=== PATIENT | female | born 1940 | race Caucasian/White ===

== ENCOUNTER 2017-02-16 23:35 | Emergency (ER) | payer MEDICARE, BC ==
[2017-02-16 23:35] VITALS: BMI 26.6
[2017-02-16 23:58] VITALS: RESP 20; TEMP 97.6
--- NOTE | 2017-02-17 00:07 | C.PDOC ---
History Of Present Illness The patient reports that she tripped and fell 1 hour [employer], and sustained forehead laceration. Denies LOC, dizziness, nausea, vomiting, vision changes, numbness, weakness. Time Seen by Provider: 02/16/17 23:37 Chief Complaint (Nursing): Abnormal Skin Integrity History Per: Patient History/Exam Limitations: no limitations Onset/Duration Of Symptoms: Persistent Current Symptoms Are (Timing): Still Present Quality Of Symptoms: Painful Severity: Mild Pain Scale Rating Of: 5 Recent travel outside of the [place]: No Past Medical History Reviewed: Historical Data, Nursing Documentation, Vital Signs Vital Signs: Last Vital Signs Temp 97.6 F 02/17/17 01:41 Pulse 82 02/17/17 01:41 Resp 20 02/17/17 01:41 BP 119/76 02/17/17 01:41 Pulse Ox 100 02/17/17 01:45 - Medical History PMH: Kidney Stones - [facility] Procedures CATARAC PHACOEMULS/ASPIR (09/11/13) CLOSED ENDOSCOPIC BIOPSY OF LARGE INTESTINE (02/11/14) CYSTOSCOPY NEC (11/27/06) ESOPHAGOGASTRODUODENOSCOPY [EGD] W/CLOSED BIOPSY (03/01/04) FLEXIBLE SIGMOIDOSCOPY (03/26/03) INJECT/INFUSE NEC (03/16/06) INSERT LENS AT CATAR EXT (09/11/13) MAGNETIC RESONANCE IMAGING OF SPINAL CANAL (11/28/06) REMOV URETERAL DRAIN (11/27/06) RETROGRADE PYELOGRAM (07/07/14) URETERAL CATHETERIZATION (07/07/14) Family History: States: No Known Family Hx - Social History Hx Tobacco Use: No Hx Alcohol Use: No Hx Substance Use: No - Immunization History Hx Tetanus Toxoid Vaccination: Yes Review Of Systems Except As Marked, All Systems Reviewed And Found Negative. Constitutional: Negative for: Fever, Chills Gastrointestinal: Negative for: Nausea, Vomiting Musculoskeletal: Negative for: Neck Pain Skin: Positive for: Other (+Forehead laceration) Neurological: Negative for: Weakness, Numbness, Dizziness Physical Exam - Physical Exam Appears: Non-toxic, No Acute Distress Skin: Warm, Dry, No Rash Head: Normacephalic, Laceration (1.0 cm linear laceration above the right eyebrow with minimal bleeding.) Eye(s): bilateral: Normal Inspection, PERRL, EOMI Ear(s): Bilateral: Normal Oral Mucosa: Moist Neck: No Midline Cervical Tenderness, No Paracervical Tenderness, No Step Off Deformity, Supple Chest: Symmetrical, No Deformity Cardiovascular: Rhythm Regular, No Friction Rub, No Murmur Respiratory: Normal Breath Sounds, No Accessory Muscle Use, No Rales, No Rhonchi , No Wheezing Gastrointestinal/Abdominal: Soft, No Tenderness Back: No CVA Tenderness, No Vertebral Tenderness, No Paraspinal Tenderness Extremity: Normal ROM, No Tenderness, No Deformity Neurological/Psych: Oriented x3, Normal Speech, Normal Cognition, Normal Cranial Nerves, Normal Motor, Other (No neuro deficit) Gait: Steady ED Course And Treatment O2 Sat by Pulse Oximetry: 100 (Room air) Pulse Ox Interpretation: Normal - CT Scan/US CT Head w/o contrast Other Rad Studies (CT/US): Read By Radiologist, Radiology Report Reviewed CT/US Interpretation: FINDINGS: Brain: No acute intracranial hemorrhage. Age- appropriate periventricular white matter disease. No edema. Bilateral basal ganglia calcifications are present. Ventricles: Age-appropriate ventriculomegaly. Bones: No acute displaced fracture. Sinuses: An air fluid level is identified within the right maxillary sinus, along with mucoperiosteal thickening. Mastoid air cells: Unremarkable as visualized. No mastoid effusion. IMPRESSION: No acute intracranial hemorrhage, or suspicious mass effect. Right maxillary sinus disease, as detailed above. CT Cervical Spine w/o contrast Other Rad Studies (CT/US): Read By Radiologist, Radiology Report Reviewed CT/US Interpretation: FINDINGS: Vertebrae: No acute fracture. Alignment: Preservation of the normal curvature of the cervical spine. Discs/spinal canal/ neural foramina: No acute findings. Degenerative disease is noted, with osteophyte formation and disc space narrowing. 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 Soft tissues: Symmetric. Lung apices: The visualized lung apices are clear. IMPRESSION: Degenerative disease, without acute fracture. Procedure: Wound Repair - Time Out Time Out: Side verified, Site verified - Procedure Procedure: Wound Repair: right forehead laceration - Consent Obtained Consent obtained: Verbal - Performed by Performed by: Mid-level Provider (Carlee) - Indications Indication(s):: Laceration - Location Location:: Face Shape:: Linear Dimensions Length cm: 1 Depth:: Epidermis - Anesthetic Technique Anesthetic Technique: Local Local/Regional Anesthetic:: Lidocaine 1% w/epi - Debris Debris:: None - Complexity Complexity:: Simple (one layer) - Wound repair method Sutures:: # (three), Size (5-0), Type (nylon), Technique (interrupted) - Patient tolerated procedure Patient Tolerated Procedure:: Well Medical Decision Making Medical Decision Making: Plan: Tetanus is up to date, no tetanus ordered. -CT Cervical Spine -CT Head w/o contrast -Tylenol -Bacitracin Progress: On re-exam, the patient reports improvement of symptoms. Ambulatory in the ED with steady gait, A&O x3. Lungs remain CTA, heart is RRR, airways are patent. Abdomen is soft, non-tender and the patient tolerating PO well. Follow up with the medical doctor within 1-2 days without fail. Return if worsened. Disposition - Disposition Referrals: [facility] [Outside] Disposition: HOME/ ROUTINE Disposition Time: 01:42 Condition: GOOD Additional Instructions: Wash the area with soap and water twice a day, then appky bacitracin and band- aid. Sutures to be removed within 5-7 days. return to the ED if change in behavior, vomiting, severe headache. Prescriptions: Bacitracin 1 gm TOP BID #1 tube Instructions: Laceration (DC), Head Injury in Children (ED) - Clinical Impression Clinical Impression: Laceration of forehead, Minor head injury
[2017-02-17] MEDS ORDERED: Bacitracin 500 Units/gm Oint Foilpak UD TOP ONE (00:20)
[2017-02-17] MEDS ORDERED: Epinephrine /Lidocaine HCL 1:100,000/2% 30 ml INJ ONE (00:20)
[2017-02-17] MEDS ORDERED: Bacitracin 500 Units/gm Oint Foilpak UD ONE (00:45)
[2017-02-17] MEDS ORDERED: Lidocaine 1% w Epi 1:100,000 Inj ONE (00:45)
--- NOTE | 2017-02-17 01:31 | CT ---
EXAM: CT Head Without Intravenous Contrast CLINICAL HISTORY: 76 years old, female; Pain; Headache and other: Forehead injury; Additional info: Head injury to the right forehead, headache TECHNIQUE: Axial computed tomography images of the head/brain without intravenous contrast. This CT exam was performed using one or more of the following dose reduction techniques: automated exposure control, adjustment of the mA and/or kV according to patient size, and/or use of iterative reconstruction technique. COMPARISON: No relevant prior studies available. FINDINGS: Brain: No acute intracranial hemorrhage. Age-appropriate periventricular white matter disease. No edema. Bilateral basal ganglia calcifications are present. Ventricles: Age-appropriate ventriculomegaly. Bones: No acute displaced fracture. Sinuses: An air fluid level is identified within the right maxillary sinus, along with mucoperiosteal thickening. Mastoid air cells: Unremarkable as visualized. No mastoid effusion. IMPRESSION: No acute intracranial hemorrhage, or suspicious mass effect. Right maxillary sinus disease, as detailed above.
--- NOTE | 2017-02-17 01:33 | CT ---
EXAM: CT Cervical Spine Without Intravenous Contrast CLINICAL HISTORY: 76 years old, female; Pain; Neck pain; Additional info: Fall, head injury TECHNIQUE: Axial computed tomography images of the cervical spine without intravenous contrast. This CT exam was performed using one or more of the following dose reduction techniques: automated exposure control, adjustment of the mA and/or kV according to patient size, and/or use of iterative reconstruction technique. Coronal and sagittal reformatted images were created and reviewed. COMPARISON: No relevant prior studies available. FINDINGS: Vertebrae: No acute fracture. Alignment: Preservation of the normal curvature of the cervical spine. Discs/spinal canal/neural foramina: No acute findings. Degenerative disease is noted, with osteophyte formation and disc space narrowing. 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 IMPRESSION: Degenerative disease, without acute fracture.
[2017-02-17 01:42] VITALS: BP 119/76; PULSE 82
[2017-02-17 01:45] VITALS: O2SAT 100
== END 2017-02-17 01:48 | disposition home or self-care (01) ==
LOC: C.ER 23:35
DX: S01.81XA Laceration without foreign body of other part of head, initial encounter (principal); W10.9XXA Fall (on) (from) unspecified stairs and steps, initial encounter; Y92.9 Unspecified place or not applicable

== ENCOUNTER 2017-02-22 12:55 | Emergency (ER) | payer MEDICARE, BC ==
[2017-02-22 12:56] VITALS: BMI 26.6
[2017-02-22 13:08] VITALS: BP 116/73; PULSE 77; TEMP 97.2; O2SAT 100
--- NOTE | 2017-02-22 14:02 | C.PDOC ---
- HPI Time Seen by Provider: 02/22/17 13:35 Chief Complaint (Nursing): Abnormal Skin Integrity Past Medical History Vital Signs: Last Vital Signs Temp 97.2 F L 02/22/17 13:04 Pulse 77 02/22/17 13:04 Resp 18 02/22/17 13:04 BP 116/73 02/22/17 13:04 Pulse Ox 100 02/22/17 13:04 - Medical History PMH: Kidney Stones Denies: Depression, Chronic Kidney Disease - [facility] Procedures CATARAC PHACOEMULS/ASPIR (09/11/13) CLOSED ENDOSCOPIC BIOPSY OF LARGE INTESTINE (02/11/14) CYSTOSCOPY NEC (11/27/06) ESOPHAGOGASTRODUODENOSCOPY [EGD] W/CLOSED BIOPSY (03/01/04) FLEXIBLE SIGMOIDOSCOPY (03/26/03) INJECT/INFUSE NEC (03/16/06) INSERT LENS AT CATAR EXT (09/11/13) MAGNETIC RESONANCE IMAGING OF SPINAL CANAL (11/28/06) REMOV URETERAL DRAIN (11/27/06) RETROGRADE PYELOGRAM (07/07/14) URETERAL CATHETERIZATION (07/07/14) Family History: States: Unknown Family Hx - Social History Hx Tobacco Use: No Hx Alcohol Use: No Hx Substance Use: No - Immunization History Hx Tetanus Toxoid Vaccination: Yes ED Course And Treatment O2 Sat by Pulse Oximetry: 100 Disposition Counseled Patient/Family Regarding: Diagnosis - Disposition Disposition: HOME/ ROUTINE Disposition Time: 14:00 Condition: GOOD Instructions: Head Injury (ED), Stitches Removal (ED) - Clinical Impression Clinical Impression: Fall, Head injury, Visit for suture removal
[2017-02-22] MEDS ORDERED: Bacitracin Ointment 30 GM TUBE TOP STA (14:14)
--- NOTE | 2017-02-22 14:14 | C.PDOC ---
History Of Present Illness 76 year old female presents to the ED for removal of stitches from the forehead but stated that she fell this morning hitting the back of her head. Patient reports slipping and having a mechanical fall on wood floor. Patient notes taking Tylenol but denies taking blood thinners. Patient had stitches placed on head 02/17/17. Patient notes minimal pain to back of the head, but denies LOC, dizziness, headache, SOB, vomiting, or any other complaints. Time Seen by Provider: 02/22/17 13:35 Chief Complaint (Nursing): Abnormal Skin Integrity History Per: Patient History/Exam Limitations: no limitations Onset/Duration Of Symptoms: Hrs Current Symptoms Are (Timing): Still Present Location Of Injury: Anterior: Face (Stitches removal), Posterior: Head (fell hitting head) Severity: Mild Past Medical History Reviewed: Historical Data, Nursing Documentation, Vital Signs Vital Signs: Last Vital Signs Temp 97.2 F L 02/22/17 13:04 Pulse 77 02/22/17 13:04 Resp 20 02/22/17 14:35 BP 116/73 02/22/17 13:04 Pulse Ox 100 02/22/17 14:29 - Medical History PMH: Kidney Stones - [facility] Procedures CATARAC PHACOEMULS/ASPIR (09/11/13) CLOSED ENDOSCOPIC BIOPSY OF LARGE INTESTINE (02/11/14) CYSTOSCOPY NEC (11/27/06) ESOPHAGOGASTRODUODENOSCOPY [EGD] W/CLOSED BIOPSY (03/01/04) FLEXIBLE SIGMOIDOSCOPY (03/26/03) INJECT/INFUSE NEC (03/16/06) INSERT LENS AT CATAR EXT (09/11/13) MAGNETIC RESONANCE IMAGING OF SPINAL CANAL (11/28/06) REMOV URETERAL DRAIN (11/27/06) RETROGRADE PYELOGRAM (07/07/14) URETERAL CATHETERIZATION (07/07/14) Family History: States: Unknown Family Hx - Social History Hx Tobacco Use: No Hx Alcohol Use: No Hx Substance Use: No - Immunization History Hx Tetanus Toxoid Vaccination: Yes Review Of Systems Except As Marked, All Systems Reviewed And Found Negative. Respiratory: Negative for: Shortness of Breath Gastrointestinal: Negative for: Vomiting Skin: Positive for: Bruising (Back of the head. Minimal pain fo rback of the head) Neurological: Positive for: Other. Negative for: Headache, Dizziness Physical Exam - Physical Exam Appears: Non-toxic, No Acute Distress Skin: Warm, Dry Head: Tenderness (Tenderness to palpation of the occipital and upper parietal head) Eye(s): bilateral: Normal Inspection, PERRL, EOMI Neck: Normal ROM, No Midline Cervical Tenderness, No Paracervical Tenderness Chest: Symmetrical Cardiovascular: Rhythm Regular, No Murmur Respiratory: Normal Breath Sounds, No Rales, No Rhonchi, No Wheezing Neurological/Psych: Oriented x3, Normal Speech, Normal Cognition, Normal Cranial Nerves (Cranial nerve 2-12 intact), No Cerebellar Signs ED Course And Treatment O2 Sat by Pulse Oximetry: 100 (Room air) Pulse Ox Interpretation: Normal Medical Decision Making Medical Decision Making: Sutures removed No indication for CT at this time Plan dc home - return to the ED for any few or worsening symptoms Disposition - Disposition Disposition: HOME/ ROUTINE Disposition Time: 00:00 Condition: GOOD Instructions: Stitches Removal (ED), Head Injury (ED) - Clinical Impression Clinical Impression: Fall, Head injury, Visit for suture removal - Scribe Statement The provider has reviewed the documentation as recorded by the Scribe Ankit clement All medical record entries made by the Scribe were at my direction and personally dictated by me. I have reviewed the chart and agree that the record accurately reflects my personal performance of the history, physical exam, medical decision making, and the department course for this patient. I have also personally directed, reviewed, and agree with the discharge instructions and disposition.
[2017-02-22] MEDS ORDERED: Bacitracin 500 Units/gm Oint Foilpak UD ONE (14:18)
[2017-02-22 14:35] VITALS: RESP 20
== END 2017-02-22 14:34 | disposition home or self-care (01) ==
LOC: C.ER 12:55
DX: Z48.02 Encounter for removal of sutures (principal); S09.90XA Unspecified injury of head, initial encounter; W01.0XXA Fall on same level from slipping, tripping and stumbling without subsequent striking against object, initial encounter; Y92.009 Unspecified place in unspecified non-institutional (private) residence as the place of occurrence of the external cause

== ENCOUNTER 2017-10-06 23:21 | Inpatient (IN) | payer MEDICARE, BC ==
[2017-10-06 23:22] VITALS: BMI 23.6
[2017-10-06] MEDS ORDERED: Sodium Chloride 0.9% 500 ML IV ONE (23:38)
--- NOTE | 2017-10-06 23:49 | C.PDOC ---
History Of Present Illness 76 year old female with a Hx of ulcerative colitis presents to the ER with a complaint of lower abdominal pain and cramping x1 day. Denies fever, nausea, vomiting, or other complaints. Time Seen by Provider: 10/06/17 23:25 Chief Complaint (Nursing): Abdominal Pain History Per: Patient History/Exam Limitations: no limitations Onset/Duration Of Symptoms: Days Current Symptoms Are (Timing): Still Present Location Of Pain/Discomfort: RUQ, LUQ Radiation Of Pain To:: None Quality Of Discomfort: Cramping Associated Symptoms: denies: Fever, Chills, Nausea, Vomiting Exacerbating Factors: None Alleviating Factors: None Recent travel outside of the [place]: No Abnormal Vaginal Bleeding: No Past Medical History Reviewed: Historical Data, Nursing Documentation, Vital Signs Vital Signs: Last Vital Signs Temp 97.7 F 10/08/17 08:42 Pulse 62 10/08/17 08:42 Resp 18 10/08/17 08:42 BP 105/66 10/08/17 08:42 Pulse Ox 96 10/08/17 08:42 - Medical History PMH: Kidney Stones - [facility] Procedures CATARAC PHACOEMULS/ASPIR (09/11/13) CLOSED ENDOSCOPIC BIOPSY OF LARGE INTESTINE (02/11/14) CYSTOSCOPY NEC (11/27/06) ESOPHAGOGASTRODUODENOSCOPY [EGD] W/CLOSED BIOPSY (03/01/04) FLEXIBLE SIGMOIDOSCOPY (03/26/03) INJECT/INFUSE NEC (03/16/06) INSERT LENS AT CATAR EXT (09/11/13) MAGNETIC RESONANCE IMAGING OF SPINAL CANAL (11/28/06) REMOV URETERAL DRAIN (11/27/06) RETROGRADE PYELOGRAM (07/07/14) URETERAL CATHETERIZATION (07/07/14) Family History: States: Unknown Family Hx - Social History Hx Tobacco Use: No Hx Alcohol Use: No Hx Substance Use: No - Immunization History Hx Tetanus Toxoid Vaccination: Yes Review Of Systems Constitutional: Negative for: Fever, Chills Gastrointestinal: Positive for: Abdominal Pain. Negative for: Nausea, Vomiting Physical Exam - Physical Exam Appears: Non-toxic, No Acute Distress Skin: Normal Color, Warm, Dry Head: Atraumatic, Normacephalic Eye(s): bilateral: Normal Inspection Oral Mucosa: Moist Chest: Symmetrical, No Tenderness Cardiovascular: Rhythm Regular Respiratory: Normal Breath Sounds, No Rales, No Rhonchi, No Wheezing Gastrointestinal/Abdominal: Soft, Tenderness (Mild lower), No Guarding, No Rebound Neurological/Psych: Oriented x3, Normal Speech, Other (No focal deficits) ED Course And Treatment - Laboratory Results Result Diagrams: 10/08/17 08:13 10/08/17 08:13 O2 Sat by Pulse Oximetry: 97 (Room air) Pulse Ox Interpretation: Normal Medical Decision Making Medical Decision Making: suspect uc flare Blood work, cultures, and urinalysis ordered. IV fluids administered. Disposition - Disposition Disposition: HOSPITALIZED Disposition Time: 03:00 Condition: STABLE - Clinical Impression Clinical Impression: Colitis, Ulcerative colitis - Scribe Statement The provider has reviewed the documentation as recorded by the Scribberkley Elder All medical record entries made by the Boibberkley were at my direction and personally dictated by me. I have reviewed the chart and agree that the record accurately reflects my personal performance of the history, physical exam, medical decision making, and the department course for this patient. I have also personally directed, reviewed, and agree with the discharge instructions and disposition.
[2017-10-07 00:18] LABS: WHITE BLOOD COUNT 9.4 K/uL (4.8-10.8)
[2017-10-07 00:21] LABS: BASO % 0.1 % (0.0-2.0); EOS # 0.1 K/uL (0.0-0.7); HEMATOCRIT 36.9 % (34.0-47.0); LYMPH # 0.8 K/uL (1.0-4.3); LYMPH % 8.5 % (20.0-40.0); MEAN CELL VOLUME 97.3 fL (81.0-99.0); MEAN CORPUSCULAR HEMOGLOBIN 33.2 pg (27.0-31.0); MEAN CORPUSCULAR HGB CONC 34.1 g/dL (33.0-37.0); MEAN PLATELET VOLUME 8.3 fL (7.2-11.7); MONO # 0.6 K/uL (0.0-0.8); MONO % 6.8 % (0.0-10.0); PLATELET COUNT 209 K/uL (130-400); RED CELL DISTRIBUTION WIDTH 12.6 % (11.5-14.5)
[2017-10-07 00:26] LABS: INR 1.1
[2017-10-07 00:36] LABS: VENOUS BLOOD GAS BASE EXCESS 6.9 mmol/L (0.0-2.0); VENOUS BLOOD GAS PCO2 52 mmHg (40-60); VENOUS BLOOD PH 7.41 (7.32-7.43)
[2017-10-07 00:44] LABS: ALB/GLOB RATIO 1.7 (1.0-2.1); ALKALINE PHOSPHATASE 63 U/L (38-126); ALT/SGPT 36 U/L (9-52); AST/SGOT 25 U/L (14-36); BILIRUBIN,TOTAL 0.7 mg/dL (0.2-1.3); BLOOD UREA NITROGEN 13 mg/dL (7-17); CALCIUM 8.4 mg/dl (8.6-10.4); CARBON DIOXIDE 28 mmol/L (22-30); CHLORIDE 97 mmol/L (98-107); GFR AFRICAN-AMERICAN > 60; GLUCOSE,RANDOM 109 mg/dL (65-105); POTASSIUM 3.3 mmol/L (3.6-5.2); SODIUM 134 mmol/L (132-148); TOTAL PROTEIN 6.5 g/dL (6.3-8.3)
[2017-10-07] MEDS ORDERED: Potassium Chloride 20 mEq ER Tab PO STA (00:45)
[2017-10-07 00:53] LABS: EOSINOPHIL 2 % (0-4); NEUTROPHIL 75 % (50-75); REACTIVE LYMPHOCYTES 1 % (0-0); TOTAL CELLS COUNTED 100
[2017-10-07] MEDS ORDERED: Potassium Chloride 20 mEq ER Tab PO ONE ×2 (01:22→01:23)
[2017-10-07 01:51] LABS: URINE BACTERIA RARE (<OCC); URINE BILIRUBIN NEGATIVE (NEGATIVE); URINE BLOOD 1+ (NEGATIVE); URINE COLOR Yellow (YELLOW); URINE GLUCOSE (UA) NORMAL (Normal); URINE KETONE NEGATIVE (NEGATIVE); URINE LEUKOCYTE ESTERASE NEG Leu/uL (Negative); URINE PROTEIN NEGATIVE (NEGATIVE); URINE UROBILINOGEN NORMAL mg/dL (0.2-1.0); WBC URINE 1 /hpf (0-5)
[2017-10-07] MEDS ORDERED: Iodixanol 320 MG/ML 200 ML BOTTLE IV ONE (02:51)
[2017-10-07] MEDS ORDERED: Iodixanol 320 mg/ml 150 ml Bottle IV ONE (02:52)
--- NOTE | 2017-10-07 03:58 | CT ---
EXAM: CT Abdomen and Pelvis With Intravenous Contrast EXAM DATE/TIME: 10/07/2017 12:45 AM CLINICAL HISTORY: 76 years old, female; Pain; Abdominal pain; Generalized; Additional info: Abd pain h/o of ulcerative colitis TECHNIQUE: Axial computed tomography images of the abdomen and pelvis with intravenous contrast. All CT scans at this facility use one or more dose reduction techniques, viz.: automated exposure control; ma/kV adjustment per patient size (including targeted exams where dose is matched to indication; i.e. head); or iterative reconstruction technique. Coronal and sagittal reformatted images were created and reviewed. CONTRAST: 100 mL of [id number] administered intravenously. COMPARISON: No relevant prior studies available. FINDINGS: LIMITATIONS: Moderate streak/motion artifact. LOWER THORAX: No infiltrate seen in the lung bases. ABDOMEN: LIVER: Fatty infiltration of the liver. GALLBLADDER AND BILE DUCTS: No CT evidence of acute cholecystitis. No evidence of significant biliary ductal dilatation. PANCREAS: No CT evidence of acute pancreatitis. SPLEEN: No acute abnormality of the spleen identified. ADRENALS: No acute abnormality of the adrenal glands identified. KIDNEYS AND URETERS: Bilateral extrarenal pelvises, a normal variant. No evidence of hydroureter or obstructing ureteral stones. STOMACH AND BOWEL: Mild circumferential wall thickening of the rectum, which could be secondary to proctitis. Intramural lipomatosis of the distal sigmoid colon. This is a nonspecific finding, but can be a sign of previous episodes of inflammatory bowel disease. Otherwise, no significant abnormality of the bowel is identified, allowing for motion artifact. No evidence of bowel obstruction. APPENDIX: Normal appendix is not seen, however, there are no significant inflammatory changes visualized in the expected location of the appendix to suggest appendicitis. Recommend clinical correlation. PELVIS: BLADDER: No acute abnormality of the bladder identified. REPRODUCTIVE: Uterus is surgically absent. ABDOMEN and PELVIS: INTRAPERITONEAL SPACE: No evidence of free intraperitoneal air or fluid. BONES/JOINTS: Bony structures appear demineralized. SOFT TISSUES: No acute abnormality of the visualized soft tissues is seen. VASCULATURE: No evidence of abdominal aortic aneurysm. No evidence of periaortic hemorrhage. LYMPH NODES: No evidence of diffuse lymphadenopathy. IMPRESSION: - Mild rectal wall thickening, which could represent proctitis. - Otherwise, no evidence of significant acute process, allowing for motion artifact. - See above for remaining findings.
[2017-10-07] MEDS ORDERED: Piperacill/Tazo 3.375gm in Dex 3.375 GM/50 ML BAG IVPB STA (04:00)
[2017-10-07] MEDS: Dextrose 5%/0.45% NS 1,000 ML IV SCH ×2 (06:47→17:00)
[2017-10-07 07:09] LABS: ALKALINE PHOSPHATASE 46 U/L (38-126); ALT/SGPT 35 U/L (9-52); AST/SGOT 28 U/L (14-36); BILIRUBIN,TOTAL 0.6 mg/dL (0.2-1.3); BLOOD UREA NITROGEN 11 mg/dL (7-17); CARBON DIOXIDE 23 mmol/L (22-30); CHLORIDE 104 mmol/L (98-107); GFR AFRICAN-AMERICAN > 60; GLUCOSE,RANDOM 73 mg/dL (65-105); POTASSIUM 3.5 mmol/L (3.6-5.2); SODIUM 135 mmol/L (132-148); TOTAL PROTEIN 5.7 g/dL (6.3-8.3)
[2017-10-07 07:25] LABS: BASO % 0.6 % (0.0-2.0); EOS # 0.2 K/uL (0.0-0.7); EOS % 2.8 % (0.0-4.0); HEMATOCRIT 33.4 % (34.0-47.0); LYMPH # 1.5 K/uL (1.0-4.3); LYMPH % 19.5 % (20.0-40.0); MEAN CELL VOLUME 97.8 fL (81.0-99.0); MEAN CORPUSCULAR HEMOGLOBIN 33.2 pg (27.0-31.0); MEAN CORPUSCULAR HGB CONC 33.9 g/dL (33.0-37.0); MEAN PLATELET VOLUME 8.2 fL (7.2-11.7); MONO % 12.9 % (0.0-10.0); NRBC % 0.1 % (0.0-2.0); RED CELL DISTRIBUTION WIDTH 12.7 % (11.5-14.5); WHITE BLOOD COUNT 7.7 K/uL (4.8-10.8)
[2017-10-07] MEDS: Piperacill/Tazo 3.375gm in Dex 3.375 GM/50 ML BAG IVPB SCH ×3 (10:22→21:11)
--- NOTE | 2017-10-07 12:30 | CP.PCM.CON ---
History of Present Illness - History of Present Illness History of Present Illness: COVERING DR LEMUS 76 yo female with h/o UC for past 40 years admitted with two day h/o LLQ pain and increasing stool frequency from 2-3 soft stools per day to now loose and watery diarrhea for past 24 hours. Reports she has had colonoscopies annually with Dr Lemus but is unsure of last exam. MEdical records show pathology from 2014 showing only distal active UC. SHe has been on Lialda 2.4g bid. No bleeding or melena. No N/V. No recent travel or antibiotic use. Review of Systems - Constitutional Constitutional: Fever. absent: Chills - Cardiovascular Cardiovascular: absent: Chest Pain, Diaphoresis, Dyspnea, Orthopnea - Respiratory Respiratory: absent: Cough, Chest Congestion - Gastrointestinal Gastrointestinal: As Per HPI, Abdominal Pain, Cramping, Diarrhea, Excessive Flatus Additional comments: Mucoid stool for past 3 days. - Genitourinary Genitourinary: absent: Dysuria, Hematuria, Nocturia, Urinary Urgency Past Patient History - Infectious Disease Hx of Infectious Diseases: None - Tetanus Immunizations Tetanus Immunization: Unknown - Past Medical History & Family History Past Medical History?: Yes - Past Social History Smoking Status: Former Smoker Alcohol: None Drugs: Denies - CARDIAC Hx Cardiac Disorders: No - PULMONARY Hx Respiratory Disorders: No - NEUROLOGICAL Hx Neurological Disorder: No - HEENT Hx HEENT Problems: No - RENAL Hx Kidney Stones: Yes (2013) - ENDOCRINE/METABOLIC Hx Endocrine Disorders: No - HEMATOLOGICAL/ONCOLOGICAL Hx Blood Transfusions: No Hx Cirrhosis: No Hx Hepatitis A: No Hx Hepatitis B: No Hx Hepatitis C: No Hx Human Immunodeficiency Virus (HIV): No - INTEGUMENTARY Hx Dermatological Problems: No - MUSCULOSKELETAL/RHEUMATOLOGICAL Hx Falls: No - GASTROINTESTINAL Hx Gastrointestinal Disorders: Yes (ulcerative colitis dx 1962) Hx Bowel Surgery: No Hx Clostridium Difficile: No Hx Colitis: Yes (Ulcerative colitis since 1962. Followed by Dr Lemus.) Hx Colostomy: No Hx Constipation: No Hx Crohn's Disease: No Hx Diarrhea: Yes Hx Diverticulitis: No Hx Esophageal Varices: No Hx Fatty Liver Disease: No Hx Gall Bladder Disease: No Hx Gastritis: No Hx Gastroesophageal Reflux: No Hx Hemorrhoids: No Hx Ileostomy: No Hx Irritable Bowel: No Hx Liver Failure: No Hx Nausea: No Hx Pancreatitis: No HX Swallowing Problems: No Hx Ulcer: No Hx Vomiting: No - GENITOURINARY/GYNECOLOGICAL Hx Genitourinary Disorders: Yes (Kidney stones last 2013) - PSYCHIATRIC Hx Psychophysiologic Disorder: No Hx Substance Use: No - SURGICAL HISTORY Hx Surgeries: Yes Hx Section: Yes - ANESTHESIA Hx Anesthesia: Yes Hx Anesthesia Reactions: No Hx Malignant Hyperthermia: No Meds Allergies/Adverse Reactions: Allergies Allergy/AdvReac Type Severity Reaction Status Date / Time No Known Allergies Allergy Verified 02/22/17 13:09 - Medications Medications: Current Medications Dextrose/Sodium Chloride (Dextrose 5%/0.45% Ns 1000 Ml) 1,000 mls @ 80 mls/hr IV .[id number] [facility] Last Admin: 10/07/17 06:47 Dose: 80 mls/hr Piperacillin Sod/Tazobactam Sod (Zosyn 3.375 Gm Iv Premix) 3.375 gm in 50 mls @ 100 mls/hr IVPB Q6H [facility] Last Admin: 10/07/17 10:22 Dose: 100 mls/hr Physical Exam - Constitutional Appears: No Acute Distress - Head Exam Head Exam: ATRAUMATIC, NORMOCEPHALIC - Eye Exam Eye Exam: EOMI, PERRL - Respiratory Exam Respiratory Exam: Clear to Auscultation Bilateral, NORMAL BREATHING PATTERN - Cardiovascular Exam Cardiovascular Exam: REGULAR RHYTHM, +S1 - GI/Abdominal Exam GI & Abdominal Exam: Normal Bowel Sounds, Soft, Tenderness. absent: Distended, Guarding, Mass, Rebound, Rigid Additional comments: Has LLQ tendernes to L flank. No mass, rebound or guarding. Rectal deferred with multiple family members present. - Rectal Exam Rectal Exam: Deferred - Extremities Exam Extremities exam: Positive for: normal inspection. Negative for: joint swelling , pedal edema - Neurological Exam Neurological exam: Alert, Oriented x3 - Psychiatric Exam Psychiatric exam: Normal Affect, Normal Mood - Skin Skin Exam: Dry, Warm Results - Vital Signs Recent Vital Signs: Last Vital Signs Temp 98.2 F 10/07/17 08:43 Pulse 67 10/07/17 08:43 Resp 20 10/07/17 08:43 BP 106/61 10/07/17 08:43 Pulse Ox 97 10/07/17 08:43 - Labs Result Diagrams: 10/07/17 07:23 10/07/17 06:52 Labs: Laboratory Results - last 24 hr 10/07/17 10/07/17 10/07/17 00:14 00:14 00:14 WBC 9.4 RBC 3.79 L Hgb 12.6 Hct 36.9 MCV 97.3 MCH 33.2 H MCHC 34.1 RDW 12.6 Plt Count 209 MPV 8.3 Neut % (Auto) 83.6 H Lymph % (Auto) 8.5 L [place] % (Auto) 6.8 Eos % (Auto) 1.0 Baso % (Auto) 0.1 Neut # 7.9 H Lymph # 0.8 L [place] # 0.6 Eos # 0.1 Baso # 0.0 Neutrophils % (Manual) 75 Lymphocytes % (Manual) 17 L Reactive Lymphs % 1 H Monocytes % (Manual) 5 Eosinophils % (Manual) 2 Platelet Estimate Normal PT 12.0 INR 1.1 APTT 26 pO2 VBG pH VBG pCO2 VBG HCO3 VBG Total CO2 VBG O2 Sat (Calc) VBG Base Excess VBG Potassium Glucose Lactate Crit Value Called To Crit Value Called By Crit Value Read Back Blood Gas Notified Time Sodium 134 Potassium 3.3 L Chloride 97 L Carbon Dioxide 28 Anion Gap 13 BUN 13 Creatinine 0.7 Est GFR ( Amer) > 60 Est GFR (Non-Af Amer) > 60 Random Glucose 109 H Calcium 8.4 L Total Bilirubin 0.7 AST 25 ALT 36 Alkaline Phosphatase 63 Total Protein 6.5 Albumin 4.1 Globulin 2.4 Albumin/Globulin Ratio 1.7 Lipase 21 L Venous Blood Potassium Urine Color Urine Clarity Urine pH Ur Specific [place] Urine Protein Urine Glucose (UA) Urine Ketones Urine Blood Urine Nitrate Urine Bilirubin Urine Urobilinogen Ur Leukocyte Esterase Urine WBC (Auto) Urine Bacteria 10/07/17 10/07/17 10/07/17 00:28 01:45 06:52 WBC RBC Hgb Hct MCV MCH MCHC RDW Plt Count MPV Neut % (Auto) Lymph % (Auto) [place] % (Auto) Eos % (Auto) Baso % (Auto) Neut # Lymph # [place] # Eos # Baso # Neutrophils % (Manual) Lymphocytes % (Manual) Reactive Lymphs % Monocytes % (Manual) Eosinophils % (Manual) Platelet Estimate PT INR APTT pO2 14 L VBG pH 7.41 VBG pCO2 52 VBG HCO3 28.1 VBG Total CO2 34.6 H VBG O2 Sat (Calc) 23.7 L VBG Base Excess 6.9 H VBG Potassium 3.3 L Glucose 123 H Lactate 1.3 Crit Value Called To Dr sharif Crit Value Called By Katerina burns rt Crit Value Read Back Y Blood Gas Notified Time 35 Sodium 138.0 135 Potassium 3.5 L Chloride 103.0 104 Carbon Dioxide 23 Anion Gap 11 BUN 11 Creatinine 0.5 L Est GFR ( Amer) > 60 Est GFR (Non-Af Amer) > 60 Random Glucose 73 Calcium 7.0 L Total Bilirubin 0.6 AST 28 ALT 35 Alkaline Phosphatase 46 Total Protein 5.7 L Albumin 2.8 L D Globulin 2.9 Albumin/Globulin Ratio 1.0 Lipase Venous Blood Potassium 3.3 L Urine Color Yellow Urine Clarity Clear Urine pH 5.0 Ur Specific [place] 1.013 Urine Protein Negative Urine Glucose (UA) Normal Urine Ketones Negative Urine Blood 1+ H Urine Nitrate Negative Urine Bilirubin Negative Urine Urobilinogen Normal Ur Leukocyte Esterase Neg Urine WBC (Auto) 1 Urine Bacteria Rare 10/07/17 07:23 WBC 7.7 RBC 3.41 L Hgb 11.3 Hct 33.4 L MCV 97.8 MCH 33.2 H MCHC 33.9 RDW 12.7 Plt Count 164 MPV 8.2 Neut % (Auto) 64.2 Lymph % (Auto) 19.5 L [place] % (Auto) 12.9 H Eos % (Auto) 2.8 Baso % (Auto) 0.6 Neut # 4.9 Lymph # 1.5 [place] # 1.0 H Eos # 0.2 Baso # 0.0 Neutrophils % (Manual) Lymphocytes % (Manual) Reactive Lymphs % Monocytes % (Manual) Eosinophils % (Manual) Platelet Estimate PT INR APTT pO2 VBG pH VBG pCO2 VBG HCO3 VBG Total CO2 VBG O2 Sat (Calc) VBG Base Excess VBG Potassium Glucose Lactate Crit Value Called To Crit Value Called By Crit Value Read Back Blood Gas Notified Time Sodium Potassium Chloride Carbon Dioxide Anion Gap BUN Creatinine Est GFR ( Amer) Est GFR (Non-Af Amer) Random Glucose Calcium Total Bilirubin AST ALT Alkaline Phosphatase Total Protein Albumin Globulin Albumin/Globulin Ratio Lipase Venous Blood Potassium Urine Color Urine Clarity Urine pH Ur Specific [place] Urine Protein Urine Glucose (UA) Urine Ketones Urine Blood Urine Nitrate Urine Bilirubin Urine Urobilinogen Ur Leukocyte Esterase Urine WBC (Auto) Urine Bacteria - Imaging and Cardiology CT scan - abdomen Status: Image reviewed by me, Report reviewed by me CT scan - pelvis Status: Image reviewed by me, Report reviewed by me Assessment & Plan (1) LLQ abdominal pain Assessment and Plan: Patient with h/o UC presents with LLQ pain, diarrhea, CT scan showing thickening or distal colon. No bleeding, white count or travel/antibiotics. Likely reflects a flair of UC (unclear as to prior extent of disease and only rectum inflammed on 2014 biopsies). r/o C diff, intectious colitis, doubt ischemic. Have attempted to check with Dr Lemus for more information and date or recent exam. العراقي culture with stools studies ordered. Continue Lialda 4.8g per day IV fluids May need colonoscopic evaluation if not done recently and if stool studies are negative. Status: Acute Priority: High (2) Diarrhea Assessment and Plan: as above Status: Acute Priority: High (3) Ulcerative colitis, chronic Assessment and Plan: as above Status: Chronic Priority: High (4) Abnormal CT scan, colon Assessment and Plan: as above Status: Acute Priority: High
[2017-10-07] MEDS: Enoxaparin 40 mg Syringe SC SCH (13:56)
[2017-10-08] MEDS: Dextrose 5%/0.45% NS 1,000 ML IV SCH (00:56)
[2017-10-08] MEDS: Piperacill/Tazo 3.375gm in Dex 3.375 GM/50 ML BAG IVPB SCH ×4 (03:46→21:50)
[2017-10-08 08:23] LABS: HEMATOCRIT 34.5 % (34.0-47.0); MEAN CELL VOLUME 96.8 fL (81.0-99.0); MEAN CORPUSCULAR HEMOGLOBIN 33.6 pg (27.0-31.0); MEAN CORPUSCULAR HGB CONC 34.7 g/dL (33.0-37.0); MEAN PLATELET VOLUME 8.6 fL (7.2-11.7); RED CELL DISTRIBUTION WIDTH 12.7 % (11.5-14.5); WHITE BLOOD COUNT 5.4 K/uL (4.8-10.8)
[2017-10-08 09:18] LABS: ALB/GLOB RATIO 1.3 (1.0-2.1); ALKALINE PHOSPHATASE 59 U/L (38-126); ALT/SGPT 61 U/L (9-52); AST/SGOT 62 U/L (14-36); BILIRUBIN,TOTAL 0.7 mg/dL (0.2-1.3); BLOOD UREA NITROGEN 4 mg/dL (7-17); CALCIUM 7.8 mg/dl (8.6-10.4); CARBON DIOXIDE 26 mmol/L (22-30); CHLORIDE 99 mmol/L (98-107); GFR AFRICAN-AMERICAN > 60; GLUCOSE,RANDOM 96 mg/dL (65-105); SODIUM 132 mmol/L (132-148); TOTAL PROTEIN 5.3 g/dL (6.3-8.3)
--- NOTE | 2017-10-08 10:21 | CP.PCM.PN ---
Subjective - Date & Time of Evaluation Date of Evaluation: 10/08/17 Time of Evaluation: 10:18 - Subjective Subjective: Patient states that she continues to have lower abdominal cramping braun. She is having frequent, mucoid bowel movements without visible blood. She denies having nausea and vomiting. Objective - Vital Signs/Intake and Output Vital Signs (last 24 hours): Temp Pulse Resp BP Pulse Ox 97.7 F 62 18 105/66 96 10/08/17 08:42 10/08/17 08:42 10/08/17 08:42 10/08/17 08:42 10/08/17 08:42 Intake and Output: 10/08/17 10/08/17 06:59 18:59 Intake Total 1500 Balance 1500 - Medications Medications: Current Medications Enoxaparin Sodium (Lovenox) 40 mg SC DAILY [facility] Last Admin: 10/07/17 13:56 Dose: 40 mg Gabapentin (Neurontin) 100 mg PO [facility] Last Admin: 10/07/17 21:11 Dose: 100 mg Dextrose/Sodium Chloride (Dextrose 5%/0.45% Ns 1000 Ml) 1,000 mls @ 80 mls/hr IV .[id number] [facility] Last Admin: 10/08/17 00:56 Dose: 80 mls/hr Piperacillin Sod/Tazobactam Sod (Zosyn 3.375 Gm Iv Premix) 3.375 gm in 50 mls @ 100 mls/hr IVPB Q6H [facility] Last Admin: 10/08/17 03:46 Dose: 100 mls/hr Mesalamine (Rowasa Enema) 4 gm RC [facility] Last Admin: 10/07/17 21:11 Dose: 4 gm Mesalamine (Delzicol) 800 mg PO TID [facility] Last Admin: 10/07/17 19:00 Dose: 800 mg Nortriptyline HCl (Pamelor) 25 mg PO BID [facility] Last Admin: 10/07/17 19:00 Dose: 25 mg - Labs Labs: 10/08/17 08:13 10/08/17 08:13 PT 12.0 SECONDS (9.7-12.2) 10/07/17 00:14 INR 1.1 10/07/17 00:14 APTT 26 SECONDS (21-34) 10/07/17 00:14 - Constitutional Appears: No Acute Distress - Head Exam Head Exam: ATRAUMATIC, NORMOCEPHALIC - Eye Exam Eye Exam: EOMI, PERRL - Neck Exam Neck Exam: absent: Lymphadenopathy, Thyromegaly - Respiratory Exam Respiratory Exam: NORMAL BREATHING PATTERN. absent: Rales, Rhonchi, Wheezes - Cardiovascular Exam Cardiovascular Exam: REGULAR RHYTHM, +S1, +S2. absent: Gallop, Rubs, Murmur - GI/Abdominal Exam GI & Abdominal Exam: Soft, Normal Bowel Sounds. absent: Tenderness, Mass, Organomegaly - Rectal Exam Rectal Exam: Deferred - Extremities Exam Extremities Exam: absent: Calf Tenderness, Pedal Edema Assessment and Plan (1) Ulcerative colitis, chronic Assessment & Plan: Patient was last seen in the office six months ago, at which time she did not have any diarrhea and CRP was 1.7. The stool for occult blood was positive, though other stool studies are pending. The CRP is reported as >15. Recommend checking additional stool studies. Colonoscopy to be scheduled. Status: Chronic
[2017-10-08] MEDS: Enoxaparin 40 mg Syringe SC SCH (11:27)
[2017-10-08] MEDS ORDERED: Potassium Chloride 20 mEq ER Tab PO ONE (13:09)
[2017-10-08 13:45] LABS: C DIFF TOXIN A B NEGATIVE (NEGATIVE)
[2017-10-08 13:51] LABS: FECAL LEUKOCYTES POSITIVE (NEGATIVE)
[2017-10-08] MEDS ORDERED: Enoxaparin 40 mg Syringe SC SCH (14:00)
--- NOTE | 2017-10-08 14:40 | CP.PCM.PN ---
Subjective - Date & Time of Evaluation Date of Evaluation: 10/08/17 Time of Evaluation: 10:00 - Subjective Subjective: PGY3 on medicine Dr. Sheldon service: Pt seen and examined at bedside this morning. Pt reports multiple diarrhea overnight as well as lower abdominal pain. Pt reports stool got taken away from her so she does not know if there was blood inside. Pt said her diarrhea was less watery than yesterday. Denied fever, chills, n/v. Objective - Vital Signs/Intake and Output Vital Signs (last 24 hours): Temp Pulse Resp BP Pulse Ox 97.7 F 62 18 105/66 97 10/08/17 08:42 10/08/17 08:42 10/08/17 08:42 10/08/17 08:42 10/08/17 11:32 Intake and Output: 10/08/17 10/08/17 06:59 18:59 Intake Total 1500 Balance 1500 - Medications Medications: Current Medications Enoxaparin Sodium (Lovenox) 40 mg SC DAILY [facility] Last Admin: 10/08/17 11:27 Dose: 40 mg Gabapentin (Neurontin) 100 mg PO [facility] Last Admin: 10/07/17 21:11 Dose: 100 mg Piperacillin Sod/Tazobactam Sod (Zosyn 3.375 Gm Iv Premix) 3.375 gm in 50 mls @ 100 mls/hr IVPB Q6H [facility] Last Admin: 10/08/17 11:27 Dose: 100 mls/hr Potassium Chloride 20 meq/ (Dextrose/Sodium Chloride) 1,010 mls @ 80 mls/hr IV .[id number] [facility] Mesalamine (Rowasa Enema) 4 gm RC [facility] Last Admin: 10/07/17 21:11 Dose: 4 gm Mesalamine (Delzicol) 800 mg PO TID [facility] Last Admin: 10/08/17 14:16 Dose: 800 mg Nortriptyline HCl (Pamelor) 25 mg PO BID [facility] Last Admin: 10/08/17 11:27 Dose: 25 mg - Labs Labs: 10/08/17 08:13 10/08/17 08:13 PT 12.0 SECONDS (9.7-12.2) 10/07/17 00:14 INR 1.1 10/07/17 00:14 APTT 26 SECONDS (21-34) 10/07/17 00:14 - Constitutional Appears: Non-toxic, No Acute Distress - Head Exam Head Exam: NORMOCEPHALIC - Eye Exam Eye Exam: Normal appearance - ENT Exam ENT Exam: Mucous Membranes Moist - Respiratory Exam Respiratory Exam: Clear to Ausculation Bilateral, NORMAL BREATHING PATTERN. absent: Wheezes - Cardiovascular Exam Cardiovascular Exam: REGULAR RHYTHM, +S1, +S2. absent: Gallop, Rubs - GI/Abdominal Exam GI & Abdominal Exam: Soft, Tenderness (lower abdominal ), Normal Bowel Sounds - Neurological Exam Neurological Exam: Alert, Awake, Oriented x3 Assessment and Plan - Assessment and Plan (Free Text) Assessment: Chronic ulcerative colitis GI Dr. Lemus consulted, help appreciated. FOBT positive. CT showed thickened colon. CRP >15. Continue Delzicol and Rowasa Enema. F/U stool studies. F/U C. diff. Colonoscopy scheduled on Sun as per Dr. Lemus. Peripheral neuropathy Continue home med Neurontin and Pamelor. Hypokalemia Likely secondary to diarrhea. Repleted. F/U CMP tomorrow. Prophylactic measure SCD, Protonix, Lovenox. Management as per Dr. Sheldon.
[2017-10-08] MEDS: Potassium Chloride 20 MEQ in Dextrose 5%/0.45% NS 1,000 ML IV SCH (15:00)
[2017-10-09] MEDS: Potassium Chloride 20 MEQ in Dextrose 5%/0.45% NS 1,000 ML IV SCH ×3 (04:08→18:37)
[2017-10-09] MEDS: Piperacill/Tazo 3.375gm in Dex 3.375 GM/50 ML BAG IVPB SCH ×4 (04:09→22:04)
[2017-10-09 07:01] LABS: BASO % 0.6 % (0.0-2.0); EOS # 0.3 K/uL (0.0-0.7); EOS % 5.2 % (0.0-4.0); HEMATOCRIT 35.6 % (34.0-47.0); LYMPH # 2.4 K/uL (1.0-4.3); LYMPH % 40.1 % (20.0-40.0); MEAN CELL VOLUME 98.3 fL (81.0-99.0); MEAN CORPUSCULAR HEMOGLOBIN 32.7 pg (27.0-31.0); MEAN CORPUSCULAR HGB CONC 33.3 g/dL (33.0-37.0); MEAN PLATELET VOLUME 8.8 fL (7.2-11.7); MONO # 0.7 K/uL (0.0-0.8); MONO % 11.2 % (0.0-10.0); NRBC % 0.1 % (0.0-2.0); RED CELL DISTRIBUTION WIDTH 12.9 % (11.5-14.5)
--- NOTE | 2017-10-09 07:27 | CP.PCM.PN ---
Subjective - Date & Time of Evaluation Date of Evaluation: 10/09/17 Time of Evaluation: 10:00 - Subjective Subjective: PGY3 on medicine Dr. Sheldon service: Pt seen and examined at bedside this morning. Pt today complains of diarrhea not improved since yesterday. Pt also report seeing a red spot in toilet today. Pt otherwise has no other complaints. Pt said she was not given steroid treatment in the past. Objective - Vital Signs/Intake and Output Vital Signs (last 24 hours): Temp Pulse Resp BP Pulse Ox 98.2 F 96 H 20 115/73 96 10/08/17 23:30 10/08/17 23:30 10/08/17 23:30 10/08/17 23:30 10/08/17 23:30 Intake and Output: 10/09/17 10/09/17 06:59 18:59 Intake Total 600 Balance 600 - Medications Medications: Current Medications Gabapentin (Neurontin) 100 mg PO [facility] Last Admin: 10/08/17 21:50 Dose: 100 mg Piperacillin Sod/Tazobactam Sod (Zosyn 3.375 Gm Iv Premix) 3.375 gm in 50 mls @ 100 mls/hr IVPB Q6H [facility] Last Admin: 10/09/17 04:09 Dose: 100 mls/hr Potassium Chloride 20 meq/ (Dextrose/Sodium Chloride) 1,010 mls @ 80 mls/hr IV .[id number] [facility] Last Admin: 10/09/17 04:11 Dose: 80 mls/hr Mesalamine (Rowasa Enema) 4 gm RC [facility] Last Admin: 10/08/17 22:47 Dose: 4 gm Mesalamine (Delzicol) 800 mg PO TID [facility] Last Admin: 10/08/17 17:47 Dose: 800 mg Nortriptyline HCl (Pamelor) 25 mg PO BID [facility] Last Admin: 10/08/17 17:47 Dose: 25 mg Pantoprazole Sodium (Protonix Ec Tab) 40 mg PO DAILY [facility] - Labs Labs: 10/09/17 06:54 10/08/17 08:13 PT 12.0 SECONDS (9.7-12.2) 10/07/17 00:14 INR 1.1 10/07/17 00:14 APTT 26 SECONDS (21-34) 10/07/17 00:14 - Constitutional Appears: Non-toxic, No Acute Distress - Head Exam Head Exam: NORMOCEPHALIC - Eye Exam Eye Exam: Normal appearance Pupil Exam: NORMAL ACCOMODATION - Respiratory Exam Respiratory Exam: Clear to Ausculation Bilateral, NORMAL BREATHING PATTERN. absent: Wheezes - Cardiovascular Exam Cardiovascular Exam: REGULAR RHYTHM, +S1, +S2 - GI/Abdominal Exam GI & Abdominal Exam: Soft, Tenderness (lower abdomen), Normal Bowel Sounds - Neurological Exam Neurological Exam: Alert, Awake, Oriented x3 - Psychiatric Exam Psychiatric exam: Normal Mood - Skin Skin Exam: Intact Assessment and Plan - Assessment and Plan (Free Text) Assessment: Chronic ulcerative colitis GI Dr. Lemus consulted, help appreciated. FOBT positive. CT showed thickened colon. CRP >15. Continue Delzicol and Rowasa Enema. Stool leukocyte positive. C. diff negative. Colonoscopy scheduled on Sun as per Dr. Lemus. Peripheral neuropathy Continue home med Neurontin and Pamelor. Hypokalemia Likely secondary to diarrhea. Repleted. F/U CMP tomorrow. Prophylactic measure SCD, Protonix, Lovenox. Management as per Dr. Sheldon.
[2017-10-09 07:30] LABS: ALB/GLOB RATIO 1.4 (1.0-2.1); ALKALINE PHOSPHATASE 61 U/L (38-126); ALT/SGPT 66 U/L (9-52); AST/SGOT 47 U/L (14-36); BILIRUBIN,TOTAL 0.7 mg/dL (0.2-1.3); BLOOD UREA NITROGEN 3 mg/dL (7-17); CALCIUM 7.9 mg/dl (8.6-10.4); CARBON DIOXIDE 25 mmol/L (22-30); CHLORIDE 102 mmol/L (98-107); GFR AFRICAN-AMERICAN > 60; GLUCOSE,RANDOM 88 mg/dL (65-105); POTASSIUM 3.4 mmol/L (3.6-5.2); SODIUM 135 mmol/L (132-148); TOTAL PROTEIN 5.4 g/dL (6.3-8.3)
--- NOTE | 2017-10-09 07:37 | HP ---
HISTORY OF PRESENT ILLNESS: A 76-year-old female admitted to the hospital with chief complaint of abdominal pain, diarrhea, bleeding per rectum. The patient has a long history of ulcerative colitis, appears to be 5 years. The patient is followed by Dr. Lemus. PHYSICAL EXAMINATION: GENERAL: The patient is awake, alert, oriented. VITAL SIGNS: Temperature 98, pulse 90. HEENT: Within normal limits. NECK: Supple. CHEST: Symmetrical. HEART: Regular. ABDOMEN: Soft. EXTREMITIES: No edema. The patient given bedrest, supportive care. Valentin Sheldon MD
[2017-10-09] MEDS: Pantoprazole 40 mg EC Tab PO SCH (09:56)
[2017-10-09] MEDS ORDERED: Potassium Chloride 20 mEq ER Tab PO ONE (10:10)
[2017-10-09] MEDS ORDERED: Peg-Electrolyte Oral Soln 4L (Golytely) PO ONE (16:33)
--- NOTE | 2017-10-09 17:22 | CP.PCM.PN ---
Subjective - Date & Time of Evaluation Date of Evaluation: 10/09/17 Time of Evaluation: 17:20 - Subjective Subjective: Patient reports having frequent diarrhea still, every time she urinates. She denies having abdominal pain, nausea, vomiting. Objective - Vital Signs/Intake and Output Vital Signs (last 24 hours): Temp Pulse Resp BP Pulse Ox 97.8 F 60 20 145/64 97 10/09/17 15:05 10/09/17 15:05 10/09/17 15:05 10/09/17 15:05 10/09/17 15:05 Intake and Output: 10/09/17 10/09/17 06:59 18:59 Intake Total 600 Balance 600 - Medications Medications: Current Medications Gabapentin (Neurontin) 100 mg PO [facility] Last Admin: 10/08/17 21:50 Dose: 100 mg Piperacillin Sod/Tazobactam Sod (Zosyn 3.375 Gm Iv Premix) 3.375 gm in 50 mls @ 100 mls/hr IVPB Q6H [facility] Last Admin: 10/09/17 16:37 Dose: 100 mls/hr Potassium Chloride 20 meq/ (Dextrose/Sodium Chloride) 1,010 mls @ 80 mls/hr IV .[id number] [facility] Last Admin: 10/09/17 04:11 Dose: 80 mls/hr Mesalamine (Rowasa Enema) 4 gm RC [facility] Last Admin: 10/08/17 22:47 Dose: 4 gm Mesalamine (Delzicol) 800 mg PO TID [facility] Last Admin: 10/09/17 13:47 Dose: 800 mg Nortriptyline HCl (Pamelor) 25 mg PO BID [facility] Last Admin: 10/09/17 09:56 Dose: 25 mg Pantoprazole Sodium (Protonix Ec Tab) 40 mg PO DAILY [facility] Last Admin: 10/09/17 09:56 Dose: 40 mg - Labs Labs: 10/09/17 06:54 10/09/17 06:54 PT 12.0 SECONDS (9.7-12.2) 10/07/17 00:14 INR 1.1 10/07/17 00:14 APTT 26 SECONDS (21-34) 10/07/17 00:14 - Constitutional Appears: No Acute Distress - Head Exam Head Exam: ATRAUMATIC, NORMOCEPHALIC - Eye Exam Eye Exam: EOMI, PERRL - Neck Exam Neck Exam: absent: Lymphadenopathy, Thyromegaly - Respiratory Exam Respiratory Exam: NORMAL BREATHING PATTERN. absent: Rales, Rhonchi, Wheezes - Cardiovascular Exam Cardiovascular Exam: REGULAR RHYTHM, +S1, +S2. absent: Gallop, Rubs, Murmur - GI/Abdominal Exam GI & Abdominal Exam: Soft, Normal Bowel Sounds. absent: Tenderness, Mass, Organomegaly - Rectal Exam Rectal Exam: Deferred - Extremities Exam Extremities Exam: absent: Calf Tenderness, Pedal Edema Assessment and Plan (1) Ulcerative colitis, chronic Assessment & Plan: Stool analysis shows positive occult blood and fecal leukocytes, but negative C difficile toxin. Will schedule colonoscopy for tomorrow afternoon. Status: Chronic
[2017-10-10] MEDS: Piperacill/Tazo 3.375gm in Dex 3.375 GM/50 ML BAG IVPB SCH ×4 (03:29→22:08)
[2017-10-10 09:05] LABS: BASO % 0.7 % (0.0-2.0); EOS # 0.4 K/uL (0.0-0.7); EOS % 7.1 % (0.0-4.0); HEMATOCRIT 37.9 % (34.0-47.0); LYMPH # 2.1 K/uL (1.0-4.3); LYMPH % 41.6 % (20.0-40.0); MEAN CELL VOLUME 98.3 fL (81.0-99.0); MEAN CORPUSCULAR HEMOGLOBIN 32.4 pg (27.0-31.0); MEAN PLATELET VOLUME 8.9 fL (7.2-11.7); MONO # 0.5 K/uL (0.0-0.8); MONO % 10.3 % (0.0-10.0); NRBC % 0.1 % (0.0-2.0); RED CELL DISTRIBUTION WIDTH 12.7 % (11.5-14.5)
[2017-10-10] MEDS: Pantoprazole 40 mg EC Tab PO SCH (09:05)
[2017-10-10] MEDS ORDERED: Potassium Chloride 20 mEq ER Tab PO ONE (09:15)
[2017-10-10 09:20] LABS: ALKALINE PHOSPHATASE 65 U/L (38-126); ALT/SGPT 67 U/L (9-52); AST/SGOT 40 U/L (14-36); BILIRUBIN,TOTAL 0.8 mg/dL (0.2-1.3); BLOOD UREA NITROGEN 3 mg/dL (7-17); CALCIUM 8.3 mg/dl (8.6-10.4); CARBON DIOXIDE 26 mmol/L (22-30); CHLORIDE 101 mmol/L (98-107); GFR AFRICAN-AMERICAN > 60; GLUCOSE,RANDOM 87 mg/dL (65-105); POTASSIUM 3.9 mmol/L (3.6-5.2); SODIUM 137 mmol/L (132-148); TOTAL PROTEIN 6.1 g/dL (6.3-8.3)
[2017-10-10 09:21] LABS: ALB/GLOB RATIO 1.3 (1.0-2.1)
[2017-10-10 09:51] LABS: MAGNESIUM 1.6 mg/dL (1.6-2.3)
[2017-10-10] MEDS: Potassium Chloride 20 MEQ in Dextrose 5%/0.45% NS 1,000 ML IV SCH ×2 (11:12→15:35)
--- NOTE | 2017-10-10 14:54 | CP.PCM.PN ---
Subjective - Date & Time of Evaluation Date of Evaluation: 10/10/17 Time of Evaluation: 10:00 - Subjective Subjective: Dr. Sheldon note: Patient is seen and examined in room. She is about to go for colonoscopy with Dr. Lemus. She say she cam her reporting several episodes of somtimes bloody diarrhea. She currently denies fever, chills, nausea, vomiting. No recent weight loss either. Objective - Vital Signs/Intake and Output Vital Signs (last 24 hours): Temp Pulse Resp BP Pulse Ox 97.8 F 63 20 114/72 95 10/10/17 08:06 10/10/17 08:06 10/10/17 08:06 10/10/17 08:06 10/10/17 08:06 Intake and Output: 10/10/17 10/10/17 06:59 18:59 Intake Total 1500 800 Balance 1500 800 - Medications Medications: Current Medications Gabapentin (Neurontin) 100 mg PO HS [facility] Last Admin: 10/09/17 22:05 Dose: 100 mg Piperacillin Sod/Tazobactam Sod (Zosyn 3.375 Gm Iv Premix) 3.375 gm in 50 mls @ 100 mls/hr IVPB Q6H [facility] Last Admin: 10/10/17 09:06 Dose: 100 mls/hr Potassium Chloride 20 meq/ (Dextrose/Sodium Chloride) 1,010 mls @ 80 mls/hr IV .[id number] [facility] Last Admin: 10/10/17 11:12 Dose: 80 mls/hr Mesalamine (Rowasa Enema) 4 gm RC [facility] Last Admin: 10/09/17 22:04 Dose: 4 gm Mesalamine (Delzicol) 800 mg PO TID [facility] Last Admin: 10/10/17 13:14 Dose: Not Given Nortriptyline HCl (Pamelor) 25 mg PO BID [facility] Last Admin: 10/10/17 09:06 Dose: 25 mg Pantoprazole Sodium (Protonix Ec Tab) 40 mg PO DAILY [facility] Last Admin: 10/10/17 09:05 Dose: 40 mg - Labs Labs: 10/10/17 08:51 10/10/17 08:51 PT 12.0 SECONDS (9.7-12.2) 10/07/17 00:14 INR 1.1 10/07/17 00:14 APTT 26 SECONDS (21-34) 10/07/17 00:14 - Constitutional Appears: Non-toxic, No Acute Distress - Respiratory Exam Respiratory Exam: Clear to Ausculation Bilateral. absent: Rales, Rhonchi, Wheezes - Cardiovascular Exam Cardiovascular Exam: REGULAR RHYTHM, RRR, +S1, +S2. absent: Gallop, Rubs - GI/Abdominal Exam GI & Abdominal Exam: Soft, Tenderness, Normal Bowel Sounds. absent: Hyperactive Bowel Sounds - Extremities Exam Extremities Exam: Normal Inspection - Back Exam Back Exam: NORMAL INSPECTION Assessment and Plan - Assessment and Plan (Free Text) Assessment: Chronic ulcerative colitis 10/10: continue with oral Mesalamine and nightly enema with Rowasa as well. Follow up with Dr. Lemus on colonscopy results. GI Dr. Lemus consulted, help appreciated. FOBT positive. CT showed thickened colon. CRP >15. Continue Delzicol and Rowasa Enema. Stool leukocyte positive. C. diff negative. Colonoscopy scheduled on Sun as per Dr. Lemus. Peripheral neuropathy Continue home med Neurontin and Pamelor. Hypokalemia 10/10: replaced with 40 meq, follow up morning cmp Likely secondary to diarrhea. Repleted. F/U CMP tomorrow. Prophylactic measure SCD, Protonix, Lovenox. Management as per Dr. Sheldon.
[2017-10-10] MEDS ORDERED: Propofol 10 mg/ml Inj (20 ML) ONE (15:31)
[2017-10-10] MEDS ORDERED: Lactated Ringer's 500 ML IV ONE ×2 (16:00)
[2017-10-11] MEDS: Piperacill/Tazo 3.375gm in Dex 3.375 GM/50 ML BAG IVPB SCH ×4 (04:46→22:03)
[2017-10-11] MEDS: Potassium Chloride 20 MEQ in Dextrose 5%/0.45% NS 1,000 ML IV SCH ×3 (05:46→22:04)
[2017-10-11 08:28] LABS: ALB/GLOB RATIO 1.3 (1.0-2.1); ALKALINE PHOSPHATASE 59 U/L (38-126); ALT/SGPT 58 U/L (9-52); AST/SGOT 26 U/L (14-36); BILIRUBIN,TOTAL 0.8 mg/dL (0.2-1.3); BLOOD UREA NITROGEN 4 mg/dL (7-17); CALCIUM 8.4 mg/dl (8.6-10.4); CARBON DIOXIDE 27 mmol/L (22-30); CHLORIDE 101 mmol/L (98-107); GFR AFRICAN-AMERICAN > 60; GLUCOSE,RANDOM 76 mg/dL (65-105); MAGNESIUM 1.5 mg/dL (1.6-2.3); PHOSPHOROUS 4.3 mg/dL (2.5-4.5); POTASSIUM 3.8 mmol/L (3.6-5.2); SODIUM 139 mmol/L (132-148); TOTAL PROTEIN 5.8 g/dL (6.3-8.3)
[2017-10-11] MEDS: Pantoprazole 40 mg EC Tab PO SCH (10:37)
[2017-10-11] MEDS: Saccharomyces Boulardi 250 mg Cap PO SCH ×2 (14:08→18:24)
--- NOTE | 2017-10-11 15:06 | CP.PCM.PN ---
Subjective - Date & Time of Evaluation Date of Evaluation: 10/11/17 Time of Evaluation: 10:00 - Subjective Subjective: PGY3 on medicine Dr. Sheldon service: Pt seen and examined at bedside this morning. Pt reports having clear diarrhea still as well as weakness. No acute events overnight. Objective - Vital Signs/Intake and Output Vital Signs (last 24 hours): Temp Pulse Resp BP Pulse Ox 98.1 F 65 20 107/56 L 97 10/11/17 08:00 10/11/17 08:00 10/11/17 08:00 10/11/17 08:00 10/11/17 08:00 Intake and Output: 10/11/17 10/11/17 06:59 18:59 Intake Total 800 450 Balance 800 450 - Medications Medications: Current Medications Gabapentin (Neurontin) [address] [facility] Last Admin: 10/10/17 22:07 Dose: 100 mg Piperacillin Sod/Tazobactam Sod (Zosyn 3.375 Gm Iv Premix) 3.375 gm in 50 mls @ 100 mls/hr IVPB Q6H [facility] Last Admin: 10/11/17 10:38 Dose: 100 mls/hr Potassium Chloride 20 meq/ (Dextrose/Sodium Chloride) 1,010 mls @ 80 mls/hr IV .[id number] [facility] Last Admin: 10/11/17 05:46 Dose: 80 mls/hr Mesalamine (Rowasa Enema) [address] [facility] Last Admin: 10/10/17 22:07 Dose: 4 gm Mesalamine (Delzicol) 800 mg PO TID [facility] Last Admin: 10/11/17 14:04 Dose: 800 mg Nortriptyline HCl (Pamelor) 25 mg PO BID [facility] Last Admin: 10/11/17 10:37 Dose: 25 mg Pantoprazole Sodium (Protonix Ec Tab) 40 mg PO DAILY [facility] Last Admin: 10/11/17 10:37 Dose: 40 mg Saccharomyces Boulardii (Florastor) 250 mg PO TID [facility] Last Admin: 10/11/17 14:08 Dose: 250 mg - Labs Labs: 10/10/17 08:51 10/11/17 06:49 PT 12.0 SECONDS (9.7-12.2) 10/07/17 00:14 INR 1.1 10/07/17 00:14 APTT 26 SECONDS (21-34) 10/07/17 00:14 - Constitutional Appears: Non-toxic, No Acute Distress - Head Exam Head Exam: NORMOCEPHALIC - Eye Exam Eye Exam: Normal appearance Pupil Exam: NORMAL ACCOMODATION - Respiratory Exam Respiratory Exam: Clear to Ausculation Bilateral, NORMAL BREATHING PATTERN. absent: Wheezes - Cardiovascular Exam Cardiovascular Exam: REGULAR RHYTHM, +S1, +S2. absent: Gallop, Rubs - GI/Abdominal Exam GI & Abdominal Exam: Soft, Normal Bowel Sounds - Neurological Exam Neurological Exam: Alert, Awake, Oriented x3 - Psychiatric Exam Psychiatric exam: Normal Mood Assessment and Plan - Assessment and Plan (Free Text) Assessment: Chronic ulcerative colitis 10/11: C.diff antigen and toxin studies negative. Giardia antigen negative. Colonoscopy showed erythematous mucosa and 3mm polyp at distal sigmoid colon. Per Dr. Lemus, pt can start Imodium and Florastor. 10/10: continue with oral Mesalamine and nightly enema with Rowasa as well. Follow up with Dr. Lemus on colonscopy results. GI Dr. Lemus consulted, help appreciated. FOBT positive. CT showed thickened colon. CRP >15. Continue Delzicol and Rowasa Enema. Stool leukocyte positive. C. diff negative. Colonoscopy scheduled on Sun as per Dr. Lemus. Peripheral neuropathy Continue home med Neurontin and Pamelor. Hypokalemia 10/10: replaced with 40 meq, follow up morning cmp Likely secondary to diarrhea. Repleted. Prophylactic measure SCD, Protonix, Lovenox. Management as per Dr. Sheldon.
[2017-10-12] MEDS: Piperacill/Tazo 3.375gm in Dex 3.375 GM/50 ML BAG IVPB SCH ×4 (04:37→21:38)
[2017-10-12 08:24] LABS: BASO % 0.9 % (0.0-2.0); EOS # 0.4 K/uL (0.0-0.7); EOS % 7.7 % (0.0-4.0); HEMATOCRIT 39.9 % (34.0-47.0); LYMPH # 1.7 K/uL (1.0-4.3); LYMPH % 34.7 % (20.0-40.0); MEAN CELL VOLUME 98.7 fL (81.0-99.0); MEAN CORPUSCULAR HEMOGLOBIN 33.1 pg (27.0-31.0); MEAN CORPUSCULAR HGB CONC 33.5 g/dL (33.0-37.0); MEAN PLATELET VOLUME 8.6 fL (7.2-11.7); MONO # 0.6 K/uL (0.0-0.8); NRBC % 0.1 % (0.0-2.0); RED CELL DISTRIBUTION WIDTH 13.1 % (11.5-14.5)
[2017-10-12 08:34] LABS: BLOOD UREA NITROGEN 4 mg/dL (7-17); CALCIUM 8.3 mg/dl (8.6-10.4); CARBON DIOXIDE 27 mmol/L (22-30); CHLORIDE 105 mmol/L (98-107); GFR AFRICAN-AMERICAN > 60; GLUCOSE,RANDOM 99 mg/dL (65-105); POTASSIUM 3.8 mmol/L (3.6-5.2); SODIUM 139 mmol/L (132-148)
--- NOTE | 2017-10-12 09:06 | CP.PCM.PN ---
Subjective - Date & Time of Evaluation Date of Evaluation: 10/12/17 Time of Evaluation: 10:00 - Subjective Subjective: Dr. Sheldon note: Patient is seen in room. She says she had 3 episodes of diarrhea since yesterday. She says she feels weak but does not want to go to rehab. Agreed for discharge tomorrow morning with home PT. Advised patient to take Imodium as needed for diarrhea. Objective - Vital Signs/Intake and Output Vital Signs (last 24 hours): Temp Pulse Resp BP Pulse Ox 97.8 F 64 18 97/57 L 97 10/12/17 07:00 10/12/17 07:00 10/12/17 07:00 10/12/17 07:00 10/12/17 07:00 Intake and Output: 10/12/17 10/12/17 06:59 18:59 Intake Total 750 800 Balance 750 800 - Medications Medications: Current Medications Gabapentin (Neurontin) 100 mg PO [facility] Last Admin: 10/11/17 22:04 Dose: 100 mg Piperacillin Sod/Tazobactam Sod (Zosyn 3.375 Gm Iv Premix) 3.375 gm in 50 mls @ 100 mls/hr IVPB Q6H [facility] Last Admin: 10/12/17 04:37 Dose: 100 mls/hr Potassium Chloride 20 meq/ (Dextrose/Sodium Chloride) 1,010 mls @ 80 mls/hr IV .[id number] [facility] Last Admin: 10/11/17 22:04 Dose: 80 mls/hr Loperamide HCl (Imodium) 2 mg PO ONCE PRN PRN Reason: diarrhea Mesalamine (Rowasa Enema) 4 gm [facility] Last Admin: 10/11/17 22:04 Dose: 4 gm Mesalamine (Delzicol) 800 mg PO TID [facility] Last Admin: 10/11/17 18:24 Dose: 800 mg Nortriptyline HCl (Pamelor) 25 mg PO BID [facility] Last Admin: 10/11/17 18:24 Dose: 25 mg Pantoprazole Sodium (Protonix Ec Tab) 40 mg PO DAILY [facility] Last Admin: 10/11/17 10:37 Dose: 40 mg Saccharomyces Boulardii (Florastor) 250 mg PO TID [facility] Last Admin: 10/11/17 18:24 Dose: 250 mg Zolpidem Tartrate (Ambien) 5 mg PO HS PRN PRN Reason: Insomnia Last Admin: 10/11/17 22:04 Dose: 5 mg - Labs Labs: 10/12/17 08:07 10/12/17 08:07 PT 12.0 SECONDS (9.7-12.2) 10/07/17 00:14 INR 1.1 10/07/17 00:14 APTT 26 SECONDS (21-34) 10/07/17 00:14 - Constitutional Appears: Non-toxic, No Acute Distress - Eye Exam Eye Exam: Normal appearance Pupil Exam: NORMAL ACCOMODATION - Respiratory Exam Respiratory Exam: Clear to Ausculation Bilateral. absent: Rales, Rhonchi, Wheezes - Cardiovascular Exam Cardiovascular Exam: REGULAR RHYTHM, RRR, +S1, +S2. absent: Gallop, Rubs - GI/Abdominal Exam GI & Abdominal Exam: Soft, Normal Bowel Sounds. absent: Tenderness - Extremities Exam Extremities Exam: Normal Inspection. absent: Pedal Edema - Psychiatric Exam Psychiatric exam: Normal Affect, Normal Mood Assessment and Plan - Assessment and Plan (Free Text) Assessment: Chronic ulcerative colitis 10/12: Patient will be discharged tomorrow at 7 am. Scripts are in the chart, she will also have rolling walker as well. And will need home health with home physical therapy. She has refused any NAHID discharge for now. 10/11: C.diff antigen and toxin studies negative. Giardia antigen negative. Colonoscopy showed erythematous mucosa and 3mm polyp at distal sigmoid colon. Per Dr. Lemus, pt can start Imodium and Florastor. 10/10: continue with oral Mesalamine and nightly enema with Rowasa as well. Follow up with Dr. Lemus on colonscopy results. GI Dr. Lemus consulted, help appreciated. FOBT positive. CT showed thickened colon. CRP >15. Continue Delzicol and Rowasa Enema. Stool leukocyte positive. C. diff negative. Colonoscopy scheduled on Sun as per Dr. Lemus. Peripheral neuropathy Continue home med Neurontin and Pamelor. Hypokalemia 10/10: replaced with 40 meq, follow up morning cmp Likely secondary to diarrhea. Repleted. Prophylactic measure SCD, Protonix, Lovenox. Management as per Dr. Sheldon.
[2017-10-12] MEDS: Pantoprazole 40 mg EC Tab PO SCH (10:00)
[2017-10-12] MEDS: Saccharomyces Boulardi 250 mg Cap PO SCH ×3 (10:01→17:36)
[2017-10-12] MEDS: Potassium Chloride 20 MEQ in Dextrose 5%/0.45% NS 1,000 ML IV SCH (16:27)
[2017-10-13] MEDS: Piperacill/Tazo 3.375gm in Dex 3.375 GM/50 ML BAG IVPB SCH ×2 (04:21→10:15)
[2017-10-13 08:12] VITALS: BP 100/68; PULSE 70; RESP 18; TEMP 97.6; O2SAT 96
[2017-10-13] MEDS: Pantoprazole 40 mg EC Tab PO SCH (10:14)
[2017-10-13] MEDS: Saccharomyces Boulardi 250 mg Cap PO SCH (10:14)
== END 2017-10-13 11:53 | disposition home or self-care (01) | DRG 387 ==
LOC: C.ER 23:21 → C.9E 10-07 04:22 → C.5S 10-07 05:33 → C.6T 10-12 22:44
PROVIDERS: ADMIT Internal Medicine Pulmonary Disease; ATTEND Internal Medicine Pulmonary Disease
PROC: 0DBN8ZX Excision of Sigmoid Colon, Via Natural or Artificial Opening Endoscopic, Diagnostic (ICD-10-PCS; 2017-10-10)
PROC: 0DBP8ZX Excision of Rectum, Via Natural or Artificial Opening Endoscopic, Diagnostic (ICD-10-PCS; principal; 2017-10-10 15:57)
DX: K51.20 Ulcerative (chronic) proctitis without complications (principal); D12.5 Benign neoplasm of sigmoid colon; E87.6 Hypokalemia; G62.9 Polyneuropathy, unspecified; Z87.442 Personal history of urinary calculi; Z87.891 Personal history of nicotine dependence

== ENCOUNTER 2018-01-28 12:23 | Inpatient (IN) | payer MEDICARE, BC ==
[2018-01-28 12:23] VITALS: BMI 23.6
[2018-01-28] MEDS ORDERED: Sodium Chloride 0.9% 500 ML IV ONE (13:11)
[2018-01-28] MEDS ORDERED: Sodium Chloride 0.9% 1,000 ML ONE (13:21)
[2018-01-28 13:26] LABS: BASO % 0.5 % (0.0-2.0); EOS # 0.1 K/uL (0.0-0.7); EOS % 1.5 % (0.0-4.0); HEMOGLOBIN 12.6 g/dL (11.0-16.0); LYMPH % 12.1 % (20.0-40.0); MEAN CELL VOLUME 97.4 fL (81.0-99.0); MEAN CORPUSCULAR HEMOGLOBIN 33.2 pg (27.0-31.0); MEAN CORPUSCULAR HGB CONC 34.1 g/dL (33.0-37.0); MEAN PLATELET VOLUME 9.1 fL (7.2-11.7); MONO # 0.8 K/uL (0.0-0.8); NEUT # 6.2 K/uL (1.8-7.0); NEUT % 75.9 % (50.0-75.0); RBC 3.78 Mil/uL (3.80-5.20); RED CELL DISTRIBUTION WIDTH 12.9 % (11.5-14.5)
--- NOTE | 2018-01-28 13:30 | RAD ---
PROCEDURE: CHEST RADIOGRAPH, 1 VIEW HISTORY: Abdominal pain COMPARISON: 07/27/2015. FINDINGS: LUNGS: The lungs are clear. PLEURA: No pneumothorax or pleural fluid seen. CARDIOVASCULAR: Normal. OSSEOUS STRUCTURES: No significant abnormalities. VISUALIZED UPPER ABDOMEN: Normal. OTHER FINDINGS: None. IMPRESSION: No active pulmonary disease.
[2018-01-28 13:32] LABS: WHITE BLOOD COUNT 8.1 K/uL (4.8-10.8)
[2018-01-28 13:34] LABS: PROTHROMBIN TIME 11.1 SECONDS (9.7-12.2)
[2018-01-28 13:41] LABS: ALB/GLOB RATIO 1.1 (1.0-2.1); ALBUMIN 4.3 g/dL (3.5-5.0); ALT/SGPT 45 U/L (9-52); AST/SGOT 50 U/L (14-36); BLOOD UREA NITROGEN 14 mg/dL (7-17); CALCIUM 8.9 mg/dl (8.6-10.4); GFR AFRICAN-AMERICAN > 60; GFR NON-AFRICAN AMERICAN > 60; LIPASE 42 U/L (23-300)
--- NOTE | 2018-01-28 15:02 | C.PDOC ---
History Of Present Illness 77 y/o female presents to the ED with mild epigastric discomfort, and complaint of blood-tinged loose stools since last night. Reports past medical history of chronic colitis and c diff. No nausea, vomiting, fevers, or chills. PMD: Keny Zamora Time Seen by Provider: 01/28/18 12:52 Chief Complaint (Nursing): GI Problem History Per: Patient History/Exam Limitations: no limitations Onset/Duration Of Symptoms: Days (x2) Current Symptoms Are (Timing): Still Present Location Of Pain/Discomfort: Epigastric Radiation Of Pain To:: None Associated Symptoms: Diarrhea Past Medical History Reviewed: Historical Data, Nursing Documentation, Vital Signs Vital Signs: Last Vital Signs Temp 98.3 F 02/03/18 08:08 Pulse 84 02/03/18 08:08 Resp 20 02/03/18 08:08 BP 146/76 02/03/18 08:08 Pulse Ox 98 02/03/18 08:15 - Medical History PMH: Kidney Stones Denies: Crohn's Disease, Depression, Diverticulitis, Gastritis, Gall Bladder Disease, HIV, Pancreatitis Other PMH: Chronic colitis, C diff - [facility] Procedures CATARAC PHACOEMULS/ASPIR (09/11/13) CLOSED ENDOSCOPIC BIOPSY OF LARGE INTESTINE (02/11/14) CYSTOSCOPY NEC (11/27/06) ESOPHAGOGASTRODUODENOSCOPY [EGD] W/CLOSED BIOPSY (03/01/04) EXCISION OF RECTUM, ENDO, DIAGN (10/07/17) EXCISION OF SIGMOID COLON, ENDO, DIAGN (10/07/17) FLEXIBLE SIGMOIDOSCOPY (03/26/03) INJECT/INFUSE NEC (03/16/06) INSERT LENS AT CATAR EXT (09/11/13) MAGNETIC RESONANCE IMAGING OF SPINAL CANAL (11/28/06) REMOV URETERAL DRAIN (11/27/06) RETROGRADE PYELOGRAM (07/07/14) URETERAL CATHETERIZATION (07/07/14) Family History: States: Unknown Family Hx - Social History Hx Tobacco Use: No Hx Alcohol Use: No Hx Substance Use: No - Immunization History Hx Tetanus Toxoid Vaccination: Yes Review Of Systems Except As Marked, All Systems Reviewed And Found Negative. Constitutional: Negative for: Fever, Chills Cardiovascular: Negative for: Chest Pain Respiratory: Negative for: Shortness of Breath Gastrointestinal: Positive for: Abdominal Pain, Diarrhea. Negative for: Nausea , Vomiting Physical Exam - Physical Exam Appears: No Acute Distress, Other (Elderly white female) Skin: Normal Color, Warm, Dry Head: Atraumatic, Normacephalic Eye(s): bilateral: Normal Inspection, PERRL, EOMI Ear(s): Bilateral: Normal Nose: Normal Neck: Normal ROM, Supple Chest: Symmetrical Cardiovascular: Rhythm Regular, No Murmur Respiratory: Normal Breath Sounds, No Rales, No Rhonchi, No Wheezing Gastrointestinal/Abdominal: Bowel Sounds (active), Soft, No Tenderness, No Guarding, No Rebound Extremity: Bilateral: Atraumatic, Normal Color And Temperature, Normal ROM Pulses: Left Dorsalis Pedis: Normal, Right Dorsalis Pedis: Normal Neurological/Psych: Oriented x3, Normal Speech ED Course And Treatment - Laboratory Results Result Diagrams: 02/01/18 08:03 02/02/18 12:43 Lab Interpretation: Normal ECG: Interpreted By Nm ECG Rhythm: Sinus Rhythm ECG Interpretation: Normal O2 Sat by Pulse Oximetry: 98 (RA) Pulse Ox Interpretation: Normal - Radiology CXR: Interpreted by Nm CXR Interpretation: Yes: No Acute Disease Reevaluation Time: 15:03 Reassessment Condition: Improved - Physician Consult Information Outcome Of Conversation: 1330: d/w Dr. Trevino, as referred MD, advises pt h/o c -diff may be suffering a recurrence and suggests c-dif toxin but defer repeat CT ABd, last CT ABd/Pelvis 10/08/17 unremarkable. 1500: d/w Dr. Francois- admitting MD- ok to admit to isolation for presumed C-diff. Medical Decision Making Medical Decision Making: Impression: c-diff vs chronic colitis Time: 13:11 Initial Plan: --Lipase --CMP --CBC --PTT --PT --Urinalysis --C Diff Toxin A,B --Chest x-ray --IV fluids --Toradol 15 mg IVP --Reevaluation Labs reviewed: normal wbc's argues against severe colitis. Dr. Trevino defers CT and this MD agrees, belly benign and no sig leukocytosis, ok to defer. consider inpatient colonoscopy/other direct viewing modality HOLD c-diff meds until dx made but isolate by precaution. 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 MD/ has examined the patient and agrees with the treatment plan. - Scribe Statement The provider has reviewed the documentation as recorded by the Victor Manuel Alvarado Provider Attestation: All medical record entries made by the Victor Manuel were at my direction and personally dictated by me. I have reviewed the chart and agree that the record accurately reflects my personal performance of the history, physical exam, medical decision making, and the department course for this patient. I have also personally directed, reviewed, and agree with the discharge instructions and disposition. Decision To Admit - Pt Status Changed To: Hospital Disposition Of: Inpatient - Admit Certification Admit to Inpatient:: After my assessment, the patient will require hospitalization for at least two midnights. This is because of the severity of symptoms shown, intensity of services needed, and/or the medical risk in this patient being treated as an outpatient. - InPatient: Physician Admission Certification:: admit to [facility] - . Bed Request Type: Regular Patient Diagnosis: Bloody diarrhea
[2018-01-28 15:43] LABS: SQUAMOUS EPITHIAL < 1 /hpf (0-5); URINE BILIRUBIN NEGATIVE (NEGATIVE); URINE BLOOD NEGATIVE (NEGATIVE); URINE CLARITY Clear (Clear); URINE COLOR Yellow (YELLOW); URINE GLUCOSE (UA) NORMAL (Normal); URINE LEUKOCYTE ESTERASE NEG Leu/uL (Negative); URINE PROTEIN NEGATIVE (NEGATIVE); URINE UROBILINOGEN NORMAL mg/dL (0.2-1.0)
[2018-01-28] MEDS: Dextrose 5%/0.45% NS 1,000 ML IV SCH (18:22)
[2018-01-28] MEDS: metroNIDAZOLE IV 500 mg/100 ml 500 MG/100 ML BAG IVPB SCH (21:37)
[2018-01-29] MEDS: Dextrose 5%/0.45% NS 1,000 ML IV SCH (04:03)
[2018-01-29] MEDS: metroNIDAZOLE IV 500 mg/100 ml 500 MG/100 ML BAG IVPB SCH ×3 (05:40→21:05)
[2018-01-29 07:49] LABS: BASO % 0.3 % (0.0-2.0); EOS # 0.1 K/uL (0.0-0.7); EOS % 0.8 % (0.0-4.0); HEMOGLOBIN 11.8 g/dL (11.0-16.0); LYMPH # 1.3 K/uL (1.0-4.3); LYMPH % 12.5 % (20.0-40.0); MEAN CELL VOLUME 96.7 fL (81.0-99.0); MEAN CORPUSCULAR HEMOGLOBIN 33.2 pg (27.0-31.0); MEAN CORPUSCULAR HGB CONC 34.3 g/dL (33.0-37.0); MEAN PLATELET VOLUME 9.1 fL (7.2-11.7); MONO % 9.7 % (0.0-10.0); NEUT # 8.2 K/uL (1.8-7.0); NEUT % 76.7 % (50.0-75.0); NRBC % 0.1 % (0.0-2.0); RBC 3.55 Mil/uL (3.80-5.20); RED CELL DISTRIBUTION WIDTH 12.8 % (11.5-14.5); WHITE BLOOD COUNT 10.7 K/uL (4.8-10.8)
[2018-01-29 08:00] LABS: ALB/GLOB RATIO 1.1 (1.0-2.1); ALBUMIN 3.5 g/dL (3.5-5.0); ALT/SGPT 75 U/L (9-52); AST/SGOT 129 U/L (14-36); BLOOD UREA NITROGEN 9 mg/dL (7-17); CALCIUM 8.2 mg/dl (8.6-10.4); GFR AFRICAN-AMERICAN > 60; GFR NON-AFRICAN AMERICAN > 60
[2018-01-29] MEDS ORDERED: Potassium Chloride 20 mEq ER Tab PO ONE (09:47)
[2018-01-29] MEDS: Potassium Chloride 20 MEQ in Dextrose 5%/0.45% NS 1,000 ML IV SCH ×2 (11:07→19:08)
--- NOTE | 2018-01-29 11:12 | CP.PCM.CON ---
History of Present Illness - History of Present Illness History of Present Illness: This is a 77 year old woman with diarrhea and rectal bleeding. Patient has a history of ulcerative colitis for more than ten years, involving primarily the left side of the colon, maintained on Lialda and Rowasa. She was hospitalized for diarrhea in September,, but colonoscopy 10/10/2017 showed no endoscopic or pathologic evidence of active colitis. A small adenomatous polyp was found incidentally. Patient was seen in the office in early December, at which time she was having ten loose bowel movements a day. A C difficile toxin gene CARLENE assay 12/20/2017 came back positive, and vancomycin was started. After the vancomycin, the frequency of the bowel movements improved to two or three times a day, and the fecal calprotectin declined from 164 to 115. Patient is readmitted with a two day history of frequent diarrhea with bleeding. She states that she has bowel movements almost every hour, preceded by mild cramping pain in the lower abdomen, and accompanied by bleeding most of the time. She has been nauseated but denies having vomiting, heartburn or difficulty swallowing. She has a good appetite, but is reluctant to eat. Review of Systems - Review of Systems All systems: reviewed and no additional remarkable complaints except - Constitutional Constitutional: absent: Chills, Fever - Cardiovascular Cardiovascular: absent: Chest Pain - Respiratory Respiratory: absent: Dyspnea - Gastrointestinal Gastrointestinal: Abdominal Pain, Cramping, Diarrhea, Hematochezia, Nausea. absent: Constipation, Dysphagia, Heartburn, Vomiting Past Patient History - Infectious Disease Hx of Infectious Diseases: None - Tetanus Immunizations Tetanus Immunization: Unknown - Past Medical History & Family History Past Medical History?: Yes - Past Social History Smoking Status: Former Smoker - CARDIAC Hx Cardiac Disorders: No - PULMONARY Hx Respiratory Disorders: No - NEUROLOGICAL Hx Neurological Disorder: No - HEENT Hx HEENT Problems: No - RENAL Hx Chronic Kidney Disease: Yes Hx Kidney Stones: Yes - ENDOCRINE/METABOLIC Hx Endocrine Disorders: No - HEMATOLOGICAL/ONCOLOGICAL Hx Blood Disorders: No Hx Human Immunodeficiency Virus (HIV): No - INTEGUMENTARY Hx Dermatological Problems: No - MUSCULOSKELETAL/RHEUMATOLOGICAL Hx Falls: Yes - GASTROINTESTINAL Hx Colitis: Yes Hx Crohn's Disease: No Hx Diverticulitis: No Hx Gall Bladder Disease: No Hx Gastritis: No Hx Pancreatitis: No - GENITOURINARY/GYNECOLOGICAL Hx Genitourinary Disorders: (Kidney stones last 2013) - PSYCHIATRIC Hx Psychophysiologic Disorder: No Hx Depression: No Hx Substance Use: No - SURGICAL HISTORY Hx Surgeries: Yes Hx Section: Yes - ANESTHESIA Hx Anesthesia: Yes Hx Anesthesia Reactions: No Hx Malignant Hyperthermia: No Has any member of the family had a problem w/ anesthesia?: No Meds Allergies/Adverse Reactions: Allergies Allergy/AdvReac Type Severity Reaction Status Date / Time No Known Allergies Allergy Verified 02/22/17 13:09 - Medications Medications: Current Medications Acetaminophen (Tylenol 325mg Tab) 650 mg PO Q6 PRN PRN Reason: Fever >100.4 F Acetaminophen (Tylenol 325mg Tab) 650 mg PO Q6 PRN PRN Reason: Pain, Mild (1-3) Gabapentin (Neurontin) 100 mg PO HS [facility] Metronidazole (Flagyl) 500 mg in 100 mls @ 100 mls/hr IVPB Q8 [facility] PRN Reason: Protocol Last Admin: 01/29/18 05:40 Dose: 100 mls/hr Potassium Chloride 20 meq/ (Dextrose/Sodium Chloride) 1,010 mls @ 100 mls/hr IV .[id number] [facility] Nortriptyline HCl (Pamelor) 25 mg PO BID [facility] Pantoprazole Sodium (Protonix Inj) 40 mg IVP DAILY [facility] Physical Exam - Constitutional Appears: No Acute Distress - Head Exam Head Exam: ATRAUMATIC, NORMOCEPHALIC - Eye Exam Eye Exam: EOMI, PERRL - Neck Exam Neck exam: Negative for: Lymphadenopathy, Thyromegaly - Respiratory Exam Respiratory Exam: NORMAL BREATHING PATTERN. absent: Rales, Rhonchi, Wheezes - Cardiovascular Exam Cardiovascular Exam: REGULAR RHYTHM, +S1, +S2. absent: Gallop, Rubs, Systolic Murmur - GI/Abdominal Exam GI & Abdominal Exam: Distended, Normal Bowel Sounds, Soft. absent: Mass, Tenderness - Rectal Exam Rectal Exam: Deferred - Extremities Exam Extremities exam: Negative for: calf tenderness, pedal edema Results - Vital Signs Recent Vital Signs: Last Vital Signs Temp 99.3 F 01/29/18 07:30 Pulse 90 01/29/18 07:30 Resp 18 01/29/18 07:30 BP 126/62 01/29/18 07:30 Pulse Ox 96 01/29/18 07:30 - Labs Result Diagrams: 01/29/18 07:01/29/18 07:19 Labs: Laboratory Results - last 24 hr 01/28/18 01/28/18 01/28/18 13:21 13:21 13:21 WBC 8.1 D RBC 3.78 L Hgb 12.6 Hct 36.8 MCV 97.4 MCH 33.2 H MCHC 34.1 RDW 12.9 Plt Count 206 MPV 9.1 Neut % (Auto) 75.9 H Lymph % (Auto) 12.1 L Sanders % (Auto) 10.0 Eos % (Auto) 1.5 Baso % (Auto) 0.5 Neut # (Auto) 6.2 Lymph # (Auto) 1.0 Sanders # (Auto) 0.8 Eos # (Auto) 0.1 Baso # (Auto) 0.0 PT 11.1 INR 1.0 APTT 27 Sodium 136 Potassium 3.3 L Chloride 96 L Carbon Dioxide 26 Anion Gap 17 BUN 14 Creatinine 0.6 L Est GFR ( Amer) > 60 Est GFR (Non-Af Amer) > 60 Random Glucose 88 Calcium 8.9 Total Bilirubin 0.8 AST 50 H D ALT 45 Alkaline Phosphatase 128 H D Total Protein 8.0 Albumin 4.3 Globulin 3.7 Albumin/Globulin Ratio 1.1 Lipase 42 Urine Color Urine Clarity Urine pH Ur Specific [place] Urine Protein Urine Glucose (UA) Urine Ketones Urine Blood Urine Nitrate Urine Bilirubin Urine Urobilinogen Ur Leukocyte Esterase Urine WBC (Auto) Urine RBC (Auto) Ur Squamous Epith Cells Stool Occult Blood 01/28/18 01/29/18 01/29/18 15:32 07:19 07:19 WBC 10.7 RBC 3.55 L Hgb 11.8 Hct 34.4 MCV 96.7 MCH 33.2 H MCHC 34.3 RDW 12.8 Plt Count 183 MPV 9.1 Neut % (Auto) 76.7 H Lymph % (Auto) 12.5 L Sanders % (Auto) 9.7 Eos % (Auto) 0.8 Baso % (Auto) 0.3 Neut # (Auto) 8.2 H Lymph # (Auto) 1.3 Sanders # (Auto) 1.0 H Eos # (Auto) 0.1 Baso # (Auto) 0.0 PT INR APTT Sodium 134 Potassium 3.2 L Chloride 99 Carbon Dioxide 25 Anion Gap 13 BUN 9 Creatinine 0.5 L Est GFR ( Amer) > 60 Est GFR (Non-Af Amer) > 60 Random Glucose 102 Calcium 8.2 L Total Bilirubin 0.6 AST 129 H D ALT 75 H D Alkaline Phosphatase 128 H Total Protein 6.7 Albumin 3.5 Globulin 3.2 Albumin/Globulin Ratio 1.1 Lipase Urine Color Yellow Urine Clarity Clear Urine pH 5.0 Ur Specific [place] 1.018 Urine Protein Negative Urine Glucose (UA) Normal Urine Ketones Negative Urine Blood Negative Urine Nitrate Negative Urine Bilirubin Negative Urine Urobilinogen Normal Ur Leukocyte Esterase Neg Urine WBC (Auto) 1 Urine RBC (Auto) < 1 Ur Squamous Epith Cells < 1 Stool Occult Blood 01/29/18 08:30 WBC RBC Hgb Hct MCV MCH MCHC RDW Plt Count MPV Neut % (Auto) Lymph % (Auto) Sanders % (Auto) Eos % (Auto) Baso % (Auto) Neut # (Auto) Lymph # (Auto) Sanders # (Auto) Eos # (Auto) Baso # (Auto) PT INR APTT Sodium Potassium Chloride Carbon Dioxide Anion Gap BUN Creatinine Est GFR ( Amer) Est GFR (Non-Af Amer) Random Glucose Calcium Total Bilirubin AST ALT Alkaline Phosphatase Total Protein Albumin Globulin Albumin/Globulin Ratio Lipase Urine Color Urine Clarity Urine pH Ur Specific [place] Urine Protein Urine Glucose (UA) Urine Ketones Urine Blood Urine Nitrate Urine Bilirubin Urine Urobilinogen Ur Leukocyte Esterase Urine WBC (Auto) Urine RBC (Auto) Ur Squamous Epith Cells Stool Occult Blood Negative Assessment & Plan (1) Bloody diarrhea Assessment and Plan: Patient with history of ulcerative colitis, S/P course of vancomycin for C difficile infection one month ago, now with bloody diarrhea. The most likely explanation is exacerbation of UC caused by recurrent C difficile infection. Will check stool studies, start vancomycin emprirically. Consider repeat colonoscopy. Status: Acute
--- NOTE | 2018-01-29 11:46 | CP.PCM.PN ---
Subjective - Date & Time of Evaluation Date of Evaluation: 01/29/18 Time of Evaluation: 09:20 - Subjective Subjective: Medicine progress note for Dr. Sheldon Patient is a 77 year old female with history of UC since 1962 who presents with complaint of intractable watery and bloody diarrhea. Patient states she does not want to get up from commode due to constant watery diarrhea. Patient is hesitant to eat as every liquid causes her diarrhea. She states diarrhea began on and has not improved. She reports compliance with her home medications and follows regularly with Dr. Lemus. Patient was hospitalized at [facility] [place] in 09/2017 and denies other hospitalizations since. She has history of C. Diff colitis as well, treated as outpatient in 12/2017. Home meds: mesalamine, pamelor 25mg PO BID, gabapentin 100mg PO HS PMD: Dr. Zamora Objective - Vital Signs/Intake and Output Vital Signs (last 24 hours): Temp Pulse Resp BP Pulse Ox 99.3 F 90 18 126/62 96 01/29/18 07:30 01/29/18 07:30 01/29/18 07:30 01/29/18 07:30 01/29/18 07:30 Intake and Output: 01/29/18 01/29/18 06:59 18:59 Intake Total 800 Balance 800 - Medications Medications: Current Medications Acetaminophen (Tylenol 325mg Tab) 650 mg PO Q6 PRN PRN Reason: Fever >100.4 F Acetaminophen (Tylenol 325mg Tab) 650 mg PO Q6 PRN PRN Reason: Pain, Mild (1-3) Gabapentin (Neurontin) 100 mg PO [facility] Hydrocortisone Sodium Succinate (Solu-Cortef) 100 mg IV Q8H [facility] Metronidazole (Flagyl) 500 mg in 100 mls @ 100 mls/hr IVPB Q8 [facility] PRN Reason: Protocol Last Admin: 01/29/18 05:40 Dose: 100 mls/hr Potassium Chloride 20 meq/ (Dextrose/Sodium Chloride) 1,010 mls @ 100 mls/hr IV .Q10H6M [facility] Last Admin: 01/29/18 11:07 Dose: 100 mls/hr Mesalamine (Delzicol Dr) 1,600 mg PO TID [facility] Nortriptyline HCl (Pamelor) 25 mg PO BID [facility] Last Admin: 01/29/18 11:07 Dose: 25 mg Pantoprazole Sodium (Protonix Inj) 40 mg IVP DAILY [facility] Last Admin: 01/29/18 11:07 Dose: 40 mg Vancomycin HCl (Vancocin (Oral Or Rectal Use)) 125 mg PO Q6H [facility] PRN Reason: Protocol - Labs Labs: 01/29/18 07:19 01/29/18 07:19 PT 11.1 SECONDS (9.7-12.2) 01/28/18 13:21 INR 1.0 01/28/18 13:21 APTT 27 SECONDS (21-34) 01/28/18 13:21 - Constitutional Appears: No Acute Distress - Head Exam Head Exam: ATRAUMATIC, NORMOCEPHALIC - Eye Exam Eye Exam: EOMI - ENT Exam ENT Exam: Mucous Membranes Moist - Respiratory Exam Respiratory Exam: Clear to Ausculation Bilateral - Cardiovascular Exam Cardiovascular Exam: +S1, +S2 - GI/Abdominal Exam GI & Abdominal Exam: Soft, Normal Bowel Sounds. absent: Tenderness - Extremities Exam Extremities Exam: Normal Inspection - Neurological Exam Neurological Exam: Alert, Awake - Psychiatric Exam Psychiatric exam: Normal Affect - Skin Skin Exam: Warm Assessment and Plan - Assessment and Plan (Free Text) Assessment: Diarrhea patient febrile early this morning, afebrile following Tylenol administration GI, Dr. 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 diff coverage continue flagyl 500mg PO q8h check stool studies, check C. diff, fecal leukocytes occult blood negative patient to be NPO o/n for colonoscopy tomorrow History of ulcerative colitis patient takes Lialda (mesalamine) at home start mesalamine 1600mg PO TID, solucortef 100mg IV q8h Peripheral neuropathy restart home meds: neurontin 100mg PO HS nortriptyline 25mg PO BID Prophylactic measure protonix 40mg IV daily SCDs management as per Dr. Sheldon
[2018-01-29] MEDS: Vancomycin 125 MG/5 ML SOLN (ORAL/RECTAL) PO SCH ×2 (14:43→18:06)
[2018-01-29] MEDS ORDERED: Peg-Electrolyte Oral Soln 4L (Golytely) PO ONE (18:00)
[2018-01-30] MEDS: Potassium Chloride 20 MEQ in Dextrose 5%/0.45% NS 1,000 ML IV SCH ×4 (00:28→17:25)
[2018-01-30] MEDS: Vancomycin 125 MG/5 ML SOLN (ORAL/RECTAL) PO SCH ×5 (01:00→23:55)
[2018-01-30] MEDS: metroNIDAZOLE IV 500 mg/100 ml 500 MG/100 ML BAG IVPB SCH ×3 (05:17→21:08)
[2018-01-30 07:47] LABS: BASO % 0.2 % (0.0-2.0); HEMOGLOBIN 12.1 g/dL (11.0-16.0); LYMPH # 0.8 K/uL (1.0-4.3); LYMPH % 10.6 % (20.0-40.0); MEAN CELL VOLUME 98.3 fL (81.0-99.0); MEAN CORPUSCULAR HEMOGLOBIN 33.4 pg (27.0-31.0); MEAN PLATELET VOLUME 9.6 fL (7.2-11.7); MONO # 0.3 K/uL (0.0-0.8); MONO % 3.7 % (0.0-10.0); NEUT # 6.3 K/uL (1.8-7.0); NEUT % 85.5 % (50.0-75.0); NRBC % 0.1 % (0.0-2.0); RBC 3.61 Mil/uL (3.80-5.20); WHITE BLOOD COUNT 7.3 K/uL (4.8-10.8)
[2018-01-30] MEDS ORDERED: Propofol 10 mg/ml Inj (20 ML) ONE ×2 (07:52→08:09)
[2018-01-30] MEDS ORDERED: Midazolam 2 MG/2 ML VIAL ONE (07:52)
[2018-01-30 08:23] LABS: ALBUMIN 3.4 g/dL (3.5-5.0); ALT/SGPT 98 U/L (9-52); AST/SGOT 79 U/L (14-36); BLOOD UREA NITROGEN 6 mg/dL (7-17); CALCIUM 8.4 mg/dl (8.6-10.4); GFR AFRICAN-AMERICAN > 60; GFR NON-AFRICAN AMERICAN > 60
--- NOTE | 2018-01-30 09:39 | CP.PCM.PN ---
Subjective - Date & Time of Evaluation Date of Evaluation: 01/30/18 Time of Evaluation: 09:33 - Subjective Subjective: Medicine progress note for Dr. Sheldon's service Patient resting comfortably in bed s/p colonoscopy this morning. Patient states she is feeling better than yesterday and would like to try drinking some tea. Objective - Vital Signs/Intake and Output Vital Signs (last 24 hours): Temp Pulse Resp BP Pulse Ox 98.0 F 66 18 137/62 100 01/30/18 07:50 01/30/18 07:50 01/30/18 07:50 01/30/18 07:50 01/30/18 07:50 Intake and Output: 01/30/18 01/30/18 06:59 18:59 Intake Total 1900 250 Balance 1900 250 - Medications Medications: Current Medications Acetaminophen (Tylenol 325mg Tab) 650 mg PO Q6 PRN PRN Reason: Fever >100.4 F Acetaminophen (Tylenol 325mg Tab) 650 mg PO Q6 PRN PRN Reason: Pain, Mild (1-3) Gabapentin (Neurontin) 100 mg PO HS [facility] Last Admin: 01/29/18 21:05 Dose: 100 mg Hydrocortisone Sodium Succinate (Solu-Cortef) 100 mg IV Q8H [facility] Last Admin: 01/30/18 03:30 Dose: 100 mg Metronidazole (Flagyl) 500 mg in 100 mls @ 100 mls/hr IVPB Q8 [facility] PRN Reason: Protocol Last Admin: 01/30/18 05:17 Dose: 100 mls/hr Potassium Chloride 20 meq/ (Dextrose/Sodium Chloride) 1,010 mls @ 100 mls/hr IV .Q10H6M [facility] Last Admin: 01/30/18 05:17 Dose: Not Given Mesalamine (Delzicol Dr) 1,600 mg PO TID [facility] Last Admin: 01/29/18 18:05 Dose: 1,600 mg Nortriptyline HCl (Pamelor) 25 mg PO BID [facility] Last Admin: 01/29/18 18:06 Dose: 25 mg Pantoprazole Sodium (Protonix Inj) 40 mg IVP DAILY [facility] Last Admin: 01/29/18 11:07 Dose: 40 mg Vancomycin HCl (Vancocin (Oral Or Rectal Use)) 125 mg PO Q6H [facility] PRN Reason: Protocol Last Admin: 01/30/18 05:17 Dose: Not Given - Labs Labs: 01/30/18 07:18 01/30/18 07:18 PT 11.1 SECONDS (9.7-12.2) 01/28/18 13:21 INR 1.0 01/28/18 13:21 APTT 27 SECONDS (21-34) 01/28/18 13:21 - Constitutional Appears: No Acute Distress - Head Exam Head Exam: ATRAUMATIC, NORMOCEPHALIC - Eye Exam Eye Exam: EOMI - ENT Exam ENT Exam: Mucous Membranes Moist - Respiratory Exam Respiratory Exam: Clear to Ausculation Bilateral - Cardiovascular Exam Cardiovascular Exam: +S1, +S2 - GI/Abdominal Exam GI & Abdominal Exam: Soft. absent: Tenderness - Extremities Exam Extremities Exam: Normal Inspection. absent: Pedal Edema - Neurological Exam Neurological Exam: Alert, Awake - Skin Skin Exam: Warm Assessment and Plan - Assessment and Plan (Free Text) Assessment: Diarrhea patient febrile early this morning, afebrile following Tylenol administration GI, Dr. 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 diff coverage continue flagyl 500mg PO q8h ova and parasite studies of stool negative fecal leukocytes positive C. diff negative CRP >15.00 ESR 18 occult blood negative 01/30/18: s/p colonoscopy this morning with findings: patchy mild inflammation characterized by congestion (edema) erythema and granularity was found in the rectum and sigmoid colon. Multiple biopsies obtained in descending colon, transverse colon, ascending colon and in cecum. History of ulcerative colitis patient takes Lialda (mesalamine) at home continue mesalamine 1600mg PO TID, solucortef 100mg IV q8h as per GI Peripheral neuropathy restart home meds: neurontin 100mg PO HS nortriptyline 25mg PO BID Prophylactic measure protonix 40mg IV daily SCDs management as per Dr. Sheldon
[2018-01-30 15:22] LABS: SOURCE STOOL
[2018-01-30] MEDS ORDERED: Loperamide Hydrochloride 1 mg/5 ml Cup PO ONE (22:13)
[2018-01-31] MEDS: Potassium Chloride 20 MEQ in Dextrose 5%/0.45% NS 1,000 ML IV SCH ×2 (04:41→07:02)
[2018-01-31] MEDS: metroNIDAZOLE IV 500 mg/100 ml 500 MG/100 ML BAG IVPB SCH ×3 (05:37→21:15)
[2018-01-31] MEDS: Vancomycin 125 MG/5 ML SOLN (ORAL/RECTAL) PO SCH ×3 (05:37→17:29)
[2018-01-31 09:01] LABS: BASO % 0.3 % (0.0-2.0); HEMOGLOBIN 12.4 g/dL (11.0-16.0); LYMPH % 9.7 % (20.0-40.0); MEAN CELL VOLUME 96.9 fL (81.0-99.0); MEAN CORPUSCULAR HEMOGLOBIN 33.1 pg (27.0-31.0); MEAN CORPUSCULAR HGB CONC 34.1 g/dL (33.0-37.0); MEAN PLATELET VOLUME 9.2 fL (7.2-11.7); MONO # 0.4 K/uL (0.0-0.8); MONO % 3.6 % (0.0-10.0); NEUT # 8.5 K/uL (1.8-7.0); NEUT % 86.4 % (50.0-75.0); PLATELET COUNT 228 K/uL (130-400); RBC 3.74 Mil/uL (3.80-5.20); RED CELL DISTRIBUTION WIDTH 12.8 % (11.5-14.5); WHITE BLOOD COUNT 9.8 K/uL (4.8-10.8)
[2018-01-31 09:18] LABS: ALB/GLOB RATIO 1.1 (1.0-2.1); ALBUMIN 3.5 g/dL (3.5-5.0); ALT/SGPT 69 U/L (9-52); AST/SGOT 32 U/L (14-36); BLOOD UREA NITROGEN 6 mg/dL (7-17); CALCIUM 8.5 mg/dl (8.6-10.4); GFR AFRICAN-AMERICAN > 60; GFR NON-AFRICAN AMERICAN > 60
[2018-01-31 09:24] LABS: LYMPHOCYTE 5 % (20-40); MONOCYTE 5 % (0-10); NEUTROPHIL 90 % (50-75); PLATELET ESTIMATE NORMAL (NORMAL); TOTAL CELLS COUNTED 100
--- NOTE | 2018-01-31 09:44 | CP.PCM.PN ---
Subjective - Date & Time of Evaluation Date of Evaluation: 01/31/18 Time of Evaluation: 09:44 - Subjective Subjective: Medicine progress note for Dr. Sheldon's service Patient seen and examined. Patient states she is still having multiple large volume watery stools. She states she is hesitant to eat as everything causes more diarrhea. Patient states she would like to try to eat more today and will try to drink more fluids. Patient also reports poor sleep. Objective - Vital Signs/Intake and Output Vital Signs (last 24 hours): Temp Pulse Resp BP Pulse Ox 98.1 F 64 18 145/74 98 01/31/18 08:04 01/31/18 08:04 01/31/18 08:04 01/31/18 08:40 01/31/18 08:04 Intake and Output: 01/31/18 01/31/18 06:59 18:59 Intake Total 2100 Balance 2100 - Medications Medications: Current Medications Acetaminophen (Tylenol 325mg Tab) 650 mg PO Q6 PRN PRN Reason: Fever >100.4 F Acetaminophen (Tylenol 325mg Tab) 650 mg PO Q6 PRN PRN Reason: Pain, Mild (1-3) Gabapentin (Neurontin) 100 mg PO HS [facility] Last Admin: 01/30/18 21:08 Dose: 100 mg Hydrocortisone Sodium Succinate (Solu-Cortef) 100 mg IV Q8H [facility] Last Admin: 01/31/18 03:39 Dose: 100 mg Metronidazole (Flagyl) 500 mg in 100 mls @ 100 mls/hr IVPB Q8 [facility] PRN Reason: Protocol Last Admin: 01/31/18 05:37 Dose: 100 mls/hr Potassium Chloride 20 meq/ (Dextrose/Sodium Chloride) 1,010 mls @ 100 mls/hr IV .Q10H6M [facility] Last Admin: 01/31/18 07:02 Dose: 100 mls/hr Mesalamine (Delzicol Dr) 1,600 mg PO TID [facility] Last Admin: 01/30/18 17:24 Dose: 1,600 mg Nortriptyline HCl (Pamelor) 25 mg PO BID [facility] Last Admin: 01/30/18 17:25 Dose: 25 mg Pantoprazole Sodium (Protonix Inj) 40 mg IVP DAILY [facility] Last Admin: 01/30/18 10:11 Dose: 40 mg Temazepam (Restoril) 15 mg PO HS PRN PRN Reason: Insomnia Vancomycin HCl (Vancocin (Oral Or Rectal Use)) 125 mg PO Q6H [facility] PRN Reason: Protocol Last Admin: 01/31/18 05:37 Dose: 125 mg - Labs Labs: 01/31/18 08:58 01/31/18 08:58 PT 11.1 SECONDS (9.7-12.2) 01/28/18 13:21 INR 1.0 01/28/18 13:21 APTT 27 SECONDS (21-34) 01/28/18 13:21 - Constitutional Appears: No Acute Distress - Head Exam Head Exam: ATRAUMATIC, NORMOCEPHALIC - Eye Exam Eye Exam: EOMI - ENT Exam ENT Exam: Mucous Membranes Moist - Respiratory Exam Respiratory Exam: Clear to Ausculation Bilateral - Cardiovascular Exam Cardiovascular Exam: +S1, +S2 - GI/Abdominal Exam GI & Abdominal Exam: Soft, Normal Bowel Sounds. absent: Distended, Guarding, Rigid, Tenderness - Extremities Exam Extremities Exam: Normal Inspection - Neurological Exam Neurological Exam: Alert, Awake - Psychiatric Exam Psychiatric exam: Normal Affect - Skin Skin Exam: Warm Assessment and Plan - Assessment and Plan (Free Text) Assessment: Diarrhea afebrile for over 24 hours GI, Dr. 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 diff coverage continue flagyl 500mg PO q8h ova and parasite studies of stool negative Giardia and cryptosporidium negative fecal leukocytes positive C. diff Ag & toxin negative, C. diff send out test pending CRP >15.00 ESR 18 occult blood negative 01/30/18: s/p colonoscopy this morning with findings: patchy mild inflammation characterized by congestion (edema) erythema and granularity was found in the rectum and sigmoid colon. Multiple biopsies obtained in descending colon, transverse colon, ascending colon and in cecum. History of ulcerative colitis patient takes Lialda (mesalamine) at home continue mesalamine 1600mg PO TID, solucortef 100mg IV q8h as per GI Peripheral neuropathy restart home meds: neurontin 100mg PO HS nortriptyline 25mg PO BID Insomnia start restoril tonight Prophylactic measure protonix 40mg IV daily SCDs management as per Dr. Sheldon
--- NOTE | 2018-01-31 14:08 | CP.PCM.PN ---
Subjective - Date & Time of Evaluation Date of Evaluation: 01/31/18 Time of Evaluation: 14:05 - Subjective Subjective: Patient continues to complain of diarrhea, four times so far today. She denies having nausea, vomiting , abdominal pain. Objective - Vital Signs/Intake and Output Vital Signs (last 24 hours): Temp Pulse Resp BP Pulse Ox 98.1 F 64 18 145/74 98 01/31/18 08:04 01/31/18 08:04 01/31/18 08:04 01/31/18 08:40 01/31/18 08:04 Intake and Output: 01/31/18 01/31/18 06:59 18:59 Intake Total 2100 Balance 2100 - Medications Medications: Current Medications Acetaminophen (Tylenol 325mg Tab) 650 mg PO Q6 PRN PRN Reason: Fever >100.4 F Acetaminophen (Tylenol 325mg Tab) 650 mg PO Q6 PRN PRN Reason: Pain, Mild (1-3) Cholestyramine Resin (Questran) 4 gm PO Q12 [facility] Gabapentin (Neurontin) 100 mg PO HS [facility] Last Admin: 01/30/18 21:08 Dose: 100 mg Hydrocortisone Sodium Succinate (Solu-Cortef) 100 mg IV Q8H [facility] Last Admin: 01/31/18 11:32 Dose: 100 mg Metronidazole (Flagyl) 500 mg in 100 mls @ 100 mls/hr IVPB Q8 [facility] PRN Reason: Protocol Last Admin: 01/31/18 05:37 Dose: 100 mls/hr Mesalamine (Delzicol Dr) 1,600 mg PO TID [facility] Last Admin: 01/31/18 10:26 Dose: 1,600 mg Nortriptyline HCl (Pamelor) 25 mg PO BID [facility] Last Admin: 01/31/18 10:26 Dose: 25 mg Pantoprazole Sodium (Protonix Inj) 40 mg IVP DAILY [facility] Last Admin: 01/31/18 10:26 Dose: 40 mg Temazepam (Restoril) 15 mg PO HS PRN PRN Reason: Insomnia Vancomycin HCl (Vancocin (Oral Or Rectal Use)) 125 mg PO Q6H [facility] PRN Reason: Protocol Last Admin: 01/31/18 11:32 Dose: 125 mg Zolpidem Tartrate (Ambien) 5 mg PO HS PRN PRN Reason: Insomnia - Labs Labs: 01/31/18 08:58 01/31/18 08:58 PT 11.1 SECONDS (9.7-12.2) 01/28/18 13:21 INR 1.0 01/28/18 13:21 APTT 27 SECONDS (21-34) 01/28/18 13:21 - Constitutional Appears: No Acute Distress - Head Exam Head Exam: ATRAUMATIC, NORMOCEPHALIC - Eye Exam Eye Exam: EOMI, PERRL - Neck Exam Neck Exam: absent: Lymphadenopathy, Thyromegaly - Respiratory Exam Respiratory Exam: NORMAL BREATHING PATTERN. absent: Rales, Rhonchi, Wheezes - Cardiovascular Exam Cardiovascular Exam: REGULAR RHYTHM, +S1, +S2. absent: Gallop, Rubs, Murmur - GI/Abdominal Exam GI & Abdominal Exam: Soft, Normal Bowel Sounds. absent: Tenderness, Mass, Organomegaly - Rectal Exam Rectal Exam: Deferred - Extremities Exam Extremities Exam: absent: Calf Tenderness, Pedal Edema Assessment and Plan (1) Bloody diarrhea Assessment & Plan: Patient continues to experience diarrhea, less bloody. Colonoscopy showed no endoscopic evidence of UC, making infection more likely. The stool giardia antigen, C + S, and O + P were all negative. C difficile toxin BRANDO was negative. C diff PCR was ordered 01/29/2018 but was cancelled by Ella Perez in the lab, who changed it to routine BRANDO. C diff PCR was reordered , and the result is still pending. Status: Acute
[2018-01-31] MEDS ORDERED: Cholestyramine 4 gm/Pkt UD PO SCH (21:00)
[2018-02-01] MEDS: Vancomycin 125 MG/5 ML SOLN (ORAL/RECTAL) PO SCH ×4 (00:09→18:00)
[2018-02-01] MEDS: metroNIDAZOLE IV 500 mg/100 ml 500 MG/100 ML BAG IVPB SCH ×3 (05:39→21:38)
--- NOTE | 2018-02-01 07:54 | CP.PCM.PN ---
Subjective - Date & Time of Evaluation Date of Evaluation: 02/01/18 Time of Evaluation: 07:52 - Subjective Subjective: Patient has had three loose stools this morning, approximately seven for the past 24 hours. She denies having abdominal pain, nausea, or vomiting. Her appetite has been poor. Objective - Vital Signs/Intake and Output Vital Signs (last 24 hours): Temp Pulse Resp BP Pulse Ox 97.9 F 65 20 168/77 H 97 02/01/18 00:00 02/01/18 00:00 02/01/18 00:00 02/01/18 00:00 02/01/18 00:00 Intake and Output: 02/01/18 02/01/18 06:59 18:59 Intake Total 600 Balance 600 - Medications Medications: Current Medications Acetaminophen (Tylenol 325mg Tab) 650 mg PO Q6 PRN PRN Reason: Fever >100.4 F Acetaminophen (Tylenol 325mg Tab) 650 mg PO Q6 PRN PRN Reason: Pain, Mild (1-3) Cholestyramine Resin (Questran) 4 gm PO Q12 [facility] Last Admin: 01/31/18 21:16 Dose: 4 gm Gabapentin (Neurontin) 100 mg PO HS [facility] Last Admin: 01/31/18 21:16 Dose: 100 mg Hydrocortisone Sodium Succinate (Solu-Cortef) 50 mg IV Q8H [facility] Metronidazole (Flagyl) 500 mg in 100 mls @ 100 mls/hr IVPB Q8 [facility] PRN Reason: Protocol Last Admin: 02/01/18 05:39 Dose: 100 mls/hr Mesalamine (Delzicol Dr) 1,600 mg PO TID [facility] Last Admin: 01/31/18 17:28 Dose: 1,600 mg Nortriptyline HCl (Pamelor) 25 mg PO BID [facility] Last Admin: 01/31/18 17:28 Dose: 25 mg Pantoprazole Sodium (Protonix Inj) 40 mg IVP DAILY [facility] Last Admin: 01/31/18 10:26 Dose: 40 mg Vancomycin HCl (Vancocin (Oral Or Rectal Use)) 125 mg PO Q6H [facility] PRN Reason: Protocol Stop: 02/04/18 07:00 Last Admin: 02/01/18 05:39 Dose: 125 mg Zolpidem Tartrate (Ambien) 5 mg PO HS PRN PRN Reason: Insomnia Last Admin: 01/31/18 21:16 Dose: 5 mg - Labs Labs: 01/31/18 08:58 01/31/18 08:58 PT 11.1 SECONDS (9.7-12.2) 01/28/18 13:21 INR 1.0 01/28/18 13:21 APTT 27 SECONDS (21-34) 01/28/18 13:21 - Constitutional Appears: No Acute Distress - Head Exam Head Exam: ATRAUMATIC, NORMOCEPHALIC - Eye Exam Eye Exam: EOMI, PERRL - Neck Exam Neck Exam: absent: Lymphadenopathy, Thyromegaly - Respiratory Exam Respiratory Exam: NORMAL BREATHING PATTERN. absent: Rales, Rhonchi, Wheezes - Cardiovascular Exam Cardiovascular Exam: REGULAR RHYTHM, +S1, +S2. absent: Gallop, Rubs, Murmur - GI/Abdominal Exam GI & Abdominal Exam: Soft, Normal Bowel Sounds. absent: Hyperactive Bowel Sounds, Mass - Rectal Exam Rectal Exam: Deferred - Extremities Exam Extremities Exam: absent: Calf Tenderness, Pedal Edema Assessment and Plan (1) Bloody diarrhea Assessment & Plan: Patient continues to complain of diarrhea, with no real improvement from admission. Biopsies show mild acute colitis, no viral inclusions, though special stains for CMV are pending. Stool culture, O+P, C diff, giardia antigen and cryptosporidia are negative. Await CMV stain on the biopsy. Increase Questran to three times a day. Taper hydrocortisone. Status: Acute
[2018-02-01] MEDS: Cholestyramine 4 gm/Pkt UD PO SCH ×4 (08:10→17:59)
[2018-02-01 08:15] LABS: BASO % 0.2 % (0.0-2.0); HEMOGLOBIN 11.6 g/dL (11.0-16.0); LYMPH # 0.9 K/uL (1.0-4.3); LYMPH % 13.5 % (20.0-40.0); MEAN CELL VOLUME 97.9 fL (81.0-99.0); MEAN CORPUSCULAR HEMOGLOBIN 32.9 pg (27.0-31.0); MEAN CORPUSCULAR HGB CONC 33.6 g/dL (33.0-37.0); MEAN PLATELET VOLUME 9.2 fL (7.2-11.7); MONO # 0.4 K/uL (0.0-0.8); MONO % 5.3 % (0.0-10.0); NEUT # 5.5 K/uL (1.8-7.0); RBC 3.54 Mil/uL (3.80-5.20); RED CELL DISTRIBUTION WIDTH 12.8 % (11.5-14.5); WHITE BLOOD COUNT 6.8 K/uL (4.8-10.8)
[2018-02-01 08:28] LABS: ALB/GLOB RATIO 1.1 (1.0-2.1); ALBUMIN 3.3 g/dL (3.5-5.0); ALT/SGPT 65 U/L (9-52); AST/SGOT 23 U/L (14-36); BLOOD UREA NITROGEN 8 mg/dL (7-17); CALCIUM 8.1 mg/dl (8.6-10.4); GFR AFRICAN-AMERICAN > 60; GFR NON-AFRICAN AMERICAN > 60
[2018-02-01] MEDS ORDERED: Potassium Chloride 20 mEq ER Tab PO ONE (09:53)
[2018-02-01 12:06] LABS: HEPATITIS B SURFACE AG Negative (NEGATIVE)
[2018-02-01 12:11] LABS: HEPATITIS B CORE AB NEGATIVE (NEGATIVE)
--- NOTE | 2018-02-01 14:18 | CP.PCM.PN ---
Subjective - Date & Time of Evaluation Date of Evaluation: 02/01/18 Time of Evaluation: 11:00 - Subjective Subjective: PGY-[address] Sheldon Patient seen and examined at bedside. Patient reports to have 7 episodes of watery diarrhea since yesterday. She was only able to eat a few spoonful of food yesterday. Objective - Vital Signs/Intake and Output Vital Signs (last 24 hours): Temp Pulse Resp BP Pulse Ox 98.4 F 56 L 20 178/78 H 95 02/01/18 08:00 02/01/18 08:00 02/01/18 08:00 02/01/18 08:00 02/01/18 08:00 Intake and Output: 02/01/18 02/01/18 06:59 18:59 Intake Total 600 Balance 600 - Medications Medications: Current Medications Acetaminophen (Tylenol 325mg Tab) 650 mg PO Q6 PRN PRN Reason: Fever >100.4 F Acetaminophen (Tylenol 325mg Tab) 650 mg PO Q6 PRN PRN Reason: Pain, Mild (1-3) Cholestyramine Resin (Questran) 4 gm PO TID [facility] Last Admin: 02/01/18 13:52 Dose: 4 gm Gabapentin (Neurontin) 100 mg PO HS [facility] Last Admin: 01/31/18 21:16 Dose: 100 mg Hydrocortisone Sodium Succinate (Solu-Cortef) 50 mg IV Q8H [facility] Last Admin: 02/01/18 12:19 Dose: 50 mg Metronidazole (Flagyl) 500 mg in 100 mls @ 100 mls/hr IVPB Q8 [facility] PRN Reason: Protocol Last Admin: 02/01/18 13:52 Dose: 100 mls/hr Mesalamine (Delzicol Dr) 1,600 mg PO TID [facility] Last Admin: 02/01/18 13:52 Dose: 1,600 mg Nortriptyline HCl (Pamelor) 25 mg PO BID [facility] Last Admin: 02/01/18 10:19 Dose: 25 mg Pantoprazole Sodium (Protonix Inj) 40 mg IVP DAILY [facility] Last Admin: 02/01/18 10:19 Dose: 40 mg Vancomycin HCl (Vancocin (Oral Or Rectal Use)) 125 mg PO Q6H [facility] PRN Reason: Protocol Stop: 02/04/18 07:00 Last Admin: 02/01/18 12:18 Dose: 125 mg Zolpidem Tartrate (Ambien) 5 mg PO HS PRN PRN Reason: Insomnia Last Admin: 01/31/18 21:16 Dose: 5 mg - Labs Labs: 02/01/18 08:03 02/01/18 08:03 PT 11.1 SECONDS (9.7-12.2) 01/28/18 13:21 INR 1.0 01/28/18 13:21 APTT 27 SECONDS (21-34) 01/28/18 13:21 - Additional Findings Additional findings: - Constitutional Appears: No Acute Distress - Head Exam Head Exam: ATRAUMATIC, NORMOCEPHALIC - Eye Exam Eye Exam: EOMI - ENT Exam ENT Exam: Mucous Membranes Moist - Respiratory Exam Respiratory Exam: Clear to Ausculation Bilateral - Cardiovascular Exam Cardiovascular Exam: +S1, +S2 - GI/Abdominal Exam GI & Abdominal Exam: Soft, Normal Bowel Sounds. absent: Distended, Guarding, Rigid, Tenderness - Extremities Exam Extremities Exam: Normal Inspection - Neurological Exam Neurological Exam: Alert, Awake - Psychiatric Exam Psychiatric exam: Normal Affect - Skin Skin Exam: Warm Assessment and Plan - Assessment and Plan (Free Text) Assessment: Diarrhea afebrile for over 24 hours GI, Dr. Lemus, consulted- help appreciated Biopsies show mild acute colitis, no viral inclusions, pending CMV stain start PO vancomycin 125mg q6h for empiric C. diff coverage continue flagyl 500mg PO q8h ova and parasite studies of stool negative Giardia and cryptosporidium negative fecal leukocytes positive C. diff Ag & toxin negative, C. diff send out test pending CRP >15.00 ESR 18 occult blood negative 01/30/18: s/p colonoscopy showed patchy mild inflammation characterized by congestion (edema) erythema and granularity was found in the rectum and sigmoid colon. Multiple biopsies obtained in descending colon, transverse colon, ascending colon and in cecum. History of ulcerative colitis patient takes Lialda (mesalamine) at home continue mesalamine 1600mg PO TID, solucortef 50mg IV q8h, Cholestyramine 4g PO TID as per GI Peripheral neuropathy restart home meds: neurontin 100mg PO HS nortriptyline 25mg PO BID Insomnia Ambien 5mg po HS PRN Prophylactic measure protonix 40mg IV daily SCDs management as per Dr. Sheldon
[2018-02-01 15:52] LABS: BLOOD UREA NITROGEN 7 mg/dL (7-17); CALCIUM 8.5 mg/dl (8.6-10.4); GFR AFRICAN-AMERICAN > 60; GFR NON-AFRICAN AMERICAN > 60
[2018-02-02] MEDS: Vancomycin 125 MG/5 ML SOLN (ORAL/RECTAL) PO SCH ×4 (00:30→18:05)
[2018-02-02] MEDS: metroNIDAZOLE IV 500 mg/100 ml 500 MG/100 ML BAG IVPB SCH ×2 (05:15→14:10)
[2018-02-02] MEDS: Cholestyramine 4 gm/Pkt UD PO SCH ×3 (09:16→21:22)
--- NOTE | 2018-02-02 10:18 | CP.PCM.PN ---
Subjective - Date & Time of Evaluation Date of Evaluation: 02/02/18 Time of Evaluation: 10:15 - Subjective Subjective: F/U colitis. COvering Dr Lemus. Reports feeling well. She wants to go home. Diarrhea- less. Appetite- OK. She does not like the food. Denies RB, melena, fever, chills, SEGURA, cough, hematuria, hemoptysis. Objective - Vital Signs/Intake and Output Vital Signs (last 24 hours): Temp Pulse Resp BP Pulse Ox 98.3 F 90 20 123/70 97 02/02/18 08:16 02/02/18 08:16 02/02/18 08:16 02/02/18 08:16 02/02/18 08:16 Intake and Output: 02/02/18 02/02/18 06:59 18:59 Intake Total 520 Balance 520 - Medications Medications: Current Medications Acetaminophen (Tylenol 325mg Tab) 650 mg PO Q6 PRN PRN Reason: Fever >100.4 F Acetaminophen (Tylenol 325mg Tab) 650 mg PO Q6 PRN PRN Reason: Pain, Mild (1-3) Cholestyramine Resin (Questran) 4 gm PO TID [facility] Last Admin: 02/02/18 09:16 Dose: 4 gm Gabapentin (Neurontin) 100 mg PO HS [facility] Last Admin: 02/01/18 21:56 Dose: 100 mg Hydrocortisone Sodium Succinate (Solu-Cortef) 50 mg IV Q8H [facility] Last Admin: 02/02/18 03:00 Dose: 50 mg Metronidazole (Flagyl) 500 mg in 100 mls @ 100 mls/hr IVPB Q8 [facility] PRN Reason: Protocol Last Admin: 02/02/18 05:15 Dose: 100 mls/hr Mesalamine (Delzicol Dr) 1,600 mg PO TID [facility] Last Admin: 02/02/18 09:16 Dose: 1,600 mg Nortriptyline HCl (Pamelor) 25 mg PO BID [facility] Last Admin: 02/02/18 09:16 Dose: 25 mg Pantoprazole Sodium (Protonix Inj) 40 mg IVP DAILY [facility] Last Admin: 02/02/18 09:17 Dose: Not Given Vancomycin HCl (Vancocin (Oral Or Rectal Use)) 125 mg PO Q6H [facility] PRN Reason: Protocol Stop: 02/04/18 07:00 Last Admin: 02/02/18 05:15 Dose: 125 mg Zolpidem Tartrate (Ambien) 5 mg PO HS PRN PRN Reason: Insomnia Last Admin: 02/02/18 03:20 Dose: 5 mg - Labs Labs: 02/01/18 08:03 02/01/18 15:26 PT 11.1 SECONDS (9.7-12.2) 01/28/18 13:21 INR 1.0 01/28/18 13:21 APTT 27 SECONDS (21-34) 01/28/18 13:21 - Constitutional Appears: Well, Non-toxic - Neck Exam Neck Exam: absent: Tenderness - Respiratory Exam Respiratory Exam: Clear to Ausculation Bilateral - Cardiovascular Exam Cardiovascular Exam: RRR - GI/Abdominal Exam GI & Abdominal Exam: Soft, Normal Bowel Sounds. absent: Guarding, Tenderness, Mass - Extremities Exam Extremities Exam: absent: Pedal Edema - Neurological Exam Neurological Exam: Alert, Oriented x3 Assessment and Plan (1) Bloody diarrhea Assessment & Plan: UC. C diff is neg. Feeling better. GI- stable. Rec- continue meds. Pending: cryptosporidia and CMV results. Status: Acute (2) Colitis Status: Acute (3) Ulcerative colitis Status: Acute
[2018-02-02 14:00] LABS: HAV AB (IGM) Nonreactive (Nonreactive)
[2018-02-02 14:06] LABS: BLOOD UREA NITROGEN 11 mg/dL (7-17); CALCIUM 8.7 mg/dl (8.6-10.4); GFR AFRICAN-AMERICAN > 60; GFR NON-AFRICAN AMERICAN > 60
--- NOTE | 2018-02-02 15:07 | CP.PCM.PN ---
Subjective - Date & Time of Evaluation Date of Evaluation: 02/02/18 Time of Evaluation: 15:07 - Subjective Subjective: PT SEEN THIS MORNING BY DR. MADRID AND CLEARED FOR D/C HOME. REPEATED BMP PRIOR TO D/C, PT'S K WAS 2.7 THEN 3/ YESTERDAY. TODAY THE K IS 2.4. I NOTIFIED DR. MADRID. WILL ORDER 3 K-RIDERS FOR TODAY AND PT CAN BE D/C AFTER THAT. PT AND SISTER REQUESTING TO LEAVE IN THE MORNING, LAST K-RIDER INFUSION WILL END AT APPROX 2000 TONIGHT. D/C ORDER AND D/C PAPERWORK COMPLETED AND PT OK TO BE D/C TOMORROW MORNING AFTER BREAKFAST. PROBATE JUDGE SENT RX FOR K-DUR AND PREDNISONE TAPER TO PT'S PHARMACY ALREADY AND SHE WILL PICK THEM UP TOMORROW AFTER D/C. WILL REPEAT K THIS EVENING AFTER ALL K-RIDERS GIVEN. PT VERBALIZES UNDERSTANDING OF PLAN. NO FURTHER ORDERS. D/C PLAN: -FOLLOW UP WITH DR. MADRID IN THE OFFICE WITHIN 5-7 DAYS AFTER DISCHARGE FROM HOSPITAL---CALL THE OFFICE TO MAKE APPT. -FOLLOW UP WITH DR. CLARK ALREADY SCHEDULED ON 02/04/18----DURING THIS VISIT DR. CLARK WILL DISCUSS LAB RESULTS WITH YOU. -CONTINUE MEDICATIONS USUAL. -NEW PRESCRIPTIONS INCLUDE: 1) POTASSIUM SUPPLEMENTS (KCL): TAKE ONCE A DAY. 2) PREDNISONE (STEROID) TAKE EXACTLY PRESCRIBED: 40 MG (4 TABLETS) BY MOUTH FOR 2 DAYS, THEN 30 MG (3 TABLETS) BY MOUTH FOR 2 DAYS, 20 MG (2 TABLETS) BY MOUTH FOR 2 DAYS, THEN 10 MG (1 TABLET) BY MOUTH FOR 2 DAYS. -IF YOU HAVE ANY FURTHER QUESTIONS, CONTACT DR. MADRID OR DR. CLARK. Objective - Vital Signs/Intake and Output Vital Signs (last 24 hours): Temp Pulse Resp BP Pulse Ox 98.3 F 90 20 123/70 97 02/02/18 08:16 02/02/18 08:16 02/02/18 08:16 02/02/18 08:16 02/02/18 08:16 Intake and Output: 02/02/18 02/02/18 06:59 18:59 Intake Total 520 Balance 520 - Medications Medications: Current Medications Acetaminophen (Tylenol 325mg Tab) 650 mg PO Q6 PRN PRN Reason: Fever >100.4 F Acetaminophen (Tylenol 325mg Tab) 650 mg PO Q6 PRN PRN Reason: Pain, Mild (1-3) Cholestyramine Resin (Questran) 4 gm PO TID [facility] Last Admin: 02/02/18 09:16 Dose: 4 gm Gabapentin (Neurontin) 100 mg PO HS [facility] Last Admin: 02/01/18 21:56 Dose: 100 mg Hydrocortisone Sodium Succinate (Solu-Cortef) 50 mg IV Q8H [facility] Last Admin: 02/02/18 13:06 Dose: 50 mg Metronidazole (Flagyl) 500 mg in 100 mls @ 100 mls/hr IVPB Q8 [facility] PRN Reason: Protocol Last Admin: 02/02/18 05:15 Dose: 100 mls/hr Potassium Chloride (Potassium Chloride 20 Meq/100 Ml) 20 meq in 100 mls @ 50 mls/hr IVPB 1500,1700,1900 [facility] Stop: 02/02/18 20:59 Mesalamine (Delzicol Dr) 1,600 mg PO TID [facility] Last Admin: 02/02/18 09:16 Dose: 1,600 mg Nortriptyline HCl (Pamelor) 25 mg PO BID [facility] Last Admin: 02/02/18 09:16 Dose: 25 mg Pantoprazole Sodium (Protonix Inj) 40 mg IVP DAILY [facility] Last Admin: 02/02/18 13:05 Dose: 40 mg Vancomycin HCl (Vancocin (Oral Or Rectal Use)) 125 mg PO Q6H [facility] PRN Reason: Protocol Stop: 02/04/18 07:00 Last Admin: 02/02/18 13:07 Dose: 125 mg Zolpidem Tartrate (Ambien) 5 mg PO HS PRN PRN Reason: Insomnia Last Admin: 02/02/18 03:20 Dose: 5 mg - Labs Labs: 02/01/18 08:03 02/02/18 12:43 PT 11.1 SECONDS (9.7-12.2) 01/28/18 13:21 INR 1.0 01/28/18 13:21 APTT 27 SECONDS (21-34) 01/28/18 13:21
--- NOTE | 2018-02-02 18:02 | US ---
HISTORY: Elevated liver enzymes COMPARISON: None. TECHNIQUE: Sonographic evaluation of the abdomen. FINDINGS: LIVER: Measures 12.3 cm. Increased echogenicity of the liver parenchyma. No mass. No intrahepatic bile duct dilatation. GALLBLADDER: Gallbladder essentially contracted and otherwise unremarkable. COMMON BILE DUCT: Measures 3.4 mm. No stones. No dilatation. PANCREAS: Transabdominal and transvaginal pelvic ultrasound was performed with longitudinal and transverse images submitted for interpretation. RIGHT KIDNEY: Measures 10.1cm. Mild right hydronephrosis appreciated with mild cortical atrophy. No definitive cyst or solid renal parenchymal mass. LEFT KIDNEY: Measures 10.3cm. Mild cortical atrophy is also appreciated in this kidney. No calculus, mass, or hydronephrosis. SPLEEN: Normal in size and contour. No mass. AORTA: No aneurysmal dilatation. IVC: Unremarkable. OTHER FINDINGS: None. IMPRESSION: Hepatic steatosis. Mild right hydronephrosis. Bilateral renal cortical atrophy. Partial imaging of the pancreas.
[2018-02-02] MEDS ORDERED: Potassium Chloride 20 mEq ER Tab PO SCH (21:00)
[2018-02-02] MEDS: Potassium Chloride 20 mEq ER Tab PO SCH (21:23)
[2018-02-03] MEDS: Vancomycin 125 MG/5 ML SOLN (ORAL/RECTAL) PO SCH ×4 (00:02→17:37)
[2018-02-03] MEDS: Potassium Chloride 20 mEq ER Tab PO SCH (01:06)
[2018-02-03 08:10] VITALS: RESP 20
[2018-02-03] MEDS ORDERED: Potassium Chloride 20 mEq ER Tab PO ONE ×2 (09:00→13:00)
[2018-02-03] MEDS: Cholestyramine 4 gm/Pkt UD PO SCH ×2 (09:00→14:55)
--- NOTE | 2018-02-03 12:59 | CP.PCM.PN ---
Subjective - Date & Time of Evaluation Date of Evaluation: 02/03/18 Time of Evaluation: 12:53 - Subjective Subjective: f/u diarrhea. COvering Dr Lemus K= was low Less diarrhea. 3 BMs today- soft- small amount. Denies Abd pain, RB, melena, fever, chills, SEGURA, cough Objective - Vital Signs/Intake and Output Vital Signs (last 24 hours): Temp Pulse Resp BP Pulse Ox 98.3 F 84 20 146/76 98 02/03/18 08:08 02/03/18 08:08 02/03/18 08:08 02/03/18 08:08 02/03/18 08:15 Intake and Output: 02/03/18 02/03/18 06:59 18:59 Intake Total 450 Output Total 500 Balance -50 - Medications Medications: Current Medications Acetaminophen (Tylenol 325mg Tab) 650 mg PO Q6 PRN PRN Reason: Fever >100.4 F Acetaminophen (Tylenol 325mg Tab) 650 mg PO Q6 PRN PRN Reason: Pain, Mild (1-3) Cholestyramine Resin (Questran) 4 gm PO TID [facility] Last Admin: 02/03/18 09:00 Dose: 4 gm Gabapentin (Neurontin) 100 mg PO HS [facility] Last Admin: 02/02/18 21:23 Dose: 100 mg Hydrocortisone Sodium Succinate (Solu-Cortef) 50 mg IV Q8H [facility] Last Admin: 02/03/18 12:11 Dose: 50 mg Potassium Chloride (Potassium Chloride 20 Meq/100 Ml) 20 meq in 100 mls @ 50 mls/hr IVPB Q2 [facility] Stop: 02/03/18 15:59 Last Admin: 02/03/18 12:30 Dose: Not Given Mesalamine (Delzicol Dr) 1,600 mg PO TID [facility] Last Admin: 02/03/18 10:39 Dose: 1,600 mg Metronidazole (Flagyl) 500 mg PO Q8 [facility] PRN Reason: Protocol Last Admin: 02/03/18 06:07 Dose: 500 mg Nortriptyline HCl (Pamelor) 25 mg PO BID [facility] Last Admin: 02/03/18 10:41 Dose: 25 mg Pantoprazole Sodium (Protonix Inj) 40 mg IVP DAILY [facility] Last Admin: 02/03/18 10:40 Dose: 40 mg Vancomycin HCl (Vancocin (Oral Or Rectal Use)) 125 mg PO Q6H [facility] PRN Reason: Protocol Stop: 02/04/18 07:00 Last Admin: 02/03/18 12:10 Dose: 125 mg Zolpidem Tartrate (Ambien) 5 mg PO HS PRN PRN Reason: Insomnia Last Admin: 02/02/18 03:20 Dose: 5 mg - Labs Labs: 02/01/18 08:03 02/03/18 10:49 PT 11.1 SECONDS (9.7-12.2) 01/28/18 13:21 INR 1.0 01/28/18 13:21 APTT 27 SECONDS (21-34) 01/28/18 13:21 - Constitutional Appears: Non-toxic - Respiratory Exam Respiratory Exam: Clear to Ausculation Bilateral - Cardiovascular Exam Cardiovascular Exam: RRR - GI/Abdominal Exam GI & Abdominal Exam: Soft, Normal Bowel Sounds. absent: Tenderness - Extremities Exam Extremities Exam: absent: Calf Tenderness - Neurological Exam Neurological Exam: Alert, Oriented x3 Assessment and Plan (1) Bloody diarrhea Assessment & Plan: Improving Status: Acute (2) Colitis Status: Acute (3) Ulcerative colitis Status: Acute (4) Hypokalemia Status: Acute
[2018-02-03 16:49] VITALS: BP 167/81; PULSE 72; TEMP 98; O2SAT 99
[2018-02-03 17:13] LABS: ALB/GLOB RATIO 1.1 (1.0-2.1); ALBUMIN 3.5 g/dL (3.5-5.0); ALT/SGPT 57 U/L (9-52); AST/SGOT 35 U/L (14-36); BLOOD UREA NITROGEN 12 mg/dL (7-17); CALCIUM 8.3 mg/dl (8.6-10.4); GFR AFRICAN-AMERICAN > 60; GFR NON-AFRICAN AMERICAN > 60
--- NOTE | 2018-02-04 14:16 | PN ---
DATE: SUBJECTIVE: Patient complaining of diarrhea. The patient with low potassium . Valentin Sheldon MD
--- NOTE | 2018-02-05 06:29 | DS ---
A 77-year-old female admitted to the hospital with chief complaint of weakness, fatigue, tiredness, bloody diarrhea, and hypokalemia. The patient came to the hospital for admission. The patient has ulcerative colitis. The patient placed on bedrest, IV fluids, supportive care. Valentin Sheldon MD
== END 2018-02-03 18:15 | disposition home or self-care (01) | DRG 387 ==
LOC: C.ER 12:23 → C.9E 14:59 → C.5S 15:51 → C.3T 02-01 11:13 → UNDODISIN 02-01 17:33
PROVIDERS: ADMIT Internal Medicine Pulmonary Disease; ATTEND Internal Medicine Pulmonary Disease
PROC: 0DDL8ZX Extraction of Transverse Colon, Via Natural or Artificial Opening Endoscopic, Diagnostic (ICD-10-PCS; 2018-01-30)
PROC: 0DDN8ZX Extraction of Sigmoid Colon, Via Natural or Artificial Opening Endoscopic, Diagnostic (ICD-10-PCS; 2018-01-30)
PROC: 0DDM8ZX Extraction of Descending Colon, Via Natural or Artificial Opening Endoscopic, Diagnostic (ICD-10-PCS; 2018-01-30)
PROC: 0DDH8ZX Extraction of Cecum, Via Natural or Artificial Opening Endoscopic, Diagnostic (ICD-10-PCS; 2018-01-30)
PROC: 0DDK8ZX Extraction of Ascending Colon, Via Natural or Artificial Opening Endoscopic, Diagnostic (ICD-10-PCS; principal; 2018-01-30 07:52)
DX: K51.911 Ulcerative colitis, unspecified with rectal bleeding (principal); G62.9 Polyneuropathy, unspecified; E87.6 Hypokalemia; G47.00 Insomnia, unspecified; N18.9 Chronic kidney disease, unspecified; Z86.19 Personal history of other infectious and parasitic diseases; Z87.442 Personal history of urinary calculi; Z87.891 Personal history of nicotine dependence

== ENCOUNTER 2018-02-14 07:36 | Inpatient (IN) | payer MEDICARE, BC ==
[2018-02-14 07:36] VITALS: BMI 23.6
--- NOTE | 2018-02-14 08:06 | C.PDOC ---
History Of Present Illness 77 year old female with history of UC, recently discharged from [facility] ( 02/03/18 ) with Dx: Colitis, UC, (+) HepA. As per pt and family member, pt gradually developed chills, tactile fever for past 2-3 days associated with weakness. Otherwise, pt denies severe headache, dizziness, visual changes, sore throat, drooling, neck pain, cough, CP, SOB, dyspnea, wheezing, abd. pain, V/D, UTI sx, denies any other active complaints. At the time of evaluation, appears ill. Time Seen by Provider: 02/14/18 07:48 Chief Complaint (Nursing): Fever History Per: Patient, Family Onset/Duration Of Symptoms: Gradual Past Medical History Reviewed: Historical Data, Nursing Documentation, Vital Signs Vital Signs: Last Vital Signs Temp 99.9 F H 02/14/18 07:42 Pulse 100 H 02/14/18 10:21 Resp 18 02/14/18 10:21 BP 129/51 L 02/14/18 10:21 Pulse Ox 100 02/14/18 10:21 - Medical History PMH: Crohn's Disease Denies: Depression, Diverticulitis, Gastritis, Gall Bladder Disease, HIV, Kidney Stones, Pancreatitis - [facility] Procedures (01/28/18) (01/28/18) (01/28/18) (01/28/18) (01/28/18) CATARAC PHACOEMULS/ASPIR (09/11/13) CLOSED ENDOSCOPIC BIOPSY OF LARGE INTESTINE (02/11/14) CYSTOSCOPY NEC (11/27/06) ESOPHAGOGASTRODUODENOSCOPY [EGD] W/CLOSED BIOPSY (03/01/04) EXCISION OF RECTUM, ENDO, DIAGN (10/07/17) EXCISION OF SIGMOID COLON, ENDO, DIAGN (10/07/17) FLEXIBLE SIGMOIDOSCOPY (03/26/03) INJECT/INFUSE NEC (03/16/06) INSERT LENS AT CATAR EXT (09/11/13) MAGNETIC RESONANCE IMAGING OF SPINAL CANAL (11/28/06) REMOV URETERAL DRAIN (11/27/06) RETROGRADE PYELOGRAM (07/07/14) URETERAL CATHETERIZATION (07/07/14) Family History: States: Unknown Family Hx - Social History Hx Tobacco Use: No Hx Alcohol Use: No Hx Substance Use: No - Immunization History Hx Tetanus Toxoid Vaccination: Yes Review Of Systems Except As Marked, All Systems Reviewed And Found Negative. Constitutional: Positive for: Fever, Chills, Weakness, Malaise Eyes: Negative for: Vision Change ENT: Negative for: Ear Pain, Ear Discharge, Nose Pain, Nose Discharge, Nose Congestion, Mouth Swelling, Throat Pain, Throat Swelling Cardiovascular: Negative for: Chest Pain, Palpitations, Orthopnea, Paroxysmal Noc. Dyspnea, Edema, Light Headedness Respiratory: Negative for: Cough, Shortness of Breath, SOB with Excertion, Pleuritic Pain, Sputum, Wheezing Gastrointestinal: Negative for: Nausea, Vomiting, Abdominal Pain, Diarrhea, Melena, Hematochezia, Hematemesis Genitourinary: Negative for: Dysuria Musculoskeletal: Negative for: Neck Pain, Back Pain Skin: Negative for: Rash Neurological: Negative for: Weakness, Numbness, Altered Mental Status, Headache , Dizziness Physical Exam - Physical Exam Appears: Well, Non-toxic, Chronically Ill Skin: Normal Color, Warm, Dry, No Rash Head: Normacephalic Eye(s): bilateral: PERRL Nose: No Flaring, No Discharge Oral Mucosa: Moist, No Drooling Throat: No Erythema, No Drooling Neck: Trachea Midline, Supple Cardiovascular: Rhythm Regular, No Murmur, No JVD Respiratory: No Decreased Breath Sounds, No Accessory Muscle Use, No Stridor, No Wheezing Gastrointestinal/Abdominal: Soft, No Tenderness, No Distention, No Guarding, No Rebound Back: No CVA Tenderness Extremity: Normal ROM, No Pedal Edema, No Deformity, No Swelling Neurological/Psych: Oriented x3, Normal Speech ED Course And Treatment - Laboratory Results Result Diagrams: 02/14/18 08:03 02/14/18 08:03 Lab Interpretation: Abnormal ECG: Interpreted By Me, Viewed By Me (and ) ECG Rhythm: Sinus Rhythm ECG Interpretation: No Changes From Prior Interpretation Of ECG: SR@98min, LAD, no acute St-T changes. O2 Sat by Pulse Oximetry: 99 Pulse Ox Interpretation: Normal - Radiology CXR: Interpreted by Me CXR Interpretation: Yes: Infiltrates (RLL) - CT Scan/US Doppler US Other Rad Studies (CT/US): Read By Radiologist CT/US Interpretation: (-) DVT B/L lEs Progress Note: Blood work review and appears abnoraml, leukocytosis with bandemia. Hypokalemia noted, supplement given. CXR review (+) consolidation over RLL noted, blood cx- pending. Zosyn/Vanco given. Reulst discussed with and admission arnaged. ID consult requested. Disposition - Disposition Disposition: HOSPITALIZED Disposition Time: 09:04 Condition: STABLE - Clinical Impression Clinical Impression: Pneumonia
[2018-02-14 08:15] LABS: BASO % 0.4 % (0.0-2.0); HEMOGLOBIN 11.7 g/dL (11.0-16.0); LYMPH # 0.8 K/uL (1.0-4.3); LYMPH % 6.5 % (20.0-40.0); MEAN CELL VOLUME 96.9 fL (81.0-99.0); MEAN CORPUSCULAR HEMOGLOBIN 33.1 pg (27.0-31.0); MEAN CORPUSCULAR HGB CONC 34.1 g/dL (33.0-37.0); MONO # 0.6 K/uL (0.0-0.8); MONO % 4.7 % (0.0-10.0); NEUT # 11.5 K/uL (1.8-7.0); NEUT % 88.4 % (50.0-75.0); PLATELET COUNT 189 K/uL (130-400); RBC 3.54 Mil/uL (3.80-5.20); RED CELL DISTRIBUTION WIDTH 13.1 % (11.5-14.5)
[2018-02-14] MEDS ORDERED: Sodium Chloride 0.9% 1,000 ML IV ONE ×2 (08:16→16:04)
[2018-02-14 08:19] LABS: VENOUS BLOOD GAS BASE EXCESS 5.1 mmol/L (0.0-2.0); VENOUS BLOOD GAS PCO2 47 mmHg (40-60); VENOUS BLOOD GAS PO2 30 mm/Hg (30-55); VENOUS BLOOD PH 7.42 (7.32-7.43)
[2018-02-14 08:26] LABS: INR 1.2; PROTHROMBIN TIME 13.1 SECONDS (9.7-12.2)
[2018-02-14] MEDS ORDERED: Potassium Chloride 20 mEq ER Tab PO STA (08:29)
[2018-02-14] MEDS ORDERED: Sodium Chloride 0.9% 1,000 ML ONE (08:39)
[2018-02-14] MEDS ORDERED: Potassium Chloride 20 mEq ER Tab PO ONE (08:39)
[2018-02-14] MEDS ORDERED: Potassium Chloride 20 mEq 100 ML ONE (08:39)
[2018-02-14 08:44] LABS: BANDS 13 % (0-2); LYMPHOCYTE 10 % (20-40); MONOCYTE 3 % (0-10); PLATELET ESTIMATE NORMAL (NORMAL); TOTAL CELLS COUNTED 100
[2018-02-14 08:46] LABS: NEUTROPHIL 74 % (50-75); TOXIC GRANULATION PRESENT
[2018-02-14 08:47] LABS: LARGE PLATELETS PRESENT
[2018-02-14 08:52] LABS: ALBUMIN 3.4 g/dL (3.5-5.0); ALT/SGPT 13 U/L (9-52); AST/SGOT 27 U/L (14-36); BLOOD UREA NITROGEN 14 mg/dL (7-17); CALCIUM 8.1 mg/dl (8.6-10.4); GFR AFRICAN-AMERICAN > 60; GFR NON-AFRICAN AMERICAN > 60
[2018-02-14 09:01] LABS: INFLUENZA A B NEGATIVE FOR FLU A/B (NEGATIVE)
[2018-02-14] MEDS ORDERED: Vancomycin 1 gm/NS 200 ml 1 GM/200 ML BAG IVPB STA (09:01)
[2018-02-14] MEDS ORDERED: Piperacill/Tazo 4.5gm in Dex 4.5 GM/100 ML BAG IV STA (09:01)
[2018-02-14] MEDS ORDERED: Albuterol 0.083% Inhal Sol (2.5 mg/3 mL) UD IH STA (09:02)
[2018-02-14] MEDS ORDERED: Piperacillin/Tazobact 3.375 gm 0 ML IVPB ONE (09:11)
--- NOTE | 2018-02-14 09:56 | RAD ---
HISTORY: Sepsis Patient COMPARISON: 01/28/2018. FINDINGS: LUNGS: The lungs are clear. PLEURA: There is blunting of the left costophrenic angle, no pneumothorax apparent. CARDIOVASCULAR: The heart is normal in size. Atherosclerotic aortic arch calcifications are present. OSSEOUS STRUCTURES: No significant abnormalities. VISUALIZED UPPER ABDOMEN: Normal. OTHER FINDINGS: None. IMPRESSION: Suspect small left pleural effusion.
[2018-02-14] MEDS ORDERED: Albuterol 0.083% Inhal Sol (2.5 mg/3 mL) UD ONE (10:19)
[2018-02-14] MEDS ORDERED: Vancomycin 125 MG/5 ML SOLN (ORAL/RECTAL) PO SCH (11:00)
--- NOTE | 2018-02-14 11:23 | CP.PCM.PN ---
Subjective - Date & Time of Evaluation Date of Evaluation: 02/14/18 Time of Evaluation: 11:08 - Subjective Subjective: Medicine progress note for Dr. Sheldon's service Patient is a 77 year old female with PMHx of ulcerative colitis who was recently hospitalized for colitis flare and discharged on 02/03. Patient states she felt fine on discharge and saw Dr. Lemus as outpatient for follow up of her colitis and was feeling well. Patient states that yesterday evening she began to feel unwell and had decreased appetite. She states that she started having shaking chills yesterday evening. She reports fever this morning of 100.9 and took Tylenol with some relief. Patient denies nausea, vomiting, abdominal pain, chest pain, cough, shortness of breath. Patient admits to small amount of diarrhea this morning. Home meds: primidone 50mg BID, questran TID, prednisone 10mg was presribed on x 10days (completed), flagyl 500q8 prescribed 02/03 x 7 days (completed), klonopin 0.5mg Q12h, pamelor 25mg PO BID, lialda 800 BID Objective - Vital Signs/Intake and Output Vital Signs (last 24 hours): Temp Pulse Resp BP Pulse Ox 99.9 F H 100 H 18 129/51 L 99 02/14/18 07:42 02/14/18 10:21 02/14/18 10:21 02/14/18 10:21 02/14/18 11:02 - Medications Medications: Current Medications Cholestyramine Resin (Questran) 4 gm PO TID [facility] Loperamide HCl (Imodium) 2 mg PO DAILY PRN PRN Reason: Diarrhea Mesalamine (Delzicol Dr) 1,600 mg PO TID [facility] Nortriptyline HCl (Pamelor) 25 mg PO BID [facility] Saccharomyces Boulardii (Florastor) 250 mg PO TID [facility] - Labs Labs: 02/14/18 08:03 02/14/18 08:03 PT 13.1 SECONDS (9.7-12.2) H 02/14/18 08:27 INR 1.2 02/14/18 08:27 APTT 29 SECONDS (21-34) 02/14/18 08:27 - Constitutional Appears: No Acute Distress - Head Exam Head Exam: ATRAUMATIC, NORMOCEPHALIC - Eye Exam Eye Exam: EOMI - ENT Exam ENT Exam: Mucous Membranes Moist - Neck Exam Neck Exam: absent: Lymphadenopathy - Respiratory Exam Respiratory Exam: Clear to Ausculation Bilateral, NORMAL BREATHING PATTERN - Cardiovascular Exam Cardiovascular Exam: +S1, +S2 - GI/Abdominal Exam GI & Abdominal Exam: Soft, Normal Bowel Sounds. absent: Distended, Firm, Guarding, Rigid, Tenderness - Extremities Exam Extremities Exam: Normal Inspection. absent: Calf Tenderness, Pedal Edema - Neurological Exam Neurological Exam: Alert, Awake - Psychiatric Exam Psychiatric exam: Normal Affect - Skin Skin Exam: Warm Assessment and Plan - Assessment and Plan (Free Text) Assessment: Leukocytosis with bandemia blood, urine, throat cultures collected in ED, f/u results influenza negative will check procalcitonin lactate 1.7, within normal limits patient given fluid bolus in ED, will continue maintenance fluids CXR with possible RLL infiltrate, will check CT chest, rule out possible HCAP patient on vancomycin 1g q12h, zosyn 3.375g q6h, azithromycin 500mg IVPB daily for atypical coverage ID, Dr. Summers consulted- help appreciated History of ulcerative colitis patient takes Lialda (mesalamine) at home, NF here continue mesalamine 1600mg PO TID continue Cholestyramine 4g PO TID as per GI continue imodium 2mg PO daily prn Peripheral neuropathy restart home meds: nortriptyline 25mg PO BID Prophylactic measure protonix 40mg IV daily lovenox 40sc daily management as per Dr. Sheldon
[2018-02-14] MEDS ORDERED: Sodium Chloride 0.9% 1,000 ML IV SCH (11:30)
[2018-02-14] MEDS ORDERED: Azithromycin 500 MG in Sodium Chloride 0.9% 250 ML IVPB SCH (11:30)
[2018-02-14] MEDS: Piperacill/Tazo 3.375gm in Dex 3.375 GM/50 ML BAG IVPB SCH ×3 (11:31→22:36)
[2018-02-14] MEDS: Magnesium Sulfate 1 gm in D5W 1 GM/100 ML BAG IVPB SCH ×2 (12:33→13:45)
[2018-02-14 13:02] LABS: URINE BILIRUBIN NEGATIVE (NEGATIVE); URINE BLOOD 1+ (NEGATIVE); URINE CLARITY Clear (Clear); URINE COLOR Straw (YELLOW); URINE GLUCOSE (UA) NORMAL (Normal); URINE LEUKOCYTE ESTERASE NEG Leu/uL (Negative); URINE PROTEIN NEGATIVE (NEGATIVE); URINE UROBILINOGEN NORMAL mg/dL (0.2-1.0)
--- NOTE | 2018-02-14 13:28 | CT ---
PROCEDURE: CT Chest without contrast HISTORY: suspected pneumonia COMPARISON: Portable chest 02/14/2018. TECHNIQUE: Contiguous axial images were obtained through the chest without intravenous contrast enhancement. Sagittal and coronal reconstructions were performed. Radiation dose (DLP): 383.69 mGy-cm. This CT exam was performed using one or more of the following dose reduction techniques: Automated exposure control, adjustment of the mA and/or kV according to patient size, and/or use of iterative reconstruction technique. FINDINGS: LUNGS: Limited bilateral basilar dependent atelectasis appreciated without definite alveolitis. The central airways appear clear no definitive mass is identified bilaterally. MEDIASTINUM: Unremarkable thoracic aorta. No aneurysm. Normal sized heart. Main pulmonary artery unremarkable. No vascular congestion. Shotty mediastinal lymph nodes are identified which are predominate paratracheal. No gross lymphadenopathy identified. . PLEURA: No pleural fluid. No pneumothorax. BONES: No fracture. No destructive lesion. UPPER ABDOMEN: Grossly unremarkable. OTHER FINDINGS: None. IMPRESSION: Limited bilateral basilar dependent atelectasis identified without definite alveolitis, pleural or pericardial effusion. Cardiac size appears normal.
[2018-02-14] MEDS: Enoxaparin 40 mg Syringe SC SCH (14:57)
[2018-02-14] MEDS: Saccharomyces Boulardi 250 mg Cap PO SCH ×2 (14:57→18:09)
[2018-02-14] MEDS: metroNIDAZOLE IV 500 mg/100 ml 500 MG/100 ML BAG IVPB SCH (17:00)
[2018-02-14 17:21] LABS: ALB/GLOB RATIO 0.9 (1.0-2.1); ALBUMIN 2.5 g/dL (3.5-5.0); ALT/SGPT 21 U/L (9-52); AST/SGOT 21 U/L (14-36); BLOOD UREA NITROGEN 9 mg/dL (7-17); CALCIUM 7.1 mg/dl (8.6-10.4); GFR AFRICAN-AMERICAN > 60; GFR NON-AFRICAN AMERICAN > 60
--- NOTE | 2018-02-14 18:20 | CP.PCM.CON ---
History of Present Illness - History of Present Illness History of Present Illness: 77 year old female with history of UC, recently discharged from [facility] ( 02/03/18 ) with Dx: Colitis, UC, (+) HepA. As per pt and family member, pt gradually developed chills, tactile fever for past 2-3 days associated with weakness. Otherwise, pt denies severe headache, dizziness, visual changes, sore throat, drooling, neck pain, cough, CP, SOB, dyspnea, wheezing, abd. pain, V/D, UTI sx, denies any other active complaints. At the time of evaluation, appears ill. IV antibiotics started await cultures Fr Allan on board for CT abd - Medical History PMH: Crohn's Disease Denies: Depression, Diverticulitis, Gastritis, Gall Bladder Disease, HIV, Kidney Stones, Pancreatitis - [facility] Procedures (01/28/18) (01/28/18) (01/28/18) (01/28/18) (01/28/18) CATARAC PHACOEMULS/ASPIR (09/11/13) CLOSED ENDOSCOPIC BIOPSY OF LARGE INTESTINE (02/11/14) CYSTOSCOPY NEC (11/27/06) ESOPHAGOGASTRODUODENOSCOPY [EGD] W/CLOSED BIOPSY (03/01/04) EXCISION OF RECTUM, ENDO, DIAGN (10/07/17) EXCISION OF SIGMOID COLON, ENDO, DIAGN (10/07/17) FLEXIBLE SIGMOIDOSCOPY (03/26/03) INJECT/INFUSE NEC (03/16/06) INSERT LENS AT CATAR EXT (09/11/13) MAGNETIC RESONANCE IMAGING OF SPINAL CANAL (11/28/06) REMOV URETERAL DRAIN (11/27/06) RETROGRADE PYELOGRAM (07/07/14) URETERAL CATHETERIZATION (07/07/14) Past Patient History - Infectious Disease Hx of Infectious Diseases: None - Tetanus Immunizations Tetanus Immunization: Unknown - Past Medical History & Family History Past Medical History?: Yes - Past Social History Smoking Status: Former Smoker - CARDIAC Hx Cardiac Disorders: No - PULMONARY Hx Respiratory Disorders: No - NEUROLOGICAL Hx Neurological Disorder: No - HEENT Hx HEENT Problems: No - RENAL Hx Chronic Kidney Disease: No - ENDOCRINE/METABOLIC Hx Endocrine Disorders: No - HEMATOLOGICAL/ONCOLOGICAL Hx Blood Disorders: No - INTEGUMENTARY Hx Dermatological Problems: No - MUSCULOSKELETAL/RHEUMATOLOGICAL Hx Musculoskeletal Disorders: No Hx Falls: Yes - GASTROINTESTINAL Hx Colitis: Yes Hx Pancreatitis: No - GENITOURINARY/GYNECOLOGICAL Hx Genitourinary Disorders: No (Kidney stones last 2013) - PSYCHIATRIC Hx Psychophysiologic Disorder: No - SURGICAL HISTORY Hx Surgeries: No - ANESTHESIA Hx Anesthesia: No Hx Anesthesia Reactions: No Hx Malignant Hyperthermia: No Has any member of the family had a problem w/ anesthesia?: No Meds Allergies/Adverse Reactions: Allergies Allergy/AdvReac Type Severity Reaction Status Date / Time No Known Allergies Allergy Verified 02/22/17 13:09 - Medications Medications: Current Medications Acetaminophen (Tylenol 325mg Tab) 650 mg PO Q6 PRN PRN Reason: Fever >100.4 F Last Admin: 02/14/18 14:50 Dose: 650 mg Cholestyramine Resin (Questran) 4 gm PO TID [facility] Enoxaparin Sodium (Lovenox) 40 mg SC DAILY [facility] Last Admin: 02/14/18 14:57 Dose: 40 mg Piperacillin Sod/Tazobactam Sod (Zosyn 3.375 Gm Iv Premix) 3.375 gm in 50 mls @ 100 mls/hr IVPB Q6H [facility] PRN Reason: Protocol Last Admin: 02/14/18 18:06 Dose: 100 mls/hr Vancomycin HCl 1,000 mg/ (Sodium Chloride) 200 mls @ 133.333 mls/hr IVPB Q12H [facility] PRN Reason: Protocol Last Admin: 02/14/18 11:31 Dose: Not Given Sodium Chloride (Sodium Chloride 0.9%) 1,000 mls @ 100 mls/hr IV .Q10H [facility] Last Admin: 02/14/18 11:32 Dose: 100 mls/hr Metronidazole (Flagyl) 500 mg in 100 mls @ 100 mls/hr IVPB Q8H [facility] PRN Reason: Protocol Last Admin: 02/14/18 17:00 Dose: 100 mls/hr Loperamide HCl (Imodium) 2 mg PO DAILY PRN PRN Reason: Diarrhea Last Admin: 02/14/18 14:58 Dose: 2 mg Mesalamine (Delzicol Dr) 1,600 mg PO TID [facility] Nortriptyline HCl (Pamelor) 25 mg PO BID [facility] Pantoprazole Sodium (Protonix Inj) 40 mg IVP DAILY [facility] Saccharomyces Boulardii (Florastor) 250 mg PO TID [facility] Last Admin: 02/14/18 18:09 Dose: 250 mg Results - Vital Signs Recent Vital Signs: Last Vital Signs Temp 101.1 F H 02/14/18 15:00 Pulse 103 H 02/14/18 15:00 Resp 20 02/14/18 15:00 BP 93/59 L 02/14/18 15:00 Pulse Ox 95 02/14/18 15:00 - Labs Result Diagrams: 02/14/18 08:03 02/14/18 16:52 Labs: Laboratory Results - last 24 hr 02/14/18 02/14/18 02/14/18 08:03 08:03 08:14 WBC 13.0 H D RBC 3.54 L Hgb 11.7 Hct 34.3 MCV 96.9 MCH 33.1 H MCHC 34.1 RDW 13.1 Plt Count 189 MPV 9.0 Neut % (Auto) 88.4 H Lymph % (Auto) 6.5 L Shelby % (Auto) 4.7 Eos % (Auto) 0.0 Baso % (Auto) 0.4 Neut # (Auto) 11.5 H Lymph # (Auto) 0.8 L Shelby # (Auto) 0.6 Eos # (Auto) 0.0 Baso # (Auto) 0.0 Neutrophils % (Manual) 74 Band Neutrophils % 13 H* Lymphocytes % (Manual) 10 L Monocytes % (Manual) 3 Toxic Granulation Present Platelet Estimate Normal Large Platelets Present Basophilic Stippling Slight PT INR APTT pO2 30 VBG pH 7.42 VBG pCO2 47 VBG HCO3 27.9 VBG Total CO2 31.9 H VBG O2 Sat (Calc) 67.4 H VBG Base Excess 5.1 H VBG Potassium 2.5 L* Glucose 107 H Lactate 1.7 Crit Value Called To Dr mejia Crit Value Called By Rahul abdi greenhouse technician Crit Value Read Back Y Blood Gas Notified Time 818 Sodium 133 136.0 Potassium 3.3 L Chloride 95 L 98.0 Carbon Dioxide 27 Anion Gap 14 BUN 14 Creatinine 0.5 L Est GFR ( Amer) > 60 Est GFR (Non-Af Amer) > 60 Random Glucose 106 H Lactic Acid Calcium 8.1 L Phosphorus 3.7 Magnesium 1.3 L Total Bilirubin 1.0 AST 27 ALT 13 Alkaline Phosphatase 76 Troponin I 0.0480 Total Protein 6.8 Albumin 3.4 L Globulin 3.4 Albumin/Globulin Ratio 1.0 Procalcitonin Venous Blood Potassium 2.5 L* Urine Color Urine Clarity Urine pH Ur Specific Whiteside Urine Protein Urine Glucose (UA) Urine Ketones Urine Blood Urine Nitrate Urine Bilirubin Urine Urobilinogen Ur Leukocyte Esterase Urine WBC (Auto) Urine RBC (Auto) Influenza Typ A,B (EIA) Grp A Beta Strep Ag 02/14/18 02/14/18 02/14/18 08:25 08:27 12:45 WBC RBC Hgb Hct MCV MCH MCHC RDW Plt Count MPV Neut % (Auto) Lymph % (Auto) Shelby % (Auto) Eos % (Auto) Baso % (Auto) Neut # (Auto) Lymph # (Auto) Shelby # (Auto) Eos # (Auto) Baso # (Auto) Neutrophils % (Manual) Band Neutrophils % Lymphocytes % (Manual) Monocytes % (Manual) Toxic Granulation Platelet Estimate Large Platelets Basophilic Stippling PT 13.1 H INR 1.2 APTT 29 pO2 VBG pH VBG pCO2 VBG HCO3 VBG Total CO2 VBG O2 Sat (Calc) VBG Base Excess VBG Potassium Glucose Lactate Crit Value Called To Crit Value Called By Crit Value Read Back Blood Gas Notified Time Sodium Potassium Chloride Carbon Dioxide Anion Gap BUN Creatinine Est GFR ( Amer) Est GFR (Non-Af Amer) Random Glucose Lactic Acid Calcium Phosphorus Magnesium Total Bilirubin AST ALT Alkaline Phosphatase Troponin I Total Protein Albumin Globulin Albumin/Globulin Ratio Procalcitonin Venous Blood Potassium Urine Color Straw Urine Clarity Clear Urine pH 5.0 Ur Specific Whiteside 1.005 Urine Protein Negative Urine Glucose (UA) Normal Urine Ketones Negative Urine Blood 1+ H Urine Nitrate Negative Urine Bilirubin Negative Urine Urobilinogen Normal Ur Leukocyte Esterase Neg Urine WBC (Auto) 1 Urine RBC (Auto) 4 H Influenza Typ A,B (EIA) Negative for flu a/b Grp A Beta Strep Ag Negative 02/14/18 02/14/18 02/14/18 16:52 16:52 16:52 WBC RBC Hgb Hct MCV MCH MCHC RDW Plt Count MPV Neut % (Auto) Lymph % (Auto) Shelby % (Auto) Eos % (Auto) Baso % (Auto) Neut # (Auto) Lymph # (Auto) Shelby # (Auto) Eos # (Auto) Baso # (Auto) Neutrophils % (Manual) Band Neutrophils % Lymphocytes % (Manual) Monocytes % (Manual) Toxic Granulation Platelet Estimate Large Platelets Basophilic Stippling PT INR APTT pO2 VBG pH VBG pCO2 VBG HCO3 VBG Total CO2 VBG O2 Sat (Calc) VBG Base Excess VBG Potassium Glucose Lactate Crit Value Called To Crit Value Called By Crit Value Read Back Blood Gas Notified Time Sodium 134 Potassium 3.0 L Chloride 98 Carbon Dioxide 25 Anion Gap 14 BUN 9 Creatinine 0.6 L Est GFR ( Amer) > 60 Est GFR (Non-Af Amer) > 60 Random Glucose 112 H Lactic Acid 2.1 Calcium 7.1 L Phosphorus Magnesium 1.9 Total Bilirubin 0.6 AST 21 ALT 21 Alkaline Phosphatase 75 Troponin I Total Protein 5.2 L Albumin 2.5 L D Globulin 2.7 Albumin/Globulin Ratio 0.9 L Procalcitonin 3.02 H Venous Blood Potassium Urine Color Urine Clarity Urine pH Ur Specific [place] Urine Protein Urine Glucose (UA) Urine Ketones Urine Blood Urine Nitrate Urine Bilirubin Urine Urobilinogen Ur Leukocyte Esterase Urine WBC (Auto) Urine RBC (Auto) Influenza Typ A,B (EIA) Grp A Beta Strep Ag
[2018-02-14] MEDS: Cholestyramine 4 gm/Pkt UD PO SCH (23:55)
[2018-02-15] MEDS: metroNIDAZOLE IV 500 mg/100 ml 500 MG/100 ML BAG IVPB SCH ×3 (02:14→16:37)
[2018-02-15] MEDS: Piperacill/Tazo 3.375gm in Dex 3.375 GM/50 ML BAG IVPB SCH ×3 (04:24→16:37)
--- NOTE | 2018-02-15 07:25 | HP ---
HISTORY OF PRESENT ILLNESS: A 77-year-old female in the hospital with high fever, chills, rigors for 24 hours. The patient came to the ER completely ill, advised admission in the hospital. The patient has history of ulcerative colitis for 40 years. The patient . SOCIAL HISTORY: The patient does not smoke or drink. PHYSICAL EXAMINATION GENERAL: The patient is awake, alert, and oriented. VITAL SIGNS: Temperature 98, pulse 90. HEENT: Within normal limits. NECK: Supple. CHEST: Symmetrical. HEART: Regular. ABDOMEN: Soft EXTREMITIES: No edema. IMPRESSION: . PLAN: Continue with IV antibiotics, supportive care. Valentin Sheldon MD
--- NOTE | 2018-02-15 07:46 | CP.PCM.PN ---
Subjective - Date & Time of Evaluation Date of Evaluation: 02/15/18 Time of Evaluation: 07:45 - Subjective Subjective: Progress Note for Dr. Sheldon's service She continues to have loose bowel movements overnight. Nursing corroborates that 2 episodes occurred overnight. She denies any abdominal pain. No fevers as per nursing. She was seen this morning by Dr. Lemus who recommends: stool O and P should be checked again for evidence of Strongyloides infection and continue mesalamine at 4.8 grams per day. Objective - Vital Signs/Intake and Output Vital Signs (last 24 hours): Temp Pulse Resp BP Pulse Ox 99.4 F 100 H 20 111/60 100 02/15/18 05:24 02/15/18 00:00 02/15/18 00:00 02/15/18 00:00 02/15/18 00:00 Intake and Output: 02/15/18 02/15/18 06:59 18:59 Intake Total 2024 Balance 2024 - Medications Medications: Current Medications Acetaminophen (Tylenol 325mg Tab) 650 mg PO Q4 PRN PRN Reason: Fever >100.4 F Last Admin: 02/15/18 04:24 Dose: 650 mg Cholestyramine Resin (Questran) 4 gm PO TID [facility] Last Admin: 02/14/18 23:55 Dose: 4 gm Enoxaparin Sodium (Lovenox) 40 mg SC DAILY [facility] Last Admin: 02/14/18 14:57 Dose: 40 mg Piperacillin Sod/Tazobactam Sod (Zosyn 3.375 Gm Iv Premix) 3.375 gm in 50 mls @ 100 mls/hr IVPB Q6H [facility] PRN Reason: Protocol Last Admin: 02/15/18 04:24 Dose: 100 mls/hr Vancomycin HCl 1,000 mg/ (Sodium Chloride) 200 mls @ 133.333 mls/hr IVPB Q12H [facility] PRN Reason: Protocol Last Admin: 02/15/18 00:00 Dose: 133.333 mls/hr Metronidazole (Flagyl) 500 mg in 100 mls @ 100 mls/hr IVPB Q8H [facility] PRN Reason: Protocol Last Admin: 02/15/18 02:14 Dose: 100 mls/hr Potassium Chloride 20 meq/ (Sodium Chloride) 1,010 mls @ 100 mls/hr IV .Q10H6M [facility] Last Admin: 02/15/18 05:26 Dose: Not Given Loperamide HCl (Imodium) 2 mg PO DAILY PRN PRN Reason: Diarrhea Last Admin: 02/14/18 14:58 Dose: 2 mg Mesalamine (Delzicol Dr) 1,600 mg PO TID [facility] Last Admin: 02/14/18 19:45 Dose: 1,600 mg Nortriptyline HCl (Pamelor) 25 mg PO BID [facility] Last Admin: 02/14/18 19:44 Dose: 25 mg Pantoprazole Sodium (Protonix Inj) 40 mg IVP DAILY [facility] Saccharomyces Boulardii (Florastor) 250 mg PO TID [facility] Last Admin: 02/14/18 18:09 Dose: 250 mg - Labs Labs: 02/14/18 08:03 02/14/18 16:52 PT 13.1 SECONDS (9.7-12.2) H 02/14/18 08:27 INR 1.2 02/14/18 08:27 APTT 29 SECONDS (21-34) 02/14/18 08:27 - Constitutional Appears: No Acute Distress, Other (fatigued/weak) - Head Exam Head Exam: ATRAUMATIC, NORMOCEPHALIC - Eye Exam Eye Exam: Normal appearance - ENT Exam ENT Exam: Mucous Membranes Dry - Respiratory Exam Respiratory Exam: Clear to Ausculation Bilateral, NORMAL BREATHING PATTERN - Cardiovascular Exam Cardiovascular Exam: REGULAR RHYTHM, +S1, +S2 - GI/Abdominal Exam GI & Abdominal Exam: Soft. absent: Guarding, Tenderness, Mass - Neurological Exam Neurological Exam: Alert, Awake, Oriented x3 - Skin Skin Exam: Dry, Warm Assessment and Plan - Assessment and Plan (Free Text) Plan: Leukocytosis with bandemia WBC 9.2 with 11 bands today blood, urine, throat cultures collected in ED, f/u results influenza negative procalcitonin- 3.02 lactate 1.7, within normal limits IVF CXR with possible RLL infiltrate. This was followed up by CT chest which does not show infiltrate. CT abdomen ordered -follow up results Patient originally on vancomycin 1g q12h, zosyn 3.375g q6h, azithromycin 500mg IVPB daily for atypical coverage. Azithromycin was discontinued following the results of the CT chest and Flagyl added for anaerobic coverage. Current abx: vancomycin 1g IV q12h zosyn 3.375g IV q6h Flagyl 500mg IV q8hrs ID, Dr. Summers consulted- recs appreciated Continue current abx Follow up cx's GI, Dr. 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 Sheldon All management as per Dr. Sheldon
[2018-02-15 07:56] LABS: BASO % 0.5 % (0.0-2.0); EOS % 0.1 % (0.0-4.0); HEMOGLOBIN 9.9 g/dL (11.0-16.0); LYMPH # 0.8 K/uL (1.0-4.3); LYMPH % 8.3 % (20.0-40.0); MEAN CELL VOLUME 96.9 fL (81.0-99.0); MEAN CORPUSCULAR HEMOGLOBIN 33.3 pg (27.0-31.0); MEAN CORPUSCULAR HGB CONC 34.3 g/dL (33.0-37.0); MEAN PLATELET VOLUME 9.1 fL (7.2-11.7); MONO # 0.6 K/uL (0.0-0.8); MONO % 6.3 % (0.0-10.0); NEUT # 7.8 K/uL (1.8-7.0); NEUT % 84.8 % (50.0-75.0); PLATELET COUNT 170 K/uL (130-400); RBC 2.99 Mil/uL (3.80-5.20); RED CELL DISTRIBUTION WIDTH 12.9 % (11.5-14.5); WHITE BLOOD COUNT 9.2 K/uL (4.8-10.8)
--- NOTE | 2018-02-15 08:01 | CP.PCM.CON ---
History of Present Illness - History of Present Illness History of Present Illness: This is a 77 year old woman with fever, chills, and weakness. Patient has a history of ulcerative colitis for more than ten years, involving primarily the left side of the colon, maintained on Lialda and Rowasa. She was hospitalized for diarrhea in September,, but colonoscopy 10/10/2017 showed no endoscopic or pathologic evidence of active colitis. A small adenomatous polyp was found incidentally. Patient was seen in the office in early December, at which time she was having ten loose bowel movements a day. A C difficile toxin gene CARLENE assay 12/20/2017 came back positive, and vancomycin was started. After the vancomycin, the frequency of the bowel movements improved to two or three times a day, and the fecal calprotectin declined from 164 to 115. Patient was readmitted 01/28/2018 with a two day history of frequent diarrhea with bleeding. Stool culture, ova and parasites, giardia antigen, C diff toxin , C diff CARLENE, cryptosporidia, cyclospora, isospora were all negative. Fecal calprotectin while in the hospital was 54, WNL. Repeat colonoscopy 01/30/2018 showed non-specific colitis involving the rectosigmoid, with special stains negative for CMV infection. The diarrhea gradually improved, and she was discharged on 02/03/2018. The medications on discharge included prednisone, metronidazole and cholestyramine. Patient noted sudden onset of chills and fever to 100.9 two days before this admission. She then developed diarrhea which became profuse and watery, almost every hour, including nocturnal diarrhea. She denies having bleeding or abdominal pain. She also denies having nausea, vomiting, heartburn, difficulty swallowing. She presented to the ER, where the temperature was 99.9. There was an elevated WBC count, 13,000, and a possible RML infiltrate, and she was admitted. Review of Systems - Constitutional Constitutional: Chills, Fever, Malaise, Weakness - EENT Eyes: absent: Change in Vision Ears: absent: Ear Pain Nose/Mouth/Throat: absent: Nasal Discharge, Nose Pain, Sore Throat - Cardiovascular Cardiovascular: absent: Chest Pain, Dyspnea - Respiratory Respiratory: absent: Cough, Dyspnea - Gastrointestinal Gastrointestinal: Diarrhea. absent: Abdominal Pain, Hematemesis, Hematochezia, Nausea, Vomiting - Musculoskeletal Musculoskeletal: absent: Back Pain, Neck Pain - Integumentary Integumentary: absent: Rash Past Patient History - Infectious Disease Hx of Infectious Diseases: None - Tetanus Immunizations Tetanus Immunization: Unknown - Past Medical History & Family History Past Medical History?: Yes - Past Social History Smoking Status: Former Smoker - CARDIAC Hx Cardiac Disorders: No - PULMONARY Hx Respiratory Disorders: No - NEUROLOGICAL Hx Neurological Disorder: No - HEENT Hx HEENT Problems: No - RENAL Hx Chronic Kidney Disease: No - ENDOCRINE/METABOLIC Hx Endocrine Disorders: No - HEMATOLOGICAL/ONCOLOGICAL Hx Blood Disorders: No - INTEGUMENTARY Hx Dermatological Problems: No - MUSCULOSKELETAL/RHEUMATOLOGICAL Hx Musculoskeletal Disorders: No Hx Falls: Yes - GASTROINTESTINAL Hx Colitis: Yes Hx Pancreatitis: No - GENITOURINARY/GYNECOLOGICAL Hx Genitourinary Disorders: No (Kidney stones last 2013) - PSYCHIATRIC Hx Psychophysiologic Disorder: No - SURGICAL HISTORY Hx Surgeries: No - ANESTHESIA Hx Anesthesia: No Hx Anesthesia Reactions: No Hx Malignant Hyperthermia: No Has any member of the family had a problem w/ anesthesia?: No Meds Allergies/Adverse Reactions: Allergies Allergy/AdvReac Type Severity Reaction Status Date / Time No Known Allergies Allergy Verified 02/22/17 13:09 - Medications Medications: Current Medications Acetaminophen (Tylenol 325mg Tab) 650 mg PO Q4 PRN PRN Reason: Fever >100.4 F Last Admin: 02/15/18 04:24 Dose: 650 mg Cholestyramine Resin (Questran) 4 gm PO TID [facility] Last Admin: 02/14/18 23:55 Dose: 4 gm Enoxaparin Sodium (Lovenox) 40 mg SC DAILY [facility] Last Admin: 02/14/18 14:57 Dose: 40 mg Piperacillin Sod/Tazobactam Sod (Zosyn 3.375 Gm Iv Premix) 3.375 gm in 50 mls @ 100 mls/hr IVPB Q6H [facility] PRN Reason: Protocol Last Admin: 02/15/18 04:24 Dose: 100 mls/hr Vancomycin HCl 1,000 mg/ (Sodium Chloride) 200 mls @ 133.333 mls/hr IVPB Q12H [facility] PRN Reason: Protocol Last Admin: 02/15/18 00:00 Dose: 133.333 mls/hr Metronidazole (Flagyl) 500 mg in 100 mls @ 100 mls/hr IVPB Q8H [facility] PRN Reason: Protocol Last Admin: 02/15/18 02:14 Dose: 100 mls/hr Potassium Chloride 20 meq/ (Sodium Chloride) 1,010 mls @ 100 mls/hr IV .Q10H6M [facility] Last Admin: 02/15/18 05:26 Dose: Not Given Loperamide HCl (Imodium) 2 mg PO DAILY PRN PRN Reason: Diarrhea Last Admin: 02/14/18 14:58 Dose: 2 mg Mesalamine (Delzicol Dr) 1,600 mg PO TID [facility] Last Admin: 02/14/18 19:45 Dose: 1,600 mg Nortriptyline HCl (Pamelor) 25 mg PO BID [facility] Last Admin: 02/14/18 19:44 Dose: 25 mg Pantoprazole Sodium (Protonix Inj) 40 mg IVP DAILY [facility] Saccharomyces Boulardii (Florastor) 250 mg PO TID [facility] Last Admin: 02/14/18 18:09 Dose: 250 mg Physical Exam - Head Exam Head Exam: ATRAUMATIC, NORMOCEPHALIC - Eye Exam Eye Exam: EOMI, PERRL - Neck Exam Neck exam: Negative for: Lymphadenopathy, Thyromegaly - Respiratory Exam Respiratory Exam: NORMAL BREATHING PATTERN. absent: Rales, Rhonchi, Wheezes - Cardiovascular Exam Cardiovascular Exam: REGULAR RHYTHM, +S1. absent: Gallop, Rubs, Systolic Murmur - GI/Abdominal Exam GI & Abdominal Exam: Normal Bowel Sounds, Soft. absent: Mass, Organomegaly, Tenderness - Rectal Exam Rectal Exam: Deferred - Extremities Exam Extremities exam: Negative for: calf tenderness, pedal edema Results - Vital Signs Recent Vital Signs: Last Vital Signs Temp 99.2 F 02/15/18 07:00 Pulse 80 02/15/18 07:00 Resp 18 02/15/18 07:00 BP 93/60 L 02/15/18 07:00 Pulse Ox 100 02/15/18 07:00 - Labs Result Diagrams: 02/15/18 07:46 02/14/18 16:52 Labs: Laboratory Results - last 24 hr 02/14/18 02/14/18 02/14/18 08:03 08:03 08:14 WBC 13.0 H D RBC 3.54 L Hgb 11.7 Hct 34.3 MCV 96.9 MCH 33.1 H MCHC 34.1 RDW 13.1 Plt Count 189 MPV 9.0 Neut % (Auto) 88.4 H Lymph % (Auto) 6.5 L [place] % (Auto) 4.7 Eos % (Auto) 0.0 Baso % (Auto) 0.4 Neut # (Auto) 11.5 H Lymph # (Auto) 0.8 L [place] # (Auto) 0.6 Eos # (Auto) 0.0 Baso # (Auto) 0.0 Neutrophils % (Manual) 74 Band Neutrophils % 13 H* Lymphocytes % (Manual) 10 L Monocytes % (Manual) 3 Toxic Granulation Present Platelet Estimate Normal Large Platelets Present Basophilic Stippling Slight PT INR APTT pO2 30 VBG pH 7.42 VBG pCO2 47 VBG HCO3 27.9 VBG Total CO2 31.9 H VBG O2 Sat (Calc) 67.4 H VBG Base Excess 5.1 H VBG Potassium 2.5 L* Glucose 107 H Lactate 1.7 Crit Value Called To Dr mejia Crit 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 Crit Value Read Back Y Blood Gas Notified Time 818 Sodium 133 136.0 Potassium 3.3 L Chloride 95 L 98.0 Carbon Dioxide 27 Anion Gap 14 BUN 14 Creatinine 0.5 L Est GFR ( Amer) > 60 Est GFR (Non-Af Amer) > 60 Random Glucose 106 H Lactic Acid Calcium 8.1 L Phosphorus 3.7 Magnesium 1.3 L Total Bilirubin 1.0 AST 27 ALT 13 Alkaline Phosphatase 76 Troponin I 0.0480 Total Protein 6.8 Albumin 3.4 L Globulin 3.4 Albumin/Globulin Ratio 1.0 Procalcitonin Venous Blood Potassium 2.5 L* Urine Color Urine Clarity Urine pH Ur Specific [place] Urine Protein Urine Glucose (UA) Urine Ketones Urine Blood Urine Nitrate Urine Bilirubin Urine Urobilinogen Ur Leukocyte Esterase Urine WBC (Auto) Urine RBC (Auto) Stool Leukocytes, Qual Influenza Typ A,B (EIA) Grp A Beta Strep Ag 02/14/18 02/14/18 02/14/18 08:25 08:27 08:45 WBC RBC Hgb Hct MCV MCH MCHC RDW Plt Count MPV Neut % (Auto) Lymph % (Auto) [place] % (Auto) Eos % (Auto) Baso % (Auto) Neut # (Auto) Lymph # (Auto) [place] # (Auto) Eos # (Auto) Baso # (Auto) Neutrophils % (Manual) Band Neutrophils % Lymphocytes % (Manual) Monocytes % (Manual) Toxic Granulation Platelet Estimate Large Platelets Basophilic Stippling PT 13.1 H INR 1.2 APTT 29 pO2 VBG pH VBG pCO2 VBG HCO3 VBG Total CO2 VBG O2 Sat (Calc) VBG Base Excess VBG Potassium Glucose Lactate Crit Value Called To Crit Value Called By Crit Value Read Back Blood Gas Notified Time Sodium Potassium Chloride Carbon Dioxide Anion Gap BUN Creatinine Est GFR ( Amer) Est GFR (Non-Af Amer) Random Glucose Lactic Acid Calcium Phosphorus Magnesium Total Bilirubin AST ALT Alkaline Phosphatase Troponin I Total Protein Albumin Globulin Albumin/Globulin Ratio Procalcitonin Venous Blood Potassium Urine Color Urine Clarity Urine pH Ur Specific [place] Urine Protein Urine Glucose (UA) Urine Ketones Urine Blood Urine Nitrate Urine Bilirubin Urine Urobilinogen Ur Leukocyte Esterase Urine WBC (Auto) Urine RBC (Auto) Stool Leukocytes, Qual Negative Influenza Typ A,B (EIA) Negative for flu a/b Grp A Beta Strep Ag Negative 02/14/18 02/14/18 02/14/18 12:45 16:52 16:52 WBC RBC Hgb Hct MCV MCH MCHC RDW Plt Count MPV Neut % (Auto) Lymph % (Auto) [place] % (Auto) Eos % (Auto) Baso % (Auto) Neut # (Auto) Lymph # (Auto) [place] # (Auto) Eos # (Auto) Baso # (Auto) Neutrophils % (Manual) Band Neutrophils % Lymphocytes % (Manual) Monocytes % (Manual) Toxic Granulation Platelet Estimate Large Platelets Basophilic Stippling PT INR APTT pO2 VBG pH VBG pCO2 VBG HCO3 VBG Total CO2 VBG O2 Sat (Calc) VBG Base Excess VBG Potassium Glucose Lactate Crit Value Called To Crit Value Called By Crit Value Read Back Blood Gas Notified Time Sodium 134 Potassium 3.0 L Chloride 98 Carbon Dioxide 25 Anion Gap 14 BUN 9 Creatinine 0.6 L Est GFR ( Amer) > 60 Est GFR (Non-Af Amer) > 60 Random Glucose 112 H Lactic Acid Calcium 7.1 L Phosphorus Magnesium 1.9 Total Bilirubin 0.6 AST 21 ALT 21 Alkaline Phosphatase 75 Troponin I Total Protein 5.2 L Albumin 2.5 L D Globulin 2.7 Albumin/Globulin Ratio 0.9 L Procalcitonin 3.02 H Venous Blood Potassium Urine Color Straw Urine Clarity Clear Urine pH 5.0 Ur Specific [place] 1.005 Urine Protein Negative Urine Glucose (UA) Normal Urine Ketones Negative Urine Blood 1+ H Urine Nitrate Negative Urine Bilirubin Negative Urine Urobilinogen Normal Ur Leukocyte Esterase Neg Urine WBC (Auto) 1 Urine RBC (Auto) 4 H Stool Leukocytes, Qual Influenza Typ A,B (EIA) Grp A Beta Strep Ag 02/14/18 16:52 WBC RBC Hgb Hct MCV MCH MCHC RDW Plt Count MPV Neut % (Auto) Lymph % (Auto) [place] % (Auto) Eos % (Auto) Baso % (Auto) Neut # (Auto) Lymph # (Auto) [place] # (Auto) Eos # (Auto) Baso # (Auto) Neutrophils % (Manual) Band Neutrophils % Lymphocytes % (Manual) Monocytes % (Manual) Toxic Granulation Platelet Estimate Large Platelets Basophilic Stippling PT INR APTT pO2 VBG pH VBG pCO2 VBG HCO3 VBG Total CO2 VBG O2 Sat (Calc) VBG Base Excess VBG Potassium Glucose Lactate Crit Value Called To Crit Value Called By Crit Value Read Back Blood Gas Notified Time Sodium Potassium Chloride Carbon Dioxide Anion Gap BUN Creatinine Est GFR ( Amer) Est GFR (Non-Af Amer) Random Glucose Lactic Acid 2.1 Calcium Phosphorus Magnesium Total Bilirubin AST ALT Alkaline Phosphatase Troponin I Total Protein Albumin Globulin Albumin/Globulin Ratio Procalcitonin Venous Blood Potassium Urine Color Urine Clarity Urine pH Ur Specific [place] Urine Protein Urine Glucose (UA) Urine Ketones Urine Blood Urine Nitrate Urine Bilirubin Urine Urobilinogen Ur Leukocyte Esterase Urine WBC (Auto) Urine RBC (Auto) Stool Leukocytes, Qual Influenza Typ A,B (EIA) Grp A Beta Strep Ag Assessment & Plan (1) Diarrhea Assessment and Plan: Patient has acute fever, weakness and diarrhea. Recent work up did not show evidence of an exacerbation of colitis or infection. In fact, the fecal calprotectin was normal. Because she had a documented episode of C diff in December, this should be checked again. Since fever is a prominent feature, stool O and P should be checked again for evidence of Strongyloides infection. Continue mesalamine at 4.8 grams per day. Will follow. Status: Acute Priority: High
[2018-02-15 08:16] LABS: ALB/GLOB RATIO 0.9 (1.0-2.1); ALBUMIN 2.3 g/dL (3.5-5.0); ALT/SGPT 25 U/L (9-52); AST/SGOT 24 U/L (14-36); BLOOD UREA NITROGEN 9 mg/dL (7-17); CALCIUM 7.1 mg/dl (8.6-10.4); GFR AFRICAN-AMERICAN > 60; GFR NON-AFRICAN AMERICAN > 60
[2018-02-15] MEDS ORDERED: Iohexol 240 (50 ml) PO ONE (08:30)
[2018-02-15 09:06] LABS: ANISOCYTOSIS SLIGHT; BANDS 11 % (0-2); LYMPHOCYTE 8 % (20-40); MONOCYTE 6 % (0-10); NEUTROPHIL 74 % (50-75); PLATELET ESTIMATE NORMAL (NORMAL); REACTIVE LYMPHOCYTES 1 % (0-0); TOTAL CELLS COUNTED 100; TOXIC GRANULATION PRESENT
[2018-02-15 09:07] LABS: HYPOCHROMIC SLIGHT; LARGE PLATELETS PRESENT; POLYCHROMIC SLIGHT
[2018-02-15 09:09] LABS: PLATELET CLUMPS PRESENT
[2018-02-15] MEDS: Enoxaparin 40 mg Syringe SC SCH (10:30)
[2018-02-15] MEDS: Cholestyramine 4 gm/Pkt UD PO SCH ×3 (10:32→17:53)
[2018-02-15] MEDS: Saccharomyces Boulardi 250 mg Cap PO SCH ×3 (10:33→17:52)
--- NOTE | 2018-02-15 13:46 | VASCLAB ---
PROCEDURE: Lower Extremity Venous Duplex Exam. HISTORY: pain B/L PRIORS: Lower extremity ultrasound dated 08/16/2017. TECHNIQUE: Bilateral common femoral, femoral, popliteal and posterior tibial, peroneal and great saphenous veins were evaluated. Flow was assessed with color Doppler, compressibility, assessment of phasic flow and augmentation response. Report prepared by Mandeep Richards, BS, RVT FINDINGS: RIGHT: 1. Common Femoral Vein: 1.1. Compressibility - Fully compressible: Thrombus - None : Flow - Phasic: Augmentation -Normal: Reflux - None. 2. Femoral Vein: 2.1. Compressibility - Fully compressible: Thrombus - None : Flow - Phasic: Augmentation -Normal: Reflux - None. 3. Popliteal Vein: 3.1. Compressibility - Fully compressible: Thrombus - None : Flow - Phasic: Augmentation -Normal: Reflux - None. 4. Posterior Tibial Vein: 4.1. Compressibility - Fully compressible: Thrombus - None: Flow - Phasic: Augmentation -Normal: Reflux - None. 5. Peroneal Vein: 5.1. Compressibility - Fully compressible: Thrombus - None: Flow - Phasic: Augmentation -Normal: Reflux - None. 6. Great Saphenous Vein: 6.1. Compressibility - Fully compressible: Thrombus - None: Flow - Phasic: Augmentation - Normal: Reflux - None. LEFT: 1. Common Femoral Vein: 1.1. Compressibility - Fully compressible: Thrombus - None: Flow - Phasic: Augmentation -Normal: Reflux - None. 2. Femoral Vein: 2.1. Compressibility - Fully compressible: Thrombus - None: Flow - Phasic: Augmentation -Normal: Reflux - None. 3. Popliteal Vein: 3.1. Compressibility - Fully compressible: Thrombus - None : Flow - Phasic: Augmentation -Normal: Reflux - None. 4. Posterior Tibial Vein: 4.1. Compressibility - Fully compressible: Thrombus - None: Flow - Phasic: Augmentation -Normal: Reflux - None. 5. Peroneal Vein: 5.1. Compressibility - Fully compressible: Thrombus - None: Flow - Phasic: Augmentation -Normal: Reflux - None. 6. Great Saphenous Vein: 6.1. Compressibility - Fully compressible: Thrombus - None: Flow - Phasic: Augmentation - Normal: Reflux - None. OTHER FINDINGS: Right: None significant. Left: None significant. IMPRESSION: Right: No evidence of deep or superficial vein thrombosis of the right lower extremity. Normal valve function noted of the right side. Left: No evidence of deep or superficial vein thrombosis of the left lower extremity. Normal valve function noted of the left side.
--- NOTE | 2018-02-15 16:20 | CT ---
PROCEDURE: CT Abdomen and Pelvis without intravenous contrast HISTORY: leukocytosis, bandemia, recent colitis treatment COMPARISON: 10/07/2017 TECHNIQUE: Without contrast.. Contrast Dose: 0 Radiation dose: Total exam DLP = Total exam DLP = 382.31 mGy-cm. This CT exam was performed using one or more of the following dose reduction techniques: Automated exposure control, adjustment of the mA and/or kV according to patient size, and/or use of iterative reconstruction technique. FINDINGS: LOWER THORAX: Trace bilateral pleural effusion with bilateral lower lobe compressive atelectasis. LIVER: Unremarkable. No gross lesion or ductal dilatation. GALLBLADDER AND BILE DUCTS: Unremarkable. PANCREAS: Unremarkable. No gross lesion or ductal dilatation. SPLEEN: Unremarkable. ADRENALS: Unremarkable. No mass. KIDNEYS AND URETERS: Unremarkable. No hydronephrosis. No solid mass. VASCULATURE: Unremarkable. No aortic aneurysm. BOWEL: Circumferential mural thickening of the entire colon with pericolonic stranding notably about the splenic flexure and descending colon. Findings consistent with braun colitis. No bowel obstruction. No other abnormal bowel loops are identified. APPENDIX: Unremarkable. Normal appendix. PERITONEUM: Unremarkable. No free fluid. No free air. LYMPH NODES: Shotty subcentimeter retroperitoneal lymphadenopathy. BLADDER: Unremarkable. REPRODUCTIVE: Status post hysterectomy BONES: No acute fracture. OTHER FINDINGS: None. IMPRESSION: Nonspecific braun colitis. Trace bilateral pleural effusion with bilateral lower lobe compressive atelectasis. No other significant abnormality.
--- NOTE | 2018-02-15 17:36 | CP.PCM.PN ---
Subjective - Date & Time of Evaluation Date of Evaluation: 02/15/18 Time of Evaluation: 09:00 - Subjective Subjective: seen by Dr Lemus fever and diarrhea are less today and no rigors Objective - Vital Signs/Intake and Output Vital Signs (last 24 hours): Temp Pulse Resp BP Pulse Ox 98.7 F 78 20 105/54 L 100 02/15/18 15:00 02/15/18 15:00 02/15/18 15:00 02/15/18 15:00 02/15/18 15:00 Intake and Output: 02/15/18 02/15/18 06:59 18:59 Intake Total 2024 1999 Balance 2024 1999 - Medications Medications: Current Medications Acetaminophen (Tylenol 325mg Tab) 650 mg PO Q4 PRN PRN Reason: Fever >100.4 F Last Admin: 02/15/18 04:24 Dose: 650 mg Cholestyramine Resin (Questran) 4 gm PO TID [facility] Last Admin: 02/15/18 13:56 Dose: 4 gm Enoxaparin Sodium (Lovenox) 40 mg SC DAILY [facility] Last Admin: 02/15/18 10:30 Dose: 40 mg Piperacillin Sod/Tazobactam Sod (Zosyn 3.375 Gm Iv Premix) 3.375 gm in 50 mls @ 100 mls/hr IVPB Q6H [facility] PRN Reason: Protocol Last Admin: 02/15/18 16:37 Dose: 100 mls/hr Vancomycin HCl 1,000 mg/ (Sodium Chloride) 200 mls @ 133.333 mls/hr IVPB Q12H [facility] PRN Reason: Protocol Last Admin: 02/15/18 12:51 Dose: 133.333 mls/hr Metronidazole (Flagyl) 500 mg in 100 mls @ 100 mls/hr IVPB Q8H [facility] PRN Reason: Protocol Last Admin: 02/15/18 16:37 Dose: 100 mls/hr Potassium Chloride 20 meq/ (Sodium Chloride) 1,010 mls @ 100 mls/hr IV .Q10H6M [facility] Last Admin: 02/15/18 05:26 Dose: Not Given Mesalamine (Delzicol Dr) 1,600 mg PO TID [facility] Last Admin: 02/15/18 13:55 Dose: 1,600 mg Nortriptyline HCl (Pamelor) 25 mg PO BID [facility] Last Admin: 02/15/18 10:32 Dose: 25 mg Pantoprazole Sodium (Protonix Inj) 40 mg IVP DAILY [facility] Last Admin: 02/15/18 10:32 Dose: 40 mg Saccharomyces Boulardii (Florastor) 250 mg PO TID [facility] Last Admin: 02/15/18 13:56 Dose: 250 mg - Labs Labs: 02/15/18 07:46 02/15/18 07:46 PT 13.1 SECONDS (9.7-12.2) H 02/14/18 08:27 INR 1.2 02/14/18 08:27 APTT 29 SECONDS (21-34) 02/14/18 08:27 - Constitutional Appears: Non-toxic, Cachectic, Chronically Ill - Head Exam Head Exam: ATRAUMATIC, NORMAL INSPECTION, NORMOCEPHALIC - Eye Exam Eye Exam: PERRL. absent: Scleral icterus - ENT Exam ENT Exam: Mucous Membranes Dry, Normal External Ear Exam - Neck Exam Neck Exam: absent: Lymphadenopathy - Respiratory Exam Respiratory Exam: Decreased Breath Sounds - Cardiovascular Exam Cardiovascular Exam: REGULAR RHYTHM - GI/Abdominal Exam GI & Abdominal Exam: Distended, Soft - Rectal Exam Rectal Exam: Deferred - Exam Exam: NORMAL INSPECTION - Extremities Exam Extremities Exam: absent: Pedal Edema - Back Exam Back Exam: absent: CVA tenderness (L), CVA tenderness (R) - Neurological Exam Neurological Exam: Alert, Awake, Oriented x3 - Psychiatric Exam Psychiatric exam: Anxious Assessment and Plan (1) Pneumonia Status: Acute (2) Bloody diarrhea Status: Acute (3) Colitis Status: Acute - Assessment and Plan (Free Text) Assessment: 77 yo female with hx of c diff is admitted with fever and bloody diarrhea as well as possible infiltrates on CXR since patient has had c diff in past - Ag/ Toxin and PCR may remain positive and are of limited diagnostic use here would recommend empiric rx for now
[2018-02-15] MEDS: Vancomycin 125 MG/5 ML SOLN (ORAL/RECTAL) PO SCH ×2 (19:24→22:51)
--- NOTE | 2018-02-15 22:39 | CARD ---
APPROVED REPORT EKG Measurement Heart [id number] MI [id number] <Conclusion> Normal sinus rhythm Nonspecific T wave abnormality Abnormal ECG
[2018-02-16] MEDS: Piperacill/Tazo 3.375gm in Dex 3.375 GM/50 ML BAG IVPB SCH ×3 (00:01→17:00)
[2018-02-16] MEDS: metroNIDAZOLE IV 500 mg/100 ml 500 MG/100 ML BAG IVPB SCH ×3 (00:48→17:30)
[2018-02-16] MEDS: Saccharomyces Boulardi 250 mg Cap PO SCH ×3 (10:19→18:05)
[2018-02-16] MEDS: Enoxaparin 40 mg Syringe SC SCH (10:19)
[2018-02-16] MEDS: Cholestyramine 4 gm/Pkt UD PO SCH ×3 (10:20→18:05)
[2018-02-16] MEDS: Vancomycin 125 MG/5 ML SOLN (ORAL/RECTAL) PO SCH ×4 (10:20→22:46)
--- NOTE | 2018-02-16 11:52 | CP.PCM.PN ---
Subjective - Date & Time of Evaluation Date of Evaluation: 02/16/18 Time of Evaluation: 11:48 - Subjective Subjective: COVERING DR CLARK Still with witnessed diarrhea though somewhat less frequency. Stool OB+ x 1. Other stool studies still pending. Objective - Vital Signs/Intake and Output Vital Signs (last 24 hours): Temp Pulse Resp BP Pulse Ox 97.9 F 72 20 109/60 100 02/16/18 08:54 02/16/18 08:54 02/16/18 08:54 02/16/18 08:54 02/16/18 08:54 Intake and Output: 02/16/18 02/16/18 06:59 18:59 Intake Total 150 Output Total 5 Balance 145 - Medications Medications: Current Medications Acetaminophen (Tylenol 325mg Tab) 650 mg PO Q4 PRN PRN Reason: Fever >100.4 F Last Admin: 02/15/18 04:24 Dose: 650 mg Cholestyramine Resin (Questran) 4 gm PO TID [facility] Last Admin: 02/16/18 10:20 Dose: 4 gm Enoxaparin Sodium (Lovenox) 40 mg SC DAILY [facility] Last Admin: 02/16/18 10:19 Dose: 40 mg Metronidazole (Flagyl) 500 mg in 100 mls @ 100 mls/hr IVPB Q8H [facility] PRN Reason: Protocol Last Admin: 02/16/18 09:19 Dose: 100 mls/hr Potassium Chloride 20 meq/ (Sodium Chloride) 1,010 mls @ 100 mls/hr IV .Q10H6M [facility] Last Admin: 02/16/18 07:57 Dose: 100 mls/hr Piperacillin Sod/Tazobactam Sod (Zosyn 3.375 Gm Iv Premix) 3.375 gm in 50 mls @ 100 mls/hr IVPB Q8H [facility] PRN Reason: Protocol Last Admin: 02/16/18 08:10 Dose: 100 mls/hr Mesalamine (Delzicol Dr) 1,600 mg PO TID [facility] Last Admin: 02/16/18 10:19 Dose: 1,600 mg Nortriptyline HCl (Pamelor) 25 mg PO BID [facility] Last Admin: 02/16/18 10:19 Dose: 25 mg Pantoprazole Sodium (Protonix Inj) 40 mg IVP DAILY [facility] Last Admin: 02/16/18 10:19 Dose: 40 mg Saccharomyces Boulardii (Florastor) 250 mg PO TID [facility] Last Admin: 02/16/18 10:19 Dose: 250 mg Vancomycin HCl (Vancocin (Oral Or Rectal Use)) 125 mg PO QID [facility] PRN Reason: Protocol Last Admin: 02/16/18 10:20 Dose: 125 mg - Labs Labs: 02/15/18 07:46 02/15/18 07:46 PT 13.1 SECONDS (9.7-12.2) H 02/14/18 08:27 INR 1.2 02/14/18 08:27 APTT 29 SECONDS (21-34) 02/14/18 08:27 - Constitutional Appears: No Acute Distress - Head Exam Head Exam: ATRAUMATIC, NORMOCEPHALIC - Respiratory Exam Respiratory Exam: NORMAL BREATHING PATTERN - Cardiovascular Exam Cardiovascular Exam: REGULAR RHYTHM - GI/Abdominal Exam GI & Abdominal Exam: Soft, Hyperactive Bowel Sounds. absent: Guarding, Tenderness, Mass, Rebound Assessment and Plan (1) Diarrhea of presumed infectious origin Assessment & Plan: Possible recurrent C diff infection being excluded. All stool studies still pending. Dr Griggs notes reviewed, recent colonoscopy negative for active UC. On antibiotics emperically per ID Status: Acute (2) Ulcerative colitis, rectosigmoid Assessment & Plan: On mesalamine. Recent colonoscopy excluded UC flair as source of diarrhea. Status: Chronic (3) C. difficile colitis Assessment & Plan: C diff studies pending. Status: Resolved (4) Occult blood positive stool Status: Acute
[2018-02-16] MEDS: Fluticasone Nasal 50 mcg/Spray NS SCH (22:48)
[2018-02-17] MEDS: Piperacill/Tazo 3.375gm in Dex 3.375 GM/50 ML BAG IVPB SCH ×2 (00:15→08:23)
[2018-02-17] MEDS: metroNIDAZOLE IV 500 mg/100 ml 500 MG/100 ML BAG IVPB SCH ×3 (00:52→17:00)
[2018-02-17 08:49] LABS: BASO % 0.6 % (0.0-2.0); EOS # 0.2 K/uL (0.0-0.7); EOS % 3.8 % (0.0-4.0); HEMOGLOBIN 10.7 g/dL (11.0-16.0); LYMPH # 1.3 K/uL (1.0-4.3); LYMPH % 21.4 % (20.0-40.0); MEAN CELL VOLUME 97.3 fL (81.0-99.0); MEAN CORPUSCULAR HEMOGLOBIN 33.3 pg (27.0-31.0); MEAN CORPUSCULAR HGB CONC 34.2 g/dL (33.0-37.0); MEAN PLATELET VOLUME 9.4 fL (7.2-11.7); MONO # 0.5 K/uL (0.0-0.8); MONO % 8.5 % (0.0-10.0); NEUT # 4.1 K/uL (1.8-7.0); NEUT % 65.7 % (50.0-75.0); RBC 3.23 Mil/uL (3.80-5.20); RED CELL DISTRIBUTION WIDTH 12.9 % (11.5-14.5); WHITE BLOOD COUNT 6.3 K/uL (4.8-10.8)
[2018-02-17 09:12] LABS: ALB/GLOB RATIO 0.9 (1.0-2.1); ALBUMIN 2.7 g/dL (3.5-5.0); ALT/SGPT 10 U/L (9-52); AST/SGOT 19 U/L (14-36); BLOOD UREA NITROGEN 4 mg/dL (7-17); CALCIUM 7.8 mg/dl (8.6-10.4); GFR AFRICAN-AMERICAN > 60; GFR NON-AFRICAN AMERICAN > 60
[2018-02-17] MEDS: Fluticasone Nasal 50 mcg/Spray NS SCH (09:59)
[2018-02-17] MEDS: Saccharomyces Boulardi 250 mg Cap PO SCH ×3 (09:59→18:29)
[2018-02-17] MEDS: Cholestyramine 4 gm/Pkt UD PO SCH ×3 (10:00→18:30)
[2018-02-17] MEDS: Enoxaparin 40 mg Syringe SC SCH (10:00)
[2018-02-17] MEDS: Vancomycin 125 MG/5 ML SOLN (ORAL/RECTAL) PO SCH ×4 (11:00→22:41)
--- NOTE | 2018-02-17 11:03 | CP.PCM.PN ---
Subjective - Date & Time of Evaluation Date of Evaluation: 02/17/18 Time of Evaluation: 11:01 - Subjective Subjective: COVERING DR CLARK Patient reports continued watery diarrhea all night and all morning. No pain, fever or chills. Stool studies still pending from Sunday. Objective - Vital Signs/Intake and Output Vital Signs (last 24 hours): Temp Pulse Resp BP Pulse Ox 98.5 F 76 20 120/78 96 02/17/18 09:14 02/17/18 09:14 02/17/18 09:14 02/17/18 09:14 02/17/18 09:14 Intake and Output: 02/17/18 02/17/18 06:59 18:59 Intake Total 250 Output Total 4 Balance 246 - Medications Medications: Current Medications Acetaminophen (Tylenol 325mg Tab) 650 mg PO Q4 PRN PRN Reason: Fever >100.4 F Last Admin: 02/15/18 04:24 Dose: 650 mg Cholestyramine Resin (Questran) 4 gm PO TID [facility] Last Admin: 02/17/18 10:00 Dose: 4 gm Enoxaparin Sodium (Lovenox) 40 mg SC DAILY [facility] Last Admin: 02/17/18 10:00 Dose: 40 mg Fluticasone Propionate (Flonase) 2 spr NS DAILY [facility] Last Admin: 02/17/18 09:59 Dose: 2 sprays Metronidazole (Flagyl) 500 mg in 100 mls @ 100 mls/hr IVPB Q8H [facility] PRN Reason: Protocol Last Admin: 02/17/18 09:59 Dose: 100 mls/hr Potassium Chloride 20 meq/ (Sodium Chloride) 1,010 mls @ 100 mls/hr IV .Q10H6M [facility] Last Admin: 02/17/18 04:05 Dose: 100 mls/hr Piperacillin Sod/Tazobactam Sod (Zosyn 3.375 Gm Iv Premix) 3.375 gm in 50 mls @ 100 mls/hr IVPB Q8H [facility] PRN Reason: Protocol Last Admin: 02/17/18 08:23 Dose: 100 mls/hr Mesalamine (Delzicol Dr) 1,600 mg PO TID [facility] Last Admin: 02/17/18 10:00 Dose: 1,600 mg Nortriptyline HCl (Pamelor) 25 mg PO BID [facility] Last Admin: 02/17/18 10:00 Dose: 25 mg Pantoprazole Sodium (Protonix Inj) 40 mg IVP DAILY [facility] Last Admin: 02/17/18 10:00 Dose: 40 mg Saccharomyces Boulardii (Florastor) 250 mg PO TID [facility] Last Admin: 02/17/18 09:59 Dose: 250 mg Vancomycin HCl (Vancocin (Oral Or Rectal Use)) 125 mg PO QID [facility] PRN Reason: Protocol Last Admin: 02/16/18 22:46 Dose: 125 mg Zolpidem Tartrate (Ambien) 5 mg PO PRN PRN Reason: Insomnia Last Admin: 02/16/18 22:46 Dose: 5 mg - Labs Labs: 02/17/18 08:40 02/17/18 08:40 PT 13.1 SECONDS (9.7-12.2) H 02/14/18 08:27 INR 1.2 02/14/18 08:27 APTT 29 SECONDS (21-34) 02/14/18 08:27 - Constitutional Appears: No Acute Distress - Head Exam Head Exam: ATRAUMATIC, NORMOCEPHALIC - Respiratory Exam Respiratory Exam: Clear to Ausculation Bilateral, NORMAL BREATHING PATTERN - Cardiovascular Exam Cardiovascular Exam: REGULAR RHYTHM - GI/Abdominal Exam GI & Abdominal Exam: Soft, Hyperactive Bowel Sounds. absent: Distended, Guarding, Tenderness, Mass, Rebound - Extremities Exam Extremities Exam: Normal Inspection Assessment and Plan (1) Diarrhea of presumed infectious origin Assessment & Plan: Diarrhea persists. Stool studies pending as ordered by GI and ID previously Continue supportive care. On emperic abx per ID. Status: Acute (2) Ulcerative colitis, rectosigmoid Assessment & Plan: On Mesalamine. No IBD flair found as source for diarrhea several weeks ago. Status: Chronic (3) C. difficile colitis Assessment & Plan: C diff studies still pending. On emperic Rx per ID. Status: Resolved (4) Occult blood positive stool Assessment & Plan: Hgb=10.7 today. No overt bleeding. Status: Acute
--- NOTE | 2018-02-17 15:54 | CP.PCM.PN ---
Subjective - Date & Time of Evaluation Date of Evaluation: 02/17/18 Time of Evaluation: 06:00 - Subjective Subjective: afebrile c/o diarrhea Objective - Vital Signs/Intake and Output Vital Signs (last 24 hours): Temp Pulse Resp BP Pulse Ox 98.5 F 76 20 120/78 96 02/17/18 09:14 02/17/18 09:14 02/17/18 09:14 02/17/18 09:14 02/17/18 09:14 Intake and Output: 02/17/18 02/17/18 06:59 18:59 Intake Total 250 1200 Output Total 4 Balance 246 1200 - Medications Medications: Current Medications Acetaminophen (Tylenol 325mg Tab) 650 mg PO Q4 PRN PRN Reason: Fever >100.4 F Last Admin: 02/15/18 04:24 Dose: 650 mg Cholestyramine Resin (Questran) 4 gm PO TID [facility] Last Admin: 02/17/18 14:40 Dose: 4 gm Enoxaparin Sodium (Lovenox) 40 mg SC DAILY [facility] Last Admin: 02/17/18 10:00 Dose: 40 mg Fluticasone Propionate (Flonase) 2 spr NS DAILY [facility] Last Admin: 02/17/18 09:59 Dose: 2 sprays Metronidazole (Flagyl) 500 mg in 100 mls @ 100 mls/hr IVPB Q8H [facility] PRN Reason: Protocol Last Admin: 02/17/18 09:59 Dose: 100 mls/hr Potassium Chloride 20 meq/ (Sodium Chloride) 1,010 mls @ 100 mls/hr IV .Q10H6M [facility] Last Admin: 02/17/18 14:45 Dose: Not Given Piperacillin Sod/Tazobactam Sod (Zosyn 3.375 Gm Iv Premix) 3.375 gm in 50 mls @ 100 mls/hr IVPB Q8H [facility] PRN Reason: Protocol Last Admin: 02/17/18 08:23 Dose: 100 mls/hr Mesalamine (Delzicol Dr) 1,600 mg PO TID [facility] Last Admin: 02/17/18 14:40 Dose: 1,600 mg Nortriptyline HCl (Pamelor) 25 mg PO BID [facility] Last Admin: 02/17/18 10:00 Dose: 25 mg Pantoprazole Sodium (Protonix Inj) 40 mg IVP DAILY [facility] Last Admin: 02/17/18 10:00 Dose: 40 mg Saccharomyces Boulardii (Florastor) 250 mg PO TID [facility] Last Admin: 02/17/18 14:40 Dose: 250 mg Vancomycin HCl (Vancocin (Oral Or Rectal Use)) 125 mg PO QID [facility] PRN Reason: Protocol Last Admin: 02/17/18 14:40 Dose: 125 mg Zolpidem Tartrate (Ambien) 5 mg PO HS PRN PRN Reason: Insomnia Last Admin: 02/16/18 22:46 Dose: 5 mg - Labs Labs: 02/17/18 08:40 02/17/18 08:40 PT 13.1 SECONDS (9.7-12.2) H 02/14/18 08:27 INR 1.2 02/14/18 08:27 APTT 29 SECONDS (21-34) 02/14/18 08:27 - Constitutional Appears: Non-toxic, Chronically Ill - Head Exam Head Exam: NORMOCEPHALIC - Eye Exam Eye Exam: PERRL - ENT Exam ENT Exam: Mucous Membranes Dry - Neck Exam Neck Exam: absent: Lymphadenopathy - Respiratory Exam Respiratory Exam: Decreased Breath Sounds - Cardiovascular Exam Cardiovascular Exam: REGULAR RHYTHM, +S1, +S2 - GI/Abdominal Exam GI & Abdominal Exam: Distended, Soft - Rectal Exam Rectal Exam: Deferred - Exam Exam: NORMAL INSPECTION - Extremities Exam Extremities Exam: absent: Pedal Edema, Tenderness - Back Exam Back Exam: absent: CVA tenderness (L), CVA tenderness (R) - Neurological Exam Neurological Exam: Alert, Awake, Normal Gait, Oriented x3 Neuro motor strength exam: Left Upper Extremity: 4, Right Upper Extremity: 4, Left Lower Extremity: 4, Right Lower Extremity: 4 - Psychiatric Exam Psychiatric exam: Normal Mood - Skin Skin Exam: Dry Assessment and Plan (1) Pneumonia Status: Acute (2) Bloody diarrhea Status: Acute (3) Colitis Status: Acute - Assessment and Plan (Free Text) Assessment: will d/c zosyn
--- NOTE | 2018-02-18 08:50 | CP.PCM.PN ---
Subjective - Date & Time of Evaluation Date of Evaluation: 02/18/18 Time of Evaluation: 10:11 - Subjective Subjective: PGY 2 Medicine Note- Dr. Sheldon's service Patient seen and examined in no apparent acute distress. Patient admits to several episodes of diarrhea. She admits to upwards of 8 times. She denies chest pain, headaches, nausea, vomiting at this time. Objective - Vital Signs/Intake and Output Vital Signs (last 24 hours): Temp Pulse Resp BP Pulse Ox 98.3 F 76 20 142/67 95 02/18/18 08:01 02/18/18 08:01 02/18/18 08:01 02/18/18 08:01 02/18/18 08:01 Intake and Output: 02/18/18 02/18/18 06:59 18:59 Intake Total 1150 Balance 1150 - Medications Medications: Current Medications Acetaminophen (Tylenol 325mg Tab) 650 mg PO Q4 PRN PRN Reason: Fever >100.4 F Last Admin: 02/15/18 04:24 Dose: 650 mg Cholestyramine Resin (Questran) 4 gm PO QID [facility] Enoxaparin Sodium (Lovenox) 40 mg SC DAILY [facility] Last Admin: 02/17/18 10:00 Dose: 40 mg Fluticasone Propionate (Flonase) 2 spr NS DAILY [facility] Last Admin: 02/17/18 09:59 Dose: 2 sprays Mesalamine (Delzicol Dr) 1,600 mg PO TID [facility] Last Admin: 02/17/18 18:30 Dose: 1,600 mg Nortriptyline HCl (Pamelor) 25 mg PO BID [facility] Last Admin: 02/17/18 18:29 Dose: 25 mg Pantoprazole Sodium (Protonix Inj) 40 mg IVP DAILY [facility] Last Admin: 02/17/18 10:00 Dose: 40 mg Saccharomyces Boulardii (Florastor) 250 mg PO TID [facility] Last Admin: 02/17/18 18:29 Dose: 250 mg Vancomycin HCl (Vancocin (Oral Or Rectal Use)) 125 mg PO QID [facility] PRN Reason: Protocol Last Admin: 02/17/18 22:41 Dose: 125 mg Zolpidem Tartrate (Ambien) 5 mg PO HS PRN PRN Reason: Insomnia Last Admin: 02/17/18 22:41 Dose: 5 mg - Labs Labs: 02/17/18 08:40 02/17/18 08:40 PT 13.1 SECONDS (9.7-12.2) H 02/14/18 08:27 INR 1.2 02/14/18 08:27 APTT 29 SECONDS (21-34) 02/14/18 08:27 - Constitutional Appears: Non-toxic, No Acute Distress - Head Exam Head Exam: ATRAUMATIC, NORMAL INSPECTION - Eye Exam Eye Exam: EOMI, Normal appearance, PERRL Pupil Exam: NORMAL ACCOMODATION - ENT Exam ENT Exam: Mucous Membranes Moist - Neck Exam Neck Exam: Full ROM - Respiratory Exam Respiratory Exam: NORMAL BREATHING PATTERN. absent: Wheezes - Cardiovascular Exam Cardiovascular Exam: +S1, +S2 - GI/Abdominal Exam GI & Abdominal Exam: Soft, Normal Bowel Sounds. absent: Tenderness - Extremities Exam Extremities Exam: Full ROM - Back Exam Back Exam: Full ROM - Neurological Exam Neurological Exam: Alert, Awake, Oriented x3 - Psychiatric Exam Psychiatric exam: Normal Affect, Normal Mood - Skin Skin Exam: Normal Color, Warm Assessment and Plan - Assessment and Plan (Free Text) Assessment: Diarrhea Of suspected infectious origin CT abdomen from 02/15 notes circumferential mural thickening of entire colon with pericolonic stranding suggestive of braun-colitis. Refer to complete report. C. diff studies- Negative Stool leukoctes negative. F/U stool O and P for Strongyloides infection Current Abx: Vancomycin 1g IV q12h zosyn 3.375g IV q6h Flagyl 500mg IV q8hrs On Florastor ID, Dr. Summers consulted- recs appreciated Continue current abx Follow up cx's GI, Dr. Lemus consulted- Patient for colonoscopy tomorrow. F/U recommendations History of ulcerative colitis Patient takes Lialda (Mesalamine) at home, NF here Continue Mesalamine 1600mg PO TID Continue Cholestyramine 4g PO QID as per GI Peripheral neuropathy On Nortriptyline 25mg PO BID Prophylactic measure Protonix 40mg IV daily Lovenox 40sc daily- Hold tonight Case discussed with Dr. Sheldon All management as per Dr. Sheldon
--- NOTE | 2018-02-18 09:24 | CP.PCM.PN ---
Subjective - Date & Time of Evaluation Date of Evaluation: 02/18/18 Time of Evaluation: 09:22 - Subjective Subjective: Patient continues to complain of diarrhea, four times this morning, up to every hour yesterday. Her appetite is poor. She denies having nausea, vomiting, abdominal pain. Objective - Vital Signs/Intake and Output Vital Signs (last 24 hours): Temp Pulse Resp BP Pulse Ox 98.3 F 76 20 142/67 95 02/18/18 08:01 02/18/18 08:01 02/18/18 08:01 02/18/18 08:01 02/18/18 08:01 Intake and Output: 02/18/18 02/18/18 06:59 18:59 Intake Total 1150 Balance 1150 - Medications Medications: Current Medications Acetaminophen (Tylenol 325mg Tab) 650 mg PO Q4 PRN PRN Reason: Fever >100.4 F Last Admin: 02/15/18 04:24 Dose: 650 mg Cholestyramine Resin (Questran) 4 gm PO QID [facility] Enoxaparin Sodium (Lovenox) 40 mg SC DAILY [facility] Last Admin: 02/17/18 10:00 Dose: 40 mg Fluticasone Propionate (Flonase) 2 spr NS DAILY [facility] Last Admin: 02/17/18 09:59 Dose: 2 sprays Mesalamine (Delzicol Dr) 1,600 mg PO TID [facility] Last Admin: 02/17/18 18:30 Dose: 1,600 mg Nortriptyline HCl (Pamelor) 25 mg PO BID [facility] Last Admin: 02/17/18 18:29 Dose: 25 mg Pantoprazole Sodium (Protonix Inj) 40 mg IVP DAILY [facility] Last Admin: 02/17/18 10:00 Dose: 40 mg Saccharomyces Boulardii (Florastor) 250 mg PO TID [facility] Last Admin: 02/17/18 18:29 Dose: 250 mg Vancomycin HCl (Vancocin (Oral Or Rectal Use)) 125 mg PO QID [facility] PRN Reason: Protocol Last Admin: 02/17/18 22:41 Dose: 125 mg Zolpidem Tartrate (Ambien) 5 mg PO HS PRN PRN Reason: Insomnia Last Admin: 02/17/18 22:41 Dose: 5 mg - Labs Labs: 02/17/18 08:40 02/17/18 08:40 PT 13.1 SECONDS (9.7-12.2) H 02/14/18 08:27 INR 1.2 02/14/18 08:27 APTT 29 SECONDS (21-34) 02/14/18 08:27 - Constitutional Appears: No Acute Distress - Head Exam Head Exam: ATRAUMATIC, NORMOCEPHALIC - Eye Exam Eye Exam: EOMI, PERRL - Neck Exam Neck Exam: absent: Lymphadenopathy, Thyromegaly - Respiratory Exam Respiratory Exam: NORMAL BREATHING PATTERN. absent: Rales, Rhonchi, Wheezes - Cardiovascular Exam Cardiovascular Exam: REGULAR RHYTHM, +S1, +S2. absent: Gallop, Rubs, Murmur - GI/Abdominal Exam GI & Abdominal Exam: Soft, Normal Bowel Sounds. absent: Tenderness, Mass, Organomegaly - Rectal Exam Rectal Exam: Deferred - Extremities Exam Extremities Exam: absent: Calf Tenderness Additional comments: 1+ LLE edema Assessment and Plan (1) Diarrhea Assessment & Plan: Patient continues to complain of diarrhea, despite treatment with IV metronidazole then PO vancomycin and cholestyramine. She has been afebrile for the past 72 hours. The WBC count is down to 6300. Stool for occult blood was positive, but leukocytes were negative. Stool C+S, O+P, C difficile toxin B PCR were all negative. Will check additional samples for ova and parasites and giardia antigen. Will request doppler of lower extremities. Consider repeat colonoscopy. Will make diet lactose free. Status: Acute
[2018-02-18] MEDS: Vancomycin 125 MG/5 ML SOLN (ORAL/RECTAL) PO SCH ×4 (09:34→22:52)
[2018-02-18] MEDS: Enoxaparin 40 mg Syringe SC SCH (09:34)
[2018-02-18] MEDS: Saccharomyces Boulardi 250 mg Cap PO SCH ×3 (09:35→18:36)
[2018-02-18] MEDS: Fluticasone Nasal 50 mcg/Spray NS SCH (09:35)
[2018-02-18] MEDS: Cholestyramine 4 gm/Pkt UD PO SCH ×4 (09:35→22:52)
--- NOTE | 2018-02-18 11:30 | CP.PCM.PN ---
Subjective - Date & Time of Evaluation Date of Evaluation: 02/18/18 Time of Evaluation: 10:00 - Subjective Subjective: events noted diarrhea persists Dr Lemus on board Objective - Vital Signs/Intake and Output Vital Signs (last 24 hours): Temp Pulse Resp BP Pulse Ox 98.3 F 76 20 142/67 95 02/18/18 08:01 02/18/18 08:01 02/18/18 08:01 02/18/18 08:01 02/18/18 08:01 Intake and Output: 02/18/18 02/18/18 06:59 18:59 Intake Total 1150 Balance 1150 - Medications Medications: Current Medications Acetaminophen (Tylenol 325mg Tab) 650 mg PO Q4 PRN PRN Reason: Fever >100.4 F Last Admin: 02/15/18 04:24 Dose: 650 mg Cholestyramine Resin (Questran) 4 gm PO QID [facility] Last Admin: 02/18/18 09:35 Dose: 4 gm Enoxaparin Sodium (Lovenox) 40 mg SC DAILY [facility] Last Admin: 02/18/18 09:34 Dose: 40 mg Fluticasone Propionate (Flonase) 2 spr NS DAILY [facility] Last Admin: 02/18/18 09:35 Dose: 2 sprays Mesalamine (Delzicol Dr) 1,600 mg PO TID [facility] Last Admin: 02/18/18 09:35 Dose: 1,600 mg Nortriptyline HCl (Pamelor) 25 mg PO BID [facility] Last Admin: 02/18/18 09:35 Dose: 25 mg Pantoprazole Sodium (Protonix Inj) 40 mg IVP DAILY [facility] Last Admin: 02/18/18 09:35 Dose: 40 mg Polyethylene Glycol/Electrolytes (Golytely) 2,000 ml PO ONCE ONE Stop: 02/18/18 18:01 Saccharomyces Boulardii (Florastor) 250 mg PO TID [facility] Last Admin: 02/18/18 09:35 Dose: 250 mg Vancomycin HCl (Vancocin (Oral Or Rectal Use)) 500 mg PO QID [facility] PRN Reason: Protocol Zolpidem Tartrate (Ambien) 5 mg PO HS PRN PRN Reason: Insomnia Last Admin: 02/17/18 22:41 Dose: 5 mg - Labs Labs: 02/17/18 08:40 04/08/18 08:40 PT 13.1 SECONDS (9.7-12.2) H 02/14/18 08:27 INR 1.2 02/14/18 08:27 APTT 29 SECONDS (21-34) 02/14/18 08:27 - Constitutional Appears: Non-toxic, Cachectic, Chronically Ill - Head Exam Head Exam: NORMOCEPHALIC - Eye Exam Eye Exam: PERRL - ENT Exam ENT Exam: Mucous Membranes Dry - Neck Exam Neck Exam: absent: Lymphadenopathy - Respiratory Exam Respiratory Exam: Decreased Breath Sounds - Cardiovascular Exam Cardiovascular Exam: REGULAR RHYTHM - GI/Abdominal Exam GI & Abdominal Exam: Distended - Rectal Exam Rectal Exam: Deferred - Exam Exam: NORMAL INSPECTION - Extremities Exam Extremities Exam: absent: Pedal Edema - Back Exam Back Exam: absent: CVA tenderness (L), CVA tenderness (R) - Neurological Exam Neurological Exam: Alert, Awake, CN II-XII Intact, Oriented x3 - Psychiatric Exam Psychiatric exam: Normal Mood - Skin Skin Exam: Dry Assessment and Plan (1) Pneumonia Status: Acute (2) Bloody diarrhea Status: Acute (3) Colitis Status: Acute - Assessment and Plan (Free Text) Assessment: Stool C+S, O+P, C difficile toxin B PCR were all negative. cultures neg GI to follow
[2018-02-18] MEDS: metroNIDAZOLE IV 500 mg/100 ml 500 MG/100 ML BAG IVPB SCH ×2 (14:05→22:52)
[2018-02-18] MEDS: Potassium Chl 20 mEq in NS 1,000 ML IV SCH (16:00)
[2018-02-18 16:37] LABS: BASO % 0.4 % (0.0-2.0); EOS # 0.2 K/uL (0.0-0.7); EOS % 4.3 % (0.0-4.0); HEMOGLOBIN 10.7 g/dL (11.0-16.0); LYMPH # 1.9 K/uL (1.0-4.3); LYMPH % 36.6 % (20.0-40.0); MEAN CORPUSCULAR HEMOGLOBIN 32.1 pg (27.0-31.0); MEAN CORPUSCULAR HGB CONC 33.4 g/dL (33.0-37.0); MEAN PLATELET VOLUME 8.9 fL (7.2-11.7); MONO # 0.6 K/uL (0.0-0.8); MONO % 12.4 % (0.0-10.0); NEUT # 2.4 K/uL (1.8-7.0); NEUT % 46.3 % (50.0-75.0); RBC 3.34 Mil/uL (3.80-5.20); RED CELL DISTRIBUTION WIDTH 13.2 % (11.5-14.5); WHITE BLOOD COUNT 5.1 K/uL (4.8-10.8)
[2018-02-18 16:50] LABS: ALB/GLOB RATIO 0.9 (1.0-2.1); ALBUMIN 2.8 g/dL (3.5-5.0); ALT/SGPT 19 U/L (9-52); AST/SGOT 14 U/L (14-36); BLOOD UREA NITROGEN < 2 mg/dL (7-17); CALCIUM 7.7 mg/dl (8.6-10.4); GFR AFRICAN-AMERICAN > 60; GFR NON-AFRICAN AMERICAN > 60
[2018-02-18] MEDS ORDERED: Peg-Electrolyte Oral Soln 4L (Golytely) PO ONE (18:00)
[2018-02-19] MEDS: Potassium Chl 20 mEq in NS 1,000 ML IV SCH ×4 (00:25→22:45)
[2018-02-19] MEDS: metroNIDAZOLE IV 500 mg/100 ml 500 MG/100 ML BAG IVPB SCH ×3 (05:57→21:25)
--- NOTE | 2018-02-19 07:05 | PN ---
DATE: 02/17/2018 Ms. Cano is complaining of diarrhea. Chest pain subsiding. Continue treatment. Supportive care. Valentin Sheldon MD
[2018-02-19 07:46] LABS: BASO % 0.5 % (0.0-2.0); EOS # 0.4 K/uL (0.0-0.7); EOS % 5.8 % (0.0-4.0); HEMOGLOBIN 11.1 g/dL (11.0-16.0); LYMPH # 1.9 K/uL (1.0-4.3); LYMPH % 30.7 % (20.0-40.0); MEAN CELL VOLUME 95.8 fL (81.0-99.0); MEAN CORPUSCULAR HEMOGLOBIN 32.9 pg (27.0-31.0); MEAN CORPUSCULAR HGB CONC 34.3 g/dL (33.0-37.0); MEAN PLATELET VOLUME 9.1 fL (7.2-11.7); MONO % 15.8 % (0.0-10.0); NEUT # 2.9 K/uL (1.8-7.0); NEUT % 47.2 % (50.0-75.0); NRBC % 0.2 % (0.0-2.0); RBC 3.38 Mil/uL (3.80-5.20); RED CELL DISTRIBUTION WIDTH 12.9 % (11.5-14.5); WHITE BLOOD COUNT 6.2 K/uL (4.8-10.8)
[2018-02-19 08:03] LABS: ALB/GLOB RATIO 0.9 (1.0-2.1); ALBUMIN 2.6 g/dL (3.5-5.0); ALT/SGPT 22 U/L (9-52); AST/SGOT 15 U/L (14-36); BLOOD UREA NITROGEN < 2 mg/dL (7-17); CALCIUM 7.9 mg/dl (8.6-10.4); GFR AFRICAN-AMERICAN > 60; GFR NON-AFRICAN AMERICAN > 60
[2018-02-19] MEDS: Vancomycin 125 MG/5 ML SOLN (ORAL/RECTAL) PO SCH ×4 (10:00→21:25)
[2018-02-19] MEDS ORDERED: Propofol 10 mg/ml Inj (20 ML) ONE ×2 (10:11→10:17)
[2018-02-19] MEDS ORDERED: Lidocaine Hydrochloride 5 ML INJ ONE (10:17)
--- NOTE | 2018-02-19 10:41 | PCM.SURG1 ---
Surgeon's Initial Post Op Note - Surgeon's Notes Surgeon: Joaquin Lemus MD Bench Hand Machine: none Type of Anesthesia: MAC Pre-Operative Diagnosis: Change in bowel habits, diarrhea, colitis Operative Findings: Rectal ulcer; diffuse, patchy erythema involving the entire colon with relative sparing of the right colon Post-Operative Diagnosis: Rectal ulcer; non-specific colitis Operation Performed: Colonoscopy with biopsy Specimen/Specimens Removed: right colon biopsy; left colon biopsy; biopsy of rectal ulcer Estimated Blood Loss: EBL {In ML}: 2 Date of Surgery/Procedure: 02/19/18 Time of Surgery/Procedure: 10:42
[2018-02-19] MEDS: Saccharomyces Boulardi 250 mg Cap PO SCH ×3 (11:22→17:55)
[2018-02-19] MEDS: Fluticasone Nasal 50 mcg/Spray NS SCH (11:22)
[2018-02-19] MEDS: Cholestyramine 4 gm/Pkt UD PO SCH ×4 (11:23→21:25)
[2018-02-19] MEDS ORDERED: Potassium Chloride 20 mEq/15 ml LIQ UD PO ONE (11:30)
--- NOTE | 2018-02-19 11:33 | CP.PCM.PN ---
Subjective - Date & Time of Evaluation Date of Evaluation: 02/19/18 Time of Evaluation: 09:00 - Subjective Subjective: PGY 2 Medicine Note- Dr. Sheldon's service. Patient seen and examined bedside. Patient complains of continues diarrhea through the evening. Patient to have colonoscopy performed today. Patient states she is hungry and would like to eat. Objective - Vital Signs/Intake and Output Vital Signs (last 24 hours): Temp Pulse Resp BP Pulse Ox 97.3 F L 69 16 141/68 100 02/19/18 11:15 02/19/18 11:15 02/19/18 11:15 02/19/18 11:15 02/19/18 11:15 Intake and Output: 02/19/18 02/19/18 06:59 18:59 Intake Total 2400 275 Output Total 6 Balance 2394 275 - Medications Medications: Current Medications Acetaminophen (Tylenol 325mg Tab) 650 mg PO Q4 PRN PRN Reason: Fever >100.4 F Last Admin: 02/15/18 04:24 Dose: 650 mg Cholestyramine Resin (Questran) 4 gm PO QID [facility] Last Admin: 02/19/18 11:23 Dose: Not Given Enoxaparin Sodium (Lovenox) 40 mg SC DAILY [facility] Last Admin: 02/18/18 09:34 Dose: 40 mg Fluticasone Propionate (Flonase) 2 spr NS DAILY [facility] Last Admin: 02/19/18 11:22 Dose: Not Given Metronidazole (Flagyl) 500 mg in 100 mls @ 100 mls/hr IVPB Q8 [facility] PRN Reason: Protocol Last Admin: 02/19/18 05:57 Dose: 100 mls/hr Potassium Chloride/Sodium Chloride (Potassium Chl 20 Meq In Ns) 1,000 mls @ 100 mls/hr IV .Q10H [facility] Last Admin: 02/19/18 05:00 Dose: 100 mls/hr Magnesium Sulfate/Dextrose (Magnesium Sulfate 1 Gm/100 Ml D5w) 1 gm in 100 mls @ 300 mls/hr IVPB Q30M [facility] Stop: 02/19/18 11:49 Mesalamine (Delzicol Dr) 1,600 mg PO TID [facility] Last Admin: 02/19/18 11:22 Dose: Not Given Nortriptyline HCl (Pamelor) 25 mg PO BID [facility] Last Admin: 02/19/18 11:22 Dose: Not Given Pantoprazole Sodium (Protonix Inj) 40 mg IVP DAILY [facility] Last Admin: 02/18/18 09:35 Dose: 40 mg Potassium Chloride (Potassium Chloride Oral Soln) 40 meq PO ONCE ONE Stop: 02/19/18 11:31 Saccharomyces Boulardii (Florastor) 250 mg PO TID [facility] Last Admin: 02/19/18 11:22 Dose: Not Given Vancomycin HCl (Vancocin (Oral Or Rectal Use)) 500 mg PO QID [facility] PRN Reason: Protocol Last Admin: 02/18/18 22:52 Dose: 500 mg Zolpidem Tartrate (Ambien) 5 mg PO HS PRN PRN Reason: Insomnia Last Admin: 02/17/18 22:41 Dose: 5 mg - Labs Labs: 02/19/18 07:34 02/19/18 07:34 PT 13.1 SECONDS (9.7-12.2) H 02/14/18 08:27 INR 1.2 02/14/18 08:27 APTT 29 SECONDS (21-34) 02/14/18 08:27 - Constitutional Appears: No Acute Distress - Head Exam Head Exam: ATRAUMATIC, NORMAL INSPECTION - Eye Exam Eye Exam: EOMI - ENT Exam ENT Exam: Mucous Membranes Moist - Neck Exam Neck Exam: Full ROM - Respiratory Exam Respiratory Exam: NORMAL BREATHING PATTERN - Cardiovascular Exam Cardiovascular Exam: +S1, +S2 - GI/Abdominal Exam GI & Abdominal Exam: Soft, Normal Bowel Sounds. absent: Tenderness - Extremities Exam Extremities Exam: Full ROM - Back Exam Back Exam: Full ROM - Neurological Exam Neurological Exam: Alert, Awake, Oriented x3 - Psychiatric Exam Psychiatric exam: Normal Affect, Normal Mood - Skin Skin Exam: Dry, Normal Color, Warm Assessment and Plan - Assessment and Plan (Free Text) Assessment: Diarrhea Of suspected infectious origin CT abdomen from 02/15 notes circumferential mural thickening of entire colon with pericolonic stranding suggestive of braun-colitis. Refer to complete report. C. diff studies- Negative Stool leukoctes negative. F/U stool studies for ova and parasitic etiologies Current Abx: Vancomycin 1g IV q12h Zosyn 3.375g IV q6h Flagyl 500mg IV q8hrs On Florastor ID, Dr. Summers consulted- recs appreciated Continue current abx Follow up cx's GI, Dr. Lemus consulted- F/U recommendations Colonoscopy performed 02/19- Rectal ulcer and non-specific colitis noted. Biopsy obtained. F/U results History of ulcerative colitis Patient takes Lialda (Mesalamine) at home, NF here Continue Mesalamine 1600mg PO TID Continue Cholestyramine 4g PO QID as per GI Peripheral neuropathy On Nortriptyline 25mg PO BID Electrolyte abnormality Low Potassium and Magnesium levels secondary to diarrhea Repleted Continue to monitor until stable Prophylactic measure Protonix 40mg IV daily Lovenox 40sc daily Case discussed with Dr. Sheldon All management as per Dr. Sheldon
[2018-02-19] MEDS: Magnesium Sulfate 1 gm in D5W 1 GM/100 ML BAG IVPB SCH ×2 (12:14→12:15)
[2018-02-19 15:55] VITALS: RESP 20
--- NOTE | 2018-02-19 16:31 | RAD ---
PROCEDURE: Radiographs of the chest and abdomen HISTORY: Abdominal pain COMPARISON: No prior. TECHNIQUE: AP radiograph of the chest, with supine radiograph of the abdomen. FINDINGS: CHEST: Lungs: Clear. Cardiovascular: Normal size heart. No pulmonary vascular congestion. Pleura: No pleural fluid. No pneumothorax. Other findings: None. ABDOMEN AND PELVIS: Bowel: Unremarkable bowel gas pattern. No evidence of mechanical obstruction. Bones: Unremarkable. Other findings: None. IMPRESSION: Unremarkable radiographs of chest and abdomen.
[2018-02-20] MEDS: metroNIDAZOLE IV 500 mg/100 ml 500 MG/100 ML BAG IVPB SCH ×3 (05:50→21:55)
[2018-02-20] MEDS: Potassium Chl 20 mEq in NS 1,000 ML IV SCH ×2 (06:38→13:56)
[2018-02-20 07:52] LABS: ALB/GLOB RATIO 0.9 (1.0-2.1); ALBUMIN 2.5 g/dL (3.5-5.0); ALT/SGPT 24 U/L (9-52); AST/SGOT 14 U/L (14-36); BLOOD UREA NITROGEN < 2 mg/dL (7-17); CALCIUM 7.5 mg/dl (8.6-10.4); GFR AFRICAN-AMERICAN > 60; GFR NON-AFRICAN AMERICAN > 60
--- NOTE | 2018-02-20 07:55 | CP.PCM.PN ---
Subjective - Date & Time of Evaluation Date of Evaluation: 02/20/18 Time of Evaluation: 07:54 - Subjective Subjective: PGY 2 Medicine Note- Dr. Sheldon's service. Patient seen and examined bedside. Nursing reports no episodes of diarrhea overnight. Last episode 5pm yesterday. Patient admits she "does not like the food here" and patient's family is bringing in outside food. She denies abdominal pain, n/v/d/c overnight. Patient reports she is breathing without difficult. Objective - Vital Signs/Intake and Output Vital Signs (last 24 hours): Temp Pulse Resp BP Pulse Ox 98 F 84 20 137/71 95 02/19/18 23:35 02/19/18 23:35 02/19/18 23:35 02/19/18 23:35 02/19/18 23:35 Intake and Output: 02/20/18 02/20/18 06:59 18:59 Intake Total 900 Balance 900 - Medications Medications: Current Medications Acetaminophen (Tylenol 325mg Tab) 650 mg PO Q4 PRN PRN Reason: Fever >100.4 F Last Admin: 02/20/18 00:03 Dose: 650 mg Cholestyramine Resin (Questran) 4 gm PO QID [facility] Last Admin: 02/19/18 21:25 Dose: 4 gm Enoxaparin Sodium (Lovenox) 40 mg SC DAILY [facility] Last Admin: 02/18/18 09:34 Dose: 40 mg Fluticasone Propionate (Flonase) 2 spr NS DAILY [facility] Last Admin: 02/19/18 11:22 Dose: Not Given Metronidazole (Flagyl) 500 mg in 100 mls @ 100 mls/hr IVPB Q8 [facility] PRN Reason: Protocol Last Admin: 02/20/18 05:50 Dose: 100 mls/hr Potassium Chloride/Sodium Chloride (Potassium Chl 20 Meq In Ns) 1,000 mls @ 100 mls/hr IV .Q10H [facility] Last Admin: 02/20/18 06:38 Dose: Not Given Mesalamine (Delzicol Dr) 1,600 mg PO TID [facility] Last Admin: 02/19/18 17:56 Dose: 1,600 mg Nortriptyline HCl (Pamelor) 25 mg PO BID [facility] Last Admin: 02/19/18 17:56 Dose: 25 mg Pantoprazole Sodium (Protonix Inj) 40 mg IVP DAILY [facility] Last Admin: 02/19/18 11:00 Dose: 40 mg Saccharomyces Boulardii (Florastor) 250 mg PO TID [facility] Last Admin: 02/19/18 17:55 Dose: 250 mg Vancomycin HCl (Vancocin (Oral Or Rectal Use)) 500 mg PO QID [facility] PRN Reason: Protocol Last Admin: 02/19/18 21:25 Dose: 500 mg Zolpidem Tartrate (Ambien) 5 mg PO PRN PRN Reason: Insomnia Last Admin: 02/20/18 00:03 Dose: 5 mg - Labs Labs: 02/19/18 07:34 02/20/18 07:20 PT 13.1 SECONDS (9.7-12.2) H 02/14/18 08:27 INR 1.2 02/14/18 08:27 APTT 29 SECONDS (21-34) 02/14/18 08:27 - Additional Findings Additional findings: - Constitutional Appears: No Acute Distress - Head Exam Head Exam: ATRAUMATIC, NORMAL INSPECTION - Eye Exam Eye Exam: EOMI - ENT Exam ENT Exam: Mucous Membranes Moist - Neck Exam Neck Exam: Full ROM - Respiratory Exam Respiratory Exam: NORMAL BREATHING PATTERN - Cardiovascular Exam Cardiovascular Exam: +S1, +S2 - GI/Abdominal Exam GI & Abdominal Exam: Soft, Normal Bowel Sounds. absent: Tenderness - Extremities Exam Extremities Exam: Full ROM - Back Exam Back Exam: Full ROM - Neurological Exam Neurological Exam: Alert, Awake, Oriented x3 - Psychiatric Exam Psychiatric exam: Normal Affect, Normal Mood - Skin Skin Exam: Dry, Normal Color, Warm Assessment and Plan - Assessment and Plan (Free Text) Plan: Diarrhea Of suspected infectious origin CT abdomen from 02/15 notes circumferential mural thickening of entire colon with pericolonic stranding suggestive of braun-colitis. Refer to complete report. C. diff studies- Negative Stool leukoctes negative. Stool studies negative for ova and parasitic etiologies Current Abx: Vancomycin 1g IV q12h Zosyn 3.375g IV q6h Flagyl 500mg IV q8hrs On Florastor ID, Dr. Summers consulted- recs appreciated Continue current abx GI, Dr. Lemus consulted Colonoscopy performed 02/19- Rectal ulcer and non-specific colitis noted. Biopsy obtained. -F/U results History of ulcerative colitis Patient takes Lialda (Mesalamine) at home, NF here Continue Mesalamine 1600mg PO TID Continue Cholestyramine 4g PO QID as per GI Peripheral neuropathy On Nortriptyline 25mg PO BID Electrolyte abnormality Low Potassium and Magnesium levels secondary to diarrhea Repleted Continue to monitor until stable Prophylactic measure Protonix 40mg IV daily Lovenox 40sc daily Disposition: Possible discharge pending GI reccs, diarrhea resolution. Case discussed with Dr. Sheldon All management as per Dr. Sheldon
[2018-02-20 08:00] LABS: BASO % 0.4 % (0.0-2.0); EOS # 0.4 K/uL (0.0-0.7); EOS % 8.4 % (0.0-4.0); HEMOGLOBIN 10.5 g/dL (11.0-16.0); LYMPH # 1.8 K/uL (1.0-4.3); LYMPH % 34.5 % (20.0-40.0); MEAN CELL VOLUME 95.5 fL (81.0-99.0); MEAN CORPUSCULAR HEMOGLOBIN 32.7 pg (27.0-31.0); MEAN CORPUSCULAR HGB CONC 34.3 g/dL (33.0-37.0); MEAN PLATELET VOLUME 8.6 fL (7.2-11.7); MONO # 0.9 K/uL (0.0-0.8); MONO % 16.4 % (0.0-10.0); NEUT # 2.1 K/uL (1.8-7.0); NEUT % 40.3 % (50.0-75.0); RBC 3.2 Mil/uL (3.80-5.20); WHITE BLOOD COUNT 5.3 K/uL (4.8-10.8)
[2018-02-20] MEDS: Saccharomyces Boulardi 250 mg Cap PO SCH ×3 (09:50→18:56)
[2018-02-20] MEDS: Enoxaparin 40 mg Syringe SC SCH (09:50)
[2018-02-20] MEDS: Cholestyramine 4 gm/Pkt UD PO SCH ×4 (09:51→21:56)
[2018-02-20] MEDS: Fluticasone Nasal 50 mcg/Spray NS SCH (09:52)
[2018-02-20] MEDS: Vancomycin 125 MG/5 ML SOLN (ORAL/RECTAL) PO SCH ×4 (09:54→21:55)
--- NOTE | 2018-02-20 16:00 | CP.PCM.PN ---
Subjective - Date & Time of Evaluation Date of Evaluation: 02/20/18 Time of Evaluation: 15:57 - Subjective Subjective: Patient complains of poor appetite. She denies having nausea or vomiting. She had only two bowel movements today, still loose. She denies having rectal bleeding. Objective - Vital Signs/Intake and Output Vital Signs (last 24 hours): Temp Pulse Resp BP Pulse Ox 97.8 F 84 20 125/72 97 02/20/18 08:50 02/20/18 08:50 02/20/18 08:50 02/20/18 08:50 02/20/18 08:50 Intake and Output: 02/20/18 02/20/18 06:59 18:59 Intake Total 900 260 Balance 900 260 - Medications Medications: Current Medications Acetaminophen (Tylenol 325mg Tab) 650 mg PO Q4 PRN PRN Reason: Fever >100.4 F Last Admin: 02/20/18 00:03 Dose: 650 mg Cholestyramine Resin (Questran) 4 gm PO QID [facility] Last Admin: 02/20/18 13:05 Dose: Not Given Enoxaparin Sodium (Lovenox) 40 mg SC DAILY [facility] Last Admin: 02/20/18 09:50 Dose: 40 mg Fluticasone Propionate (Flonase) 2 spr NS DAILY [facility] Last Admin: 02/20/18 09:52 Dose: 1 sprays Metronidazole (Flagyl) 500 mg in 100 mls @ 100 mls/hr IVPB Q8 [facility] PRN Reason: Protocol Last Admin: 02/20/18 13:55 Dose: 100 mls/hr Potassium Chloride/Sodium Chloride (Potassium Chl 20 Meq In Ns) 1,000 mls @ 100 mls/hr IV .Q10H [facility] Last Admin: 02/20/18 13:56 Dose: 100 mls/hr Potassium Chloride (Potassium Chloride 20 Meq/100 Ml) 20 meq in 100 mls @ 50 mls/hr IVPB Q2 [facility] Stop: 02/20/18 19:59 Last Admin: 02/20/18 15:13 Dose: 50 mls/hr Mesalamine (Delzicol Dr) 1,600 mg PO TID [facility] Last Admin: 02/20/18 13:04 Dose: 1,600 mg Nortriptyline HCl (Pamelor) 25 mg PO BID [facility] Last Admin: 02/20/18 09:51 Dose: 25 mg Pantoprazole Sodium (Protonix Inj) 40 mg IVP DAILY [facility] Last Admin: 02/20/18 09:49 Dose: 40 mg Potassium Chloride (K-Dur 20 Meq Er Tab) 40 meq PO ONCE ONE Stop: 02/21/18 15:01 Saccharomyces Boulardii (Florastor) 250 mg PO TID [facility] Last Admin: 02/20/18 14:44 Dose: 250 mg Vancomycin HCl (Vancocin (Oral Or Rectal Use)) 500 mg PO QID [facility] PRN Reason: Protocol Last Admin: 02/20/18 13:04 Dose: 500 mg Zolpidem Tartrate (Ambien) 5 mg PO HS PRN PRN Reason: Insomnia Last Admin: 02/20/18 00:03 Dose: 5 mg - Labs Labs: 02/20/18 07:20 02/20/18 07:20 PT 13.1 SECONDS (9.7-12.2) H 02/14/18 08:27 INR 1.2 02/14/18 08:27 APTT 29 SECONDS (21-34) 02/14/18 08:27 - Constitutional Appears: No Acute Distress - Head Exam Head Exam: ATRAUMATIC, NORMOCEPHALIC - Eye Exam Eye Exam: EOMI, PERRL - Neck Exam Neck Exam: absent: Lymphadenopathy, Thyromegaly - Respiratory Exam Respiratory Exam: NORMAL BREATHING PATTERN. absent: Rales, Rhonchi, Wheezes - Cardiovascular Exam Cardiovascular Exam: REGULAR RHYTHM, +S1, +S2. absent: Gallop, Rubs, Murmur - GI/Abdominal Exam GI & Abdominal Exam: Soft, Normal Bowel Sounds. absent: Tenderness, Mass, Organomegaly - Rectal Exam Rectal Exam: Deferred - Extremities Exam Extremities Exam: absent: Calf Tenderness, Pedal Edema Assessment and Plan (1) Diarrhea Assessment & Plan: Diarrhea is coming under control with cholestyramine. Stool cultures are negative, though we are awaiting the results of the giardia antigen and repeat ova and parasites. Check biopsy results. Status: Acute
--- NOTE | 2018-02-20 17:49 | CP.PCM.PN ---
Subjective - Date & Time of Evaluation Date of Evaluation: 02/20/18 Time of Evaluation: 09:00 - Subjective Subjective: await OR results - biopsy iv rx in progress c diff neg Objective - Vital Signs/Intake and Output Vital Signs (last 24 hours): Temp Pulse Resp BP Pulse Ox 98.0 F 68 20 128/70 100 02/20/18 15:00 02/20/18 15:00 02/20/18 15:00 02/20/18 15:00 02/20/18 15:00 Intake and Output: 02/20/18 02/20/18 06:59 18:59 Intake Total 900 260 Balance 900 260 - Medications Medications: Current Medications Acetaminophen (Tylenol 325mg Tab) 650 mg PO Q4 PRN PRN Reason: Fever >100.4 F Last Admin: 02/20/18 00:03 Dose: 650 mg Cholestyramine Resin (Questran) 4 gm PO QID [facility] Last Admin: 02/20/18 13:05 Dose: Not Given Enoxaparin Sodium (Lovenox) 40 mg SC DAILY [facility] Last Admin: 02/20/18 09:50 Dose: 40 mg Fluticasone Propionate (Flonase) 2 spr NS DAILY [facility] Last Admin: 02/20/18 09:52 Dose: 1 sprays Metronidazole (Flagyl) 500 mg in 100 mls @ 100 mls/hr IVPB Q8 [facility] PRN Reason: Protocol Last Admin: 02/20/18 13:55 Dose: 100 mls/hr Potassium Chloride/Sodium Chloride (Potassium Chl 20 Meq In Ns) 1,000 mls @ 100 mls/hr IV .Q10H [facility] Last Admin: 02/20/18 13:56 Dose: 100 mls/hr Potassium Chloride (Potassium Chloride 20 Meq/100 Ml) 20 meq in 100 mls @ 50 mls/hr IVPB Q2 [facility] Stop: 02/20/18 19:59 Last Admin: 02/20/18 15:13 Dose: 50 mls/hr Mesalamine (Delzicol Dr) 1,600 mg PO TID [facility] Last Admin: 02/20/18 13:04 Dose: 1,600 mg Nortriptyline HCl (Pamelor) 25 mg PO BID [facility] Last Admin: 02/20/18 09:51 Dose: 25 mg Pantoprazole Sodium (Protonix Inj) 40 mg IVP DAILY [facility] Last Admin: 02/20/18 09:49 Dose: 40 mg Potassium Chloride (K-Dur 20 Meq Er Tab) 40 meq PO ONCE ONE Stop: 02/21/18 15:01 Saccharomyces Boulardii (Florastor) 250 mg PO TID [facility] Last Admin: 02/20/18 14:44 Dose: 250 mg Vancomycin HCl (Vancocin (Oral Or Rectal Use)) 500 mg PO QID [facility] PRN Reason: Protocol Last Admin: 02/20/18 13:04 Dose: 500 mg Zolpidem Tartrate (Ambien) 5 mg PO HS PRN PRN Reason: Insomnia Last Admin: 02/20/18 00:03 Dose: 5 mg - Labs Labs: 02/20/18 07:20 02/20/18 07:20 PT 13.1 SECONDS (9.7-12.2) H 02/14/18 08:27 INR 1.2 02/14/18 08:27 APTT 29 SECONDS (21-34) 02/14/18 08:27 - Constitutional Appears: Non-toxic, Chronically Ill - Head Exam Head Exam: NORMOCEPHALIC - Eye Exam Eye Exam: PERRL. absent: Scleral icterus - ENT Exam ENT Exam: Mucous Membranes Dry - Neck Exam Neck Exam: absent: Lymphadenopathy - Respiratory Exam Respiratory Exam: Decreased Breath Sounds - Cardiovascular Exam Cardiovascular Exam: REGULAR RHYTHM - GI/Abdominal Exam GI & Abdominal Exam: Distended - Rectal Exam Rectal Exam: Deferred - Exam Exam: NORMAL INSPECTION Assessment and Plan (1) Pneumonia Status: Acute (2) Bloody diarrhea Status: Acute (3) Colitis Status: Acute
[2018-02-21] MEDS: Potassium Chl 20 mEq in NS 1,000 ML IV SCH ×5 (02:30→21:35)
[2018-02-21] MEDS: metroNIDAZOLE IV 500 mg/100 ml 500 MG/100 ML BAG IVPB SCH ×3 (05:22→21:23)
[2018-02-21 08:02] LABS: BASO % 0.5 % (0.0-2.0); EOS # 0.6 K/uL (0.0-0.7); EOS % 9.9 % (0.0-4.0); HEMOGLOBIN 10.5 g/dL (11.0-16.0); LYMPH % 35.3 % (20.0-40.0); MEAN CELL VOLUME 96.3 fL (81.0-99.0); MEAN CORPUSCULAR HEMOGLOBIN 33.1 pg (27.0-31.0); MEAN CORPUSCULAR HGB CONC 34.4 g/dL (33.0-37.0); MEAN PLATELET VOLUME 8.2 fL (7.2-11.7); MONO # 0.8 K/uL (0.0-0.8); MONO % 14.4 % (0.0-10.0); NEUT # 2.3 K/uL (1.8-7.0); NEUT % 39.9 % (50.0-75.0); NRBC % 0.1 % (0.0-2.0); RBC 3.16 Mil/uL (3.80-5.20); RED CELL DISTRIBUTION WIDTH 13.4 % (11.5-14.5); WHITE BLOOD COUNT 5.7 K/uL (4.8-10.8)
--- NOTE | 2018-02-21 08:05 | CP.PCM.PN ---
Subjective - Date & Time of Evaluation Date of Evaluation: 02/21/18 Time of Evaluation: 08:00 - Subjective Subjective: PGY 2 Medicine Note- Dr. Sheldon's service. Patient seen and examined bedside. Nursing reports no episodes of diarrhea overnight. The patient states that since this am she has had 6 soft bms. She denies abdominal pain, n/v/d/c overnight. Patient reports she is breathing without difficulty. Objective - Vital Signs/Intake and Output Vital Signs (last 24 hours): Temp Pulse Resp BP Pulse Ox 98.5 F 86 20 131/72 96 02/20/18 23:30 02/20/18 23:30 02/20/18 23:30 02/20/18 23:30 02/20/18 23:30 - Medications Medications: Current Medications Acetaminophen (Tylenol 325mg Tab) 650 mg PO Q4 PRN PRN Reason: Fever >100.4 F Last Admin: 02/20/18 00:03 Dose: 650 mg Cholestyramine Resin (Questran) 4 gm PO QID [facility] Last Admin: 02/20/18 21:56 Dose: 4 gm Enoxaparin Sodium (Lovenox) 40 mg SC DAILY [facility] Last Admin: 02/20/18 09:50 Dose: 40 mg Fluticasone Propionate (Flonase) 2 spr NS DAILY [facility] Last Admin: 02/20/18 09:52 Dose: 1 sprays Metronidazole (Flagyl) 500 mg in 100 mls @ 100 mls/hr IVPB Q8 [facility] PRN Reason: Protocol Last Admin: 02/21/18 05:22 Dose: 100 mls/hr Potassium Chloride/Sodium Chloride (Potassium Chl 20 Meq In Ns) 1,000 mls @ 100 mls/hr IV .Q10H [facility] Last Admin: 02/21/18 05:24 Dose: 100 mls/hr Mesalamine (Delzicol Dr) 1,600 mg PO TID [facility] Last Admin: 02/20/18 17:59 Dose: 1,600 mg Nortriptyline HCl (Pamelor) 25 mg PO BID [facility] Last Admin: 02/20/18 17:59 Dose: 25 mg Pantoprazole Sodium (Protonix Inj) 40 mg IVP DAILY [facility] Last Admin: 02/20/18 09:49 Dose: 40 mg Potassium Chloride (K-Dur 20 Meq Er Tab) 40 meq PO ONCE ONE Stop: 02/21/18 15:01 Saccharomyces Boulardii (Florastor) 250 mg PO TID [facility] Last Admin: 02/20/18 18:56 Dose: 250 mg Vancomycin HCl (Vancocin (Oral Or Rectal Use)) 500 mg PO QID [facility] PRN Reason: Protocol Last Admin: 02/20/18 21:55 Dose: 500 mg Zolpidem Tartrate (Ambien) 5 mg PO HS PRN PRN Reason: Insomnia Last Admin: 02/20/18 21:55 Dose: 5 mg - Labs Labs: 02/20/18 07:20 02/20/18 07:20 PT 13.1 SECONDS (9.7-12.2) H 02/14/18 08:27 INR 1.2 02/14/18 08:27 APTT 29 SECONDS (21-34) 02/14/18 08:27 - Constitutional Appears: Non-toxic, No Acute Distress - Head Exam Head Exam: ATRAUMATIC, NORMAL INSPECTION - Eye Exam Eye Exam: EOMI, PERRL Pupil Exam: NORMAL ACCOMODATION - Respiratory Exam Respiratory Exam: Clear to Ausculation Bilateral, NORMAL BREATHING PATTERN. absent: Respiratory Distress - Cardiovascular Exam Cardiovascular Exam: REGULAR RHYTHM, +S1, +S2 - GI/Abdominal Exam GI & Abdominal Exam: Soft, Normal Bowel Sounds. absent: Distended, Firm, Guarding, Tenderness - Extremities Exam Extremities Exam: Normal Inspection - Back Exam Back Exam: NORMAL INSPECTION - Neurological Exam Neurological Exam: Alert, Awake, CN II-XII Intact, Normal Gait, Oriented x3 - Psychiatric Exam Psychiatric exam: Normal Affect, Normal Mood Assessment and Plan - Assessment and Plan (Free Text) Assessment: Diarrhea Of suspected infectious origin CT abdomen from 02/15 notes circumferential mural thickening of entire colon with pericolonic stranding suggestive of braun-colitis. Refer to complete report. C. diff studies- Negative Stool leukoctes negative. Stool studies negative for ova and parasitic etiologies Current Abx: Vancomycin 1g IV q12h Zosyn 3.375g IV q6h Flagyl 500mg IV q8hrs On Florastor ID, Dr. Summers consulted- recs appreciated Continue current abx GI, Dr. Lemus consulted Colonoscopy performed 02/19- Rectal ulcer and non-specific colitis noted. Biopsy obtained. -F/U results History of ulcerative colitis Patient takes Lialda (Mesalamine) at home, NF here Continue Mesalamine 1600mg PO TID Continue Cholestyramine 4g PO QID as per GI Peripheral neuropathy On Nortriptyline 25mg PO BID Prophylactic measure Protonix 40mg IV daily Lovenox 40sc daily Hypomagnesim Mg 1.5 Mg sulfate x 2 grams given Disposition: Possible discharge pending GI reccs, diarrhea resolution. Case discussed with Dr. Sheldon All management as per Dr. Sheldon
[2018-02-21 08:16] LABS: ALB/GLOB RATIO 0.9 (1.0-2.1); ALBUMIN 2.6 g/dL (3.5-5.0); ALT/SGPT 26 U/L (9-52); AST/SGOT 18 U/L (14-36); BLOOD UREA NITROGEN < 2 mg/dL (7-17); GFR AFRICAN-AMERICAN > 60; GFR NON-AFRICAN AMERICAN > 60
[2018-02-21] MEDS: Saccharomyces Boulardi 250 mg Cap PO SCH ×3 (09:27→17:42)
[2018-02-21] MEDS: Enoxaparin 40 mg Syringe SC SCH (09:27)
[2018-02-21] MEDS: Fluticasone Nasal 50 mcg/Spray NS SCH (09:29)
[2018-02-21] MEDS: Vancomycin 125 MG/5 ML SOLN (ORAL/RECTAL) PO SCH ×4 (09:30→21:22)
[2018-02-21] MEDS: Magnesium Sulfate 1 gm in D5W 1 GM/100 ML BAG IVPB SCH ×2 (10:35→10:36)
[2018-02-21] MEDS: Cholestyramine 4 gm/Pkt UD PO SCH ×4 (10:40→21:21)
[2018-02-21] MEDS ORDERED: Potassium Chloride 20 mEq ER Tab PO ONE (15:00)
--- NOTE | 2018-02-21 15:14 | CP.PCM.PN ---
Subjective - Date & Time of Evaluation Date of Evaluation: 02/21/18 Time of Evaluation: 15:11 - Subjective Subjective: Patient continues to complain of fatigue. She states that she had four bowel movements today, though she mentioned six bowel movements to the house staff. Nurses state that they are aware of three bowel movements. She denies having abdominal pain, nausea, vomiting, rectal bleeding. Objective - Vital Signs/Intake and Output Vital Signs (last 24 hours): Temp Pulse Resp BP Pulse Ox 98.2 F 85 20 137/75 96 02/21/18 08:32 02/21/18 08:32 02/21/18 08:32 02/21/18 08:32 02/21/18 08:32 Intake and Output: 02/21/18 02/21/18 06:59 18:59 Intake Total 320 Balance 320 - Medications Medications: Current Medications Acetaminophen (Tylenol 325mg Tab) 650 mg PO Q4 PRN PRN Reason: Fever >100.4 F Last Admin: 02/20/18 00:03 Dose: 650 mg Cholestyramine Resin (Questran) 4 gm PO QID [facility] Last Admin: 02/21/18 14:40 Dose: 4 gm Enoxaparin Sodium (Lovenox) 40 mg SC DAILY [facility] Last Admin: 02/21/18 09:27 Dose: 40 mg Fluticasone Propionate (Flonase) 2 spr NS DAILY [facility] Last Admin: 02/21/18 09:29 Dose: 2 sprays Metronidazole (Flagyl) 500 mg in 100 mls @ 100 mls/hr IVPB Q8 [facility] PRN Reason: Protocol Last Admin: 02/21/18 14:40 Dose: 100 mls/hr Potassium Chloride/Sodium Chloride (Potassium Chl 20 Meq In Ns) 1,000 mls @ 100 mls/hr IV .Q10H [facility] Last Admin: 02/21/18 12:48 Dose: Not Given Mesalamine (Delzicol Dr) 1,600 mg PO TID [facility] Last Admin: 02/21/18 14:33 Dose: 1,600 mg Nortriptyline HCl (Pamelor) 25 mg PO BID [facility] Last Admin: 02/21/18 09:28 Dose: 25 mg Pantoprazole Sodium (Protonix Ec Tab) 40 mg PO DAILY [facility] Saccharomyces Boulardii (Florastor) 250 mg PO TID [facility] Last Admin: 02/21/18 14:40 Dose: 250 mg Vancomycin HCl (Vancocin (Oral Or Rectal Use)) 500 mg PO QID [facility] PRN Reason: Protocol Last Admin: 02/21/18 14:34 Dose: 500 mg Zolpidem Tartrate (Ambien) 5 mg PO HS PRN PRN Reason: Insomnia Last Admin: 02/20/18 21:55 Dose: 5 mg - Labs Labs: 02/21/18 07:46 02/21/18 07:46 PT 13.1 SECONDS (9.7-12.2) H 02/14/18 08:27 INR 1.2 02/14/18 08:27 APTT 29 SECONDS (21-34) 02/14/18 08:27 - Constitutional Appears: No Acute Distress - Head Exam Head Exam: ATRAUMATIC, NORMOCEPHALIC - Eye Exam Eye Exam: EOMI, PERRL - Neck Exam Neck Exam: absent: Lymphadenopathy, Thyromegaly - Respiratory Exam Respiratory Exam: NORMAL BREATHING PATTERN. absent: Rales, Rhonchi, Wheezes - Cardiovascular Exam Cardiovascular Exam: REGULAR RHYTHM, +S1, +S2. absent: Gallop, Rubs, Murmur - GI/Abdominal Exam GI & Abdominal Exam: Soft, Normal Bowel Sounds. absent: Tenderness, Mass, Organomegaly - Rectal Exam Rectal Exam: Deferred - Extremities Exam Extremities Exam: absent: Calf Tenderness, Pedal Edema Assessment and Plan (1) Diarrhea Assessment & Plan: Patient continues to complain of diarrhea, though it seems to be less frequent than on admission and more formed. The stool O and P and giardia antigen were negative. Biopsies showed focal increase in chronic inflammatory cells and focal superficial acute inflammation and cryptitis, but did not suggest a specific etiology. We will request a second path opinion. We will continue to treat the diarrhea symptomatically. Status: Acute
[2018-02-21] MEDS ORDERED: Bismuth Subsalicylate 262 mg/15 ml Sus (240 ml) PO SCH (18:00)
[2018-02-22] MEDS: metroNIDAZOLE IV 500 mg/100 ml 500 MG/100 ML BAG IVPB SCH ×3 (05:26→21:35)
[2018-02-22 07:20] LABS: BASO # 0.1 K/uL (0.0-0.2); EOS # 0.6 K/uL (0.0-0.7); HEMOGLOBIN 10.8 g/dL (11.0-16.0); LYMPH # 2.2 K/uL (1.0-4.3); LYMPH % 37.8 % (20.0-40.0); MEAN CELL VOLUME 95.8 fL (81.0-99.0); MEAN CORPUSCULAR HEMOGLOBIN 32.3 pg (27.0-31.0); MEAN CORPUSCULAR HGB CONC 33.7 g/dL (33.0-37.0); MEAN PLATELET VOLUME 8.4 fL (7.2-11.7); MONO # 0.8 K/uL (0.0-0.8); MONO % 13.8 % (0.0-10.0); NEUT # 2.2 K/uL (1.8-7.0); NEUT % 37.4 % (50.0-75.0); RBC 3.33 Mil/uL (3.80-5.20); RED CELL DISTRIBUTION WIDTH 13.5 % (11.5-14.5); WHITE BLOOD COUNT 5.8 K/uL (4.8-10.8)
[2018-02-22 08:06] LABS: ALBUMIN 2.8 g/dL (3.5-5.0); ALT/SGPT 19 U/L (9-52); AST/SGOT 15 U/L (14-36); BLOOD UREA NITROGEN < 2 mg/dL (7-17); CALCIUM 8.2 mg/dl (8.6-10.4); GFR AFRICAN-AMERICAN > 60; GFR NON-AFRICAN AMERICAN > 60
--- NOTE | 2018-02-22 08:29 | CP.PCM.PN ---
Subjective - Date & Time of Evaluation Date of Evaluation: 02/22/18 Time of Evaluation: 08:25 - Subjective Subjective: Patient continues to complain of frequent bowel movements, three times this morning, up to seven times in the past 24 hours, but more formed, not watery and not bloody. She denies having nausea, vomiting, abdominal pain. Her appetite remains poor. Objective - Vital Signs/Intake and Output Vital Signs (last 24 hours): Temp Pulse Resp BP Pulse Ox 97.8 F 74 20 138/74 95 02/21/18 23:30 02/21/18 23:30 02/21/18 23:30 02/21/18 23:30 02/21/18 23:30 Intake and Output: 02/22/18 02/22/18 06:59 18:59 Intake Total 1040 Balance 1040 - Medications Medications: Current Medications Acetaminophen (Tylenol 325mg Tab) 650 mg PO Q4 PRN PRN Reason: Fever >100.4 F Last Admin: 02/20/18 00:03 Dose: 650 mg Bismuth Subsalicylate (Pepto-Bismol) 262 mg PO BID [facility] Last Admin: 02/21/18 17:43 Dose: 262 mg Cholestyramine Resin (Questran) 4 gm PO QID [facility] Last Admin: 02/21/18 21:21 Dose: 4 gm Enoxaparin Sodium (Lovenox) 40 mg SC DAILY [facility] Last Admin: 02/21/18 09:27 Dose: 40 mg Fluticasone Propionate (Flonase) 2 spr NS DAILY [facility] Last Admin: 02/21/18 09:29 Dose: 2 sprays Metronidazole (Flagyl) 500 mg in 100 mls @ 100 mls/hr IVPB Q8 [facility] PRN Reason: Protocol Last Admin: 02/22/18 05:26 Dose: 100 mls/hr Potassium Chloride/Sodium Chloride (Potassium Chl 20 Meq In Ns) 1,000 mls @ 100 mls/hr IV .Q10H [facility] Last Admin: 02/21/18 21:35 Dose: Not Given Mesalamine (Delzicol Dr) 1,600 mg PO TID [facility] Last Admin: 02/21/18 17:42 Dose: 1,600 mg Nortriptyline HCl (Pamelor) 25 mg PO BID [facility] Last Admin: 02/21/18 17:43 Dose: 25 mg Pantoprazole Sodium (Protonix Ec Tab) 40 mg PO DAILY [facility] Saccharomyces Boulardii (Florastor) 250 mg PO TID [facility] Last Admin: 02/21/18 17:42 Dose: 250 mg Vancomycin HCl (Vancocin (Oral Or Rectal Use)) 500 mg PO QID [facility] PRN Reason: Protocol Last Admin: 02/21/18 21:22 Dose: 500 mg Zolpidem Tartrate (Ambien) 5 mg PO HS PRN PRN Reason: Insomnia Last Admin: 02/20/18 21:55 Dose: 5 mg - Labs Labs: 02/22/18 07:06 02/22/18 07:06 PT 13.1 SECONDS (9.7-12.2) H 02/14/18 08:27 INR 1.2 02/14/18 08:27 APTT 29 SECONDS (21-34) 02/14/18 08:27 - Constitutional Appears: No Acute Distress - Head Exam Head Exam: ATRAUMATIC, NORMOCEPHALIC - Eye Exam Eye Exam: EOMI, PERRL - Neck Exam Neck Exam: absent: Lymphadenopathy, Thyromegaly - Respiratory Exam Respiratory Exam: NORMAL BREATHING PATTERN. absent: Rales, Rhonchi, Wheezes - Cardiovascular Exam Cardiovascular Exam: REGULAR RHYTHM, +S1, +S2. absent: Gallop, Rubs, Murmur - GI/Abdominal Exam GI & Abdominal Exam: Soft, Normal Bowel Sounds. absent: Tenderness, Mass, Organomegaly - Rectal Exam Rectal Exam: Deferred - Extremities Exam Extremities Exam: absent: Calf Tenderness, Pedal Edema Assessment and Plan (1) Diarrhea Assessment & Plan: Bowel movements remain frequent but are more formed. All stool cultures have been negative. Fecal leukocytes are negative, and calprotectin is pending. The endoscopic findings and biopsy results do not show classic findings of ulcerative colitis; second path opinion has been requested. Will try a higher dose of bismuth subsalicylate. Status: Acute
[2018-02-22] MEDS: Vancomycin 125 MG/5 ML SOLN (ORAL/RECTAL) PO SCH ×4 (09:23→21:31)
[2018-02-22] MEDS: Fluticasone Nasal 50 mcg/Spray NS SCH (09:24)
[2018-02-22] MEDS: Bismuth Subsalicylate 262 mg Chew Tab PO SCH ×4 (09:25→21:35)
[2018-02-22] MEDS: Saccharomyces Boulardi 250 mg Cap PO SCH ×3 (09:26→18:02)
[2018-02-22] MEDS: Enoxaparin 40 mg Syringe SC SCH (09:26)
[2018-02-22] MEDS: Pantoprazole 40 mg EC Tab PO SCH (09:26)
[2018-02-22] MEDS: Cholestyramine 4 gm/Pkt UD PO SCH ×4 (10:00→21:33)
[2018-02-22] MEDS: Potassium Chl 20 mEq in NS 1,000 ML IV SCH ×2 (13:07→18:04)
--- NOTE | 2018-02-22 15:36 | CP.PCM.PN ---
Subjective - Date & Time of Evaluation Date of Evaluation: 02/22/18 Time of Evaluation: 08:00 - Subjective Subjective: continues to complain of frequent bowel movements, but more formed,\ GI on board- to review biopsy Objective - Vital Signs/Intake and Output Vital Signs (last 24 hours): Temp Pulse Resp BP Pulse Ox 98.3 F 75 20 147/74 98 02/22/18 08:27 02/22/18 08:27 02/22/18 08:27 02/22/18 08:27 02/22/18 08:27 Intake and Output: 02/22/18 02/22/18 06:59 18:59 Intake Total 1040 1080 Balance 1040 1080 - Medications Medications: Current Medications Acetaminophen (Tylenol 325mg Tab) 650 mg PO Q4 PRN PRN Reason: Fever >100.4 F Last Admin: 02/20/18 00:03 Dose: 650 mg Bismuth Subsalicylate (Pepto Bismol) 262 mg PO QID [facility] Last Admin: 02/22/18 13:06 Dose: 262 mg Cholestyramine Resin (Questran) 4 gm PO QID [facility] Last Admin: 02/22/18 13:07 Dose: 4 gm Enoxaparin Sodium (Lovenox) 40 mg SC DAILY [facility] Last Admin: 02/22/18 09:26 Dose: 40 mg Fluticasone Propionate (Flonase) 2 spr NS DAILY [facility] Last Admin: 02/22/18 09:24 Dose: 1 sprays Metronidazole (Flagyl) 500 mg in 100 mls @ 100 mls/hr IVPB Q8 [facility] PRN Reason: Protocol Last Admin: 02/22/18 13:21 Dose: 100 mls/hr Potassium Chloride/Sodium Chloride (Potassium Chl 20 Meq In Ns) 1,000 mls @ 100 mls/hr IV .Q10H [facility] Last Admin: 02/22/18 13:07 Dose: 100 mls/hr Mesalamine (Delzicol Dr) 1,600 mg PO TID [facility] Last Admin: 02/22/18 13:05 Dose: 1,600 mg Nortriptyline HCl (Pamelor) 25 mg PO BID [facility] Last Admin: 02/22/18 09:26 Dose: 25 mg Pantoprazole Sodium (Protonix Ec Tab) 40 mg PO DAILY [facility] Last Admin: 02/22/18 09:26 Dose: 40 mg Saccharomyces Boulardii (Florastor) 250 mg PO TID [facility] Last Admin: 02/22/18 13:06 Dose: 250 mg Vancomycin HCl (Vancocin (Oral Or Rectal Use)) 500 mg PO QID [facility] PRN Reason: Protocol Last Admin: 02/22/18 13:09 Dose: 500 mg Zolpidem Tartrate (Ambien) 5 mg PO HS PRN PRN Reason: Insomnia Last Admin: 02/20/18 21:55 Dose: 5 mg - Labs Labs: 02/22/18 07:06 02/22/18 07:06 PT 13.1 SECONDS (9.7-12.2) H 02/14/18 08:27 INR 1.2 02/14/18 08:27 APTT 29 SECONDS (21-34) 02/14/18 08:27 - Constitutional Appears: Non-toxic, Chronically Ill - Head Exam Head Exam: NORMOCEPHALIC - Eye Exam Eye Exam: absent: Scleral icterus - ENT Exam ENT Exam: Mucous Membranes Dry - Neck Exam Neck Exam: absent: Lymphadenopathy - Respiratory Exam Respiratory Exam: Decreased Breath Sounds - Cardiovascular Exam Cardiovascular Exam: REGULAR RHYTHM - GI/Abdominal Exam GI & Abdominal Exam: Distended - Rectal Exam Rectal Exam: Deferred - Exam Exam: NORMAL INSPECTION - Extremities Exam Extremities Exam: absent: Pedal Edema - Back Exam Back Exam: absent: CVA tenderness (L), CVA tenderness (R) Assessment and Plan (1) Pneumonia Status: Acute (2) Bloody diarrhea Status: Acute (3) Colitis Status: Acute - Assessment and Plan (Free Text) Assessment: await bx reports gi follow up procalcitonin level down less diarrhea
--- NOTE | 2018-02-22 20:13 | CP.PCM.PN ---
Subjective - Date & Time of Evaluation Date of Evaluation: 02/22/18 Time of Evaluation: 10:43 - Subjective Subjective: PGY 2 Medicine Note- Dr. Sheldon's service Patient seen and examined. Patient reports continued loose stools though slightly more formed. Patient feels weak . She is tolerating some of the food brought in by her family. No nausea or vomiting. Objective - Vital Signs/Intake and Output Vital Signs (last 24 hours): Temp Pulse Resp BP Pulse Ox 98.4 F 70 20 137/73 99 02/22/18 15:12 02/22/18 15:12 02/22/18 15:12 02/22/18 15:12 02/22/18 15:12 Intake and Output: 02/22/18 02/23/18 18:59 06:59 Intake Total 1080 Balance 1080 - Medications Medications: Current Medications Acetaminophen (Tylenol 325mg Tab) 650 mg PO Q4 PRN PRN Reason: Fever >100.4 F Last Admin: 02/20/18 00:03 Dose: 650 mg Bismuth Subsalicylate (Pepto Bismol) 262 mg PO QID [facility] Last Admin: 02/22/18 18:02 Dose: 262 mg Cholestyramine Resin (Questran) 4 gm PO QID [facility] Last Admin: 02/22/18 18:03 Dose: 4 gm Enoxaparin Sodium (Lovenox) 40 mg SC DAILY [facility] Last Admin: 02/22/18 09:26 Dose: 40 mg Fluticasone Propionate (Flonase) 2 spr NS DAILY [facility] Last Admin: 02/22/18 09:24 Dose: 1 sprays Metronidazole (Flagyl) 500 mg in 100 mls @ 100 mls/hr IVPB Q8 [facility] PRN Reason: Protocol Last Admin: 02/22/18 13:21 Dose: 100 mls/hr Potassium Chloride/Sodium Chloride (Potassium Chl 20 Meq In Ns) 1,000 mls @ 100 mls/hr IV .Q10H [facility] Last Admin: 02/22/18 18:04 Dose: Not Given Mesalamine (Delzicol ) 1,600 mg PO TID [facility] Last Admin: 02/22/18 18:03 Dose: 1,600 mg Nortriptyline HCl (Pamelor) 25 mg PO BID [facility] Last Admin: 02/22/18 18:03 Dose: 25 mg Pantoprazole Sodium (Protonix Ec Tab) 40 mg PO DAILY [facility] Last Admin: 02/22/18 09:26 Dose: 40 mg Saccharomyces Boulardii (Florastor) 250 mg PO TID [facility] Last Admin: 02/22/18 18:02 Dose: 250 mg Vancomycin HCl (Vancocin (Oral Or Rectal Use)) 500 mg PO QID [facility] PRN Reason: Protocol Last Admin: 02/22/18 18:03 Dose: 500 mg Zolpidem Tartrate (Ambien) 5 mg PO HS PRN PRN Reason: Insomnia Last Admin: 02/20/18 21:55 Dose: 5 mg - Labs Labs: 02/22/18 07:06 02/22/18 07:06 PT 13.1 SECONDS (9.7-12.2) H 02/14/18 08:27 INR 1.2 02/14/18 08:27 APTT 29 SECONDS (21-34) 02/14/18 08:27 - Constitutional Appears: Non-toxic, Other (frail) - Head Exam Head Exam: ATRAUMATIC, NORMAL INSPECTION, NORMOCEPHALIC - Eye Exam Eye Exam: EOMI, Normal appearance, PERRL Pupil Exam: NORMAL ACCOMODATION - ENT Exam ENT Exam: Mucous Membranes Moist - Neck Exam Neck Exam: Full ROM - Cardiovascular Exam Cardiovascular Exam: +S1, +S2 - GI/Abdominal Exam GI & Abdominal Exam: Soft, Tenderness, Normal Bowel Sounds - Extremities Exam Extremities Exam: Full ROM - Back Exam Back Exam: Full ROM - Neurological Exam Neurological Exam: Alert, Awake - Psychiatric Exam Psychiatric exam: Flat Affect - Skin Skin Exam: Dry, Warm Assessment and Plan - Assessment and Plan (Free Text) Assessment: Diarrhea Of suspected infectious origin CT abdomen from 02/15 notes circumferential mural thickening of entire colon with pericolonic stranding suggestive of braun-colitis. Refer to complete report. C. diff studies- Negative Stool leukoctes negative. Stool studies negative for ova and parasitic etiologies: Giardia negative, c diff gene negative. Current Abx: Vancomycin 1g IV q12h Zosyn 3.375g IV q6h Flagyl 500mg IV q8hrs On Florastor ID, Dr. Summers consulted- recs appreciated Continue current abx GI, Dr. Lemus consulted Colonoscopy performed 02/19- Rectal ulcer and non-specific colitis noted. Biopsy obtained. Extensive discussion today regarding patient's clinical course. Patient continues to have bowel movements despite numerous studies and serology testing proving inconclusive. Patient appears weak and frail due to repeated bouts of diarrhea. GI Dr. Lemus currently considering a second pathology opinion regarding study findings. Patient will be monitored at least one more day . With noted improvements, discharge planning will begin. On increased bismuth dose. Monitor History of ulcerative colitis Patient takes Lialda (Mesalamine) at home, NF here Continue Mesalamine 1600mg PO TID Continue Cholestyramine 4g PO QID as per GI Peripheral neuropathy On Nortriptyline 25mg PO BID Electrolyte abnormality Monitor and replete. Encourage food intake Prophylactic measure Protonix 40mg IV daily Lovenox 40sc daily Disposition: Possible discharge tomorrow pending GI recommendations, decreased diarrhea and improved nutrition intake Case discussed with Dr. Sheldon All management as per Dr. Sheldon
[2018-02-23] MEDS: Potassium Chl 20 mEq in NS 1,000 ML IV SCH ×2 (04:30→05:56)
[2018-02-23] MEDS: metroNIDAZOLE IV 500 mg/100 ml 500 MG/100 ML BAG IVPB SCH ×2 (05:57→13:20)
[2018-02-23 08:37] LABS: BASO % 0.8 % (0.0-2.0); EOS # 0.5 K/uL (0.0-0.7); EOS % 8.1 % (0.0-4.0); LYMPH % 35.9 % (20.0-40.0); MEAN CELL VOLUME 95.4 fL (81.0-99.0); MEAN CORPUSCULAR HEMOGLOBIN 32.6 pg (27.0-31.0); MEAN CORPUSCULAR HGB CONC 34.2 g/dL (33.0-37.0); MEAN PLATELET VOLUME 8.2 fL (7.2-11.7); MONO # 0.7 K/uL (0.0-0.8); MONO % 11.9 % (0.0-10.0); NEUT # 2.5 K/uL (1.8-7.0); NEUT % 43.3 % (50.0-75.0); NRBC % 0.1 % (0.0-2.0); RBC 3.67 Mil/uL (3.80-5.20); RED CELL DISTRIBUTION WIDTH 13.5 % (11.5-14.5); WHITE BLOOD COUNT 5.7 K/uL (4.8-10.8)
[2018-02-23 08:38] LABS: ALBUMIN 3.2 g/dL (3.5-5.0); ALT/SGPT 11 U/L (9-52); AST/SGOT 17 U/L (14-36); BLOOD UREA NITROGEN < 2 mg/dL (7-17); CALCIUM 8.7 mg/dl (8.6-10.4); GFR AFRICAN-AMERICAN > 60; GFR NON-AFRICAN AMERICAN > 60
[2018-02-23] MEDS: Fluticasone Nasal 50 mcg/Spray NS SCH (09:27)
[2018-02-23] MEDS: Pantoprazole 40 mg EC Tab PO SCH (09:28)
[2018-02-23] MEDS: Cholestyramine 4 gm/Pkt UD PO SCH ×2 (09:28→13:20)
[2018-02-23] MEDS: Saccharomyces Boulardi 250 mg Cap PO SCH ×2 (09:28→13:24)
[2018-02-23] MEDS: Vancomycin 125 MG/5 ML SOLN (ORAL/RECTAL) PO SCH ×2 (09:29→13:24)
[2018-02-23] MEDS: Bismuth Subsalicylate 262 mg Chew Tab PO SCH (09:29)
[2018-02-23] MEDS: Enoxaparin 40 mg Syringe SC SCH (09:45)
--- NOTE | 2018-02-23 11:31 | CP.PCM.PN ---
Subjective - Date & Time of Evaluation Date of Evaluation: 02/23/18 Time of Evaluation: 11:27 - Subjective Subjective: Patient continues to complain of poor appetite. She denies having nausea, vomiting, abdominal pain. This morning, she had three bowel movements which were better formed than yesterday. Objective - Vital Signs/Intake and Output Vital Signs (last 24 hours): Temp Pulse Resp BP Pulse Ox 98 F 79 20 134/75 98 02/23/18 07:34 02/23/18 07:34 02/23/18 07:34 02/23/18 07:34 02/23/18 07:34 - Medications Medications: Current Medications Acetaminophen (Tylenol 325mg Tab) 650 mg PO Q4 PRN PRN Reason: Fever >100.4 F Last Admin: 02/20/18 00:03 Dose: 650 mg Bismuth Subsalicylate (Pepto Bismol) 262 mg PO QID [facility] Last Admin: 02/23/18 09:29 Dose: 262 mg Cholestyramine Resin (Questran) 4 gm PO QID [facility] Last Admin: 02/23/18 09:28 Dose: 4 gm Enoxaparin Sodium (Lovenox) 40 mg SC DAILY [facility] Last Admin: 02/23/18 09:45 Dose: 40 mg Fluticasone Propionate (Flonase) 2 spr NS DAILY [facility] Last Admin: 02/23/18 09:27 Dose: 1 sprays Metronidazole (Flagyl) 500 mg in 100 mls @ 100 mls/hr IVPB Q8 [facility] PRN Reason: Protocol Last Admin: 02/23/18 05:57 Dose: 100 mls/hr Potassium Chloride/Sodium Chloride (Potassium Chl 20 Meq In Ns) 1,000 mls @ 100 mls/hr IV .Q10H [facility] Last Admin: 02/23/18 05:56 Dose: 100 mls/hr Mesalamine (Delzicol Dr) 1,600 mg PO TID [facility] Last Admin: 02/23/18 09:45 Dose: 1,600 mg Nortriptyline HCl (Pamelor) 25 mg PO BID [facility] Last Admin: 02/23/18 09:28 Dose: 25 mg Pantoprazole Sodium (Protonix Ec Tab) 40 mg PO DAILY [facility] Last Admin: 02/23/18 09:28 Dose: 40 mg Saccharomyces Boulardii (Florastor) 250 mg PO TID [facility] Last Admin: 02/23/18 09:28 Dose: 250 mg Vancomycin HCl (Vancocin (Oral Or Rectal Use)) 500 mg PO QID [facility] PRN Reason: Protocol Last Admin: 02/23/18 09:29 Dose: 500 mg Zolpidem Tartrate (Ambien) 5 mg PO HS PRN PRN Reason: Insomnia Last Admin: 02/20/18 21:55 Dose: 5 mg - Labs Labs: 02/23/18 04:00 02/23/18 08:11 PT 13.1 SECONDS (9.7-12.2) H 02/14/18 08:27 INR 1.2 02/14/18 08:27 APTT 29 SECONDS (21-34) 02/14/18 08:27 - Constitutional Appears: No Acute Distress - Head Exam Head Exam: ATRAUMATIC, NORMOCEPHALIC - Eye Exam Eye Exam: EOMI, PERRL - Neck Exam Neck Exam: absent: Lymphadenopathy, Thyromegaly - Respiratory Exam Respiratory Exam: NORMAL BREATHING PATTERN. absent: Rales, Rhonchi, Wheezes - Cardiovascular Exam Cardiovascular Exam: REGULAR RHYTHM, +S1, +S2. absent: Gallop, Rubs, Murmur - GI/Abdominal Exam GI & Abdominal Exam: Soft, Normal Bowel Sounds. absent: Tenderness, Mass, Organomegaly - Rectal Exam Rectal Exam: Deferred - Extremities Exam Extremities Exam: absent: Calf Tenderness, Pedal Edema Assessment and Plan (1) Diarrhea Assessment & Plan: Diarrhea is improving. Apart from poor appetite, she is otherwise asymptomatic. All stool studies have been negative except for the occult blood test. Agree with plans for discharge. Would discontinue antibiotics as soon as possible and continue cholestyramine as an outpatient. Will follow up on the results of the pathology second opinion through the office. Status: Acute
[2018-02-23] MEDS ORDERED: Bismuth Subsalicylate 262 mg Chew Tab PO SCH (14:00)
--- NOTE | 2018-02-23 14:54 | CP.PCM.PN ---
Subjective - Date & Time of Evaluation Date of Evaluation: 02/23/18 Time of Evaluation: 14:53 - Subjective Subjective: PT SEEN BY DR. MADRID AND DR. CLARK AND CLEARED FOR D/C HOME TODAY. ALL RX DISCUSSED AT LENGTH WITH THE PT. ALL D/C AND F/U INFORMATION DISCUSSED WITH THE PT. PT'S SISTER AT BEDSIDE TO PICK HER UP. PT AND SISTER IN AGREEMENT WITH THE D/C PLAN. RX SENT TO PT'S PHARMACY. NO FURTHER ORDERS. -LSUGRUE -FOLLOW UP WITH DR. MADRID IN THE OFFICE WITHIN 5-7 DAYS---CALL THE OFFICE TO MAKE AN APPOINTMENT. -FOLLOW UP WITH DR. CLARK IN THE OFFICE WITHIN 7-10 DAYS---CALL THE OFFICE TO MAKE AN APPOINTMENT. -CONTINUE YOUR HOME MEDICATIONS USUAL. -NEW PRESCRIPTIONS SENT TO YOUR PHARMACY INCLUDE: 1) PEPTO BISMOL 262 MG (1 TABLET) BY MOUTH 4 TIMES A DAY. 2) FLAGYL 500 MG (1 TABLET; ANTIBIOTIC) BY MOUTH EVERY 8 HOURS THREE TIMES A DAY FOR 7 DAYS. 3) PROTONIX 40 MG (1 TABLET) BY MOUTH ONCE A DAY. 4) POTASSIUM SUPPLEMENTS 20 MEQ (1 TABLET) BY MOUTH ONCE A DAY FOR 7 DAYS. 5) FLORASTOR 250 MG (1 CAPSULE) BY MOUTH TWICE A DAY. 6) VANCOMYCIN 500 MG (TAKE 20 ML) BY MOUTH 4 TIMES A DAY FOR 7 DAYS. -IF YOU HAVE ANY FURTHER CONCERNS AND QUESTIONS, CONTACT DR. CLARK OR DR. MADRID. Objective - Vital Signs/Intake and Output Vital Signs (last 24 hours): Temp Pulse Resp BP Pulse Ox 98 F 79 20 134/75 98 02/23/18 07:34 02/23/18 07:34 02/23/18 07:34 02/23/18 07:34 02/23/18 07:34 Intake and Output: 02/23/18 02/23/18 06:59 18:59 Intake Total 1080 Balance 1080 - Medications Medications: Current Medications Acetaminophen (Tylenol 325mg Tab) 650 mg PO Q4 PRN PRN Reason: Fever >100.4 F Last Admin: 02/20/18 00:03 Dose: 650 mg Bismuth Subsalicylate (Pepto Bismol) 262 mg PO QID [facility] Last Admin: 02/23/18 13:22 Dose: 262 mg Cholestyramine Resin (Questran) 4 gm PO QID [facility] Last Admin: 02/23/18 13:20 Dose: 4 gm Enoxaparin Sodium (Lovenox) 40 mg SC DAILY [facility] Last Admin: 02/23/18 09:45 Dose: 40 mg Fluticasone Propionate (Flonase) 2 spr NS DAILY [facility] Last Admin: 02/23/18 09:27 Dose: 1 sprays Metronidazole (Flagyl) 500 mg in 100 mls @ 100 mls/hr IVPB Q8 [facility] PRN Reason: Protocol Last Admin: 02/23/18 13:20 Dose: 100 mls/hr Potassium Chloride/Sodium Chloride (Potassium Chl 20 Meq In Ns) 1,000 mls @ 100 mls/hr IV .Q10H [facility] Last Admin: 02/23/18 05:56 Dose: 100 mls/hr Mesalamine (Delzicol Dr) 1,600 mg PO TID [facility] Last Admin: 02/23/18 13:21 Dose: 1,600 mg Nortriptyline HCl (Pamelor) 25 mg PO BID [facility] Last Admin: 02/23/18 09:28 Dose: 25 mg Pantoprazole Sodium (Protonix Ec Tab) 40 mg PO DAILY [facility] Last Admin: 02/23/18 09:28 Dose: 40 mg Saccharomyces Boulardii (Florastor) 250 mg PO TID [facility] Last Admin: 02/23/18 13:24 Dose: 250 mg Vancomycin HCl (Vancocin (Oral Or Rectal Use)) 500 mg PO QID [facility] PRN Reason: Protocol Last Admin: 02/23/18 13:24 Dose: 500 mg Zolpidem Tartrate (Ambien) 5 mg PO HS PRN PRN Reason: Insomnia Last Admin: 02/20/18 21:55 Dose: 5 mg - Labs Labs: 02/23/18 04:00 02/23/18 08:11 PT 13.1 SECONDS (9.7-12.2) H 02/14/18 08:27 INR 1.2 02/14/18 08:27 APTT 29 SECONDS (21-34) 02/14/18 08:27
[2018-02-23 15:47] VITALS: BP 120/76; PULSE 88; TEMP 97.7; O2SAT 96
== END 2018-02-23 16:45 | disposition home or self-care (01) | DRG 385 ==
LOC: C.ER 07:36 → C.9E 09:21 → C.6T 12:14
PROVIDERS: ADMIT Internal Medicine Pulmonary Disease; ATTEND Internal Medicine Pulmonary Disease
PROC: 0DBG8ZX Excision of Left Large Intestine, Via Natural or Artificial Opening Endoscopic, Diagnostic (ICD-10-PCS; 2018-02-19)
PROC: 0DBF8ZX Excision of Right Large Intestine, Via Natural or Artificial Opening Endoscopic, Diagnostic (ICD-10-PCS; 2018-02-19)
PROC: 0DBP8ZX Excision of Rectum, Via Natural or Artificial Opening Endoscopic, Diagnostic (ICD-10-PCS; principal; 2018-02-19 10:16)
DX: K51.90 Ulcerative colitis, unspecified, without complications (principal); J18.9 Pneumonia, unspecified organism; K62.6 Ulcer of anus and rectum; G62.9 Polyneuropathy, unspecified; E87.6 Hypokalemia; E83.42 Hypomagnesemia; Z87.891 Personal history of nicotine dependence; K62.89 Other specified diseases of anus and rectum

== ENCOUNTER 2018-04-20 11:52 | Inpatient (IN) | payer MEDICARE, BC ==
[2018-04-20 11:53] VITALS: BMI 23.6
[2018-04-20] MEDS ORDERED: Sodium Chloride 0.9% 1,000 ML IV ONE (12:35)
[2018-04-20 12:47] LABS: BASO % 0.2 % (0.0-2.0); EOS # 0.3 K/uL (0.0-0.7); EOS % 2.2 % (0.0-4.0); HEMOGLOBIN 11.6 g/dL (11.0-16.0); LYMPH # 0.8 K/uL (1.0-4.3); LYMPH % 6.1 % (20.0-40.0); MEAN CELL VOLUME 95.3 fL (81.0-99.0); MEAN CORPUSCULAR HEMOGLOBIN 32.3 pg (27.0-31.0); MEAN CORPUSCULAR HGB CONC 33.9 g/dL (33.0-37.0); MEAN PLATELET VOLUME 8.3 fL (7.2-11.7); MONO # 0.8 K/uL (0.0-0.8); MONO % 6.2 % (0.0-10.0); NEUT # 11.4 K/uL (1.8-7.0); NEUT % 85.3 % (50.0-75.0); RED CELL DISTRIBUTION WIDTH 14.4 % (11.5-14.5)
[2018-04-20 12:53] LABS: PLATELET COUNT 255 K/uL (130-400); WHITE BLOOD COUNT 13.4 K/uL (4.8-10.8)
[2018-04-20] MEDS ORDERED: Sodium Chloride 0.9% 1,000 ML ONE (13:04)
[2018-04-20 13:10] LABS: ALBUMIN 3.2 g/dL (3.5-5.0); ALT/SGPT 14 U/L (9-52); AST/SGOT 42 U/L (14-36); BLOOD UREA NITROGEN 13 mg/dL (7-17); CALCIUM 8.3 mg/dl (8.6-10.4); GFR AFRICAN-AMERICAN > 60; GFR NON-AFRICAN AMERICAN > 60
[2018-04-20 13:21] LABS: B-TYPE NATRIURETIC PEPTIDE 795 pg/mL (0-900)
[2018-04-20 13:22] LABS: BANDS 2 % (0-2); LYMPHOCYTE 8 % (20-40); MONOCYTE 6 % (0-10); NEUTROPHIL 84 % (50-75); TOTAL CELLS COUNTED 100
[2018-04-20 13:23] LABS: ANISOCYTOSIS SLIGHT; PLATELET ESTIMATE NORMAL (NORMAL)
[2018-04-20 13:24] LABS: HYPOCHROMIC SLIGHT; OVALOCYTES SLIGHT; POLYCHROMIC SLIGHT
--- NOTE | 2018-04-20 13:26 | C.PDOC ---
History Of Present Illness Patient is a 77 y/o female, with a Hx of ulcerative colitis, who presents to the ED sent by PMD for generalized weakness, diarrhea, and fever for the last 1 week. Patient denies any blood in stool, cough, nausea, vomiting, dysuria, or abdominal pain. In ED, patient tmax is 101. Patient has no other physical complaints at this time. Time Seen by Provider: 04/20/18 12:11 Chief Complaint (Nursing): Fever History Per: Patient History/Exam Limitations: no limitations Onset/Duration Of Symptoms: Days (1 week) Current Symptoms Are (Timing): Still Present Associated Symptoms: Fever, Diarrhea, Other (generalized weakness). denies: Cough, Nausea, Vomiting Recent travel outside of the [place]: No Past Medical History Reviewed: Historical Data, Nursing Documentation, Vital Signs Vital Signs: Last Vital Signs Temp 98.5 F 04/22/18 07:00 Pulse 86 04/22/18 07:00 Resp 20 04/22/18 07:00 BP 106/64 04/22/18 07:00 Pulse Ox 97 04/22/18 07:00 - Medical History PMH: Crohn's Disease, Chronic Pain (ulcerative colitis) Denies: Depression, Diverticulitis, Gastritis, Gall Bladder Disease, HIV, Kidney Stones, Pancreatitis, Chronic Kidney Disease Other Surgeries: EXCISION OF LEFT LARGE INTESTINE, ENDO, DIAGN (02/14/18). EXCISION OF RECTUM, ENDO, DIAGN (02/14/18). EXCISION OF RIGHT LARGE INTESTINE, ENDO, DIAGN (02/14/18). EXCISION OF SIGMOID COLON, ENDO, DIAGN (10/07/17). FLEXIBLE SIGMOIDOSCOPY (03/26/03) - [facility] Procedures (01/28/18) (01/28/18) (01/28/18) (01/28/18) (01/28/18) CATARAC PHACOEMULS/ASPIR (09/11/13) CLOSED ENDOSCOPIC BIOPSY OF LARGE INTESTINE (02/11/14) CYSTOSCOPY NEC (11/27/06) ESOPHAGOGASTRODUODENOSCOPY [EGD] W/CLOSED BIOPSY (03/01/04) EXCISION OF LEFT LARGE INTESTINE, ENDO, DIAGN (02/14/18) EXCISION OF RECTUM, ENDO, DIAGN (02/14/18) EXCISION OF RIGHT LARGE INTESTINE, ENDO, DIAGN (02/14/18) EXCISION OF SIGMOID COLON, ENDO, DIAGN (10/07/17) FLEXIBLE SIGMOIDOSCOPY (03/26/03) INJECT/INFUSE NEC (03/16/06) INSERT LENS AT CATAR EXT (09/11/13) MAGNETIC RESONANCE IMAGING OF SPINAL CANAL (11/28/06) REMOV URETERAL DRAIN (11/27/06) RETROGRADE PYELOGRAM (07/07/14) URETERAL CATHETERIZATION (07/07/14) Family History: States: No Known Family Hx - Social History Hx Tobacco Use: No Hx Alcohol Use: No Hx Substance Use: No - Immunization History Hx Tetanus Toxoid Vaccination: Yes Review Of Systems Constitutional: Positive for: Fever Neurological: Positive for: Weakness Physical Exam - Physical Exam Appears: Well, Non-toxic, No Acute Distress Skin: Normal Color, Warm, Dry Head: Atraumatic, Normacephalic Eye(s): bilateral: PERRL, EOMI Oral Mucosa: Moist Neck: Supple Chest: Symmetrical Cardiovascular: Rhythm Regular, No Murmur Respiratory: Normal Breath Sounds, No Rales, No Rhonchi, No Wheezing Gastrointestinal/Abdominal: Soft, No Tenderness, No Guarding, No Rebound Extremity: Normal ROM (x4) Neurological/Psych: Oriented x3, Normal Speech, Normal Cognition ED Course And Treatment - Laboratory Results Result Diagrams: 04/22/18 06:48 04/22/18 06:48 O2 Sat by Pulse Oximetry: 99 - Radiology CXR: Interpreted by Me, Viewed By Me CXR Interpretation: Yes: No Acute Disease Progress Note: Assessment: fever. EKG, CXR, Blood work, CDiff, UA ordered. Tylenol and IV fluids administered. Case discussed with with Dr Shaw who agrees to admit patient to medical surgical floor for fever, leukocytosis, hypokalemiak, and diarrhea. Will treat with dose of prophylactic antibiotics. Medical Decision Making Medical Decision Making: Although c. diff hasn't resulted, discussed with pmd and would like to administer dose of zosyn. Disposition - Disposition Disposition: HOSPITALIZED Disposition Time: 17:47 Condition: FAIR - Clinical Impression Clinical Impression: Diarrhea, Hypokalemia, Fever - Scribe Statement The provider has reviewed the documentation as recorded by the Scribe Georgia Camacho All medical record entries made by the Scribe were at my direction and personally dictated by me. I have reviewed the chart and agree that the record accurately reflects my personal performance of the history, physical exam, medical decision making, and the department course for this patient. I have also personally directed, reviewed, and agree with the discharge instructions and disposition.
[2018-04-20] MEDS ORDERED: Potassium Chloride 20 mEq/15 ml LIQ UD ONE (14:19)
[2018-04-20] MEDS: Potassium Chloride 20 mEq ER Tab PO SCH (14:19)
--- NOTE | 2018-04-20 14:53 | RAD ---
HISTORY: chest pain COMPARISON: Comparison is made with 02/19/2018 TECHNIQUE: Chest PA and lateral FINDINGS: LUNGS: No active pulmonary disease. PLEURA: No significant pleural effusion identified. No pneumothorax apparent. CARDIOVASCULAR: Normal. OSSEOUS STRUCTURES: No significant abnormalities. VISUALIZED UPPER ABDOMEN: Normal. OTHER FINDINGS: None. IMPRESSION: No evidence of acute pathology or significant interval change.
[2018-04-20] MEDS ORDERED: Piperacillin/Tazobact 3.375 GM in Sodium Chloride 100 ML IVPB STA (17:48)
[2018-04-20] MEDS ORDERED: Piperacillin/Tazobact 3.375 gm 100 ML IVPB ONE (18:06)
[2018-04-20] MEDS ORDERED: Sodium Chloride 0.9% 1,000 ML IV SCH (20:15)
[2018-04-20] MEDS: Piperacill/Tazo 3.375gm in Dex 3.375 GM/50 ML BAG IVPB SCH ×2 (21:27→21:42)
[2018-04-20 21:59] LABS: SQUAMOUS EPITHIAL 1 /hpf (0-5); URINE BILIRUBIN NEGATIVE (NEGATIVE); URINE BLOOD 1+ (NEGATIVE); URINE CLARITY Hazy (Clear); URINE COLOR Yellow (YELLOW); URINE GLUCOSE (UA) NORMAL (Normal); URINE PROTEIN NEGATIVE (NEGATIVE); URINE UROBILINOGEN NORMAL mg/dL (0.2-1.0)
[2018-04-20 22:01] LABS: URINE LEUKOCYTE ESTERASE 1+ Leu/uL (Negative)
[2018-04-20] MEDS: Vancomycin 125 MG/5 ML SOLN (ORAL/RECTAL) PO SCH (23:06)
[2018-04-21] MEDS ORDERED: Piperacill/Tazo 3.375gm in Dex 3.375 GM/50 ML BAG IVPB SCH
[2018-04-21] MEDS: Lactobacillus Acidophilus 500 MU Cap PO SCH ×3 (03:15→18:13)
[2018-04-21] MEDS: Vancomycin 125 MG/5 ML SOLN (ORAL/RECTAL) PO SCH ×4 (05:53→22:46)
[2018-04-21 08:15] LABS: HEMOGLOBIN 10.7 g/dL (11.0-16.0); MEAN CELL VOLUME 95.3 fL (81.0-99.0); MEAN CORPUSCULAR HEMOGLOBIN 32.3 pg (27.0-31.0); MEAN CORPUSCULAR HGB CONC 33.9 g/dL (33.0-37.0); MEAN PLATELET VOLUME 8.2 fL (7.2-11.7); RBC 3.3 Mil/uL (3.80-5.20); RED CELL DISTRIBUTION WIDTH 14.2 % (11.5-14.5); WHITE BLOOD COUNT 12.3 K/uL (4.8-10.8)
[2018-04-21 08:23] LABS: BLOOD UREA NITROGEN 10 mg/dL (7-17); CALCIUM 6.9 mg/dl (8.6-10.4); GFR AFRICAN-AMERICAN > 60; GFR NON-AFRICAN AMERICAN > 60
[2018-04-21] MEDS ORDERED: Potassium Chloride 20 mEq ER Tab PO SCH (10:00)
[2018-04-21] MEDS: Saccharomyces Boulardi 250 mg Cap PO SCH ×2 (10:05→18:13)
[2018-04-21] MEDS: Potassium Chloride 20 mEq ER Tab PO SCH (10:05)
[2018-04-21] MEDS: Pantoprazole 40 mg EC Tab PO SCH (10:05)
[2018-04-21] MEDS: Cholestyramine 4 gm/Pkt UD PO SCH ×3 (10:06→18:13)
[2018-04-21] MEDS: Enoxaparin 40 mg Syringe SC SCH (10:07)
[2018-04-21] MEDS: Bismuth Subsalicylate 262 mg Chew Tab PO SCH ×4 (10:08→21:09)
[2018-04-21] MEDS ORDERED: Sodium Chloride 0.9% 1,000 ML IV SCH (13:00)
[2018-04-21] MEDS: Calcium-Vit D 500 mg-200 Units Tab UD PO SCH (13:30)
--- NOTE | 2018-04-21 16:01 | CP.PCM.CON ---
History of Present Illness - History of Present Illness History of Present Illness: Patient is a 77 y/o female, with a Hx of ulcerative colitis, who presents to the ED sent by PMD for generalized weakness, diarrhea, and fever for the last 1 week. Patient denies any blood in stool, cough, nausea, vomiting, dysuria, or abdominal pain. In ED, patient tmax is 101. Patient has no other physical complaints at this time. referred for ID eval ? c diff - Medical History PMH: Crohn's Disease Denies: Depression, Diverticulitis, Gastritis, Gall Bladder Disease, HIV, Kidney Stones, Pancreatitis - [facility] Procedures (01/28/18) (01/28/18) (01/28/18) (01/28/18) (01/28/18) CATARAC PHACOEMULS/ASPIR (09/11/13) CLOSED ENDOSCOPIC BIOPSY OF LARGE INTESTINE (02/11/14) CYSTOSCOPY NEC (11/27/06) ESOPHAGOGASTRODUODENOSCOPY [EGD] W/CLOSED BIOPSY (03/01/04) EXCISION OF RECTUM, ENDO, DIAGN (10/07/17) EXCISION OF SIGMOID COLON, ENDO, DIAGN (10/07/17) FLEXIBLE SIGMOIDOSCOPY (03/26/03) INJECT/INFUSE NEC (03/16/06) INSERT LENS AT CATAR EXT (09/11/13) MAGNETIC RESONANCE IMAGING OF SPINAL CANAL (11/28/06) REMOV URETERAL DRAIN (11/27/06) RETROGRADE PYELOGRAM (07/07/14) URETERAL CATHETERIZATION (07/07/14) Review of Systems - Review of Systems All systems: reviewed and no additional remarkable complaints except - Constitutional Constitutional: As Per HPI - EENT Eyes: absent: As Per HPI, Blind Spots, Blurred Vision, Change in Vision, Decreased Night Vision, Diplopia, Discharge, Dry Eye, Exophthalmos, Floaters, Irritation, Itchy Eyes, Loss of Peripheral Vision, Pain, Photophobia, Requires Corrective Lenses, Sees Flashes, Spots in Vision, Tunnel Vision, Other Visual Disturbances, Loss of Vision, Other Ears: absent: As Per HPI, Decreased Hearing, Ear Discharge, Ear Pain, Tinnitus, Abnormal Hearing, Disequilibrium, Dizziness, Other Nose/Mouth/Throat: absent: As Per HPI, Epistaxis, Nasal Congestion, Nasal Discharge, Nasal Obstruction, Nasal Trauma, Nose Pain, Post Nasal Drip, Sinus Pain, Sinus Pressure, Bleeding Gums, Change in Voice, Dental Pain, Dry Mouth, Dysphagia, Halitosis, Hoarsness, Lip Swelling, Mouth Lesions, Mouth Pain, Odynophagia, Sore Throat, Throat Swelling, Tongue Swelling, Facial Pain, Neck Pain, Neck Mass, Other - Breasts Breasts: absent: As Per HPI, Change in Shape, Mass, Pain, Nipple Discharge, Nipple Inversion, Skin Changes, Swelling, Other - Cardiovascular Cardiovascular: absent: As Per HPI, Acrocyanosis, Chest Pain, Chest Pain at Rest , Chest Pain with Activity, Claudication, Diaphoresis, Dyspnea, Dyspnea on Exertion, Edema, Irregular Heart Rhythm, Pain Radiating to Arm/Neck/Jaw, Leg Edema, Leg Ulcers, Lightheadedness, Orthopnea, Palpitations, Paroxysmal Nocturnal Dyspnea, Pedal Edema, Radiating Pain, Rapid Heart Rate, Slow Heart Rate, Syncope, Other - Respiratory Respiratory: absent: As Per HPI, Cough, Dyspnea, Hemoptysis, Dyspnea on Exertion , Wheezing, Snoring, Stridor, Pain on Inspiration, Chest Congestion, Excessive Mucous Production, Change in Mucous Color, Pain with Coughing, Other - Gastrointestinal Gastrointestinal: As Per HPI - Genitourinary Genitourinary: absent: As Per HPI, Change in Urinary Stream, Difficulty Urinating, Dysuria, Flank Pain, Hematuria, Pyuria, Nocturia, Urinary Incontinence, Urinary Frequency, Urinary Hesitance, Urinary Urgency, Voiding Freq/Small Amts, Freq UTI, Hx Renal/Bladder Calculi, Hx /Renal Surgery, Bladder Distension, Other - Reproductive: Female Reproductive:Female: absent: As Per HPI, Amenorrhea, Amenorrhea/ Control, Currently Menstual, Cycle <21 Days, Cycle >35 Days, Cycle Variable, Menses 1-7 Days, Menses >/= 8 Days, Menses Variable, Cycle > 4 Weeks Between, No Menses for 6 Months, Heavy Menses, Light Menses, Normal Menses, Spotting Between Cycles , S/P Hysterectomy, Menopausal, Post Menopausal, Premenarche, Abnormal Vaginal Bleeding, Dysmenorrhea, Dyspareunia, Genital Lesions, Genital Pruritis, Pelvic Pain, Prolapse Symptoms, Sexual Dysfunction, Vaginal Discharge, Vaginal Dryness , Vaginal Odor, Vaginal Pruritis, Other - Menstruation Menstruation: absent: As Per HPI, Amenorrhea, Amenorrhea/ Control, Currently Menstual, Cycle <21 Days, Cycle >35 Days, Cycle Variable, Menses 1-7 Days, Menses >/= 8 Days, Menses Variable, Cycle > 4 Weeks Between, No Menses for 6 Months, Heavy Menses, Light Menses, Normal Menses, Spotting Between Cycles , S/P Hysterectomy, Menopausal, Post Menopausal, Premenarche, Abnormal Vaginal Bleeding, Dysmenorrhea, Other - Musculoskeletal Musculoskeletal: absent: As Per HPI, Abnormal Gait, Arthralgias, Atrophy, Back Pain, Deformity, Joint Swelling, Limited Range of Motion, Loss of Height, Muscle Cramps, Muscle Weakness, Myalgias, Neck Pain, Numbness, Radiating Pain into Limb, Stiffness, Tingling, Other - Integumentary Integumentary: absent: As Per HPI, Acne, Alopecia, Bleeding Lesions, Change in Hair, Change in Nails, Change in Pigmentation, Changing Lesions, Dry Skin, Erythema, Furuncle, Hirsutism, Lesions, New Lesions, Non-Healing Lesions, Photosensitivity, Pruritus, Rash, Skin Pain, Skin Ulcer, Sores, Striae, Swelling , Unusual Bruising, Wounds, Jaundice, Other - Neurological Neurological: absent: As Per HPI, Abnormal Gait, Abnormal Hearing, Abnormal Movements, Abnormal Speech, Behavioral Changes, Burning Sensations, Confusion, Convulsions, Disequilibrium, Dizziness, Numbness, Focal Weakness, Frequent Falls , Headaches, Lack of Coordination, Loss of Vision, Memory Loss, Paresthesias, Radicular Pain, Restless Legs, Sensory Deficit, Syncope, Tingling, Tremor, Vertigo, Weakness, Other Visual Disturbances, Other - Psychiatric Psychiatric: absent: As Per HPI, Abnormal Sleep Pattern, Anhedonia, Anxiety, Auditory Hallucinations, Behavioral Changes, Change in Appetite, Change in Libido, Confusion, Depression, Difficulty Concentrating, Hallucinations, Homicidal Ideation, Hopelessness, Irritability, Memory Loss, Mood Swings, Panic Attacks, Paranoia, Suicidal Ideation, Visual Hallucinations, Tactile Hallucinations, Other - Endocrine Endocrine: absent: As Per HPI, Change in Body Appearance, Change in Libido, Cold Intolorance, Deepening of Voice, Excessive Sweating, Fatigue, Flushing, Heat Intolorance, Increase in Ring/Shoe/Hat Size, Palpitations, Polydipsia, Polyphagia, Polyuria, Other - Hematologic/Lymphatic Hematologic: absent: As Per HPI, Easy Bleeding, Easy Bruising, Lymphadenopathy, Other Past Patient History - Infectious Disease Hx of Infectious Diseases: None - Tetanus Immunizations Tetanus Immunization: Unknown - Past Medical History & Family History Past Medical History?: Yes - Past Social History Smoking Status: Never Smoked - CARDIAC Hx Cardiac Disorders: No - PULMONARY Hx Respiratory Disorders: No - NEUROLOGICAL Hx Neurological Disorder: No - HEENT Hx HEENT Problems: No - RENAL Hx Chronic Kidney Disease: No Hx Kidney Stones: No - ENDOCRINE/METABOLIC Hx Endocrine Disorders: No - HEMATOLOGICAL/ONCOLOGICAL Hx Blood Disorders: No Hx Human Immunodeficiency Virus (HIV): No - INTEGUMENTARY Hx Dermatological Problems: No - MUSCULOSKELETAL/RHEUMATOLOGICAL Hx Musculoskeletal Disorders: Yes Hx Falls: Yes - GASTROINTESTINAL Hx Gastrointestinal Disorders: Yes Hx Crohn's Disease: Yes Hx Diverticulitis: No Hx Gall Bladder Disease: No Hx Gastritis: No Hx Pancreatitis: No - GENITOURINARY/GYNECOLOGICAL Hx Genitourinary Disorders: No (Kidney stones last 2013) - PSYCHIATRIC Hx Psychophysiologic Disorder: No Hx Depression: No Hx Substance Use: No - SURGICAL HISTORY Hx Surgeries: No - ANESTHESIA Hx Anesthesia: No Hx Anesthesia Reactions: No Hx Malignant Hyperthermia: No Meds Allergies/Adverse Reactions: Allergies Allergy/AdvReac Type Severity Reaction Status Date / Time No Known Allergies Allergy Verified 02/22/17 13:09 - Medications Medications: Current Medications Acetaminophen (Tylenol 325mg Tab) 650 mg PO Q6 PRN PRN Reason: Fever >100.4 F Last Admin: 04/21/18 15:42 Dose: 650 mg Bismuth Subsalicylate (Pepto Bismol) 262 mg PO QID [facility] Last Admin: 04/21/18 13:30 Dose: 262 mg Calcium/Vitamin D (Oyster Shell Calcium/Vitamin D 500 Mg-200 Iu) 1 tab PO DAILY [facility] Last Admin: 04/21/18 13:30 Dose: 1 tab Cholestyramine Resin (Questran) 4 gm PO TID [facility] Last Admin: 04/21/18 13:30 Dose: 4 gm Enoxaparin Sodium (Lovenox) 40 mg SC DAILY [facility] Last Admin: 04/21/18 10:07 Dose: 40 mg Gabapentin (Neurontin) 100 mg PO DAILY [facility] Last Admin: 04/21/18 10:05 Dose: 100 mg Lactobacillus Acidophilus (Bacid Acidophilus) 1 cap PO BID [facility] Last Admin: 04/21/18 10:06 Dose: 1 cap Mesalamine (Delzicol Dr) 1,600 mg PO TID [facility] Last Admin: 04/21/18 13:30 Dose: 1,600 mg Metronidazole (Flagyl) 500 mg PO Q8 [facility] PRN Reason: Protocol Last Admin: 04/21/18 13:30 Dose: 500 mg Nortriptyline HCl (Pamelor) 25 mg PO BID [facility] Last Admin: 04/21/18 10:06 Dose: 25 mg Pantoprazole Sodium (Protonix Ec Tab) 40 mg PO DAILY [facility] Last Admin: 04/21/18 10:05 Dose: 40 mg Potassium Chloride (Potassium Chloride Oral Soln) 40 meq PO Q4 [facility] Stop: 04/22/18 00:01 Saccharomyces Boulardii (Florastor) 250 mg PO BID [facility] Last Admin: 04/21/18 10:05 Dose: 250 mg Vancomycin HCl (Vancocin (Oral Or Rectal Use)) 250 mg PO Q6H [facility] PRN Reason: Protocol Last Admin: 04/21/18 10:10 Dose: 250 mg Physical Exam - Constitutional Appears: Non-toxic, Chronically Ill - Head Exam Head Exam: NORMOCEPHALIC - Eye Exam Eye Exam: PERRL. absent: Scleral icterus - ENT Exam ENT Exam: Mucous Membranes Dry - Neck Exam Neck exam: Negative for: Lymphadenopathy - Respiratory Exam Respiratory Exam: Decreased Breath Sounds - Cardiovascular Exam Cardiovascular Exam: REGULAR RHYTHM - GI/Abdominal Exam GI & Abdominal Exam: Diminished Bowel Sounds, Distended, Guarding, Soft, Tenderness. absent: Rebound, Rigid - Rectal Exam Rectal Exam: Deferred - Exam Exam: NORMAL INSPECTION - Extremities Exam Extremities exam: Positive for: pedal pulses present. Negative for: calf tenderness, pedal edema - Back Exam Back exam: absent: CVA tenderness (L), CVA tenderness (R), paraspinal tenderness - Neurological Exam Neurological exam: Alert, CN II-XII Intact, Oriented x3, Reflexes Normal - Psychiatric Exam Psychiatric exam: Normal Mood - Skin Skin Exam: Dry, Intact Results - Vital Signs Recent Vital Signs: Last Vital Signs Temp 100.2 F H 04/21/18 15:42 Pulse 99 H 04/21/18 07:00 Resp 20 04/21/18 07:00 BP 99/59 L 04/21/18 07:00 Pulse Ox 96 04/21/18 07:00 - Labs Result Diagrams: 04/21/18 06:38 04/21/18 06:38 Labs: Laboratory Results - last 24 hr 04/20/18 04/20/18 04/21/18 21:16 21:31 06:38 WBC 12.3 H RBC 3.30 L Hgb 10.7 L Hct 31.4 L MCV 95.3 MCH 32.3 H MCHC 33.9 RDW 14.2 Plt Count 239 MPV 8.2 Sodium Potassium Chloride Carbon Dioxide Anion Gap BUN Creatinine Est GFR ( Amer) Est GFR (Non-Af Amer) Random Glucose Calcium Carcinoembryonic Ag Urine Color Yellow Urine Clarity Hazy Urine pH 5.0 Ur Specific [place] 1.025 Urine Protein Negative Urine Glucose (UA) Normal Urine Ketones Trace Urine Blood 1+ H Urine Nitrate Negative Urine Bilirubin Negative Urine Urobilinogen Normal Ur Leukocyte Esterase 1+ H Urine WBC (Auto) 4 Urine RBC (Auto) 2 Ur Squamous Epith Cells 1 C. difficile Ag & Toxin Positive H 04/21/18 04/21/18 06:38 06:38 WBC RBC Hgb Hct MCV MCH MCHC RDW Plt Count MPV Sodium 134 Potassium 2.7 L Chloride 99 Carbon Dioxide 26 Anion Gap 11 BUN 10 Creatinine 0.5 L Est GFR ( Amer) > 60 Est GFR (Non-Af Amer) > 60 Random Glucose 99 Calcium 6.9 L Carcinoembryonic Ag 1.0 Urine Color Urine Clarity Urine pH Ur Specific [place] Urine Protein Urine Glucose (UA) Urine Ketones Urine Blood Urine Nitrate Urine Bilirubin Urine Urobilinogen Ur Leukocyte Esterase Urine WBC (Auto) Urine RBC (Auto) Ur Squamous Epith Cells C. difficile Ag & Toxin Assessment & Plan (1) Bloody diarrhea Status: Acute (2) Colitis Status: Acute - Assessment and Plan (Free Text) Assessment: admitted with exac colitis + c diff on admission Dr Lemus on consult cont PO antibiotics
[2018-04-21] MEDS: Potassium Chloride 20 mEq/15 ml LIQ UD PO SCH ×2 (16:52→20:03)
--- NOTE | 2018-04-21 17:42 | CP.PCM.HP ---
History of Present Illness - History of Present Illness History of Present Illness: CC: diarrhea HPI: Patient is a 77 y/o female, with a Hx of ulcerative colitis,chronic recurrent diarrhea for last 50 years, on multiple medications, and multiple hosiptalizations in past,also followd by a GI doctor presents to the ED sent by PMD for generalized weakness, diarrhea, and fever for the last 1 week. Patient denies any blood in stool, cough, nausea, vomiting, dysuria, or abdominal pain. In ED, patient tmax is 101. she feels weak and have decreased apetite Present on Admission - Present on Admission Any Indicators Present on Admission: Yes Review of Systems - Review of Systems Systems not reviewed;Unavailable: Acuity of Condition - Constitutional Constitutional: Fatigue, Lethargy, Malaise, Weakness - EENT Eyes: absent: As Per HPI, Blind Spots, Blurred Vision, Change in Vision, Decreased Night Vision, Diplopia, Discharge, Dry Eye, Exophthalmos, Floaters, Irritation, Itchy Eyes, Loss of Peripheral Vision, Pain, Photophobia, Requires Corrective Lenses, Sees Flashes, Spots in Vision, Tunnel Vision, Other Visual Disturbances, Loss of Vision, Other Ears: absent: As Per HPI, Decreased Hearing, Ear Discharge, Ear Pain, Tinnitus, Abnormal Hearing, Disequilibrium, Dizziness, Other Nose/Mouth/Throat: absent: As Per HPI, Epistaxis, Nasal Congestion, Nasal Discharge, Nasal Obstruction, Nasal Trauma, Nose Pain, Post Nasal Drip, Sinus Pain, Sinus Pressure, Bleeding Gums, Change in Voice, Dental Pain, Dry Mouth, Dysphagia, Halitosis, Hoarsness, Lip Swelling, Mouth Lesions, Mouth Pain, Odynophagia, Sore Throat, Throat Swelling, Tongue Swelling, Facial Pain, Neck Pain, Neck Mass, Other - Breasts Breasts: absent: As Per HPI, Change in Shape, Mass, Pain, Nipple Discharge, Nipple Inversion, Skin Changes, Swelling, Other - Cardiovascular Cardiovascular: absent: As Per HPI, Acrocyanosis, Chest Pain, Chest Pain at Rest , Chest Pain with Activity, Claudication, Diaphoresis, Dyspnea, Dyspnea on Exertion, Edema, Irregular Heart Rhythm, Pain Radiating to Arm/Neck/Jaw, Leg Edema, Leg Ulcers, Lightheadedness, Orthopnea, Palpitations, Paroxysmal Nocturnal Dyspnea, Pedal Edema, Radiating Pain, Rapid Heart Rate, Slow Heart Rate, Syncope, Other - Respiratory Respiratory: absent: As Per HPI, Cough, Dyspnea, Hemoptysis, Dyspnea on Exertion , Wheezing, Snoring, Stridor, Pain on Inspiration, Chest Congestion, Excessive Mucous Production, Change in Mucous Color, Pain with Coughing, Other - Gastrointestinal Gastrointestinal: Abdominal Pain, Diarrhea, Nausea. absent: As Per HPI, Belching, Bloating, Change in Bowel Habits, Change in Stool Character, Coffee Ground Emesis, Constipation, Cramping, Dyspepsia, Dysphagia, Early Satiety, Excessive Flatus, Fecal Incontinence, Heartburn, Hematemesis, Hematochezia, Loose Stools, Melena, Odynophagia, Temesmus, Vomiting, Other - Genitourinary Genitourinary: absent: As Per HPI, Change in Urinary Stream, Difficulty Urinating, Dysuria, Flank Pain, Hematuria, Pyuria, Nocturia, Urinary Incontinence, Urinary Frequency, Urinary Hesitance, Urinary Urgency, Voiding Freq/Small Amts, Freq UTI, Hx Renal/Bladder Calculi, Hx /Renal Surgery, Bladder Distension, Other Past Patient History - Infectious Disease Hx of Infectious Diseases: None - Tetanus Immunizations Tetanus Immunization: Unknown - Past Medical History & Family History Past Medical History?: Yes - Past Social History Smoking Status: Never Smoked - CARDIAC Hx Cardiac Disorders: No - PULMONARY Hx Respiratory Disorders: No - NEUROLOGICAL Hx Neurological Disorder: No - HEENT Hx HEENT Problems: No - RENAL Hx Chronic Kidney Disease: No Hx Kidney Stones: No - ENDOCRINE/METABOLIC Hx Endocrine Disorders: No - HEMATOLOGICAL/ONCOLOGICAL Hx Blood Disorders: No Hx Human Immunodeficiency Virus (HIV): No - INTEGUMENTARY Hx Dermatological Problems: No - MUSCULOSKELETAL/RHEUMATOLOGICAL Hx Musculoskeletal Disorders: Yes Hx Falls: Yes - GASTROINTESTINAL Hx Gastrointestinal Disorders: Yes Hx Crohn's Disease: Yes Hx Diverticulitis: No Hx Gall Bladder Disease: No Hx Gastritis: No Hx Pancreatitis: No - GENITOURINARY/GYNECOLOGICAL Hx Genitourinary Disorders: No (Kidney stones last 2013) - PSYCHIATRIC Hx Psychophysiologic Disorder: No Hx Depression: No Hx Substance Use: No - SURGICAL HISTORY Hx Surgeries: No - ANESTHESIA Hx Anesthesia: No Hx Anesthesia Reactions: No Hx Malignant Hyperthermia: No Meds Allergies/Adverse Reactions: Allergies Allergy/AdvReac Type Severity Reaction Status Date / Time No Known Allergies Allergy Verified 02/22/17 13:09 Physical Exam - Constitutional Appears: No Acute Distress, Cachectic - Head Exam Head Exam: ATRAUMATIC, NORMAL INSPECTION, NORMOCEPHALIC - Eye Exam Eye Exam: EOMI, Normal appearance, PERRL Pupil Exam: NORMAL ACCOMODATION, PERRL - Respiratory Exam Respiratory Exam: Clear to Auscultation Bilateral, NORMAL BREATHING PATTERN - Cardiovascular Exam Cardiovascular Exam: REGULAR RHYTHM - GI/Abdominal Exam GI & Abdominal Exam: Hyperactive Bowel Sounds - Rectal Exam Rectal Exam: Deferred Results - Vital Signs Recent Vital Signs: Last Vital Signs Temp 99 F 04/21/18 16:42 Pulse 117 H 04/21/18 15:00 Resp 20 04/21/18 15:00 BP 103/64 04/21/18 15:00 Pulse Ox 97 04/21/18 15:00 - Labs Result Diagrams: 04/21/18 06:38 04/21/18 06:38 Labs: Laboratory Results - last 24 hr 04/20/18 04/20/18 04/21/18 21:16 21:31 06:38 WBC 12.3 H RBC 3.30 L Hgb 10.7 L Hct 31.4 L MCV 95.3 MCH 32.3 H MCHC 33.9 RDW 14.2 Plt Count 239 MPV 8.2 Sodium Potassium Chloride Carbon Dioxide Anion Gap BUN Creatinine Est GFR ( Amer) Est GFR (Non-Af Amer) Random Glucose Calcium Carcinoembryonic Ag Urine Color Yellow Urine Clarity Hazy Urine pH 5.0 Ur Specific [place] 1.025 Urine Protein Negative Urine Glucose (UA) Normal Urine Ketones Trace Urine Blood 1+ H Urine Nitrate Negative Urine Bilirubin Negative Urine Urobilinogen Normal Ur Leukocyte Esterase 1+ H Urine WBC (Auto) 4 Urine RBC (Auto) 2 Ur Squamous Epith Cells 1 C. difficile Ag & Toxin Positive H 04/21/18 04/21/18 06:38 06:38 WBC RBC Hgb Hct MCV MCH MCHC RDW Plt Count MPV Sodium 134 Potassium 2.7 L Chloride 99 Carbon Dioxide 26 Anion Gap 11 BUN 10 Creatinine 0.5 L Est GFR ( Amer) > 60 Est GFR (Non-Af Amer) > 60 Random Glucose 99 Calcium 6.9 L Carcinoembryonic Ag 1.0 Urine Color Urine Clarity Urine pH Ur Specific [place] Urine Protein Urine Glucose (UA) Urine Ketones Urine Blood Urine Nitrate Urine Bilirubin Urine Urobilinogen Ur Leukocyte Esterase Urine WBC (Auto) Urine RBC (Auto) Ur Squamous Epith Cells C. difficile Ag & Toxin Assessment & Plan (1) C. difficile diarrhea Assessment and Plan: ID consult antibiotics Status: Acute (2) Diarrhea Status: Acute Priority: High (3) Ulcerative colitis, chronic Status: Chronic Priority: High
[2018-04-22] MEDS: Potassium Chloride 20 mEq/15 ml LIQ UD PO SCH (00:32)
[2018-04-22] MEDS: Vancomycin 125 MG/5 ML SOLN (ORAL/RECTAL) PO SCH ×4 (05:54→22:15)
[2018-04-22 07:08] LABS: HEMOGLOBIN 11.5 g/dL (11.0-16.0); MEAN CELL VOLUME 95.9 fL (81.0-99.0); MEAN CORPUSCULAR HEMOGLOBIN 31.9 pg (27.0-31.0); MEAN CORPUSCULAR HGB CONC 33.3 g/dL (33.0-37.0); RBC 3.6 Mil/uL (3.80-5.20); WHITE BLOOD COUNT 8.9 K/uL (4.8-10.8)
[2018-04-22 07:17] LABS: BLOOD UREA NITROGEN 9 mg/dL (7-17); CALCIUM 7.1 mg/dl (8.6-10.4); GFR AFRICAN-AMERICAN > 60; GFR NON-AFRICAN AMERICAN > 60
[2018-04-22] MEDS: Saccharomyces Boulardi 250 mg Cap PO SCH ×2 (09:00→17:33)
[2018-04-22] MEDS: Pantoprazole 40 mg EC Tab PO SCH (09:00)
[2018-04-22] MEDS: Enoxaparin 40 mg Syringe SC SCH (09:00)
[2018-04-22] MEDS: Bismuth Subsalicylate 262 mg Chew Tab PO SCH ×4 (09:01→21:24)
[2018-04-22] MEDS: Cholestyramine 4 gm/Pkt UD PO SCH ×3 (09:01→17:33)
[2018-04-22] MEDS: Calcium-Vit D 500 mg-200 Units Tab UD PO SCH (09:08)
[2018-04-22] MEDS: Lactobacillus Acidophilus 500 MU Cap PO SCH ×2 (09:08→17:40)
--- NOTE | 2018-04-22 09:33 | CON ---
DATE: 04/21/[address] Verde to Dr. Brenton Shaw. I was called for GI consultation by the admitting MD. The patient is seen and fully examined on 04/21/2018 as requested by the admitting medical staff. The entire chart is reviewed including but not limited to most recent lab and radiology study results, current and the previous medication lists, current and the previous medical events, allergies to medication list as well as all the available current and the previous medical records. HISTORY OF PRESENT ILLNESS: This 77-year-old female with a reported history of ulcerative colitis was admitted to the hospital through the emergency room with a main complaint of recurrent diarrhea, generalized weakness and fatigue, fever for the last 5-7 days prior to admission with intermittent period of nausea and dyspepsia, but no vomiting, no chest pain or palpitation or reported significant shortness of breath. The patient denied any recent history of rectal bleeding. PAST MEDICAL HISTORY: Including but not limited to: 1. Inflammatory bowel disease. 2. Peptic ulcer disease. 3. Recent upper and lower endoscopy as reported by history. 4. The patient had cataract surgery. FAMILY HISTORY: Unknown. CURRENT MEDICATIONS: Post-admission medication list was reviewed. SOCIAL HISTORY: No reported known history of cigarette smoking or alcohol intake. After being admitted to the hospital, the patient was found to have leukocytosis of 13.4, but so far normal hemoglobin and hematocrit with a blood glucose level of 121, low potassium of 3 with a creatinine of 0.5. PHYSICAL EXAMINATION: GENERAL: A 77-year-old female, appeared to be awake, alert, oriented with a low-grade temperature of 99.6. VITAL SIGNS: Pulse of 86, respiratory rate 20 to 22, blood pressure 104/64. HEENT: Showed pale, dry oral mucous membrane, mildly nonicteric sclerae. LUNGS: Few scattered crepitation. Decreased air entry at bases. HEART: Positive S1 and S2. LYMPH NODES: No lymphadenitis or lymphadenopathy. ABDOMEN: Soft with generalized tenderness and mild distention. No mass or organomegaly. No rebound tenderness or guarding. EXTREMITIES: Without significant clubbing, cyanosis or edema. RECTAL EXAMINATION: The patient refused. NEUROLOGIC: No reported new neurological deficits, sensory or motor. IMPRESSION: 1. Re-exacerbation of inflammatory bowel disease. 2. To rule out partial colon obstruction. 3. Re-exacerbation of peptic ulcer disease. SUGGESTIONS: 1. Agree with your plan. 2. Sedimentation rate. 3. Cancer markers including CEA. 4. Laxative. 5. Proton pump inhibitors. 6. Reglan IV. 7. Further recommendation to follow. Alvarado Verde MD
--- NOTE | 2018-04-22 11:33 | CP.PCM.PN ---
Subjective - Date & Time of Evaluation Date of Evaluation: 04/22/18 Time of Evaluation: 08:00 - Subjective Subjective: C DIFF + IMPROVING LESS PAIN NO FEVER Objective - Vital Signs/Intake and Output Vital Signs (last 24 hours): Temp Pulse Resp BP Pulse Ox 98.5 F 86 20 106/64 99 04/22/18 07:00 04/22/18 07:00 04/22/18 07:00 04/22/18 07:00 04/22/18 08:57 Intake and Output: 04/22/18 04/22/18 06:59 18:59 Intake Total 1320 Balance 1320 - Medications Medications: Current Medications Acetaminophen (Tylenol 325mg Tab) 650 mg PO Q6 PRN PRN Reason: Fever >100.4 F Last Admin: 04/21/18 15:42 Dose: 650 mg Bismuth Subsalicylate (Pepto Bismol) 262 mg PO QID [facility] Last Admin: 04/22/18 09:01 Dose: 262 mg Calcium/Vitamin D (Oyster Shell Calcium/Vitamin D 500 Mg-200 Iu) 1 tab PO DAILY [facility] Last Admin: 04/22/18 09:08 Dose: 1 tab Cholestyramine Resin (Questran) 4 gm PO TID [facility] Last Admin: 04/22/18 09:01 Dose: 4 gm Enoxaparin Sodium (Lovenox) 40 mg SC DAILY [facility] Last Admin: 04/22/18 09:00 Dose: 40 mg Gabapentin (Neurontin) 100 mg PO DAILY [facility] Last Admin: 04/22/18 09:00 Dose: 100 mg Lactobacillus Acidophilus (Bacid Acidophilus) 1 cap PO BID [facility] Last Admin: 04/22/18 09:08 Dose: 1 cap Mesalamine (Delzicol Dr) 1,600 mg PO TID [facility] Last Admin: 04/22/18 09:02 Dose: 1,600 mg Metronidazole (Flagyl) 500 mg PO Q8 [facility] PRN Reason: Protocol Last Admin: 04/22/18 05:54 Dose: 500 mg Nortriptyline HCl (Pamelor) 25 mg PO BID [facility] Last Admin: 04/22/18 09:01 Dose: 25 mg Pantoprazole Sodium (Protonix Ec Tab) 40 mg PO DAILY [facility] Last Admin: 04/22/18 09:00 Dose: 40 mg Saccharomyces Boulardii (Florastor) 250 mg PO BID [facility] Last Admin: 04/22/18 09:00 Dose: 250 mg Vancomycin HCl (Vancocin (Oral Or Rectal Use)) 250 mg PO Q6H [facility] PRN Reason: Protocol Last Admin: 04/22/18 10:18 Dose: 250 mg - Labs Labs: 04/22/18 06:48 04/22/18 06:48 - Constitutional Appears: Non-toxic, Chronically Ill - Head Exam Head Exam: NORMOCEPHALIC - Eye Exam Eye Exam: PERRL - ENT Exam ENT Exam: Mucous Membranes Dry - Neck Exam Neck Exam: absent: Lymphadenopathy - Respiratory Exam Respiratory Exam: Decreased Breath Sounds - Cardiovascular Exam Cardiovascular Exam: REGULAR RHYTHM - GI/Abdominal Exam GI & Abdominal Exam: Distended - Rectal Exam Rectal Exam: Deferred - Exam Exam: NORMAL INSPECTION Assessment and Plan (1) Bloody diarrhea Status: Acute (2) Colitis Status: Acute - Assessment and Plan (Free Text) Assessment: CONT IV AND PO RX
--- NOTE | 2018-04-22 16:05 | CP.PCM.PN ---
Subjective - Date & Time of Evaluation Date of Evaluation: 04/22/18 Time of Evaluation: 16:01 - Subjective Subjective: PATIENT SEEN AND EXAMINED PATIENT AAO X 3 NO SIGN DISTRESS NOTED PATIENT WAS SEEN BY DR SINGLETARY FOR C DIFF BUT SHE PREFER TO BE EVALUATED BY DR CLARK HER GI DOCTOR OUT PATIENT CONSULT WAS CHANGE TO DR CLARK SERVICE AND DR SINGLETARY AND DR PALOMO MADE AWARE Objective - Vital Signs/Intake and Output Vital Signs (last 24 hours): Temp Pulse Resp BP Pulse Ox 98.5 F 86 20 106/64 99 04/22/18 07:00 04/22/18 07:00 04/22/18 07:00 04/22/18 07:00 04/22/18 08:57 Intake and Output: 04/22/18 04/22/18 06:59 18:59 Intake Total 1320 300 Balance 1320 300 - Medications Medications: Current Medications Acetaminophen (Tylenol 325mg Tab) 650 mg PO Q6 PRN PRN Reason: Fever >100.4 F Last Admin: 04/21/18 15:42 Dose: 650 mg Bismuth Subsalicylate (Pepto Bismol) 262 mg PO QID [facility] Last Admin: 04/22/18 13:04 Dose: 262 mg Calcium/Vitamin D (Oyster Shell Calcium/Vitamin D 500 Mg-200 Iu) 1 tab PO DAILY [facility] Last Admin: 04/22/18 09:08 Dose: 1 tab Cholestyramine Resin (Questran) 4 gm PO TID [facility] Last Admin: 04/22/18 13:05 Dose: 4 gm Enoxaparin Sodium (Lovenox) 40 mg SC DAILY [facility] Last Admin: 04/22/18 09:00 Dose: 40 mg Gabapentin (Neurontin) 100 mg PO DAILY [facility] Last Admin: 04/22/18 09:00 Dose: 100 mg Lactobacillus Acidophilus (Bacid Acidophilus) 1 cap PO BID [facility] Last Admin: 04/22/18 09:08 Dose: 1 cap Mesalamine (Delzicol Dr) 1,600 mg PO TID [facility] Last Admin: 04/22/18 13:04 Dose: 1,600 mg Metronidazole (Flagyl) 500 mg PO Q8 [facility] PRN Reason: Protocol Last Admin: 04/22/18 13:03 Dose: 500 mg Nortriptyline HCl (Pamelor) 25 mg PO BID [facility] Last Admin: 04/22/18 09:01 Dose: 25 mg Pantoprazole Sodium (Protonix Ec Tab) 40 mg PO DAILY [facility] Last Admin: 04/22/18 09:00 Dose: 40 mg Saccharomyces Boulardii (Florastor) 250 mg PO BID [facility] Last Admin: 04/22/18 09:00 Dose: 250 mg Vancomycin HCl (Vancocin (Oral Or Rectal Use)) 250 mg PO Q6H [facility] PRN Reason: Protocol Last Admin: 04/22/18 10:18 Dose: 250 mg - Labs Labs: 04/22/18 06:48 04/22/18 06:48
--- NOTE | 2018-04-22 16:19 | PN ---
DATE: 04/22/2018 LOCATION: 550, bed A. SUBJECTIVE: This is a 77-year-old female seen and examined in rounds today without significant clinical changes or reported active bleeding with intermittent period of crampy abdominal pain, generalized weakness, and malaise. The entire chart is reviewed including, but not limited to the most recent lab and radiology study results, current and the previous medication list, current and the previous medical events, and the patient denied any chest pain, palpitation, or significant shortness of breath or chills or fever. Today's lab showed normal CBC, creatinine 0.5, blood glucose level 108, calcium 7.1 with normal CEA level. Stool for C. diff toxin reported to be positive. PHYSICAL EXAMINATION: GENERAL: A 77-year-old female, awake, alert, oriented. VITAL SIGNS: Afebrile with pulse of 84, respiratory rate 20 to 22, blood pressure 112/66. HEENT: Showed mildly dry oral mucous membrane, nonicteric sclerae. LUNGS: Few scattered crepitation. Decreased air entry at bases. HEART: Positive S1 and S2. ABDOMEN: Soft with generalized tenderness. No masses or organomegaly. No rebound tenderness or guarding. EXTREMITIES: Significant clubbing, cyanosis, or edema. NEUROLOGIC: No reported new neurological deficits, sensory, or motor. IMPRESSION: 1. Re-exacerbation of inflammatory bowel disease. 2. Re-exacerbation of peptic ulcer disease. 3. To rule out partial colon obstruction, less likely. SUGGESTION: 1. Continue current management. 2. The patient may need endoscopic evaluation of the lower GI tract when she is more stable clinically. 3. Further recommendations to follow. Alvarado Verde MD
--- NOTE | 2018-04-22 23:45 | CP.PCM.PN ---
Subjective - Date & Time of Evaluation Date of Evaluation: 04/22/18 Time of Evaluation: 18:00 - Subjective Subjective: Pt still have persistant diarrhea which is intense, she is afebrile, on oral vancomycin, her wbc count went down, K has been repplaced, pt is to be seen by GI doctor out patient Objective - Vital Signs/Intake and Output Vital Signs (last 24 hours): Temp Pulse Resp BP Pulse Ox 98.2 F 92 H 20 124/78 96 04/22/18 15:15 04/22/18 15:15 04/22/18 15:15 04/22/18 15:15 04/22/18 15:15 Intake and Output: 04/22/18 04/23/18 18:59 06:59 Intake Total 300 720 Balance 300 720 - Medications Medications: Current Medications Acetaminophen (Tylenol 325mg Tab) 650 mg PO Q6 PRN PRN Reason: Fever >100.4 F Last Admin: 04/21/18 15:42 Dose: 650 mg Bismuth Subsalicylate (Pepto Bismol) 262 mg PO QID [facility] Last Admin: 04/22/18 21:24 Dose: 262 mg Calcium/Vitamin D (Oyster Shell Calcium/Vitamin D 500 Mg-200 Iu) 1 tab PO DAILY [facility] Last Admin: 04/22/18 09:08 Dose: 1 tab Cholestyramine Resin (Questran) 4 gm PO TID [facility] Last Admin: 04/22/18 17:33 Dose: 4 gm Enoxaparin Sodium (Lovenox) 40 mg SC DAILY [facility] Last Admin: 04/22/18 09:00 Dose: 40 mg Gabapentin (Neurontin) 100 mg PO DAILY [facility] Last Admin: 04/22/18 09:00 Dose: 100 mg Lactobacillus Acidophilus (Bacid Acidophilus) 1 cap PO BID [facility] Last Admin: 04/22/18 17:40 Dose: 1 cap Mesalamine (Delzicol Dr) 1,600 mg PO TID [facility] Last Admin: 04/22/18 17:32 Dose: 1,600 mg Metronidazole (Flagyl) 500 mg PO Q8 [facility] PRN Reason: Protocol Last Admin: 04/22/18 21:23 Dose: 500 mg Nortriptyline HCl (Pamelor) 25 mg PO BID [facility] Last Admin: 04/22/18 17:32 Dose: 25 mg Pantoprazole Sodium (Protonix Ec Tab) 40 mg PO DAILY [facility] Last Admin: 04/22/18 09:00 Dose: 40 mg Saccharomyces Boulardii (Florastor) 250 mg PO BID [facility] Last Admin: 04/22/18 17:33 Dose: 250 mg Vancomycin HCl (Vancocin (Oral Or Rectal Use)) 250 mg PO Q6H [facility] PRN Reason: Protocol Last Admin: 04/22/18 22:15 Dose: 250 mg - Labs Labs: 04/22/18 06:48 04/22/18 06:48 - Constitutional Appears: No Acute Distress - Head Exam Head Exam: ATRAUMATIC, NORMAL INSPECTION, NORMOCEPHALIC - Eye Exam Eye Exam: EOMI, Normal appearance, PERRL Pupil Exam: NORMAL ACCOMODATION, PERRL - Respiratory Exam Respiratory Exam: Decreased Breath Sounds, Rales, Rhonchi - Cardiovascular Exam Cardiovascular Exam: REGULAR RHYTHM, +S1, +S2. absent: Murmur - GI/Abdominal Exam GI & Abdominal Exam: Soft, Normal Bowel Sounds. absent: Tenderness Assessment and Plan (1) C. difficile diarrhea Status: Acute (2) Diarrhea Status: Acute (3) Ulcerative colitis, chronic Status: Chronic
[2018-04-23] MEDS: Vancomycin 125 MG/5 ML SOLN (ORAL/RECTAL) PO SCH ×4 (04:53→22:53)
[2018-04-23 07:55] LABS: BASO % 0.3 % (0.0-2.0); EOS # 0.5 K/uL (0.0-0.7); EOS % 7.3 % (0.0-4.0); HEMOGLOBIN 11.7 g/dL (11.0-16.0); LYMPH # 1.4 K/uL (1.0-4.3); LYMPH % 20.4 % (20.0-40.0); MEAN CELL VOLUME 94.8 fL (81.0-99.0); MEAN CORPUSCULAR HEMOGLOBIN 32.7 pg (27.0-31.0); MEAN CORPUSCULAR HGB CONC 34.4 g/dL (33.0-37.0); MEAN PLATELET VOLUME 8.8 fL (7.2-11.7); MONO # 0.8 K/uL (0.0-0.8); MONO % 12.2 % (0.0-10.0); NEUT # 4.2 K/uL (1.8-7.0); NEUT % 59.8 % (50.0-75.0); RBC 3.57 Mil/uL (3.80-5.20); RED CELL DISTRIBUTION WIDTH 14.6 % (11.5-14.5); WHITE BLOOD COUNT 6.9 K/uL (4.8-10.8)
[2018-04-23 08:09] LABS: ALB/GLOB RATIO 0.9 (1.0-2.1); ALBUMIN 2.4 g/dL (3.5-5.0); ALT/SGPT 34 U/L (9-52); AST/SGOT 31 U/L (14-36); BLOOD UREA NITROGEN 7 mg/dL (7-17); CALCIUM 7.5 mg/dl (8.6-10.4); GFR AFRICAN-AMERICAN > 60; GFR NON-AFRICAN AMERICAN > 60
--- NOTE | 2018-04-23 09:00 | PN ---
DATE: 04/23/2018 LOCATION: 550, bed A. I was informed late last night that the patient had been seen before by Dr. Lemus which I was not informed by the patient before as I was called by the medical staff for that new information. At this point, I will sign up the case and Dr. Lemus will follow up the patient as in and outpatient. If I am needed for any further help, please contact me. Alvarado Verde MD
[2018-04-23] MEDS ORDERED: Potassium Chloride 20 mEq ER Tab PO SCH (10:00)
[2018-04-23] MEDS: Pantoprazole 40 mg EC Tab PO SCH (10:42)
[2018-04-23] MEDS: Calcium-Vit D 500 mg-200 Units Tab UD PO SCH (10:42)
[2018-04-23] MEDS: Cholestyramine 4 gm/Pkt UD PO SCH ×3 (10:42→17:21)
[2018-04-23] MEDS: Saccharomyces Boulardi 250 mg Cap PO SCH ×2 (10:42→17:21)
[2018-04-23] MEDS: Lactobacillus Acidophilus 500 MU Cap PO SCH ×2 (10:43→17:21)
[2018-04-23] MEDS: Enoxaparin 40 mg Syringe SC SCH (10:43)
[2018-04-23] MEDS: Bismuth Subsalicylate 262 mg Chew Tab PO SCH ×4 (10:43→21:24)
--- NOTE | 2018-04-23 11:41 | CP.PCM.PN ---
Subjective - Date & Time of Evaluation Date of Evaluation: 04/23/18 Time of Evaluation: 08:00 - Subjective Subjective: GI eval in progress cont rx Objective - Vital Signs/Intake and Output Vital Signs (last 24 hours): Temp Pulse Resp BP Pulse Ox 98.2 F 77 20 103/61 97 04/23/18 07:00 04/23/18 07:00 04/23/18 07:00 04/23/18 07:00 04/23/18 07:00 Intake and Output: 04/23/18 04/23/18 06:59 18:59 Intake Total 720 Balance 720 - Medications Medications: Current Medications Acetaminophen (Tylenol 325mg Tab) 650 mg PO Q6 PRN PRN Reason: Fever >100.4 F Last Admin: 04/21/18 15:42 Dose: 650 mg Bismuth Subsalicylate (Pepto Bismol) 262 mg PO QID [facility] Last Admin: 04/23/18 10:43 Dose: 262 mg Calcium/Vitamin D (Oyster Shell Calcium/Vitamin D 500 Mg-200 Iu) 1 tab PO DAILY [facility] Last Admin: 04/23/18 10:42 Dose: 1 tab Cholestyramine Resin (Questran) 4 gm PO TID [facility] Last Admin: 04/23/18 10:42 Dose: 4 gm Enoxaparin Sodium (Lovenox) 40 mg SC DAILY [facility] Last Admin: 04/23/18 10:43 Dose: 40 mg Gabapentin (Neurontin) 100 mg PO DAILY [facility] Last Admin: 04/23/18 10:42 Dose: 100 mg Lactobacillus Acidophilus (Bacid Acidophilus) 1 cap PO BID [facility] Last Admin: 04/23/18 10:43 Dose: 1 cap Mesalamine (Delzicol Dr) 1,600 mg PO TID [facility] Last Admin: 04/23/18 10:43 Dose: 1,600 mg Metronidazole (Flagyl) 500 mg PO Q8 [facility] PRN Reason: Protocol Last Admin: 04/23/18 06:17 Dose: 500 mg Nortriptyline HCl (Pamelor) 25 mg PO BID [facility] Last Admin: 04/23/18 10:42 Dose: 25 mg Pantoprazole Sodium (Protonix Ec Tab) 40 mg PO DAILY [facility] Last Admin: 04/23/18 10:42 Dose: 40 mg Saccharomyces Boulardii (Florastor) 250 mg PO BID [facility] Last Admin: 04/23/18 10:42 Dose: 250 mg Vancomycin HCl (Vancocin (Oral Or Rectal Use)) 250 mg PO Q6H [facility] PRN Reason: Protocol Last Admin: 04/23/18 10:42 Dose: 250 mg - Labs Labs: 04/23/18 07:43 04/23/18 07:43 - Constitutional Appears: Non-toxic - Head Exam Head Exam: NORMOCEPHALIC - Eye Exam Eye Exam: PERRL - ENT Exam ENT Exam: Mucous Membranes Dry - Neck Exam Neck Exam: absent: Lymphadenopathy - Respiratory Exam Respiratory Exam: Decreased Breath Sounds - Cardiovascular Exam Cardiovascular Exam: REGULAR RHYTHM - GI/Abdominal Exam GI & Abdominal Exam: Distended - Rectal Exam Rectal Exam: Deferred Assessment and Plan (1) Bloody diarrhea Status: Acute (2) Colitis Status: Acute
--- NOTE | 2018-04-23 17:39 | CP.PCM.PN ---
Subjective - Date & Time of Evaluation Date of Evaluation: 04/23/18 Time of Evaluation: 17:36 - Subjective Subjective: Patient continues to complain of frequent, watery diarrhea. She also complains of nausea and loss of appetitie. She denies having vomiting, heartburn, difficulty swallowing, and rectal bleeding. Objective - Vital Signs/Intake and Output Vital Signs (last 24 hours): Temp Pulse Resp BP Pulse Ox 97.6 F 88 20 115/70 95 04/23/18 15:48 04/23/18 15:48 04/23/18 15:48 04/23/18 15:48 04/23/18 15:48 Intake and Output: 04/23/18 04/23/18 06:59 18:59 Intake Total 720 600 Balance 720 600 - Medications Medications: Current Medications Acetaminophen (Tylenol 325mg Tab) 650 mg PO Q6 PRN PRN Reason: Fever >100.4 F Last Admin: 04/21/18 15:42 Dose: 650 mg Bismuth Subsalicylate (Pepto Bismol) 262 mg PO QID [facility] Last Admin: 04/23/18 17:22 Dose: 262 mg Calcium/Vitamin D (Oyster Shell Calcium/Vitamin D 500 Mg-200 Iu) 1 tab PO DAILY [facility] Last Admin: 04/23/18 10:42 Dose: 1 tab Cholestyramine Resin (Questran) 4 gm PO TID [facility] Last Admin: 04/23/18 17:21 Dose: 4 gm Enoxaparin Sodium (Lovenox) 40 mg SC DAILY [facility] Last Admin: 04/23/18 10:43 Dose: 40 mg Gabapentin (Neurontin) 100 mg PO DAILY [facility] Last Admin: 04/23/18 10:42 Dose: 100 mg Lactobacillus Acidophilus (Bacid Acidophilus) 1 cap PO BID [facility] Last Admin: 04/23/18 17:21 Dose: 1 cap Mesalamine (Delzicol Dr) 1,600 mg PO TID [facility] Last Admin: 04/23/18 17:21 Dose: 1,600 mg Metronidazole (Flagyl) 500 mg PO Q8 [facility] PRN Reason: Protocol Last Admin: 04/23/18 14:21 Dose: 500 mg Nortriptyline HCl (Pamelor) 25 mg PO BID [facility] Last Admin: 04/23/18 17:21 Dose: 25 mg Pantoprazole Sodium (Protonix Ec Tab) 40 mg PO DAILY [facility] Last Admin: 04/23/18 10:42 Dose: 40 mg Saccharomyces Boulardii (Florastor) 250 mg PO BID [facility] Last Admin: 04/23/18 17:21 Dose: 250 mg Vancomycin HCl (Vancocin (Oral Or Rectal Use)) 250 mg PO Q6H [facility] PRN Reason: Protocol Last Admin: 04/23/18 17:25 Dose: 250 mg - Labs Labs: 04/23/18 07:43 04/23/18 07:43 - Constitutional Appears: No Acute Distress - Head Exam Head Exam: ATRAUMATIC, NORMOCEPHALIC - Eye Exam Eye Exam: EOMI, PERRL - Neck Exam Neck Exam: absent: Lymphadenopathy, Thyromegaly - Respiratory Exam Respiratory Exam: NORMAL BREATHING PATTERN. absent: Rales, Rhonchi, Wheezes - Cardiovascular Exam Cardiovascular Exam: REGULAR RHYTHM, +S1, +S2. absent: Gallop, Rubs, Murmur - GI/Abdominal Exam GI & Abdominal Exam: Soft, Normal Bowel Sounds. absent: Tenderness, Mass, Organomegaly - Rectal Exam Rectal Exam: Deferred - Extremities Exam Extremities Exam: absent: Calf Tenderness, Pedal Edema Assessment and Plan (1) C. difficile diarrhea Assessment & Plan: Patient continues to complain of frequent diarrhea. Will increase cholestyramine to four times daily at 9-3-9-3 so as not to interfere with vancomycin. Status: Acute
[2018-04-23] MEDS ORDERED: Cholestyramine 4 gm/Pkt UD PO SCH (21:00)
[2018-04-24] MEDS ORDERED: Cholestyramine 4 gm/Pkt UD PO SCH (01:45)
[2018-04-24] MEDS: Cholestyramine 4 gm/Pkt UD PO SCH ×4 (02:36→20:10)
[2018-04-24] MEDS: Vancomycin 125 MG/5 ML SOLN (ORAL/RECTAL) PO SCH ×4 (05:30→22:10)
[2018-04-24 08:48] LABS: BASO % 0.6 % (0.0-2.0); EOS # 0.7 K/uL (0.0-0.7); EOS % 10.2 % (0.0-4.0); HEMOGLOBIN 12.1 g/dL (11.0-16.0); LYMPH # 1.7 K/uL (1.0-4.3); LYMPH % 23.6 % (20.0-40.0); MEAN CELL VOLUME 94.3 fL (81.0-99.0); MEAN CORPUSCULAR HEMOGLOBIN 32.7 pg (27.0-31.0); MEAN CORPUSCULAR HGB CONC 34.7 g/dL (33.0-37.0); MEAN PLATELET VOLUME 9.7 fL (7.2-11.7); MONO % 13.9 % (0.0-10.0); NEUT # 3.7 K/uL (1.8-7.0); NEUT % 51.7 % (50.0-75.0); NRBC % 0.2 % (0.0-2.0); RBC 3.69 Mil/uL (3.80-5.20); RED CELL DISTRIBUTION WIDTH 14.7 % (11.5-14.5); WHITE BLOOD COUNT 7.1 K/uL (4.8-10.8)
--- NOTE | 2018-04-24 09:15 | CP.PCM.PN ---
Subjective - Date & Time of Evaluation Date of Evaluation: 04/23/18 Time of Evaluation: 20:00 - Subjective Subjective: Patient continues to complain of frequent, watery diarrhea. She also complains of nausea and loss of appetitie. She denies having vomiting, heartburn, difficulty swallowing, and rectal bleeding. Objective - Vital Signs/Intake and Output Vital Signs (last 24 hours): Temp Pulse Resp BP Pulse Ox 98.3 F 76 20 133/78 99 04/24/18 07:00 04/24/18 07:00 04/24/18 07:00 04/24/18 07:00 04/24/18 07:00 Intake and Output: 04/24/18 04/24/18 06:59 18:59 Intake Total 1000 Balance 1000 - Medications Medications: Current Medications Acetaminophen (Tylenol 325mg Tab) 650 mg PO Q6 PRN PRN Reason: Fever >100.4 F Last Admin: 04/21/18 15:42 Dose: 650 mg Bismuth Subsalicylate (Pepto Bismol) 262 mg PO QID [facility] Last Admin: 04/23/18 21:24 Dose: 262 mg Calcium/Vitamin D (Oyster Shell Calcium/Vitamin D 500 Mg-200 Iu) 1 tab PO DAILY [facility] Last Admin: 04/23/18 10:42 Dose: 1 tab Cholestyramine Resin (Questran) 4 gm PO Q6H [facility] Last Admin: 04/24/18 02:36 Dose: 4 gm Enoxaparin Sodium (Lovenox) 40 mg SC DAILY [facility] Last Admin: 04/23/18 10:43 Dose: 40 mg Gabapentin (Neurontin) 100 mg PO DAILY [facility] Last Admin: 04/23/18 10:42 Dose: 100 mg Lactobacillus Acidophilus (Bacid Acidophilus) 1 cap PO BID [facility] Last Admin: 04/23/18 17:21 Dose: 1 cap Mesalamine (Delzicol Dr) 1,600 mg PO TID [facility] Last Admin: 04/23/18 17:21 Dose: 1,600 mg Metronidazole (Flagyl) 500 mg PO Q8 [facility] PRN Reason: Protocol Last Admin: 04/24/18 05:30 Dose: 500 mg Nortriptyline HCl (Pamelor) 25 mg PO BID [facility] Last Admin: 04/23/18 17:21 Dose: 25 mg Pantoprazole Sodium (Protonix Ec Tab) 40 mg PO DAILY [facility] Last Admin: 04/23/18 10:42 Dose: 40 mg Saccharomyces Boulardii (Florastor) 250 mg PO BID [facility] Last Admin: 04/23/18 17:21 Dose: 250 mg Vancomycin HCl (Vancocin (Oral Or Rectal Use)) 250 mg PO Q6H [facility] PRN Reason: Protocol Last Admin: 04/24/18 05:30 Dose: 250 mg - Labs Labs: 04/24/18 08:27 04/23/18 07:43 - Constitutional Appears: No Acute Distress - Head Exam Head Exam: ATRAUMATIC, NORMAL INSPECTION, NORMOCEPHALIC - Eye Exam Eye Exam: EOMI, Normal appearance, PERRL Pupil Exam: NORMAL ACCOMODATION, PERRL - ENT Exam ENT Exam: Mucous Membranes Moist, Normal Exam - Neck Exam Neck Exam: Full ROM, Normal Inspection. absent: Lymphadenopathy - Respiratory Exam Respiratory Exam: Clear to Ausculation Bilateral, NORMAL BREATHING PATTERN - Cardiovascular Exam Cardiovascular Exam: REGULAR RHYTHM, +S1, +S2. absent: Murmur - GI/Abdominal Exam GI & Abdominal Exam: Soft, Normal Bowel Sounds. absent: Tenderness - Rectal Exam Rectal Exam: NORMAL INSPECTION Assessment and Plan (1) C. difficile diarrhea Status: Acute (2) Diarrhea Status: Acute (3) Ulcerative colitis, chronic Status: Chronic
[2018-04-24 09:16] LABS: ALB/GLOB RATIO 0.9 (1.0-2.1); ALBUMIN 2.6 g/dL (3.5-5.0); ALT/SGPT 29 U/L (9-52); AST/SGOT 43 U/L (14-36); BLOOD UREA NITROGEN 9 mg/dL (7-17); CALCIUM 7.9 mg/dl (8.6-10.4); GFR AFRICAN-AMERICAN > 60; GFR NON-AFRICAN AMERICAN > 60
--- NOTE | 2018-04-24 09:23 | CP.PCM.PN ---
Subjective - Date & Time of Evaluation Date of Evaluation: 04/24/18 Time of Evaluation: 19:00 - Subjective Subjective: Patient continues to complain of frequent, watery diarrhea. She also complains of nausea and loss of appetitie. She denies having vomiting, heartburn, difficulty swallowing, and rectal bleeding. Objective - Vital Signs/Intake and Output Vital Signs (last 24 hours): Temp Pulse Resp BP Pulse Ox 98.3 F 76 20 133/78 99 04/24/18 07:00 04/24/18 07:00 04/24/18 07:00 04/24/18 07:00 04/24/18 07:00 Intake and Output: 04/24/18 04/24/18 06:59 18:59 Intake Total 1000 Balance 1000 - Medications Medications: Current Medications Acetaminophen (Tylenol 325mg Tab) 650 mg PO Q6 PRN PRN Reason: Fever >100.4 F Last Admin: 04/21/18 15:42 Dose: 650 mg Bismuth Subsalicylate (Pepto Bismol) 262 mg PO QID [facility] Last Admin: 04/23/18 21:24 Dose: 262 mg Calcium/Vitamin D (Oyster Shell Calcium/Vitamin D 500 Mg-200 Iu) 1 tab PO DAILY [facility] Last Admin: 04/23/18 10:42 Dose: 1 tab Cholestyramine Resin (Questran) 4 gm PO Q6H [facility] Last Admin: 04/24/18 02:36 Dose: 4 gm Enoxaparin Sodium (Lovenox) 40 mg SC DAILY [facility] Last Admin: 04/23/18 10:43 Dose: 40 mg Gabapentin (Neurontin) 100 mg PO DAILY [facility] Last Admin: 04/23/18 10:42 Dose: 100 mg Lactobacillus Acidophilus (Bacid Acidophilus) 1 cap PO BID [facility] Last Admin: 04/23/18 17:21 Dose: 1 cap Mesalamine (Delzicol Dr) 1,600 mg PO TID [facility] Last Admin: 04/23/18 17:21 Dose: 1,600 mg Metronidazole (Flagyl) 500 mg PO Q8 [facility] PRN Reason: Protocol Last Admin: 04/24/18 05:30 Dose: 500 mg Nortriptyline HCl (Pamelor) 25 mg PO BID [facility] Last Admin: 04/23/18 17:21 Dose: 25 mg Pantoprazole Sodium (Protonix Ec Tab) 40 mg PO DAILY [facility] Last Admin: 04/23/18 10:42 Dose: 40 mg Saccharomyces Boulardii (Florastor) 250 mg PO BID [facility] Last Admin: 04/23/18 17:21 Dose: 250 mg Vancomycin HCl (Vancocin (Oral Or Rectal Use)) 250 mg PO Q6H [facility] PRN Reason: Protocol Last Admin: 04/24/18 05:30 Dose: 250 mg - Labs Labs: 04/24/18 08:27 04/24/18 08:27 Assessment and Plan (1) C. difficile diarrhea Status: Acute (2) Diarrhea Status: Acute (3) Ulcerative colitis, chronic Status: Chronic
[2018-04-24] MEDS: Saccharomyces Boulardi 250 mg Cap PO SCH ×2 (10:32→17:28)
[2018-04-24] MEDS: Calcium-Vit D 500 mg-200 Units Tab UD PO SCH (10:32)
[2018-04-24] MEDS: Pantoprazole 40 mg EC Tab PO SCH (10:33)
[2018-04-24] MEDS: Enoxaparin 40 mg Syringe SC SCH (10:34)
[2018-04-24] MEDS: Bismuth Subsalicylate 262 mg Chew Tab PO SCH ×4 (10:35→21:17)
[2018-04-24] MEDS: Lactobacillus Acidophilus 500 MU Cap PO SCH ×2 (10:38→17:28)
[2018-04-24] MEDS: Potassium Chloride 20 mEq ER Tab PO SCH (14:55)
--- NOTE | 2018-04-24 16:40 | CP.PCM.PN ---
Subjective - Date & Time of Evaluation Date of Evaluation: 04/24/18 Time of Evaluation: 16:35 - Subjective Subjective: Patient continues to complain of frequent, watery diarrhea, five times today. Her appetite is poor. She denies having vomiting. Objective - Vital Signs/Intake and Output Vital Signs (last 24 hours): Temp Pulse Resp BP Pulse Ox 98.5 F 82 20 136/80 99 04/24/18 15:53 04/24/18 15:53 04/24/18 15:53 04/24/18 15:53 04/24/18 15:53 Intake and Output: 04/24/18 04/24/18 06:59 18:59 Intake Total 1000 Balance 1000 - Medications Medications: Current Medications Acetaminophen (Tylenol 325mg Tab) 650 mg PO Q6 PRN PRN Reason: Fever >100.4 F Last Admin: 04/21/18 15:42 Dose: 650 mg Bismuth Subsalicylate (Pepto Bismol) 262 mg PO QID [facility] Last Admin: 04/24/18 14:41 Dose: 262 mg Calcium/Vitamin D (Oyster Shell Calcium/Vitamin D 500 Mg-200 Iu) 1 tab PO DAILY [facility] Last Admin: 04/24/18 10:32 Dose: 1 tab Cholestyramine Resin (Questran) 4 gm PO Q6H [facility] Last Admin: 04/24/18 14:07 Dose: 4 gm Enoxaparin Sodium (Lovenox) 40 mg SC DAILY [facility] Last Admin: 04/24/18 10:34 Dose: 40 mg Gabapentin (Neurontin) 100 mg PO DAILY [facility] Last Admin: 04/24/18 10:33 Dose: 100 mg Lactobacillus Acidophilus (Bacid Acidophilus) 1 cap PO BID [facility] Last Admin: 04/24/18 10:38 Dose: 1 cap Mesalamine (Delzicol Dr) 1,600 mg PO TID [facility] Last Admin: 04/24/18 14:08 Dose: 1,600 mg Metronidazole (Flagyl) 500 mg PO Q8 [facility] PRN Reason: Protocol Last Admin: 04/24/18 14:06 Dose: 500 mg Nortriptyline HCl (Pamelor) 25 mg PO BID [facility] Last Admin: 04/24/18 10:35 Dose: 25 mg Pantoprazole Sodium (Protonix Ec Tab) 40 mg PO DAILY [facility] Last Admin: 04/24/18 10:33 Dose: 40 mg Potassium Chloride (K-Dur 20 Meq Er Tab) 20 meq PO DAILY [facility] Stop: 04/26/18 10:01 Last Admin: 04/24/18 14:55 Dose: 20 meq Saccharomyces Boulardii (Florastor) 250 mg PO BID [facility] Last Admin: 04/24/18 10:32 Dose: 250 mg Vancomycin HCl (Vancocin (Oral Or Rectal Use)) 250 mg PO Q6H [facility] PRN Reason: Protocol Last Admin: 04/24/18 10:33 Dose: 250 mg - Labs Labs: 04/24/18 08:27 04/24/18 08:27 - Constitutional Appears: No Acute Distress - Head Exam Head Exam: ATRAUMATIC, NORMOCEPHALIC - Eye Exam Eye Exam: EOMI, PERRL - Neck Exam Neck Exam: absent: Lymphadenopathy, Thyromegaly - Respiratory Exam Respiratory Exam: NORMAL BREATHING PATTERN. absent: Rales, Rhonchi, Wheezes - Cardiovascular Exam Cardiovascular Exam: REGULAR RHYTHM, +S1, +S2. absent: Gallop, Rubs, Murmur - GI/Abdominal Exam GI & Abdominal Exam: Soft, Normal Bowel Sounds. absent: Tenderness, Mass, Organomegaly - Rectal Exam Rectal Exam: Deferred - Extremities Exam Extremities Exam: absent: Calf Tenderness, Pedal Edema Assessment and Plan (1) C. difficile diarrhea Assessment & Plan: Diarrhea continues. Will arrange for colonoscopy for the AM. Status: Acute
--- NOTE | 2018-04-24 17:17 | CP.PCM.PN ---
Subjective - Date & Time of Evaluation Date of Evaluation: 04/24/18 Time of Evaluation: 08:00 - Subjective Subjective: + LBM severe rx in progress Objective - Vital Signs/Intake and Output Vital Signs (last 24 hours): Temp Pulse Resp BP Pulse Ox 98.5 F 82 20 136/80 99 04/24/18 15:53 04/24/18 15:53 04/24/18 15:53 04/24/18 15:53 04/24/18 15:53 Intake and Output: 04/24/18 04/24/18 06:59 18:59 Intake Total 1000 Balance 1000 - Medications Medications: Current Medications Acetaminophen (Tylenol 325mg Tab) 650 mg PO Q6 PRN PRN Reason: Fever >100.4 F Last Admin: 04/21/18 15:42 Dose: 650 mg Bismuth Subsalicylate (Pepto Bismol) 262 mg PO QID [facility] Last Admin: 04/24/18 14:41 Dose: 262 mg Calcium/Vitamin D (Oyster Shell Calcium/Vitamin D 500 Mg-200 Iu) 1 tab PO DAILY [facility] Last Admin: 04/24/18 10:32 Dose: 1 tab Cholestyramine Resin (Questran) 4 gm PO Q6H [facility] Last Admin: 04/24/18 14:07 Dose: 4 gm Enoxaparin Sodium (Lovenox) 40 mg SC DAILY [facility] Last Admin: 04/24/18 10:34 Dose: 40 mg Gabapentin (Neurontin) 100 mg PO DAILY [facility] Last Admin: 04/24/18 10:33 Dose: 100 mg Lactobacillus Acidophilus (Bacid Acidophilus) 1 cap PO BID [facility] Last Admin: 04/24/18 10:38 Dose: 1 cap Mesalamine (Delzicol Dr) 1,600 mg PO TID [facility] Last Admin: 04/24/18 14:08 Dose: 1,600 mg Metronidazole (Flagyl) 500 mg PO Q8 [facility] PRN Reason: Protocol Last Admin: 04/24/18 14:06 Dose: 500 mg Nortriptyline HCl (Pamelor) 25 mg PO BID [facility] Last Admin: 04/24/18 10:35 Dose: 25 mg Pantoprazole Sodium (Protonix Ec Tab) 40 mg PO DAILY [facility] Last Admin: 04/24/18 10:33 Dose: 40 mg Potassium Chloride (K-Dur 20 Meq Er Tab) 20 meq PO DAILY [facility] Stop: 04/26/18 10:01 Last Admin: 04/24/18 14:55 Dose: 20 meq Saccharomyces Boulardii (Florastor) 250 mg PO BID [facility] Last Admin: 04/24/18 10:32 Dose: 250 mg Vancomycin HCl (Vancocin (Oral Or Rectal Use)) 250 mg PO Q6H [facility] PRN Reason: Protocol Last Admin: 04/24/18 10:33 Dose: 250 mg - Labs Labs: 04/24/18 08:27 04/24/18 08:27 - Constitutional Appears: Non-toxic, Chronically Ill - Head Exam Head Exam: NORMOCEPHALIC - Eye Exam Eye Exam: PERRL - ENT Exam ENT Exam: Mucous Membranes Dry - Neck Exam Neck Exam: absent: Lymphadenopathy - Respiratory Exam Respiratory Exam: Decreased Breath Sounds - Cardiovascular Exam Cardiovascular Exam: REGULAR RHYTHM - GI/Abdominal Exam GI & Abdominal Exam: Distended Assessment and Plan (1) Bloody diarrhea Status: Acute (2) Colitis Status: Acute - Assessment and Plan (Free Text) Assessment: for colonoscopy in am
[2018-04-24] MEDS: metroNIDAZOLE IV 500 mg/100 ml 500 MG/100 ML BAG IVPB SCH (21:17)
--- NOTE | 2018-04-24 22:48 | CARD ---
APPROVED REPORT EKG Measurement Heart [id number] <Conclusion> Sinus tachycardia Nonspecific T wave abnormality Abnormal ECG
[2018-04-25] MEDS: Cholestyramine 4 gm/Pkt UD PO SCH ×4 (03:15→21:31)
[2018-04-25] MEDS: Vancomycin 125 MG/5 ML SOLN (ORAL/RECTAL) PO SCH ×4 (05:21→22:15)
[2018-04-25] MEDS: metroNIDAZOLE IV 500 mg/100 ml 500 MG/100 ML BAG IVPB SCH ×3 (06:18→22:15)
[2018-04-25 08:46] LABS: BASO % 0.6 % (0.0-2.0); EOS # 0.6 K/uL (0.0-0.7); EOS % 10.9 % (0.0-4.0); HEMOGLOBIN 11.6 g/dL (11.0-16.0); LYMPH # 1.6 K/uL (1.0-4.3); LYMPH % 28.8 % (20.0-40.0); MEAN CELL VOLUME 93.2 fL (81.0-99.0); MEAN CORPUSCULAR HEMOGLOBIN 32.4 pg (27.0-31.0); MEAN CORPUSCULAR HGB CONC 34.8 g/dL (33.0-37.0); MEAN PLATELET VOLUME 8.2 fL (7.2-11.7); MONO # 0.8 K/uL (0.0-0.8); MONO % 14.7 % (0.0-10.0); NEUT # 2.6 K/uL (1.8-7.0); NRBC % 0.1 % (0.0-2.0); RBC 3.57 Mil/uL (3.80-5.20); RED CELL DISTRIBUTION WIDTH 14.8 % (11.5-14.5); WHITE BLOOD COUNT 5.7 K/uL (4.8-10.8)
[2018-04-25 09:22] LABS: ALB/GLOB RATIO 0.9 (1.0-2.1); ALBUMIN 2.4 g/dL (3.5-5.0); ALT/SGPT 30 U/L (9-52); AST/SGOT 25 U/L (14-36); BLOOD UREA NITROGEN 6 mg/dL (7-17); GFR AFRICAN-AMERICAN > 60; GFR NON-AFRICAN AMERICAN > 60
[2018-04-25] MEDS: Saccharomyces Boulardi 250 mg Cap PO SCH ×2 (09:55→17:49)
[2018-04-25] MEDS: Calcium-Vit D 500 mg-200 Units Tab UD PO SCH (09:55)
[2018-04-25] MEDS: Potassium Chloride 20 mEq ER Tab PO SCH (09:56)
[2018-04-25] MEDS: Lactobacillus Acidophilus 500 MU Cap PO SCH ×2 (09:56→17:49)
[2018-04-25] MEDS: Pantoprazole 40 mg EC Tab PO SCH (09:56)
[2018-04-25] MEDS: Enoxaparin 40 mg Syringe SC SCH (09:56)
[2018-04-25] MEDS: Bismuth Subsalicylate 262 mg Chew Tab PO SCH ×4 (10:23→22:15)
[2018-04-25] MEDS ORDERED: Propofol 10 mg/ml Inj (20 ML) ONE ×2 (14:11→14:47)
[2018-04-25] MEDS ORDERED: Potassium Chloride 10 mEq ER Tab PO ONE (21:40)
--- NOTE | 2018-04-25 22:51 | CP.PCM.PN ---
Subjective - Date & Time of Evaluation Date of Evaluation: 04/25/18 Time of Evaluation: 19:00 - Subjective Subjective: Pt seen and examined at bedside, consisitent loose wattery stools, no fever, generalized weakness Objective - Vital Signs/Intake and Output Vital Signs (last 24 hours): Temp Pulse Resp BP Pulse Ox 97.5 F L 76 20 122/71 97 04/25/18 15:52 04/25/18 15:52 04/25/18 15:52 04/25/18 15:52 04/25/18 15:52 Intake and Output: 04/25/18 04/26/18 18:59 06:59 Intake Total 100 Balance 100 - Medications Medications: Current Medications Acetaminophen (Tylenol 325mg Tab) 650 mg PO Q6 PRN PRN Reason: Fever >100.4 F Last Admin: 04/21/18 15:42 Dose: 650 mg Bismuth Subsalicylate (Pepto Bismol) 262 mg PO QID [facility] Last Admin: 04/25/18 22:15 Dose: 262 mg Calcium/Vitamin D (Oyster Shell Calcium/Vitamin D 500 Mg-200 Iu) 1 tab PO DAILY [facility] Last Admin: 04/25/18 09:55 Dose: 1 tab Cholestyramine Resin (Questran) 4 gm PO Q6H [facility] Last Admin: 04/25/18 21:31 Dose: Not Given Enoxaparin Sodium (Lovenox) 40 mg SC DAILY [facility] Last Admin: 04/25/18 09:56 Dose: 40 mg Gabapentin (Neurontin) 100 mg PO DAILY [facility] Last Admin: 04/25/18 09:56 Dose: 100 mg Metronidazole (Flagyl) 500 mg in 100 mls @ 100 mls/hr IVPB Q8 [facility] PRN Reason: Protocol Last Admin: 04/25/18 22:15 Dose: 100 mls/hr Lactobacillus Acidophilus (Bacid Acidophilus) 1 cap PO BID [facility] Last Admin: 04/25/18 17:49 Dose: 1 cap Mesalamine (Delzicol Dr) 1,600 mg PO TID [facility] Last Admin: 04/25/18 17:50 Dose: 1,600 mg Nortriptyline HCl (Pamelor) 25 mg PO BID [facility] Last Admin: 04/25/18 20:41 Dose: 25 mg Pantoprazole Sodium (Protonix Ec Tab) 40 mg PO DAILY [facility] Last Admin: 04/25/18 09:56 Dose: 40 mg Potassium Chloride (K-Dur 20 Meq Er Tab) 20 meq PO DAILY [facility] Stop: 04/26/18 10:01 Last Admin: 04/25/18 09:56 Dose: 20 meq Saccharomyces Boulardii (Florastor) 250 mg PO BID [facility] Last Admin: 04/25/18 17:49 Dose: 250 mg Vancomycin HCl (Vancocin (Oral Or Rectal Use)) 250 mg PO Q6H [facility] PRN Reason: Protocol Last Admin: 04/25/18 22:15 Dose: 250 mg Zolpidem Tartrate (Ambien) 5 mg PO HS PRN PRN Reason: Insomnia Last Admin: 04/25/18 22:15 Dose: 5 mg - Labs Labs: 04/25/18 08:15 04/25/18 13:16 - Constitutional Appears: No Acute Distress, Chronically Ill - Head Exam Head Exam: ATRAUMATIC, NORMAL INSPECTION, NORMOCEPHALIC - Eye Exam Eye Exam: EOMI, Normal appearance, PERRL Pupil Exam: NORMAL ACCOMODATION, PERRL - Respiratory Exam Respiratory Exam: Clear to Ausculation Bilateral, NORMAL BREATHING PATTERN - Cardiovascular Exam Cardiovascular Exam: REGULAR RHYTHM, +S1, +S2. absent: Murmur - GI/Abdominal Exam GI & Abdominal Exam: Hyperactive Bowel Sounds Assessment and Plan (1) C. difficile diarrhea Assessment & Plan: Colonoscopy showed evidence of pseudomembranous colitis. However, multiple ulcers were found in the rectosigmoid colon, suspicious for CMV colitis. Will continue oral vancomycin and check the cytology and biopsies from the colonoscopy. Repeat CT scan. Status: Acute (2) Diarrhea Status: Acute (3) Ulcerative colitis, chronic Status: Chronic
[2018-04-26] MEDS: Cholestyramine 4 gm/Pkt UD PO SCH ×3 (03:43→14:07)
[2018-04-26] MEDS: metroNIDAZOLE IV 500 mg/100 ml 500 MG/100 ML BAG IVPB SCH ×3 (05:32→21:50)
[2018-04-26] MEDS: Vancomycin 125 MG/5 ML SOLN (ORAL/RECTAL) PO SCH ×4 (05:33→23:51)
--- NOTE | 2018-04-26 07:40 | CP.PCM.PN ---
Subjective - Date & Time of Evaluation Date of Evaluation: 04/26/18 Time of Evaluation: 07:37 - Subjective Subjective: Patient had three loose bowel movements overnight. She denies having nausea and vomiting. Objective - Vital Signs/Intake and Output Vital Signs (last 24 hours): Temp Pulse Resp BP Pulse Ox 98.3 F 88 20 122/72 96 04/25/18 23:25 04/25/18 23:25 04/25/18 23:25 04/25/18 23:25 04/25/18 23:25 - Medications Medications: Current Medications Acetaminophen (Tylenol 325mg Tab) 650 mg PO Q6 PRN PRN Reason: Fever >100.4 F Last Admin: 04/21/18 15:42 Dose: 650 mg Bismuth Subsalicylate (Pepto Bismol) 262 mg PO QID [facility] Last Admin: 04/25/18 22:15 Dose: 262 mg Calcium/Vitamin D (Oyster Shell Calcium/Vitamin D 500 Mg-200 Iu) 1 tab PO DAILY [facility] Last Admin: 04/25/18 09:55 Dose: 1 tab Cholestyramine Resin (Questran) 4 gm PO Q6H [facility] Last Admin: 04/26/18 03:43 Dose: Not Given Enoxaparin Sodium (Lovenox) 40 mg SC DAILY [facility] Last Admin: 04/25/18 09:56 Dose: 40 mg Gabapentin (Neurontin) 100 mg PO DAILY [facility] Last Admin: 04/25/18 09:56 Dose: 100 mg Metronidazole (Flagyl) 500 mg in 100 mls @ 100 mls/hr IVPB Q8 [facility] PRN Reason: Protocol Last Admin: 04/26/18 05:32 Dose: 100 mls/hr Lactobacillus Acidophilus (Bacid Acidophilus) 1 cap PO BID [facility] Last Admin: 04/25/18 17:49 Dose: 1 cap Mesalamine (Delzicol Dr) 1,600 mg PO TID [facility] Last Admin: 04/25/18 17:50 Dose: 1,600 mg Nortriptyline HCl (Pamelor) 25 mg PO BID [facility] Last Admin: 04/25/18 20:41 Dose: 25 mg Pantoprazole Sodium (Protonix Ec Tab) 40 mg PO DAILY [facility] Last Admin: 04/25/18 09:56 Dose: 40 mg Potassium Chloride (K-Dur 20 Meq Er Tab) 20 meq PO DAILY [facility] Stop: 04/26/18 10:01 Last Admin: 04/25/18 09:56 Dose: 20 meq Saccharomyces Boulardii (Florastor) 250 mg PO BID [facility] Last Admin: 04/25/18 17:49 Dose: 250 mg Vancomycin HCl (Vancocin (Oral Or Rectal Use)) 250 mg PO Q6H [facility] PRN Reason: Protocol Last Admin: 04/26/18 05:33 Dose: 250 mg Zolpidem Tartrate (Ambien) 5 mg PO HS PRN PRN Reason: Insomnia Last Admin: 04/25/18 22:15 Dose: 5 mg - Labs Labs: 04/25/18 08:15 04/25/18 13:16 - Constitutional Appears: No Acute Distress - Head Exam Head Exam: ATRAUMATIC, NORMOCEPHALIC - Eye Exam Eye Exam: EOMI, PERRL - Neck Exam Neck Exam: absent: Lymphadenopathy, Thyromegaly - Respiratory Exam Respiratory Exam: NORMAL BREATHING PATTERN. absent: Rales, Rhonchi, Wheezes - Cardiovascular Exam Cardiovascular Exam: REGULAR RHYTHM, +S1, +S2. absent: Gallop, Rubs, Murmur - GI/Abdominal Exam GI & Abdominal Exam: Soft, Normal Bowel Sounds. absent: Tenderness, Mass, Organomegaly - Rectal Exam Rectal Exam: Deferred - Extremities Exam Extremities Exam: absent: Calf Tenderness, Pedal Edema Assessment and Plan (1) C. difficile diarrhea Assessment & Plan: Colonoscopy showed evidence of pseudomembranous colitis. However, multiple ulcers were found in the rectosigmoid colon, suspicious for CMV colitis. Will continue oral vancomycin and check the cytology and biopsies from the colonoscopy. Repeat CT scan. Status: Acute
[2018-04-26] MEDS ORDERED: Iohexol 240 (50 ml) PO ONE (08:15)
[2018-04-26 08:31] LABS: BASO # 0.1 K/uL (0.0-0.2); EOS # 0.9 K/uL (0.0-0.7); EOS % 12.3 % (0.0-4.0); HEMOGLOBIN 11.7 g/dL (11.0-16.0); LYMPH # 2.2 K/uL (1.0-4.3); LYMPH % 30.4 % (20.0-40.0); MEAN CELL VOLUME 93.3 fL (81.0-99.0); MEAN CORPUSCULAR HEMOGLOBIN 32.2 pg (27.0-31.0); MEAN CORPUSCULAR HGB CONC 34.5 g/dL (33.0-37.0); MEAN PLATELET VOLUME 7.7 fL (7.2-11.7); MONO # 1.1 K/uL (0.0-0.8); MONO % 15.6 % (0.0-10.0); NEUT # 2.9 K/uL (1.8-7.0); NEUT % 40.7 % (50.0-75.0); NRBC % 0.1 % (0.0-2.0); RBC 3.63 Mil/uL (3.80-5.20); RED CELL DISTRIBUTION WIDTH 14.5 % (11.5-14.5); WHITE BLOOD COUNT 7.2 K/uL (4.8-10.8)
[2018-04-26 08:45] LABS: ALBUMIN 2.6 g/dL (3.5-5.0); ALT/SGPT 29 U/L (9-52); AST/SGOT 22 U/L (14-36); BLOOD UREA NITROGEN 6 mg/dL (7-17); CALCIUM 7.9 mg/dl (8.6-10.4); GFR AFRICAN-AMERICAN > 60; GFR NON-AFRICAN AMERICAN > 60
[2018-04-26] MEDS ORDERED: Potassium Chloride 20 mEq ER Tab PO ONE (10:00)
[2018-04-26 11:08] LABS: BASO # 0.1 K/uL (0.0-0.2); BASO % 0.8 % (0.0-2.0); EOS # 0.9 K/uL (0.0-0.7); HEMOGLOBIN 12.4 g/dL (11.0-16.0); LYMPH # 2.1 K/uL (1.0-4.3); LYMPH % 28.9 % (20.0-40.0); MEAN CELL VOLUME 94.2 fL (81.0-99.0); MEAN CORPUSCULAR HEMOGLOBIN 32.1 pg (27.0-31.0); MEAN PLATELET VOLUME 8.3 fL (7.2-11.7); MONO # 0.9 K/uL (0.0-0.8); MONO % 12.7 % (0.0-10.0); NEUT # 3.3 K/uL (1.8-7.0); NEUT % 45.6 % (50.0-75.0); NRBC % 0.1 % (0.0-2.0); RBC 3.86 Mil/uL (3.80-5.20); RED CELL DISTRIBUTION WIDTH 14.8 % (11.5-14.5); WHITE BLOOD COUNT 7.3 K/uL (4.8-10.8)
[2018-04-26] MEDS: Saccharomyces Boulardi 250 mg Cap PO SCH ×2 (11:12→17:45)
[2018-04-26] MEDS: Lactobacillus Acidophilus 500 MU Cap PO SCH ×2 (11:12→17:45)
[2018-04-26] MEDS: Calcium-Vit D 500 mg-200 Units Tab UD PO SCH (11:13)
[2018-04-26] MEDS: Bismuth Subsalicylate 262 mg Chew Tab PO SCH ×4 (11:13→21:50)
[2018-04-26] MEDS: Pantoprazole 40 mg EC Tab PO SCH (11:13)
[2018-04-26] MEDS: Potassium Chloride 20 mEq ER Tab PO SCH (11:13)
[2018-04-26] MEDS: Enoxaparin 40 mg Syringe SC SCH (11:14)
[2018-04-26 11:18] LABS: ALBUMIN 2.8 g/dL (3.5-5.0); ALT/SGPT 34 U/L (9-52); AST/SGOT 25 U/L (14-36); BLOOD UREA NITROGEN 7 mg/dL (7-17); CALCIUM 8.1 mg/dl (8.6-10.4); GFR AFRICAN-AMERICAN > 60; GFR NON-AFRICAN AMERICAN > 60
[2018-04-26] MEDS ORDERED: Iodixanol 320 MG/ML 100 ML BOTTLE IV ONE (11:49)
--- NOTE | 2018-04-26 12:25 | RAD ---
PROCEDURE: Radiographs of the chest and abdomen (obstructive series) HISTORY: Rule out pneumoperitoneum COMPARISON: No prior. TECHNIQUE: AP radiograph of the chest, with upright and supine radiographs of the abdomen. FINDINGS: FINDINGS: CHEST: Lungs: Clear. Cardiovascular: Normal size heart. No pulmonary vascular congestion. Pleura: Small left pleural effusion. No pneumothorax. Other findings: None. ABDOMEN AND PELVIS: Bowel: See below Free air: None. Bones: Unremarkable. Other findings: None. BOWEL: Dilated loop of featureless bowel in the upper abdomen oriented transversely. Uncertain significance. Cannot rule out ischemic or inflamed bowel. Consider further evaluation with computed tomography. No evidence generalized bowel obstruction. IMPRESSION: Small left pleural effusion. No evidence of pneumoperitoneum. Featureless dilated loop of bowel may indicate ischemic or inflamed bowel. Consider further evaluation with computed tomography.
--- NOTE | 2018-04-26 14:04 | CT ---
PROCEDURE: CT Abdomen and Pelvis with contrast HISTORY: Refractory colitis, R/O megacolon COMPARISON: None. TECHNIQUE: Contrast dose: 100 mL Visipaque 320 Radiation dose: Total exam DLP = 279.20 mGy-cm. This CT exam was performed using one or more of the following dose reduction techniques: Automated exposure control, adjustment of the mA and/or kV according to patient size, and/or use of iterative reconstruction technique. FINDINGS: LOWER THORAX: Trace left pleural effusion. Minimal bilateral lower lobe subsegmental atelectasis. LIVER: Normal size, contour and attenuation. No mass. No biliary dilatation. GALLBLADDER AND BILE DUCTS: Unremarkable. PANCREAS: Unremarkable. No gross lesion or ductal dilatation. SPLEEN: Unremarkable. ADRENALS: Unremarkable. No mass. KIDNEYS AND URETERS: Mild right hydronephrosis. No hydroureter. 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 No left hydronephrosis. Extrarenal renal pelvis bilaterally. No renal mass or calculus. No perinephric fluid. VASCULATURE: Unremarkable. No aortic aneurysm. BOWEL: Diffuse extensive mural thickening of the entire colon including the rectum. No bowel obstruction. Mild mural thickening of the 1st and 2nd duodenum common nonspecific. APPENDIX: There is distention of the appendix to a diameter approximately 7 mm. This is likely secondary to colitis involving the adjacent cecum. However, this meets the formal criteria for appendicitis. There is mild periappendiceal inflammatory change. No appendicolith is identified. PERITONEUM: Mild ascites, about the liver and spleen. No large generalized ascites. Trace fluid in the pelvis. Incidental mild presacral soft tissue thickening common nonspecific. LYMPH NODES: Nonspecific mild retroperitoneal lymphadenopathy. Likely reactive. BLADDER: Unremarkable. REPRODUCTIVE: Status post hysterectomy BONES: No acute fracture. OTHER FINDINGS: None. IMPRESSION: Diffuse extensive colitis. Distended appendix up to 7 mm diameter with mild periappendiceal inflammatory change consistent with appendicitis. This is most likely secondary to the associated colitis. Minimal ascites. Nonspecific mild retroperitoneal lymphadenopathy. No evidence of pneumoperitoneum. Additional minor findings as above.
--- NOTE | 2018-04-26 16:08 | CP.PCM.PN ---
Subjective - Date & Time of Evaluation Date of Evaluation: 04/26/18 Time of Evaluation: 19:00 - Subjective Subjective: Pt seen and examined, still have loose wattery stools, Colonoscopy showed evidence of pseudomembranous colitis. However, multiple ulcers were found in the rectosigmoid colon, suspicious for CMV colitis. Will continue oral vancomycin and check the cytology and biopsies from the colonoscopy. Repeat CT scan. Objective - Vital Signs/Intake and Output Vital Signs (last 24 hours): Temp Pulse Resp BP Pulse Ox 97.6 F 100 H 20 121/77 95 04/26/18 07:45 04/26/18 07:45 04/26/18 07:45 04/26/18 07:45 04/26/18 07:45 - Medications Medications: Current Medications Acetaminophen (Tylenol 325mg Tab) 650 mg PO Q6 PRN PRN Reason: Fever >100.4 F Last Admin: 04/21/18 15:42 Dose: 650 mg Bismuth Subsalicylate (Pepto Bismol) 262 mg PO QID [facility] Last Admin: 04/26/18 14:07 Dose: 262 mg Calcium/Vitamin D (Oyster Shell Calcium/Vitamin D 500 Mg-200 Iu) 1 tab PO DAILY [facility] Last Admin: 04/26/18 11:13 Dose: 1 tab Enoxaparin Sodium (Lovenox) 40 mg SC DAILY [facility] Last Admin: 04/26/18 11:14 Dose: 40 mg Gabapentin (Neurontin) 100 mg PO DAILY [facility] Last Admin: 04/26/18 11:12 Dose: 100 mg Metronidazole (Flagyl) 500 mg in 100 mls @ 100 mls/hr IVPB Q8 [facility] PRN Reason: Protocol Last Admin: 04/26/18 14:07 Dose: 100 mls/hr Lactobacillus Acidophilus (Bacid Acidophilus) 1 cap PO BID [facility] Last Admin: 04/26/18 11:12 Dose: 1 cap Mesalamine (Delzicol Dr) 1,600 mg PO TID [facility] Last Admin: 04/26/18 14:07 Dose: 1,600 mg Nortriptyline HCl (Pamelor) 25 mg PO BID [facility] Last Admin: 04/26/18 11:11 Dose: 25 mg Pantoprazole Sodium (Protonix Ec Tab) 40 mg PO DAILY [facility] Last Admin: 04/26/18 11:13 Dose: 40 mg Saccharomyces Boulardii (Florastor) 250 mg PO BID [facility] Last Admin: 04/26/18 11:12 Dose: 250 mg Vancomycin HCl (Vancocin (Oral Or Rectal Use)) 250 mg PO Q6H [facility] PRN Reason: Protocol Last Admin: 04/26/18 11:12 Dose: 250 mg Zolpidem Tartrate (Ambien) 5 mg PO HS PRN PRN Reason: Insomnia Last Admin: 04/25/18 22:15 Dose: 5 mg - Labs Labs: 04/26/18 11:01 04/26/18 11:01 - Constitutional Appears: No Acute Distress - Head Exam Head Exam: ATRAUMATIC, NORMAL INSPECTION, NORMOCEPHALIC - Eye Exam Eye Exam: EOMI, Normal appearance, PERRL Pupil Exam: NORMAL ACCOMODATION, PERRL - Respiratory Exam Respiratory Exam: Decreased Breath Sounds, Rales, Rhonchi - Cardiovascular Exam Cardiovascular Exam: REGULAR RHYTHM, +S1, +S2. absent: Murmur - GI/Abdominal Exam GI & Abdominal Exam: Soft, Hyperactive Bowel Sounds. absent: Tenderness Assessment and Plan (1) C. difficile diarrhea Status: Acute (2) Diarrhea Status: Acute (3) Ulcerative colitis, chronic Status: Chronic
--- NOTE | 2018-04-26 16:45 | CP.PCM.CON ---
History of Present Illness - History of Present Illness History of Present Illness: Surgery 77 F w PMH of ulcerative colitis since she was 20 came with recurrent diarrhea. Pt reports that US has been controlled, however since November this year she started to have intermittent watery diarrhea. Bloody at times and pt had multiple admissions for colitis. Colonoscopy was done and shows c-diff membranous colitis. CT scan shows severe diffuse colitis also 6mm dilated appendix. Pt denies nausea,vomiting, abd pain, hematemesis, dysuria, hematurai, melena. Reports unintentional weight loss. Pt was taking ABX for c-diff. Surgery is consulted to evaluate for appendicitis PMH see above PSH : denies Review of Systems - Review of Systems Review of Systems: See HPI Past Patient History - Infectious Disease Hx of Infectious Diseases: None - Tetanus Immunizations Tetanus Immunization: Unknown - Past Medical History & Family History Past Medical History?: Yes - Past Social History Smoking Status: Never Smoked - CARDIAC Hx Cardiac Disorders: No - PULMONARY Hx Respiratory Disorders: No - NEUROLOGICAL Hx Neurological Disorder: No - HEENT Hx HEENT Problems: No - RENAL Hx Chronic Kidney Disease: No Hx Kidney Stones: No - ENDOCRINE/METABOLIC Hx Endocrine Disorders: No - HEMATOLOGICAL/ONCOLOGICAL Hx Human Immunodeficiency Virus (HIV): No - INTEGUMENTARY Hx Dermatological Problems: No - MUSCULOSKELETAL/RHEUMATOLOGICAL Hx Musculoskeletal Disorders: Yes Hx Falls: Yes - GASTROINTESTINAL Hx Crohn's Disease: Yes Hx Diverticulitis: No Hx Gall Bladder Disease: No Hx Gastritis: No Hx Pancreatitis: No - GENITOURINARY/GYNECOLOGICAL Hx Genitourinary Disorders: No (Kidney stones last 2013) - PSYCHIATRIC Hx Depression: No Hx Substance Use: No - SURGICAL HISTORY Hx Surgeries: No - ANESTHESIA Hx Anesthesia: No Hx Anesthesia Reactions: No Hx Malignant Hyperthermia: No Meds Allergies/Adverse Reactions: Allergies Allergy/AdvReac Type Severity Reaction Status Date / Time No Known Allergies Allergy Verified 02/22/17 13:09 - Medications Medications: Current Medications Acetaminophen (Tylenol 325mg Tab) 650 mg PO Q6 PRN PRN Reason: Fever >100.4 F Last Admin: 04/21/18 15:42 Dose: 650 mg Bismuth Subsalicylate (Pepto Bismol) 262 mg PO QID [facility] Last Admin: 04/26/18 14:07 Dose: 262 mg Calcium/Vitamin D (Oyster Shell Calcium/Vitamin D 500 Mg-200 Iu) 1 tab PO DAILY [facility] Last Admin: 04/26/18 11:13 Dose: 1 tab Enoxaparin Sodium (Lovenox) 40 mg SC DAILY [facility] Last Admin: 04/26/18 11:14 Dose: 40 mg Gabapentin (Neurontin) 100 mg PO DAILY [facility] Last Admin: 04/26/18 11:12 Dose: 100 mg Metronidazole (Flagyl) 500 mg in 100 mls @ 100 mls/hr IVPB Q8 [facility] PRN Reason: Protocol Last Admin: 04/26/18 14:07 Dose: 100 mls/hr Lactobacillus Acidophilus (Bacid Acidophilus) 1 cap PO BID [facility] Last Admin: 04/26/18 11:12 Dose: 1 cap Mesalamine (Delzicol Dr) 1,600 mg PO TID [facility] Last Admin: 04/26/18 14:07 Dose: 1,600 mg Nortriptyline HCl (Pamelor) 25 mg PO BID [facility] Last Admin: 04/26/18 11:11 Dose: 25 mg Pantoprazole Sodium (Protonix Ec Tab) 40 mg PO DAILY [facility] Last Admin: 04/26/18 11:13 Dose: 40 mg Saccharomyces Boulardii (Florastor) 250 mg PO BID [facility] Last Admin: 04/26/18 11:12 Dose: 250 mg Vancomycin HCl (Vancocin (Oral Or Rectal Use)) 250 mg PO Q6H [facility] PRN Reason: Protocol Last Admin: 04/26/18 11:12 Dose: 250 mg Zolpidem Tartrate (Ambien) 5 mg PO PRN PRN Reason: Insomnia Last Admin: 04/25/18 22:15 Dose: 5 mg Physical Exam - Constitutional Appears: No Acute Distress - Head Exam Head Exam: ATRAUMATIC, NORMAL INSPECTION, NORMOCEPHALIC - Eye Exam Eye Exam: EOMI, Normal appearance, PERRL Pupil Exam: NORMAL ACCOMODATION, PERRL - ENT Exam ENT Exam: Mucous Membranes Moist, Normal Exam - Neck Exam Neck exam: Positive for: Normal Inspection - Respiratory Exam Respiratory Exam: Clear to Auscultation Bilateral, NORMAL BREATHING PATTERN - Cardiovascular Exam Cardiovascular Exam: REGULAR RHYTHM - GI/Abdominal Exam GI & Abdominal Exam: Normal Bowel Sounds, Soft. absent: Distended, Firm, Guarding, Hernia, Tenderness - Extremities Exam Extremities exam: Positive for: normal inspection - Back Exam Back exam: NORMAL INSPECTION - Neurological Exam Neurological exam: Alert, CN II-XII Intact, Normal Gait, Oriented x3, Reflexes Normal - Psychiatric Exam Psychiatric exam: Normal Affect, Normal Mood - Skin Skin Exam: Dry, Intact, Normal Color, Warm Results - Vital Signs Recent Vital Signs: Last Vital Signs Temp 97.6 F 04/26/18 07:45 Pulse 100 H 04/26/18 07:45 Resp 20 04/26/18 07:45 BP 121/77 04/26/18 07:45 Pulse Ox 95 04/26/18 07:45 - Labs Result Diagrams: 04/26/18 11:01 04/26/18 11:01 Labs: Laboratory Results - last 24 hr 04/25/18 04/26/18 04/26/18 17:16 08:21 08:21 WBC 7.2 RBC 3.63 L Hgb 11.7 Hct 33.9 L MCV 93.3 MCH 32.2 H MCHC 34.5 RDW 14.5 Plt Count 344 MPV 7.7 Neut % (Auto) 40.7 L Lymph % (Auto) 30.4 [place] % (Auto) 15.6 H Eos % (Auto) 12.3 H Baso % (Auto) 1.0 Neut # (Auto) 2.9 Lymph # (Auto) 2.2 [place] # (Auto) 1.1 H Eos # (Auto) 0.9 H Baso # (Auto) 0.1 Sodium 134 Potassium 2.9 L Chloride 97 L Carbon Dioxide 28 Anion Gap 12 BUN 6 L Creatinine 0.5 L Est GFR ( Amer) > 60 Est GFR (Non-Af Amer) > 60 POC Glucose (mg/dL) 79 Random Glucose 86 Calcium 7.9 L Total Bilirubin 0.4 AST 22 ALT 29 Alkaline Phosphatase 191 H Total Protein 5.3 L Albumin 2.6 L Globulin 2.7 Albumin/Globulin Ratio 1.0 04/26/18 04/26/18 11:01 11:01 WBC 7.3 RBC 3.86 Hgb 12.4 Hct 36.4 MCV 94.2 MCH 32.1 H MCHC 34.0 RDW 14.8 H Plt Count 352 MPV 8.3 Neut % (Auto) 45.6 L Lymph % (Auto) 28.9 [place] % (Auto) 12.7 H Eos % (Auto) 12.0 H Baso % (Auto) 0.8 Neut # (Auto) 3.3 Lymph # (Auto) 2.1 [place] # (Auto) 0.9 H Eos # (Auto) 0.9 H Baso # (Auto) 0.1 Sodium 134 Potassium 3.0 L Chloride 96 L Carbon Dioxide 26 Anion Gap 15 BUN 7 Creatinine 0.5 L Est GFR ( Amer) > 60 Est GFR (Non-Af Amer) > 60 POC Glucose (mg/dL) Random Glucose 95 Calcium 8.1 L Total Bilirubin 0.4 AST 25 ALT 34 Alkaline Phosphatase 197 H Total Protein 5.7 L Albumin 2.8 L Globulin 2.9 Albumin/Globulin Ratio 1.0 Assessment & Plan - Assessment and Plan (Free Text) Assessment: Diffuse colitis with CT finding of appendictis APpendicitits unlikely : Denies abd pain. CT finding likely 2/2 colitis -No immedicate surgical intervention at this time -Diet as tolerated -ABX for C-diff -ID on board -GI on board -Labs -Serial abd exam Pt seen and DW Dr. Paiz
--- NOTE | 2018-04-26 19:16 | CP.PCM.PN ---
Subjective - Date & Time of Evaluation Date of Evaluation: 04/26/18 Time of Evaluation: 09:00 - Subjective Subjective: pt states no diarrhea today bx report noted T cells sent as well as CMV PCR may need to consider fecal transplant rx ? Objective - Vital Signs/Intake and Output Vital Signs (last 24 hours): Temp Pulse Resp BP Pulse Ox 98.1 F 84 18 120/59 L 97 04/26/18 15:40 04/26/18 15:40 04/26/18 15:40 04/26/18 15:40 04/26/18 15:40 Intake and Output: 04/26/18 04/27/18 18:59 06:59 Intake Total 690 Balance 690 - Medications Medications: Current Medications Acetaminophen (Tylenol 325mg Tab) 650 mg PO Q6 PRN PRN Reason: Fever >100.4 F Last Admin: 04/21/18 15:42 Dose: 650 mg Bismuth Subsalicylate (Pepto Bismol) 262 mg PO QID [facility] Last Admin: 04/26/18 17:45 Dose: 262 mg Calcium/Vitamin D (Oyster Shell Calcium/Vitamin D 500 Mg-200 Iu) 1 tab PO DAILY [facility] Last Admin: 04/26/18 11:13 Dose: 1 tab Enoxaparin Sodium (Lovenox) 40 mg SC DAILY [facility] Last Admin: 04/26/18 11:14 Dose: 40 mg Gabapentin (Neurontin) 100 mg PO DAILY [facility] Last Admin: 04/26/18 11:12 Dose: 100 mg Metronidazole (Flagyl) 500 mg in 100 mls @ 100 mls/hr IVPB Q8 [facility] PRN Reason: Protocol Last Admin: 04/26/18 14:07 Dose: 100 mls/hr Lactobacillus Acidophilus (Bacid Acidophilus) 1 cap PO BID [facility] Last Admin: 04/26/18 17:45 Dose: 1 cap Mesalamine (Delzicol Dr) 1,600 mg PO TID [facility] Last Admin: 04/26/18 17:45 Dose: 1,600 mg Nortriptyline HCl (Pamelor) 25 mg PO BID [facility] Last Admin: 04/26/18 17:45 Dose: 25 mg Pantoprazole Sodium (Protonix Ec Tab) 40 mg PO DAILY [facility] Last Admin: 04/26/18 11:13 Dose: 40 mg Saccharomyces Boulardii (Florastor) 250 mg PO BID [facility] Last Admin: 04/26/18 17:45 Dose: 250 mg Vancomycin HCl (Vancocin (Oral Or Rectal Use)) 250 mg PO Q6H [facility] PRN Reason: Protocol Last Admin: 04/26/18 17:45 Dose: 250 mg Zolpidem Tartrate (Ambien) 5 mg PO HS PRN PRN Reason: Insomnia Last Admin: 04/25/18 22:15 Dose: 5 mg - Labs Labs: 04/26/18 11:01 04/26/18 11:01 - Constitutional Appears: Non-toxic, Chronically Ill - Head Exam Head Exam: NORMOCEPHALIC - Eye Exam Eye Exam: Normal appearance - ENT Exam ENT Exam: Mucous Membranes Dry - Neck Exam Neck Exam: absent: Lymphadenopathy - Respiratory Exam Respiratory Exam: Decreased Breath Sounds - Cardiovascular Exam Cardiovascular Exam: REGULAR RHYTHM - GI/Abdominal Exam GI & Abdominal Exam: Distended - Rectal Exam Rectal Exam: Deferred - Exam Exam: NORMAL INSPECTION - Extremities Exam Extremities Exam: absent: Pedal Edema - Back Exam Back Exam: absent: CVA tenderness (L), CVA tenderness (R) Assessment and Plan (1) Bloody diarrhea Status: Acute (2) Colitis Status: Acute - Assessment and Plan (Free Text) Assessment: rx to cont improving may need fecal transplant rx
[2018-04-27] MEDS: Vancomycin 125 MG/5 ML SOLN (ORAL/RECTAL) PO SCH ×4 (00:20→17:28)
[2018-04-27] MEDS: metroNIDAZOLE IV 500 mg/100 ml 500 MG/100 ML BAG IVPB SCH ×3 (05:19→21:13)
[2018-04-27 07:38] LABS: BASO # 0.1 K/uL (0.0-0.2); BASO % 0.9 % (0.0-2.0); EOS # 1.1 K/uL (0.0-0.7); EOS % 14.8 % (0.0-4.0); HEMOGLOBIN 11.4 g/dL (11.0-16.0); LYMPH # 2.1 K/uL (1.0-4.3); LYMPH % 29.7 % (20.0-40.0); MEAN CELL VOLUME 93.5 fL (81.0-99.0); MEAN CORPUSCULAR HEMOGLOBIN 32.6 pg (27.0-31.0); MEAN CORPUSCULAR HGB CONC 34.9 g/dL (33.0-37.0); MEAN PLATELET VOLUME 7.8 fL (7.2-11.7); MONO % 13.4 % (0.0-10.0); NEUT % 41.2 % (50.0-75.0); NRBC % 0.1 % (0.0-2.0); RBC 3.5 Mil/uL (3.80-5.20); RED CELL DISTRIBUTION WIDTH 14.9 % (11.5-14.5); WHITE BLOOD COUNT 7.2 K/uL (4.8-10.8)
[2018-04-27 08:03] LABS: ALBUMIN 2.7 g/dL (3.5-5.0); ALT/SGPT 30 U/L (9-52); AST/SGOT 23 U/L (14-36); BLOOD UREA NITROGEN 4 mg/dL (7-17); GFR AFRICAN-AMERICAN > 60; GFR NON-AFRICAN AMERICAN > 60
--- NOTE | 2018-04-27 08:20 | CP.PCM.PN ---
Subjective - Date & Time of Evaluation Date of Evaluation: 04/27/18 Time of Evaluation: 08:00 - Subjective Subjective: F/U colitis.. Covering Dr Lemus REports FEELING BETTER. LESS diarrhea. Denies abd p, fever, chills, Cp ,SOB, SEGURA, cough SZ, hematuria, hemoptysis Objective - Vital Signs/Intake and Output Vital Signs (last 24 hours): Temp Pulse Resp BP Pulse Ox 98.0 F 99 H 20 126/68 97 04/27/18 07:00 04/27/18 07:00 04/27/18 07:00 04/27/18 07:00 04/27/18 07:00 Intake and Output: 04/27/18 04/27/18 06:59 18:59 Intake Total 500 Output Total 1 Balance 499 - Medications Medications: Current Medications Acetaminophen (Tylenol 325mg Tab) 650 mg PO Q6 PRN PRN Reason: Fever >100.4 F Last Admin: 04/21/18 15:42 Dose: 650 mg Bismuth Subsalicylate (Pepto Bismol) 262 mg PO QID [facility] Last Admin: 04/26/18 21:50 Dose: 262 mg Calcium/Vitamin D (Oyster Shell Calcium/Vitamin D 500 Mg-200 Iu) 1 tab PO DAILY [facility] Last Admin: 04/26/18 11:13 Dose: 1 tab Enoxaparin Sodium (Lovenox) 40 mg SC DAILY [facility] Last Admin: 04/26/18 11:14 Dose: 40 mg Gabapentin (Neurontin) 100 mg PO DAILY [facility] Last Admin: 04/26/18 11:12 Dose: 100 mg Metronidazole (Flagyl) 500 mg in 100 mls @ 100 mls/hr IVPB Q8 [facility] PRN Reason: Protocol Last Admin: 04/27/18 05:19 Dose: 100 mls/hr Potassium Chloride (Potassium Chloride 10 Meq/100 Ml) 10 meq in 100 mls @ 100 mls/hr IVPB ONCE ONE Stop: 04/27/18 09:11 Lactobacillus Acidophilus (Bacid Acidophilus) 1 cap PO BID [facility] Last Admin: 04/26/18 17:45 Dose: 1 cap Mesalamine (Delzicol Dr) 1,600 mg PO TID [facility] Last Admin: 04/26/18 17:45 Dose: 1,600 mg Nortriptyline HCl (Pamelor) 25 mg PO BID [facility] Last Admin: 04/26/18 17:45 Dose: 25 mg Pantoprazole Sodium (Protonix Ec Tab) 40 mg PO DAILY [facility] Last Admin: 04/26/18 11:13 Dose: 40 mg Potassium Chloride (K-Dur 20 Meq Er Tab) 40 meq PO ONCE ONE Stop: 04/27/18 10:01 Saccharomyces Boulardii (Florastor) 250 mg PO BID [facility] Last Admin: 04/26/18 17:45 Dose: 250 mg Vancomycin HCl (Vancocin (Oral Or Rectal Use)) 250 mg PO Q6H [facility] PRN Reason: Protocol Last Admin: 04/27/18 05:19 Dose: 250 mg Zolpidem Tartrate (Ambien) 5 mg PO HS PRN PRN Reason: Insomnia Last Admin: 04/25/18 22:15 Dose: 5 mg - Labs Labs: 04/27/18 07:30 04/27/18 07:30 - Constitutional Appears: Well - Respiratory Exam Respiratory Exam: Clear to Ausculation Bilateral - Cardiovascular Exam Cardiovascular Exam: RRR - GI/Abdominal Exam GI & Abdominal Exam: Soft, Normal Bowel Sounds. absent: Guarding, Tenderness, Mass, Rebound - Neurological Exam Neurological Exam: Alert, Oriented x3 - Skin Skin Exam: absent: Rash Assessment and Plan (1) C. difficile diarrhea Assessment & Plan: on vanco flagyl Status: Acute (2) Diarrhea Assessment & Plan: Last admission- microscopic colitis. Now + c diff. Colitis and ulcer in left colon at colonosocpy. Check final reports from colonosocpy. CT - noted. Continue flagyl, vanco, mesalamine, probiotics., pepto Status: Acute (3) Bloody diarrhea Status: Acute
--- NOTE | 2018-04-27 09:43 | CP.PCM.PN ---
Subjective - Date & Time of Evaluation Date of Evaluation: 04/27/18 Time of Evaluation: 09:41 - Subjective Subjective: Surgery Pt seen and examined. NO acute events. Less diarrhea. Denies heamatochezia, abd pain. Objective - Vital Signs/Intake and Output Vital Signs (last 24 hours): Temp Pulse Resp BP Pulse Ox 98.0 F 99 H 20 126/68 97 04/27/18 07:00 04/27/18 07:00 04/27/18 07:00 04/27/18 07:00 04/27/18 07:00 Intake and Output: 04/27/18 04/27/18 06:59 18:59 Intake Total 500 Output Total 1 Balance 499 - Medications Medications: Current Medications Acetaminophen (Tylenol 325mg Tab) 650 mg PO Q6 PRN PRN Reason: Fever >100.4 F Last Admin: 04/21/18 15:42 Dose: 650 mg Bismuth Subsalicylate (Pepto Bismol) 262 mg PO QID [facility] Last Admin: 04/26/18 21:50 Dose: 262 mg Calcium/Vitamin D (Oyster Shell Calcium/Vitamin D 500 Mg-200 Iu) 1 tab PO DAILY [facility] Last Admin: 04/26/18 11:13 Dose: 1 tab Enoxaparin Sodium (Lovenox) 40 mg SC DAILY [facility] Last Admin: 04/26/18 11:14 Dose: 40 mg Gabapentin (Neurontin) 100 mg PO DAILY [facility] Last Admin: 04/26/18 11:12 Dose: 100 mg Metronidazole (Flagyl) 500 mg in 100 mls @ 100 mls/hr IVPB Q8 [facility] PRN Reason: Protocol Last Admin: 04/27/18 05:19 Dose: 100 mls/hr Potassium Chloride (Potassium Chloride 10 Meq/100 Ml) 10 meq in 100 mls @ 100 mls/hr IVPB ONCE ONE Stop: 04/27/18 10:14 Lactobacillus Acidophilus (Bacid Acidophilus) 1 cap PO BID [facility] Last Admin: 04/26/18 17:45 Dose: 1 cap Mesalamine (Delzicol Dr) 1,600 mg PO TID [facility] Last Admin: 04/26/18 17:45 Dose: 1,600 mg Nortriptyline HCl (Pamelor) 25 mg PO BID [facility] Last Admin: 04/26/18 17:45 Dose: 25 mg Pantoprazole Sodium (Protonix Ec Tab) 40 mg PO DAILY [facility] Last Admin: 04/26/18 11:13 Dose: 40 mg Potassium Chloride (K-Dur 20 Meq Er Tab) 40 meq PO ONCE ONE Stop: 04/27/18 10:01 Saccharomyces Boulardii (Florastor) 250 mg PO BID [facility] Last Admin: 04/26/18 17:45 Dose: 250 mg Vancomycin HCl (Vancocin (Oral Or Rectal Use)) 250 mg PO Q6H [facility] PRN Reason: Protocol Last Admin: 04/27/18 05:19 Dose: 250 mg Zolpidem Tartrate (Ambien) 5 mg PO HS PRN PRN Reason: Insomnia Last Admin: 04/25/18 22:15 Dose: 5 mg - Labs Labs: 04/27/18 07:30 04/27/18 07:30 - Constitutional Appears: No Acute Distress - Head Exam Head Exam: ATRAUMATIC, NORMAL INSPECTION, NORMOCEPHALIC - Eye Exam Eye Exam: EOMI, Normal appearance, PERRL Pupil Exam: NORMAL ACCOMODATION, PERRL - ENT Exam ENT Exam: Mucous Membranes Moist, Normal Exam - Neck Exam Neck Exam: Full ROM, Normal Inspection. absent: Lymphadenopathy - Respiratory Exam Respiratory Exam: Clear to Ausculation Bilateral, NORMAL BREATHING PATTERN - Cardiovascular Exam Cardiovascular Exam: REGULAR RHYTHM, +S1, +S2. absent: Murmur - GI/Abdominal Exam GI & Abdominal Exam: Soft, Normal Bowel Sounds. absent: Tenderness - Exam Exam: NORMAL INSPECTION - Extremities Exam Extremities Exam: Full ROM, Normal Capillary Refill, Normal Inspection. absent : Joint Swelling, Pedal Edema - Back Exam Back Exam: NORMAL INSPECTION - Neurological Exam Neurological Exam: Alert, Awake, CN II-XII Intact, Normal Gait, Oriented x3 - Psychiatric Exam Psychiatric exam: Normal Affect, Normal Mood - Skin Skin Exam: Dry, Intact, Normal Color, Warm Assessment and Plan - Assessment and Plan (Free Text) Assessment: Colitis finding of dilated appedix on CT -Diet as tolerated -Medical management -ABX -No surgery at this time KHOI Gutierrez
[2018-04-27] MEDS: Calcium-Vit D 500 mg-200 Units Tab UD PO SCH (09:57)
[2018-04-27] MEDS: Saccharomyces Boulardi 250 mg Cap PO SCH ×2 (09:57→17:28)
[2018-04-27] MEDS: Lactobacillus Acidophilus 500 MU Cap PO SCH ×2 (09:57→17:28)
[2018-04-27] MEDS: Pantoprazole 40 mg EC Tab PO SCH (09:57)
[2018-04-27] MEDS: Enoxaparin 40 mg Syringe SC SCH (09:59)
[2018-04-27] MEDS ORDERED: Potassium Chloride 20 mEq ER Tab PO ONE (10:00)
[2018-04-27] MEDS: Bismuth Subsalicylate 262 mg Chew Tab PO SCH ×4 (10:40→21:12)
--- NOTE | 2018-04-28 00:12 | CP.PCM.PN ---
Subjective - Date & Time of Evaluation Date of Evaluation: 04/27/18 Time of Evaluation: 16:00 - Subjective Subjective: Patient SEEN AND EXAMINED AT BEDSIDE Objective - Vital Signs/Intake and Output Vital Signs (last 24 hours): Temp Pulse Resp BP Pulse Ox 98 F 73 18 116/69 98 04/27/18 15:54 04/27/18 15:54 04/27/18 15:54 04/27/18 15:54 04/27/18 15:54 Intake and Output: 04/27/18 04/28/18 18:59 06:59 Intake Total 700 600 Output Total 3 Balance 700 597 - Medications Medications: Current Medications Acetaminophen (Tylenol 325mg Tab) 650 mg PO Q6 PRN PRN Reason: Fever >100.4 F Last Admin: 04/21/18 15:42 Dose: 650 mg Bismuth Subsalicylate (Pepto Bismol) 262 mg PO QID [facility] Last Admin: 04/27/18 21:12 Dose: 262 mg Calcium/Vitamin D (Oyster Shell Calcium/Vitamin D 500 Mg-200 Iu) 1 tab PO DAILY [facility] Last Admin: 04/27/18 09:57 Dose: 1 tab Enoxaparin Sodium (Lovenox) 40 mg SC DAILY [facility] Last Admin: 04/27/18 09:59 Dose: 40 mg Gabapentin (Neurontin) 100 mg PO DAILY [facility] Last Admin: 04/27/18 09:57 Dose: 100 mg Metronidazole (Flagyl) 500 mg in 100 mls @ 100 mls/hr IVPB Q8 [facility] PRN Reason: Protocol Last Admin: 04/27/18 21:13 Dose: 100 mls/hr Lactobacillus Acidophilus (Bacid Acidophilus) 1 cap PO BID [facility] Last Admin: 04/27/18 17:28 Dose: 1 cap Mesalamine (Delzicol Dr) 1,600 mg PO TID [facility] Last Admin: 04/27/18 17:28 Dose: 1,600 mg Nortriptyline HCl (Pamelor) 25 mg PO BID [facility] Last Admin: 04/27/18 17:28 Dose: 25 mg Pantoprazole Sodium (Protonix Ec Tab) 40 mg PO DAILY [facility] Last Admin: 04/27/18 09:57 Dose: 40 mg Saccharomyces Boulardii (Florastor) 250 mg PO BID [facility] Last Admin: 04/27/18 17:28 Dose: 250 mg Vancomycin HCl (Vancocin (Oral Or Rectal Use)) 250 mg PO Q6H [facility] PRN Reason: Protocol Last Admin: 04/27/18 17:28 Dose: 250 mg Zolpidem Tartrate (Ambien) 5 mg PO HS PRN PRN Reason: Insomnia Last Admin: 04/25/18 22:15 Dose: 5 mg - Labs Labs: 04/27/18 07:30 04/27/18 07:30 Assessment and Plan (1) C. difficile diarrhea Status: Acute (2) Diarrhea Status: Acute (3) Ulcerative colitis, chronic Status: Chronic
[2018-04-28] MEDS: Vancomycin 125 MG/5 ML SOLN (ORAL/RECTAL) PO SCH ×4 (05:56→23:18)
[2018-04-28] MEDS: metroNIDAZOLE IV 500 mg/100 ml 500 MG/100 ML BAG IVPB SCH ×3 (05:58→21:55)
[2018-04-28 08:28] LABS: BASO # 0.1 K/uL (0.0-0.2); BASO % 0.7 % (0.0-2.0); EOS # 1.4 K/uL (0.0-0.7); EOS % 19.5 % (0.0-4.0); HEMOGLOBIN 11.7 g/dL (11.0-16.0); LYMPH # 2.1 K/uL (1.0-4.3); LYMPH % 29.4 % (20.0-40.0); MEAN CELL VOLUME 93.8 fL (81.0-99.0); MEAN CORPUSCULAR HEMOGLOBIN 31.8 pg (27.0-31.0); MEAN CORPUSCULAR HGB CONC 33.9 g/dL (33.0-37.0); MEAN PLATELET VOLUME 8.4 fL (7.2-11.7); MONO # 0.8 K/uL (0.0-0.8); MONO % 11.2 % (0.0-10.0); NEUT # 2.9 K/uL (1.8-7.0); NEUT % 39.2 % (50.0-75.0); NRBC % 0.1 % (0.0-2.0); RBC 3.7 Mil/uL (3.80-5.20); RED CELL DISTRIBUTION WIDTH 15.1 % (11.5-14.5); WHITE BLOOD COUNT 7.3 K/uL (4.8-10.8)
[2018-04-28 08:42] LABS: ALBUMIN 2.8 g/dL (3.5-5.0); ALT/SGPT 33 U/L (9-52); AST/SGOT 24 U/L (14-36); BLOOD UREA NITROGEN 6 mg/dL (7-17); GFR AFRICAN-AMERICAN > 60; GFR NON-AFRICAN AMERICAN > 60
[2018-04-28] MEDS: Pantoprazole 40 mg EC Tab PO SCH (09:02)
[2018-04-28] MEDS: Enoxaparin 40 mg Syringe SC SCH (09:02)
[2018-04-28] MEDS: Saccharomyces Boulardi 250 mg Cap PO SCH ×2 (09:02→18:00)
[2018-04-28] MEDS: Calcium-Vit D 500 mg-200 Units Tab UD PO SCH (09:02)
[2018-04-28] MEDS: Lactobacillus Acidophilus 500 MU Cap PO SCH ×2 (09:03→17:27)
[2018-04-28] MEDS: Bismuth Subsalicylate 262 mg Chew Tab PO SCH ×4 (09:03→21:55)
--- NOTE | 2018-04-28 10:07 | CP.PCM.PN ---
Subjective - Date & Time of Evaluation Date of Evaluation: 04/28/18 Time of Evaluation: 10:03 - Subjective Subjective: General Surgery Progress Note for Dr. Paiz This 77F was seen and evaluatedthis Am at bedside no acute events reported overnight. the patient reports that her abdominal pain has resolved and that her diarrhea is improving. She denies any SOB or chest pain or any new and or concerning symptoms. Objective - Vital Signs/Intake and Output Vital Signs (last 24 hours): Temp Pulse Resp BP Pulse Ox 98.1 F 94 H 20 109/67 95 04/28/18 07:30 04/28/18 07:30 04/28/18 07:30 04/28/18 07:30 04/28/18 07:30 Intake and Output: 04/28/18 04/28/18 06:59 18:59 Intake Total 600 Output Total 3 Balance 597 - Medications Medications: Current Medications Acetaminophen (Tylenol 325mg Tab) 650 mg PO Q6 PRN PRN Reason: Fever >100.4 F Last Admin: 04/21/18 15:42 Dose: 650 mg Bismuth Subsalicylate (Pepto Bismol) 262 mg PO QID [facility] Last Admin: 04/28/18 09:03 Dose: 262 mg Calcium/Vitamin D (Oyster Shell Calcium/Vitamin D 500 Mg-200 Iu) 1 tab PO DAILY [facility] Last Admin: 04/28/18 09:02 Dose: 1 tab Enoxaparin Sodium (Lovenox) 40 mg SC DAILY [facility] Last Admin: 04/28/18 09:02 Dose: 40 mg Gabapentin (Neurontin) 100 mg PO DAILY [facility] Last Admin: 04/28/18 09:02 Dose: 100 mg Metronidazole (Flagyl) 500 mg in 100 mls @ 100 mls/hr IVPB Q8 [facility] PRN Reason: Protocol Last Admin: 04/28/18 05:58 Dose: 100 mls/hr Lactobacillus Acidophilus (Bacid Acidophilus) 1 cap PO BID [facility] Last Admin: 04/28/18 09:03 Dose: 1 cap Mesalamine (Delzicol Dr) 1,600 mg PO TID [facility] Last Admin: 04/28/18 09:03 Dose: 1,600 mg Nortriptyline HCl (Pamelor) 25 mg PO BID [facility] Last Admin: 04/28/18 09:02 Dose: 25 mg Pantoprazole Sodium (Protonix Ec Tab) 40 mg PO DAILY [facility] Last Admin: 04/28/18 09:02 Dose: 40 mg Saccharomyces Boulardii (Florastor) 250 mg PO BID [facility] Last Admin: 04/28/18 09:02 Dose: 250 mg Vancomycin HCl (Vancocin (Oral Or Rectal Use)) 250 mg PO Q6H [facility] PRN Reason: Protocol Last Admin: 04/28/18 05:56 Dose: 250 mg Zolpidem Tartrate (Ambien) 5 mg PO HS PRN PRN Reason: Insomnia Last Admin: 04/25/18 22:15 Dose: 5 mg - Labs Labs: 04/28/18 08:12 04/28/18 08:12 - Constitutional Appears: Non-toxic, No Acute Distress - Head Exam Head Exam: ATRAUMATIC, NORMOCEPHALIC - Eye Exam Eye Exam: EOMI - ENT Exam ENT Exam: Mucous Membranes Moist - Respiratory Exam Respiratory Exam: NORMAL BREATHING PATTERN - Cardiovascular Exam Cardiovascular Exam: +S1, +S2 - GI/Abdominal Exam GI & Abdominal Exam: Soft. absent: Distended, Firm, Guarding, Rigid, Tenderness - Neurological Exam Neurological Exam: Alert, Awake - Psychiatric Exam Psychiatric exam: Normal Affect, Normal Mood - Skin Skin Exam: Dry, Intact Assessment and Plan - Assessment and Plan (Free Text) Assessment: 77F with abdomonal pain and diarrhea. Stool studies negative cultures and negative for parasites and Ova, C. Diff positive on 04/20 Plan: Diet PER GI Abx per ID Continue medical managment No surgical intervention at this time further recs per Dr. Izabel Simms PGY2
[2018-04-28] MEDS: Potassium Chloride 20 mEq ER Tab PO SCH ×2 (11:40→15:15)
--- NOTE | 2018-04-28 14:55 | CP.PCM.PN ---
Subjective - Date & Time of Evaluation Date of Evaluation: 04/28/18 Time of Evaluation: 09:00 - Subjective Subjective: FEELING BETTER. LESS diarrhea. Objective - Vital Signs/Intake and Output Vital Signs (last 24 hours): Temp Pulse Resp BP Pulse Ox 98.1 F 94 H 20 109/67 95 04/28/18 07:30 04/28/18 07:30 04/28/18 07:30 04/28/18 07:30 04/28/18 07:30 Intake and Output: 04/28/18 04/28/18 06:59 18:59 Intake Total 600 300 Output Total 3 Balance 597 300 - Medications Medications: Current Medications Acetaminophen (Tylenol 325mg Tab) 650 mg PO Q6 PRN PRN Reason: Fever >100.4 F Last Admin: 04/21/18 15:42 Dose: 650 mg Bismuth Subsalicylate (Pepto Bismol) 262 mg PO QID [facility] Last Admin: 04/28/18 13:02 Dose: 262 mg Calcium/Vitamin D (Oyster Shell Calcium/Vitamin D 500 Mg-200 Iu) 1 tab PO DAILY [facility] Last Admin: 04/28/18 09:02 Dose: 1 tab Gabapentin (Neurontin) 100 mg PO DAILY [facility] Last Admin: 04/28/18 09:02 Dose: 100 mg Metronidazole (Flagyl) 500 mg in 100 mls @ 100 mls/hr IVPB Q8 [facility] PRN Reason: Protocol Last Admin: 04/28/18 13:02 Dose: 100 mls/hr Lactobacillus Acidophilus (Bacid Acidophilus) 1 cap PO BID [facility] Last Admin: 04/28/18 09:03 Dose: 1 cap Mesalamine (Delzicol Dr) 1,600 mg PO TID [facility] Last Admin: 04/28/18 13:02 Dose: 1,600 mg Nortriptyline HCl (Pamelor) 25 mg PO BID [facility] Last Admin: 04/28/18 09:02 Dose: 25 mg Pantoprazole Sodium (Protonix Ec Tab) 40 mg PO DAILY [facility] Last Admin: 04/28/18 09:02 Dose: 40 mg Potassium Chloride (K-Dur 20 Meq Er Tab) 40 meq PO Q4H [facility] Stop: 04/28/18 15:31 Last Admin: 04/28/18 11:40 Dose: 40 meq Saccharomyces Boulardii (Florastor) 250 mg PO BID [facility] Last Admin: 04/28/18 09:02 Dose: 250 mg Vancomycin HCl (Vancocin (Oral Or Rectal Use)) 250 mg PO Q6H [facility] PRN Reason: Protocol Last Admin: 04/28/18 11:40 Dose: 250 mg Zolpidem Tartrate (Ambien) 5 mg PO HS PRN PRN Reason: Insomnia Last Admin: 04/25/18 22:15 Dose: 5 mg - Labs Labs: 04/28/18 08:12 04/28/18 08:12 - Constitutional Appears: Non-toxic, Chronically Ill - Head Exam Head Exam: NORMOCEPHALIC - Eye Exam Eye Exam: PERRL - ENT Exam ENT Exam: Mucous Membranes Dry - Neck Exam Neck Exam: absent: Lymphadenopathy - Respiratory Exam Respiratory Exam: Decreased Breath Sounds - Cardiovascular Exam Cardiovascular Exam: REGULAR RHYTHM - GI/Abdominal Exam GI & Abdominal Exam: Distended Assessment and Plan (1) Bloody diarrhea Status: Acute (2) Colitis Status: Acute - Assessment and Plan (Free Text) Assessment: cont rx GI follow up
--- NOTE | 2018-04-28 17:01 | CP.PCM.PN ---
Subjective - Date & Time of Evaluation Date of Evaluation: 04/28/18 Time of Evaluation: 10:30 - Subjective Subjective: REports FEELING BETTER. LESS diarrhea.no blood Denies abd pain , fever, chills, Cp ,SOB, cough, hematuria, hemoptysis no camejo . no body aches Objective Objective - Vital Signs/Intake and Output Vital Signs (last 24 hours): Temp Pulse Resp BP Pulse Ox 97.9 F 94 H 20 121/74 99 04/28/18 15:10 04/28/18 15:10 04/28/18 15:10 04/28/18 15:10 04/28/18 15:10 Intake and Output: 04/28/18 04/28/18 06:59 18:59 Intake Total 600 330 Output Total 3 1 Balance 597 329 - Medications Medications: Current Medications Acetaminophen (Tylenol 325mg Tab) 650 mg PO Q6 PRN PRN Reason: Fever >100.4 F Last Admin: 04/21/18 15:42 Dose: 650 mg Bismuth Subsalicylate (Pepto Bismol) 262 mg PO QID [facility] Last Admin: 04/28/18 13:02 Dose: 262 mg Calcium/Vitamin D (Oyster Shell Calcium/Vitamin D 500 Mg-200 Iu) 1 tab PO DAILY [facility] Last Admin: 04/28/18 09:02 Dose: 1 tab Gabapentin (Neurontin) 100 mg PO DAILY [facility] Last Admin: 04/28/18 09:02 Dose: 100 mg Metronidazole (Flagyl) 500 mg in 100 mls @ 100 mls/hr IVPB Q8 [facility] PRN Reason: Protocol Last Admin: 04/28/18 13:02 Dose: 100 mls/hr Lactobacillus Acidophilus (Bacid Acidophilus) 1 cap PO BID [facility] Last Admin: 04/28/18 09:03 Dose: 1 cap Mesalamine (Delzicol Dr) 1,600 mg PO TID [facility] Last Admin: 04/28/18 13:02 Dose: 1,600 mg Nortriptyline HCl (Pamelor) 25 mg PO BID [facility] Last Admin: 04/28/18 09:02 Dose: 25 mg Pantoprazole Sodium (Protonix Ec Tab) 40 mg PO DAILY [facility] Last Admin: 04/28/18 09:02 Dose: 40 mg Saccharomyces Boulardii (Florastor) 250 mg PO BID [facility] Last Admin: 04/28/18 09:02 Dose: 250 mg Vancomycin HCl (Vancocin (Oral Or Rectal Use)) 250 mg PO Q6H [facility] PRN Reason: Protocol Last Admin: 04/28/18 16:47 Dose: 250 mg Zolpidem Tartrate (Ambien) 5 mg PO HS PRN PRN Reason: Insomnia Last Admin: 04/25/18 22:15 Dose: 5 mg - Labs Labs: 04/28/18 08:12 04/28/18 08:12 - Constitutional Appears: Well, Non-toxic - Eye Exam Eye Exam: EOMI, Normal appearance, PERRL Pupil Exam: NORMAL ACCOMODATION - ENT Exam ENT Exam: Mucous Membranes Moist, Normal Exam, Normal Oropharynx - Neck Exam Neck Exam: Full ROM, Normal Inspection - Extremities Exam Extremities Exam: Full ROM, Normal Inspection - Psychiatric Exam Psychiatric exam: Normal Affect, Normal Mood - Skin Skin Exam: Normal Color Assessment and Plan (1) C. difficile diarrhea Status: Acute (2) Diarrhea Status: Acute (3) Bloody diarrhea Status: Acute (4) Colitis Status: Acute - Assessment and Plan (Free Text) Plan: gi and id is on the case , cont, same treatment will f/u
[2018-04-29] MEDS: Vancomycin 125 MG/5 ML SOLN (ORAL/RECTAL) PO SCH ×4 (05:00→22:02)
[2018-04-29] MEDS: metroNIDAZOLE IV 500 mg/100 ml 500 MG/100 ML BAG IVPB SCH ×2 (06:08→14:01)
[2018-04-29 08:37] LABS: ALBUMIN 2.9 g/dL (3.5-5.0); ALT/SGPT 31 U/L (9-52); AST/SGOT 22 U/L (14-36); BLOOD UREA NITROGEN 5 mg/dL (7-17); CALCIUM 8.2 mg/dl (8.6-10.4); GFR AFRICAN-AMERICAN > 60; GFR NON-AFRICAN AMERICAN > 60
--- NOTE | 2018-04-29 09:40 | CP.PCM.PN ---
Subjective - Date & Time of Evaluation Date of Evaluation: 04/29/18 Time of Evaluation: 09:37 - Subjective Subjective: Patient reports that the bowel movements remain frequent, but are now more formed. She denies having rectal bleeding, abdominal pain , nausea, vomiting. Her appetite is still poor, though she eats the food which her family brings in for her. Objective - Vital Signs/Intake and Output Vital Signs (last 24 hours): Temp Pulse Resp BP Pulse Ox 98.0 F 97 H 20 96/60 L 96 04/29/18 08:06 04/29/18 08:06 04/29/18 08:06 04/29/18 08:06 04/29/18 08:06 Intake and Output: 04/29/18 04/29/18 06:59 18:59 Intake Total 100 Balance 100 - Medications Medications: Current Medications Acetaminophen (Tylenol 325mg Tab) 650 mg PO Q6 PRN PRN Reason: Fever >100.4 F Last Admin: 04/21/18 15:42 Dose: 650 mg Bismuth Subsalicylate (Pepto Bismol) 262 mg PO QID [facility] Last Admin: 04/28/18 21:55 Dose: 262 mg Calcium/Vitamin D (Oyster Shell Calcium/Vitamin D 500 Mg-200 Iu) 1 tab PO DAILY [facility] Last Admin: 04/28/18 09:02 Dose: 1 tab Gabapentin (Neurontin) 100 mg PO DAILY [facility] Last Admin: 04/28/18 09:02 Dose: 100 mg Metronidazole (Flagyl) 500 mg in 100 mls @ 100 mls/hr IVPB Q8 [facility] PRN Reason: Protocol Last Admin: 04/29/18 06:08 Dose: 100 mls/hr Lactobacillus Acidophilus (Bacid Acidophilus) 1 cap PO BID [facility] Last Admin: 04/28/18 17:27 Dose: 1 cap Mesalamine (Delzicol Dr) 1,600 mg PO TID [facility] Last Admin: 04/28/18 17:28 Dose: 1,600 mg Nortriptyline HCl (Pamelor) 25 mg PO BID [facility] Last Admin: 04/28/18 17:50 Dose: 25 mg Pantoprazole Sodium (Protonix Ec Tab) 40 mg PO DAILY [facility] Last Admin: 04/28/18 09:02 Dose: 40 mg Saccharomyces Boulardii (Florastor) 250 mg PO BID [facility] Last Admin: 04/28/18 18:00 Dose: 250 mg Vancomycin HCl (Vancocin (Oral Or Rectal Use)) 250 mg PO Q6H [facility] PRN Reason: Protocol Last Admin: 04/29/18 05:00 Dose: 250 mg Zolpidem Tartrate (Ambien) 5 mg PO HS PRN PRN Reason: Insomnia Last Admin: 04/25/18 22:15 Dose: 5 mg - Labs Labs: 04/28/18 08:12 04/29/18 08:11 - Constitutional Appears: No Acute Distress - Head Exam Head Exam: ATRAUMATIC, NORMOCEPHALIC - Eye Exam Eye Exam: EOMI, PERRL - Neck Exam Neck Exam: absent: Lymphadenopathy, Thyromegaly - Respiratory Exam Respiratory Exam: NORMAL BREATHING PATTERN. absent: Rales, Rhonchi, Wheezes - Cardiovascular Exam Cardiovascular Exam: REGULAR RHYTHM, +S1, +S2. absent: Gallop, Rubs, Murmur - GI/Abdominal Exam GI & Abdominal Exam: Soft, Normal Bowel Sounds. absent: Tenderness, Mass, Organomegaly - Rectal Exam Rectal Exam: Deferred - Extremities Exam Extremities Exam: absent: Calf Tenderness, Pedal Edema Assessment and Plan (1) C. difficile diarrhea Assessment & Plan: The bowel movements are still frequent but not quite as loose. Will continue oral vancomycin and Florastor. If possible, we will start Entocort. Status: Acute
[2018-04-29] MEDS ORDERED: Potassium Chloride 20 mEq ER Tab PO ONE (09:53)
[2018-04-29] MEDS: Saccharomyces Boulardi 250 mg Cap PO SCH ×2 (10:30→17:49)
[2018-04-29] MEDS: Lactobacillus Acidophilus 500 MU Cap PO SCH ×2 (10:31→17:44)
[2018-04-29] MEDS: Bismuth Subsalicylate 262 mg Chew Tab PO SCH ×4 (10:31→21:35)
[2018-04-29] MEDS: Calcium-Vit D 500 mg-200 Units Tab UD PO SCH (10:31)
[2018-04-29] MEDS: Pantoprazole 40 mg EC Tab PO SCH (10:46)
[2018-04-29 11:42] LABS: MEAN CELL VOLUME 94.9 fL (81.0-99.0); MEAN CORPUSCULAR HEMOGLOBIN 32.5 pg (27.0-31.0); MEAN CORPUSCULAR HGB CONC 34.3 g/dL (33.0-37.0); MEAN PLATELET VOLUME 8.7 fL (7.2-11.7); RBC 3.98 Mil/uL (3.80-5.20); RED CELL DISTRIBUTION WIDTH 15.1 % (11.5-14.5); WHITE BLOOD COUNT 7.4 K/uL (4.8-10.8)
[2018-04-29 12:24] LABS: BASO # 0.1 K/uL (0.0-0.2); EOS # 1.3 K/uL (0.0-0.7); LYMPH # 2.8 K/uL (1.0-4.3); MONO # 0.6 K/uL (0.0-0.8); NEUT # 2.7 K/uL (1.8-7.0)
--- NOTE | 2018-04-30 00:10 | CP.PCM.PN ---
Subjective - Date & Time of Evaluation Date of Evaluation: 04/29/18 Time of Evaluation: 18:00 - Subjective Subjective: Pt seen and examined at bedside Objective - Vital Signs/Intake and Output Vital Signs (last 24 hours): Temp Pulse Resp BP Pulse Ox 97.8 F 86 20 121/77 97 04/29/18 23:29 04/29/18 23:29 04/29/18 23:29 04/29/18 23:29 04/29/18 23:29 Intake and Output: 04/29/18 04/30/18 18:59 06:59 Intake Total 500 Output Total 1 Balance 499 - Medications Medications: Current Medications Acetaminophen (Tylenol 325mg Tab) 650 mg PO Q6 PRN PRN Reason: Fever >100.4 F Last Admin: 04/21/18 15:42 Dose: 650 mg Bismuth Subsalicylate (Pepto Bismol) 262 mg PO QID [facility] Last Admin: 04/29/18 21:35 Dose: 262 mg Calcium/Vitamin D (Oyster Shell Calcium/Vitamin D 500 Mg-200 Iu) 1 tab PO DAILY [facility] Last Admin: 04/29/18 10:31 Dose: 1 tab Gabapentin (Neurontin) 100 mg PO DAILY [facility] Last Admin: 04/29/18 10:31 Dose: 100 mg Lactobacillus Acidophilus (Bacid Acidophilus) 1 cap PO BID [facility] Last Admin: 04/29/18 17:44 Dose: 1 cap Mesalamine (Delzicol Dr) 1,600 mg PO TID [facility] Last Admin: 04/29/18 17:44 Dose: 1,600 mg Metronidazole (Flagyl) 500 mg PO Q8 [facility] Last Admin: 04/29/18 21:34 Dose: 500 mg Nortriptyline HCl (Pamelor) 25 mg PO BID [facility] Last Admin: 04/29/18 17:44 Dose: 25 mg Pantoprazole Sodium (Protonix Ec Tab) 40 mg PO DAILY [facility] Last Admin: 04/29/18 10:46 Dose: 40 mg Saccharomyces Boulardii (Florastor) 250 mg PO BID [facility] Last Admin: 04/29/18 17:49 Dose: 250 mg Vancomycin HCl (Vancocin (Oral Or Rectal Use)) 250 mg PO Q6H [facility] PRN Reason: Protocol Last Admin: 04/29/18 22:02 Dose: 250 mg Zolpidem Tartrate (Ambien) 5 mg PO HS PRN PRN Reason: Insomnia Last Admin: 04/25/18 22:15 Dose: 5 mg - Labs Labs: 04/29/18 11:18 04/29/18 08:11 Assessment and Plan (1) C. difficile diarrhea Status: Acute (2) Diarrhea Status: Acute (3) Ulcerative colitis, chronic Status: Chronic
[2018-04-30] MEDS: Vancomycin 125 MG/5 ML SOLN (ORAL/RECTAL) PO SCH ×4 (05:16→22:05)
[2018-04-30 07:43] LABS: BASO # 0.1 K/uL (0.0-0.2); BASO % 0.8 % (0.0-2.0); EOS # 1.9 K/uL (0.0-0.7); HEMOGLOBIN 12.5 g/dL (11.0-16.0); LYMPH % 26.2 % (20.0-40.0); MEAN CELL VOLUME 94.3 fL (81.0-99.0); MEAN CORPUSCULAR HEMOGLOBIN 31.5 pg (27.0-31.0); MEAN CORPUSCULAR HGB CONC 33.4 g/dL (33.0-37.0); MEAN PLATELET VOLUME 8.3 fL (7.2-11.7); MONO # 0.8 K/uL (0.0-0.8); MONO % 9.8 % (0.0-10.0); NEUT % 38.2 % (50.0-75.0); NRBC % 0.2 % (0.0-2.0); PLATELET COUNT 383 K/uL (130-400); RBC 3.96 Mil/uL (3.80-5.20); RED CELL DISTRIBUTION WIDTH 15.2 % (11.5-14.5); WHITE BLOOD COUNT 7.7 K/uL (4.8-10.8)
[2018-04-30 07:58] LABS: ALBUMIN 3.2 g/dL (3.5-5.0); BLOOD UREA NITROGEN 6 mg/dL (7-17); CALCIUM 8.5 mg/dl (8.6-10.4); GFR AFRICAN-AMERICAN > 60; GFR NON-AFRICAN AMERICAN > 60
[2018-04-30 07:59] LABS: ALT/SGPT 30 U/L (9-52); AST/SGOT 27 U/L (14-36)
[2018-04-30 08:40] LABS: BANDS 1 % (0-2); LYMPHOCYTE 28 % (20-40); TOTAL CELLS COUNTED 100
[2018-04-30 08:41] LABS: EOSINOPHIL 20 % (0-4); MONOCYTE 10 % (0-10); NEUTROPHIL 41 % (50-75); PLATELET ESTIMATE NORMAL (NORMAL)
[2018-04-30 08:42] LABS: ANISOCYTOSIS SLIGHT
[2018-04-30] MEDS: Bismuth Subsalicylate 262 mg Chew Tab PO SCH ×4 (10:03→22:04)
[2018-04-30] MEDS: Lactobacillus Acidophilus 500 MU Cap PO SCH ×2 (10:04→17:49)
[2018-04-30] MEDS: Calcium-Vit D 500 mg-200 Units Tab UD PO SCH (10:10)
[2018-04-30] MEDS: Saccharomyces Boulardi 250 mg Cap PO SCH ×2 (10:10→17:49)
[2018-04-30] MEDS: Pantoprazole 40 mg EC Tab PO SCH (10:10)
[2018-04-30 11:17] LABS: % CD4 (T HELPER CELL) 69 Percent (30-61); % CD8 (SUPPRESSOR T CELL) 12 Percent (12-42); ABSOLUTE CD4 CELLS 1592 Cells/mcL (490-1740); ABSOLUTE CD8 CELLS 287 Cells/mcL (180-1170); ABSOLUTE LYMPHOCYTES 2317 Cells/mcL (850-3900); HELPER/SUPPRESSOR RATIO 5.54 Ratio (0.86-5.00)
[2018-04-30] MEDS: Potassium Chloride 20 mEq ER Tab PO SCH (12:32)
--- NOTE | 2018-04-30 16:41 | CP.PCM.PN ---
Subjective - Date & Time of Evaluation Date of Evaluation: 04/30/18 Time of Evaluation: 16:36 - Subjective Subjective: Patient continues to complain of frequent stools, though the bowel movements are no longer watery. She denies having nausea, vomiting, abdominal pain. Objective - Vital Signs/Intake and Output Vital Signs (last 24 hours): Temp Pulse Resp BP Pulse Ox 98.8 F 98 H 20 112/74 96 04/30/18 16:00 04/30/18 16:00 04/30/18 16:00 04/30/18 16:00 04/30/18 16:00 Intake and Output: 04/30/18 04/30/18 06:59 18:59 Intake Total 640 Balance 640 - Medications Medications: Current Medications Acetaminophen (Tylenol 325mg Tab) 650 mg PO Q6 PRN PRN Reason: Fever >100.4 F Last Admin: 04/21/18 15:42 Dose: 650 mg Bismuth Subsalicylate (Pepto Bismol) 262 mg PO QID [facility] Last Admin: 04/30/18 13:16 Dose: 262 mg Calcium/Vitamin D (Oyster Shell Calcium/Vitamin D 500 Mg-200 Iu) 1 tab PO DAILY [facility] Last Admin: 04/30/18 10:10 Dose: 1 tab Gabapentin (Neurontin) 100 mg PO DAILY [facility] Last Admin: 04/30/18 10:10 Dose: 100 mg Lactobacillus Acidophilus (Bacid Acidophilus) 1 cap PO BID [facility] Last Admin: 04/30/18 10:04 Dose: 1 cap Mesalamine (Delzicol Dr) 1,600 mg PO TID [facility] Last Admin: 04/30/18 14:11 Dose: 1,600 mg Metronidazole (Flagyl) 500 mg PO Q8 [facility] Last Admin: 04/30/18 13:16 Dose: 500 mg Nortriptyline HCl (Pamelor) 25 mg PO BID [facility] Last Admin: 04/30/18 10:04 Dose: 25 mg Pantoprazole Sodium (Protonix Ec Tab) 40 mg PO DAILY [facility] Last Admin: 04/30/18 10:10 Dose: 40 mg Potassium Chloride (K-Dur 20 Meq Er Tab) 40 meq PO DAILY [facility] Last Admin: 04/30/18 12:32 Dose: 40 meq Saccharomyces Boulardii (Florastor) 250 mg PO BID [facility] Last Admin: 04/30/18 10:10 Dose: 250 mg Vancomycin HCl (Vancocin (Oral Or Rectal Use)) 250 mg PO Q6H [facility] PRN Reason: Protocol Last Admin: 04/30/18 10:11 Dose: 250 mg Zolpidem Tartrate (Ambien) 5 mg PO HS PRN PRN Reason: Insomnia Last Admin: 04/25/18 22:15 Dose: 5 mg - Labs Labs: 04/30/18 07:32 04/30/18 07:32 - Constitutional Appears: No Acute Distress - Head Exam Head Exam: ATRAUMATIC, NORMOCEPHALIC - Eye Exam Eye Exam: EOMI, PERRL - Neck Exam Neck Exam: absent: Lymphadenopathy, Thyromegaly - Respiratory Exam Respiratory Exam: NORMAL BREATHING PATTERN. absent: Rales, Rhonchi, Wheezes - Cardiovascular Exam Cardiovascular Exam: REGULAR RHYTHM, +S1, +S2. absent: Gallop, Rubs, Murmur - GI/Abdominal Exam GI & Abdominal Exam: Soft, Normal Bowel Sounds. absent: Tenderness, Mass, Organomegaly - Rectal Exam Rectal Exam: Deferred - Extremities Exam Extremities Exam: absent: Calf Tenderness, Pedal Edema Assessment and Plan (1) C. difficile diarrhea Assessment & Plan: Frequent bowel movements continue. Entocort is not on the formulary, but we will try to obtain it from the outpatient pharmacy. Biopsy results are pending. Status: Acute
[2018-05-01] MEDS: Vancomycin 125 MG/5 ML SOLN (ORAL/RECTAL) PO SCH ×4 (05:25→22:03)
--- NOTE | 2018-05-01 07:48 | CP.PCM.PN ---
Subjective - Date & Time of Evaluation Date of Evaluation: 04/30/18 Time of Evaluation: 18:00 - Subjective Subjective: Pt seen and examined by me Objective - Vital Signs/Intake and Output Vital Signs (last 24 hours): Temp Pulse Resp BP Pulse Ox 97.7 F 97 H 20 116/73 98 05/01/18 07:00 05/01/18 07:00 05/01/18 07:00 05/01/18 07:00 05/01/18 07:00 Intake and Output: 05/01/18 05/01/18 06:59 18:59 Intake Total 200 Balance 200 - Medications Medications: Current Medications Acetaminophen (Tylenol 325mg Tab) 650 mg PO Q6 PRN PRN Reason: Fever >100.4 F Last Admin: 04/21/18 15:42 Dose: 650 mg Bismuth Subsalicylate (Pepto Bismol) 262 mg PO QID [facility] Last Admin: 04/30/18 22:04 Dose: 262 mg Calcium/Vitamin D (Oyster Shell Calcium/Vitamin D 500 Mg-200 Iu) 1 tab PO DAILY [facility] Last Admin: 04/30/18 10:10 Dose: 1 tab Gabapentin (Neurontin) 100 mg PO DAILY [facility] Last Admin: 04/30/18 10:10 Dose: 100 mg Lactobacillus Acidophilus (Bacid Acidophilus) 1 cap PO BID [facility] Last Admin: 04/30/18 17:49 Dose: 1 cap Mesalamine (Delzicol Dr) 1,600 mg PO TID [facility] Last Admin: 04/30/18 17:49 Dose: 1,600 mg Metronidazole (Flagyl) 500 mg PO Q8 [facility] Last Admin: 05/01/18 05:25 Dose: 500 mg Nortriptyline HCl (Pamelor) 25 mg PO BID [facility] Last Admin: 04/30/18 18:24 Dose: 25 mg Pantoprazole Sodium (Protonix Ec Tab) 40 mg PO DAILY [facility] Last Admin: 04/30/18 10:10 Dose: 40 mg Potassium Chloride (K-Dur 20 Meq Er Tab) 40 meq PO DAILY [facility] Last Admin: 04/30/18 12:32 Dose: 40 meq Saccharomyces Boulardii (Florastor) 250 mg PO BID [facility] Last Admin: 04/30/18 17:49 Dose: 250 mg Vancomycin HCl (Vancocin (Oral Or Rectal Use)) 250 mg PO Q6H [facility] PRN Reason: Protocol Last Admin: 05/01/18 05:25 Dose: 250 mg Zolpidem Tartrate (Ambien) 5 mg PO HS PRN PRN Reason: Insomnia Last Admin: 04/25/18 22:15 Dose: 5 mg - Labs Labs: 04/30/18 07:32 04/30/18 07:32 Assessment and Plan (1) C. difficile diarrhea Status: Acute (2) Diarrhea Status: Acute (3) Ulcerative colitis, chronic Status: Chronic
[2018-05-01 08:16] LABS: BASO # 0.1 K/uL (0.0-0.2); EOS # 1.4 K/uL (0.0-0.7); EOS % 20.9 % (0.0-4.0); HEMOGLOBIN 12.5 g/dL (11.0-16.0); LYMPH # 1.8 K/uL (1.0-4.3); LYMPH % 26.7 % (20.0-40.0); MEAN CELL VOLUME 94.9 fL (81.0-99.0); MEAN CORPUSCULAR HEMOGLOBIN 31.8 pg (27.0-31.0); MEAN CORPUSCULAR HGB CONC 33.5 g/dL (33.0-37.0); MEAN PLATELET VOLUME 8.1 fL (7.2-11.7); MONO # 0.8 K/uL (0.0-0.8); MONO % 11.1 % (0.0-10.0); NEUT # 2.8 K/uL (1.8-7.0); NEUT % 40.3 % (50.0-75.0); NRBC % 0.1 % (0.0-2.0); PLATELET COUNT 376 K/uL (130-400); RBC 3.93 Mil/uL (3.80-5.20); RED CELL DISTRIBUTION WIDTH 14.9 % (11.5-14.5); WHITE BLOOD COUNT 6.9 K/uL (4.8-10.8)
[2018-05-01 08:53] LABS: ALBUMIN 3.3 g/dL (3.5-5.0); ALT/SGPT 25 U/L (9-52); AST/SGOT 47 U/L (14-36); BLOOD UREA NITROGEN 5 mg/dL (7-17); CALCIUM 8.7 mg/dl (8.6-10.4); GFR AFRICAN-AMERICAN > 60; GFR NON-AFRICAN AMERICAN > 60
[2018-05-01 09:04] LABS: BASOPHIL 1 % (0-2); EOSINOPHIL 20 % (0-4); LYMPHOCYTE 28 % (20-40); MONOCYTE 9 % (0-10); NEUTROPHIL 42 % (50-75); PLATELET ESTIMATE NORMAL (NORMAL); TOTAL CELLS COUNTED 100
[2018-05-01 09:05] LABS: ANISOCYTOSIS SLIGHT; POIKILOCYTOSIS SLIGHT
[2018-05-01] MEDS: Saccharomyces Boulardi 250 mg Cap PO SCH ×2 (10:55→17:38)
[2018-05-01] MEDS: Potassium Chloride 20 mEq ER Tab PO SCH (10:55)
[2018-05-01] MEDS: Lactobacillus Acidophilus 500 MU Cap PO SCH ×2 (10:55→17:39)
[2018-05-01] MEDS: Pantoprazole 40 mg EC Tab PO SCH (11:00)
[2018-05-01] MEDS: Bismuth Subsalicylate 262 mg Chew Tab PO SCH ×4 (11:00→22:04)
[2018-05-01] MEDS: Calcium-Vit D 500 mg-200 Units Tab UD PO SCH (11:00)
--- NOTE | 2018-05-01 16:29 | CP.PCM.PN ---
Subjective - Date & Time of Evaluation Date of Evaluation: 05/01/18 Time of Evaluation: 16:27 - Subjective Subjective: Patient states that the bowel movements are still frequent, five times so far today, but more solid. She denies having nausea and vomiting. Her appetite remains poor. Nurses report that Entocort is not on formulary and pharmacy will not obtain it. Objective - Vital Signs/Intake and Output Vital Signs (last 24 hours): Temp Pulse Resp BP Pulse Ox 97.7 F 97 H 20 116/73 98 05/01/18 07:00 05/01/18 07:00 05/01/18 07:00 05/01/18 07:00 05/01/18 07:00 Intake and Output: 05/01/18 05/01/18 06:59 18:59 Intake Total 200 Balance 200 - Medications Medications: Current Medications Acetaminophen (Tylenol 325mg Tab) 650 mg PO Q6 PRN PRN Reason: Fever >100.4 F Last Admin: 04/21/18 15:42 Dose: 650 mg Bismuth Subsalicylate (Pepto Bismol) 262 mg PO QID [facility] Last Admin: 05/01/18 15:00 Dose: Not Given Calcium/Vitamin D (Oyster Shell Calcium/Vitamin D 500 Mg-200 Iu) 1 tab PO DAILY [facility] Last Admin: 05/01/18 11:00 Dose: Not Given Gabapentin (Neurontin) 100 mg PO DAILY [facility] Last Admin: 05/01/18 11:00 Dose: Not Given Lactobacillus Acidophilus (Bacid Acidophilus) 1 cap PO BID [facility] Last Admin: 05/01/18 10:55 Dose: 1 cap Mesalamine (Delzicol Dr) 1,600 mg PO TID [facility] Last Admin: 05/01/18 13:11 Dose: 1,600 mg Metronidazole (Flagyl) 500 mg PO Q8 [facility] Last Admin: 05/01/18 13:11 Dose: 500 mg Nortriptyline HCl (Pamelor) 25 mg PO BID [facility] Last Admin: 05/01/18 15:07 Dose: Not Given Pantoprazole Sodium (Protonix Ec Tab) 40 mg PO DAILY [facility] Last Admin: 05/01/18 11:00 Dose: Not Given Potassium Chloride (K-Dur 20 Meq Er Tab) 40 meq PO DAILY [facility] Last Admin: 05/01/18 10:55 Dose: 40 meq Saccharomyces Boulardii (Florastor) 250 mg PO BID [facility] Last Admin: 05/01/18 10:55 Dose: 250 mg Vancomycin HCl (Vancocin (Oral Or Rectal Use)) 250 mg PO Q6H [facility] PRN Reason: Protocol Last Admin: 05/01/18 11:06 Dose: 250 mg Zolpidem Tartrate (Ambien) 5 mg PO HS PRN PRN Reason: Insomnia Last Admin: 04/25/18 22:15 Dose: 5 mg - Labs Labs: 05/01/18 08:00 05/01/18 08:22 - Constitutional Appears: No Acute Distress - Head Exam Head Exam: ATRAUMATIC, NORMOCEPHALIC - Eye Exam Eye Exam: EOMI, PERRL - Neck Exam Neck Exam: Lymphadenopathy, Thyromegaly - Respiratory Exam Respiratory Exam: NORMAL BREATHING PATTERN. absent: Rales, Rhonchi, Wheezes - Cardiovascular Exam Cardiovascular Exam: REGULAR RHYTHM, +S1, +S2. absent: Gallop, Rubs, Murmur - GI/Abdominal Exam GI & Abdominal Exam: Soft, Normal Bowel Sounds. absent: Tenderness, Mass, Organomegaly - Rectal Exam Rectal Exam: Deferred - Extremities Exam Extremities Exam: absent: Calf Tenderness, Pedal Edema Assessment and Plan (1) C. difficile diarrhea Assessment & Plan: Diarrhea is essentially unchanged. Recommend Entocort. Patient will be followed up in the office. Status: Acute
--- NOTE | 2018-05-01 23:49 | CP.PCM.PN ---
Subjective - Date & Time of Evaluation Date of Evaluation: 05/01/18 Time of Evaluation: 19:00 - Subjective Subjective: Patient states that the bowel movements are still frequent, five times so far today, but more solid. She denies having nausea and vomiting. Her appetite remains poor. Nurses report that Entocort is not on formulary and pharmacy will not obtain it. Objective - Vital Signs/Intake and Output Vital Signs (last 24 hours): Temp Pulse Resp BP Pulse Ox 97.9 F 96 H 20 113/75 99 05/01/18 16:00 05/01/18 16:00 05/01/18 16:00 05/01/18 16:00 05/01/18 16:00 Intake and Output: 05/01/18 05/02/18 18:59 06:59 Intake Total 500 320 Balance 500 320 - Medications Medications: Current Medications Acetaminophen (Tylenol 325mg Tab) 650 mg PO Q6 PRN PRN Reason: Fever >100.4 F Last Admin: 04/21/18 15:42 Dose: 650 mg Bismuth Subsalicylate (Pepto Bismol) 262 mg PO QID [facility] Last Admin: 05/01/18 22:04 Dose: 262 mg Calcium/Vitamin D (Oyster Shell Calcium/Vitamin D 500 Mg-200 Iu) 1 tab PO DAILY [facility] Last Admin: 05/01/18 11:00 Dose: Not Given Lactobacillus Acidophilus (Bacid Acidophilus) 1 cap PO BID [facility] Last Admin: 05/01/18 17:39 Dose: 1 cap Mesalamine (Delzicol Dr) 1,600 mg PO TID [facility] Last Admin: 05/01/18 17:38 Dose: 1,600 mg Metronidazole (Flagyl) 500 mg PO Q8 [facility] Last Admin: 05/01/18 22:04 Dose: 500 mg Nortriptyline HCl (Pamelor) 25 mg PO HS [facility] Last Admin: 05/01/18 22:03 Dose: 25 mg Pantoprazole Sodium (Protonix Ec Tab) 40 mg PO DAILY [facility] Last Admin: 05/01/18 11:00 Dose: Not Given Potassium Chloride (K-Dur 20 Meq Er Tab) 40 meq PO DAILY [facility] Last Admin: 05/01/18 10:55 Dose: 40 meq Potassium Chloride (Potassium Chloride Oral Soln) 40 meq PO Q4 [facility] Stop: 05/02/18 04:01 Saccharomyces Boulardii (Florastor) 250 mg PO BID [facility] Last Admin: 05/01/18 17:38 Dose: 250 mg Vancomycin HCl (Vancocin (Oral Or Rectal Use)) 250 mg PO Q6H [facility] PRN Reason: Protocol Last Admin: 05/01/18 22:03 Dose: 250 mg Zolpidem Tartrate (Ambien) 5 mg PO HS PRN PRN Reason: Insomnia Last Admin: 04/25/18 22:15 Dose: 5 mg - Labs Labs: 05/01/18 08:00 05/01/18 08:22 Assessment and Plan (1) C. difficile diarrhea Status: Acute (2) Diarrhea Status: Acute (3) Ulcerative colitis, chronic Status: Chronic
[2018-05-02] MEDS: Potassium Chloride 20 mEq/15 ml LIQ UD PO SCH ×2 (00:18→04:04)
[2018-05-02] MEDS: Vancomycin 125 MG/5 ML SOLN (ORAL/RECTAL) PO SCH ×4 (05:17→22:30)
[2018-05-02 08:04] LABS: BASO % 0.3 % (0.0-2.0); EOS % 17.1 % (0.0-4.0); HEMOGLOBIN 13.6 g/dL (11.0-16.0); LYMPH # 1.8 K/uL (1.0-4.3); MEAN CELL VOLUME 93.9 fL (81.0-99.0); MEAN CORPUSCULAR HEMOGLOBIN 32.3 pg (27.0-31.0); MEAN CORPUSCULAR HGB CONC 34.4 g/dL (33.0-37.0); MEAN PLATELET VOLUME 8.5 fL (7.2-11.7); MONO # 0.9 K/uL (0.0-0.8); NEUT # 2.4 K/uL (1.8-7.0); NEUT % 39.6 % (50.0-75.0); RBC 4.2 Mil/uL (3.80-5.20); RED CELL DISTRIBUTION WIDTH 15.1 % (11.5-14.5); WHITE BLOOD COUNT 6.1 K/uL (4.8-10.8)
[2018-05-02 09:00] LABS: ALBUMIN 3.4 g/dL (3.5-5.0); ALT/SGPT 43 U/L (9-52); AST/SGOT 60 U/L (14-36); BLOOD UREA NITROGEN 6 mg/dL (7-17); CALCIUM 8.7 mg/dl (8.6-10.4); GFR AFRICAN-AMERICAN > 60; GFR NON-AFRICAN AMERICAN > 60
[2018-05-02] MEDS: Pantoprazole 40 mg EC Tab PO SCH (10:22)
[2018-05-02] MEDS: Calcium-Vit D 500 mg-200 Units Tab UD PO SCH (10:22)
[2018-05-02] MEDS: Saccharomyces Boulardi 250 mg Cap PO SCH ×2 (10:22→18:34)
[2018-05-02] MEDS: Bismuth Subsalicylate 262 mg Chew Tab PO SCH ×4 (10:23→22:30)
[2018-05-02] MEDS: Lactobacillus Acidophilus 500 MU Cap PO SCH ×2 (10:23→18:34)
[2018-05-02] MEDS: Potassium Chloride 20 mEq ER Tab PO SCH (10:24)
[2018-05-02] MEDS: Dextrose 5%/0.9% NS 1,000 ML IV SCH ×2 (11:01→23:04)
--- NOTE | 2018-05-02 14:36 | CP.PCM.PN ---
Subjective - Date & Time of Evaluation Date of Evaluation: 05/02/18 Time of Evaluation: 14:33 - Subjective Subjective: Patient complains of dizziness on standing up. She states that the bowel movements are still frequent, essentially unchanged in frequency and consistency. She denies having nausea and vomiting. Her appetite remains poor. We have been unable to obtain Entocort since it is not on formulary. Objective - Vital Signs/Intake and Output Vital Signs (last 24 hours): Temp Pulse Resp BP Pulse Ox 97.4 F L 95 H 20 106/70 96 05/02/18 07:56 05/02/18 07:56 05/02/18 07:56 05/02/18 07:56 05/02/18 07:56 Intake and Output: 05/02/18 05/02/18 06:59 18:59 Intake Total 320 Balance 320 - Medications Medications: Current Medications Acetaminophen (Tylenol 325mg Tab) 650 mg PO Q6 PRN PRN Reason: Fever >100.4 F Last Admin: 04/21/18 15:42 Dose: 650 mg Bismuth Subsalicylate (Pepto Bismol) 262 mg PO QID [facility] Last Admin: 05/02/18 13:19 Dose: 262 mg Calcium/Vitamin D (Oyster Shell Calcium/Vitamin D 500 Mg-200 Iu) 1 tab PO DAILY [facility] Last Admin: 05/02/18 10:22 Dose: 1 tab Dextrose/Sodium Chloride (Dextrose 5%/0.9% Ns 1000 Ml) 1,000 mls @ 100 mls/hr IV .Q10H [facility] Last Admin: 05/02/18 11:01 Dose: 100 mls/hr Lactobacillus Acidophilus (Bacid Acidophilus) 1 cap PO BID [facility] Last Admin: 05/02/18 10:23 Dose: 1 cap Mesalamine (Delzicol Dr) 1,600 mg PO TID [facility] Last Admin: 05/02/18 13:19 Dose: 1,600 mg Metronidazole (Flagyl) 500 mg PO Q8 [facility] Last Admin: 05/02/18 13:18 Dose: 500 mg Nortriptyline HCl (Pamelor) 25 mg PO HS [facility] Last Admin: 05/01/18 22:03 Dose: 25 mg Pantoprazole Sodium (Protonix Ec Tab) 40 mg PO DAILY [facility] Last Admin: 05/02/18 10:22 Dose: 40 mg Potassium Chloride (K-Dur 20 Meq Er Tab) 40 meq PO DAILY [facility] Last Admin: 05/02/18 10:24 Dose: Not Given Saccharomyces Boulardii (Florastor) 250 mg PO BID [facility] Last Admin: 05/02/18 10:22 Dose: 250 mg Vancomycin HCl (Vancocin (Oral Or Rectal Use)) 250 mg PO Q6H [facility] PRN Reason: Protocol Last Admin: 05/02/18 10:22 Dose: 250 mg Zolpidem Tartrate (Ambien) 5 mg PO HS PRN PRN Reason: Insomnia Last Admin: 04/25/18 22:15 Dose: 5 mg - Labs Labs: 05/02/18 07:41 05/02/18 07:41 - Constitutional Appears: No Acute Distress - Head Exam Head Exam: ATRAUMATIC, NORMOCEPHALIC - Eye Exam Eye Exam: EOMI, PERRL - Neck Exam Neck Exam: absent: Lymphadenopathy, Thyromegaly - Respiratory Exam Respiratory Exam: NORMAL BREATHING PATTERN. absent: Rales, Rhonchi, Wheezes - Cardiovascular Exam Cardiovascular Exam: REGULAR RHYTHM, +S1, +S2. absent: Gallop, Rubs, Murmur - GI/Abdominal Exam GI & Abdominal Exam: Soft, Normal Bowel Sounds. absent: Tenderness, Mass, Organomegaly - Extremities Exam Extremities Exam: absent: Calf Tenderness, Pedal Edema Assessment and Plan (1) C. difficile diarrhea Assessment & Plan: Bowel movements are unchanged. Repeat stool for C. difficile was negative. 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 We will prescribe this as an outpatient. Status: Acute
[2018-05-03] MEDS: Vancomycin 125 MG/5 ML SOLN (ORAL/RECTAL) PO SCH ×4 (06:00→22:13)
[2018-05-03] MEDS: Dextrose 5%/0.9% NS 1,000 ML IV SCH ×2 (07:57→18:59)
--- NOTE | 2018-05-03 08:01 | CP.PCM.PN ---
Subjective - Date & Time of Evaluation Date of Evaluation: 05/03/18 Time of Evaluation: 07:56 - Subjective Subjective: Patient continues to complain of diarrhea, "all day yesterday." She denies having nausea, vomiting, abdominal pain. Objective - Vital Signs/Intake and Output Vital Signs (last 24 hours): Temp Pulse Resp BP Pulse Ox 97.8 F 97 H 20 109/62 97 05/03/18 00:00 05/03/18 00:00 05/03/18 00:00 05/03/18 00:00 05/03/18 00:00 Intake and Output: 05/03/18 05/03/18 06:59 18:59 Intake Total 1925 Balance 1925 - Medications Medications: Current Medications Acetaminophen (Tylenol 325mg Tab) 650 mg PO Q6 PRN PRN Reason: Fever >100.4 F Last Admin: 04/21/18 15:42 Dose: 650 mg Bismuth Subsalicylate (Pepto Bismol) 262 mg PO QID [facility] Last Admin: 05/02/18 22:30 Dose: 262 mg Calcium/Vitamin D (Oyster Shell Calcium/Vitamin D 500 Mg-200 Iu) 1 tab PO DAILY [facility] Last Admin: 05/02/18 10:22 Dose: 1 tab Dextrose/Sodium Chloride (Dextrose 5%/0.9% Ns 1000 Ml) 1,000 mls @ 100 mls/hr IV .Q10H [facility] Last Admin: 05/02/18 23:04 Dose: 100 mls/hr Lactobacillus Acidophilus (Bacid Acidophilus) 1 cap PO BID [facility] Last Admin: 05/02/18 18:34 Dose: 1 cap Mesalamine (Delzicol Dr) 1,600 mg PO TID [facility] Last Admin: 05/02/18 18:34 Dose: 1,600 mg Metronidazole (Flagyl) 500 mg PO Q8 [facility] Last Admin: 05/03/18 06:00 Dose: 500 mg Nortriptyline HCl (Pamelor) 25 mg PO HS [facility] Last Admin: 05/02/18 22:30 Dose: 25 mg Pantoprazole Sodium (Protonix Ec Tab) 40 mg PO DAILY [facility] Last Admin: 05/02/18 10:22 Dose: 40 mg Potassium Chloride (K-Dur 20 Meq Er Tab) 40 meq PO DAILY [facility] Last Admin: 06/21/18 10:24 Dose: Not Given Saccharomyces Boulardii (Florastor) 250 mg PO BID [facility] Last Admin: 05/02/18 18:34 Dose: 250 mg Vancomycin HCl (Vancocin (Oral Or Rectal Use)) 250 mg PO Q6H [facility] PRN Reason: Protocol Last Admin: 05/03/18 06:00 Dose: 250 mg Zolpidem Tartrate (Ambien) 5 mg PO HS PRN PRN Reason: Insomnia Last Admin: 04/25/18 22:15 Dose: 5 mg - Labs Labs: 05/02/18 07:41 05/02/18 07:41 - Constitutional Appears: No Acute Distress - Head Exam Head Exam: ATRAUMATIC, NORMOCEPHALIC - Eye Exam Eye Exam: EOMI Pupil Exam: NORMAL ACCOMODATION - Neck Exam Neck Exam: Lymphadenopathy, Thyromegaly - Respiratory Exam Respiratory Exam: NORMAL BREATHING PATTERN. absent: Rales, Rhonchi, Wheezes - Cardiovascular Exam Cardiovascular Exam: REGULAR RHYTHM, +S1, +S2. absent: Gallop, Rubs, Murmur - GI/Abdominal Exam GI & Abdominal Exam: Soft, Normal Bowel Sounds. absent: Tenderness, Mass, Organomegaly - Rectal Exam Rectal Exam: Deferred - Extremities Exam Extremities Exam: absent: Calf Tenderness, Pedal Edema Assessment and Plan (1) C. difficile diarrhea Assessment & Plan: Repeat C difficile toxin was negative. 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 Since cholestyramine has been discontinued, treatment should be directed at the collagenous colitis, for which the drug of choice is Dntocort. The pharmacy has been unable to obtain this medication. Plan is to prescribe it as an outpatient. Status: Acute
[2018-05-03 09:10] LABS: BASO # 0.1 K/uL (0.0-0.2); BASO % 1.3 % (0.0-2.0); EOS # 0.8 K/uL (0.0-0.7); EOS % 16.7 % (0.0-4.0); LYMPH # 1.9 K/uL (1.0-4.3); LYMPH % 38.3 % (20.0-40.0); MEAN CELL VOLUME 94.9 fL (81.0-99.0); MEAN CORPUSCULAR HEMOGLOBIN 32.1 pg (27.0-31.0); MEAN CORPUSCULAR HGB CONC 33.8 g/dL (33.0-37.0); MEAN PLATELET VOLUME 8.7 fL (7.2-11.7); MONO # 0.6 K/uL (0.0-0.8); NEUT # 1.6 K/uL (1.8-7.0); NEUT % 32.7 % (50.0-75.0); NRBC % 0.1 % (0.0-2.0); RBC 3.58 Mil/uL (3.80-5.20); RED CELL DISTRIBUTION WIDTH 15.2 % (11.5-14.5)
[2018-05-03 09:28] LABS: HEMOGLOBIN 11.5 g/dL (11.0-16.0)
[2018-05-03 09:31] LABS: ALB/GLOB RATIO 0.9 (1.0-2.1); ALBUMIN 2.7 g/dL (3.5-5.0); ALT/SGPT 33 U/L (9-52); BLOOD UREA NITROGEN 3 mg/dL (7-17); CALCIUM 8.1 mg/dl (8.6-10.4); GFR AFRICAN-AMERICAN > 60; GFR NON-AFRICAN AMERICAN > 60
[2018-05-03 09:38] LABS: AST/SGOT 29 U/L (14-36)
--- NOTE | 2018-05-03 10:42 | CP.PCM.PN ---
Subjective - Date & Time of Evaluation Date of Evaluation: 05/02/18 Time of Evaluation: 19:35 - Subjective Subjective: Patient complains of dizziness on standing up. She states that the bowel movements are still frequent, essentially unchanged in frequency and consistency. She denies having nausea and vomiting. Her appetite remains poor. We have been unable to obtain Entocort since it is not on formulary. Objective - Vital Signs/Intake and Output Vital Signs (last 24 hours): Temp Pulse Resp BP Pulse Ox 98.0 F 81 20 91/55 L 96 05/03/18 08:00 05/03/18 08:00 05/03/18 08:00 05/03/18 08:00 05/03/18 08:00 Intake and Output: 05/03/18 05/03/18 06:59 18:59 Intake Total 1925 Balance 1925 - Medications Medications: Current Medications Acetaminophen (Tylenol 325mg Tab) 650 mg PO Q6 PRN PRN Reason: Fever >100.4 F Last Admin: 04/21/18 15:42 Dose: 650 mg Bismuth Subsalicylate (Pepto Bismol) 524 mg PO QID [facility] Calcium/Vitamin D (Oyster Shell Calcium/Vitamin D 500 Mg-200 Iu) 1 tab PO DAILY [facility] Last Admin: 05/02/18 10:22 Dose: 1 tab Dextrose/Sodium Chloride (Dextrose 5%/0.9% Ns 1000 Ml) 1,000 mls @ 100 mls/hr IV .Q10H [facility] Last Admin: 05/03/18 07:57 Dose: 100 mls/hr Lactobacillus Acidophilus (Bacid Acidophilus) 1 cap PO BID [facility] Last Admin: 05/02/18 18:34 Dose: 1 cap Loperamide HCl (Imodium) 1 mg PO QID PRN PRN Reason: Diarrhea Mesalamine (Delzicol Dr) 1,600 mg PO TID [facility] Last Admin: 05/02/18 18:34 Dose: 1,600 mg Metronidazole (Flagyl) 500 mg PO Q8 [facility] Last Admin: 05/03/18 06:00 Dose: 500 mg Nortriptyline HCl (Pamelor) 25 mg PO HS [facility] Last Admin: 05/02/18 22:30 Dose: 25 mg Pantoprazole Sodium (Protonix Ec Tab) 40 mg PO DAILY [facility] Last Admin: 05/02/18 10:22 Dose: 40 mg Potassium Chloride (K-Dur 20 Meq Er Tab) 40 meq PO DAILY [facility] Last Admin: 05/02/18 10:24 Dose: Not Given Saccharomyces Boulardii (Florastor) 250 mg PO BID [facility] Last Admin: 05/02/18 18:34 Dose: 250 mg Vancomycin HCl (Vancocin (Oral Or Rectal Use)) 250 mg PO Q6H [facility] PRN Reason: Protocol Last Admin: 05/03/18 06:00 Dose: 250 mg Zolpidem Tartrate (Ambien) 5 mg PO HS PRN PRN Reason: Insomnia Last Admin: 04/25/18 22:15 Dose: 5 mg - Labs Labs: 05/03/18 08:57 05/03/18 08:57 Assessment and Plan (1) C. difficile diarrhea Status: Acute (2) Diarrhea Status: Acute (3) Ulcerative colitis, chronic Status: Chronic
[2018-05-03] MEDS: Pantoprazole 40 mg EC Tab PO SCH (10:46)
[2018-05-03] MEDS: Calcium-Vit D 500 mg-200 Units Tab UD PO SCH (10:46)
[2018-05-03] MEDS: Lactobacillus Acidophilus 500 MU Cap PO SCH ×2 (10:46→17:49)
[2018-05-03] MEDS: Saccharomyces Boulardi 250 mg Cap PO SCH ×2 (10:46→17:48)
[2018-05-03] MEDS: Bismuth Subsalicylate 262 mg Chew Tab PO SCH ×4 (10:50→21:27)
[2018-05-03] MEDS: Potassium Chloride 20 mEq ER Tab PO SCH (10:50)
--- NOTE | 2018-05-03 18:11 | CP.PCM.PN ---
Subjective - Date & Time of Evaluation Date of Evaluation: 05/03/18 Time of Evaluation: 19:00 - Subjective Subjective: Pt seen and examined at bedside Objective - Vital Signs/Intake and Output Vital Signs (last 24 hours): Temp Pulse Resp BP Pulse Ox 98 F 80 18 100/63 95 05/03/18 15:35 05/03/18 15:35 05/03/18 15:35 05/03/18 15:35 05/03/18 15:35 Intake and Output: 05/03/18 05/03/18 06:59 18:59 Intake Total 1925 1440 Balance 1925 1440 - Medications Medications: Current Medications Acetaminophen (Tylenol 325mg Tab) 650 mg PO Q6 PRN PRN Reason: Fever >100.4 F Last Admin: 04/21/18 15:42 Dose: 650 mg Bismuth Subsalicylate (Pepto Bismol) 524 mg PO QID [facility] Last Admin: 05/03/18 17:49 Dose: 524 mg Calcium/Vitamin D (Oyster Shell Calcium/Vitamin D 500 Mg-200 Iu) 1 tab PO DAILY [facility] Last Admin: 05/03/18 10:46 Dose: 1 tab Dextrose/Sodium Chloride (Dextrose 5%/0.9% Ns 1000 Ml) 1,000 mls @ 100 mls/hr IV .Q10H [facility] Last Admin: 05/03/18 07:57 Dose: 100 mls/hr Lactobacillus Acidophilus (Bacid Acidophilus) 1 cap PO BID [facility] Last Admin: 05/03/18 17:49 Dose: 1 cap Loperamide HCl (Imodium) 1 mg PO QID PRN PRN Reason: Diarrhea Mesalamine (Delzicol Dr) 1,600 mg PO TID [facility] Last Admin: 05/03/18 17:48 Dose: 1,600 mg Metronidazole (Flagyl) 500 mg PO Q8 [facility] Last Admin: 05/03/18 13:16 Dose: 500 mg Nortriptyline HCl (Pamelor) 25 mg PO HS [facility] Last Admin: 05/02/18 22:30 Dose: 25 mg Pantoprazole Sodium (Protonix Ec Tab) 40 mg PO DAILY [facility] Last Admin: 05/03/18 10:46 Dose: 40 mg Potassium Chloride (K-Dur 20 Meq Er Tab) 40 meq PO DAILY [facility] Last Admin: 05/03/18 10:50 Dose: 40 meq Saccharomyces Boulardii (Florastor) 250 mg PO BID [facility] Last Admin: 05/03/18 17:48 Dose: 250 mg Vancomycin HCl (Vancocin (Oral Or Rectal Use)) 250 mg PO Q6H [facility] PRN Reason: Protocol Last Admin: 05/03/18 17:49 Dose: 250 mg Zolpidem Tartrate (Ambien) 5 mg PO HS PRN PRN Reason: Insomnia Last Admin: 04/25/18 22:15 Dose: 5 mg - Labs Labs: 05/03/18 08:57 05/03/18 08:57 Assessment and Plan (1) C. difficile diarrhea Status: Acute (2) Diarrhea Status: Acute (3) Ulcerative colitis, chronic Status: Chronic
--- NOTE | 2018-05-03 19:13 | CP.PCM.PN ---
Subjective - Date & Time of Evaluation Date of Evaluation: 05/03/18 Time of Evaluation: 08:00 - Subjective Subjective: afeb alert nad less diarrhea Objective - Vital Signs/Intake and Output Vital Signs (last 24 hours): Temp Pulse Resp BP Pulse Ox 98 F 80 18 100/63 95 05/03/18 15:35 05/03/18 15:35 05/03/18 15:35 05/03/18 15:35 05/03/18 15:35 Intake and Output: 05/03/18 05/04/18 18:59 06:59 Intake Total 1440 Balance 1440 - Medications Medications: Current Medications Acetaminophen (Tylenol 325mg Tab) 650 mg PO Q6 PRN PRN Reason: Fever >100.4 F Last Admin: 04/21/18 15:42 Dose: 650 mg Bismuth Subsalicylate (Pepto Bismol) 524 mg PO QID [facility] Last Admin: 05/03/18 17:49 Dose: 524 mg Calcium/Vitamin D (Oyster Shell Calcium/Vitamin D 500 Mg-200 Iu) 1 tab PO DAILY [facility] Last Admin: 05/03/18 10:46 Dose: 1 tab Dextrose/Sodium Chloride (Dextrose 5%/0.9% Ns 1000 Ml) 1,000 mls @ 100 mls/hr IV .Q10H [facility] Last Admin: 05/03/18 18:59 Dose: 100 mls/hr Lactobacillus Acidophilus (Bacid Acidophilus) 1 cap PO BID [facility] Last Admin: 05/03/18 17:49 Dose: 1 cap Loperamide HCl (Imodium) 1 mg PO QID PRN PRN Reason: Diarrhea Mesalamine (Delzicol Dr) 1,600 mg PO TID [facility] Last Admin: 05/03/18 17:48 Dose: 1,600 mg Metronidazole (Flagyl) 500 mg PO Q8 [facility] Last Admin: 05/03/18 13:16 Dose: 500 mg Nortriptyline HCl (Pamelor) 25 mg PO HS [facility] Last Admin: 05/02/18 22:30 Dose: 25 mg Pantoprazole Sodium (Protonix Ec Tab) 40 mg PO DAILY [facility] Last Admin: 05/03/18 10:46 Dose: 40 mg Potassium Chloride (K-Dur 20 Meq Er Tab) 40 meq PO DAILY [facility] Last Admin: 05/03/18 10:50 Dose: 40 meq Saccharomyces Boulardii (Florastor) 250 mg PO BID [facility] Last Admin: 05/03/18 17:48 Dose: 250 mg Vancomycin HCl (Vancocin (Oral Or Rectal Use)) 250 mg PO Q6H [facility] PRN Reason: Protocol Last Admin: 05/03/18 17:49 Dose: 250 mg Zolpidem Tartrate (Ambien) 5 mg PO HS PRN PRN Reason: Insomnia Last Admin: 04/25/18 22:15 Dose: 5 mg - Labs Labs: 05/03/18 08:57 05/03/18 08:57 - Constitutional Appears: Non-toxic, Cachectic, Chronically Ill - Head Exam Head Exam: NORMOCEPHALIC - Eye Exam Eye Exam: PERRL - ENT Exam ENT Exam: Mucous Membranes Dry - Neck Exam Neck Exam: absent: Lymphadenopathy - Respiratory Exam Respiratory Exam: Decreased Breath Sounds - Cardiovascular Exam Cardiovascular Exam: REGULAR RHYTHM - GI/Abdominal Exam GI & Abdominal Exam: Distended, Soft - Rectal Exam Rectal Exam: Deferred - Exam Exam: NORMAL INSPECTION Assessment and Plan (1) Bloody diarrhea Status: Acute (2) Colitis Status: Acute - Assessment and Plan (Free Text) Assessment: cont rx as per Dr Lemus
[2018-05-03 22:52] VITALS: RESP 20
[2018-05-04] MEDS: Potassium Chloride 20 mEq/15 ml LIQ UD PO SCH ×2 (00:35→05:05)
[2018-05-04] MEDS: Vancomycin 125 MG/5 ML SOLN (ORAL/RECTAL) PO SCH ×4 (05:08→22:38)
[2018-05-04] MEDS: Dextrose 5%/0.9% NS 1,000 ML IV SCH ×3 (05:08→22:26)
[2018-05-04 07:57] LABS: BASO # 0.1 K/uL (0.0-0.2); BASO % 1.6 % (0.0-2.0); EOS # 0.7 K/uL (0.0-0.7); EOS % 15.3 % (0.0-4.0); HEMOGLOBIN 12.9 g/dL (11.0-16.0); LYMPH # 1.9 K/uL (1.0-4.3); LYMPH % 40.9 % (20.0-40.0); MEAN CELL VOLUME 96.8 fL (81.0-99.0); MEAN CORPUSCULAR HEMOGLOBIN 31.6 pg (27.0-31.0); MEAN CORPUSCULAR HGB CONC 32.6 g/dL (33.0-37.0); MONO # 0.5 K/uL (0.0-0.8); MONO % 11.1 % (0.0-10.0); NEUT # 1.4 K/uL (1.8-7.0); NEUT % 31.1 % (50.0-75.0); NRBC % 0.1 % (0.0-2.0); RBC 4.08 Mil/uL (3.80-5.20); RED CELL DISTRIBUTION WIDTH 15.5 % (11.5-14.5); WHITE BLOOD COUNT 4.6 K/uL (4.8-10.8)
[2018-05-04 08:09] LABS: ALBUMIN 2.9 g/dL (3.5-5.0); ALT/SGPT 29 U/L (9-52); AST/SGOT 19 U/L (14-36); BLOOD UREA NITROGEN < 2 mg/dL (7-17); CALCIUM 8.3 mg/dl (8.6-10.4); GFR AFRICAN-AMERICAN > 60; GFR NON-AFRICAN AMERICAN > 60
[2018-05-04] MEDS: Potassium Chloride 20 mEq ER Tab PO SCH (09:25)
[2018-05-04] MEDS: Saccharomyces Boulardi 250 mg Cap PO SCH ×2 (09:25→17:24)
[2018-05-04] MEDS: Calcium-Vit D 500 mg-200 Units Tab UD PO SCH (09:26)
[2018-05-04] MEDS: Pantoprazole 40 mg EC Tab PO SCH (09:26)
[2018-05-04] MEDS: Lactobacillus Acidophilus 500 MU Cap PO SCH ×2 (09:26→17:27)
[2018-05-04] MEDS: Bismuth Subsalicylate 262 mg Chew Tab PO SCH ×4 (09:26→21:35)
--- NOTE | 2018-05-04 14:21 | CP.PCM.PN ---
Subjective - Date & Time of Evaluation Date of Evaluation: 05/04/18 Time of Evaluation: 14:18 - Subjective Subjective: COVERING DR CLARK; Patient reports persistent watery stools. No pain, N/V. Objective - Vital Signs/Intake and Output Vital Signs (last 24 hours): Temp Pulse Resp BP Pulse Ox 97.9 F 85 20 111/72 97 05/04/18 09:44 05/04/18 09:44 05/04/18 09:44 05/04/18 09:44 05/04/18 09:44 Intake and Output: 05/04/18 05/04/18 06:59 18:59 Intake Total 2150 Balance 2150 - Medications Medications: Current Medications Acetaminophen (Tylenol 325mg Tab) 650 mg PO Q6 PRN PRN Reason: Fever >100.4 F Last Admin: 04/21/18 15:42 Dose: 650 mg Bismuth Subsalicylate (Pepto Bismol) 524 mg PO QID [facility] Last Admin: 05/04/18 13:50 Dose: 524 mg Calcium/Vitamin D (Oyster Shell Calcium/Vitamin D 500 Mg-200 Iu) 1 tab PO DAILY [facility] Last Admin: 05/04/18 09:26 Dose: 1 tab Dextrose/Sodium Chloride (Dextrose 5%/0.9% Ns 1000 Ml) 1,000 mls @ 100 mls/hr IV .Q10H [facility] Last Admin: 05/04/18 13:52 Dose: 100 mls/hr Lactobacillus Acidophilus (Bacid Acidophilus) 1 cap PO BID [facility] Last Admin: 05/04/18 09:26 Dose: 1 cap Loperamide HCl (Imodium) 1 mg PO QID PRN PRN Reason: Diarrhea Last Admin: 05/04/18 09:26 Dose: 1 mg Mesalamine (Delzicol Dr) 1,600 mg PO TID [facility] Last Admin: 05/04/18 13:50 Dose: 1,600 mg Metronidazole (Flagyl) 500 mg PO Q8 [facility] Last Admin: 05/04/18 13:50 Dose: 500 mg Nortriptyline HCl (Pamelor) 25 mg PO HS [facility] Last Admin: 05/03/18 21:27 Dose: 25 mg Pantoprazole Sodium (Protonix Ec Tab) 40 mg PO DAILY [facility] Last Admin: 05/04/18 09:26 Dose: 40 mg Potassium Chloride (K-Dur 20 Meq Er Tab) 40 meq PO DAILY [facility] Last Admin: 05/04/18 09:25 Dose: 40 meq Saccharomyces Boulardii (Florastor) 250 mg PO BID [facility] Last Admin: 05/04/18 09:25 Dose: 250 mg Vancomycin HCl (Vancocin (Oral Or Rectal Use)) 250 mg PO Q6H [facility] PRN Reason: Protocol Last Admin: 05/04/18 11:57 Dose: 250 mg Zolpidem Tartrate (Ambien) 5 mg PO HS PRN PRN Reason: Insomnia Last Admin: 04/25/18 22:15 Dose: 5 mg - Labs Labs: 05/04/18 07:38 05/04/18 07:38 - Constitutional Appears: No Acute Distress - Head Exam Head Exam: ATRAUMATIC, NORMOCEPHALIC - Respiratory Exam Respiratory Exam: NORMAL BREATHING PATTERN - Cardiovascular Exam Cardiovascular Exam: REGULAR RHYTHM, +S1 - GI/Abdominal Exam GI & Abdominal Exam: Soft, Hyperactive Bowel Sounds. absent: Distended, Guarding, Tenderness, Mass, Rebound - Rectal Exam Rectal Exam: Deferred - Extremities Exam Extremities Exam: Normal Inspection Assessment and Plan (1) Collagenous colitis Assessment & Plan: Patient with persistent diarrhea and now cholestyramine has been stopped. Awaiting Entocort (budesonide) for treatment of her CC. Has been unavailable from pharmacy. Plan to initiate as out patient. Perhaps is can be filled by an out patient pharmacy and brought to hospital if she is not going to be discharged? Plans per Dr Clark. Status: Acute (2) C. difficile diarrhea Assessment & Plan: C diff now negative. Status: Acute
--- NOTE | 2018-05-04 17:23 | CP.PCM.PN ---
Objective - Vital Signs/Intake and Output Vital Signs (last 24 hours): Temp Pulse Resp BP Pulse Ox 98.0 F 85 20 119/76 97 05/04/18 16:31 05/04/18 16:31 05/04/18 16:31 05/04/18 16:31 05/04/18 16:31 Intake and Output: 05/04/18 05/04/18 06:59 18:59 Intake Total 2150 1200 Balance 2150 1200 - Medications Medications: Current Medications Acetaminophen (Tylenol 325mg Tab) 650 mg PO Q6 PRN PRN Reason: Fever >100.4 F Last Admin: 04/21/18 15:42 Dose: 650 mg Bismuth Subsalicylate (Pepto Bismol) 524 mg PO QID [facility] Last Admin: 05/04/18 13:50 Dose: 524 mg Calcium/Vitamin D (Oyster Shell Calcium/Vitamin D 500 Mg-200 Iu) 1 tab PO DAILY [facility] Last Admin: 05/04/18 09:26 Dose: 1 tab Dextrose/Sodium Chloride (Dextrose 5%/0.9% Ns 1000 Ml) 1,000 mls @ 100 mls/hr IV .Q10H [facility] Last Admin: 05/04/18 13:52 Dose: 100 mls/hr Lactobacillus Acidophilus (Bacid Acidophilus) 1 cap PO BID [facility] Last Admin: 05/04/18 09:26 Dose: 1 cap Loperamide HCl (Imodium) 1 mg PO QID PRN PRN Reason: Diarrhea Last Admin: 05/04/18 09:26 Dose: 1 mg Mesalamine (Delzicol Dr) 1,600 mg PO TID [facility] Last Admin: 05/04/18 13:50 Dose: 1,600 mg Metronidazole (Flagyl) 500 mg PO Q8 [facility] Last Admin: 05/04/18 13:50 Dose: 500 mg Nortriptyline HCl (Pamelor) 25 mg PO HS [facility] Last Admin: 05/03/18 21:27 Dose: 25 mg Pantoprazole Sodium (Protonix Ec Tab) 40 mg PO DAILY [facility] Last Admin: 05/04/18 09:26 Dose: 40 mg Potassium Chloride (K-Dur 20 Meq Er Tab) 40 meq PO DAILY [facility] Last Admin: 05/04/18 09:25 Dose: 40 meq Saccharomyces Boulardii (Florastor) 250 mg PO BID [facility] Last Admin: 05/04/18 09:25 Dose: 250 mg Vancomycin HCl (Vancocin (Oral Or Rectal Use)) 250 mg PO Q6H [facility] PRN Reason: Protocol Last Admin: 05/04/18 11:57 Dose: 250 mg Zolpidem Tartrate (Ambien) 5 mg PO HS PRN PRN Reason: Insomnia Last Admin: 04/25/18 22:15 Dose: 5 mg - Labs Labs: 05/04/18 07:38 05/04/18 07:38 Assessment and Plan (1) C. difficile diarrhea Status: Acute (2) Diarrhea Status: Acute (3) Ulcerative colitis, chronic Status: Chronic
--- NOTE | 2018-05-04 18:02 | CP.PCM.PN ---
Subjective - Date & Time of Evaluation Date of Evaluation: 05/04/18 Time of Evaluation: 11:35 - Subjective Subjective: Patien t seen today, denies any chest pain, sob, abdominal pain, reported 3 watery stool states wants to go home a febrile Objective - Vital Signs/Intake and Output Vital Signs (last 24 hours): Temp Pulse Resp BP Pulse Ox 98.0 F 85 20 119/76 97 05/04/18 16:31 05/04/18 16:31 05/04/18 16:31 05/04/18 16:31 05/04/18 16:31 Intake and Output: 05/04/18 05/04/18 06:59 18:59 Intake Total 2150 1200 Balance 2150 1200 - Medications Medications: Current Medications Acetaminophen (Tylenol 325mg Tab) 650 mg PO Q6 PRN PRN Reason: Fever >100.4 F Last Admin: 04/21/18 15:42 Dose: 650 mg Bismuth Subsalicylate (Pepto Bismol) 524 mg PO QID [facility] Last Admin: 05/04/18 17:26 Dose: 524 mg Calcium/Vitamin D (Oyster Shell Calcium/Vitamin D 500 Mg-200 Iu) 1 tab PO DAILY [facility] Last Admin: 05/04/18 09:26 Dose: 1 tab Dextrose/Sodium Chloride (Dextrose 5%/0.9% Ns 1000 Ml) 1,000 mls @ 100 mls/hr IV .Q10H [facility] Last Admin: 05/04/18 13:52 Dose: 100 mls/hr Lactobacillus Acidophilus (Bacid Acidophilus) 1 cap PO BID [facility] Last Admin: 05/04/18 17:27 Dose: 1 cap Loperamide HCl (Imodium) 1 mg PO QID PRN PRN Reason: Diarrhea Last Admin: 05/04/18 17:24 Dose: 1 mg Mesalamine (Delzicol Dr) 1,600 mg PO TID [facility] Last Admin: 05/04/18 17:26 Dose: 1,600 mg Metronidazole (Flagyl) 500 mg PO Q8 [facility] Last Admin: 05/04/18 13:50 Dose: 500 mg Nortriptyline HCl (Pamelor) 25 mg PO HS [facility] Last Admin: 05/03/18 21:27 Dose: 25 mg Pantoprazole Sodium (Protonix Ec Tab) 40 mg PO DAILY [facility] Last Admin: 05/04/18 09:26 Dose: 40 mg Potassium Chloride (K-Dur 20 Meq Er Tab) 40 meq PO DAILY [facility] Last Admin: 05/04/18 09:25 Dose: 40 meq Saccharomyces Boulardii (Florastor) 250 mg PO BID [facility] Last Admin: 05/04/18 17:24 Dose: 250 mg Vancomycin HCl (Vancocin (Oral Or Rectal Use)) 250 mg PO Q6H [facility] PRN Reason: Protocol Last Admin: 05/04/18 17:28 Dose: 250 mg Zolpidem Tartrate (Ambien) 5 mg PO HS PRN PRN Reason: Insomnia Last Admin: 04/25/18 22:15 Dose: 5 mg - Labs Labs: 05/04/18 07:38 05/04/18 07:38 Assessment and Plan - Assessment and Plan (Free Text) Assessment: 77 y/o female, with a Hx of ulcerative colitis, admitted with generalized weakness, diarrhea, and fever for one week c- dif .+ and treated with vanco repeat c- dif negative pt has collagenous colitis and needs Entocort treat ment as out patient
[2018-05-05] MEDS: Vancomycin 125 MG/5 ML SOLN (ORAL/RECTAL) PO SCH ×2 (05:20→10:33)
[2018-05-05] MEDS: Dextrose 5%/0.9% NS 1,000 ML IV SCH (08:21)
[2018-05-05 08:46] VITALS: BP 127/76; PULSE 83; TEMP 97.5; O2SAT 98
[2018-05-05] MEDS: Pantoprazole 40 mg EC Tab PO SCH (10:32)
[2018-05-05] MEDS: Lactobacillus Acidophilus 500 MU Cap PO SCH (10:32)
[2018-05-05] MEDS: Saccharomyces Boulardi 250 mg Cap PO SCH (10:32)
[2018-05-05] MEDS: Calcium-Vit D 500 mg-200 Units Tab UD PO SCH (10:32)
[2018-05-05] MEDS: Bismuth Subsalicylate 262 mg Chew Tab PO SCH (10:33)
[2018-05-05] MEDS: Potassium Chloride 20 mEq ER Tab PO SCH (10:33)
--- NOTE | 2018-05-05 10:51 | CP.PCM.PN ---
Subjective - Date & Time of Evaluation Date of Evaluation: 05/05/18 Time of Evaluation: 10:50 - Subjective Subjective: COVERING DR STOАННАCK Still with watery stools 4-5 last 24 hours No bleeding Objective - Vital Signs/Intake and Output Vital Signs (last 24 hours): Temp Pulse Resp BP Pulse Ox 97.5 F L 83 20 127/76 98 05/05/18 08:00 05/05/18 08:00 05/05/18 08:00 05/05/18 08:00 05/05/18 08:00 Intake and Output: 05/05/18 05/05/18 06:59 18:59 Intake Total 1200 300 Balance 1200 300 - Medications Medications: Current Medications Acetaminophen (Tylenol 325mg Tab) 650 mg PO Q6 PRN PRN Reason: Fever >100.4 F Last Admin: 04/21/18 15:42 Dose: 650 mg Bismuth Subsalicylate (Pepto Bismol) 524 mg PO QID [facility] Last Admin: 05/05/18 10:33 Dose: 524 mg Calcium/Vitamin D (Oyster Shell Calcium/Vitamin D 500 Mg-200 Iu) 1 tab PO DAILY [facility] Last Admin: 05/05/18 10:32 Dose: 1 tab Dextrose/Sodium Chloride (Dextrose 5%/0.9% Ns 1000 Ml) 1,000 mls @ 100 mls/hr IV .Q10H [facility] Last Admin: 05/05/18 08:21 Dose: 100 mls/hr Lactobacillus Acidophilus (Bacid Acidophilus) 1 cap PO BID [facility] Last Admin: 05/05/18 10:32 Dose: 1 cap Loperamide HCl (Imodium) 1 mg PO QID PRN PRN Reason: Diarrhea Last Admin: 05/04/18 17:24 Dose: 1 mg Mesalamine (Delzicol Dr) 1,600 mg PO TID [facility] Last Admin: 05/05/18 10:33 Dose: 1,600 mg Metronidazole (Flagyl) 500 mg PO Q8 [facility] Last Admin: 05/05/18 05:20 Dose: 500 mg Nortriptyline HCl (Pamelor) 25 mg PO HS [facility] Last Admin: 05/04/18 21:35 Dose: 25 mg Pantoprazole Sodium (Protonix Ec Tab) 40 mg PO DAILY [facility] Last Admin: 05/05/18 10:32 Dose: 40 mg Potassium Chloride (K-Dur 20 Meq Er Tab) 40 meq PO DAILY [facility] Last Admin: 05/05/18 10:33 Dose: 40 meq Saccharomyces Boulardii (Florastor) 250 mg PO BID [facility] Last Admin: 05/05/18 10:32 Dose: 250 mg Vancomycin HCl (Vancocin (Oral Or Rectal Use)) 250 mg PO Q6H [facility] PRN Reason: Protocol Last Admin: 05/05/18 10:33 Dose: 250 mg Zolpidem Tartrate (Ambien) 5 mg PO HS PRN PRN Reason: Insomnia Last Admin: 04/25/18 22:15 Dose: 5 mg - Labs Labs: 05/04/18 07:38 05/04/18 07:38 - Constitutional Appears: No Acute Distress - Head Exam Head Exam: ATRAUMATIC, NORMOCEPHALIC - Respiratory Exam Respiratory Exam: Clear to Ausculation Bilateral, NORMAL BREATHING PATTERN - Cardiovascular Exam Cardiovascular Exam: REGULAR RHYTHM - GI/Abdominal Exam GI & Abdominal Exam: Soft, Normal Bowel Sounds. absent: Distended, Tenderness, Mass Assessment and Plan (1) Collagenous colitis Assessment & Plan: Awaiting Entocort treatment when available or as out patient. Status: Acute (2) C. difficile diarrhea Assessment & Plan: Resolved Status: Resolved
--- NOTE | 2018-05-05 22:50 | CP.PCM.DIS ---
Provider - Provider Date of Admission: 04/20/18 17:47 Attending physician: Brenton Shaw MD Time Spent in preparation of Discharge (in minutes): 45 Diagnosis - Discharge Diagnosis (1) C. difficile diarrhea Status: Resolved (2) Diarrhea Status: Acute Priority: High (3) Ulcerative colitis, chronic Status: Chronic Priority: High Hospital Course - Lab Results Lab Results: Micro Results 04/24/18 17:58 Stool Stool Culture - Final NO SALMONELLA, SHIGELLA OR CAMPYLOBACTER ISOLATED. 04/20/18 13:05 Blood Blood Culture - Final NO GROWTH AFTER 5 DAYS 04/20/18 13:05 Blood Gram Stain - Final TEST NOT PERFORMED 04/20/18 12:35 Blood Blood Culture - Final NO GROWTH AFTER 5 DAYS 04/20/18 12:35 Blood Gram Stain - Final TEST NOT PERFORMED 04/24/18 17:58 Stool Ova and Parasite Concentrate Exam - Final 04/20/18 14:02 Stool Ova and Parasite Concentrate Exam - Final 04/20/18 21:16 Stool Stool Culture - Final NO SALMONELLA, SHIGELLA OR CAMPYLOBACTER ISOLATED. 04/20/18 21:31 Urine Urine Culture - Final 10-50,000 CFU/ML. MULTIPLE SPECIES. PROBABLE CONTAMINATION. Most Recent Lab Values WBC 4.6 K/uL (4.8-10.8) L 05/04/18 07:38 RBC 4.08 Mil/uL (3.80-5.20) 05/04/18 07:38 Hgb 12.9 g/dL (11.0-16.0) 05/04/18 07:38 Hct 39.5 % (34.0-47.0) 05/04/18 07:38 MCV 96.8 fL (81.0-99.0) 05/04/18 07:38 MCH 31.6 pg (27.0-31.0) H 05/04/18 07:38 MCHC 32.6 g/dL (33.0-37.0) L 05/04/18 07:38 RDW 15.5 % (11.5-14.5) H 05/04/18 07:38 Plt Count 219 K/uL (130-400) 05/04/18 07:38 MPV 9.0 fL (7.2-11.7) 05/04/18 07:38 Neut % (Auto) 31.1 % (50.0-75.0) L 05/04/18 07:38 Lymph % (Auto) 40.9 % (20.0-40.0) H 05/04/18 07:38 [place] % (Auto) 11.1 % (0.0-10.0) H 05/04/18 07:38 Eos % (Auto) 15.3 % (0.0-4.0) H 05/04/18 07:38 Baso % (Auto) 1.6 % (0.0-2.0) 05/04/18 07:38 Neut # (Auto) 1.4 K/uL (1.8-7.0) L 05/04/18 07:38 Lymph # (Auto) 1.9 K/uL (1.0-4.3) 05/04/18 07:38 [place] # (Auto) 0.5 K/uL (0.0-0.8) 05/04/18 07:38 Eos # (Auto) 0.7 K/uL (0.0-0.7) 05/04/18 07:38 Baso # (Auto) 0.1 K/uL (0.0-0.2) 05/04/18 07:38 Neutrophils % (Manual) 42 % (50-75) L 05/01/18 08:00 Band Neutrophils % 1 % (0-2) 04/30/18 07:32 Lymphocytes % (Manual) 28 % (20-40) 05/01/18 08:00 Monocytes % (Manual) 9 % (0-10) 05/01/18 08:00 Eosinophils % (Manual) 20 % (0-4) H 05/01/18 08:00 Basophils % (Manual) 1 % (0-2) 05/01/18 08:00 Platelet Estimate Normal (NORMAL) 05/01/18 08:00 Polychromasia Slight 04/20/18 12:44 Hypochromasia (manual) Slight 04/20/18 12:44 Poikilocytosis (manual Slight 05/01/18 08:00 Anisocytosis (manual) Slight 05/01/18 08:00 Ovalocytes Slight 04/20/18 12:44 Sodium 139 mmol/L (132-148) 05/04/18 07:38 Potassium 4.4 mmol/L (3.6-5.2) 05/04/18 07:38 Chloride 106 mmol/L (98-107) 05/04/18 07:38 Carbon Dioxide 24 mmol/L (22-30) 05/04/18 07:38 Anion Gap 13 (10-20) 05/04/18 07:38 BUN < 2 mg/dL (7-17) L 05/04/18 07:38 Creatinine 0.5 mg/dL (0.7-1.2) L 05/04/18 07:38 Est GFR ( Amer) > 60 05/04/18 07:38 Est GFR (Non-Af Amer) > 60 05/04/18 07:38 POC Glucose (mg/dL) 82 mg/dL (65-110) 05/01/18 17:48 Random Glucose 104 mg/dL (65-105) 05/04/18 07:38 Calcium 8.3 mg/dl (8.6-10.4) L 05/04/18 07:38 Phosphorus 3.2 mg/dL (2.5-4.5) 04/27/18 07:30 Magnesium 1.6 mg/dL (1.6-2.3) 04/27/18 07:30 Total Bilirubin 0.5 mg/dL (0.2-1.3) 05/04/18 07:38 AST 19 U/L (14-36) 05/04/18 07:38 ALT 29 U/L (9-52) 05/04/18 07:38 Alkaline Phosphatase 127 U/L (38-126) H 05/04/18 07:38 Total Creatine Kinase 242 U/L (30-135) H 04/20/18 12:44 Troponin I < 0.0120 ng/mL (0.00-0.120) 04/20/18 12:44 C-Reactive Protein 13.40 mg/L (0.0-9.9) H 04/29/18 11:15 NT-Pro-B Natriuret Pep 795 pg/mL (0-900) 04/20/18 12:44 Total Protein 5.8 g/dL (6.3-8.3) L 05/04/18 07:38 Albumin 2.9 g/dL (3.5-5.0) L 05/04/18 07:38 Globulin 2.9 gm/dL (2.2-3.9) 05/04/18 07:38 Albumin/Globulin Ratio 1.0 (1.0-2.1) 05/04/18 07:38 Carcinoembryonic Ag 1.0 ng/mL (0-3.0) 04/21/18 06:38 Urine Color Yellow (YELLOW) 04/20/18 21:31 Urine Clarity Hazy (Clear) 04/20/18 21:31 Urine pH 5.0 (5.0-8.0) 04/20/18 21:31 Ur Specific [place] 1.025 (1.003-1.030) 04/20/18 21:31 Urine Protein Negative mg/dL (NEGATIVE) 04/20/18 21:31 Urine Glucose (UA) Normal mg/dL (Normal) 04/20/18 21:31 Urine Ketones Trace mg/dL (NEGATIVE) 04/20/18 21:31 Urine Blood 1+ (NEGATIVE) H 04/20/18 21:31 Urine Nitrate Negative (NEGATIVE) 04/20/18 21:31 Urine Bilirubin Negative (NEGATIVE) 04/20/18 21:31 Urine Urobilinogen Normal mg/dL (0.2-1.0) 04/20/18 21:31 Ur Leukocyte Esterase 1+ Hazel/uL (Negative) H 04/20/18 21:31 Urine WBC (Auto) 4 /hpf (0-5) 04/20/18 21:31 Urine RBC (Auto) 2 /hpf (0-3) 04/20/18 21:31 Ur Squamous Epith Cells 1 /hpf (0-5) 04/20/18 21:31 Stool Leukocytes, Qual Positive (NEGATIVE) H 04/24/18 16:38 Stool Calprotectin 667.0 mcg/g (< OR = 162.9) H 04/24/18 17:58 Absolute Lymphs (Flow) 2317 Cells/mcL (850-3900) 04/27/18 07:30 % CD4 Cells 69 Percent (30-61) H 04/27/18 07:30 Absolute CD4 Count 1592 Cells/mcL (490-1740) 04/27/18 07:30 T-Help/Suppress Ratio 5.54 Ratio (0.86-5.00) H 04/27/18 07:30 % CD8 Cells 12 Percent (12-42) 04/27/18 07:30 Absolute CD8 Count 287 Cells/mcL (180-1170) 04/27/18 07:30 C. difficile Ag & Toxin Negative (NEGATIVE) 05/01/18 22:21 Giardia Antigen Not detected (Not Detected) 04/25/18 18:23 HIV 1&2 Antibody Screen Negative (NEGATIVE) 04/27/18 07:30 - Hospital Course Hospital Course: 77 y/o female, with a Hx of ulcerative colitis, admitted with generalized weakness, diarrhea, and fever for one week c- dif .+ and treated with vanco repeat c- dif negative pt has collagenous colitis and needs Entocort treatment as out patient Discharge Exam - Head Exam Head Exam: ATRAUMATIC, NORMOCEPHALIC Discharge Plan - Discharge Medications Prescriptions: Loperamide [Imodium] 2 mg PO Q6 PRN 30 Days #30 cap PRN Reason: Diarrhea Potassium Chloride [K-Dur 20 mEq ER Tab] 20 meq PO DAILY #10 tab - Follow Up Plan Condition: FAIR Disposition: HOME/ ROUTINE Instructions: Hypokalemia (DC), Fever, Adult (DC), Budesonide (Systemic), Clostridium Difficile Infection (DC) Additional Instructions: Please f/u with Dr. Lemus office on Sunday - call and make appointment or call Dr. Lemus office for prescription for Endocort Resume all home medications PLEASE PODIATRIC PHYSICIAN MEDICATION FROM YOUR PHARMACY Referrals: Brenton Shaw MD [Staff Provider] - Mandeep Summers MD [Staff Provider] - Cullen Paiz Jr., MD [Staff Provider] - Joaquin Lemus MD [Staff Provider] -
== END 2018-05-05 11:34 | disposition home or self-care (01) | DRG 372 ==
LOC: C.ER 11:52 → C.9E 17:47 → C.5S 23:59 → C.3T 05-03 22:29
PROVIDERS: ADMIT Internal Medicine; ATTEND Internal Medicine
PROC: 0DBL8ZX Excision of Transverse Colon, Via Natural or Artificial Opening Endoscopic, Diagnostic (ICD-10-PCS; 2018-04-25)
PROC: 0DBN8ZX Excision of Sigmoid Colon, Via Natural or Artificial Opening Endoscopic, Diagnostic (ICD-10-PCS; 2018-04-25)
PROC: 0DBP8ZX Excision of Rectum, Via Natural or Artificial Opening Endoscopic, Diagnostic (ICD-10-PCS; 2018-04-25)
PROC: 0DBM8ZX Excision of Descending Colon, Via Natural or Artificial Opening Endoscopic, Diagnostic (ICD-10-PCS; 2018-04-25)
PROC: 0DBK8ZX Excision of Ascending Colon, Via Natural or Artificial Opening Endoscopic, Diagnostic (ICD-10-PCS; principal; 2018-04-25 14:10)
DX: A04.72 Enterocolitis due to Clostridium difficile, not specified as recurrent (principal); K51.018 Ulcerative (chronic) pancolitis with other complication; K63.3 Ulcer of intestine; E87.6 Hypokalemia; K58.0 Irritable bowel syndrome with diarrhea; K52.831 Collagenous colitis; Z87.11 Personal history of peptic ulcer disease; Z87.442 Personal history of urinary calculi

== ENCOUNTER 2018-10-27 10:38 | Inpatient (IN) | payer MEDICARE, BC ==
[2018-10-27 10:48] VITALS: BMI 19.3
--- NOTE | 2018-10-27 11:35 | C.PDOC ---
History Of Present Illness 77 y/o female presents to ED complaining she doesnt feel well for a week, associated with productive cough with green sputum. Patient was seen by Dr. Zamora 4 days ago and gave her cough medicine. Today, patient developed fever and also complains of weakness and dizziness, which prompted her to the ER. Time Seen by Provider: 10/27/18 11:18 Chief Complaint (Nursing): Fever History Per: Patient History/Exam Limitations: no limitations Onset/Duration Of Symptoms: Days Current Symptoms Are (Timing): Still Present Past Medical History Reviewed: Historical Data, Nursing Documentation, Vital Signs Vital Signs: Last Vital Signs Temp 98.6 F 10/27/18 10:42 Pulse 93 H 10/27/18 10:42 Resp 18 10/27/18 10:42 BP 108/64 10/27/18 10:42 Pulse Ox 95 10/27/18 10:42 - Medical History PMH: Crohn's Disease, Kidney Stones (09-25-18 HAS A 2 MM STONE.), Chronic Pain (ulcerative colitis) Denies: Depression, Diverticulitis, Gastritis, Gall Bladder Disease, HIV, Pancreatitis, Chronic Kidney Disease - [facility] Procedures (01/28/18) (01/28/18) (01/28/18) (01/28/18) (01/28/18) CATARAC PHACOEMULS/ASPIR (09/11/13) CLOSED ENDOSCOPIC BIOPSY OF LARGE INTESTINE (02/11/14) CYSTOSCOPY NEC (11/27/06) ESOPHAGOGASTRODUODENOSCOPY [EGD] W/CLOSED BIOPSY (03/01/04) EXCISION OF ASCENDING COLON, ENDO, DIAGN (04/20/18) EXCISION OF DESCENDING COLON, ENDO, DIAGN (04/20/18) EXCISION OF LEFT LARGE INTESTINE, ENDO, DIAGN (02/14/18) EXCISION OF RECTUM, ENDO, DIAGN (04/20/18) EXCISION OF RIGHT LARGE INTESTINE, ENDO, DIAGN (02/14/18) EXCISION OF SIGMOID COLON, ENDO, DIAGN (04/20/18) EXCISION OF TRANSVERSE COLON, ENDO, DIAGN (04/20/18) FLEXIBLE SIGMOIDOSCOPY (03/26/03) INJECT/INFUSE NEC (03/16/06) INSERT LENS AT CATAR EXT (09/11/13) MAGNETIC RESONANCE IMAGING OF SPINAL CANAL (11/28/06) REMOV URETERAL DRAIN (11/27/06) RETROGRADE PYELOGRAM (07/07/14) URETERAL CATHETERIZATION (07/07/14) Family History: States: No Known Family Hx - Social History Hx Tobacco Use: No Hx Alcohol Use: Yes (WHITE WINE DURING DINNER AT TIMES) Hx Substance Use: No - Immunization History Hx Tetanus Toxoid Vaccination: Yes Hx Influenza Vaccination: No Hx Pneumococcal Vaccination: No Review Of Systems Except As Marked, All Systems Reviewed And Found Negative. Constitutional: Positive for: Fever Respiratory: Positive for: Cough (with green sputum) Neurological: Positive for: Weakness, Dizziness Physical Exam - Physical Exam Appears: Non-toxic, Other (Weak) Skin: Warm, Dry Head: Atraumatic, Normacephalic Eye(s): bilateral: Normal Inspection, PERRL, EOMI Oral Mucosa: Moist Throat: Normal, No Erythema, No Exudate, No Drooling Neck: Supple Chest: Symmetrical Cardiovascular: Rhythm Regular, No Murmur Respiratory: Decreased Breath Sounds (bilaterally), No Rales, No Rhonchi, No Wheezing Gastrointestinal/Abdominal: Soft, No Tenderness Extremity: Bilateral: Atraumatic, Normal Color And Temperature, Normal ROM Neurological/Psych: Oriented x3, Normal Speech ED Course And Treatment - Laboratory Results Result Diagrams: 10/27/18 12:15 10/27/18 12:15 O2 Sat by Pulse Oximetry: 95 (RA) Pulse Ox Interpretation: Normal - Other Rad Chest XR X-Ray: Read By Radiologist Interpretation: FINDINGS: LUNGS: Interval appearance of reticular opacities and prominent lung markings since the prior exam. PLEURA: Blunting of the left costophrenic angle is noted. CARDIOVASCULAR: No aortic atherosclerotic calcification present. Normal. OSSEOUS STRUCTURES: No significant abnormalities. VISUALIZED UPPER ABDOMEN: Normal. OTHER FINDINGS: None. IMPRESSION: Interval appearance of diffuse reticular opacities and prominent lung markings more prominent in the lower lobes since the previous exam. Possible small left pleural effusion. Progress Note: EKG, bloodwork, chest x-ray, and urinalysis ordered. Patient was given rocephin, IV fluids, Tylenol, and zithromax. CXR showed developed right- sided infiltrate and small left-sided pleural effusion. Spoke with patient's PMD Dr. Zamora who requested patient to be admitted to hospitalist service. Spoke to Dr. Perez who accepted patient to his service. Disposition - Disposition Disposition: HOSPITALIZED Disposition Time: 13:04 Condition: FAIR - Clinical Impression Clinical Impression: Fever, Pneumonia - PA / SUPPLY REQUIREMENTS OFFICER / Resident Statement MD/DO has reviewed & agrees with the documentation as recorded. - Scribe Statement The provider has reviewed the documentation as recorded by the Scribe Fioan Cruz All medical record entries made by the Scribe were at my direction and p ersonally dictated by me. I have reviewed the chart and agree that the record accurately reflects my personal performance of the history, physical exam, medical decision making, and the department course for this patient. I have also personally directed, reviewed, and agree with the discharge instructions and disposition.
[2018-10-27 12:19] LABS: VENOUS BLOOD GAS PCO2 38 mmHg (40-60); VENOUS BLOOD GAS PO2 24 mm/Hg (30-55); VENOUS BLOOD PH 7.43 (7.32-7.43)
[2018-10-27 12:22] LABS: BASO % 0.2 % (0.0-2.0); EOS # 0.2 K/uL (0.0-0.7); EOS % 1.5 % (0.0-4.0); HEMOGLOBIN 11.9 g/dL (11.0-16.0); LYMPH # 0.2 K/uL (1.0-4.3); LYMPH % 1.5 % (20.0-40.0); MEAN CELL VOLUME 97.9 fL (81.0-99.0); MEAN CORPUSCULAR HGB CONC 33.7 g/dL (33.0-37.0); MEAN PLATELET VOLUME 9.4 fL (7.2-11.7); MONO # 0.5 K/uL (0.0-0.8); NEUT # 15.3 K/uL (1.8-7.0); NEUT % 93.8 % (50.0-75.0); PLATELET COUNT 180 K/uL (130-400); RED CELL DISTRIBUTION WIDTH 14.2 % (11.5-14.5); WHITE BLOOD COUNT 16.3 K/uL (4.8-10.8)
[2018-10-27 12:29] LABS: INR 1.6; PROTHROMBIN TIME 17.8 SECONDS (9.7-12.2)
[2018-10-27 12:34] LABS: ALB/GLOB RATIO 1.1 (1.0-2.1); ALBUMIN 3.5 g/dL (3.5-5.0); ALT/SGPT 61 U/L (9-52); AMYLASE 45 U/L (30-110); AST/SGOT 54 U/L (14-36); BLOOD UREA NITROGEN 24 mg/dL (7-17); CALCIUM 8.5 mg/dl (8.6-10.4); GFR NON-AFRICAN AMERICAN > 60
[2018-10-27 12:36] LABS: LIPASE < 10 U/L (23-300)
[2018-10-27 12:47] LABS: INFLUENZA A B NEGATIVE FOR FLU A/B (NEGATIVE)
[2018-10-27] MEDS ORDERED: Azithromycin 500mg/250ML NS 500 MG/250 ML BAG IV ONE (13:00)
--- NOTE | 2018-10-27 13:18 | CP.PCM.HP ---
<Reema Perez - Last Filed: 10/27/18 18:04> History of Present Illness - History of Present Illness History of Present Illness: Hospitalist Medicine Note This is a 77 year old female with PMHx of Ulcerative Colitis, Nephrolithiasis, Herpes Zoster, Parkinson's and history of DVT with recent admission for CDiff, presents to the ED with 2 days of fever, chills, and productive cough. Patient went to go see her PMD on Sunday and was sent home with antibiotics and cough syrup. That night she spiked a fever of 104F. Over the weekend, patient reported she felt weaker and weaker over the weekend, unable to ambulate around her house. Admitted to generalized weakness, fatigue, productive cough with green/ white phlegm. Patient denied any recent sick contacts; patient have never received the flu shot. Denied any current chills, headache, chest pain, shortness of breath, abdominal pain, n/v/d/c, or urinary symptoms. PMHx: As noted above PSHx: EGD, Colonoscopy, tubal ligation All: NKDA SHx: quit smoking 15yrs ago, former 1/2ppd; social EtOH; denies drug use FHx: [facility]contribut[facility] [address] Present on Admission - Present on Admission Any Indicators Present on Admission: No Review of Systems - Constitutional Constitutional: Chills, Fatigue, Fever, Lethargy, Weakness. absent: Night Sweats - EENT Eyes: absent: Change in Vision, Diplopia Ears: absent: Tinnitus, Dizziness Nose/Mouth/Throat: absent: Dry Mouth, Sore Throat - Cardiovascular Cardiovascular: Dyspnea. absent: Chest Pain, Chest Pain at Rest, Dyspnea on Exertion, Pedal Edema - Respiratory Respiratory: Cough, Chest Congestion, Excessive Mucous Production, Change in Mucous Color, Pain with Coughing - Gastrointestinal Gastrointestinal: absent: Abdominal Pain, Diarrhea, Nausea, Vomiting - Genitourinary Genitourinary: absent: Dysuria, Hematuria Past Patient History - Infectious Disease Hx of Infectious Diseases: None - Tetanus Immunizations Tetanus Immunization: Unknown - Past Medical History & Family History Past Medical History?: Yes - Past Social History Smoking Status: Former Smoker - CARDIAC Hx Cardiac Disorders: Yes Hx Peripheral Vascular Disease: Yes (DVT) - PULMONARY Hx Respiratory Disorders: Yes (USED TO SMOKE CIGARETTES 1/2 PPD.15 YRS AGO.SMOKED SOCIALLY.) - NEUROLOGICAL Hx Neurological Disorder: Yes (TREMORS MAINLY TO LEFT HAND. PT ON MEDICATION FOR PARKINSON'S) - HEENT Hx HEENT Problems: No - RENAL Hx Chronic Kidney Disease: No Hx Kidney Stones: Yes (09-25-18 HAS A 2 MM STONE.) - ENDOCRINE/METABOLIC Hx Endocrine Disorders: No - HEMATOLOGICAL/ONCOLOGICAL Hx Human Immunodeficiency Virus (HIV): No - INTEGUMENTARY Hx Dermatological Problems: Yes Other/Comment: 09-25-18 SLIGHT REDDENED RASH TO RIGHT FLANK AREA. HAS PAIN. R/O SHINGLES. - MUSCULOSKELETAL/RHEUMATOLOGICAL Hx Musculoskeletal Disorders: Yes Hx Falls: Yes - GASTROINTESTINAL Hx Crohn's Disease: Yes Hx Diverticulitis: No Hx Gall Bladder Disease: No Hx Gastritis: No Hx Pancreatitis: No - GENITOURINARY/GYNECOLOGICAL Hx Genitourinary Disorders: Yes (Kidney stones last 2013,TUBAL LIGATION. C.S) - PSYCHIATRIC Hx Depression: No Hx Substance Use: No - SURGICAL HISTORY Hx Surgeries: Yes (BILATERAL CATARACT SX, TONSILLECTOMY,C/S,TUBAL LIGATION, KIDNEY STONE.) - ANESTHESIA Hx Anesthesia: No Hx Anesthesia Reactions: No Hx Malignant Hyperthermia: No Meds Allergies/Adverse Reactions: Allergies Allergy/AdvReac Type Severity Reaction Status Date / Time No Known Allergies Allergy Verified 10/27/18 10:44 Physical Exam - Constitutional Appears: Toxic - Head Exam Head Exam: NORMAL INSPECTION, NORMOCEPHALIC - Eye Exam Eye Exam: EOMI, Normal appearance, PERRL - ENT Exam ENT Exam: Mucous Membranes Dry - Respiratory Exam Respiratory Exam: Decreased Breath Sounds - Cardiovascular Exam Cardiovascular Exam: +S1, +S2 - GI/Abdominal Exam GI & Abdominal Exam: Normal Bowel Sounds, Soft. absent: Distended, Tenderness - Extremities Exam Extremities exam: Positive for: normal inspection, pedal pulses present. Negative for: pedal edema, tenderness - Neurological Exam Neurological exam: Alert, CN II-XII Intact, Oriented x3 - Psychiatric Exam Psychiatric exam: Normal Affect, Normal Mood - Skin Skin Exam: Dry, Intact, Normal Color, Warm Results - Vital Signs Recent Vital Signs: Last Vital Signs Temp 101.6 F H 10/27/18 11:37 Pulse 90 10/27/18 11:24 Resp 21 10/27/18 12:48 BP 113/50 L 10/27/18 11:24 Pulse Ox 95 10/27/18 13:09 - Labs Result Diagrams: 10/27/18 12:15 10/27/18 12:15 Labs: Laboratory Results - last 24 hr 10/27/18 10/27/18 10/27/18 12:02 12:15 12:15 WBC 16.3 H D RBC 3.60 L Hgb 11.9 Hct 35.3 MCV 97.9 MCH 33.0 H MCHC 33.7 RDW 14.2 Plt Count 180 MPV 9.4 Neut % (Auto) 93.8 H Lymph % (Auto) 1.5 L [place] % (Auto) 3.0 Eos % (Auto) 1.5 Baso % (Auto) 0.2 Neut # (Auto) 15.3 H Lymph # (Auto) 0.2 L [place] # (Auto) 0.5 Eos # (Auto) 0.2 Baso # (Auto) 0.0 PT 17.8 H INR 1.6 APTT 33 pO2 VBG pH VBG pCO2 VBG HCO3 VBG Total CO2 VBG O2 Sat (Calc) VBG Base Excess VBG Potassium Glucose Lactate Sodium Potassium Chloride Carbon Dioxide Anion Gap BUN Creatinine Est GFR ( Amer) Est GFR (Non-Af Amer) Random Glucose Calcium Phosphorus Magnesium Total Bilirubin AST ALT Alkaline Phosphatase Total Protein Albumin Globulin Albumin/Globulin Ratio Amylase Lipase Venous Blood Potassium Influenza Typ A,B (EIA) Negative for flu a/b RSV Antigen Negative 10/27/18 10/27/18 12:15 12:16 WBC RBC Hgb Hct MCV MCH MCHC RDW Plt Count MPV Neut % (Auto) Lymph % (Auto) [place] % (Auto) Eos % (Auto) Baso % (Auto) Neut # (Auto) Lymph # (Auto) [place] # (Auto) Eos # (Auto) Baso # (Auto) PT INR APTT pO2 24 L VBG pH 7.43 VBG pCO2 38 L VBG HCO3 24.3 VBG Total CO2 26.4 VBG O2 Sat (Calc) 47.9 VBG Base Excess 1.0 VBG Potassium 3.1 L Glucose 112 H Lactate 2.2 H Sodium 132 136.0 Potassium 3.2 L Chloride 96 L 102.0 Carbon Dioxide 23 Anion Gap 16 BUN 24 H Creatinine 0.9 Est GFR ( Amer) > 60 Est GFR (Non-Af Amer) > 60 Random Glucose 117 H Calcium 8.5 L Phosphorus 3.1 Magnesium 1.4 L Total Bilirubin 0.6 AST 54 H D ALT 61 H D Alkaline Phosphatase 168 H D Total Protein 6.8 Albumin 3.5 D Globulin 3.3 Albumin/Globulin Ratio 1.1 Amylase 45 Lipase < 10 L Venous Blood Potassium 3.1 L Influenza Typ A,B (EIA) RSV Antigen Assessment & Plan - Assessment and Plan (Free Text) Plan: Multifocal Pneumonia Imaging: - CXR: Interval appearance of diffuse reticular opacities and prominent lung markings more prominent in the lower lobes since the previous exam. Possible small left pleural effusion. - Chest CT: Patchy ground-glass opacities and diffuse interstitial septal thickening may represent pneumonitis or pulmonary edema/congestion. Left lung base atelectasis. Small bilateral pleural effusion. Mildly enlarged mediastinal lymph nodes. Management: - Labs sent out for atypicals, flu negative - Blood, Urine, and Sputum cultures, pending results - Maintanence fluids at 100cc/hr, will monitor to prevent from a fluid overload - Primaxin Q6H, vanco Q12 (10/27/18) follow up vanco trough on 10/29/18 (prior to 4th dose) - Robitussin PRN for cough, robitussin DM at night as needed - Duonebs Q4H ELLIOTT, with 2 doses of Mucomyst Parkinson's - Resumed Mirapex Ulcerative Colitis - Currently not on any maintenance therapy, follows up with Dr. Lemus Recent Admission for C.Diff Nephrolithiasis - Asymptomatic Herpes Zoster History of DVT Prophylactic Measures - GI PPX: Protonix, probiotics - DVT PPX: SCDs, Hep Q12 - PT Eval Case discussed with Reema Yang DO, PGY2 <Dain Perez H - Last Filed: 10/27/18 18:25> Results - Vital Signs Recent Vital Signs: Last Vital Signs Temp 98 F 10/27/18 14:50 Pulse 120 H 10/27/18 14:50 Resp 20 10/27/18 14:50 BP 97/52 L 10/27/18 14:50 Pulse Ox 95 10/27/18 17:22 - Labs Result Diagrams: 10/27/18 12:15 10/27/18 12:15 Labs: Laboratory Results - last 24 hr 10/27/18 10/27/18 10/27/18 12:02 12:15 12:15 WBC 16.3 H D RBC 3.60 L Hgb 11.9 Hct 35.3 MCV 97.9 MCH 33.0 H MCHC 33.7 RDW 14.2 Plt Count 180 MPV 9.4 Neut % (Auto) 93.8 H Lymph % (Auto) 1.5 L [place] % (Auto) 3.0 Eos % (Auto) 1.5 Baso % (Auto) 0.2 Neut # (Auto) 15.3 H Lymph # (Auto) 0.2 L [place] # (Auto) 0.5 Eos # (Auto) 0.2 Baso # (Auto) 0.0 Neutrophils % (Manual) 78 H Band Neutrophils % 15 H* Lymphocytes % (Manual) 2 L Monocytes % (Manual) 3 Eosinophils % (Manual) 2 Platelet Estimate Normal RBC Morphology Normal PT 17.8 H INR 1.6 APTT 33 pO2 VBG pH VBG pCO2 VBG HCO3 VBG Total CO2 VBG O2 Sat (Calc) VBG Base Excess VBG Potassium Glucose Lactate Sodium Potassium Chloride Carbon Dioxide Anion Gap BUN Creatinine Est GFR ( Amer) Est GFR (Non-Af Amer) Random Glucose Lactic Acid Calcium Phosphorus Magnesium Total Bilirubin AST ALT Alkaline Phosphatase Total Protein Albumin Globulin Albumin/Globulin Ratio Amylase Lipase Procalcitonin Venous Blood Potassium Influenza Typ A,B (EIA) Negative for flu a/b Ur L.pneumophila Ag RSV Antigen Negative 10/27/18 10/27/18 10/27/18 12:15 12:16 13:43 WBC RBC Hgb Hct MCV MCH MCHC RDW Plt Count MPV Neut % (Auto) Lymph % (Auto) [place] % (Auto) Eos % (Auto) Baso % (Auto) Neut # (Auto) Lymph # (Auto) [place] # (Auto) Eos # (Auto) Baso # (Auto) Neutrophils % (Manual) Band Neutrophils % Lymphocytes % (Manual) Monocytes % (Manual) Eosinophils % (Manual) Platelet Estimate RBC Morphology PT INR APTT pO2 24 L VBG pH 7.43 VBG pCO2 38 L VBG HCO3 24.3 VBG Total CO2 26.4 VBG O2 Sat (Calc) 47.9 VBG Base Excess 1.0 VBG Potassium 3.1 L Glucose 112 H Lactate 2.2 H Sodium 132 136.0 Potassium 3.2 L Chloride 96 L 102.0 Carbon Dioxide 23 Anion Gap 16 BUN 24 H Creatinine 0.9 Est GFR ( Amer) > 60 Est GFR (Non-Af Amer) > 60 Random Glucose 117 H Lactic Acid Calcium 8.5 L Phosphorus 3.1 Magnesium 1.4 L Total Bilirubin 0.6 AST 54 H D ALT 61 H D Alkaline Phosphatase 168 H D Total Protein 6.8 Albumin 3.5 D Globulin 3.3 Albumin/Globulin Ratio 1.1 Amylase 45 Lipase < 10 L Procalcitonin 5.00 H Venous Blood Potassium 3.1 L Influenza Typ A,B (EIA) Ur L.pneumophila Ag RSV Antigen 10/27/18 10/27/18 14:10 14:10 WBC RBC Hgb Hct MCV MCH MCHC RDW Plt Count MPV Neut % (Auto) Lymph % (Auto) [place] % (Auto) Eos % (Auto) Baso % (Auto) Neut # (Auto) Lymph # (Auto) [place] # (Auto) Eos # (Auto) Baso # (Auto) Neutrophils % (Manual) Band Neutrophils % Lymphocytes % (Manual) Monocytes % (Manual) Eosinophils % (Manual) Platelet Estimate RBC Morphology PT INR APTT pO2 VBG pH VBG pCO2 VBG HCO3 VBG Total CO2 VBG O2 Sat (Calc) VBG Base Excess VBG Potassium Glucose Lactate Sodium Potassium Chloride Carbon Dioxide Anion Gap BUN Creatinine Est GFR ( Amer) Est GFR (Non-Af Amer) Random Glucose Lactic Acid 1.5 Calcium Phosphorus Magnesium Total Bilirubin AST ALT Alkaline Phosphatase Total Protein Albumin Globulin Albumin/Globulin Ratio Amylase Lipase Procalcitonin Venous Blood Potassium Influenza Typ A,B (EIA) Ur L.pneumophila Ag Negative RSV Antigen Attending/Attestation - Attestation I have personally seen and examined this patient.: Yes I have fully participated in the care of the patient.: Yes I have reviewed all pertinent clinical information: Yes Notes (Text): 10/27/18 18:25 Medical attending: Patient was seen and examined by me, reviewed the above note by the ophthalmic medical technician. We saw the patient together. The patient has a history of Crohn's disease, as well as Parkinson's disease, and also recent admission for C. difficile and a history for kidney stones as well. She comes to the emergency room with a chief complaint of fevers, coughing, and sputum production. She was seen by her outpatient primary care physician and received oral antibiotics however she felt like these were not helping so she came to the emergency room. She's had several recent stays due to her history of Crohn's disease. This time she was reporting no abdominal pain, no diarrhea, no vomiting. She is here due to the difficulty breathing, shortness of breath, sputum production. Review of lab work shows that she really has bandemia 15, white blood cell count is elevated at 16 and there is left shift. Blood cultures and urine cultures ever been taken. Orders for sputum cultures have also been done as well. The patient's can be on intravenous fluids, also will be periodic checks of her pro- calcitonin. Her IV antibiotics started on vancomycin and also Primaxin IV CT imaging of the lungs without contrast shows that she has extensive bilateral infiltrates. The CAT scan was compared to another one that she had about 5 months ago and at that time the lungs appear to be very clear. Patient will need infectious disease evaluation, and possibly a pulmonology evaluation if she does not improve Dain Perez
[2018-10-27 13:19] LABS: BANDS 15 % (0-2); EOSINOPHIL 2 % (0-4); LYMPHOCYTE 2 % (20-40); MONOCYTE 3 % (0-10); NEUTROPHIL 78 % (50-75); TOTAL CELLS COUNTED 100
[2018-10-27 13:20] LABS: PLATELET ESTIMATE NORMAL (NORMAL)
[2018-10-27] MEDS ORDERED: Potassium Chloride 20 mEq ER Tab PO ONE ×2 (13:22→13:36)
[2018-10-27] MEDS ORDERED: Azithromycin 500mg/250ML NS 500 MG/250 ML BAG IVPB ONE (13:27)
[2018-10-27] MEDS ORDERED: Sodium Chloride 0.9% 1,000 ML ONE (13:27)
[2018-10-27] MEDS ORDERED: cefTRIAXone 1 gm 1 GM/100 ML BAG IVPB ONE (13:27)
[2018-10-27] MEDS ORDERED: Sodium Chloride 0.9% 1,000 ML IV ONE (13:28)
[2018-10-27] MEDS ORDERED: Magnesium Sulfate 1 gm in D5W 1 GM/100 ML BAG IVPB ONE (13:35)
[2018-10-27] MEDS: Magnesium Sulfate 1 gm in D5W 1 GM/100 ML BAG IVPB SCH ×2 (13:42→17:23)
[2018-10-27] MEDS ORDERED: Sodium Chloride 0.9% 1,000 ML IV SCH (15:00)
--- NOTE | 2018-10-27 15:24 | RAD ---
Date of service: 10/27/2018 PROCEDURE: CHEST RADIOGRAPH, 1 VIEW HISTORY: fever/cough COMPARISON: Comparison is made with 04/25/2018 FINDINGS: LUNGS: Interval appearance of reticular opacities and prominent lung markings since the prior exam. PLEURA: Blunting of the left costophrenic angle is noted. CARDIOVASCULAR: No aortic atherosclerotic calcification present. Normal. OSSEOUS STRUCTURES: No significant abnormalities. VISUALIZED UPPER ABDOMEN: Normal. OTHER FINDINGS: None. IMPRESSION: Interval appearance of diffuse reticular opacities and prominent lung markings more prominent in the lower lobes since the previous exam. Possible small left pleural effusion.
--- NOTE | 2018-10-27 17:32 | CT ---
Date of service: 10/27/2018 PROCEDURE: CT Chest without contrast HISTORY: penumonia suspect, sepsis COMPARISON: None available. TECHNIQUE: Contiguous axial images were obtained through the chest without intravenous contrast enhancement. Sagittal and coronal reconstructions were performed. Radiation dose: Total exam DLP = 472.46 mGy-cm. This CT exam was performed using one or more of the following dose reduction techniques: Automated exposure control, adjustment of the mA and/or kV according to patient size, and/or use of iterative reconstruction technique. FINDINGS: LUNGS: There are patchy ground-glass opacities. There are diffuse interstitial septal thickening in the lungs. Findings are nonspecific and the differential consideration include a pneumonitis or less likely infectious process. There is airspace consolidation at the left lung base likely atelectasis. MEDIASTINUM: Unremarkable thoracic aorta. No aneurysm. The heart is upper normal limit in size. The main pulmonary artery is mildly enlarged. Moderate pulmonary congestion is noted. Mildly enlarged mediastinal lymph nodes are noted. Atherosclerotic calcification is noted. PLEURA: Bilateral small pleural effusions larger on the right. BONES: No fracture. No destructive lesion. UPPER ABDOMEN: Grossly unremarkable. OTHER FINDINGS: None. IMPRESSION: Patchy ground-glass opacities and diffuse interstitial septal thickening may represent pneumonitis or pulmonary edema/congestion. Left lung base atelectasis. Small bilateral pleural effusion. Mildly enlarged mediastinal lymph nodes.
[2018-10-27] MEDS ORDERED: guaiFENesin DM 100 mg-10 mg/5 ml UD PO PRN (17:35)
[2018-10-27] MEDS ORDERED: guaiFENesin 200 mg/10 ml Syrup UD PO PRN (17:36)
[2018-10-27] MEDS: Lactobacillus Acidophilus 500 MU Cap PO SCH (19:34)
[2018-10-27] MEDS: Vancomycin 1 gm/NS 200 ml 1 GM/200 ML BAG IVPB SCH (20:30)
[2018-10-27 23:38] LABS: SQUAMOUS EPITHIAL 1 /hpf (0-5); URINE AMORPHOUS SEDIMENT FEW /ul (<OCC); URINE BILIRUBIN NEGATIVE (NEGATIVE); URINE BLOOD 1+ (NEGATIVE); URINE CLARITY Hazy (Clear); URINE COLOR Yellow (YELLOW); URINE GLUCOSE (UA) 2+ mg/dL (Normal); URINE LEUKOCYTE ESTERASE TRACE Leu/uL (Negative); URINE PROTEIN 1+ mg/dL (NEGATIVE); URINE UROBILINOGEN NORMAL mg/dL (0.2-1.0)
[2018-10-28] MEDS: Acetylcysteine 20% Inhal Soln (4ml) INH SCH ×2 (02:26→20:08)
[2018-10-28] MEDS: Albuterol-Ipratrop 3 mg / 0.5 (3 ml) UD INH SCH ×2 (02:26→20:08)
[2018-10-28] MEDS: Vancomycin 1 gm/NS 200 ml 1 GM/200 ML BAG IVPB SCH ×2 (05:38→18:24)
[2018-10-28 07:15] LABS: BASO % 0.3 % (0.0-2.0); EOS # 0.3 K/uL (0.0-0.7); EOS % 3.4 % (0.0-4.0); HEMOGLOBIN 10.6 g/dL (11.0-16.0); LYMPH # 0.6 K/uL (1.0-4.3); LYMPH % 6.3 % (20.0-40.0); MEAN CELL VOLUME 98.2 fL (81.0-99.0); MEAN CORPUSCULAR HEMOGLOBIN 33.3 pg (27.0-31.0); MEAN CORPUSCULAR HGB CONC 33.9 g/dL (33.0-37.0); MEAN PLATELET VOLUME 9.5 fL (7.2-11.7); MONO # 0.5 K/uL (0.0-0.8); MONO % 4.9 % (0.0-10.0); NEUT # 8.6 K/uL (1.8-7.0); NEUT % 85.1 % (50.0-75.0); PLATELET COUNT 158 K/uL (130-400); RBC 3.18 Mil/uL (3.80-5.20); RED CELL DISTRIBUTION WIDTH 14.1 % (11.5-14.5); WHITE BLOOD COUNT 10.1 K/uL (4.8-10.8)
[2018-10-28 08:23] LABS: ALB/GLOB RATIO 0.9 (1.0-2.1); ALBUMIN 2.6 g/dL (3.5-5.0); ALT/SGPT 44 U/L (9-52); AST/SGOT 29 U/L (14-36); BLOOD UREA NITROGEN 21 mg/dL (7-17); CALCIUM 7.8 mg/dl (8.6-10.4); GFR NON-AFRICAN AMERICAN > 60
[2018-10-28 09:14] LABS: ANISOCYTOSIS SLIGHT; BANDS 7 % (0-2); EOSINOPHIL 5 % (0-4); LYMPHOCYTE 5 % (20-40); MONOCYTE 3 % (0-10); NEUTROPHIL 80 % (50-75); PLATELET ESTIMATE NORMAL (NORMAL); POIKILOCYTOSIS SLIGHT; TOTAL CELLS COUNTED 100
[2018-10-28 09:15] LABS: HYPOCHROMIC SLIGHT
[2018-10-28] MEDS: Lactobacillus Acidophilus 500 MU Cap PO SCH ×2 (10:13→17:18)
[2018-10-28] MEDS: Pantoprazole 40 mg EC Tab PO SCH (10:13)
[2018-10-28] MEDS ORDERED: Potassium Chloride 20 mEq ER Tab PO ONE (10:46)
--- NOTE | 2018-10-28 10:59 | CP.PCM.CON ---
History of Present Illness - History of Present Illness History of Present Illness: 77 year old female with PMHx of Ulcerative Colitis, Nephrolithiasis, Herpes Zoster, Parkinson's and history of DVT with recent admission for CDiff, presents to the ED with 5 days of fever, chills, and productive cough. Patient went to go see her PMD on Sunday and was sent home with antibiotics and cough syrup despite this , she spiked a fever of 104F and became more SOB PMHx: Ulcerative Colitis, Nephrolithiasis, Herpes Zoster, Parkinson's and history of DVT , CDiff, PSHx: EGD, Colonoscopy, tubal ligation All: NKDA SHx: former 1/2ppd; social EtOH; denies drug use FHx: Noncontributory Review of Systems - Review of Systems All systems: reviewed and no additional remarkable complaints except - Constitutional Constitutional: As Per HPI, Chills, Excessive Sweating, Fever, Lethargy, Malaise - EENT Eyes: absent: As Per HPI, Blind Spots, Blurred Vision, Change in Vision, Decrea sed Night Vision, Diplopia, Discharge, Dry Eye, Exophthalmos, Floaters, Irritation, Itchy Eyes, Loss of Peripheral Vision, Pain, Photophobia, Requires Corrective Lenses, Sees Flashes, Spots in Vision, Tunnel Vision, Other Visual Disturbances, Loss of Vision, Other Ears: absent: As Per HPI, Decreased Hearing, Ear Discharge, Ear Pain, Tinnitus, Abnormal Hearing, Disequilibrium, Dizziness, Other Nose/Mouth/Throat: absent: As Per HPI, Epistaxis, Nasal Congestion, Nasal Discharge, Nasal Obstruction, Nasal Trauma, Nose Pain, Post Nasal Drip, Sinus Pa in, Sinus Pressure, Bleeding Gums, Change in Voice, Dental Pain, Dry Mouth, Dysphagia, Halitosis, Hoarsness, Lip Swelling, Mouth Lesions, Mouth Pain, Odynophagia, Sore Throat, Throat Swelling, Tongue Swelling, Facial Pain, Neck Pain, Neck Mass, Other - Breasts Breasts: absent: As Per HPI, Change in Shape, Mass, Pain, Nipple Discharge, Nipple Inversion, Skin Changes, Swelling, Other - Cardiovascular Cardiovascular: absent: As Per HPI, Acrocyanosis, Chest Pain, Chest Pain at Rest, Chest Pain with Activity, Claudication, Diaphoresis, Dyspnea, Dyspnea on Exertion, Edema, Irregular Heart Rhythm, Pain Radiating to Arm/Neck/Jaw, Leg Edema, Leg Ulcers, Lightheadedness, Orthopnea, Palpitations, Paroxysmal Nocturnal Dyspnea, Pedal Edema, Radiating Pain, Rapid Heart Rate, Slow Heart Rate, Syncope, Other - Respiratory Respiratory: As Per HPI, Cough, Dyspnea, Dyspnea on Exertion, Excessive Mucous Production. absent: Hemoptysis - Gastrointestinal Gastrointestinal: As Per HPI - Genitourinary Genitourinary: absent: As Per HPI, Change in Urinary Stream, Difficulty Urinating, Dysuria, Flank Pain, Hematuria, Pyuria, Nocturia, Urinary Incontinence, Urinary Frequency, Urinary Hesitance, Urinary Urgency, Voiding Freq/Small Amts, Freq UTI, Hx Renal/Bladder Calculi, Hx /Renal Surgery, Bladder Distension, Other - Reproductive: Female Reproductive:Female: absent: As Per HPI, Amenorrhea, Amenorrhea/ Control, Currently Menstual, Cycle <21 Days, Cycle >35 Days, Cycle Variable, Menses 1-7 Days, Menses >/= 8 Days, Menses Variable, Cycle > 4 Weeks Between, No Menses for 6 Months, Heavy Menses, Light Menses, Normal Menses, Spotting Between Cycles, S/P Hysterectomy, Menopausal, Post Menopausal, Premenarche, Abnormal Vaginal Bleeding, Dysmenorrhea, Dyspareunia, Genital Lesions, Genital Pruritis, Pelvic Pain, Prolapse Symptoms, Sexual Dysfunction, Vaginal Discharge, Vaginal Dryness, Vaginal Odor, Vaginal Pruritis, Other - Menstruation Menstruation: absent: As Per HPI, Amenorrhea, Amenorrhea/ Control, Currently Menstual, Cycle <21 Days, Cycle >35 Days, Cycle Variable, Menses 1-7 Days, Menses >/= 8 Days, Menses Variable, Cycle > 4 Weeks Between, No Menses for 6 Months, Heavy Menses, Light Menses, Normal Menses, Spotting Between Cycles, S/P Hysterectomy, Menopausal, Post Menopausal, Premenarche, Abnormal Vaginal Bleeding, Dysmenorrhea, Other - Musculoskeletal Musculoskeletal: absent: As Per HPI, Abnormal Gait, Arthralgias, Atrophy, Back Pain, Deformity, Joint Swelling, Limited Range of Motion, Loss of Height, Muscle Cramps, Muscle Weakness, Myalgias, Neck Pain, Numbness, Radiating Pain into Limb, Stiffness, Tingling, Other - Integumentary Integumentary: absent: As Per HPI, Acne, Alopecia, Bleeding Lesions, Change in Hair, Change in Nails, Change in Pigmentation, Changing Lesions, Dry Skin, Erythema, Furuncle, Hirsutism, Lesions, New Lesions, Non-Healing Lesions, Photosensitivity, Pruritus, Rash, Skin Pain, Skin Ulcer, Sores, Striae, Swelling, Unusual Bruising, Wounds, Jaundice, Other - Neurological Neurological: absent: As Per HPI, Abnormal Gait, Abnormal Hearing, Abnormal Movements, Abnormal Speech, Behavioral Changes, Burning Sensations, Confusion, Convulsions, Disequilibrium, Dizziness, Numbness, Focal Weakness, Frequent Falls, Headaches, Lack of Coordination, Loss of Vision, Memory Loss, Paresthesias, Radicular Pain, Restless Legs, Sensory Deficit, Syncope, Tingling, Tremor, Vertigo, Weakness, Other Visual Disturbances, Other - Psychiatric Psychiatric: absent: As Per HPI, Abnormal Sleep Pattern, Anhedonia, Anxiety, Auditory Hallucinations, Behavioral Changes, Change in Appetite, Change in Libido, Confusion, Depression, Difficulty Concentrating, Hallucinations, Homicidal Ideation, Hopelessness, Irritability, Memory Loss, Mood Swings, Panic Attacks, Paranoia, Suicidal Ideation, Visual Hallucinations, Tactile Hallucinations, Other - Endocrine Endocrine: absent: As Per HPI, Change in Body Appearance, Change in Libido, Cold Intolorance, Deepening of Voice, Excessive Sweating, Fatigue, Flushing, Heat Intolorance, Increase in Ring/Shoe/Hat Size, Palpitations, Polydipsia, Polyphagia, Polyuria, Other - Hematologic/Lymphatic Hematologic: absent: As Per HPI, Easy Bleeding, Easy Bruising, Lymphadenopathy, Other Past Patient History - Infectious Disease Hx of Infectious Diseases: None - Tetanus Immunizations Tetanus Immunization: Unknown - Past Medical History & Family History Past Medical History?: Yes - Past Social History Smoking Status: Former Smoker - CARDIAC Hx Cardiac Disorders: Yes Hx Peripheral Vascular Disease: Yes (DVT) - PULMONARY Hx Respiratory Disorders: Yes (USED TO SMOKE CIGARETTES 1/2 PPD.15 YRS AGO.SMOKED SOCIALLY.) - NEUROLOGICAL Hx Neurological Disorder: Yes (TREMORS MAINLY TO LEFT HAND. PT ON MEDICATION FOR PARKINSON'S) - HEENT Hx HEENT Problems: No - RENAL Hx Chronic Kidney Disease: No Hx Kidney Stones: Yes (09-25-18 HAS A 2 MM STONE.) - ENDOCRINE/METABOLIC Hx Endocrine Disorders: No - HEMATOLOGICAL/ONCOLOGICAL Hx Human Immunodeficiency Virus (HIV): No - INTEGUMENTARY Hx Dermatological Problems: Yes Other/Comment: 09-25-18 SLIGHT REDDENED RASH TO RIGHT FLANK AREA. HAS PAIN. R/O SHINGLES. - MUSCULOSKELETAL/RHEUMATOLOGICAL Hx Musculoskeletal Disorders: Yes Hx Falls: Yes - GASTROINTESTINAL Hx Crohn's Disease: Yes Hx Diverticulitis: No Hx Gall Bladder Disease: No Hx Gastritis: No Hx Pancreatitis: No - GENITOURINARY/GYNECOLOGICAL Hx Genitourinary Disorders: Yes (Kidney stones last 2013,TUBAL LIGATION. C.S) - PSYCHIATRIC Hx Depression: No Hx Substance Use: No - SURGICAL HISTORY Hx Surgeries: Yes (BILATERAL CATARACT SX, TONSILLECTOMY,C/S,TUBAL LIGATION, KIDNEY STONE.) - ANESTHESIA Hx Anesthesia: No Hx Anesthesia Reactions: No Hx Malignant Hyperthermia: No Meds Allergies/Adverse Reactions: Allergies Allergy/AdvReac Type Severity Reaction Status Date / Time No Known Allergies Allergy Verified 10/27/18 10:44 - Medications Medications: Current Medications Acetylcysteine (Acetylcysteine 20%) 4 ml INH RQ6 [facility] Last Admin: 10/28/18 02:26 Dose: 4 ml Guaifenesin (Robitussin) 200 mg PO Q4H PRN PRN Reason: Cough and congestion Guaifenesin/Dextromethorphan (Robitussin Dm) 5 ml PO QPM PRN PRN Reason: Cough Last Admin: 10/28/18 10:13 Dose: 5 ml Heparin Sodium (Porcine) (Heparin) 5,000 units SC Q12 [facility] Last Admin: 10/28/18 10:13 Dose: 5,000 units Vancomycin/Sodium Chloride (Vancomycin 1 Gm/Ns 200 Ml) 1 gm in 200 mls @ 133 mls/hr IVPB Q12H [facility]; Protocol Stop: 11/01/18 17:01 Last Admin: 10/28/18 05:38 Dose: 133 mls/hr Imipenem/Cilastatin Sodium 500 (mg/ Sodium Chloride) 100 mls @ 100 mls/hr IVPB Q6H [facility]; Protocol Last Admin: 10/28/18 10:14 Dose: 100 mls/hr Lactobacillus Acidophilus (Bacid Acidophilus) 1 cap PO BID [facility] Last Admin: 10/28/18 10:13 Dose: 1 cap Pantoprazole Sodium (Protonix Ec Tab) 40 mg PO DAILY [facility] Last Admin: 10/28/18 10:13 Dose: 40 mg Potassium Chloride (K-Dur 20 Meq Er Tab) 40 meq PO ONCE ONE Stop: 10/28/18 10:47 Pramipexole Dihydrochloride (Mirapex) 0.5 mg PO DAILY [facility] Last Admin: 10/28/18 10:13 Dose: 0.5 mg Physical Exam - Constitutional Appears: Non-toxic, No Acute Distress, Cachectic, Chronically Ill - Head Exam Head Exam: ATRAUMATIC, NORMAL INSPECTION, NORMOCEPHALIC - Eye Exam Eye Exam: PERRL. absent: Scleral icterus - ENT Exam ENT Exam: Mucous Membranes Dry - Neck Exam Neck exam: Negative for: Lymphadenopathy - Respiratory Exam Respiratory Exam: Decreased Breath Sounds, Rhonchi - Cardiovascular Exam Cardiovascular Exam: REGULAR RHYTHM, +S1, +S2 - GI/Abdominal Exam GI & Abdominal Exam: Diminished Bowel Sounds, Distended, Soft. absent: Tenderness - Rectal Exam Rectal Exam: Deferred - Exam Exam: NORMAL INSPECTION - Extremities Exam Extremities exam: Positive for: pedal pulses present. Negative for: calf tenderness, pedal edema - Back Exam Back exam: absent: CVA tenderness (L), CVA tenderness (R), paraspinal tenderness - Neurological Exam Neurological exam: Alert, CN II-XII Intact, Oriented x3, Reflexes Normal - Psychiatric Exam Psychiatric exam: Depressed - Skin Skin Exam: Dry, Intact Results - Vital Signs Recent Vital Signs: Last Vital Signs Temp 98.0 F 10/28/18 07:00 Pulse 88 10/28/18 07:00 Resp 18 10/28/18 07:00 BP 109/68 10/28/18 07:00 Pulse Ox 96 10/28/18 07:00 - Labs Result Diagrams: 10/28/18 07:05 10/28/18 07:05 Labs: Laboratory Results - last 24 hr 10/27/18 10/27/18 10/27/18 12:02 12:15 12:15 WBC 16.3 H D RBC 3.60 L Hgb 11.9 Hct 35.3 MCV 97.9 MCH 33.0 H MCHC 33.7 RDW 14.2 Plt Count 180 MPV 9.4 Neut % (Auto) 93.8 H Lymph % (Auto) 1.5 L Mckean % (Auto) 3.0 Eos % (Auto) 1.5 Baso % (Auto) 0.2 Neut # (Auto) 15.3 H Lymph # (Auto) 0.2 L Mckean # (Auto) 0.5 Eos # (Auto) 0.2 Baso # (Auto) 0.0 Neutrophils % (Manual) 78 H Band Neutrophils % 15 H* Lymphocytes % (Manual) 2 L Monocytes % (Manual) 3 Eosinophils % (Manual) 2 Platelet Estimate Normal RBC Morphology Normal Hypochromasia (manual) Poikilocytosis (manual Anisocytosis (manual) PT 17.8 H INR 1.6 APTT 33 pO2 VBG pH VBG pCO2 VBG HCO3 VBG Total CO2 VBG O2 Sat (Calc) VBG Base Excess VBG Potassium Glucose Lactate Sodium Potassium Chloride Carbon Dioxide Anion Gap BUN Creatinine Est GFR ( Amer) Est GFR (Non-Af Amer) Random Glucose Lactic Acid Calcium Phosphorus Magnesium Total Bilirubin AST ALT Alkaline Phosphatase Total Protein Albumin Globulin Albumin/Globulin Ratio Amylase Lipase Procalcitonin Venous Blood Potassium Urine Color Urine Clarity Urine pH Ur Specific [place] Urine Protein Urine Glucose (UA) Urine Ketones Urine Blood Urine Nitrate Urine Bilirubin Urine Urobilinogen Ur Leukocyte Esterase Urine WBC (Auto) Urine RBC (Auto) Ur Squamous Epith Cells Amorphous Sediment Influenza Typ A,B (EIA) Negative for flu a/b Ur L.pneumophila Ag RSV Antigen Negative 10/27/18 10/27/18 10/27/18 12:15 12:16 13:43 WBC RBC Hgb Hct MCV MCH MCHC RDW Plt Count MPV Neut % (Auto) Lymph % (Auto) Mckean % (Auto) Eos % (Auto) Baso % (Auto) Neut # (Auto) Lymph # (Auto) Mckean # (Auto) Eos # (Auto) Baso # (Auto) Neutrophils % (Manual) Band Neutrophils % Lymphocytes % (Manual) Monocytes % (Manual) Eosinophils % (Manual) Platelet Estimate RBC Morphology Hypochromasia (manual) Poikilocytosis (manual Anisocytosis (manual) PT INR APTT pO2 24 L VBG pH 7.43 VBG pCO2 38 L VBG HCO3 24.3 VBG Total CO2 26.4 VBG O2 Sat (Calc) 47.9 VBG Base Excess 1.0 VBG Potassium 3.1 L Glucose 112 H Lactate 2.2 H Sodium 132 136.0 Potassium 3.2 L Chloride 96 L 102.0 Carbon Dioxide 23 Anion Gap 16 BUN 24 H Creatinine 0.9 Est GFR ( Amer) > 60 Est GFR (Non-Af Amer) > 60 Random Glucose 117 H Lactic Acid Calcium 8.5 L Phosphorus 3.1 Magnesium 1.4 L Total Bilirubin 0.6 AST 54 H D ALT 61 H D Alkaline Phosphatase 168 H D Total Protein 6.8 Albumin 3.5 D Globulin 3.3 Albumin/Globulin Ratio 1.1 Amylase 45 Lipase < 10 L Procalcitonin 5.00 H Venous Blood Potassium 3.1 L Urine Color Urine Clarity Urine pH Ur Specific [place] Urine Protein Urine Glucose (UA) Urine Ketones Urine Blood Urine Nitrate Urine Bilirubin Urine Urobilinogen Ur Leukocyte Esterase Urine WBC (Auto) Urine RBC (Auto) Ur Squamous Epith Cells Amorphous Sediment Influenza Typ A,B (EIA) Ur L.pneumophila Ag RSV Antigen 10/27/18 10/27/18 10/27/18 14:10 14:10 22:56 WBC RBC Hgb Hct MCV MCH MCHC RDW Plt Count MPV Neut % (Auto) Lymph % (Auto) Mckean % (Auto) Eos % (Auto) Baso % (Auto) Neut # (Auto) Lymph # (Auto) Mckean # (Auto) Eos # (Auto) Baso # (Auto) Neutrophils % (Manual) Band Neutrophils % Lymphocytes % (Manual) Monocytes % (Manual) Eosinophils % (Manual) Platelet Estimate RBC Morphology Hypochromasia (manual) Poikilocytosis (manual Anisocytosis (manual) PT INR APTT pO2 VBG pH VBG pCO2 VBG HCO3 VBG Total CO2 VBG O2 Sat (Calc) VBG Base Excess VBG Potassium Glucose Lactate Sodium Potassium Chloride Carbon Dioxide Anion Gap BUN Creatinine Est GFR ( Amer) Est GFR (Non-Af Amer) Random Glucose Lactic Acid 1.5 Calcium Phosphorus Magnesium Total Bilirubin AST ALT Alkaline Phosphatase Total Protein Albumin Globulin Albumin/Globulin Ratio Amylase Lipase Procalcitonin Venous Blood Potassium Urine Color Yellow Urine Clarity Hazy Urine pH 5.0 Ur Specific [place] 1.018 Urine Protein 1+ H Urine Glucose (UA) 2+ H Urine Ketones Negative Urine Blood 1+ H Urine Nitrate Negative Urine Bilirubin Negative Urine Urobilinogen Normal Ur Leukocyte Esterase Trace Urine WBC (Auto) 14 H Urine RBC (Auto) 5 H Ur Squamous Epith Cells 1 Amorphous Sediment Few H Influenza Typ A,B (EIA) Ur L.pneumophila Ag Negative RSV Antigen 10/28/18 10/28/18 07:05 07:05 WBC 10.1 RBC 3.18 L Hgb 10.6 L Hct 31.3 L MCV 98.2 MCH 33.3 H MCHC 33.9 RDW 14.1 Plt Count 158 MPV 9.5 Neut % (Auto) 85.1 H Lymph % (Auto) 6.3 L Mckean % (Auto) 4.9 Eos % (Auto) 3.4 Baso % (Auto) 0.3 Neut # (Auto) 8.6 H Lymph # (Auto) 0.6 L Mckean # (Auto) 0.5 Eos # (Auto) 0.3 Baso # (Auto) 0.0 Neutrophils % (Manual) 80 H Band Neutrophils % 7 H Lymphocytes % (Manual) 5 L Monocytes % (Manual) 3 Eosinophils % (Manual) 5 H Platelet Estimate Normal RBC Morphology Hypochromasia (manual) Slight Poikilocytosis (manual Slight Anisocytosis (manual) Slight PT INR APTT pO2 VBG pH VBG pCO2 VBG HCO3 VBG Total CO2 VBG O2 Sat (Calc) VBG Base Excess VBG Potassium Glucose Lactate Sodium 133 Potassium 3.1 L Chloride 103 Carbon Dioxide 19 L Anion Gap 14 BUN 21 H Creatinine 0.7 Est GFR ( Amer) > 60 Est GFR (Non-Af Amer) > 60 Random Glucose 102 Lactic Acid Calcium 7.8 L Phosphorus 2.2 L Magnesium 2.0 Total Bilirubin 0.4 AST 29 ALT 44 Alkaline Phosphatase 153 H Total Protein 5.5 L Albumin 2.6 L D Globulin 2.9 Albumin/Globulin Ratio 0.9 L Amylase Lipase Procalcitonin Venous Blood Potassium Urine Color Urine Clarity Urine pH Ur Specific [place] Urine Protein Urine Glucose (UA) Urine Ketones Urine Blood Urine Nitrate Urine Bilirubin Urine Urobilinogen Ur Leukocyte Esterase Urine WBC (Auto) Urine RBC (Auto) Ur Squamous Epith Cells Amorphous Sediment Influenza Typ A,B (EIA) Ur L.pneumophila Ag RSV Antigen Assessment & Plan (1) Fever Status: Acute - Assessment and Plan (Free Text) Assessment: complex PMH with pneumonia cultures pending IV antibiotics in progress Plan: Being treated as HCAP consider de-escaltion of rx once cultures available
--- NOTE | 2018-10-28 17:58 | CARD ---
APPROVED REPORT Date of service: 10/27/2018 EKG Measurement Heart [id number] <Conclusion> Normal sinus rhythm Nonspecific T wave abnormality Abnormal ECG
--- NOTE | 2018-10-28 19:45 | CP.PCM.PN ---
Subjective - Date & Time of Evaluation Date of Evaluation: 10/28/18 Time of Evaluation: 09:30 - Subjective Subjective: PGY-[address] Mahoney service Patient is seen and examined by bedside. Patient has been complaining of sweating and difficulty sleeping. Patient reports 3 soft bowel movements, not described as diarrhea. Patient continues to feel weak in her legs and arms, as well as coughing green sputum. Patient denies fever, chills, chest pain, shortness of breath, abdominal pain, n/v/d/c or urinary symptoms. Objective - Vital Signs/Intake and Output Vital Signs (last 24 hours): Temp Pulse Resp BP Pulse Ox 97.6 F 92 H 20 128/72 98 10/28/18 15:00 10/28/18 15:00 10/28/18 15:00 10/28/18 15:00 10/28/18 15:00 - Medications Medications: Current Medications Acetylcysteine (Acetylcysteine 20%) 4 ml INH RQ6 [facility] Last Admin: 10/28/18 02:26 Dose: 4 ml Albuterol/Ipratropium (Duoneb 3 Mg/0.5 Mg (3 Ml) Ud) 3 ml INH RQ8 [facility] Guaifenesin (Robitussin) 200 mg PO Q4H PRN PRN Reason: Cough and congestion Guaifenesin/Dextromethorphan (Robitussin Dm) 5 ml PO QPM PRN PRN Reason: Cough Last Admin: 10/28/18 10:13 Dose: 5 ml Heparin Sodium (Porcine) (Heparin) 5,000 units SC Q12 [facility] Last Admin: 10/28/18 10:13 Dose: 5,000 units Vancomycin/Sodium Chloride (Vancomycin 1 Gm/Ns 200 Ml) 1 gm in 200 mls @ 133 mls/hr IVPB Q12H [facility]; Protocol Stop: 11/01/18 17:01 Last Admin: 10/28/18 18:24 Dose: 133 mls/hr Imipenem/Cilastatin Sodium 500 (mg/ Sodium Chloride) 100 mls @ 100 mls/hr IVPB Q6H [facility]; Protocol Last Admin: 10/28/18 17:17 Dose: 100 mls/hr Lactobacillus Acidophilus (Bacid Acidophilus) 1 cap PO BID [facility] Last Admin: 10/28/18 17:18 Dose: 1 cap Pantoprazole Sodium (Protonix Ec Tab) 40 mg PO DAILY [facility] Last Admin: 10/28/18 10:13 Dose: 40 mg Pramipexole Dihydrochloride (Mirapex) 0.5 mg PO DAILY [facility] Last Admin: 10/28/18 10:13 Dose: 0.5 mg - Labs Labs: 10/28/18 07:05 10/28/18 07:05 PT 17.8 SECONDS (9.7-12.2) H 10/27/18 12:15 INR 1.6 10/27/18 12:15 APTT 33 SECONDS (21-34) 10/27/18 12:15 - Constitutional Appears: Non-toxic, No Acute Distress - Head Exam Head Exam: ATRAUMATIC, NORMAL INSPECTION, NORMOCEPHALIC - Eye Exam Eye Exam: EOMI, Normal appearance, PERRL - ENT Exam ENT Exam: Mucous Membranes Moist, Normal Exam - Neck Exam Neck Exam: Full ROM, Normal Inspection - Respiratory Exam Respiratory Exam: NORMAL BREATHING PATTERN. absent: Accessory Muscle Use, Wheezes, Respiratory Distress Additional comments: crackles noticed on left and right lung bases, louder auscultation of crackles on left lung base - Cardiovascular Exam Cardiovascular Exam: REGULAR RHYTHM, +S1, +S2 - GI/Abdominal Exam GI & Abdominal Exam: Soft, Normal Bowel Sounds. absent: Distended, Tenderness - Extremities Exam Extremities Exam: Full ROM, Normal Inspection - Neurological Exam Neurological Exam: Alert, Awake, Oriented x3 - Psychiatric Exam Psychiatric exam: Normal Affect, Normal Mood - Skin Skin Exam: Dry, Intact, Normal Color, Warm Assessment and Plan - Assessment and Plan (Free Text) Plan: Multifocal Pneumonia Imaging: - CXR: Interval appearance of diffuse reticular opacities and prominent lung markings more prominent in the lower lobes since the previous exam. Possible small left pleural effusion. - Chest CT: Patchy ground-glass opacities and diffuse interstitial septal thickening may represent pneumonitis or pulmonary edema/congestion. Left lung base atelectasis. Small bilateral pleural effusion. Mildly enlarged mediastinal lymph nodes. Management: - Labs sent out for atypicals, flu negative - Legionella urine test - F/U - Blood, Urine, and Sputum cultures- no growth after 24 hours (blood cx), no growth urine, sputum few gram positive cocci - Maintanence fluids at 100cc/hr, will monitor to prevent from a fluid overload - Primaxin Q6H, vanco Q12 (10/27/18) follow up vanco trough on 10/29/18 (prior to 4th dose) - Robitussin PRN for cough, robitussin DM at night as needed - Duonebs Q8H [facility] - Echo ordered - for findings of pulmonary edema/congestion/possible fluid overload - f/u official results Parkinson's - Resumed Mirapex hypokalemia - 10/28 3.1 from 3.2 - replaced with K-dur 40meq x1 dose - check labs in am Ulcerative Colitis - will continue to monitor for bloody diarrhea Recent Admission for C.Diff - c.diff negative on this admission Prophylactic Measures - GI PPX: Protonix, probiotics - DVT PPX: SCDs, Hep Q12 - PT Eval - pending to confirm home medication with patient's pharmacy Plan discuss with Dr Maru Daly
[2018-10-29] MEDS: Acetylcysteine 20% Inhal Soln (4ml) INH SCH ×4 (01:05→20:36)
[2018-10-29] MEDS: Albuterol-Ipratrop 3 mg / 0.5 (3 ml) UD INH SCH ×5 (01:05→20:36)
[2018-10-29 04:43] LABS: BASO % 0.4 % (0.0-2.0); EOS # 0.2 K/uL (0.0-0.7); EOS % 1.9 % (0.0-4.0); HEMOGLOBIN 10.4 g/dL (11.0-16.0); LYMPH # 1.1 K/uL (1.0-4.3); LYMPH % 12.3 % (20.0-40.0); MEAN CELL VOLUME 96.1 fL (81.0-99.0); MEAN CORPUSCULAR HEMOGLOBIN 32.7 pg (27.0-31.0); MEAN PLATELET VOLUME 8.8 fL (7.2-11.7); MONO # 1.1 K/uL (0.0-0.8); MONO % 11.9 % (0.0-10.0); NEUT # 6.8 K/uL (1.8-7.0); NEUT % 73.5 % (50.0-75.0); RBC 3.19 Mil/uL (3.80-5.20); RED CELL DISTRIBUTION WIDTH 14.2 % (11.5-14.5); WHITE BLOOD COUNT 9.3 K/uL (4.8-10.8)
[2018-10-29 05:08] LABS: ALB/GLOB RATIO 0.9 (1.0-2.1); ALBUMIN 2.7 g/dL (3.5-5.0); ALT/SGPT 39 U/L (9-52); AST/SGOT 19 U/L (14-36); BLOOD UREA NITROGEN 12 mg/dL (7-17); CALCIUM 8.2 mg/dl (8.6-10.4); GFR NON-AFRICAN AMERICAN > 60
--- NOTE | 2018-10-29 05:11 | PCM.RRT ---
[facility] Nurses Assessment - Situation Date: 10/29/18 Time [facility] was called: 04:40 [facility] Location:: 6T Med/Surg [facility] Reason for Call: O2 Saturation below 90% [facility] Called By: RN - IV IV Inserted during [facility]?: No New IV Insertion Tolerance: Excellent I.Reason for [facility] - A) Acute Change in Patient: (Select all that apply): Acute change in SpO2 less - Neurological Status (Select all that apply): Alert, Responsive, Follows Commands - Respiratory Oxygen Delivery Method: Non Rebreather @% - Head Head Exam: ATRAUMATIC, NORMOCEPHALIC - Eyes Eye Exam: EOMI. absent: Conjunctival injection, Periorbital swelling - Respiratory Exam Respiratory Exam: Decreased Breath Sounds. absent: Rales, Rhonchi, Wheezes, Respiratory Distress, Stridor - Cardiovascular Exam Cardiovascular Exam: REGULAR RHYTHM, +S1, +S2. absent: Gallop, Rubs, Murmur - GI/Abdominal Exam GI & Abdominal Exam: Soft, Normal Bowel Sounds. absent: Tenderness - Neurological Exam Neurological Exam: Alert, Awake, Oriented x3 - Extremities Exam Extremities Exam: Normal Capillary Refill, Normal Inspection Plan - Assessment of Findings&Treatment Plan Rapid called after patient appeared to have difficulty breathing. Patient was initially on room air, then put 2L NC on herself. Found to have O2 saturation in high 80s on 2L NC. Initial vitals: Temp 99.2 oral, HR 103 BP 114/68 Patient was placed on 100% NRB with improvement of O2 sat to 100% Attempted to placed on Venti mask, however O2 sat only at 92% Patient placed back on 100% NRB mask, with saturation back up to 99% Patient continued to feel febrile, so rectal temp taken Temp 101.0 Ibuprofen 400mg PO given. Final vitals BP 121/70 HR 107 Sat on 100% on NRB mask VBG shock panel ordered. Lactate 1.3, K 3.2. Started KCl 40mEq started. Case discussed with Dr. Megan Guerrero, PGY1
[2018-10-29] MEDS ORDERED: Aluminum Hydroxide/Magnesium Hydroxide Susp (30 mL) PO ONE (05:15)
[2018-10-29 05:30] LABS: VENOUS BLOOD GAS BASE EXCESS -2.3 mmol/L (0.0-2.0); VENOUS BLOOD GAS PCO2 32 mmHg (40-60); VENOUS BLOOD GAS PO2 49 mm/Hg (30-55); VENOUS BLOOD PH 7.43 (7.32-7.43)
[2018-10-29] MEDS: Vancomycin 1 gm/NS 200 ml 1 GM/200 ML BAG IVPB SCH ×2 (05:41→16:30)
--- NOTE | 2018-10-29 07:56 | CP.PCM.PN ---
Subjective - Date & Time of Evaluation Date of Evaluation: 10/29/18 Time of Evaluation: 07:55 - Subjective Subjective: PGY-[address] Mahoney service Patient is seen and examined at bedside. Patient states feeling the same, not complaining of shortness of breath at the moment. Patient felt short of breath earlier in the morning and desaturated to 86-88% on room air. Patient was placed on nonrebreather mask which increased O2 to 99%. Patient states did not have a bowel movement since yesterday and denies any other episode of loose stools. Denies fever, chills, shortness of breath, chest pain, abdominal pain, nausea, vomiting, diarrhea, constipation, urinary symptoms or leg pain/swelling. Objective - Vital Signs/Intake and Output Vital Signs (last 24 hours): Temp Pulse Resp BP Pulse Ox 97.9 F 110 H 20 122/72 93 L 10/29/18 04:00 10/28/18 23:20 10/28/18 23:20 10/28/18 23:20 10/28/18 23:20 Intake and Output: 10/29/18 10/29/18 06:59 18:59 Intake Total 250 Balance 250 - Medications Medications: Current Medications Acetylcysteine (Acetylcysteine 20%) 4 ml INH RQ6 ELLIOTT Last Admin: 10/29/18 01:05 Dose: 4 ml Albuterol/Ipratropium (Duoneb 3 Mg/0.5 Mg (3 Ml) Ud) 3 ml INH RQ8 ELLIOTT Last Admin: 10/29/18 01:05 Dose: 3 ml Guaifenesin (Robitussin) 200 mg PO Q4H PRN PRN Reason: Cough and congestion Guaifenesin/Dextromethorphan (Robitussin Dm) 5 ml PO QPM PRN PRN Reason: Cough Last Admin: 10/28/18 10:13 Dose: 5 ml Heparin Sodium (Porcine) (Heparin) 5,000 units SC Q12 ELLIOTT Last Admin: 10/28/18 22:40 Dose: 5,000 units Vancomycin/Sodium Chloride (Vancomycin 1 Gm/Ns 200 Ml) 1 gm in 200 mls @ 133 mls/hr IVPB Q12H ELLIOTT; Protocol Stop: 11/01/18 17:01 Last Admin: 10/29/18 05:41 Dose: 133 mls/hr Imipenem/Cilastatin Sodium 500 (mg/ Sodium Chloride) 100 mls @ 100 mls/hr IVPB Q6H ELLIOTT; Protocol Last Admin: 10/29/18 04:22 Dose: 100 mls/hr Potassium Chloride (Potassium Chloride 20 Meq/100 Ml) 20 meq in 100 mls @ 50 mls/hr IVPB Q2 E[facility]IOTT Stop: 10/29/18 11:59 Lactobacillus Acidophilus (Bacid Acidophilus) 1 cap PO BID E[facility]OTT Last Admin: 10/28/18 17:18 Dose: 1 cap Pantoprazole Sodium (Protonix Ec Tab) 40 mg PO DAILY [facility]OTT Last Admin: 10/28/18 10:13 Dose: 40 mg Pramipexole Dihydrochloride (Mirapex) 0.5 mg PO DAILY [facility] Last Admin: 10/28/18 10:13 Dose: 0.5 mg - Labs Labs: 10/29/18 04:38 10/29/18 04:38 PT 17.8 SECONDS (9.7-12.2) H 10/27/18 12:15 INR 1.6 10/27/18 12:15 APTT 33 SECONDS (21-34) 10/27/18 12:15 - Constitutional Appears: No Acute Distress - Head Exam Head Exam: ATRAUMATIC, NORMAL INSPECTION, NORMOCEPHALIC - Eye Exam Eye Exam: EOMI, Normal appearance - ENT Exam ENT Exam: Mucous Membranes Moist, Normal Exam - Neck Exam Neck Exam: Full ROM, Normal Inspection - Respiratory Exam Respiratory Exam: Rhonchi, NORMAL BREATHING PATTERN. absent: Accessory Muscle Use, Respiratory Distress Additional comments: crackles on both left and right lung bases. - Cardiovascular Exam Cardiovascular Exam: Tachycardia, REGULAR RHYTHM, +S1, +S2 - GI/Abdominal Exam GI & Abdominal Exam: Soft, Normal Bowel Sounds. absent: Distended, Tenderness - Extremities Exam Extremities Exam: Full ROM, Normal Capillary Refill, Normal Inspection. absent: Calf Tenderness, Pedal Edema, Tenderness - Back Exam Back Exam: NORMAL INSPECTION - Neurological Exam Neurological Exam: Alert, Awake, CN II-XII Intact, Oriented x3 - Psychiatric Exam Psychiatric exam: Normal Affect, Normal Mood - Skin Skin Exam: Dry, Intact, Normal Color, Warm Assessment and Plan - Assessment and Plan (Free Text) Plan: Multifocal Pneumonia Sepsis - CXR: Interval appearance of diffuse reticular opacities and prominent lung markings more prominent in the lower lobes since the previous exam. Possible small left pleural effusion. - Chest CT: Patchy ground-glass opacities and diffuse interstitial septal thickening may represent pneumonitis or pulmonary edema/congestion. Left lung base atelectasis. Small bilateral pleural effusion. Mildly enlarged mediastinal lymph nodes. -Sepsis criteria met: on admission, febrile, tachycardic, elevated WBC at 16.2, suspected infection 10/29 in am - febrile, tachycardic, tachypnic, no elevated WBC, suspected infection - cultures continue to be negative Management: - Labs sent out for atypicals, flu negative - Legionella urine test - negative - Blood, Urine, and Sputum cultures- no growth after 48 hours (blood cx), no growth urine, sputum few gram positive cocci - Primaxin Q6H, vanco Q12 (10/27/18) - Vanco trough - 12.1 - Robitussin PRN for cough, robitussin DM at night as needed - Duonebs Q4H ELLIOTT - Echo ordered - left ventricle systolic function normal, EF is 65-70%, transmitral doppler flow pattern is grade I abnormal relaxation patterns, there is moderate severe pulmonary hypertension. 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 had a long standing history of smoking, from lung CA. Parkinson's - continue Mirapex hypokalemia - 10/29 3.3 - replaced with KCl 40mEq IV - check labs in am Ulcerative Colitis - no bloody stools will continue to monitor for bloody diarrhea Recent Admission for C.Diff - c.diff negative on this admission - no loose stools reported hx of depression - started home med mirtazapine 15mg PO QHS and Nortryptyline HCL 50mg PO HS Prophylactic Measures - GI PPX: Protonix, probiotics - DVT PPX: SCDs, Hep Q12 - PT Eval Plan discuss with Dr Maru Daly
[2018-10-29] MEDS: Pantoprazole 40 mg EC Tab PO SCH (09:56)
[2018-10-29] MEDS: Lactobacillus Acidophilus 500 MU Cap PO SCH ×2 (09:56→18:00)
--- NOTE | 2018-10-29 11:26 | CP.PCM.PN ---
Subjective - Date & Time of Evaluation Date of Evaluation: 10/29/18 Time of Evaluation: 08:00 - Subjective Subjective: afeb nad less cough and sob no fever Objective - Vital Signs/Intake and Output Vital Signs (last 24 hours): Temp Pulse Resp BP Pulse Ox 98.7 F 96 H 20 132/73 95 10/29/18 08:00 10/29/18 08:00 10/29/18 08:00 10/29/18 08:00 10/29/18 08:00 Intake and Output: 10/29/18 10/29/18 06:59 18:59 Intake Total 250 Balance 250 - Medications Medications: Current Medications Acetylcysteine (Acetylcysteine 20%) 4 ml INH RQ6 ELLIOTT Last Admin: 10/29/18 09:07 Dose: 4 ml Albuterol/Ipratropium (Duoneb 3 Mg/0.5 Mg (3 Ml) Ud) 3 ml INH RQ8 ELLIOTT Last Admin: 10/29/18 09:07 Dose: 3 ml Guaifenesin (Robitussin) 200 mg PO Q4H PRN PRN Reason: Cough and congestion Guaifenesin/Dextromethorphan (Robitussin Dm) 5 ml PO QPM PRN PRN Reason: Cough Last Admin: 10/28/18 10:13 Dose: 5 ml Heparin Sodium (Porcine) (Heparin) 5,000 units SC Q12 E[facility]IOTT Last Admin: 10/29/18 09:59 Dose: 5,000 units Vancomycin/Sodium Chloride (Vancomycin 1 Gm/Ns 200 Ml) 1 gm in 200 mls @ 133 mls/hr IVPB Q12H E[facility]IOTT; Protocol Stop: 11/01/18 17:01 Last Admin: 10/29/18 05:41 Dose: 133 mls/hr Imipenem/Cilastatin Sodium 500 (mg/ Sodium Chloride) 100 mls @ 100 mls/hr IVPB Q6H E[facility]IOTT; Protocol Last Admin: 10/29/18 04:22 Dose: 100 mls/hr Potassium Chloride (Potassium Chloride 20 Meq/100 Ml) 20 meq in 100 mls @ 50 mls/hr IVPB Q2 E[facility]IOTT Stop: 10/29/18 11:59 Last Admin: 10/29/18 08:44 Dose: 50 mls/hr Lactobacillus Acidophilus (Bacid Acidophilus) 1 cap PO BID E[facility]OTT Last Admin: 10/29/18 09:56 Dose: 1 cap Mirtazapine (Remeron) 15 mg PO HS ELLIOTT Nortriptyline HCl (Pamelor) 50 mg PO HS ELLIOTT Pantoprazole Sodium (Protonix Ec Tab) 40 mg PO DAILY [facility] Last Admin: 10/29/18 09:56 Dose: 40 mg Pramipexole Dihydrochloride (Mirapex) 0.5 mg PO DAILY [facility] Last Admin: 10/29/18 09:56 Dose: 0.5 mg - Labs Labs: 10/29/18 04:38 10/29/18 04:38 PT 17.8 SECONDS (9.7-12.2) H 10/27/18 12:15 INR 1.6 10/27/18 12:15 APTT 33 SECONDS (21-34) 10/27/18 12:15 - Constitutional Appears: Non-toxic, Cachectic, Chronically Ill - Head Exam Head Exam: NORMOCEPHALIC - Eye Exam Eye Exam: absent: Scleral icterus - ENT Exam ENT Exam: Mucous Membranes Dry - Neck Exam Neck Exam: absent: Lymphadenopathy - Respiratory Exam Respiratory Exam: Decreased Breath Sounds - Cardiovascular Exam Cardiovascular Exam: REGULAR RHYTHM - GI/Abdominal Exam GI & Abdominal Exam: Distended - Rectal Exam Rectal Exam: Deferred - Exam Exam: NORMAL INSPECTION - Extremities Exam Extremities Exam: absent: Pedal Edema - Back Exam Back Exam: absent: CVA tenderness (L), CVA tenderness (R) - Neurological Exam Neurological Exam: Alert, Awake Assessment and Plan (1) Fever Status: Acute - Assessment and Plan (Free Text) Assessment: cultures neg thus far rx as exac copd/chf Plan: UTI
[2018-10-29] MEDS ORDERED: Influenza Vaccine 60 MCG/0.5 ML SYR (3 yr & up) IM ONE (12:00)
[2018-10-29] MEDS ORDERED: Pneumococcal 23-Valent Vaccine IM ONE (12:00)
--- NOTE | 2018-10-29 17:49 | CP.PCM.CON ---
History of Present Illness - History of Present Illness History of Present Illness: reason for consultation: shortness of breath 77-year-old female with history of Parkinson's disease, DVT, ulcerative colitis, C. difficile were presented to the emergency room with fever and chills and productive cough. Patient was treated with antibiotics and cough medicine without relief. CAT scan of the chest done showed bilateral infiltrates. Patient complaining of generalized weakness. Denies chest pain, denies abdominal pain PSHx: EGD, Colonoscopy, tubal ligation All: NKDA SHx: quit smoking 15yrs ago, former 1/2ppd; social EtOH; denies drug use FHx: Noncontributory Review of Systems - Review of Systems All systems: reviewed and no additional remarkable complaints except (shortness of breath and productive cough) Past Patient History - Infectious Disease Hx of Infectious Diseases: None - Tetanus Immunizations Tetanus Immunization: Unknown - Past Medical History & Family History Past Medical History?: Yes - Past Social History Smoking Status: Former Smoker - CARDIAC Hx Cardiac Disorders: Yes Hx Peripheral Vascular Disease: Yes (DVT) - PULMONARY Hx Respiratory Disorders: Yes (USED TO SMOKE CIGARETTES 1/2 PPD.15 YRS AGO.SMOKED SOCIALLY.) - NEUROLOGICAL Hx Neurological Disorder: Yes (TREMORS MAINLY TO LEFT HAND. PT ON MEDICATION FOR PARKINSON'S) - HEENT Hx HEENT Problems: No - RENAL Hx Chronic Kidney Disease: No Hx Kidney Stones: Yes (09-25-18 HAS A 2 MM STONE.) - ENDOCRINE/METABOLIC Hx Endocrine Disorders: No - HEMATOLOGICAL/ONCOLOGICAL Hx Human Immunodeficiency Virus (HIV): No - INTEGUMENTARY Hx Dermatological Problems: Yes Other/Comment: 09-25-18 SLIGHT REDDENED RASH TO RIGHT FLANK AREA. HAS PAIN. R/O SHINGLES. - MUSCULOSKELETAL/RHEUMATOLOGICAL Hx Musculoskeletal Disorders: Yes Hx Falls: Yes - GASTROINTESTINAL Hx Crohn's Disease: Yes Hx Diverticulitis: No Hx Gall Bladder Disease: No Hx Gastritis: No Hx Pancreatitis: No - GENITOURINARY/GYNECOLOGICAL Hx Genitourinary Disorders: Yes (Kidney stones last 2013,TUBAL LIGATION. C.S) - PSYCHIATRIC Hx Depression: No Hx Substance Use: No - SURGICAL HISTORY Hx Surgeries: Yes (BILATERAL CATARACT SX, TONSILLECTOMY,C/S,TUBAL LIGATION, KIDNEY STONE.) - ANESTHESIA Hx Anesthesia: No Hx Anesthesia Reactions: No Hx Malignant Hyperthermia: No Meds Allergies/Adverse Reactions: Allergies Allergy/AdvReac Type Severity Reaction Status Date / Time No Known Allergies Allergy Verified 10/27/18 10:44 - Medications Medications: Current Medications Acetylcysteine (Acetylcysteine 20%) 4 ml INH RQ6 ELLIOTT Last Admin: 10/29/18 13:57 Dose: 4 ml Albuterol/Ipratropium (Duoneb 3 Mg/0.5 Mg (3 Ml) Ud) 3 ml INH RQ4 ELLIOTT Last Admin: 10/29/18 13:58 Dose: 3 ml Guaifenesin (Robitussin) 200 mg PO Q4H PRN PRN Reason: Cough and congestion Guaifenesin/Dextromethorphan (Robitussin Dm) 5 ml PO QPM PRN PRN Reason: Cough Last Admin: 10/28/18 10:13 Dose: 5 ml Heparin Sodium (Porcine) (Heparin) 5,000 units SC Q12 E[facility]IOTT Last Admin: 10/29/18 09:59 Dose: 5,000 units Vancomycin/Sodium Chloride (Vancomycin 1 Gm/Ns 200 Ml) 1 gm in 200 mls @ 133 mls/hr IVPB Q12H ELLIOTT; Protocol Stop: 11/01/18 17:01 Last Admin: 10/29/18 05:41 Dose: 133 mls/hr Imipenem/Cilastatin Sodium 500 (mg/ Sodium Chloride) 100 mls @ 100 mls/hr IVPB Q6H ELLIOTT; Protocol Last Admin: 10/29/18 12:05 Dose: 100 mls/hr Lactobacillus Acidophilus (Bacid Acidophilus) 1 cap PO BID [facility] Last Admin: 10/29/18 09:56 Dose: 1 cap Mirtazapine (Remeron) 15 mg PO HS E[facility]IOTT Nortriptyline HCl (Pamelor) 50 mg PO HS ELLIOTT Pantoprazole Sodium (Protonix Ec Tab) 40 mg PO DAILY [facility] Last Admin: 10/29/18 09:56 Dose: 40 mg Pramipexole Dihydrochloride (Mirapex) 0.5 mg PO DAILY [facility] Last Admin: 10/29/18 09:56 Dose: 0.5 mg Physical Exam - Head Exam Head Exam: ATRAUMATIC, NORMOCEPHALIC - ENT Exam ENT Exam: Mucous Membranes Moist - Neck Exam Neck exam: Positive for: Normal Inspection - Respiratory Exam Respiratory Exam: Rales - Cardiovascular Exam Cardiovascular Exam: REGULAR RHYTHM - GI/Abdominal Exam GI & Abdominal Exam: Normal Bowel Sounds, Soft - Extremities Exam Extremities exam: Positive for: normal inspection - Neurological Exam Neurological exam: Alert, Oriented x3 Results - Vital Signs Recent Vital Signs: Last Vital Signs Temp 98.7 F 10/29/18 08:00 Pulse 96 H 10/29/18 08:00 Resp 20 10/29/18 08:00 BP 132/73 10/29/18 08:00 Pulse Ox 95 10/29/18 08:00 - Labs Result Diagrams: 10/29/18 04:38 10/29/18 04:38 Labs: Laboratory Results - last 24 hr 10/28/18 10/29/18 10/29/18 19:25 04:38 04:38 WBC 9.3 RBC 3.19 L Hgb 10.4 L Hct 30.7 L MCV 96.1 D MCH 32.7 H MCHC 34.0 RDW 14.2 Plt Count 169 MPV 8.8 Neut % (Auto) 73.5 Lymph % (Auto) 12.3 L Hand % (Auto) 11.9 H Eos % (Auto) 1.9 Baso % (Auto) 0.4 Neut # (Auto) 6.8 Lymph # (Auto) 1.1 Hand # (Auto) 1.1 H Eos # (Auto) 0.2 Baso # (Auto) 0.0 pO2 VBG pH VBG pCO2 VBG HCO3 VBG Total CO2 VBG O2 Sat (Calc) VBG Base Excess VBG Potassium Glucose Lactate Sodium 134 Potassium 3.3 L Chloride 106 Carbon Dioxide 22 Anion Gap 10 BUN 12 Creatinine 0.6 L Est GFR ( Amer) > 60 Est GFR (Non-Af Amer) > 60 Random Glucose 113 H Calcium 8.2 L Phosphorus 2.8 Magnesium 1.7 Total Bilirubin 0.5 AST 19 ALT 39 Alkaline Phosphatase 178 H Total Protein 5.8 L Albumin 2.7 L Globulin 3.1 Albumin/Globulin Ratio 0.9 L Procalcitonin Venous Blood Potassium Vancomycin Trough Ur L.pneumophila Ag Negative 10/29/18 10/29/18 10/29/18 04:38 04:38 05:15 WBC RBC Hgb Hct MCV MCH MCHC RDW Plt Count MPV Neut % (Auto) Lymph % (Auto) Hand % (Auto) Eos % (Auto) Baso % (Auto) Neut # (Auto) Lymph # (Auto) Hand # (Auto) Eos # (Auto) Baso # (Auto) pO2 49 VBG pH 7.43 VBG pCO2 32 L VBG HCO3 22.8 VBG Total CO2 22.2 VBG O2 Sat (Calc) 89.8 H VBG Base Excess -2.3 L VBG Potassium 3.2 L Glucose 111 H Lactate 1.3 Sodium 135.0 Potassium Chloride 108.0 H Carbon Dioxide Anion Gap BUN Creatinine Est GFR ( Amer) Est GFR (Non-Af Amer) Random Glucose Calcium Phosphorus Magnesium Total Bilirubin AST ALT Alkaline Phosphatase Total Protein Albumin Globulin Albumin/Globulin Ratio Procalcitonin 2.05 H Venous Blood Potassium 3.2 L Vancomycin Trough 12.1 H Ur L.pneumophila Ag Assessment & Plan (1) Pneumonia Assessment and Plan: pneumonia versus pneumonitis Continue antibiotics Start steroids Continue present treatment Status: Acute (2) Ulcerative colitis Status: Acute
--- NOTE | 2018-10-29 19:22 | CARD ---
APPROVED REPORT Date of service: 10/29/2018 EXAM: Two-dimensional and M-mode echocardiogram with Doppler and color Doppler. Other Information Quality : GoodRhythm : INDICATION Dyspnea FEVER 2D DIMENSIONS IVSd1.0 (0.7-1.1cm)LVDd3.2 (3.9-5.9cm) PWd1.0 (0.7-1.1cm)LA [id number] (18-58mL) LVDs2.3 (2.5-4.0cm)FS (%) 28.9 % LVEF (%)56.9 (>50%)LVEF (Reynoso's)60.10 % M-Mode DIMENSIONS Left Atrium (MM)3.20 (2.5-4.0cm)IVSd0.99 (0.7-1.1cm) Aortic Root3.20 (2.2-3.7cm)LVDd3.95 (4.0-5.6cm) Aortic Cusp Exc.1.80 (1.5-2.0cm)PWd0.80 (0.7-1.1cm) FS (%) 40 %LVDs2.38 (2.0-3.8cm) LVEF (%)71 (>50%) Mitral Valve MV E Kfgdbfpn23.5cm/sMV A Zkbtnxeg900.1cm/sE/A ratio0.8 TDI Lateral E' Peak V9.84cm/sMedial E' Peak V5.00cm/sE/Lateral E'8.3 E/Medial E'16.3 Tricuspid Valve TR Peak [id number]/sTR Peak Gr.[id number] LEFT VENTRICLE The left ventricle is normal size. There is normal left ventricular wall thickness. Left ventricle systolic function is normal. The Ejection Fraction is 65-70%. There is normal LV segmental wall motion. Transmitral Doppler flow pattern is Grade I-abnormal relaxation pattern. There is no ventricular septal defect visualized. RIGHT VENTRICLE The right ventricle is normal size. The right ventricular systolic function is normal. ATRIA The left atrium is mildly dilated. The right atrium size is normal. AORTIC VALVE The aortic valve is mildly sclerotic. The aortic valve is tri-cuspid. No aortic regurgitation is present. There is no aortic valvular stenosis. MITRAL VALVE The mitral valve is normal in structure. There is no evidence of mitral valve prolapse. There is no mitral valve regurgitation noted. TRICUSPID VALVE The tricuspid valve is normal in structure. There is moderate tricuspid regurgitation. Right ventricular systolic pressure is estimated at 50-60 mmHg. There is moderate-severe pulmonary hypertension. PULMONIC VALVE The pulmonary valve is normal in structure. There is trace pulmonic valvular regurgitation. GREAT VESSELS The aortic root is normal in size. The ascending aorta is normal in size. The IVC is normal in size and collapses >50% with inspiration. PERICARDIAL EFFUSION There is no pericardial effusion. <Conclusion> Left ventricle systolic function is normal. The Ejection Fraction is 65-70%. Transmitral Doppler flow pattern is Grade I-abnormal relaxation pattern. There is moderate-severe pulmonary hypertension.
[2018-10-30] MEDS: Acetylcysteine 20% Inhal Soln (4ml) INH SCH ×7 (01:10→23:54)
[2018-10-30] MEDS: Vancomycin 1 gm/NS 200 ml 1 GM/200 ML BAG IVPB SCH ×2 (05:15→18:05)
[2018-10-30] MEDS: Albuterol-Ipratrop 3 mg / 0.5 (3 ml) UD INH SCH ×6 (07:30→23:54)
[2018-10-30] MEDS ORDERED: MethylPREDNISolone 40 mg Vial IVP STA (08:13)
[2018-10-30 09:04] LABS: BASO # 0.1 K/uL (0.0-0.2); BASO % 0.4 % (0.0-2.0); EOS # 0.4 K/uL (0.0-0.7); EOS % 3.2 % (0.0-4.0); HEMOGLOBIN 10.7 g/dL (11.0-16.0); LYMPH # 1.9 K/uL (1.0-4.3); LYMPH % 15.7 % (20.0-40.0); MEAN CELL VOLUME 97.1 fL (81.0-99.0); MEAN CORPUSCULAR HEMOGLOBIN 32.7 pg (27.0-31.0); MEAN CORPUSCULAR HGB CONC 33.7 g/dL (33.0-37.0); MONO # 2.4 K/uL (0.0-0.8); MONO % 19.8 % (0.0-10.0); NEUT # 7.5 K/uL (1.8-7.0); NEUT % 60.9 % (50.0-75.0); NRBC % 0.1 % (0.0-2.0); RBC 3.28 Mil/uL (3.80-5.20); WHITE BLOOD COUNT 12.2 K/uL (4.8-10.8)
[2018-10-30] MEDS: MethylPREDNISolone 40 mg Vial IVP SCH ×2 (09:06→16:20)
[2018-10-30 10:07] LABS: ALB/GLOB RATIO 0.9 (1.0-2.1); ALBUMIN 2.9 g/dL (3.5-5.0); ALT/SGPT 29 U/L (9-52); AST/SGOT 21 U/L (14-36); BLOOD UREA NITROGEN 14 mg/dL (7-17); CALCIUM 8.6 mg/dl (8.6-10.4); GFR NON-AFRICAN AMERICAN > 60
[2018-10-30] MEDS: Lactobacillus Acidophilus 500 MU Cap PO SCH ×2 (10:19→18:04)
[2018-10-30] MEDS ORDERED: Potassium Chloride 20 mEq ER Tab PO ONE (10:19)
[2018-10-30] MEDS: guaiFENesin 600 mg ER Tab PO SCH ×2 (10:19→18:04)
[2018-10-30] MEDS: Pantoprazole 40 mg EC Tab PO SCH (10:19)
[2018-10-30] MEDS ORDERED: Magnesium Sulfate 1 gm in D5W 1 GM/100 ML BAG IVPB ONE (10:34)
--- NOTE | 2018-10-30 11:00 | CP.PCM.PN ---
<Sofia Alvarez - Last Filed: 10/30/18 16:46> Subjective - Date & Time of Evaluation Date of Evaluation: 10/30/18 Time of Evaluation: 08:00 - Subjective Subjective: PGY-1 Medicine Progress Note for Dr. Martin Patient was seen and examined multiple times today at bedside in no acute distress. Nurse reports overnight [employer] for SOB and desaturation. Patient is now stable from that event, however, becomes tachycardic and tachypnic when has supplemental oxygen via mask of any kind placed, which positively reinforcees an oxygen desaturation. Patient does well via NC and is speaking with full sentences and able to express her wishes. Denies chest pain, shortness of breath, abdominal pain, difficulty swallowing. She says she prefers the strawberry flavor of Ensure and would still like to stay on a liquid diet despite the dietary recommendation to increase to soft diet. Objective - Vital Signs/Intake and Output Vital Signs (last 24 hours): Temp Pulse Resp BP Pulse Ox 98.0 F 115 H 35 H 166/65 H 95 10/30/18 07:00 10/30/18 07:00 10/30/18 07:00 10/30/18 07:00 10/30/18 07:00 - Medications Medications: Current Medications Acetylcysteine (Acetylcysteine 20%) 4 ml INH RQ4 [facility] Albuterol/Ipratropium (Duoneb 3 Mg/0.5 Mg (3 Ml) Ud) 3 ml INH RQ4 [facility] Benzonatate (Tessalon Perles) 100 mg PO TID [facility] Last Admin: 10/30/18 10:18 Dose: 100 mg Famotidine (Pepcid) 20 mg PO BID [facility] Guaifenesin (Mucinex La) 600 mg PO BID [facility] Last Admin: 10/30/18 10:19 Dose: 600 mg Heparin Sodium (Porcine) (Heparin) 5,000 units SC Q8 [facility] Vancomycin/Sodium Chloride (Vancomycin 1 Gm/Ns 200 Ml) 1 gm in 200 mls @ 133 mls/hr IVPB Q12H [facility]; Protocol Stop: 11/01/18 17:01 Last Admin: 10/30/18 05:15 Dose: 133 mls/hr Imipenem/Cilastatin Sodium 500 (mg/ Sodium Chloride) 100 mls @ 100 mls/hr IVPB Q6H [facility]; Protocol Last Admin: 10/30/18 10:18 Dose: 100 mls/hr Magnesium Sulfate/Dextrose (Magnesium Sulfate 1 Gm/100 Ml D5w) 1 gm in 100 mls @ 200 mls/hr IVPB ONCE ONE Stop: 10/30/18 11:03 Last Admin: 10/30/18 10:56 Dose: 200 mls/hr Lactobacillus Acidophilus (Bacid Acidophilus) 1 cap PO BID [facility] Last Admin: 10/30/18 10:19 Dose: 1 cap Methylprednisolone (Solu-Medrol) 40 mg IVP Q8H [facility] Last Admin: 10/30/18 09:06 Dose: Not Given Mirtazapine (Remeron) 15 mg PO HS [facility] Last Admin: 10/29/18 22:02 Dose: 15 mg Nicotine (Nicoderm Cq) 1 patch TD DAILY [facility] Last Admin: 10/30/18 10:26 Dose: Not Given Nortriptyline HCl (Pamelor) 50 mg PO HS [facility] Last Admin: 10/29/18 22:02 Dose: 50 mg Pramipexole Dihydrochloride (Mirapex) 0.5 mg PO DAILY [facility] Last Admin: 10/30/18 10:19 Dose: 0.5 mg - Labs Labs: 10/30/18 08:52 10/30/18 08:52 PT 17.8 SECONDS (9.7-12.2) H 10/27/18 12:15 INR 1.6 10/27/18 12:15 APTT 33 SECONDS (21-34) 10/27/18 12:15 - Constitutional Appears: No Acute Distress - Head Exam Head Exam: ATRAUMATIC, NORMOCEPHALIC - Eye Exam Eye Exam: EOMI, Normal appearance - ENT Exam ENT Exam: Mucous Membranes Moist Additional comments: oral mucosa dry 2/2 supplemental oxygen - Respiratory Exam Respiratory Exam: Rhonchi. absent: Wheezes Additional comments: tachypnic in the 30s with accessory muscle use with mask supplemental oxygen (ie. BiPAP, NRB), reduces down to 30s without accessory muscle use with NC - Cardiovascular Exam Cardiovascular Exam: Tachycardia, REGULAR RHYTHM, +S1, +S2 - GI/Abdominal Exam GI & Abdominal Exam: Soft, Normal Bowel Sounds. absent: Tenderness - Extremities Exam Extremities Exam: Normal Capillary Refill Additional comments: peripheral pulses palpable bilaterally (radial, PT) IV access in R AC - Back Exam Back Exam: absent: CVA tenderness (L), CVA tenderness (R) - Neurological Exam Neurological Exam: Alert, Awake, Oriented x3 - Psychiatric Exam Psychiatric exam: Anxious - Skin Skin Exam: Dry, Pallor Assessment and Plan - Assessment and Plan (Free Text) Plan: Multifocal Pneumonia vs. Pneumonitis Sepsis - CXR: Interval appearance of diffuse reticular opacities and prominent lung markings more prominent in the lower lobes since the previous exam. Possible small left pleural effusion. - Chest CT: Patchy ground-glass opacities and diffuse interstitial septal thickening may represent pneumonitis or pulmonary edema/congestion. Left lung base atelectasis. Small bilateral pleural effusion. Mildly enlarged mediastinal lymph nodes. -Sepsis criteria met: on admission, febrile, tachycardic, elevated WBC at 16.2, suspected infection 10/29 in am - febrile, tachycardic, tachypnic, no elevated WBC, suspected infection - cultures continue to be negative Management: - Labs sent out for atypicals, flu negative - Legionella urine test - negative - Blood, Urine, and Sputum cultures- no growth after 72 hours (blood cx), no growth urine, sputum normal oral ashley - Primaxin Q6H, vanco Q12 (10/27/18) - Vanco trough 10/29 - 12.1, next trough 10/31@0430 - Mucinex 600mg po bid - Duonebs Q4H [facility] - Mucomyst 4ml INH q4 with Duonebs - Tessalon Perles 100mg po tid - Solumedrol 40mg IVP q8 - Spiriva 1 puff daily - Echo ordered - left ventricle systolic function normal, EF is 65-70%, transmitral doppler flow pattern is grade I abnormal relaxation patterns, there is moderate severe pulmonary hypertension. - Consult guide Dr Urbano -f/u recs - Consult ID recs Dr. Summers -f/u recs NOTE: patient has a history of smoking of 1/2 pack a day, quitted 15 years ago. had a long standing history of smoking, from lung CA. Parkinson's - continue Mirapex 0.5mg po daily hypokalemia - 10/29 3.3 - replaced with KCl 40mEq IV - check labs in am - replete prn Ulcerative Colitis - no bloody stools will continue to monitor for bloody diarrhea Recent Admission for C.Diff - c.diff negative on this admission - no loose stools reported hx of depression - started home med mirtazapine 15mg PO QHS and Nortryptyline HCL 50mg PO HS Hx of DVT - unknown when DVT Hx - US Doppler LE: neg bilaterally Prophylactic Measures - GI PPX: Pepcid, Bacid - DVT PPX: SCDs, Hep Q8 - Diet: Reg Diet with 3 Ensure Enlive-strawberry - PT/OT Eval - Palliative Care consult: Code status and goals of care Dispo: CM eval for d/c d/w Dr. Veronica Alvarez PGY-1 <Geetha Martin V - Last Filed: 10/30/18 21:05> Objective - Vital Signs/Intake and Output Vital Signs (last 24 hours): Temp Pulse Resp BP Pulse Ox 97.6 F 64 35 H 126/76 20 L 10/30/18 15:00 10/30/18 15:00 10/30/18 07:00 10/30/18 15:00 10/30/18 15:00 - Medications Medications: Current Medications Acetylcysteine (Acetylcysteine 20%) 4 ml INH RQ4 [facility] Last Admin: 10/30/18 19:21 Dose: Not Given Albuterol/Ipratropium (Duoneb 3 Mg/0.5 Mg (3 Ml) Ud) 3 ml INH RQ4 [facility] Last Admin: 10/30/18 19:21 Dose: 3 ml Benzonatate (Tessalon Perles) 100 mg PO TID [facility] Last Admin: 10/30/18 18:04 Dose: 100 mg Famotidine (Pepcid) 20 mg PO BID [facility] Last Admin: 10/30/18 18:04 Dose: 20 mg Guaifenesin (Mucinex La) 600 mg PO BID [facility] Last Admin: 10/30/18 18:04 Dose: 600 mg Heparin Sodium (Porcine) (Heparin) 5,000 units SC Q8 [facility] Last Admin: 10/30/18 13:49 Dose: 5,000 units Vancomycin/Sodium Chloride (Vancomycin 1 Gm/Ns 200 Ml) 1 gm in 200 mls @ 133 mls/hr IVPB Q12H [facility]; Protocol Stop: 11/01/18 17:01 Last Admin: 10/30/18 18:05 Dose: 133 mls/hr Imipenem/Cilastatin Sodium 500 (mg/ Sodium Chloride) 100 mls @ 100 mls/hr IVPB Q6H [facility]; Protocol Last Admin: 10/30/18 16:21 Dose: 100 mls/hr Lactobacillus Acidophilus (Bacid Acidophilus) 1 cap PO BID [facility] Last Admin: 10/30/18 18:04 Dose: 1 cap Methylprednisolone (Solu-Medrol) 40 mg IVP Q8H [facility] Last Admin: 10/30/18 16:20 Dose: 40 mg Mirtazapine (Remeron) 15 mg PO HS [facility] Last Admin: 10/29/18 22:02 Dose: 15 mg Nortriptyline HCl (Pamelor) 50 mg PO HS [facility] Last Admin: 10/29/18 22:02 Dose: 50 mg Pramipexole Dihydrochloride (Mirapex) 0.5 mg PO DAILY [facility] Last Admin: 10/30/18 10:19 Dose: 0.5 mg Tiotropium [place] (Spiriva Inhalation Handihaler Device) 1 inhaler INH DAILY [facility] - Labs Labs: 10/30/18 08:52 10/30/18 08:52 PT 17.8 SECONDS (9.7-12.2) H 10/27/18 12:15 INR 1.6 10/27/18 12:15 APTT 33 SECONDS (21-34) 10/27/18 12:15 Attending/Attestation - Attestation I have personally seen and examined this patient.: Yes I have fully participated in the care of the patient.: Yes I have reviewed all pertinent clinical information, including history, physical exam and plan: Yes Notes (Text): Patient seen, examined and case discussed with day-time resident. patient is on IV abx to cover for sepsis, suspicion for pneumonia; id has recommended for 7 days. Elevated procalcitonin suspected for bacterial cause. patient started on IV steroids today to improve breathing status; patient is being noncompliant for venti/nonway breather; she does desaturate while on nasal cannula. Updated assessment and plan as noted below. Patient noted to be tachycardic in the afternoon. She was asympomatic no complaints. Patient noted hypoxic. Repeat EKG, suspicion for MAT; will f/u cardiology. Multifocal Pneumonia vs. Pneumonitis Sepsis Assessment/plan * Pulmonary Dr. Urbano on case help appreciated * Infectious Disease Dr Summers on case help appreciated * ID recommending for 7 days of therapy * CXR: Interval appearance of diffuse reticular opacities and prominent lung markings more prominent in the lower lobes since the previous exam. Possible small left pleural effusion. * Chest CT: Patchy ground-glass opacities and diffuse interstitial septal thickening may represent pneumonitis or pulmonary edema/congestion. Left lung base atelectasis. Small bilateral pleural effusion. Mildly enlarged mediastinal lymph nodes. * Sepsis criteria met: on admission, febrile, tachycardic, elevated WBC at 16.2, suspected infection * Primaxin 500mg IVPB Q6H (active since 10/27/18) * Vancomycin 1gm IVPB Q12H (active since 10/27/18) * Vancomycin trough: 12.1 (10/29/18); next trough 10/31 * Flu negative, legionella negative, Mycoplasma IGM negative * Normal oral ashley * Urine culture: no growth * Blood culture (10/27/18): no growth after 3 days X2 * Start Solumderol 40mg IV Q8H * Duoneb Q4H * Mucomyst Q4H * Chest physiotherapy * Tesslon perles and Mucinex for supportive care for cough * Patient refusing to use nonway breather/venti mas and does desaturate to upper 80s while on nasal cannula * Patient on IV abx to cover for healthcare associated pneumonia * elevated procalcitonin: 5.00--> 2.05 * Unclear etiology 2. History of Parkinson's Disease Assessment/plan * continue Mirapex 0.5mg PO daily 3. Hypokalemia Assessment/plan * monitor and replete 4. History of Ulcerative Colitis * patient does not have abdominal complaints * C. dif is negative. * Patient sees Dr. Lemus as outpatient; used to take Endocort which she reports she was told she does not need to use by Dr. Lemus * patient has prior admission for C. dif in past 5. Hx of depression * started home med mirtazapine 15mg PO QHS and Nortryptyline HCL 50mg PO HS 6 Unclear if she has had history of DVT; per EMR peripheral neuropathy * We have completed venous doppler which is preliminary negative for acute DVT 7. Tachycardia * Echocardiogram (10/29): left ventrcile systolic function is normal, EF: 65- 70%, moderate to severe pulmonary hypertension * EKG ordered this afternoon due to heart rate in the 170s; patient asymptomatic. Suspicion for MAT given smoking hx, emphysema, and hypoxia given noncompliance on venti/nonway breather; patent does not have known cardiac risk factors. Given dose of Cardizem 5mg IVP X1. * Repeat thyroid studies in AM * Will consult cardiology for further recommendations * Patient strongly advised to use supplement oxygen * Patient does not have acute dvt per prelim doppler and prior 02/27 does not show dvt 8. Prophylactic Measures * GI PPX: Pepcid, Bacid * DVT PPX: SCDs, Hep Q8 * Diet: Reg Diet with 3 Ensure Enlive-strawberry * PT/OT Eval * Palliative Care consult: Code status and goals of care
--- NOTE | 2018-10-30 15:02 | CP.PCM.PN ---
Subjective - Date & Time of Evaluation Date of Evaluation: 10/30/18 Time of Evaluation: 12:30 - Subjective Subjective: 77 year old female with history of parkinson's, DVT, UC, c diff consulted for shortness of breath, pneumonia vs pneumonitis. Feeling better. Denies chest pain, fever/chills, SOB. SpO2 88-89% on NC, keeps removing NC and BiPAP Objective - Vital Signs/Intake and Output Vital Signs (last 24 hours): Temp Pulse Resp BP Pulse Ox 98.0 F 115 H 35 H 166/65 H 95 10/30/18 07:00 10/30/18 07:00 10/30/18 07:00 10/30/18 07:00 10/30/18 07:00 - Medications Medications: Current Medications Acetylcysteine (Acetylcysteine 20%) 4 ml INH RQ4 [facility] Last Admin: 10/30/18 13:52 Dose: 4 ml Albuterol/Ipratropium (Duoneb 3 Mg/0.5 Mg (3 Ml) Ud) 3 ml INH RQ4 [facility] Last Admin: 10/30/18 13:52 Dose: 3 ml Benzonatate (Tessalon Perles) 100 mg PO TID [facility] Last Admin: 10/30/18 13:49 Dose: 100 mg Famotidine (Pepcid) 20 mg PO BID [facility] Guaifenesin (Mucinex La) 600 mg PO BID [facility] Last Admin: 10/30/18 10:19 Dose: 600 mg Heparin Sodium (Porcine) (Heparin) 5,000 units SC Q8 [facility] Last Admin: 10/30/18 13:49 Dose: 5,000 units Vancomycin/Sodium Chloride (Vancomycin 1 Gm/Ns 200 Ml) 1 gm in 200 mls @ 133 mls/hr IVPB Q12H [facility]; Protocol Stop: 11/01/18 17:01 Last Admin: 10/30/18 05:15 Dose: 133 mls/hr Imipenem/Cilastatin Sodium 500 (mg/ Sodium Chloride) 100 mls @ 100 mls/hr IVPB Q6H [facility]; Protocol Last Admin: 10/30/18 10:18 Dose: 100 mls/hr Lactobacillus Acidophilus (Bacid Acidophilus) 1 cap PO BID [facility] Last Admin: 10/30/18 10:19 Dose: 1 cap Methylprednisolone (Solu-Medrol) 40 mg IVP Q8H [facility] Last Admin: 10/30/18 09:06 Dose: Not Given Mirtazapine (Remeron) 15 mg PO HS [facility] Last Admin: 10/29/18 22:02 Dose: 15 mg Nicotine (Nicoderm Cq) 1 patch TD DAILY [facility] Last Admin: 10/30/18 10:26 Dose: Not Given Nortriptyline HCl (Pamelor) 50 mg PO HS [facility] Last Admin: 10/29/18 22:02 Dose: 50 mg Pramipexole Dihydrochloride (Mirapex) 0.5 mg PO DAILY [facility] Last Admin: 10/30/18 10:19 Dose: 0.5 mg Tiotropium [place] (Spiriva Inhalation Handihaler Device) 1 inhaler INH DAILY [facility] - Labs Labs: 10/30/18 08:52 10/30/18 08:52 PT 17.8 SECONDS (9.7-12.2) H 10/27/18 12:15 INR 1.6 10/27/18 12:15 APTT 33 SECONDS (21-34) 10/27/18 12:15 - Head Exam Head Exam: ATRAUMATIC, NORMOCEPHALIC - ENT Exam ENT Exam: Mucous Membranes Moist - Neck Exam Neck Exam: Normal Inspection - Respiratory Exam Respiratory Exam: Decreased Breath Sounds - Cardiovascular Exam Cardiovascular Exam: REGULAR RHYTHM - GI/Abdominal Exam GI & Abdominal Exam: Soft, Normal Bowel Sounds - Extremities Exam Extremities Exam: Normal Inspection - Neurological Exam Neurological Exam: Alert Assessment and Plan (1) Pneumonia Assessment & Plan: Patient started on IV steroids Continue antibiotics Clinical improvement Follow-up chest x-ray Try nasal cannula and keep saturation more than 92% Status: Acute (2) Ulcerative colitis Status: Acute
--- NOTE | 2018-10-30 18:49 | CP.PCM.PN ---
Subjective - Date & Time of Evaluation Date of Evaluation: 10/30/18 Time of Evaluation: 08:00 - Subjective Subjective: afeb alert nad Objective - Vital Signs/Intake and Output Vital Signs (last 24 hours): Temp Pulse Resp BP Pulse Ox 97.6 F 64 35 H 126/76 20 L 10/30/18 15:00 10/30/18 15:00 10/30/18 07:00 10/30/18 15:00 10/30/18 15:00 - Medications Medications: Current Medications Acetylcysteine (Acetylcysteine 20%) 4 ml INH RQ4 [facility] Last Admin: 10/30/18 13:52 Dose: 4 ml Albuterol/Ipratropium (Duoneb 3 Mg/0.5 Mg (3 Ml) Ud) 3 ml INH RQ4 [facility] Last Admin: 10/30/18 13:52 Dose: 3 ml Benzonatate (Tessalon Perles) 100 mg PO TID [facility] Last Admin: 10/30/18 18:04 Dose: 100 mg Famotidine (Pepcid) 20 mg PO BID [facility] Last Admin: 10/30/18 18:04 Dose: 20 mg Guaifenesin (Mucinex La) 600 mg PO BID [facility] Last Admin: 10/30/18 18:04 Dose: 600 mg Heparin Sodium (Porcine) (Heparin) 5,000 units SC Q8 [facility] Last Admin: 10/30/18 13:49 Dose: 5,000 units Vancomycin/Sodium Chloride (Vancomycin 1 Gm/Ns 200 Ml) 1 gm in 200 mls @ 133 mls/hr IVPB Q12H [facility]; Protocol Stop: 11/01/18 17:01 Last Admin: 10/30/18 18:05 Dose: 133 mls/hr Imipenem/Cilastatin Sodium 500 (mg/ Sodium Chloride) 100 mls @ 100 mls/hr IVPB Q6H [facility]; Protocol Last Admin: 10/30/18 16:21 Dose: 100 mls/hr Lactobacillus Acidophilus (Bacid Acidophilus) 1 cap PO BID [facility] Last Admin: 10/30/18 18:04 Dose: 1 cap Methylprednisolone (Solu-Medrol) 40 mg IVP Q8H [facility] Last Admin: 10/30/18 16:20 Dose: 40 mg Mirtazapine (Remeron) 15 mg PO HS [facility] Last Admin: 10/29/18 22:02 Dose: 15 mg Nortriptyline HCl (Pamelor) 50 mg PO HS [facility] Last Admin: 10/29/18 22:02 Dose: 50 mg Pramipexole Dihydrochloride (Mirapex) 0.5 mg PO DAILY [facility] Last Admin: 10/30/18 10:19 Dose: 0.5 mg Tiotropium [place] (Spiriva Inhalation Handihaler Device) 1 inhaler INH DAILY [facility] - Labs Labs: 10/30/18 08:52 10/30/18 08:52 PT 17.8 SECONDS (9.7-12.2) H 10/27/18 12:15 INR 1.6 10/27/18 12:15 APTT 33 SECONDS (21-34) 10/27/18 12:15 - Constitutional Appears: Non-toxic, Chronically Ill - Head Exam Head Exam: NORMOCEPHALIC - Eye Exam Eye Exam: absent: Scleral icterus - ENT Exam ENT Exam: Mucous Membranes Dry - Neck Exam Neck Exam: absent: Lymphadenopathy - Respiratory Exam Respiratory Exam: Decreased Breath Sounds - Cardiovascular Exam Cardiovascular Exam: REGULAR RHYTHM - GI/Abdominal Exam GI & Abdominal Exam: Distended - Rectal Exam Rectal Exam: Deferred - Exam Exam: NORMAL INSPECTION - Extremities Exam Extremities Exam: absent: Pedal Edema - Back Exam Back Exam: absent: CVA tenderness (L), CVA tenderness (R) Assessment and Plan (1) Fever Status: Acute - Assessment and Plan (Free Text) Assessment: cont empiric rx as ordered Plan: exac chf/copd ? sepsis source unclear procalcitonin elevated consider d/c iv rx after 7 days
[2018-10-31] MEDS: MethylPREDNISolone 40 mg Vial IVP SCH ×3 (01:00→17:07)
[2018-10-31] MEDS: Albuterol-Ipratrop 3 mg / 0.5 (3 ml) UD INH SCH ×2 (03:18→07:10)
[2018-10-31] MEDS: Acetylcysteine 20% Inhal Soln (4ml) INH SCH ×5 (03:18→20:04)
[2018-10-31] MEDS: Vancomycin 1 gm/NS 200 ml 1 GM/200 ML BAG IVPB SCH ×2 (05:20→18:00)
--- NOTE | 2018-10-31 06:50 | CP.PCM.PN ---
<Everette Daly - Last Filed: 10/31/18 21:35> Subjective - Date & Time of Evaluation Date of Evaluation: 10/31/18 Time of Evaluation: 06:49 - Subjective Subjective: PGY-[address] Martin service Patient is seen and examined at bedside today. Patient states feeling well overall, complaining of decreased appetite. Patient noted to be calling for a family member who is not present in the room. However, patient is alert and oriented to person, place and time. Patient is seen wearing venti mask at 50%, patient complaining of mask bothering her eyes and nose, and has been taking the mask off. At time of the encounter, patient was oxygenating at 87% on venti mask, with heart rate of ~180bpm, ekg showing SVT. Patient remained stable, with no complains. rebreather masked placed at 100%, patient oxygen observed to be at 99% with HR converting to 106 BPM. Patient denies any fever, chills, chest pain, shortness of breath, abdominal pain, n/v/d/c, leg swelling or urinary symptoms. Objective - Vital Signs/Intake and Output Vital Signs (last 24 hours): Temp Pulse Resp BP Pulse Ox 98.3 F 112 H 20 129/75 91 L 10/30/18 23:40 10/30/18 23:40 10/30/18 23:40 10/30/18 23:40 10/30/18 23:40 - Medications Medications: Current Medications Acetylcysteine (Acetylcysteine 20%) 4 ml INH RQ4 [facility] Last Admin: 10/31/18 03:18 Dose: Not Given Albuterol/Ipratropium (Duoneb 3 Mg/0.5 Mg (3 Ml) Ud) 3 ml INH RQ4 [facility] Last Admin: 10/31/18 03:18 Dose: Not Given Benzonatate (Tessalon Perles) 100 mg PO TID [facility] Last Admin: 10/30/18 18:04 Dose: 100 mg Famotidine (Pepcid) 20 mg PO BID [facility] Last Admin: 10/30/18 18:04 Dose: 20 mg Guaifenesin (Mucinex La) 600 mg PO BID [facility] Last Admin: 10/30/18 18:04 Dose: 600 mg Heparin Sodium (Porcine) (Heparin) 5,000 units SC Q8 [facility] Last Admin: 10/31/18 05:40 Dose: 5,000 units Vancomycin/Sodium Chloride (Vancomycin 1 Gm/Ns 200 Ml) 1 gm in 200 mls @ 133 mls/hr IVPB Q12H [facility]; Protocol Stop: 11/01/18 17:01 Last Admin: 10/31/18 05:20 Dose: 133 mls/hr Imipenem/Cilastatin Sodium 500 (mg/ Sodium Chloride) 100 mls @ 100 mls/hr IVPB Q6H [facility]; Protocol Last Admin: 10/31/18 04:11 Dose: 100 mls/hr Lactobacillus Acidophilus (Bacid Acidophilus) 1 cap PO BID [facility] Last Admin: 10/30/18 18:04 Dose: 1 cap Methylprednisolone (Solu-Medrol) 40 mg IVP Q8H [facility] Last Admin: 10/31/18 01:00 Dose: 40 mg Mirtazapine (Remeron) 15 mg PO HS [facility] Last Admin: 10/30/18 22:06 Dose: 15 mg Nortriptyline HCl (Pamelor) 50 mg PO HS [facility] Last Admin: 10/30/18 22:05 Dose: 50 mg Pramipexole Dihydrochloride (Mirapex) 0.5 mg PO DAILY [facility] Last Admin: 10/30/18 10:19 Dose: 0.5 mg Tiotropium [place] (Spiriva Inhalation Handihaler Device) 1 inhaler INH DAILY [facility] - Labs Labs: 10/30/18 08:52 10/30/18 08:52 PT 17.8 SECONDS (9.7-12.2) H 10/27/18 12:15 INR 1.6 10/27/18 12:15 APTT 33 SECONDS (21-34) 10/27/18 12:15 - Constitutional Appears: Non-toxic, No Acute Distress, Chronically Ill - Head Exam Head Exam: ATRAUMATIC, NORMOCEPHALIC - Eye Exam Eye Exam: EOMI, Normal appearance, PERRL - ENT Exam ENT Exam: Mucous Membranes Moist, Normal Exam - Neck Exam Neck Exam: Full ROM, Normal Inspection - Respiratory Exam Respiratory Exam: Accessory Muscle Use, Rhonchi Additional comments: tachypnea - Cardiovascular Exam Cardiovascular Exam: Tachycardia, REGULAR RHYTHM, +S1, +S2 - GI/Abdominal Exam GI & Abdominal Exam: Soft, Normal Bowel Sounds. absent: Distended, Guarding, Tenderness - Extremities Exam Extremities Exam: Full ROM, Normal Inspection. absent: Tenderness - Back Exam Back Exam: Full ROM, NORMAL INSPECTION - Neurological Exam Neurological Exam: Alert, Awake, CN II-XII Intact, Oriented x3 - Psychiatric Exam Psychiatric exam: Normal Affect, Normal Mood - Skin Skin Exam: Dry, Intact, Normal Color, Warm Assessment and Plan - Assessment and Plan (Free Text) Assessment: 77 year old female admitted for multifocal PNA, saturating earlier on high 80s, low 90s, currently on nonrebreather mask at 100% O2, developed tachycardia, subsequent stable SVT, converted to sinus tachy and HR from 180 to 105 with encouragement of nonrebreather O2 mask Plan: Multifocal Pneumonia vs. Pneumonitis Sepsis - CXR: Interval appearance of diffuse reticular opacities and prominent lung markings more prominent in the lower lobes since the previous exam. Possible small left pleural effusion. - Chest CT: Patchy ground-glass opacities and diffuse interstitial septal thickening may represent pneumonitis or pulmonary edema/congestion. Left lung base atelectasis. Small bilateral pleural effusion. Mildly enlarged mediastinal lymph nodes. -Sepsis criteria met: on admission, febrile, tachycardic, elevated WBC at 16.2, suspected infection 10/29 in am - febrile, tachycardic, tachypnic, no elevated WBC, suspected infection - cultures continue to be negative - Labs sent out for atypicals, flu negative - Legionella urine test - negative - Blood, Urine, and Sputum cultures- no growth after 72 hours (blood cx), no growth urine, sputum normal oral ashley - Primaxin Q6H, vanco Q12 (10/27/18) - Vanco trough 10/29 - 12.1, 10/31 - 14.9, next vanc through 11/02 @4:30 am - D/C Duonebs - may have caused patient's tachycardia this morning - continue Mucomyst 4ml INH q4 - Started Atrovent 0.5 Q6hrs PRN - Spiriva 1 puff daily - Solumedrol 40mg IVP q8 - Tessalon Perles 100mg po tid - Mucinex 600mg po bid - Echo ordered - left ventricle systolic function normal, EF is 65-70%, transmitral doppler flow pattern is grade I abnormal relaxation patterns, there is moderate severe pulmonary hypertension. - Consult [employer] school [employer] teacher Dr Urbano -f/u recs - Consult ID recs Dr. Summers -f/u recs NOTE: patient has a history of smoking of 1/2 pack a day, quitted 15 years ago. had a long standing history of smoking, from lung CA. Tachycardia, stable SVT - EKG- Supraventricular tachycardia, no WPW - repeat EKG - sinus tachycardia - patient remained asymptomatic - patient converted from HR 180 to HR now 105 - most likely due to hypoxemia/use of duoneb (B2 agonist component) - Lopressor 5mg IVP x 1 dose given - will continue to monitor vitals - adviced patient to keep nonrebreather mask at all time - Patient placed on video monitoring due to taking her mask off and subsequently desaturating - Cardio consult Dr Warren - help is appreciated - eval tachycardia, possible MAT Parkinson's - continue Mirapex 0.5mg po daily hypokalemia, currently resolved - 10/31: 4.1 -continue to monitor - replete as needed Ulcerative Colitis - no bloody stools reported will continue to monitor for bloody diarrhea Recent Admission for C.Diff - c.diff negative on this admission - no loose stools reported hx of depression - started home med mirtazapine 15mg PO QHS and Nortryptyline HCL 50mg PO HS Hx of DVT - unknown when DVT Hx - US Doppler LE: neg bilaterally - continue SCDs Prophylactic Measures - GI PPX: Pepcid, Bacid - DVT PPX: SCDs, Hep Q8 - Diet: Reg Diet with 3 Ensure Enlive-strawberry - PT/OT Eval - Palliative Care consult: DNr/DNI, POLST on chart, Continue ordinary , supportive measure, Assist with feeding, Promote oral care. Plan discussed with Dr Veronica Daly, PGY-1 <Geetha Martin V - Last Filed: 11/04/18 08:25> Objective - Vital Signs/Intake and Output Vital Signs (last 24 hours): Temp Pulse Resp BP Pulse Ox 97.3 F L 70 20 132/61 97 11/04/18 04:10 11/04/18 04:10 11/04/18 04:10 11/04/18 04:10 11/04/18 04:10 Intake and Output: 11/04/18 11/04/18 06:59 18:59 Intake Total 780 Balance 780 - Medications Medications: Current Medications Acetylcysteine (Acetylcysteine 20%) 4 ml INH RQ4 [facility] Last Admin: 11/04/18 05:03 Dose: 4 ml Benzonatate (Tessalon Perles) 100 mg PO TID [facility] Last Admin: 11/03/18 18:34 Dose: 100 mg Famotidine (Pepcid) 20 mg PO BID [facility] Last Admin: 11/03/18 18:34 Dose: 20 mg Guaifenesin (Mucinex La) 600 mg PO BID [facility] Last Admin: 11/03/18 18:34 Dose: 600 mg Imipenem/Cilastatin Sodium 500 (mg/ Sodium Chloride) 100 mls @ 100 mls/hr IVPB Q6H [facility]; Protocol Last Admin: 11/04/18 05:05 Dose: 100 mls/hr Metronidazole (Flagyl) 500 mg in 100 mls @ 100 mls/hr IVPB Q8H [facility]; Protocol Last Admin: 11/04/18 04:15 Dose: 100 mls/hr Ipratropium [place] (Atrovent) 0.5 mg IH RQ6 PRN PRN Reason: Shortness of Breath Last Admin: 11/04/18 05:03 Dose: 0.5 mg Lactobacillus Acidophilus (Bacid Acidophilus) 1 cap PO BID [facility] Last Admin: 11/03/18 18:34 Dose: 1 cap Methylprednisolone (Solu-Medrol) 40 mg IVP Q12H [facility] Last Admin: 11/03/18 22:22 Dose: 40 mg Metoprolol Tartrate (Lopressor) 50 mg PO BID [facility] Last Admin: 11/03/18 18:34 Dose: 50 mg Mirtazapine (Remeron) 15 mg PO HS [facility] Last Admin: 11/03/18 22:22 Dose: 15 mg Nortriptyline HCl (Pamelor) 50 mg PO HS [facility] Last Admin: 11/03/18 22:22 Dose: 50 mg Pramipexole Dihydrochloride (Mirapex) 0.5 mg PO DAILY [facility] Last Admin: 11/03/18 09:55 Dose: 0.5 mg Tiotropium [place] (Spiriva) 18 mcg INH RQ24 [facility] Last Admin: 11/03/18 09:16 Dose: 18 mcg - Labs Labs: 11/04/18 06:58 11/04/18 06:58 PT 17.8 SECONDS (9.7-12.2) H 10/27/18 12:15 INR 1.6 10/27/18 12:15 APTT 33 SECONDS (21-34) 10/27/18 12:15 Attending/Attestation - Attestation I have personally seen and examined this patient.: Yes I have fully participated in the care of the patient.: Yes I have reviewed all pertinent clinical information, including history, physical exam and plan: Yes Notes (Text): This is late computer entry for 10/31/18. Patient seen, examined and case discussed with medical policy specialist. Patient this morning was hypoxic but in no acute distress, her EKG showed SVT as high as 180s but then slowed on low 100s while wearing her oxygen. We have d/c duonebs given side effect of tachycardia. We have discussed case with cardiology as well. Thyroid studies normal. Patient to continue IV abx to cover for pneumonia since procalcitonin was improving and IV steroids to improve respiratory status. Patient was seen by palliative care she is a confirmed DNR/DNI. Assessment/Plan Multifocal Pneumonia vs. Pneumonitis Sepsis Assessment/plan * Pulmonary Dr. Urbano on case help appreciated * Infectious Disease Dr Summers on case help appreciated * ID recommending for 7 days of therapy * CXR: Interval appearance of diffuse reticular opacities and prominent lung markings more prominent in the lower lobes since the previous exam. Possible small left pleural effusion. * Chest CT: Patchy ground-glass opacities and diffuse interstitial septal thickening may represent pneumonitis or pulmonary edema/congestion. Left lung base atelectasis. Small bilateral pleural effusion. Mildly enlarged mediastinal lymph nodes. * Sepsis criteria met: on admission, febrile, tachycardic, elevated WBC at 16.2, suspected infection * Primaxin 500mg IVPB Q6H (active since 10/27/18) * Vancomycin 1gm IVPB Q12H (active since 10/27/18) * Vancomycin trough: 12.1 (10/29/18); next trough 10/31 * Flu negative, legionella negative, Mycoplasma IGM negative * Normal oral ashley * Urine culture: no growth * Blood culture (10/27/18): no growth * c/w Solumderol 40mg IV Q8H * d/c Duoneb Q4H secondary to tachycardia/start Atrovent PRN * Start Spiriva 18mcg inhaled daily * Mucomyst Q4H * Chest physiotherapy * Tesslon perles and Mucinex for supportive care for cough * Patient refusing to use nonway breather/venti mas and does desaturate to upper 80s while on nasal cannula * We have re-emphasized to her again the importance of keeping on her supplemental oxygen since the hypoxia worsens her tachycardia * Patient on IV abx to cover for healthcare associated pneumonia * elevated procalcitonin: 5.00--> 2.05 2. History of Parkinson's Disease Assessment/plan * continue Mirapex 0.5mg PO daily 3. Hypokalemia Assessment/plan * monitor and replete 4. History of Ulcerative Colitis * patient does not have abdominal complaints * C. dif is negative. * Patient sees Dr. Lemus as outpatient; used to take Endocort which she reports she was told she does not need to use by Dr. Lemus * patient has prior admission for C. dif in past 5. Hx of depression * C/w home med mirtazapine 15mg PO QHS and Nortryptyline HCL 50mg PO HS 6 Unclear if she has had history of DVT; per EMR peripheral neuropathy * Negative for acute DVT and prior 02/27 shows no DVT 7. Tachycardia * Echocardiogram (10/29): left ventrcile systolic function is normal, EF: 65- 70%, moderate to severe pulmonary hypertension * EKG ordered this afternoon due to heart rate in the 170s; patient asymptomatic. Suspicion for MAT given smoking hx, emphysema, and hypoxia given noncompliance on venti/nonway breather; patent does not have known cardiac risk factors. Given dose of Cardizem 5mg IVP X1. * Repeat thyroid studies in AM * Patient strongly advised to use supplement oxygen * Patient does not have acute dvt per prelim doppler and prior 02/27 does not show dvt 8. Prophylactic Measures * GI PPX: Pepcid, Bacid * DVT PPX: SCDs, Hep Q8 * Diet: Reg Diet with 3 Ensure Enlive-strawberry * PT/OT Eval * Palliative Care consult: Code status and goals of care
[2018-10-31 07:09] LABS: BASO % 0.2 % (0.0-2.0); EOS % 0.1 % (0.0-4.0); HEMOGLOBIN 10.8 g/dL (11.0-16.0); LYMPH # 1.3 K/uL (1.0-4.3); LYMPH % 11.7 % (20.0-40.0); MEAN CELL VOLUME 97.6 fL (81.0-99.0); MEAN CORPUSCULAR HEMOGLOBIN 32.6 pg (27.0-31.0); MEAN CORPUSCULAR HGB CONC 33.4 g/dL (33.0-37.0); MEAN PLATELET VOLUME 9.4 fL (7.2-11.7); MONO # 1.1 K/uL (0.0-0.8); MONO % 9.5 % (0.0-10.0); NEUT # 8.9 K/uL (1.8-7.0); NEUT % 78.5 % (50.0-75.0); RBC 3.32 Mil/uL (3.80-5.20); RED CELL DISTRIBUTION WIDTH 14.2 % (11.5-14.5); WHITE BLOOD COUNT 11.3 K/uL (4.8-10.8)
[2018-10-31 08:01] LABS: ALB/GLOB RATIO 0.9 (1.0-2.1); ALBUMIN 2.8 g/dL (3.5-5.0); ALT/SGPT 33 U/L (9-52); AST/SGOT 34 U/L (14-36); BLOOD UREA NITROGEN 19 mg/dL (7-17); CALCIUM 8.5 mg/dl (8.6-10.4); GFR NON-AFRICAN AMERICAN > 60; HDL CHOLESTEROL 39 mg/dL (30-70)
[2018-10-31 08:15] LABS: LDL CHOLESTEROL 47 mg/dL (0-129)
--- NOTE | 2018-10-31 09:15 | CP.PCM.CON ---
History of Present Illness - History of Present Illness History of Present Illness: consultation for evaluation of tachycardia / MAT HPI: 77-year-old female with past medical history significant for Parkinson's DVT r ecent admission was C. difficile who presented to [facility] with complaints of productive cough ongoing fevers and chills does have a [id number] history of smoking on initial presentation she was febrile after hospitalization she was noted to have episodes of bouts of tachycardia with EKG showing SVT. At baseline she does have advisor functional class II dyspnea over the course of last few months she has noticed significant worsening in her breathing. Denies any chest pain complains of generalized fatigue and lethargy. Past medical history as stated above significant for ulcerative colitis nephrolithiasis zoster. Past surgical history significant for EGD colonoscopy and he will ligation allergies no known drug allergies social history quit smoking about 10 years ago for [id number] history of smoking no alcohol or illicit drug use. Review of Systems - Review of Systems Systems not reviewed;Unavailable: Acuity of Condition - Constitutional Constitutional: As Per HPI - EENT Eyes: As Per HPI Ears: As Per HPI Nose/Mouth/Throat: As Per HPI - Breasts Breasts: As Per HPI - Cardiovascular Cardiovascular: As Per HPI - Respiratory Respiratory: As Per HPI - Gastrointestinal Gastrointestinal: As Per HPI - Genitourinary Genitourinary: As Per HPI - Reproductive: Female Reproductive:Female: As Per HPI - Menstruation Menstruation: As Per HPI - Musculoskeletal Musculoskeletal: As Per HPI - Integumentary Integumentary: As Per HPI - Neurological Neurological: As Per HPI - Psychiatric Psychiatric: As Per HPI - Endocrine Endocrine: As Per HPI - Hematologic/Lymphatic Hematologic: As Per HPI Past Patient History - Infectious Disease Hx of Infectious Diseases: None - Tetanus Immunizations Tetanus Immunization: Unknown - Past Medical History & Family History Past Medical History?: Yes - Past Social History Smoking Status: Former Smoker - CARDIAC Hx Cardiac Disorders: Yes - PULMONARY Hx Respiratory Disorders: Yes (USED TO SMOKE CIGARETTES 1/2 PPD.15 YRS AGO.SMOKED SOCIALLY.) - NEUROLOGICAL Hx Neurological Disorder: Yes (TREMORS MAINLY TO LEFT HAND. PT ON MEDICATION FOR PARKINSON'S) - HEENT Hx HEENT Problems: No - RENAL Hx Chronic Kidney Disease: No Hx Kidney Stones: Yes (18 HAS A 2 MM STONE.) - ENDOCRINE/METABOLIC Hx Endocrine Disorders: No - HEMATOLOGICAL/ONCOLOGICAL Hx Human Immunodeficiency Virus (HIV): No - INTEGUMENTARY Hx Dermatological Problems: Yes Other/Comment: 09-25-18 SLIGHT REDDENED RASH TO RIGHT FLANK AREA. HAS PAIN. R/O SHINGLES. - MUSCULOSKELETAL/RHEUMATOLOGICAL Hx Musculoskeletal Disorders: Yes Hx Falls: Yes - GASTROINTESTINAL Hx Crohn's Disease: Yes Hx Diverticulitis: No Hx Gall Bladder Disease: No Hx Gastritis: No Hx Pancreatitis: No - GENITOURINARY/GYNECOLOGICAL Hx Genitourinary Disorders: Yes (Kidney stones last 2013,TUBAL LIGATION. C.S) - PSYCHIATRIC Hx Depression: No Hx Substance Use: No - SURGICAL HISTORY Hx Surgeries: Yes (BILATERAL CATARACT SX, TONSILLECTOMY,C/S,TUBAL LIGATION, KIDNEY STONE.) - ANESTHESIA Hx Anesthesia: No Hx Anesthesia Reactions: No Hx Malignant Hyperthermia: No Meds Allergies/Adverse Reactions: Allergies Allergy/AdvReac Type Severity Reaction Status Date / Time No Known Allergies Allergy Verified 10/27/18 10:44 - Medications Medications: Current Medications Acetylcysteine (Acetylcysteine 20%) 4 ml INH RQ4 [facility] Last Admin: 10/31/18 03:18 Dose: Not Given Albuterol/Ipratropium (Duoneb 3 Mg/0.5 Mg (3 Ml) Ud) 3 ml INH RQ4 [facility] Last Admin: 10/31/18 03:18 Dose: Not Given Benzonatate (Tessalon Perles) 100 mg PO TID [facility] Last Admin: 10/30/18 18:04 Dose: 100 mg Famotidine (Pepcid) 20 mg PO BID [facility] Last Admin: 10/30/18 18:04 Dose: 20 mg Guaifenesin (Mucinex La) 600 mg PO BID [facility] Last Admin: 10/30/18 18:04 Dose: 600 mg Heparin Sodium (Porcine) (Heparin) 5,000 units SC Q8 [facility] Last Admin: 10/31/18 05:40 Dose: 5,000 units Vancomycin/Sodium Chloride (Vancomycin 1 Gm/Ns 200 Ml) 1 gm in 200 mls @ 133 mls/hr IVPB Q12H [facility]; Protocol Stop: 11/01/18 17:01 Last Admin: 10/31/18 05:20 Dose: 133 mls/hr Imipenem/Cilastatin Sodium 500 (mg/ Sodium Chloride) 100 mls @ 100 mls/hr IVPB Q6H [facility]; Protocol Last Admin: 10/31/18 04:11 Dose: 100 mls/hr Lactobacillus Acidophilus (Bacid Acidophilus) 1 cap PO BID [facility] Last Admin: 10/30/18 18:04 Dose: 1 cap Methylprednisolone (Solu-Medrol) 40 mg IVP Q8H [facility] Last Admin: 10/31/18 08:45 Dose: 40 mg Mirtazapine (Remeron) 15 mg PO HS [facility] Last Admin: 10/30/18 22:06 Dose: 15 mg Nortriptyline HCl (Pamelor) 50 mg PO HS [facility] Last Admin: 10/30/18 22:05 Dose: 50 mg Pramipexole Dihydrochloride (Mirapex) 0.5 mg PO DAILY [facility] Last Admin: 10/30/18 10:19 Dose: 0.5 mg Tiotropium [place] (Spiriva Inhalation Handihaler Device) 1 inhaler INH DAILY [facility] Physical Exam - Constitutional Appears: Well - Head Exam Head Exam: ATRAUMATIC, NORMAL INSPECTION, NORMOCEPHALIC - Eye Exam Eye Exam: EOMI, Normal appearance, PERRL Pupil Exam: NORMAL ACCOMODATION, PERRL - ENT Exam ENT Exam: Mucous Membranes Moist, Normal Exam - Neck Exam Neck exam: Positive for: Normal Inspection - Respiratory Exam Respiratory Exam: Clear to Auscultation Bilateral, NORMAL BREATHING PATTERN - Cardiovascular Exam Cardiovascular Exam: REGULAR RHYTHM - GI/Abdominal Exam GI & Abdominal Exam: Normal Bowel Sounds, Soft. absent: Tenderness - Extremities Exam Extremities exam: Positive for: normal inspection - Back Exam Back exam: NORMAL INSPECTION - Neurological Exam Neurological exam: Alert, CN II-XII Intact, Normal Gait, Oriented x3, Reflexes Normal - Psychiatric Exam Psychiatric exam: Normal Affect, Normal Mood - Skin Skin Exam: Dry, Intact, Normal Color, Warm Results - Vital Signs Recent Vital Signs: Last Vital Signs Temp 97.7 F 10/31/18 07:05 Pulse 109 H 10/31/18 07:40 Resp 18 10/31/18 07:05 BP 125/77 10/31/18 07:05 Pulse Ox 91 L 10/31/18 07:05 - Labs Result Diagrams: 11/01/18 06:52 11/01/18 06:52 Labs: Laboratory Results - last 24 hr 10/27/18 10/28/18 10/30/18 14:10 15:20 08:52 WBC RBC Hgb Hct MCV MCH MCHC RDW Plt Count MPV Neut % (Auto) Lymph % (Auto) Ellis % (Auto) Eos % (Auto) Baso % (Auto) Neut # (Auto) Lymph # (Auto) Ellis # (Auto) Eos # (Auto) Baso # (Auto) Sodium Potassium Chloride Carbon Dioxide Anion Gap BUN Creatinine Est GFR ( Amer) Est GFR (Non-Af Amer) Random Glucose Hemoglobin A1c Calcium Phosphorus Magnesium Total Bilirubin AST ALT Alkaline Phosphatase Total Protein Albumin Globulin Albumin/Globulin Ratio Triglycerides Cholesterol LDL Cholesterol Direct HDL Cholesterol Free T4 Free T3 pg/mL TSH 3rd Generation Vancomycin Trough Mycoplasma pneumon IgG 3.03 H Mycoplasma pneumon IgM 123 Negative Ur Strep pneumoniae Ag Not detected 10/30/18 10/31/18 10/31/18 08:52 03:51 07:01 WBC 11.3 H RBC 3.32 L Hgb 10.8 L Hct 32.4 L MCV 97.6 MCH 32.6 H MCHC 33.4 RDW 14.2 Plt Count 251 MPV 9.4 Neut % (Auto) 78.5 H Lymph % (Auto) 11.7 L Ellis % (Auto) 9.5 Eos % (Auto) 0.1 Baso % (Auto) 0.2 Neut # (Auto) 8.9 H Lymph # (Auto) 1.3 Ellis # (Auto) 1.1 H Eos # (Auto) 0.0 Baso # (Auto) 0.0 Sodium 137 Potassium 3.5 L Chloride 107 Carbon Dioxide 23 Anion Gap 11 BUN 14 Creatinine 0.7 Est GFR ( Amer) > 60 Est GFR (Non-Af Amer) > 60 Random Glucose 122 H Hemoglobin A1c Calcium 8.6 Phosphorus 2.8 Magnesium 1.7 Total Bilirubin 0.6 AST 21 ALT 29 Alkaline Phosphatase 202 H Total Protein 6.1 L Albumin 2.9 L Globulin 3.2 Albumin/Globulin Ratio 0.9 L Triglycerides Cholesterol LDL Cholesterol Direct HDL Cholesterol Free T4 Free T3 pg/mL TSH 3rd Generation Vancomycin Trough 14.9 H Mycoplasma pneumon IgG Mycoplasma pneumon IgM Ur Strep pneumoniae Ag 10/31/18 10/31/18 10/31/18 07:01 07:01 07:01 WBC RBC Hgb Hct MCV MCH MCHC RDW Plt Count MPV Neut % (Auto) Lymph % (Auto) Ellis % (Auto) Eos % (Auto) Baso % (Auto) Neut # (Auto) Lymph # (Auto) Ellis # (Auto) Eos # (Auto) Baso # (Auto) Sodium 136 Potassium 4.1 Chloride 106 Carbon Dioxide 21 L Anion Gap 13 BUN 19 H Creatinine 0.6 L Est GFR ( Amer) > 60 Est GFR (Non-Af Amer) > 60 Random Glucose 190 H D Hemoglobin A1c 5.3 Calcium 8.5 L Phosphorus 3.0 Magnesium 2.0 Total Bilirubin 0.3 AST 34 ALT 33 Alkaline Phosphatase 215 H Total Protein 6.1 L Albumin 2.8 L Globulin 3.3 Albumin/Globulin Ratio 0.9 L Triglycerides 74 D Cholesterol 100 LDL Cholesterol Direct 47 HDL Cholesterol 39 Free T4 1.28 Free T3 pg/mL 1.67 L TSH 3rd Generation 0.70 Vancomycin Trough Mycoplasma pneumon IgG Mycoplasma pneumon IgM Ur Strep pneumoniae Ag Assessment & Plan (1) Tachycardia Assessment and Plan: etiology secondary to re-entry vs. SVT add bb Status: Acute (2) SVT (supraventricular tachycardia) Assessment and Plan: ischemic evaluation Status: Acute (3) SOB (shortness of breath) Status: Acute (4) Pulmonary hypertension Status: Acute (5) Pneumonia Status: Acute
[2018-10-31] MEDS: guaiFENesin 600 mg ER Tab PO SCH ×2 (09:58→17:08)
[2018-10-31] MEDS: Lactobacillus Acidophilus 500 MU Cap PO SCH ×2 (09:58→17:08)
--- NOTE | 2018-10-31 11:16 | CARD ---
APPROVED REPORT Date of service: 10/30/2018 EKG Measurement Heart [id number] <Conclusion> Supraventricular tachycardia Low voltage QRS Cannot rule out Anterior infarct, age undetermined ST & T wave abnormality, consider inferior ischemia Abnormal ECG
[2018-10-31] MEDS: Ipratropium 0.02% Inhal Soln (0.5 mg/2.5 ml) UD IH PRN ×2 (12:00→20:03)
--- NOTE | 2018-10-31 12:05 | VASCLAB ---
Date of service: 10/30/2018 PROCEDURE: Lower Extremity Venous Duplex Exam. HISTORY: hx of dvt PRIORS: None. TECHNIQUE: Bilateral common femoral, femoral, popliteal and posterior tibial, peroneal and great saphenous veins were evaluated. Flow was assessed with color Doppler, compressibility, assessment of phasic flow and augmentation response. Report prepared by Mandeep Richards, BS, RVT FINDINGS: RIGHT: 1. Common Femoral Vein: 1.1. Compressibility - Fully compressible: Thrombus - None : Flow - Phasic: Augmentation -Normal: Reflux - None. 2. Femoral Vein: 2.1. Compressibility - Fully compressible: Thrombus - None : Flow - Phasic: Augmentation -Normal: Reflux - None. 3. Popliteal Vein: 3.1. Compressibility - Fully compressible: Thrombus - None : Flow - Phasic: Augmentation -Normal: Reflux - None. 4. Posterior Tibial Vein: 4.1. Compressibility - Fully compressible: Thrombus - None: Flow - Phasic: Augmentation -Normal: Reflux - None. 5. Peroneal Vein: 5.1. Compressibility - Fully compressible: Thrombus - None: Flow - Phasic: Augmentation -Normal: Reflux - None. 6. Great Saphenous Vein: 6.1. Compressibility - Fully compressible: Thrombus - None: Flow - Phasic: Augmentation - Normal: Reflux - None. LEFT: 1. Common Femoral Vein: 1.1. Compressibility - Fully compressible: Thrombus - None: Flow - Phasic: Augmentation -Normal: Reflux - None. 2. Femoral Vein: 2.1. Compressibility - Fully compressible: Thrombus - None: Flow - Phasic: Augmentation -Normal: Reflux - None. 3. Popliteal Vein: 3.1. Compressibility - Fully compressible: Thrombus - None : Flow - Phasic: Augmentation -Normal: Reflux - None. 4. Posterior Tibial Vein: 4.1. Compressibility - Fully compressible: Thrombus - None: Flow - Phasic: Augmentation -Normal: Reflux - None. 5. Peroneal Vein: 5.1. Compressibility - Fully compressible: Thrombus - None: Flow - Phasic: Augmentation -Normal: Reflux - None. 6. Great Saphenous Vein: 6.1. Compressibility - Fully compressible: Thrombus - None: Flow - Phasic: Augmentation - Normal: Reflux - None. OTHER FINDINGS: Right: None significant. Left: None significant. IMPRESSION: Right: No evidence of deep or superficial vein thrombosis of the right lower extremity. Normal valve function noted of the right side. Left: No evidence of deep or superficial vein thrombosis of the left lower extremity. Normal valve function noted of the left side.
[2018-10-31] MEDS: Tiotropium 18 mcg Cap For Inhalation INH SCH (14:00)
--- NOTE | 2018-10-31 14:17 | CP.PCM.CON ---
History of Present Illness - History of Present Illness History of Present Illness: Palliative consult requested by Doctor Martin for goals of care discussion Patient is a 82 yo female admitted from home with cough, aputum production and feeling unwell overall, X 1 week. On the day of admission patient was feeling dizzy, weak and with fever. CXR was significant for possible pneumonia. CT chest confirmed pulmonary edema. Doppler of LEs was negative. Primaxin, Vanco and Solumedrol IV, along with Neb Tx ,started. Despite all these interventions, breathing was getting heavier since the admission and patient was placed on )2 of FiO2 45 %. Her O2 Sat remain at 91 %. Palliative care was called to assist with Code status discussion. PMH: Parkinson's, Chron's, ulceritive colitis, C Diff Soc. Hx: , lives at home, son helps with care, uses O2 at home, quit smoking 15 y ago Fam. Hx: denied Review of Systems - Constitutional Constitutional: Fatigue, Weakness - EENT Eyes: absent: As Per HPI, Blind Spots, Blurred Vision, Change in Vision, Decreased Night Vision, Diplopia, Discharge, Dry Eye, Exophthalmos, Floaters, Irritation, Itchy Eyes, Loss of Peripheral Vision, Pain, Photophobia, Requires Corrective Lenses, Sees Flashes, Spots in Vision, Tunnel Vision, Other Visual Disturbances, Loss of Vision, Other Ears: absent: As Per HPI, Decreased Hearing, Ear Discharge, Ear Pain, Tinnitus, Abnormal Hearing, Disequilibrium, Dizziness, Other Nose/Mouth/Throat: absent: As Per HPI, Epistaxis, Nasal Congestion, Nasal Discharge, Nasal Obstruction, Nasal Trauma, Nose Pain, Post Nasal Drip, Sinus Pain, Sinus Pressure, Bleeding Gums, Change in Voice, Dental Pain, Dry Mouth, Dysphagia, Halitosis, Hoarsness, Lip Swelling, Mouth Lesions, Mouth Pain, [place] nophagia, Sore Throat, Throat Swelling, Tongue Swelling, Facial Pain, Neck Pain, Neck Mass, Other - Breasts Breasts: absent: As Per HPI, Change in Shape, Mass, Pain, Nipple Discharge, Nipple Inversion, Skin Changes, Swelling, Other - Cardiovascular Cardiovascular: Dyspnea on Exertion, Rapid Heart Rate - Gastrointestinal Gastrointestinal: absent: As Per HPI, Abdominal Pain, Belching, Bloating, Change in Bowel Habits, Change in Stool Character, Coffee Ground Emesis, Constipation, Cramping, Diarrhea, Dyspepsia, Dysphagia, Early Satiety, Excessive Flatus, Fecal Incontinence, Heartburn, Hematemesis, Hematochezia, Loose Stools, Melena, Nausea, Odynophagia, Temesmus, Vomiting, Other - Genitourinary Genitourinary: absent: As Per HPI, Change in Urinary Stream, Difficulty Urinating, Dysuria, Flank Pain, Hematuria, Pyuria, Nocturia, Urinary In continence, Urinary Frequency, Urinary Hesitance, Urinary Urgency, Voiding Freq/Small Amts, Freq UTI, Hx Renal/Bladder Calculi, Hx /Renal Surgery, Bladder Distension, Other - Reproductive: Female Reproductive:Female: Post Menopausal - Menstruation Menstruation: Post Menopausal - Musculoskeletal Musculoskeletal: Muscle Weakness - Integumentary Integumentary: absent: As Per HPI, Acne, Alopecia, Bleeding Lesions, Change in Hair, Change in Nails, Change in Pigmentation, Changing Lesions, Dry Skin, Erythema, Furuncle, Hirsutism, Lesions, New Lesions, Non-Healing Lesions, Photosensitivity, Pruritus, Rash, Skin Pain, Skin Ulcer, Sores, Striae, Swelling, Unusual Bruising, Wounds, Jaundice, Other - Neurological Neurological: absent: As Per HPI, Abnormal Gait, Abnormal Hearing, Abnormal Movements, Abnormal Speech, Behavioral Changes, Burning Sensations, Confusion, Convulsions, Disequilibrium, Dizziness, Numbness, Focal Weakness, Frequent Falls, Headaches, Lack of Coordination, Loss of Vision, Memory Loss, Paresthesias, Radicular Pain, Restless Legs, Sensory Deficit, Syncope, Tingling, Tremor, Vertigo, Weakness, Other Visual Disturbances, Other - Psychiatric Psychiatric: absent: As Per HPI, Abnormal Sleep Pattern, Anhedonia, Anxiety, Auditory Hallucinations, Behavioral Changes, Change in Appetite, Change in Libido, Confusion, Depression, Difficulty Concentrating, Hallucinations, Homicidal Ideation, Hopelessness, Irritability, Memory Loss, Mood Swings, Panic Attacks, Paranoia, Suicidal Ideation, Visual Hallucinations, Tactile Hallucinations, Other - Endocrine Endocrine: absent: As Per HPI, Change in Body Appearance, Change in Libido, Cold Intolorance, Deepening of Voice, Excessive Sweating, Fatigue, Flushing, Heat Intolorance, Increase in Ring/Shoe/Hat Size, Palpitations, Polydipsia, Polyphagia, Polyuria, Other - Hematologic/Lymphatic Hematologic: Easy Bleeding Past Patient History - Infectious Disease Hx of Infectious Diseases: None - Tetanus Immunizations Tetanus Immunization: Unknown - Past Medical History & Family History Past Medical History?: Yes - Past Social History Smoking Status: Former Smoker - CARDIAC Hx Cardiac Disorders: Yes - PULMONARY Hx Respiratory Disorders: Yes (USED TO SMOKE CIGARETTES 1/2 PPD.15 YRS AGO.SMOKED SOCIALLY.) - NEUROLOGICAL Hx Neurological Disorder: Yes (TREMORS MAINLY TO LEFT HAND. PT ON MEDICATION FOR PARKINSON'S) - HEENT Hx HEENT Problems: No - RENAL Hx Chronic Kidney Disease: No Hx Kidney Stones: Yes (09-25-18 HAS A 2 MM STONE.) - ENDOCRINE/METABOLIC Hx Endocrine Disorders: No - HEMATOLOGICAL/ONCOLOGICAL Hx Human Immunodeficiency Virus (HIV): No - INTEGUMENTARY Hx Dermatological Problems: Yes Other/Comment: 09-25-18 SLIGHT REDDENED RASH TO RIGHT FLANK AREA. HAS PAIN. R/O SHINGLES. - MUSCULOSKELETAL/RHEUMATOLOGICAL Hx Musculoskeletal Disorders: Yes Hx Falls: Yes - GASTROINTESTINAL Hx Crohn's Disease: Yes Hx Diverticulitis: No Hx Gall Bladder Disease: No Hx Gastritis: No Hx Pancreatitis: No - GENITOURINARY/GYNECOLOGICAL Hx Genitourinary Disorders: Yes (Kidney stones last 2013,TUBAL LIGATION. C.S) - PSYCHIATRIC Hx Depression: No Hx Substance Use: No - SURGICAL HISTORY Hx Surgeries: Yes (BILATERAL CATARACT SX, TONSILLECTOMY,C/S,TUBAL LIGATION, KIDNEY STONE.) - ANESTHESIA Hx Anesthesia: No Hx Anesthesia Reactions: No Hx Malignant Hyperthermia: No Meds Allergies/Adverse Reactions: Allergies Allergy/AdvReac Type Severity Reaction Status Date / Time No Known Allergies Allergy Verified 10/27/18 10:44 - Medications Medications: Current Medications Acetylcysteine (Acetylcysteine 20%) 4 ml INH RQ4 ON LICENSE OF [facility] Last Admin: 10/31/18 07:10 Dose: 4 ml Benzonatate (Tessalon Perles) 100 mg PO TID ON LICENSE OF [facility] Last Admin: 10/31/18 09:58 Dose: 100 mg Famotidine (Pepcid) 20 mg PO BID ON LICENSE OF [facility] Last Admin: 10/31/18 09:58 Dose: 20 mg Guaifenesin (Mucinex La) 600 mg PO BID ON LICENSE OF [facility] Last Admin: 10/31/18 09:58 Dose: 600 mg Heparin Sodium (Porcine) (Heparin) 5,000 units SC Q8 ON LICENSE OF [facility] Last Admin: 10/31/18 05:40 Dose: 5,000 units Vancomycin/Sodium Chloride (Vancomycin 1 Gm/Ns 200 Ml) 1 gm in 200 mls @ 133 mls/hr IVPB Q12H ON LICENSE OF [facility]; Protocol Stop: 11/01/18 17:01 Last Admin: 10/31/18 05:20 Dose: 133 mls/hr Imipenem/Cilastatin Sodium 500 (mg/ Sodium Chloride) 100 mls @ 100 mls/hr IVPB Q6H ON LICENSE OF [facility]; Protocol Last Admin: 10/31/18 10:12 Dose: 100 mls/hr Ipratropium [place] (Atrovent) 0.5 mg IH RQ6 PRN PRN Reason: Shortness of Breath Lactobacillus Acidophilus (Bacid Acidophilus) 1 cap PO BID ON LICENSE OF [facility] Last Admin: 10/31/18 09:58 Dose: 1 cap Methylprednisolone (Solu-Medrol) 40 mg IVP Q8H ON LICENSE OF [facility] Last Admin: 10/31/18 08:45 Dose: 40 mg Mirtazapine (Remeron) 15 mg PO [facility] Last Admin: 10/30/18 22:06 Dose: 15 mg Nortriptyline HCl (Pamelor) 50 mg PO HS ON [facility] OF [facility] Last Admin: 10/30/18 22:05 Dose: 50 mg Pramipexole Dihydrochloride (Mirapex) 0.5 mg PO DAILY ON LICENSE OF [facility] Last Admin: 10/31/18 09:58 Dose: 0.5 mg Tiotropium [place] (Spiriva) 18 mcg INH RQ24 ON LICENSE OF [facility] Physical Exam - Constitutional Appears: In Acute Distress, Chronically Ill - Head Exam Head Exam: ATRAUMATIC, NORMAL INSPECTION, NORMOCEPHALIC - Eye Exam Eye Exam: EOMI, Normal appearance, PERRL Pupil Exam: NORMAL ACCOMODATION, PERRL - ENT Exam ENT Exam: Mucous Membranes Dry - Neck Exam Neck exam: Positive for: Normal Inspection - Respiratory Exam Respiratory Exam: Accessory Muscle Use, Decreased Breath Sounds - Cardiovascular Exam Cardiovascular Exam: Tachycardia, REGULAR RHYTHM - GI/Abdominal Exam GI & Abdominal Exam: Normal Bowel Sounds, Soft - Rectal Exam Rectal Exam: Deferred - Exam Exam: NORMAL INSPECTION - Extremities Exam Extremities exam: Positive for: normal inspection - Back Exam Back exam: NORMAL INSPECTION - Neurological Exam Neurological exam: Alert, Oriented x3 - Psychiatric Exam Psychiatric exam: Depressed, Flat Affect - Skin Skin Exam: Dry, Intact, Pallor Results - Vital Signs Recent Vital Signs: Last Vital Signs Temp 97.7 F 10/31/18 07:05 Pulse 109 H 10/31/18 07:40 Resp 18 10/31/18 07:05 BP 125/77 10/31/18 07:05 Pulse Ox 91 L 10/31/18 07:05 - Labs Result Diagrams: 10/31/18 07:01 10/31/18 07:01 Labs: Laboratory Results - last 24 hr 10/27/18 10/28/18 10/30/18 14:10 15:20 08:52 WBC RBC Hgb Hct MCV MCH MCHC RDW Plt Count MPV Neut % (Auto) Lymph % (Auto) [place] % (Auto) Eos % (Auto) Baso % (Auto) Neut # (Auto) Lymph # (Auto) [place] # (Auto) Eos # (Auto) Baso # (Auto) Sodium Potassium Chloride Carbon Dioxide Anion Gap BUN Creatinine Est GFR ( Amer) Est GFR (Non-Af Amer) Random Glucose Hemoglobin A1c Calcium Phosphorus Magnesium Total Bilirubin AST ALT Alkaline Phosphatase Total Protein Albumin Globulin Albumin/Globulin Ratio Triglycerides Cholesterol LDL Cholesterol Direct HDL Cholesterol Free T4 Free T3 pg/mL TSH 3rd Generation Vancomycin Trough Mycoplasma pneumon IgG 3.03 H Mycoplasma pneumon IgM 123 Negative Ur Strep pneumoniae Ag Not detected 10/31/18 10/31/18 10/31/18 03:51 07:01 07:01 WBC 11.3 H RBC 3.32 L Hgb 10.8 L Hct 32.4 L MCV 97.6 MCH 32.6 H MCHC 33.4 RDW 14.2 Plt Count 251 MPV 9.4 Neut % (Auto) 78.5 H Lymph % (Auto) 11.7 L [place] % (Auto) 9.5 Eos % (Auto) 0.1 Baso % (Auto) 0.2 Neut # (Auto) 8.9 H Lymph # (Auto) 1.3 [place] # (Auto) 1.1 H Eos # (Auto) 0.0 Baso # (Auto) 0.0 Sodium 136 Potassium 4.1 Chloride 106 Carbon Dioxide 21 L Anion Gap 13 BUN 19 H Creatinine 0.6 L Est GFR ( Amer) > 60 Est GFR (Non-Af Amer) > 60 Random Glucose 190 H D Hemoglobin A1c Calcium 8.5 L Phosphorus 3.0 Magnesium 2.0 Total Bilirubin 0.3 AST 34 ALT 33 Alkaline Phosphatase 215 H Total Protein 6.1 L Albumin 2.8 L Globulin 3.3 Albumin/Globulin Ratio 0.9 L Triglycerides 74 D Cholesterol 100 LDL Cholesterol Direct 47 HDL Cholesterol 39 Free T4 Free T3 pg/mL 1.67 L TSH 3rd Generation 0.70 Vancomycin Trough 14.9 H Mycoplasma pneumon IgG Mycoplasma pneumon IgM Ur Strep pneumoniae Ag 10/31/18 10/31/18 07:01 07:01 WBC RBC Hgb Hct MCV MCH MCHC RDW Plt Count MPV Neut % (Auto) Lymph % (Auto) [place] % (Auto) Eos % (Auto) Baso % (Auto) Neut # (Auto) Lymph # (Auto) [place] # (Auto) Eos # (Auto) Baso # (Auto) Sodium Potassium Chloride Carbon Dioxide Anion Gap BUN Creatinine Est GFR ( Amer) Est GFR (Non-Af Amer) Random Glucose Hemoglobin A1c 5.3 Calcium Phosphorus Magnesium Total Bilirubin AST ALT Alkaline Phosphatase Total Protein Albumin Globulin Albumin/Globulin Ratio Triglycerides Cholesterol LDL Cholesterol Direct HDL Cholesterol Free T4 1.28 Free T3 pg/mL TSH 3rd Generation Vancomycin Trough Mycoplasma pneumon IgG Mycoplasma pneumon IgM Ur Strep pneumoniae Ag Assessment & Plan - Assessment and Plan (Free Text) Assessment: Palliative consult There was no Advance directive on chart, PPS 20% I reviewed all medical records, diagnostic studies, examined and interviewed patient in the bed Patient is alert, oriented X 3, looking ill, in acute respiratory distress. On Non rebrither mask. O2 Sat 91%. Skin pal. Hb 10.8. Oral mucousa dry. There is circumoral cyanosis. Patient unable to speak in full sentences without getting short of breath. Abdomen soft, normal bowel sounds. Denies abdominal pain. Appetite poor. Likes Ensure mixed with water. Patient able to move upper and loer extremities. Fine motor skills to both hands are diminished, needs assistance with feeding, unable to hold cup or utensils securely. BP 125/77, HR 109, O2Sat 91% WBC 11.3, Hb 10.8, Alb 2.8 I evaluated patient's clinical presentation and questioned her understanding about her condition. Patient understands is having pneumonia and needs IV antibiotics for it. Patient reports symptoms of cough while she was at home, and SOB prevented her from doing her house chores. Reports, her next door and her son had to help her with it. Patient is looking toward returning home before [place]. Code status discussed. I shared my concerns regarding her breathing and asked if she would want us to be more aggressive and place her on breathing machine if it should be needed. Patient was very specific against CPR and intubation saying" she has been sick for a long time" and wants " things to go their way". I asked her to elaborate more on these statements. Patient said , in the past she signed the Document against these agressive measures but was not sure where ir was. She also shared her wishes with her sister. I asked if I could talk to her son about her wishes and patient said NO. very clearly, patient said, if it was up to her son, he would keep her up on life support for ever, but it was not what she wanted for her self. I introduce POLST. Patient signed DNR/DNI. I shared this with Sonny GLASS and Doctor Martin. Impression * Chronically ill lady with acute respiratory distress * Tachycardia * Decreased appetite * Generalized weakness * Wishes to natural and does not want her son Alexandr to make those decisions for her Suggestion * Continue ordinary , supportive measures * Assist with feedings * Promote oral care * DNr/DNI, POLST on chart Palliative care will remain available as needed to offer support. Advance care planing 50 min
[2018-10-31] MEDS ORDERED: Metoprolol 1 mg/ml Inj IVP ONE ×2 (16:30→17:43)
--- NOTE | 2018-10-31 17:32 | CP.PCM.PN ---
Subjective - Date & Time of Evaluation Date of Evaluation: 10/31/18 Time of Evaluation: 10:20 - Subjective Subjective: Patient seen and examined at bedside, lying down comfortably. Afebrile and in no acute distress. Denies chest pain, fever/chills, SOB. SpO2 91% on NC, keeps removing NC and BiPAP Gram stain final - many polymorphonuclear WBCs and few gram positive cocci. Sputum culutre showed normal oral ashley Continue Antibiotics Continue steroids Will order repeat CXR today Objective - Vital Signs/Intake and Output Vital Signs (last 24 hours): Temp Pulse Resp BP Pulse Ox 98.0 F 108 H 18 122/72 97 10/31/18 15:05 10/31/18 16:00 10/31/18 15:05 10/31/18 15:05 10/31/18 15:05 - Medications Medications: Current Medications Acetylcysteine (Acetylcysteine 20%) 4 ml INH RQ4 [facility] Last Admin: 10/31/18 12:00 Dose: 4 ml Benzonatate (Tessalon Perles) 100 mg PO TID [facility] Last Admin: 10/31/18 14:21 Dose: 100 mg Famotidine (Pepcid) 20 mg PO BID [facility] Last Admin: 10/31/18 17:08 Dose: 20 mg Guaifenesin (Mucinex La) 600 mg PO BID [facility] Last Admin: 10/31/18 17:08 Dose: 600 mg Heparin Sodium (Porcine) (Heparin) 5,000 units SC Q8 [facility] Last Admin: 10/31/18 14:21 Dose: 5,000 units Vancomycin/Sodium Chloride (Vancomycin 1 Gm/Ns 200 Ml) 1 gm in 200 mls @ 133 mls/hr IVPB Q12H [facility]; Protocol Stop: 11/01/18 17:01 Last Admin: 10/31/18 05:20 Dose: 133 mls/hr Imipenem/Cilastatin Sodium 500 (mg/ Sodium Chloride) 100 mls @ 100 mls/hr IVPB Q6H [facility]; Protocol Last Admin: 10/31/18 17:07 Dose: 100 mls/hr Ipratropium [place] (Atrovent) 0.5 mg IH RQ6 PRN PRN Reason: Shortness of Breath Last Admin: 10/31/18 12:00 Dose: 0.5 mg Lactobacillus Acidophilus (Bacid Acidophilus) 1 cap PO BID [facility] Last Admin: 12/20/18 17:08 Dose: 1 cap Methylprednisolone (Solu-Medrol) 40 mg IVP Q8H [facility] Last Admin: 10/31/18 17:07 Dose: 40 mg Mirtazapine (Remeron) 15 mg PO HS [facility] Last Admin: 10/30/18 22:06 Dose: 15 mg Nortriptyline HCl (Pamelor) 50 mg PO HS [facility] Last Admin: 10/30/18 22:05 Dose: 50 mg Pramipexole Dihydrochloride (Mirapex) 0.5 mg PO DAILY [facility] Last Admin: 10/31/18 09:58 Dose: 0.5 mg Tiotropium [place] (Spiriva) 18 mcg INH RQ24 [facility] Last Admin: 10/31/18 14:00 Dose: Not Given - Labs Labs: 10/31/18 07:01 10/31/18 07:01 PT 17.8 SECONDS (9.7-12.2) H 10/27/18 12:15 INR 1.6 10/27/18 12:15 APTT 33 SECONDS (21-34) 10/27/18 12:15 Assessment and Plan (1) Pneumonia Status: Acute (2) Ulcerative colitis Status: Acute
--- NOTE | 2018-10-31 18:41 | PQF ---
PROVIDER RESPONSE TEXT: Admitted with SIRS and signs and symptoms of pneumonia with exac COPD and CHF Etiology unclear- r/o viral vs bacterial vs atypical REVIEWER QUERY TEXT: Clarification of Clinical Diagnostic Findings Please clarify documentation or clinical relevance for the clinical / diagnostic findings or whether those are insignificant or unable to be further specified. The patient's Clinical Indicators include: ?77 y/o female presents to ED complaining she doesn?t feel well for a week, associated with productiv e cough with green sputum?. Blood Gas: pO2: 24 Rapid respond was called After patient appeared to have difficulty breathing. Patient was initially r oom air, then put 2L NC on herself. Found to have O2 saturation high 80s on 2L NC. Patient Placed on 100% NRB. Clinical findings matching with Acute Respiratory failure with hypoxia, Please consider verify and do cument it, if agree. Query created by: Ghulam Perales on 10/29/2018 11:00 AM Electronically signed by: Mandeep Summers MD 10/31/2018 6:38 PM
[2018-11-01] MEDS: MethylPREDNISolone 40 mg Vial IVP SCH ×3 (00:14→17:21)
[2018-11-01] MEDS: Acetylcysteine 20% Inhal Soln (4ml) INH SCH ×6 (00:55→19:07)
[2018-11-01] MEDS: Ipratropium 0.02% Inhal Soln (0.5 mg/2.5 ml) UD IH PRN ×4 (04:05→19:07)
[2018-11-01] MEDS: Vancomycin 1 gm/NS 200 ml 1 GM/200 ML BAG IVPB SCH ×2 (05:25→18:00)
--- NOTE | 2018-11-01 06:54 | CP.PCM.PN ---
<Everette Daly - Last Filed: 11/01/18 20:00> Subjective - Date & Time of Evaluation Date of Evaluation: 11/01/18 Time of Evaluation: 06:54 - Subjective Subjective: PGY-[address] Martin service Patient is seen and examined at bedside. As per nurse, patient kept taking bipap out overnight but was encouraged to keep it on. Patient was confused at nightime. Patient states feeling"weak in her stomach", as she continues to not have a good appetite. Patient denies any other symptoms. Patient seen to be over concerned about all the different tests done to her in the morning. Patient states she prefers the bipap machine than the nonrebreather mask, as it is uncomfortable around the area of the nose. Patient denies other symptoms such as fever, chills, chest pain, shortness of breath dizziness, n/v/d/c or urinary symptoms. Objective - Vital Signs/Intake and Output Vital Signs (last 24 hours): Temp Pulse Resp BP Pulse Ox 98.4 F 97 H 20 156/81 H 95 10/31/18 23:35 11/01/18 03:00 10/31/18 23:35 10/31/18 23:35 10/31/18 23:35 Intake and Output: 10/31/18 11/01/18 18:59 06:59 Intake Total 620 Output Total 2 Balance 618 - Medications Medications: Current Medications Acetylcysteine (Acetylcysteine 20%) 4 ml INH RQ4 [facility] Last Admin: 11/01/18 04:05 Dose: Not Given Benzonatate (Tessalon Perles) 100 mg PO TID [facility] Last Admin: 10/31/18 18:00 Dose: 100 mg Famotidine (Pepcid) 20 mg PO BID [facility] Last Admin: 10/31/18 17:08 Dose: 20 mg Guaifenesin (Mucinex La) 600 mg PO BID [facility] Last Admin: 10/31/18 17:08 Dose: 600 mg Heparin Sodium (Porcine) (Heparin) 5,000 units SC Q8 [facility] Last Admin: 11/01/18 05:27 Dose: 5,000 units Vancomycin/Sodium Chloride (Vancomycin 1 Gm/Ns 200 Ml) 1 gm in 200 mls @ 133 mls/hr IVPB Q12H [facility]; Protocol Stop: 11/01/18 17:01 Last Admin: 11/01/18 05:25 Dose: 133 mls/hr Imipenem/Cilastatin Sodium 500 (mg/ Sodium Chloride) 100 mls @ 100 mls/hr IVPB Q6H [facility]; Protocol Last Admin: 11/01/18 05:27 Dose: 100 mls/hr Ipratropium [place] (Atrovent) 0.5 mg IH RQ6 PRN PRN Reason: Shortness of Breath Last Admin: 11/01/18 04:10 Dose: 0.5 mg Lactobacillus Acidophilus (Bacid Acidophilus) 1 cap PO BID [facility] Last Admin: 10/31/18 17:08 Dose: 1 cap Methylprednisolone (Solu-Medrol) 40 mg IVP Q8H [facility] Last Admin: 11/01/18 00:14 Dose: 40 mg Mirtazapine (Remeron) 15 mg PO HS [facility] Last Admin: 10/31/18 22:05 Dose: 15 mg Nortriptyline HCl (Pamelor) 50 mg PO HS [facility] Last Admin: 10/31/18 22:05 Dose: 50 mg Pramipexole Dihydrochloride (Mirapex) 0.5 mg PO DAILY [facility] Last Admin: 10/31/18 09:58 Dose: 0.5 mg Tiotropium [place] (Spiriva) 18 mcg INH RQ24 [facility] Last Admin: 10/31/18 14:00 Dose: Not Given - Labs Labs: 10/31/18 07:01 10/31/18 07:01 PT 17.8 SECONDS (9.7-12.2) H 10/27/18 12:15 INR 1.6 10/27/18 12:15 APTT 33 SECONDS (21-34) 10/27/18 12:15 - Constitutional Appears: Non-toxic, No Acute Distress - Head Exam Head Exam: ATRAUMATIC, NORMAL INSPECTION, NORMOCEPHALIC - Eye Exam Eye Exam: EOMI, Normal appearance - ENT Exam ENT Exam: Mucous Membranes Moist, Normal Exam - Neck Exam Neck Exam: Full ROM, Normal Inspection - Respiratory Exam Respiratory Exam: Clear to Ausculation Bilateral, NORMAL BREATHING PATTERN. ab sent: Rales, Rhonchi, Wheezes - Cardiovascular Exam Cardiovascular Exam: Tachycardia, REGULAR RHYTHM, +S1, +S2 - GI/Abdominal Exam GI & Abdominal Exam: Soft, Normal Bowel Sounds. absent: Distended, Guarding, Tenderness - Extremities Exam Extremities Exam: Full ROM, Normal Inspection. absent: Calf Tenderness, Pedal Edema, Tenderness - Back Exam Back Exam: Full ROM, NORMAL INSPECTION - Neurological Exam Neurological Exam: Alert, Awake - Psychiatric Exam Psychiatric exam: Anxious, Normal Mood - Skin Skin Exam: Dry, Intact, Normal Color, Warm Assessment and Plan - Assessment and Plan (Free Text) Assessment: 77 year old female admitted for multifocal PNA, no acute changes, previous days desaturating, now stable saturation at 99% on BIPAP at this time. HR stable at 90-100s. Plan: Multifocal Pneumonia vs. Pneumonitis Sepsis - CXR: Interval appearance of diffuse reticular opacities and prominent lung markings more prominent in the lower lobes since the previous exam. Possible small left pleural effusion. - Chest CT: Patchy ground-glass opacities and diffuse interstitial septal thic kening may represent pneumonitis or pulmonary edema/congestion. Left lung base atelectasis. Small bilateral pleural effusion. Mildly enlarged mediastinal lymph nodes. -Sepsis criteria met: on admission, febrile, tachycardic, elevated WBC at 16.2, suspected infection 10/29 in am - febrile, tachycardic, tachypnic, no elevated WBC, suspected infection - cultures continue to be negative - Labs sent out for atypicals, flu negative - Legionella urine test - negative - Blood, Urine, and Sputum cultures- no growth after 72 hours (blood cx), no growth urine, sputum normal oral ashley - WBC 17.5 (11/01) from 11.3 (previous day) - Procalcitonin from 2.05 (10/29) to 0.27 (11/01) - Primaxin Q6H, vanco Q12 (10/27/18) - Vanc IVPB Q8hr (11/01) now - Vanco trough 10/29 - 12.1, 10/31 - 14.9, next vanc through 11/02 @4:30 am - continue Mucomyst 4ml INH q4 - Started Atrovent 0.5 Q6hrs PRN - Spiriva 1 puff daily - Solumedrol 40mg IVP q8 - Tessalon Perles 100mg po tid - Mucinex 600mg po bid - Echo ordered - left ventricle systolic function normal, EF is 65-70%, transmitral doppler flow pattern is grade I abnormal relaxation patterns, there is moderate severe pulmonary hypertension. - Consult community health program coordinator Dr Urbano -Will order repeat CXR today, Continue Antibiotics, Continue steroids - Consult ID recs Dr. Summers -cultures thus far neg, denies diarrhea, to complete 7 days IV rx then reculture - patient on Bipap, encouraged to keep Bipap on - patient on 1:1 to monitor for mask removal and consequently desaturating. Patient on video monitoring as well. NOTE: patient has a history of smoking of 1/2 pack a day, quitted 15 years ago. had a long standing history of smoking, from lung CA. Tachycardia stable SVT 10/31 - HR now 90-100s, asymptomatic - 10/31 EKG- Supraventricular tachycardia, no WPW - 10/31 repeat EKG - sinus tachycardia - will continue to monitor vitals - adviced patient to keep nonrebreather mask at all time - now on BIPAP - Patient placed on video monitoring due to taking her mask off and subsequently desaturating - Cardio consult Dr Warren - help is appreciated - - Patient went for Nuclear stress test on 11/01 - f/u official report - metoprolol tartrate 50mg PO BID Parkinson's - continue Mirapex 0.5mg po daily hypokalemia, currently resolved - 10/31: 4.1 -continue to monitor - replete as needed Ulcerative Colitis - no bloody stools reported will continue to monitor for bloody diarrhea Recent Admission for C.Diff - c.diff negative on this admission - no loose stools reported hx of depression - started home med mirtazapine 15mg PO QHS and Nortryptyline HCL 50mg PO HS Hx of DVT - unknown when DVT Hx - US Doppler LE: neg bilaterally - continue SCDs Prophylactic Measures - GI PPX: Pepcid, Bacid - DVT PPX: SCDs, Hep Q8 - Diet: Reg Diet (soft) with 3 Ensure Enlive-strawberry - Palliative Care consult: DNr/DNI, POLST on chart, Continue ordinary , supportive measure, Assist with feeding, Promote oral care. - midline requested for patient for poor vascular abscess - not done yet - no labs in records for 11/[address] Veronica Daly, PGY-1 <Geetha Martin V - Last Filed: 11/04/18 08:30> Objective - Vital Signs/Intake and Output Vital Signs (last 24 hours): Temp Pulse Resp BP Pulse Ox 97.2 F L 75 20 158/83 H 97 11/04/18 07:35 11/04/18 07:35 11/04/18 07:35 11/04/18 07:35 11/04/18 07:35 Intake and Output: 11/04/18 11/04/18 06:59 18:59 Intake Total 780 Balance 780 - Medications Medications: Current Medications Acetylcysteine (Acetylcysteine 20%) 4 ml INH RQ4 [facility] Last Admin: 11/04/18 05:03 Dose: 4 ml Benzonatate (Tessalon Perles) 100 mg PO TID [facility] Last Admin: 11/03/18 18:34 Dose: 100 mg Famotidine (Pepcid) 20 mg PO BID [facility] Last Admin: 11/03/18 18:34 Dose: 20 mg Guaifenesin (Mucinex La) 600 mg PO BID [facility] Last Admin: 11/03/18 18:34 Dose: 600 mg Imipenem/Cilastatin Sodium 500 (mg/ Sodium Chloride) 100 mls @ 100 mls/hr IVPB Q6H [facility]; Protocol Last Admin: 11/04/18 05:05 Dose: 100 mls/hr Metronidazole (Flagyl) 500 mg in 100 mls @ 100 mls/hr IVPB Q8H [facility]; Protocol Last Admin: 11/04/18 04:15 Dose: 100 mls/hr Ipratropium [place] (Atrovent) 0.5 mg IH RQ6 PRN PRN Reason: Shortness of Breath Last Admin: 11/04/18 05:03 Dose: 0.5 mg Lactobacillus Acidophilus (Bacid Acidophilus) 1 cap PO BID [facility] Last Admin: 11/03/18 18:34 Dose: 1 cap Methylprednisolone (Solu-Medrol) 40 mg IVP Q12H [facility] Last Admin: 11/03/18 22:22 Dose: 40 mg Metoprolol Tartrate (Lopressor) 50 mg PO BID [facility] Last Admin: 11/03/18 18:34 Dose: 50 mg Mirtazapine (Remeron) 15 mg PO HS [facility] Last Admin: 11/03/18 22:22 Dose: 15 mg Nortriptyline HCl (Pamelor) 50 mg PO HS [facility] Last Admin: 11/03/18 22:22 Dose: 50 mg Pramipexole Dihydrochloride (Mirapex) 0.5 mg PO DAILY [facility] Last Admin: 11/03/18 09:55 Dose: 0.5 mg Tiotropium [place] (Spiriva) 18 mcg INH RQ24 [facility] Last Admin: 11/03/18 09:16 Dose: 18 mcg - Labs Labs: 11/04/18 06:58 11/04/18 06:58 PT 17.8 SECONDS (9.7-12.2) H 10/27/18 12:15 INR 1.6 10/27/18 12:15 APTT 33 SECONDS (21-34) 10/27/18 12:15 Attending/Attestation - Attestation I have personally seen and examined this patient.: Yes I have fully participated in the care of the patient.: Yes I have reviewed all pertinent clinical information, including history, physical exam and plan: Yes Notes (Text): This is late computer entry for 11/01/18. Patient seen, examined, and case discussed with day-time resident. Discussed with cardiology, unclear etiology to tachycardia if from scar from l ungs or from ischemia. Patient has prominent smoking history which would be a risk factor for heart disease. patient recommended for nuclear stress test which she underwent in the morning. Patient started on beta-[place] by cardiology. We will repeat procalcitonin to see if improving. Patient to continue IV abx to cover. Patient to continue IV steroids. Patient is refusing rehab; discussed with case management.
[2018-11-01 07:08] LABS: BASO % 0.1 % (0.0-2.0); HEMOGLOBIN 10.3 g/dL (11.0-16.0); LYMPH # 1.2 K/uL (1.0-4.3); LYMPH % 6.7 % (20.0-40.0); MEAN CELL VOLUME 97.1 fL (81.0-99.0); MEAN CORPUSCULAR HEMOGLOBIN 31.8 pg (27.0-31.0); MEAN CORPUSCULAR HGB CONC 32.8 g/dL (33.0-37.0); MEAN PLATELET VOLUME 8.7 fL (7.2-11.7); MONO # 1.2 K/uL (0.0-0.8); MONO % 7.1 % (0.0-10.0); NEUT # 15.1 K/uL (1.8-7.0); NEUT % 86.1 % (50.0-75.0); PLATELET COUNT 309 K/uL (130-400); RBC 3.24 Mil/uL (3.80-5.20); RED CELL DISTRIBUTION WIDTH 14.1 % (11.5-14.5); WHITE BLOOD COUNT 17.5 K/uL (4.8-10.8)
[2018-11-01 07:15] LABS: ALB/GLOB RATIO 0.9 (1.0-2.1); ALBUMIN 2.9 g/dL (3.5-5.0); ALT/SGPT 65 U/L (9-52); AST/SGOT 78 U/L (14-36); BLOOD UREA NITROGEN 26 mg/dL (7-17); CALCIUM 8.3 mg/dl (8.6-10.4); GFR NON-AFRICAN AMERICAN > 60
[2018-11-01] MEDS ORDERED: Caffeine Citrated **INJ** 20 MG/ML IV ONE (08:10)
[2018-11-01 09:04] LABS: EOSINOPHIL 1 % (0-4); LYMPHOCYTE 10 % (20-40); MONOCYTE 6 % (0-10); NEUTROPHIL 83 % (50-75); PLATELET ESTIMATE NORMAL (NORMAL); TOTAL CELLS COUNTED 100
[2018-11-01 09:05] LABS: ANISOCYTOSIS SLIGHT; HYPOCHROMIC SLIGHT; POIKILOCYTOSIS SLIGHT
[2018-11-01] MEDS: Lactobacillus Acidophilus 500 MU Cap PO SCH ×2 (10:49→19:00)
[2018-11-01] MEDS: guaiFENesin 600 mg ER Tab PO SCH ×2 (10:50→19:00)
--- NOTE | 2018-11-01 12:09 | CARD ---
APPROVED REPORT Date of service: 10/31/2018 EKG Measurement Heart [id number] <Conclusion> Supraventricular tachycardia Low voltage QRS Cannot rule out Anterior infarct, age undetermined Abnormal ECG
--- NOTE | 2018-11-01 12:09 | CARD ---
APPROVED REPORT Date of service: 10/31/2018 EKG Measurement Heart [id number] <Conclusion> Sinus tachycardia with frequent premature ventricular complexes Low voltage QRS Nonspecific T wave abnormality Abnormal ECG
--- NOTE | 2018-11-01 12:56 | CP.PCM.PN ---
Subjective - Date & Time of Evaluation Date of Evaluation: 11/01/18 Time of Evaluation: 09:20 - Subjective Subjective: Patient seen and examined at bedside, lying down comfortably. Afebrile and in no acute distress. Denies chest pain, fever/chills SpO2 97% on Mask LE Duplex (10/30/18): No evidence of deep or superficial thrombosis bilaterally. Normal valve function bilaterally Patient having stress test today with Dr. Warren Will order repeat CXR today Continue Antibiotics Continue steroids Objective - Vital Signs/Intake and Output Vital Signs (last 24 hours): Temp Pulse Resp BP Pulse Ox 98.2 F 104 H 18 146/78 97 11/01/18 07:10 11/01/18 07:10 11/01/18 07:10 11/01/18 07:10 11/01/18 07:10 Intake and Output: 11/01/18 11/01/18 06:59 18:59 Intake Total 620 Output Total 2 Balance 618 - Medications Medications: Current Medications Acetylcysteine (Acetylcysteine 20%) 4 ml INH RQ4 [facility] Last Admin: 11/01/18 11:26 Dose: Not Given Benzonatate (Tessalon Perles) 100 mg PO TID [facility] Last Admin: 11/01/18 10:50 Dose: Not Given Famotidine (Pepcid) 20 mg PO BID [facility] Last Admin: 11/01/18 10:50 Dose: Not Given Guaifenesin (Mucinex La) 600 mg PO BID [facility] Last Admin: 11/01/18 10:50 Dose: Not Given Heparin Sodium (Porcine) (Heparin) 5,000 units SC Q8 [facility] Last Admin: 11/01/18 05:27 Dose: 5,000 units Vancomycin/Sodium Chloride (Vancomycin 1 Gm/Ns 200 Ml) 1 gm in 200 mls @ 133 mls/hr IVPB Q12H [facility]; Protocol Stop: 11/01/18 17:01 Last Admin: 11/01/18 05:25 Dose: 133 mls/hr Imipenem/Cilastatin Sodium 500 (mg/ Sodium Chloride) 100 mls @ 100 mls/hr IVPB Q6H [facility]; Protocol Last Admin: 11/01/18 05:27 Dose: 100 mls/hr Ipratropium [place] (Atrovent) 0.5 mg IH RQ6 PRN PRN Reason: Shortness of Breath Last Admin: 11/01/18 08:15 Dose: 0.5 mg Lactobacillus Acidophilus (Bacid Acidophilus) 1 cap PO BID [facility] Last Admin: 11/01/18 10:49 Dose: Not Given Methylprednisolone (Solu-Medrol) 40 mg IVP Q8H [facility] Last Admin: 11/01/18 12:00 Dose: Not Given Metoprolol Tartrate (Lopressor) 50 mg PO BID [facility] Last Admin: 11/01/18 10:49 Dose: Not Given Mirtazapine (Remeron) 15 mg PO HS [facility] Last Admin: 10/31/18 22:05 Dose: 15 mg Nortriptyline HCl (Pamelor) 50 mg PO HS [facility] Last Admin: 10/31/18 22:05 Dose: 50 mg Pramipexole Dihydrochloride (Mirapex) 0.5 mg PO DAILY [facility] Last Admin: 10/31/18 09:58 Dose: 0.5 mg Tiotropium [place] (Spiriva) 18 mcg INH RQ24 [facility] Last Admin: 10/31/18 14:00 Dose: Not Given - Labs Labs: 11/01/18 06:52 11/01/18 06:52 PT 17.8 SECONDS (9.7-12.2) H 10/27/18 12:15 INR 1.6 10/27/18 12:15 APTT 33 SECONDS (21-34) 10/27/18 12:15 Assessment and Plan (1) Pneumonia Status: Acute (2) Ulcerative colitis Status: Acute
--- NOTE | 2018-11-01 15:04 | RAD ---
HISTORY: f/u pneumonia COMPARISON: Chest x-ray performed 10/27/18 TECHNIQUE: Chest, one view. FINDINGS: LUNGS: Moderate interstitial prominence may reflect infection or edema. PLEURA: Small bilateral pleural effusions. No definite pneumothorax . CARDIOVASCULAR: Borderline cardiomegaly. Atherosclerotic calcification present. OSSEOUS STRUCTURES: Degenerative changes. Osseous demineralization. VISUALIZED UPPER ABDOMEN: Unremarkable. OTHER FINDINGS: None. IMPRESSION: Moderate interstitial prominence may reflect infection or edema. Small bilateral pleural effusions.
--- NOTE | 2018-11-01 17:22 | CP.PCM.PN ---
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 with hypoxemia driving tachycardia Objective - Vital Signs/Intake and Output Vital Signs (last 24 hours): Temp Pulse Resp BP Pulse Ox 98.2 F 104 H 18 146/78 97 11/01/18 07:10 11/01/18 07:10 11/01/18 07:10 11/01/18 07:10 11/01/18 07:10 Intake and Output: 11/01/18 11/01/18 06:59 18:59 Intake Total 620 300 Output Total 2 Balance 618 300 - Medications Medications: Current Medications Acetylcysteine (Acetylcysteine 20%) 4 ml INH RQ4 [facility] Last Admin: 11/01/18 11:26 Dose: Not Given Benzonatate (Tessalon Perles) 100 mg PO TID [facility] Last Admin: 11/01/18 13:32 Dose: 100 mg Famotidine (Pepcid) 20 mg PO BID [facility] Last Admin: 11/01/18 10:50 Dose: Not Given Guaifenesin (Mucinex La) 600 mg PO BID [facility] Last Admin: 11/01/18 10:50 Dose: Not Given Heparin Sodium (Porcine) (Heparin) 5,000 units SC Q8 [facility] Last Admin: 11/01/18 13:32 Dose: 5,000 units Imipenem/Cilastatin Sodium 500 (mg/ Sodium Chloride) 100 mls @ 100 mls/hr IVPB Q6H [facility]; Protocol Last Admin: 11/01/18 17:00 Dose: 100 mls/hr Ipratropium [place] (Atrovent) 0.5 mg IH RQ6 PRN PRN Reason: Shortness of Breath Last Admin: 11/01/18 08:15 Dose: 0.5 mg Lactobacillus Acidophilus (Bacid Acidophilus) 1 cap PO BID [facility] Last Admin: 11/01/18 10:49 Dose: Not Given Methylprednisolone (Solu-Medrol) 40 mg IVP Q8H [facility] Last Admin: 11/01/18 12:00 Dose: Not Given Metoprolol Tartrate (Lopressor) 50 mg PO BID [facility] Last Admin: 11/01/18 10:49 Dose: Not Given Mirtazapine (Remeron) 15 mg PO HS [facility] Last Admin: 12/20/18 22:05 Dose: 15 mg Nortriptyline HCl (Pamelor) 50 mg PO HS [facility] Last Admin: 10/31/18 22:05 Dose: 50 mg Pramipexole Dihydrochloride (Mirapex) 0.5 mg PO DAILY [facility] Last Admin: 11/01/18 13:31 Dose: 0.5 mg Tiotropium [place] (Spiriva) 18 mcg INH RQ24 [facility] Last Admin: 10/31/18 14:00 Dose: Not Given - Labs Labs: 11/01/18 06:52 11/01/18 06:52 PT 17.8 SECONDS (9.7-12.2) H 10/27/18 12:15 INR 1.6 10/27/18 12:15 APTT 33 SECONDS (21-34) 10/27/18 12:15 - Constitutional Appears: Well - Head Exam Head Exam: ATRAUMATIC, NORMAL INSPECTION, NORMOCEPHALIC - Eye Exam Eye Exam: EOMI, Normal appearance, PERRL Pupil Exam: NORMAL ACCOMODATION, PERRL - ENT Exam ENT Exam: Mucous Membranes Moist, Normal Exam - Neck Exam Neck Exam: Full ROM, Normal Inspection. absent: Lymphadenopathy - Respiratory Exam Respiratory Exam: Clear to Ausculation Bilateral, NORMAL BREATHING PATTERN - Cardiovascular Exam Cardiovascular Exam: REGULAR RHYTHM, +S1, +S2, Murmur - GI/Abdominal Exam GI & Abdominal Exam: Soft, Normal Bowel Sounds. absent: Tenderness - Extremities Exam Extremities Exam: Full ROM, Normal Capillary Refill, Normal Inspection. absent: Joint Swelling, Pedal Edema - Back Exam Back Exam: NORMAL INSPECTION - Neurological Exam Neurological Exam: Alert, Awake, CN II-XII Intact, Normal Gait, Oriented x3 - Psychiatric Exam Psychiatric exam: Normal Affect, Normal Mood - Skin Skin Exam: Dry, Intact, Normal Color, Warm Assessment and Plan (1) Tachycardia Assessment & Plan: cont bb etiology ? re-entry vs. SVT Status: Acute (2) SVT (supraventricular tachycardia) Status: Acute (3) SOB (shortness of breath) Status: Acute (4) Pulmonary hypertension Assessment & Plan: may benefit from RHCx to assess response to vasodilators and rx Status: Acute (5) Pneumonia Status: Acute
--- NOTE | 2018-11-01 18:21 | CP.PCM.PN ---
Subjective - Date & Time of Evaluation Date of Evaluation: 11/01/18 Time of Evaluation: 08:00 - Subjective Subjective: Denies chest pain, fever/chills SpO2 97% on Mask LE Duplex (10/30/18): No evidence of deep or superficial thrombosis bilaterally. Normal valve function bilaterally Objective - Vital Signs/Intake and Output Vital Signs (last 24 hours): Temp Pulse Resp BP Pulse Ox 98.0 F 96 H 20 132/71 97 11/01/18 15:00 11/01/18 15:00 11/01/18 15:00 11/01/18 15:00 11/01/18 15:00 Intake and Output: 11/01/18 11/01/18 06:59 18:59 Intake Total 620 300 Output Total 2 Balance 618 300 - Medications Medications: Current Medications Acetylcysteine (Acetylcysteine 20%) 4 ml INH RQ4 [facility] Last Admin: 11/01/18 17:55 Dose: Not Given Benzonatate (Tessalon Perles) 100 mg PO TID [facility] Last Admin: 11/01/18 13:32 Dose: 100 mg Famotidine (Pepcid) 20 mg PO BID [facility] Last Admin: 11/01/18 10:50 Dose: Not Given Guaifenesin (Mucinex La) 600 mg PO BID [facility] Last Admin: 11/01/18 10:50 Dose: Not Given Heparin Sodium (Porcine) (Heparin) 5,000 units SC Q8 [facility] Last Admin: 11/01/18 13:32 Dose: 5,000 units Imipenem/Cilastatin Sodium 500 (mg/ Sodium Chloride) 100 mls @ 100 mls/hr IVPB Q6H [facility]; Protocol Last Admin: 11/01/18 17:00 Dose: 100 mls/hr Ipratropium [place] (Atrovent) 0.5 mg IH RQ6 PRN PRN Reason: Shortness of Breath Last Admin: 11/01/18 08:15 Dose: 0.5 mg Lactobacillus Acidophilus (Bacid Acidophilus) 1 cap PO BID [facility] Last Admin: 11/01/18 10:49 Dose: Not Given Methylprednisolone (Solu-Medrol) 40 mg IVP Q8H [facility] Last Admin: 11/01/18 17:21 Dose: 40 mg Metoprolol Tartrate (Lopressor) 50 mg PO BID [facility] Last Admin: 12/21/18 10:49 Dose: Not Given Mirtazapine (Remeron) 15 mg PO HS [facility] Last Admin: 10/31/18 22:05 Dose: 15 mg Nortriptyline HCl (Pamelor) 50 mg PO HS [facility] Last Admin: 10/31/18 22:05 Dose: 50 mg Pramipexole Dihydrochloride (Mirapex) 0.5 mg PO DAILY [facility] Last Admin: 11/01/18 13:31 Dose: 0.5 mg Tiotropium [place] (Spiriva) 18 mcg INH RQ24 [facility] Last Admin: 10/31/18 14:00 Dose: Not Given - Labs Labs: 11/01/18 06:52 11/01/18 06:52 PT 17.8 SECONDS (9.7-12.2) H 10/27/18 12:15 INR 1.6 10/27/18 12:15 APTT 33 SECONDS (21-34) 10/27/18 12:15 - Constitutional Appears: Non-toxic, Confused, Cachectic, Chronically Ill - Head Exam Head Exam: NORMOCEPHALIC - Eye Exam Eye Exam: absent: Scleral icterus - ENT Exam ENT Exam: Mucous Membranes Dry - Neck Exam Neck Exam: absent: Lymphadenopathy - Respiratory Exam Respiratory Exam: Decreased Breath Sounds - Cardiovascular Exam Cardiovascular Exam: REGULAR RHYTHM, +S1, +S2 - GI/Abdominal Exam GI & Abdominal Exam: Distended, Soft - Rectal Exam Rectal Exam: Deferred - Exam Exam: NORMAL INSPECTION - Extremities Exam Extremities Exam: absent: Pedal Edema - Back Exam Back Exam: absent: CVA tenderness (L), CVA tenderness (R) - Neurological Exam Neurological Exam: Alert, Awake, CN II-XII Intact - Psychiatric Exam Psychiatric exam: Depressed Assessment and Plan (1) Fever Status: Acute - Assessment and Plan (Free Text) Assessment: 77-year-old female with past medical history significant for Parkinson's COPD \\\ DVT recent admission was C. difficile who presented to [facility] with complaints of productive cough ongoing fevers and chills cultures thus far neg denies diarrhea to complete 7 days IV rx then reculture
[2018-11-01] MEDS ORDERED: metroNIDAZOLE IV 500 mg/100 ml 500 MG/100 ML BAG IVPB SCH (19:00)
[2018-11-01] MEDS: metroNIDAZOLE IV 500 mg/100 ml 500 MG/100 ML BAG IVPB SCH (21:00)
[2018-11-02] MEDS: Acetylcysteine 20% Inhal Soln (4ml) INH SCH ×6 (00:23→20:43)
[2018-11-02] MEDS: Ipratropium 0.02% Inhal Soln (0.5 mg/2.5 ml) UD IH PRN ×4 (00:23→20:43)
[2018-11-02] MEDS: MethylPREDNISolone 40 mg Vial IVP SCH ×3 (01:20→21:29)
[2018-11-02] MEDS: metroNIDAZOLE IV 500 mg/100 ml 500 MG/100 ML BAG IVPB SCH ×3 (04:28→21:32)
[2018-11-02 07:14] LABS: BASO % 0.1 % (0.0-2.0); EOS % 0.1 % (0.0-4.0); HEMOGLOBIN 11.6 g/dL (11.0-16.0); LYMPH # 0.9 K/uL (1.0-4.3); LYMPH % 6.2 % (20.0-40.0); MEAN CELL VOLUME 97.8 fL (81.0-99.0); MEAN CORPUSCULAR HEMOGLOBIN 31.6 pg (27.0-31.0); MEAN CORPUSCULAR HGB CONC 32.3 g/dL (33.0-37.0); MEAN PLATELET VOLUME 8.5 fL (7.2-11.7); MONO # 0.8 K/uL (0.0-0.8); MONO % 5.3 % (0.0-10.0); NEUT # 12.7 K/uL (1.8-7.0); NEUT % 88.3 % (50.0-75.0); PLATELET COUNT 392 K/uL (130-400); RBC 3.67 Mil/uL (3.80-5.20); RED CELL DISTRIBUTION WIDTH 14.4 % (11.5-14.5); WHITE BLOOD COUNT 14.4 K/uL (4.8-10.8)
[2018-11-02 08:02] LABS: ALB/GLOB RATIO 0.9 (1.0-2.1); ALBUMIN 3.3 g/dL (3.5-5.0); ALT/SGPT 104 U/L (9-52); AST/SGOT 57 U/L (14-36); BLOOD UREA NITROGEN 29 mg/dL (7-17); CALCIUM 8.8 mg/dl (8.6-10.4); GFR NON-AFRICAN AMERICAN > 60
[2018-11-02] MEDS: Tiotropium 18 mcg Cap For Inhalation INH SCH (09:06)
[2018-11-02] MEDS: Lactobacillus Acidophilus 500 MU Cap PO SCH ×2 (10:14→19:23)
[2018-11-02] MEDS: guaiFENesin 600 mg ER Tab PO SCH ×2 (10:14→19:23)
--- NOTE | 2018-11-02 11:22 | CP.PCM.PN ---
<Dyllan Valdes - Last Filed: 11/02/18 14:29> Subjective - Date & Time of Evaluation Date of Evaluation: 11/02/18 Time of Evaluation: 11:22 - Subjective Subjective: PGY3 Note for Dr. Martin; Medicine This patient was seen and examined at bedside this AM; she states she does not like the food here and thats why she is not eating it and is requesting strawberry flavored ensure; she also states she is sad about her . She denies camejo, fevers/chills, cp, sob, abdominal pain, n/v/d/, dysuria/freq/urg or lower extremity pain/swelling. Objective - Vital Signs/Intake and Output Vital Signs (last 24 hours): Temp Pulse Resp BP Pulse Ox 97.9 F 78 20 139/79 100 11/02/18 07:17 11/02/18 07:17 11/02/18 07:17 11/02/18 07:17 11/02/18 07:17 Intake and Output: 11/02/18 11/02/18 06:59 18:59 Intake Total 1150 Balance 1150 - Medications Medications: Current Medications Acetylcysteine (Acetylcysteine 20%) 4 ml INH RQ4 [facility] Last Admin: 11/02/18 09:06 Dose: 4 ml Benzonatate (Tessalon Perles) 100 mg PO TID [facility] Last Admin: 11/02/18 10:14 Dose: 100 mg Famotidine (Pepcid) 20 mg PO BID [facility] Last Admin: 11/02/18 10:14 Dose: 20 mg Guaifenesin (Mucinex La) 600 mg PO BID [facility] Last Admin: 11/02/18 10:14 Dose: 600 mg Heparin Sodium (Porcine) (Heparin) 5,000 units SC Q8 [facility] Last Admin: 11/02/18 05:08 Dose: 5,000 units Imipenem/Cilastatin Sodium 500 (mg/ Sodium Chloride) 100 mls @ 100 mls/hr IVPB Q6H [facility]; Protocol Last Admin: 11/02/18 10:15 Dose: 100 mls/hr Metronidazole (Flagyl) 500 mg in 100 mls @ 100 mls/hr IVPB Q8H [facility]; Protocol Last Admin: 11/02/18 04:28 Dose: 100 mls/hr Vancomycin HCl 1 gm/ Sodium (Chloride) 250 mls @ 166.7 mls/hr IVPB Q8H [facility]; Protocol Last Admin: 11/02/18 04:29 Dose: 166.7 mls/hr Ipratropium [place] (Atrovent) 0.5 mg IH RQ6 PRN PRN Reason: Shortness of Breath Last Admin: 11/02/18 09:06 Dose: 0.5 mg Lactobacillus Acidophilus (Bacid Acidophilus) 1 cap PO BID [facility] Last Admin: 11/02/18 10:14 Dose: 1 cap Methylprednisolone (Solu-Medrol) 40 mg IVP Q8H [facility] Last Admin: 11/02/18 08:59 Dose: 40 mg Metoprolol Tartrate (Lopressor) 50 mg PO BID [facility] Last Admin: 11/02/18 10:14 Dose: 50 mg Mirtazapine (Remeron) 15 mg PO HS [facility] Last Admin: 11/01/18 22:18 Dose: 15 mg Nortriptyline HCl (Pamelor) 50 mg PO HS [facility] Last Admin: 11/01/18 22:19 Dose: 50 mg Pramipexole Dihydrochloride (Mirapex) 0.5 mg PO DAILY [facility] Last Admin: 11/02/18 10:14 Dose: 0.5 mg Tiotropium [place] (Spiriva) 18 mcg INH RQ24 [facility] Last Admin: 11/02/18 09:06 Dose: 18 mcg - Labs Labs: 11/02/18 07:04 11/02/18 07:04 PT 17.8 SECONDS (9.7-12.2) H 10/27/18 12:15 INR 1.6 10/27/18 12:15 APTT 33 SECONDS (21-34) 10/27/18 12:15 Assessment and Plan - Assessment and Plan (Free Text) Assessment: Appears: Non-toxic, No Acute Distress - Head Exam Head Exam: ATRAUMATIC, NORMAL INSPECTION, NORMOCEPHALIC - Eye Exam Eye Exam: EOMI, Normal appearance - ENT Exam ENT Exam: Mucous Membranes Moist, Normal Exam - Neck Exam Neck Exam: Full ROM, Normal Inspection - Respiratory Exam Respiratory Exam: Clear to Ausculation Bilateral, NORMAL BREATHING PATTERN. absent: Rales, Rhonchi, Wheezes - Cardiovascular Exam Cardiovascular Exam: Tachycardia, REGULAR RHYTHM, +S1, +S2 - GI/Abdominal Exam GI & Abdominal Exam: Soft, Normal Bowel Sounds. absent: Distended, Guarding, Tenderness - Extremities Exam Extremities Exam: Full ROM, Normal Inspection. absent: Calf Tenderness, Pedal Edema, Tenderness - Back Exam Back Exam: Full ROM, NORMAL INSPECTION - Neurological Exam Neurological Exam: Alert, Awake - Psychiatric Exam Psychiatric exam: Anxious, Normal Mood - Skin Skin Exam: Dry, Intact, Normal Color, Warm Assessment and Plan - Assessment and Plan (Free Text) Assessment: 77 year old female admitted for multifocal PNA, no acute changes, previous days desaturating, now stable saturation at 99% on BIPAP at this time. HR stable at 90-100s. Plan: Multifocal Pneumonia vs. Pneumonitis; improving Sepsis - CXR: Interval appearance of diffuse reticular opacities and prominent lung markings more prominent in the lower lobes since the previous exam. Possible small left pleural effusion. - Chest CT: Patchy ground-glass opacities and diffuse interstitial septal thickening may represent pneumonitis or pulmonary edema/congestion. Left lung base atelectasis. Small bilateral pleural effusion. Mildly enlarged mediastinal lymph nodes. -Sepsis criteria met: on admission, febrile, tachycardic, elevated WBC at 16.2, suspected infection 10/29 in am - febrile, tachycardic, tachypnic, no elevated WBC, suspected infection - cultures continue to be negative - Labs sent out for atypicals, flu negative - Legionella urine test - negative - Blood, Urine, and Sputum cultures- no growth after 72 hours (blood cx), no growth urine, sputum normal oral ashley - WBC 17.5 (11/01) from 11.3 (previous day) - Procalcitonin from 2.05 (10/29) to 0.27 (11/01) - Primaxin Q6H, vanco Q12 (10/27/18) - Vanc IVPB Q8hr (11/01) now - Vanco trough 10/29 - 12.1, 10/31 - 14.9, next vanc through 11/02 @4:30 am - continue Mucomyst 4ml INH q4 - Started Atrovent 0.5 Q6hrs PRN - Spiriva 1 puff daily - Solumedrol 40mg IVP q8 - Tessalon Perles 100mg po tid - Mucinex 600mg po bid - Echo ordered - left ventricle systolic function normal, EF is 65-70%, t ransmitral doppler flow pattern is grade I abnormal relaxation patterns, there is moderate severe pulmonary hypertension. - Consult watch caser Dr Urbano -Will order repeat CXR today, Continue Antibi otics, Continue steroids - Consult ID recs Dr. Summers -cultures thus far neg, denies diarrhea, to co mplete 7 days IV rx then reculture - patient on Bipap, encouraged to keep Bipap on - patient on 1:1 to monitor for mask removal and consequently desaturating. Patient on video monitoring as well. NOTE: patient has a history of smoking of 1/2 pack a day, quitted 15 years ago. had a long standing history of smoking, from lung CA. Tachycardia; resolved stable SVT 10/31 - HR now 90-100s, asymptomatic - 10/31 EKG- Supraventricular tachycardia, no WPW - 10/31 repeat EKG - sinus tachycardia - will continue to monitor vitals - adviced patient to keep nonrebreather mask at all time - now on BIPAP - Patient placed on video monitoring due to taking her mask off and subsequently desaturating - Cardio consult Dr Warren - help is appreciated - - Patient went for Nuclear stress test on 11/01 - f/u official report - metoprolol tartrate 50mg PO BID Parkinson's - continue Mirapex 0.5mg po daily hypokalemia, currently resolved - 10/31: 4.1 -continue to monitor - replete as needed Ulcerative Colitis - no bloody stools reported will continue to monitor for bloody diarrhea Recent Admission for C.Diff - c.diff negative on this admission - no loose stools reported hx of depression - started home med mirtazapine 15mg PO QHS and Nortryptyline HCL 50mg PO HS -f/u psych; thank you Dr. Berger Hx of DVT - unknown when DVT Hx - US Doppler LE: neg bilaterally - continue SCDs Prophylactic Measures - GI PPX: Pepcid - DVT PPX: SCDs, Hep Q8 - Diet: Reg Diet (soft) with 3 Ensure Enlive-strawberry - Palliative Care consult: DNr/DNI, POLST on chart, Continue ordinary , supportive measure, Assist with feeding, Promote oral care. - midline requested for patient for poor vascular abscess - patient is somewhat depressed; not eating well; ordered ensure strawberry (does NOT like chocolate) for 6x per day with calorie counts; states this time last year and is sad about it; would recommend remeron but will defer to psych Plan discussed and seen with Dr. Veronica Valdes PGY3 <Geetha Martin V - Last Filed: 11/04/18 08:33> Objective - Vital Signs/Intake and Output Vital Signs (last 24 hours): Temp Pulse Resp BP Pulse Ox 97.2 F L 75 20 158/83 H 97 11/04/18 07:35 11/04/18 07:35 11/04/18 07:35 11/04/18 07:35 11/04/18 07:35 Intake and Output: 11/04/18 11/04/18 06:59 18:59 Intake Total 780 Balance 780 - Medications Medications: Current Medications Acetylcysteine (Acetylcysteine 20%) 4 ml INH RQ4 [facility] Last Admin: 11/04/18 05:03 Dose: 4 ml Benzonatate (Tessalon Perles) 100 mg PO TID [facility] Last Admin: 11/03/18 18:34 Dose: 100 mg Famotidine (Pepcid) 20 mg PO BID [facility] Last Admin: 11/03/18 18:34 Dose: 20 mg Guaifenesin (Mucinex La) 600 mg PO BID [facility] Last Admin: 11/03/18 18:34 Dose: 600 mg Imipenem/Cilastatin Sodium 500 (mg/ Sodium Chloride) 100 mls @ 100 mls/hr IVPB Q6H [facility]; Protocol Last Admin: 11/04/18 05:05 Dose: 100 mls/hr Metronidazole (Flagyl) 500 mg in 100 mls @ 100 mls/hr IVPB Q8H [facility]; Protocol Last Admin: 11/04/18 04:15 Dose: 100 mls/hr Ipratropium [place] (Atrovent) 0.5 mg IH RQ6 PRN PRN Reason: Shortness of Breath Last Admin: 11/04/18 05:03 Dose: 0.5 mg Lactobacillus Acidophilus (Bacid Acidophilus) 1 cap PO BID [facility] Last Admin: 11/03/18 18:34 Dose: 1 cap Methylprednisolone (Solu-Medrol) 40 mg IVP Q12H [facility] Last Admin: 11/03/18 22:22 Dose: 40 mg Metoprolol Tartrate (Lopressor) 50 mg PO BID [facility] Last Admin: 11/03/18 18:34 Dose: 50 mg Mirtazapine (Remeron) 15 mg PO HS [facility] Last Admin: 11/03/18 22:22 Dose: 15 mg Nortriptyline HCl (Pamelor) 50 mg PO HS [facility] Last Admin: 11/03/18 22:22 Dose: 50 mg Pramipexole Dihydrochloride (Mirapex) 0.5 mg PO DAILY [facility] Last Admin: 11/03/18 09:55 Dose: 0.5 mg Tiotropium [place] (Spiriva) 18 mcg INH RQ24 [facility] Last Admin: 11/03/18 09:16 Dose: 18 mcg - Labs Labs: 11/04/18 06:58 11/04/18 06:58 PT 17.8 SECONDS (9.7-12.2) H 10/27/18 12:15 INR 1.6 10/27/18 12:15 APTT 33 SECONDS (21-34) 10/27/18 12:15 Attending/Attestation - Attestation I have personally seen and examined this patient.: Yes I have fully participated in the care of the patient.: Yes I have reviewed all pertinent clinical information, including history, physical exam and plan: Yes Notes (Text): This is late computer entry for 11/02/18. Patient seen, examined and case discussed with medical assistant cardiology. Patient seen this morning. Patient appears down. About this time of year, her has passed. We have asked psychiatry to optimize her anti-depressants. Patient to continue IV abx. Vancomycin held given elevated vanco trough. We are awaiting final read of nuclear stress test. Patient's breathing has improved since my initial encounter. We are encouraging her to eat to gather her strength. Procalcitonin has improved while on IV abx.
[2018-11-02 11:25] LABS: BANDS 2 % (0-2); LYMPHOCYTE 5 % (20-40); MONOCYTE 5 % (0-10); NEUTROPHIL 88 % (50-75); TOTAL CELLS COUNTED 100
[2018-11-02 11:27] LABS: ANISOCYTOSIS SLIGHT; GIANT PLATELETS PRESENT; LARGE PLATELETS PRESENT; PLATELET ESTIMATE NORMAL (NORMAL)
[2018-11-02 11:28] LABS: HYPOCHROMIC SLIGHT; POLYCHROMIC SLIGHT; TOXIC GRANULATION PRESENT
[2018-11-02 11:29] LABS: PLATELET CLUMPS PRESENT
[2018-11-02] MEDS ORDERED: MethylPREDNISolone 40 mg Vial IVP SCH (16:30)
--- NOTE | 2018-11-02 17:14 | CP.PCM.PN ---
Subjective - Date & Time of Evaluation Date of Evaluation: 11/02/18 Time of Evaluation: 14:20 - Subjective Subjective: patient seen and examined Periods of confusion On examination patient off BiPAP and in no distress Afebrile Objective - Vital Signs/Intake and Output Vital Signs (last 24 hours): Temp Pulse Resp BP Pulse Ox 97.9 F 78 20 139/79 100 11/02/18 07:17 11/02/18 07:17 11/02/18 07:17 11/02/18 07:17 11/02/18 07:17 Intake and Output: 11/02/18 11/02/18 06:59 18:59 Intake Total 1150 500 Balance 1150 500 - Medications Medications: Current Medications Acetylcysteine (Acetylcysteine 20%) 4 ml INH RQ4 [facility] Last Admin: 11/02/18 15:40 Dose: Not Given Benzonatate (Tessalon Perles) 100 mg PO TID [facility] Last Admin: 11/02/18 13:38 Dose: 100 mg Famotidine (Pepcid) 20 mg PO BID [facility] Last Admin: 11/02/18 10:14 Dose: 20 mg Guaifenesin (Mucinex La) 600 mg PO BID [facility] Last Admin: 11/02/18 10:14 Dose: 600 mg Imipenem/Cilastatin Sodium 500 (mg/ Sodium Chloride) 100 mls @ 100 mls/hr IVPB Q6H [facility]; Protocol Last Admin: 11/02/18 10:15 Dose: 100 mls/hr Metronidazole (Flagyl) 500 mg in 100 mls @ 100 mls/hr IVPB Q8H [facility]; Protocol Last Admin: 11/02/18 12:30 Dose: 100 mls/hr Vancomycin HCl 1 gm/ Sodium (Chloride) 250 mls @ 166.7 mls/hr IVPB Q8H [facility]; Protocol Last Admin: 11/02/18 13:37 Dose: 166.7 mls/hr Ipratropium [place] (Atrovent) 0.5 mg IH RQ6 PRN PRN Reason: Shortness of Breath Last Admin: 11/02/18 09:06 Dose: 0.5 mg Lactobacillus Acidophilus (Bacid Acidophilus) 1 cap PO BID [facility] Last Admin: 11/02/18 10:14 Dose: 1 cap Methylprednisolone (Solu-Medrol) 40 mg IVP Q12H [facility] Metoprolol Tartrate (Lopressor) 50 mg PO BID [facility] Last Admin: 11/02/18 10:14 Dose: 50 mg Mirtazapine (Remeron) 15 mg PO HS [facility] Last Admin: 11/01/18 22:18 Dose: 15 mg Nortriptyline HCl (Pamelor) 50 mg PO HS [facility] Last Admin: 11/01/18 22:19 Dose: 50 mg Pramipexole Dihydrochloride (Mirapex) 0.5 mg PO DAILY [facility] Last Admin: 11/02/18 10:14 Dose: 0.5 mg Tiotropium [place] (Spiriva) 18 mcg INH RQ24 [facility] Last Admin: 11/02/18 09:06 Dose: 18 mcg - Labs Labs: 11/02/18 07:04 11/02/18 07:04 PT 17.8 SECONDS (9.7-12.2) H 10/27/18 12:15 INR 1.6 10/27/18 12:15 APTT 33 SECONDS (21-34) 10/27/18 12:15 - Head Exam Head Exam: ATRAUMATIC, NORMOCEPHALIC - Eye Exam Eye Exam: Normal appearance - ENT Exam ENT Exam: Mucous Membranes Moist - Respiratory Exam Respiratory Exam: Clear to Ausculation Bilateral - Cardiovascular Exam Cardiovascular Exam: REGULAR RHYTHM - GI/Abdominal Exam GI & Abdominal Exam: Soft, Normal Bowel Sounds Assessment and Plan (1) Pneumonia Assessment & Plan: Continue antibiotics BiPAP as needed Taper steroids Status: Acute (2) Ulcerative colitis Status: Acute
[2018-11-03] MEDS: Acetylcysteine 20% Inhal Soln (4ml) INH SCH ×6 (00:15→19:45)
[2018-11-03] MEDS: Ipratropium 0.02% Inhal Soln (0.5 mg/2.5 ml) UD IH PRN ×4 (03:27→19:45)
[2018-11-03] MEDS: metroNIDAZOLE IV 500 mg/100 ml 500 MG/100 ML BAG IVPB SCH ×3 (04:55→22:22)
[2018-11-03 08:34] LABS: EOS % 0.1 % (0.0-4.0); HEMOGLOBIN 10.1 g/dL (11.0-16.0); LYMPH # 0.8 K/uL (1.0-4.3); LYMPH % 6.7 % (20.0-40.0); MEAN CELL VOLUME 97.4 fL (81.0-99.0); MEAN CORPUSCULAR HEMOGLOBIN 32.9 pg (27.0-31.0); MEAN CORPUSCULAR HGB CONC 33.8 g/dL (33.0-37.0); MEAN PLATELET VOLUME 8.5 fL (7.2-11.7); MONO # 0.7 K/uL (0.0-0.8); MONO % 6.3 % (0.0-10.0); NEUT # 10.1 K/uL (1.8-7.0); NEUT % 86.9 % (50.0-75.0); PLATELET COUNT 323 K/uL (130-400); RBC 3.07 Mil/uL (3.80-5.20); RED CELL DISTRIBUTION WIDTH 14.2 % (11.5-14.5); WHITE BLOOD COUNT 11.6 K/uL (4.8-10.8)
[2018-11-03 08:50] LABS: ALB/GLOB RATIO 0.9 (1.0-2.1); ALBUMIN 2.5 g/dL (3.5-5.0); ALT/SGPT 61 U/L (9-52); AST/SGOT 20 U/L (14-36); BLOOD UREA NITROGEN 28 mg/dL (7-17); CALCIUM 7.9 mg/dl (8.6-10.4); GFR NON-AFRICAN AMERICAN > 60
[2018-11-03] MEDS: Tiotropium 18 mcg Cap For Inhalation INH SCH (09:16)
--- NOTE | 2018-11-03 09:51 | CP.PCM.PN ---
<Dyllan Valdes - Last Filed: 11/03/18 15:49> Subjective - Date & Time of Evaluation Date of Evaluation: 11/03/18 Time of Evaluation: 15:49 - Subjective Subjective: PGY3 Note for Dr. Martin; Medicine This patient was seen and examined at bedside this AM; denies any acute complaints or overnight events denies all symptoms today. Objective - Vital Signs/Intake and Output Vital Signs (last 24 hours): Temp Pulse Resp BP Pulse Ox 98.0 F 76 20 120/62 95 11/03/18 07:00 11/03/18 07:43 11/03/18 07:00 11/03/18 07:00 11/03/18 07:00 Intake and Output: 11/03/18 11/03/18 06:59 18:59 Intake Total 700 Balance 700 - Medications Medications: Current Medications Acetylcysteine (Acetylcysteine 20%) 4 ml INH RQ4 [facility] Last Admin: 11/03/18 09:16 Dose: 4 ml Benzonatate (Tessalon Perles) 100 mg PO TID [facility] Last Admin: 11/02/18 19:22 Dose: 100 mg Famotidine (Pepcid) 20 mg PO BID [facility] Last Admin: 11/02/18 19:23 Dose: 20 mg Guaifenesin (Mucinex La) 600 mg PO BID [facility] Last Admin: 11/02/18 19:23 Dose: 600 mg Imipenem/Cilastatin Sodium 500 (mg/ Sodium Chloride) 100 mls @ 100 mls/hr IVPB Q6H [facility]; Protocol Last Admin: 11/03/18 04:00 Dose: 100 mls/hr Metronidazole (Flagyl) 500 mg in 100 mls @ 100 mls/hr IVPB Q8H [facility]; Protocol Last Admin: 11/03/18 04:55 Dose: 100 mls/hr Vancomycin HCl 1 gm/ Sodium (Chloride) 250 mls @ 166.7 mls/hr IVPB Q8H [facility]; Protocol Last Admin: 11/03/18 06:00 Dose: 166.7 mls/hr Ipratropium [place] (Atrovent) 0.5 mg IH RQ6 PRN PRN Reason: Shortness of Breath Last Admin: 11/03/18 09:16 Dose: 0.5 mg Lactobacillus Acidophilus (Bacid Acidophilus) 1 cap PO BID [facility] Last Admin: 11/02/18 19:23 Dose: 1 cap Methylprednisolone (Solu-Medrol) 40 mg IVP Q12H [facility] Last Admin: 11/02/18 21:29 Dose: 40 mg Metoprolol Tartrate (Lopressor) 50 mg PO BID [facility] Last Admin: 11/02/18 19:25 Dose: Not Given Mirtazapine (Remeron) 15 mg PO HS [facility] Last Admin: 11/02/18 21:28 Dose: 15 mg Nortriptyline HCl (Pamelor) 50 mg PO HS [facility] Last Admin: 11/02/18 21:28 Dose: 50 mg Pramipexole Dihydrochloride (Mirapex) 0.5 mg PO DAILY [facility] Last Admin: 11/02/18 10:14 Dose: 0.5 mg Tiotropium [place] (Spiriva) 18 mcg INH RQ24 [facility] Last Admin: 11/03/18 09:16 Dose: 18 mcg - Labs Labs: 11/03/18 08:14 11/03/18 08:14 PT 17.8 SECONDS (9.7-12.2) H 10/27/18 12:15 INR 1.6 10/27/18 12:15 APTT 33 SECONDS (21-34) 10/27/18 12:15 - Constitutional Appears: Non-toxic, Cachectic, Chronically Ill - Head Exam Head Exam: ATRAUMATIC - Eye Exam Eye Exam: EOMI, Normal appearance - ENT Exam ENT Exam: Mucous Membranes Moist - Neck Exam Neck Exam: Full ROM. absent: Lymphadenopathy - Respiratory Exam Respiratory Exam: Rales, Wheezes. absent: Clear to Ausculation Bilateral, Rhonc hi, NORMAL BREATHING PATTERN - Cardiovascular Exam Cardiovascular Exam: REGULAR RHYTHM, +S1, +S2 - GI/Abdominal Exam GI & Abdominal Exam: Soft, Normal Bowel Sounds. absent: Tenderness - Extremities Exam Extremities Exam: Full ROM. absent: Calf Tenderness - Back Exam Back Exam: NORMAL INSPECTION. absent: CVA tenderness (L), CVA tenderness (R) - Neurological Exam Neurological Exam: Alert, Awake - Psychiatric Exam Psychiatric exam: Normal Affect Additional comments: Patient is somewhat more out of it today on exam during - Skin Skin Exam: Warm Assessment and Plan - Assessment and Plan (Free Text) Assessment: 77 year old female admitted for multifocal PNA, no acute changes, previous days desaturating, now stable saturation at 99% on BIPAP at this time. HR stable at 90-100s now improving Multifocal Pneumonia vs. Pneumonitis; improving Sepsis -Sepsis criteria met: on admission, febrile, tachycardic, elevated WBC at 16.2, suspected infection Imaging: - CXR: Interval appearance of diffuse reticular opacities and prominent lung markings more prominent in the lower lobes since the previous exam. Possible small left pleural effusion. - Chest CT: Patchy ground-glass opacities and diffuse interstitial septal thickening may represent pneumonitis or pulmonary edema/congestion. Left lung base atelectasis. Small bilateral pleural effusion. Mildly enlarged mediastinal lymph nodes. - Echo ordered - left ventricle systolic function normal, EF is 65-70%, transmitral doppler flow pattern is grade I abnormal relaxation patterns, there is moderate severe pulmonary hypertension. Meds: -Vanco mycin stopped b/c of supratherapetuic level; was to end 11/04 anyway -c/w metronidazole and imipenem - continue Mucomyst 4ml INH q4 - Started Atrovent 0.5 Q6hrs PRN - Spiriva 1 puff daily - Solumedrol 40mg IVP q8 - Tessalon Perles 100mg po tid - Mucinex 600mg po bid Consults: - Consult security inspector Dr Urbano -Will order repeat CXR today, Continue Antibiotics, Continue steroids - Consult ID recs Dr. Summers -cultures thus far neg, denies diarrhea, to complete 7 days IV rx then reculture - patient on Bipap, encouraged to keep Bipap on - patient on 1:1 to monitor for mask removal and consequently desaturating. Patient on video monitoring as well. NOTE: patient has a history of smoking of 1/2 pack a day, quitted 15 years ago. had a long standing history of smoking, from lung CA. Tachycardia; resolved stable SVT 20 - HR now 90-100s, asymptomatic - 10/31 EKG- Supraventricular tachycardia, no WPW - 10/31 repeat EKG - sinus tachycardia - will continue to monitor vitals - adviced patient to keep nonrebreather mask at all time - now on BIPAP - Patient placed on video monitoring due to taking her mask off and subsequently desaturating - Cardio consult Dr Warren - help is appreciated - - Patient went for Nuclear stress test on 11/01 - f/u official report - metoprolol tartrate 50mg PO BID Parkinson's - continue Mirapex 0.5mg po daily hypokalemia, currently resolved - 10/31: 4.1 -continue to monitor - replete as needed Ulcerative Colitis - no bloody stools reported will continue to monitor for bloody diarrhea Recent Admission for C.Diff - c.diff negative on this admission - no loose stools reported hx of depression - started home med mirtazapine 15mg PO QHS and Nortryptyline HCL 50mg PO HS -f/u psych; thank you Dr. Berger Hx of DVT - unknown when DVT Hx - US Doppler LE: neg bilaterally - continue SCDs Prophylactic Measures - GI PPX: Pepcid - DVT PPX: SCDs, Hep Q8 - Diet: Reg Diet (soft) with 3 Ensure Enlive-strawberry - Palliative Care consult: DNr/DNI, POLST on chart, Continue ordinary , supportive measure, Assist with feeding, Promote oral care. - midline requested for patient for poor vascular abscess - patient is somewhat depressed; not eating well; ordered ensure strawberry (cardoso s NOT like chocolate) for 6x per day with calorie counts; states this time last year and is sad about it; would recommend remeron but will defer to psych Plan discussed and seen with Dr. Veronica Valdes PGY3 <Geetha Martin V - Last Filed: 11/04/18 08:36> Objective - Vital Signs/Intake and Output Vital Signs (last 24 hours): Temp Pulse Resp BP Pulse Ox 97.2 F L 75 20 158/83 H 97 11/04/18 07:35 11/04/18 07:35 11/04/18 07:35 11/04/18 07:35 11/04/18 07:35 Intake and Output: 11/04/18 11/04/18 06:59 18:59 Intake Total 780 Balance 780 - Medications Medications: Current Medications Acetylcysteine (Acetylcysteine 20%) 4 ml INH RQ4 [facility] Last Admin: 11/04/18 05:03 Dose: 4 ml Benzonatate (Tessalon Perles) 100 mg PO TID [facility] Last Admin: 11/03/18 18:34 Dose: 100 mg Famotidine (Pepcid) 20 mg PO BID [facility] Last Admin: 11/03/18 18:34 Dose: 20 mg Guaifenesin (Mucinex [place]) 600 mg PO BID [facility] Last Admin: 11/03/18 18:34 Dose: 600 mg Imipenem/Cilastatin Sodium 500 (mg/ Sodium Chloride) 100 mls @ 100 mls/hr IVPB Q6H [facility]; Protocol Last Admin: 11/04/18 05:05 Dose: 100 mls/hr Metronidazole (Flagyl) 500 mg in 100 mls @ 100 mls/hr IVPB Q8H [facility]; Protocol Last Admin: 11/04/18 04:15 Dose: 100 mls/hr Ipratropium [place] (Atrovent) 0.5 mg IH RQ6 PRN PRN Reason: Shortness of Breath Last Admin: 11/04/18 05:03 Dose: 0.5 mg Lactobacillus Acidophilus (Bacid Acidophilus) 1 cap PO BID [facility] Last Admin: 11/03/18 18:34 Dose: 1 cap Methylprednisolone (Solu-Medrol) 40 mg IVP Q12H [facility] Last Admin: 11/03/18 22:22 Dose: 40 mg Metoprolol Tartrate (Lopressor) 50 mg PO BID [facility] Last Admin: 11/03/18 18:34 Dose: 50 mg Mirtazapine (Remeron) 15 mg PO HS [facility] Last Admin: 11/03/18 22:22 Dose: 15 mg Nortriptyline HCl (Pamelor) 50 mg PO HS [facility] Last Admin: 11/03/18 22:22 Dose: 50 mg Pramipexole Dihydrochloride (Mirapex) 0.5 mg PO DAILY [facility] Last Admin: 11/03/18 09:55 Dose: 0.5 mg Tiotropium [place] (Spiriva) 18 mcg INH RQ24 [facility] Last Admin: 11/03/18 09:16 Dose: 18 mcg - Labs Labs: 11/04/18 06:58 11/04/18 06:58 PT 17.8 SECONDS (9.7-12.2) H 10/27/18 12:15 INR 1.6 10/27/18 12:15 APTT 33 SECONDS (21-34) 10/27/18 12:15 Attending/Attestation - Attestation I have personally seen and examined this patient.: Yes I have fully participated in the care of the patient.: Yes I have reviewed all pertinent clinical information, including history, physical exam and plan: Yes Notes (Text): This is late computer entry for 11/03/18. Patient seen, examined and case discussed with medical device sales representative. Patient's breathing status improved. Patient is talking comfortably while on nasal canula. Patient's steroids tapered off since yesterday. She had some episodes of confusion but I suspect it is due to the steroid. Patient to complete 7 days of antibiotics today. Vancomycin had d/c since elevated trough and random level remains high. We will repeat ABG tomorrow on room air. We will need to f/u with cardiology regarding nuclear stress test to plan if needs further intervention.
[2018-11-03] MEDS: guaiFENesin 600 mg ER Tab PO SCH ×2 (09:55→18:34)
[2018-11-03] MEDS: MethylPREDNISolone 40 mg Vial IVP SCH ×2 (09:55→22:22)
[2018-11-03] MEDS: Lactobacillus Acidophilus 500 MU Cap PO SCH ×2 (09:55→18:34)
--- NOTE | 2018-11-03 10:19 | PCM.PSYCH ---
Initial Psychiatric Evaluation - Initial Psychiatric Evaluation Type of Admission: Voluntary Chief Complaint (in patient's own words): "I'm OK" History of Present Illness and Precipitating Events: Pt is seen, chart reviewed and case discussed. This is a 77-year-old female, , has 2 children lives with her sister. Consult was requested because of her depressive symptoms and mental status change. The patient has a history of depression and anxiety but she could not elaborate as she is a poor historian and still somewhat confused. She is not oriented to time but oriented to place and person. Her memory is 3 out of 3 in immediate recall and 0 out of 3 and 5-minute recall. She denies feeling suicidal and no lauren or psychosis elicited. She admits to feeling depressed but claims it is not severe. As per staff, the patient was much more confused yesterday and attempted to leave not knowing where she was. Past psychiatric: Outpatient treatment for depression Medical history: As per chart Family psych history: Unknown Current Medications: Active Medications Generic Name Dose Route Start Last Admin Trade Name Yas PRN Reason Stop Dose Admin Acetylcysteine 4 ml 10/30/18 08:30 11/03/18 09:16 Acetylcysteine 20% INH 4 ml RQ4 [facility]OTT Administration Benzonatate 100 mg 10/30/18 10:00 11/03/18 09:55 Tessalon Perles PO 100 mg TID E[facility]IOTT Administration Famotidine 20 mg 10/30/18 18:00 11/03/18 09:57 Pepcid PO 20 mg BID E[facility]IOTT Administration Guaifenesin 600 mg 10/30/18 10:00 11/03/18 09:55 Mucinex La PO 600 mg BID E[facility]IOTT Administration Imipenem/Cilastatin Sodium 500 100 mls @ 100 mls/hr 10/27/18 17:00 11/03/18 04:00 mg/ Sodium Chloride IVPB 100 mls/hr Q6H [facility] Administration Protocol Metronidazole 500 mg in 100 mls @ 100 mls/hr 11/01/18 21:00 11/03/18 04:55 Flagyl IVPB 100 mls/hr Q8H E[facility]OTT Administration Protocol Vancomycin HCl 1 gm/ Sodium 250 mls @ 166.7 mls/hr 11/02/18 05:00 11/03/18 06:00 Chloride IVPB 166.7 mls/hr Q8H E[facility]OTT Administration Protocol Ipratropium [place] 0.5 mg 10/31/18 12:42 11/03/18 09:16 Atrovent IH 0.5 mg RQ6 PRN Administration Shortness of Breath Lactobacillus Acidophilus 1 cap 10/27/18 18:00 11/03/18 09:55 Bacid Acidophilus PO 1 cap BID [facility] Administration Methylprednisolone 40 mg 11/02/18 21:00 11/03/18 09:55 Solu-Medrol IVP 40 mg Q12H [facility] Administration Metoprolol Tartrate 50 mg 11/01/18 10:00 11/03/18 09:55 Lopressor PO 50 mg BID E[facility] Administration Mirtazapine 15 mg 10/29/18 22:00 11/02/18 21:28 Remeron PO 15 mg HS E[facility]OTT Administration Nortriptyline HCl 50 mg 10/29/18 22:00 11/02/18 21:28 Pamelor PO 50 mg HS E[facility]OTT Administration Pramipexole Dihydrochloride 0.5 mg 10/28/18 10:00 11/03/18 09:55 Mirapex PO 0.5 mg DAILY E[facility]OTT Administration Tiotropium [place] 18 mcg 10/31/18 14:00 11/03/18 09:16 Spiriva INH 18 mcg RQ24 [facility] Administration Past Psychiatric History - Past Psychiatric History Previous Treatment History: Intensive Outpatient Pertinent Medical Hx (Current Medical&Sleep Prob, Allergies): Allergies Allergy/AdvReac Type Severity Reaction Status Date / Time No Known Allergies Allergy Verified 10/27/18 10:44 Nortriptyline HCl [Pamelor] 50 mg PO HS 02/22/17 Alendronate [Fosamax] 70 mg PO QWK 09/25/18 Ergocalciferol (Vitamin D2) [Vitamin D2] 50,000 unit PO Q30D 09/25/18 Levocetirizine Dihydrochloride [24Hr Allergy Relief] 5 mg PO DAILY 09/25/18 Ondansetron [Zofran Tab] 4 mg PO Q8H PRN 09/25/18 Pramipexole Di-HCl [Mirapex] 0.5 mg PO DAILY 09/25/18 Primidone [Mysoline] 50 mg PO BID 09/25/18 Acyclovir 5% [Zovirax Oint 5%] 15 gm EXT QID #2 tube 09/27/18 Pregabalin [Lyrica] 25 mg PO BID #30 cap 09/27/18 Acyclovir [Zovirax] 400 mg PO TID #21 tab 09/28/18 Acetaminophen [Tylenol Extra Strength] 500 mg PO PRN PRN 10/27/18 Benzonatate 100 mg PO TID 10/27/18 Nitrofurantoin Monohyd/M-Cryst [Nitrofurantoin Monohydrate/Macrocrystals] 100 mg PO BID 10/27/18 Omeprazole 40 mg PO DAILY 10/27/18 Review of Systems - Psychiatric Psychiatric: Abnormal Sleep Pattern, Anxiety, Depression, Difficulty Concentrating (The), Irritability, Memory Loss. absent: Hallucinations, Homicidal Ideation, Paranoia, Suicidal Ideation Mental Status Examination - Personal Presentation Personal Presentation: Looks stated age - Affect Affect: Constricted - Motor Activity Motor Activity: Calm - Reliability in Providing Information Reliability in Providing Information: Fair - Speech Speech: Organized - Mood Mood: Depressed, Anxious - Formal Thought Process Formal Thought Process: No Impairment - Cognitive Functions Orientation: Person, Place Sensorium: Drowsy Attention/Concentration: Easily distracted Abstract Thinking: [place] Estimate of Intelligence: Average Judgement: Intact, as evidence by: Insight regarding need for hospitalization Memory: Recent imparied as evidence by:Inability to complete 3/3 object recall, Remote impaired as evidenced by: Inability to recall historical events - Risk Risk: Diminished functioning - Strength & Assets Inventory Strength & Assets Inventory: Cooperative - Limitations Limitations: Other DSM 5 DX - DSM 5 DSM 5 Diagnosis: Depressive disorder, unspecified Delirium - Recommended/Plan of Treatment Treatment Recommendations and Plan of Treatment: Continue Remeron Support and psychoeducation Monitor for risk of fall Daily orientation and support Family contact Treat underlying conditions, i.e. infection, for delirium 32 minutes Psych will sign off
[2018-11-03 10:37] LABS: LYMPHOCYTE 8 % (20-40); MONOCYTE 10 % (0-10); NEUTROPHIL 82 % (50-75); TOTAL CELLS COUNTED 100
[2018-11-03 10:38] LABS: ANISOCYTOSIS SLIGHT; PLATELET ESTIMATE NORMAL (NORMAL)
--- NOTE | 2018-11-03 14:41 | CP.PCM.PN ---
Subjective - Date & Time of Evaluation Date of Evaluation: 11/03/18 Time of Evaluation: 08:00 - Subjective Subjective: afeb on IV Primaxin weak but NAD Objective - Vital Signs/Intake and Output Vital Signs (last 24 hours): Temp Pulse Resp BP Pulse Ox 98.0 F 76 20 120/62 95 11/03/18 07:00 11/03/18 07:43 11/03/18 07:00 11/03/18 07:00 11/03/18 07:00 Intake and Output: 11/03/18 11/03/18 06:59 18:59 Intake Total 700 Balance 700 - Medications Medications: Current Medications Acetylcysteine (Acetylcysteine 20%) 4 ml INH RQ4 [facility] Last Admin: 11/03/18 09:16 Dose: 4 ml Benzonatate (Tessalon Perles) 100 mg PO TID [facility] Last Admin: 11/03/18 13:28 Dose: 100 mg Famotidine (Pepcid) 20 mg PO BID [facility] Last Admin: 11/03/18 09:57 Dose: 20 mg Guaifenesin (Mucinex La) 600 mg PO BID [facility] Last Admin: 11/03/18 09:55 Dose: 600 mg Imipenem/Cilastatin Sodium 500 (mg/ Sodium Chloride) 100 mls @ 100 mls/hr IVPB Q6H [facility]; Protocol Last Admin: 11/03/18 11:42 Dose: 100 mls/hr Metronidazole (Flagyl) 500 mg in 100 mls @ 100 mls/hr IVPB Q8H [facility]; Protocol Last Admin: 11/03/18 13:28 Dose: 100 mls/hr Ipratropium [place] (Atrovent) 0.5 mg IH RQ6 PRN PRN Reason: Shortness of Breath Last Admin: 11/03/18 09:16 Dose: 0.5 mg Lactobacillus Acidophilus (Bacid Acidophilus) 1 cap PO BID [facility] Last Admin: 11/03/18 09:55 Dose: 1 cap Methylprednisolone (Solu-Medrol) 40 mg IVP Q12H [facility] Last Admin: 11/03/18 09:55 Dose: 40 mg Metoprolol Tartrate (Lopressor) 50 mg PO BID [facility] Last Admin: 11/03/18 09:55 Dose: 50 mg Mirtazapine (Remeron) 15 mg PO HS [facility] Last Admin: 11/02/18 21:28 Dose: 15 mg Nortriptyline HCl (Pamelor) 50 mg PO HS [facility] Last Admin: 11/02/18 21:28 Dose: 50 mg Pramipexole Dihydrochloride (Mirapex) 0.5 mg PO DAILY [facility] Last Admin: 11/03/18 09:55 Dose: 0.5 mg Tiotropium [place] (Spiriva) 18 mcg INH RQ24 [facility] Last Admin: 11/03/18 09:16 Dose: 18 mcg - Labs Labs: 11/03/18 08:14 11/03/18 08:14 PT 17.8 SECONDS (9.7-12.2) H 10/27/18 12:15 INR 1.6 10/27/18 12:15 APTT 33 SECONDS (21-34) 10/27/18 12:15 - Constitutional Appears: Non-toxic, Cachectic, Chronically Ill - Head Exam Head Exam: NORMOCEPHALIC - Eye Exam Eye Exam: absent: Scleral icterus - ENT Exam ENT Exam: Mucous Membranes Dry - Neck Exam Neck Exam: absent: Lymphadenopathy - Respiratory Exam Respiratory Exam: Decreased Breath Sounds - Cardiovascular Exam Cardiovascular Exam: REGULAR RHYTHM - GI/Abdominal Exam GI & Abdominal Exam: Distended, Soft - Rectal Exam Rectal Exam: Deferred - Exam Exam: NORMAL INSPECTION - Extremities Exam Extremities Exam: absent: Pedal Edema - Back Exam Back Exam: absent: CVA tenderness (L), CVA tenderness (R) - Neurological Exam Neurological Exam: Alert, Awake Assessment and Plan (1) Fever Status: Acute - Assessment and Plan (Free Text) Assessment: ok to d/c antibiotics after 7 days observe and reculture as needed
--- NOTE | 2018-11-03 15:11 | CP.PCM.PN ---
Subjective - Date & Time of Evaluation Date of Evaluation: 11/03/18 Time of Evaluation: 13:40 - Subjective Subjective: patient seen and examined Breathing better Patient is off BiPAP Afebrile Followup ABG on room air continue antibiotics Physical therapy Objective - Vital Signs/Intake and Output Vital Signs (last 24 hours): Temp Pulse Resp BP Pulse Ox 98.0 F 76 20 120/62 95 11/03/18 07:00 11/03/18 07:43 11/03/18 07:00 11/03/18 07:00 11/03/18 07:00 Intake and Output: 11/03/18 11/03/18 06:59 18:59 Intake Total 700 Balance 700 - Medications Medications: Current Medications Acetylcysteine (Acetylcysteine 20%) 4 ml INH RQ4 [facility] Last Admin: 11/03/18 09:16 Dose: 4 ml Benzonatate (Tessalon Perles) 100 mg PO TID [facility] Last Admin: 11/03/18 13:28 Dose: 100 mg Famotidine (Pepcid) 20 mg PO BID [facility] Last Admin: 11/03/18 09:57 Dose: 20 mg Guaifenesin (Mucinex La) 600 mg PO BID [facility] Last Admin: 11/03/18 09:55 Dose: 600 mg Imipenem/Cilastatin Sodium 500 (mg/ Sodium Chloride) 100 mls @ 100 mls/hr IVPB Q6H [facility]; Protocol Last Admin: 11/03/18 11:42 Dose: 100 mls/hr Metronidazole (Flagyl) 500 mg in 100 mls @ 100 mls/hr IVPB Q8H [facility]; Protocol Last Admin: 11/03/18 13:28 Dose: 100 mls/hr Ipratropium [place] (Atrovent) 0.5 mg IH RQ6 PRN PRN Reason: Shortness of Breath Last Admin: 11/03/18 09:16 Dose: 0.5 mg Lactobacillus Acidophilus (Bacid Acidophilus) 1 cap PO BID [facility] Last Admin: 11/03/18 09:55 Dose: 1 cap Methylprednisolone (Solu-Medrol) 40 mg IVP Q12H [facility] Last Admin: 11/03/18 09:55 Dose: 40 mg Metoprolol Tartrate (Lopressor) 50 mg PO BID [facility] Last Admin: 11/03/18 09:55 Dose: 50 mg Mirtazapine (Remeron) 15 mg PO HS [facility] Last Admin: 11/02/18 21:28 Dose: 15 mg Nortriptyline HCl (Pamelor) 50 mg PO HS [facility] Last Admin: 11/02/18 21:28 Dose: 50 mg Pramipexole Dihydrochloride (Mirapex) 0.5 mg PO DAILY [facility] Last Admin: 11/03/18 09:55 Dose: 0.5 mg Tiotropium [place] (Spiriva) 18 mcg INH RQ24 [facility] Last Admin: 11/03/18 09:16 Dose: 18 mcg - Labs Labs: 11/03/18 08:14 11/03/18 08:14 PT 17.8 SECONDS (9.7-12.2) H 10/27/18 12:15 INR 1.6 10/27/18 12:15 APTT 33 SECONDS (21-34) 10/27/18 12:15 Assessment and Plan (1) Pneumonia Status: Acute (2) Ulcerative colitis Status: Acute
[2018-11-04] MEDS: Acetylcysteine 20% Inhal Soln (4ml) INH SCH ×6 (00:40→19:43)
[2018-11-04] MEDS: Ipratropium 0.02% Inhal Soln (0.5 mg/2.5 ml) UD IH PRN ×6 (00:41→19:43)
[2018-11-04] MEDS: metroNIDAZOLE IV 500 mg/100 ml 500 MG/100 ML BAG IVPB SCH ×3 (04:15→22:03)
[2018-11-04 07:15] LABS: BASO % 0.1 % (0.0-2.0); EOS % 0.1 % (0.0-4.0); HEMOGLOBIN 10.3 g/dL (11.0-16.0); LYMPH # 0.5 K/uL (1.0-4.3); LYMPH % 3.6 % (20.0-40.0); MEAN CELL VOLUME 97.7 fL (81.0-99.0); MEAN CORPUSCULAR HEMOGLOBIN 32.7 pg (27.0-31.0); MEAN CORPUSCULAR HGB CONC 33.4 g/dL (33.0-37.0); MEAN PLATELET VOLUME 8.6 fL (7.2-11.7); MONO # 0.9 K/uL (0.0-0.8); MONO % 6.9 % (0.0-10.0); NEUT # 11.9 K/uL (1.8-7.0); NEUT % 89.3 % (50.0-75.0); PLATELET COUNT 328 K/uL (130-400); RBC 3.14 Mil/uL (3.80-5.20); RED CELL DISTRIBUTION WIDTH 14.3 % (11.5-14.5); WHITE BLOOD COUNT 13.3 K/uL (4.8-10.8)
[2018-11-04 07:49] LABS: ALB/GLOB RATIO 0.9 (1.0-2.1); ALBUMIN 2.4 g/dL (3.5-5.0); ALT/SGPT 41 U/L (9-52); AST/SGOT 33 U/L (14-36); BLOOD UREA NITROGEN 34 mg/dL (7-17); CALCIUM 7.6 mg/dl (8.6-10.4); GFR NON-AFRICAN AMERICAN > 60
[2018-11-04] MEDS: Tiotropium 18 mcg Cap For Inhalation INH SCH (08:00)
[2018-11-04 09:34] LABS: ANISOCYTOSIS SLIGHT; BANDS 1 % (0-2); HYPOCHROMIC SLIGHT; LYMPHOCYTE 3 % (20-40); MONOCYTE 5 % (0-10); MYELOCYTE 1 % (0-0); NEUTROPHIL 90 % (50-75); PLATELET ESTIMATE NORMAL (NORMAL); POIKILOCYTOSIS SLIGHT; TOTAL CELLS COUNTED 100
[2018-11-04] MEDS: MethylPREDNISolone 40 mg Vial IVP SCH ×2 (10:00→21:00)
[2018-11-04] MEDS: guaiFENesin 600 mg ER Tab PO SCH ×2 (10:28→17:42)
[2018-11-04] MEDS: Lactobacillus Acidophilus 500 MU Cap PO SCH ×2 (10:29→17:42)
[2018-11-04 11:04] LABS: ABG ALLEN TEST POS; ARTERIAL BLOOD GAS HCO3 30.1 mmol/L (21-28); ARTERIAL BLOOD GAS O2 SAT 82.8 % (95-98); ARTERIAL BLOOD GAS PCO2 36 mm/Hg (35-45); ARTERIAL BLOOD GAS PH 7.53 (7.35-7.45); ARTERIAL BLOOD GAS PO2 41 mm/Hg (80-100); ARTERIAL BLOOD GAS TCO2 31.2 mmol/L (22-28)
[2018-11-04] MEDS ORDERED: Potassium Chloride 20 mEq ER Tab PO ONE (14:05)
--- NOTE | 2018-11-04 14:08 | CP.PCM.PN ---
Subjective - Date & Time of Evaluation Date of Evaluation: 11/04/18 Time of Evaluation: 12:00 - Subjective Subjective: patient seen and examined Breathing better ABG noted Afebrile Will need home oxygen Continue present treatment Objective - Vital Signs/Intake and Output Vital Signs (last 24 hours): Temp Pulse Resp BP Pulse Ox 97.2 F L 75 20 158/83 H 97 11/04/18 07:35 11/04/18 07:35 11/04/18 07:35 11/04/18 07:35 11/04/18 07:35 Intake and Output: 11/04/18 11/04/18 06:59 18:59 Intake Total 780 Balance 780 - Medications Medications: Current Medications Acetylcysteine (Acetylcysteine 20%) 4 ml INH RQ4 [facility] Last Admin: 11/04/18 11:25 Dose: 4 ml Benzonatate (Tessalon Perles) 100 mg PO TID [facility] Last Admin: 11/04/18 13:41 Dose: 100 mg Famotidine (Pepcid) 20 mg PO BID [facility] Last Admin: 11/04/18 10:28 Dose: 20 mg Guaifenesin (Mucinex La) 600 mg PO BID [facility] Last Admin: 11/04/18 10:28 Dose: 600 mg Imipenem/Cilastatin Sodium 500 (mg/ Sodium Chloride) 100 mls @ 100 mls/hr IVPB Q6H [facility]; Protocol Last Admin: 11/04/18 05:05 Dose: 100 mls/hr Metronidazole (Flagyl) 500 mg in 100 mls @ 100 mls/hr IVPB Q8H [facility]; Protocol Last Admin: 11/04/18 13:42 Dose: 100 mls/hr Ipratropium [place] (Atrovent) 0.5 mg IH RQ6 PRN PRN Reason: Shortness of Breath Last Admin: 11/04/18 11:25 Dose: 0.5 mg Lactobacillus Acidophilus (Bacid Acidophilus) 1 cap PO BID [facility] Last Admin: 11/04/18 10:29 Dose: 1 cap Methylprednisolone (Solu-Medrol) 40 mg IVP Q12H [facility] Last Admin: 11/04/18 10:00 Dose: 40 mg Metoprolol Tartrate (Lopressor) 50 mg PO BID [facility] Last Admin: 11/04/18 10:28 Dose: 50 mg Mirtazapine (Remeron) 15 mg PO HS [facility] Last Admin: 11/03/18 22:22 Dose: 15 mg Nortriptyline HCl (Pamelor) 50 mg PO HS [facility] Last Admin: 11/03/18 22:22 Dose: 50 mg Potassium Chloride (K-Dur 20 Meq Er Tab) 40 meq PO ONCE ONE Stop: 11/04/18 14:06 Pramipexole Dihydrochloride (Mirapex) 0.5 mg PO DAILY [facility] Last Admin: 11/04/18 10:29 Dose: 0.5 mg Tiotropium [place] (Spiriva) 18 mcg INH RQ24 [facility] Last Admin: 11/04/18 08:00 Dose: 18 mcg - Labs Labs: 11/04/18 06:58 11/04/18 06:58 PT 17.8 SECONDS (9.7-12.2) H 10/27/18 12:15 INR 1.6 10/27/18 12:15 APTT 33 SECONDS (21-34) 10/27/18 12:15 Assessment and Plan (1) Pneumonia Status: Acute (2) Ulcerative colitis Status: Acute
--- NOTE | 2018-11-04 16:09 | CP.PCM.PN ---
Subjective - Date & Time of Evaluation Date of Evaluation: 11/04/18 Time of Evaluation: 07:15 - Subjective Subjective: PGY-[address] Martin Patient is seen and examined at bedside. Patient reports doing well and has no current complains. as per nurse, no acute events overnight. Patient continues to remove her nasal cannula which causes her O2sat to decrease, and increases right back after patient places cannula back on. Patient denies chest pain, palpitations or shortness of breath. Patient reports having bowel movements, and continues to have poor appetite, but drank 3 ensures yesterday. Patient denies fever, chills, abdominal pain, n/v/d/c or urinary symptoms. Objective - Vital Signs/Intake and Output Vital Signs (last 24 hours): Temp Pulse Resp BP Pulse Ox 97.2 F L 75 20 158/83 H 97 11/04/18 07:35 11/04/18 07:35 11/04/18 07:35 11/04/18 07:35 11/04/18 07:35 Intake and Output: 11/04/18 11/04/18 06:59 18:59 Intake Total 780 Balance 780 - Medications Medications: Current Medications Acetylcysteine (Acetylcysteine 20%) 4 ml INH RQ4 [facility] Last Admin: 11/04/18 15:47 Dose: 4 ml Benzonatate (Tessalon Perles) 100 mg PO TID [facility] Last Admin: 11/04/18 13:41 Dose: 100 mg Famotidine (Pepcid) 20 mg PO BID [facility] Last Admin: 11/04/18 10:28 Dose: 20 mg Guaifenesin (Mucinex La) 600 mg PO BID [facility] Last Admin: 11/04/18 10:28 Dose: 600 mg Imipenem/Cilastatin Sodium 500 (mg/ Sodium Chloride) 100 mls @ 100 mls/hr IVPB Q6H [facility]; Protocol Last Admin: 11/04/18 14:21 Dose: 100 mls/hr Metronidazole (Flagyl) 500 mg in 100 mls @ 100 mls/hr IVPB Q8H [facility]; Protocol Last Admin: 11/04/18 13:42 Dose: 100 mls/hr Ipratropium [place] (Atrovent) 0.5 mg IH RQ6 PRN PRN Reason: Shortness of Breath Last Admin: 12/24/18 15:48 Dose: 0.5 mg Lactobacillus Acidophilus (Bacid Acidophilus) 1 cap PO BID [facility] Last Admin: 11/04/18 10:29 Dose: 1 cap Methylprednisolone (Solu-Medrol) 40 mg IVP Q12H [facility] Last Admin: 11/04/18 10:00 Dose: 40 mg Metoprolol Tartrate (Lopressor) 50 mg PO BID [facility] Last Admin: 11/04/18 10:28 Dose: 50 mg Mirtazapine (Remeron) 15 mg PO HS [facility] Last Admin: 11/03/18 22:22 Dose: 15 mg Nortriptyline HCl (Pamelor) 50 mg PO HS [facility] Last Admin: 11/03/18 22:22 Dose: 50 mg Pramipexole Dihydrochloride (Mirapex) 0.5 mg PO DAILY [facility] Last Admin: 11/04/18 10:29 Dose: 0.5 mg Tiotropium [place] (Spiriva) 18 mcg INH RQ24 [facility] Last Admin: 11/04/18 08:00 Dose: 18 mcg - Labs Labs: 11/04/18 06:58 11/04/18 06:58 PT 17.8 SECONDS (9.7-12.2) H 10/27/18 12:15 INR 1.6 10/27/18 12:15 APTT 33 SECONDS (21-34) 10/27/18 12:15 - Constitutional Appears: Non-toxic, No Acute Distress - Head Exam Head Exam: ATRAUMATIC, NORMAL INSPECTION, NORMOCEPHALIC - Eye Exam Eye Exam: EOMI, Normal appearance, PERRL - ENT Exam ENT Exam: Mucous Membranes Moist, Normal Exam - Neck Exam Neck Exam: Full ROM, Normal Inspection - Respiratory Exam Respiratory Exam: NORMAL BREATHING PATTERN. absent: Accessory Muscle Use, Rales, Rhonchi, Wheezes, Respiratory Distress Additional comments: mild crackles on lower lobes bilaterally - Cardiovascular Exam Cardiovascular Exam: REGULAR RHYTHM, +S1, +S2. absent: Bradycardia, Tachycardia - GI/Abdominal Exam GI & Abdominal Exam: Soft, Normal Bowel Sounds. absent: Distended, Guarding, Tenderness - Extremities Exam Extremities Exam: Full ROM, Normal Inspection. absent: Calf Tenderness, Tenderness - Neurological Exam Neurological Exam: Alert, Awake, Oriented x3 - Psychiatric Exam Psychiatric exam: Normal Affect, Normal Mood - Skin Skin Exam: Dry, Intact, Normal Color, Warm Assessment and Plan - Assessment and Plan (Free Text) Plan: Multifocal Pneumonia vs. Pneumonitis; improving Sepsis -Sepsis criteria met: on admission, febrile, tachycardic, elevated WBC at 16.2, suspected infection Imaging: - CXR: Interval appearance of diffuse reticular opacities and prominent lung markings more prominent in the lower lobes since the previous exam. Possible small left pleural effusion. - Chest CT: Patchy ground-glass opacities and diffuse interstitial septal thic kening may represent pneumonitis or pulmonary edema/congestion. Left lung base atelectasis. Small bilateral pleural effusion. Mildly enlarged mediastinal lymph nodes. - Echo ordered - left ventricle systolic function normal, EF is 65-70%, transmitral doppler flow pattern is grade I abnormal relaxation patterns, there is moderate severe pulmonary hypertension. Meds: -c/w metronidazole and Primaxin - Mucomyst 4ml INH q4 - Atrovent 0.5 Q6hrs PRN - Spiriva 1 puff daily - Solumedrol 40mg IVP q8 - Tessalon Perles 100mg po tid - Mucinex 600mg po bid Consults: - Consult seasoner hand Dr Urbano -Continue Antibiotics, Continue steroids - Consult ID recs Dr. Summers -cultures thus far neg, denies diarrhea, to complete 7 days IV rx then reculture - patient on Bipap, encouraged to keep Bipap on - patient on 1:1 to monitor for mask removal and consequently desaturating. Patient on video monitoring as well. NOTE: patient has a history of smoking of 1/2 pack a day, quitted 15 years ago. had a long standing history of smoking, from lung CA. Tachycardia; resolved stable SVT 10/31 - HR now 70s, asymptomatic - 10/31 EKG- Supraventricular tachycardia, no WPW - 10/31 repeat EKG - sinus tachycardia - will continue to monitor vitals - Patient now on Nasal cannula - Patient placed on video monitoring due to taking her mask off and subsequently desaturating - Cardio consult Dr Warren - help is appreciated - - Patient went for Nuclear stress test on 11/01 - f/u official report - metoprolol tartrate 50mg PO BID Parkinson's - continue Mirapex 0.5mg po daily hypokalemia, currently resolved - 11/04: 3.6 - AB.1 -Kdur 40meq PO x 1 dose -continue to monitor Ulcerative Colitis - no bloody stools reported will continue to monitor for bloody diarrhea Recent Admission for C.Diff - c.diff negative on this admission - no loose stools reported hx of depression - started home med mirtazapine 15mg PO QHS and Nortryptyline HCL 50mg PO HS -f/u psych; thank you Dr. Berger Hx of DVT - unknown when DVT Hx - US Doppler LE: neg bilaterally - continue SCDs Prophylactic Measures - GI PPX: Pepcid - DVT PPX: SCDs, Hep Q8 - Diet: Reg Diet (soft) with 3 Ensure Enlive-strawberry - Palliative Care consult: DNr/DNI, POLST on chart, Continue ordinary , supportive measure, Assist with feeding, Promote oral care. - midline requested for patient for poor vascular abscess - patient is somewhat depressed; not eating well; ordered ensure strawberry (does NOT like chocolate) for 6x per day with calorie counts; states this time last year and is sad about it; would recommend remeron but will defer to psych Dispo: Patient needs home oxygen 2L nasal cannula, PT to evaluate patient on needs for home oxygen. SW to arrange home O2 and home Physical therapy. Patient to be discharge on 11/06/2018. Plan discussed and seen with Dr. Veronica Daly, PGY-1
[2018-11-05] MEDS: Acetylcysteine 20% Inhal Soln (4ml) INH SCH ×6 (00:30→20:33)
--- NOTE | 2018-11-05 00:48 | CP.PCM.PN ---
Subjective - Date & Time of Evaluation Date of Evaluation: 11/05/18 Time of Evaluation: 00:44 - Subjective Subjective: Progress Note Patient seen and examined at bedside. She is currently doing a breathing treatment. She is offering no complaints currently. Patient has had issues with keeping nasal cannula or mask on in the past, after which her oxygen saturation drops, but increases after placed back on nasal cannula or mask. She currently denies chest pain, palpitations, shortness of breath. She drinks Ensures without any issues. She denies fever, chill,s abdominal pain, nausea, vomiting, diarrhea, constipation, dysuria. Objective - Vital Signs/Intake and Output Vital Signs (last 24 hours): Temp Pulse Resp BP Pulse Ox 97.8 F 63 20 114/70 100 11/04/18 15:04 11/05/18 00:16 11/04/18 15:04 11/04/18 15:04 11/04/18 15:04 - Medications Medications: Current Medications Acetylcysteine (Acetylcysteine 20%) 4 ml INH RQ4 [facility] Last Admin: 11/04/18 19:43 Dose: 4 ml Benzonatate (Tessalon Perles) 100 mg PO TID [facility] Last Admin: 11/04/18 17:42 Dose: 100 mg Famotidine (Pepcid) 20 mg PO BID [facility] Last Admin: 11/04/18 17:42 Dose: 20 mg Guaifenesin (Mucinex La) 600 mg PO BID [facility] Last Admin: 11/04/18 17:42 Dose: 600 mg Imipenem/Cilastatin Sodium 500 (mg/ Sodium Chloride) 100 mls @ 100 mls/hr IVPB Q6H [facility]; Protocol Last Admin: 11/04/18 22:52 Dose: 100 mls/hr Metronidazole (Flagyl) 500 mg in 100 mls @ 100 mls/hr IVPB Q8H [facility]; Protocol Last Admin: 11/04/18 22:03 Dose: 100 mls/hr Ipratropium [place] (Atrovent) 0.5 mg IH RQ6 PRN PRN Reason: Shortness of Breath Last Admin: 11/04/18 19:43 Dose: 0.5 mg Lactobacillus Acidophilus (Bacid Acidophilus) 1 cap PO BID [facility] Last Admin: 11/04/18 17:42 Dose: 1 cap Methylprednisolone (Solu-Medrol) 40 mg IVP Q12H [facility] Last Admin: 12/24/18 10:00 Dose: 40 mg Metoprolol Tartrate (Lopressor) 50 mg PO BID [facility] Last Admin: 11/04/18 17:42 Dose: 50 mg Mirtazapine (Remeron) 15 mg PO HS [facility] Last Admin: 11/04/18 22:03 Dose: 15 mg Nortriptyline HCl (Pamelor) 50 mg PO HS [facility] Last Admin: 11/04/18 22:03 Dose: 50 mg Pramipexole Dihydrochloride (Mirapex) 0.5 mg PO DAILY [facility] Last Admin: 11/04/18 10:29 Dose: 0.5 mg Tiotropium [place] (Spiriva) 18 mcg INH RQ24 [facility] Last Admin: 11/04/18 08:00 Dose: 18 mcg - Labs Labs: 11/04/18 06:58 11/04/18 06:58 PT 17.8 SECONDS (9.7-12.2) H 10/27/18 12:15 INR 1.6 10/27/18 12:15 APTT 33 SECONDS (21-34) 10/27/18 12:15 - Constitutional Appears: Non-toxic, No Acute Distress - Head Exam Head Exam: ATRAUMATIC, NORMOCEPHALIC - Eye Exam Eye Exam: EOMI, PERRL - ENT Exam ENT Exam: Mucous Membranes Moist - Neck Exam Neck Exam: Full ROM - Respiratory Exam Respiratory Exam: absent: Rhonchi, Wheezes, Respiratory Distress, Stridor Additional comments: faint rales at lung bases bilaterally - Cardiovascular Exam Cardiovascular Exam: REGULAR RHYTHM, +S1, +S2. absent: Gallop, Rubs, Murmur - GI/Abdominal Exam GI & Abdominal Exam: Soft, Normal Bowel Sounds. absent: Distended, Guarding, Tenderness - Extremities Exam Extremities Exam: Normal Capillary Refill. absent: Calf Tenderness, Pedal Edema - Neurological Exam Neurological Exam: Alert, Awake, Oriented x3 - Psychiatric Exam Psychiatric exam: Normal Affect, Normal Mood - Skin Skin Exam: Dry, Intact, Warm Assessment and Plan - Assessment and Plan (Free Text) Plan: Multifocal Pneumonia vs. Pneumonitis; improving Sepsis -Sepsis criteria met: on admission, febrile, tachycardic, elevated WBC at 16.2, suspected infection Imaging: - CXR: Interval appearance of diffuse reticular opacities and prominent lung m arkings more prominent in the lower lobes since the previous exam. Possible small left pleural effusion. - Chest CT: Patchy ground-glass opacities and diffuse interstitial septal thickening may represent pneumonitis or pulmonary edema/congestion. Left lung base atelectasis. Small bilateral pleural effusion. Mildly enlarged mediastinal lymph nodes. - Echo ordered - left ventricle systolic function normal, EF is 65-70%, transmitral doppler flow pattern is grade I abnormal relaxation patterns, there is moderate severe pulmonary hypertension. Meds: - Continue with metronidazole 500mg Q8 (started 11/01) and Primaxin 500mg IV (started 10/27) - Mucomyst 4ml INH q4 - Atrovent 0.5 Q6 hrs PRN - Spiriva 1 puff daily - Solumedrol 40mg IVP q12 - Tessalon Perles 100mg po tid - Mucinex 600mg po bid Consults: - Consult nurse ob Dr Urbano -Continue Antibiotics, Continue steroids - Consult ID recs Dr. Summers -cultures thus far neg, denies diarrhea, to complete 7 days IV rx then reculture - patient is currently off BIPAP - patient on 1:1 to monitor for nasal cannula/mask removal and consequently desaturating. Patient on video monitoring as well. NOTE: patient has a history of smoking of 1/2 pack a day, quitted 15 years ago. had a long standing history of smoking, from lung CA. Tachycardia; resolved stable SVT 10/31 - HR now 70s, asymptomatic - 10/31 EKG- Supraventricular tachycardia, no WPW - 10/31 repeat EKG - sinus tachycardia - will continue to monitor vitals - Patient now on Nasal cannula - Patient placed on video monitoring due to taking her mask off and subsequently desaturating - Cardio consult Dr Warren - help is appreciated - - Patient went for Nuclear stress test on 11/01 - f/u official report - metoprolol tartrate 50mg PO BID Parkinson's - continue Mirapex 0.5mg po daily Hypokalemia, currently resolved - 11/04: 3.6 - AB.1, received Kdur 40mEq x1 yesterday - continue to monitor Ulcerative Colitis - no bloody stools reported - will continue to monitor for bloody diarrhea Recent Admission for C.Diff - c.diff negative on this admission - no loose stools reported Hx of depression - started home med mirtazapine 15mg PO QHS and Nortryptyline HCL 50mg PO HS - Psych Dr. Berger consulted, help appreciated Hx of DVT - unknown when DVT Hx - US Doppler LE: neg bilaterally - continue SCDs Prophylactic Measures - GI PPX: Pepcid, Bacid 1 cap PO BID - DVT PPX: SCDs, Hep Q8 - Diet: Reg Diet (soft) with 3 Ensure Enlive-strawberry - Palliative Care consult: DNR/DNI, POLST on chart, Continue ordinary , supportive measure, Assist with feeding, Promote oral care. - midline requested for patient for poor vascular abscess - patient is somewhat depressed; not eating well; ordered ensure strawberry (does NOT like chocolate) for 6x per day with calorie counts; states this time last year and is sad about it; would recommend remeron but will defer to psych Dispo: Patient needs home oxygen 2L nasal cannula, PT to evaluate patient on needs for home oxygen. SW to arrange home O2 and home Physical therapy. Patient to be discharge on 11/06/2018. Case discussed with Dr. Veronica Guerrero, PGY1
[2018-11-05] MEDS: metroNIDAZOLE IV 500 mg/100 ml 500 MG/100 ML BAG IVPB SCH ×3 (06:17→21:18)
[2018-11-05] MEDS: Tiotropium 18 mcg Cap For Inhalation INH SCH (07:50)
[2018-11-05] MEDS: Lactobacillus Acidophilus 500 MU Cap PO SCH ×2 (10:31→17:58)
[2018-11-05] MEDS: guaiFENesin 600 mg ER Tab PO SCH ×2 (10:32→17:58)
[2018-11-05] MEDS: MethylPREDNISolone 40 mg Vial IVP SCH ×2 (10:50→21:18)
[2018-11-05] MEDS: Ipratropium 0.02% Inhal Soln (0.5 mg/2.5 ml) UD IH PRN ×2 (12:00→15:41)
--- NOTE | 2018-11-05 16:29 | CP.PCM.PN ---
Subjective - Date & Time of Evaluation Date of Evaluation: 11/05/18 Time of Evaluation: 12:30 - Subjective Subjective: Patient seen and examined Clinically improving Patient is afebrile Awake and responsive No respiratory distress Objective - Vital Signs/Intake and Output Vital Signs (last 24 hours): Temp Pulse Resp BP Pulse Ox 98.7 F 72 20 123/72 99 11/05/18 07:00 11/05/18 08:00 11/05/18 07:00 11/05/18 07:00 11/05/18 07:00 Intake and Output: 11/05/18 11/05/18 06:59 18:59 Intake Total 200 Balance 200 - Medications Medications: Current Medications Acetylcysteine (Acetylcysteine 20%) 4 ml INH RQ4 [facility] Last Admin: 11/05/18 15:41 Dose: 4 ml Benzonatate (Tessalon Perles) 100 mg PO TID [facility] Last Admin: 11/05/18 13:57 Dose: 100 mg Famotidine (Pepcid) 20 mg PO BID [facility] Last Admin: 11/05/18 10:32 Dose: 20 mg Guaifenesin (Mucinex [place]) 600 mg PO BID [facility] Last Admin: 11/05/18 10:32 Dose: 600 mg Imipenem/Cilastatin Sodium 500 (mg/ Sodium Chloride) 100 mls @ 100 mls/hr IVPB Q6H [facility]; Protocol Last Admin: 11/05/18 11:40 Dose: 100 mls/hr Metronidazole (Flagyl) 500 mg in 100 mls @ 100 mls/hr IVPB Q8H [facility]; Protocol Last Admin: 11/05/18 13:57 Dose: 100 mls/hr Ipratropium [place] (Atrovent) 0.5 mg IH RQ6 PRN PRN Reason: Shortness of Breath Last Admin: 11/05/18 15:41 Dose: 0.5 mg Lactobacillus Acidophilus (Bacid Acidophilus) 1 cap PO BID [facility] Last Admin: 11/05/18 10:31 Dose: 1 cap Methylprednisolone (Solu-Medrol) 40 mg IVP Q12H [facility] Last Admin: 11/05/18 10:50 Dose: 40 mg Metoprolol Tartrate (Lopressor) 50 mg PO BID [facility] Last Admin: 11/05/18 10:32 Dose: 50 mg Mirtazapine (Remeron) 15 mg PO HS [facility] Last Admin: 11/04/18 22:03 Dose: 15 mg Nortriptyline HCl (Pamelor) 50 mg PO HS [facility] Last Admin: 11/04/18 22:03 Dose: 50 mg Pramipexole Dihydrochloride (Mirapex) 0.5 mg PO DAILY [facility] Last Admin: 11/05/18 10:29 Dose: 0.5 mg Tiotropium [place] (Spiriva) 18 mcg INH RQ24 [facility] Last Admin: 11/05/18 07:50 Dose: 18 mcg - Labs Labs: 11/04/18 06:58 11/04/18 06:58 PT 17.8 SECONDS (9.7-12.2) H 10/27/18 12:15 INR 1.6 10/27/18 12:15 APTT 33 SECONDS (21-34) 10/27/18 12:15 - Head Exam Head Exam: ATRAUMATIC, NORMOCEPHALIC - ENT Exam ENT Exam: Mucous Membranes Moist - Neck Exam Neck Exam: Normal Inspection - Respiratory Exam Respiratory Exam: Decreased Breath Sounds - Cardiovascular Exam Cardiovascular Exam: REGULAR RHYTHM - GI/Abdominal Exam GI & Abdominal Exam: Soft, Normal Bowel Sounds Assessment and Plan (1) Pneumonia Assessment & Plan: continue antibiotics Nebulizer treatment Taper steroids Home oxygen Physical therapy Status: Acute (2) Ulcerative colitis Status: Acute
[2018-11-06] MEDS: Acetylcysteine 20% Inhal Soln (4ml) INH SCH ×4 (00:05→12:05)
[2018-11-06] MEDS: metroNIDAZOLE IV 500 mg/100 ml 500 MG/100 ML BAG IVPB SCH ×2 (05:50→13:13)
[2018-11-06] MEDS: Ipratropium 0.02% Inhal Soln (0.5 mg/2.5 ml) UD IH PRN (07:35)
[2018-11-06] MEDS: Tiotropium 18 mcg Cap For Inhalation INH SCH (07:35)
[2018-11-06] MEDS: MethylPREDNISolone 40 mg Vial IVP SCH (10:05)
[2018-11-06] MEDS: Lactobacillus Acidophilus 500 MU Cap PO SCH (10:05)
[2018-11-06] MEDS: guaiFENesin 600 mg ER Tab PO SCH (10:05)
--- NOTE | 2018-11-06 15:02 | CP.PCM.DIS ---
Provider - Provider Date of Admission: 10/27/18 13:09 Attending physician: Geetha Martin DO Consults: 10/27/18 18:02 Infectious Disease Consult Routine Comment: Consulting Provider: Mandeep Summers Consulting Physician: Mandeep Summers Reason for Consult: multifocal pneumonia 10/29/18 11:43 Pulmonology Consult Routine Comment: Consulting Provider: Brock Urbano Consulting Physician: Brock Urbano Reason for Consult: multifocal pna, possible emphysema 10/30/18 10:32 Palliative Care Consult Routine Comment: Consulting Provider: Kenisha Marx Physician Instructions: Reason For Exam: creation of a polst 10/30/18 10:35 Case Management Referral Routine Comment: Physician Instructions: Reason For Exam: eval for NAHID Reason for Referral: Discharge Planning 10/30/18 20:57 Cardiology Consult Routine Comment: patient being treated for pneumonia, hypoxia Consulting Provider: Jone Warren Consulting Physician: Jone Warren Reason for Consult: tachycardia, possible MAT? 11/02/18 11:46 Pastoral Care Referral Routine Comment: Physician Instructions: Reason For Exam: depression; recent loss of Psychiatry Consult Routine Comment: Consulting Provider: Felecia Berger Consulting Physician: Felecia Berger Reason for Consult: depression 11/04/18 13:11 Case Management Referral Routine Comment: Physician Instructions: Reason For Exam: home oxygen Reason for Referral: Discharge Planning Time Spent in preparation of Discharge (in minutes): 45 Diagnosis - Discharge Diagnosis (1) COPD (chronic obstructive pulmonary disease) Status: Acute (2) Pneumonia Status: Acute Hospital Course - Lab Results Lab Results: Micro Results 10/27/18 12:34 Blood Blood Culture - Final NO GROWTH AFTER 5 DAYS 10/27/18 12:34 Blood Gram Stain - Final TEST NOT PERFORMED 10/27/18 12:15 Blood Blood Culture - Final NO GROWTH AFTER 5 DAYS 10/27/18 12:15 Blood Gram Stain - Final TEST NOT PERFORMED 10/27/18 16:10 Sputum Gram Stain - Final 10/27/18 16:10 Sputum Sputum Culture - Final NORMAL ORAL MI 10/27/18 14:10 Urine,Catheterized Urine Culture - Final No Growth (<1,000 CFU/ML) Most Recent Lab Values WBC 13.3 K/uL (4.8-10.8) H 11/04/18 06:58 RBC 3.14 Mil/uL (3.80-5.20) L 11/04/18 06:58 Hgb 10.3 g/dL (11.0-16.0) L 11/04/18 06:58 Hct 30.7 % (34.0-47.0) L 11/04/18 06:58 MCV 97.7 fL (81.0-99.0) 11/04/18 06:58 MCH 32.7 pg (27.0-31.0) H 11/04/18 06:58 MCHC 33.4 g/dL (33.0-37.0) 11/04/18 06:58 RDW 14.3 % (11.5-14.5) 11/04/18 06:58 Plt Count 328 K/uL (130-400) 11/04/18 06:58 MPV 8.6 fL (7.2-11.7) 11/04/18 06:58 Neut % (Auto) 89.3 % (50.0-75.0) H 11/04/18 06:58 Lymph % (Auto) 3.6 % (20.0-40.0) L 11/04/18 06:58 [place] % (Auto) 6.9 % (0.0-10.0) 11/04/18 06:58 Eos % (Auto) 0.1 % (0.0-4.0) 11/04/18 06:58 Baso % (Auto) 0.1 % (0.0-2.0) 11/04/18 06:58 Neut # (Auto) 11.9 K/uL (1.8-7.0) H 11/04/18 06:58 Lymph # (Auto) 0.5 K/uL (1.0-4.3) L 11/04/18 06:58 [place] # (Auto) 0.9 K/uL (0.0-0.8) H 11/04/18 06:58 Eos # (Auto) 0.0 K/uL (0.0-0.7) 11/04/18 06:58 Baso # (Auto) 0.0 K/uL (0.0-0.2) 11/04/18 06:58 Neutrophils % (Manual) 90 % (50-75) H 11/04/18 06:58 Band Neutrophils % 1 % (0-2) 11/04/18 06:58 Lymphocytes % (Manual) 3 % (20-40) L 11/04/18 06:58 Monocytes % (Manual) 5 % (0-10) 11/04/18 06:58 Eosinophils % (Manual) 1 % (0-4) 11/01/18 06:52 Myelocytes % 1 % (0-0) H 11/04/18 06:58 Toxic Granulation Present 11/02/18 07:04 Platelet Estimate Normal (NORMAL) 11/04/18 06:58 Plt Clumps, EDTA Present 11/02/18 07:04 Large Platelets Present 11/02/18 07:04 Giant Platelets Present 11/02/18 07:04 RBC Morphology Normal 10/27/18 12:15 Polychromasia Slight 11/02/18 07:04 Hypochromasia (manual) Slight 11/04/18 06:58 Poikilocytosis (manual Slight 11/04/18 06:58 Anisocytosis (manual) Slight 11/04/18 06:58 Macrocytosis (manual) Slight 11/02/18 07:04 PT 17.8 SECONDS (9.7-12.2) H 10/27/18 12:15 INR 1.6 10/27/18 12:15 APTT 33 SECONDS (21-34) 10/27/18 12:15 Puncture Site Rr 11/04/18 10:55 pCO2 36 mm/Hg (35-45) 11/04/18 10:55 pO2 41 mm/Hg (80-100) L* 11/04/18 10:55 HCO3 30.1 mmol/L (21-28) H 11/04/18 10:55 ABG pH 7.53 (7.35-7.45) H 11/04/18 10:55 ABG Total CO2 31.2 mmol/L (22-28) H 11/04/18 10:55 ABG O2 Saturation 82.8 % (95-98) L 11/04/18 10:55 ABG Base Excess 7.1 mmol/L (-2.0-3.0) H 11/04/18 10:55 Yoan Test Pos 11/04/18 10:55 ABG Potassium 3.1 mmol/L (3.6-5.2) L 11/04/18 10:55 VBG pH 7.43 (7.32-7.43) 10/29/18 05:15 VBG pCO2 32 mmHg (40-60) L 10/29/18 05:15 VBG HCO3 22.8 mmol/L 10/29/18 05:15 VBG Total CO2 22.2 mmol/L (22-28) 10/29/18 05:15 VBG O2 Sat (Calc) 89.8 % (40-65) H 10/29/18 05:15 VBG Base Excess -2.3 mmol/L (0.0-2.0) L 10/29/18 05:15 VBG Potassium 3.2 mmol/L (3.6-5.2) L 10/29/18 05:15 Sodium 140.0 mmol/l (132-148) 11/04/18 10:55 Chloride 108.0 mmol/L (98-107) H 11/04/18 10:55 Glucose 102 mg/dl (65-105) 11/04/18 10:55 Lactate 1.9 mmol/L (0.7-2.1) 11/04/18 10:55 Crit Value Called To Alisha carmona 11/04/18 10:55 Crit Value Called By Meliza nunn 11/04/18 10:55 Crit Value Read Back Y 11/04/18 10:55 Blood Gas Notified Time 1104 11/04/18 10:55 Sodium 139 mmol/L (132-148) 11/04/18 06:58 Potassium 3.6 mmol/L (3.6-5.2) 11/04/18 06:58 Chloride 105 mmol/L (98-107) 11/04/18 06:58 Carbon Dioxide 28 mmol/L (22-30) 11/04/18 06:58 Anion Gap 9 (10-20) L 11/04/18 06:58 BUN 34 mg/dL (7-17) H 11/04/18 06:58 Creatinine 0.5 mg/dL (0.7-1.2) L 11/04/18 06:58 Est GFR ( Amer) > 60 11/04/18 06:58 Est GFR (Non-Af Amer) > 60 11/04/18 06:58 POC Glucose (mg/dL) 187 mg/dL (65-110) H 11/03/18 03:16 Random Glucose 174 mg/dL (65-105) H D 11/04/18 06:58 Hemoglobin A1c 5.3 % (4.2-6.5) 10/31/18 07:01 Lactic Acid 1.5 mmol/L (0.7-2.1) 10/27/18 14:10 Calcium 7.6 mg/dl (8.6-10.4) L 11/04/18 06:58 Phosphorus 3.2 mg/dL (2.5-4.5) 11/04/18 06:58 Magnesium 1.8 mg/dL (1.6-2.3) 11/04/18 06:58 Total Bilirubin 0.3 mg/dL (0.2-1.3) 11/04/18 06:58 AST 33 U/L (14-36) 11/04/18 06:58 ALT 41 U/L (9-52) 11/04/18 06:58 Alkaline Phosphatase 159 U/L (38-126) H 11/04/18 06:58 Total Protein 5.0 g/dL (6.3-8.3) L 11/04/18 06:58 Albumin 2.4 g/dL (3.5-5.0) L 11/04/18 06:58 Globulin 2.7 gm/dL (2.2-3.9) 11/04/18 06:58 Albumin/Globulin Ratio 0.9 (1.0-2.1) L 11/04/18 06:58 Triglycerides 74 mg/dL (0-149) D 10/31/18 07:01 Cholesterol 100 mg/dL (0-199) 10/31/18 07:01 LDL Cholesterol Direct 47 mg/dL (0-129) 10/31/18 07:01 HDL Cholesterol 39 mg/dL (30-70) 10/31/18 07:01 Amylase 45 U/L (30-110) 10/27/18 12:15 Lipase < 10 U/L (23-300) L 10/27/18 12:15 Procalcitonin 0.27 NG/ML (0.19-0.49) 11/01/18 14:12 Free T4 1.28 ng/dL (0.78-2.19) 10/31/18 07:01 Free T3 pg/mL 1.67 pg/mL (2.77-5.27) L 10/31/18 07:01 TSH 3rd Generation 0.70 mIU/L (0.46-4.68) 10/31/18 07:01 Arterial Blood Potassium 3.1 mmol/L (3.6-5.2) L 11/04/18 10:55 Venous Blood Potassium 3.2 mmol/L (3.6-5.2) L 10/29/18 05:15 Urine Color Yellow (YELLOW) 10/27/18 22:56 Urine Clarity Hazy (Clear) 10/27/18 22:56 Urine pH 5.0 (5.0-8.0) 10/27/18 22:56 Ur Specific [place] 1.018 (1.003-1.030) 10/27/18 22:56 Urine Protein 1+ mg/dL (NEGATIVE) H 10/27/18 22:56 Urine Glucose (UA) 2+ mg/dL (Normal) H 10/27/18 22:56 Urine Ketones Negative mg/dL (NEGATIVE) 10/27/18 22:56 Urine Blood 1+ (NEGATIVE) H 10/27/18 22:56 Urine Nitrate Negative (NEGATIVE) 10/27/18 22:56 Urine Bilirubin Negative (NEGATIVE) 10/27/18 22:56 Urine Urobilinogen Normal mg/dL (0.2-1.0) 10/27/18 22:56 Ur Leukocyte Esterase Trace Hazel/uL (Negative) 10/27/18 22:56 Urine WBC (Auto) 14 /hpf (0-5) H 10/27/18 22:56 Urine RBC (Auto) 5 /hpf (0-3) H 10/27/18 22:56 Ur Squamous Epith Cells 1 /hpf (0-5) 10/27/18 22:56 Amorphous Sediment Few /ul (<OCC) H 10/27/18 22:56 Vancomycin Trough 19.4 ug/mL (5.0-10.0) H 11/02/18 04:30 Random Vancomycin 34.6 ug/mL 11/03/18 11:12 C. difficile Ag & Toxin Negative (NEGATIVE) 10/28/18 Unknown Influenza Typ A,B (EIA) Negative for flu a/b (NEGATIVE) 10/27/18 12:02 Ur L.pneumophila Ag Negative (NEGATIVE) 10/28/18 19:25 Mycoplasma pneumon IgG 3.03 (<=0.90) H 10/28/18 15:20 Mycoplasma pneumon IgM Negative (NEGATIVE) 10/30/18 08:52 RSV Antigen Negative (NEGATIVE) 10/27/18 12:02 Ur Strep pneumoniae Ag Not detected (Not Detected) 10/27/18 14:10 - Hospital Course Hospital Course: This is a 77 year old female with PMHx of Ulcerative Colitis, Nephrolithiasis, Herpes Zoster, Parkinson's and history of DVT with recent admission for CDiff, presents to the ED with 2 days of fever, chills, and productive cough. Patient went to go see her PMD on Sunday and was sent home with antibiotics and cough syrup. That night she spiked a fever of 104F. Over the weekend, patient reported she felt weaker and weaker over the weekend, unable to ambulate around her house. Admitted to generalized weakness, fatigue, productive cough with green/ white phlegm. Patient denied any recent sick contacts; patient have never received the flu shot. Denied any current chills, headache, chest pain, shortness of breath, abdominal pain, n/v/d/c, or urinary symptoms. CXR and CT Chest showed patchy ground glass opacities and diffuse interstitial septal thickening representing pneumonitis vs. pulm edema/congestion, small bilateral pleural effusion. Patient was started on empiric antibiotics and breathing treatment ATC. ECHO showed LVEF 65-70% with moderate to severe pulmonary hypertension. 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 Patient was trialed on NRB, BiPAP, and patient tolerating Venturi mask appropriately. Dopplers of LE showed no evidence for DVT. Steroids were added to help her breath. She was evaluated by ID, Pulm, and Psych during this stay. ID agreed with the course of antibiotics, which were edited after blood, urine, and sputum cultures all came back negative. Pulm has been following her case the entire stay and recommends home oxygen for her. Psych evaluated her for depression/delirium due to polysubstance as well as mental state during stay. The patient improved as evidenced by WBC count and clinical impression, but slowly. Primary Diagnosis: Multifocal Pneumonia, COPD Patient is clear for discharge per Dr. Hernandez. She is being restarted on her home medications except those for her Shingles outbreak. She is also being started on some new medications and should therefore take this list, and this list alone as written: Benzonatate 100mg po tid: take 1 tab bby mouth three times a day (8am, 2pm, 8pm) Pepcid 20mg po bid: take 1 tab by mouth twice a day (8am, 8pm) Metoprolol Tartrate 50mg po bid: take 1 tab by mouth twice a day (8am, 8pm) Mirtazapine 15mg po hs: take 1 tab by mouth at bedtime Nortriptyline 50mg po hs: take 1 tab by mouth at bedtime Pramipezole 0.5mg po daily: take 1 tab by mouth once a day (8am) Spiriva 18mcg: inhale 2 puffs by mouth of 1 capsule by handheld inhaler device one a day Lactobacillus: 1 capsule by mouth twice a day (8am, 8pm) Prednisone 10mg taper: 5 tabs at once by mouth on 11/07/18. 4 tabs at once by mouth on 11/08/18. 3 tabs at once by mouth on 11/09/18. 2 tabs at once by mouth on 11/10/18. 1 tab by mouth on 11/11/18. Please schedule a follow up within one week with the following doctors: 1) Dr. Urbano - Pulmonology 2) Dr. Lemus - Gastroenterology 3) your PMD for coordination of your healthcare and for referral for psychiatry You have been set up for home oxygen and home care/physical therapy. If symptoms return or worsen, please come back to the ED. Plan was discussed with patient who understood and agreed. This is a summary of the hospital course. Please refer to the EMR for more detail. - Date & Time of H&P Date of H&P: 11/06/18 Time of H&P: 11:00 Discharge Exam - Head Exam Head Exam: ATRAUMATIC, NORMOCEPHALIC - Eye Exam Eye Exam: EOMI, Normal appearance - ENT Exam ENT Exam: Mucous Membranes Moist - Respiratory Exam Respiratory Exam: Decreased Breath Sounds, Rales, NORMAL BREATHING PATTERN. absent: Rhonchi, Wheezes Additional comments: faint rales at lung bases - Cardiovascular Exam Cardiovascular Exam: REGULAR RHYTHM, +S1, +S2. absent: Gallop, Rubs, Systolic Murmur - GI/Abdominal Exam GI & Abdominal Exam: Normal Bowel Sounds, Soft. absent: Tenderness - Extremities Exam Extremities exam: normal capillary refill, pedal pulses present - Back Exam Back exam: absent: CVA tenderness (L), CVA tenderness (R) - Neurological Exam Neurological exam: Alert, CN II-XII Intact, Oriented x3, Reflexes Normal - Psychiatric Exam Psychiatric exam: Normal Affect, Normal Mood - Skin Skin Exam: Normal Color, Warm Discharge Plan - Discharge Medications Prescriptions: Benzonatate [Tessalon Perles] 100 mg PO TID #90 sgl Famotidine [Pepcid] 20 mg PO BID #60 tab Lactobacillus Acidophilus [Bacid Acidophilus] 1 cap PO BID #60 cap Metoprolol Tartrate [Lopressor] 50 mg PO BID #60 tab Mirtazapine [Remeron] 15 mg PO HS #30 tab Nortriptyline HCl [Pamelor] 50 mg PO HS #60 capsule Pramipexole Di-HCl [Mirapex] 0.5 mg PO DAILY #30 tablet Tiotropium [Spiriva] 18 mcg INH RQ24 #30 cap - Follow Up Plan Condition: FAIR Disposition: HOME/ ROUTINE Instructions: Pneumonia, Adult (DC), Pulmonary Hypertension, Adult (DC), Supraventricular Tachycardia (SVT), Benzonatate, Famotidine, Lactobacillus, Metoprolol, Mirtazapine, Nortriptyline, Pramipexole, Tiotropium, Tachycardia (DC) Additional Instructions: Patient is clear for discharge per Dr. Hernandez. She is being restarted on her home medications except those for her Shingles outbreak. She is also being started on some new medications and should therefore take this list, and this list alone as written: Benzonatate 100mg po tid: take 1 tab bby mouth three times a day (8am, 2pm, 8pm) Pepcid 20mg po bid: take 1 tab by mouth twice a day (8am, 8pm) Metoprolol Tartrate 50mg po bid: take 1 tab by mouth twice a day (8am, 8pm) Mirtazapine 15mg po hs: take 1 tab by mouth at bedtime Nortriptyline 50mg po hs: take 1 tab by mouth at bedtime Pramipezole 0.5mg po daily: take 1 tab by mouth once a day (8am) Spiriva 18mcg: inhale 2 puffs by mouth of 1 capsule by handheld inhaler device one a day Lactobacillus: 1 capsule by mouth twice a day (8am, 8pm) Prednisone 10mg taper: 5 tabs at once by mouth on 11/07/18. 4 tabs at once by mouth on 11/08/18. 3 tabs at once by mouth on 11/09/18. 2 tabs at once by mouth on 11/10/18. 1 tab by mouth on 11/11/18. Please schedule a follow up within one week with the following doctors: 1) Dr. Urbano - Pulmonology 2) Dr. Lemus - Gastroenterology 3) your PMD for coordination of your healthcare and for referral for psychiatry You have been set up for home oxygen and home care/physical therapy. If symptoms return or worsen, please come back to the ED. Plan was discussed with patient who understood and agreed. Referrals: Brock Urbano MD [Staff Provider] - Joaquin Lemus MD [Staff Provider] - Clinical Quality Measures - CQM - VTE Did patient receive overlap therapy during hosptialization?: Yes If yes, what was given to the patient?: Heparin Is patient being discharged on overlap therapy?: No Medical Reason for discharge Overlap Therapy: No
--- NOTE | 2018-11-06 15:30 | CP.PCM.PN ---
Subjective - Date & Time of Evaluation Date of Evaluation: 11/06/18 Time of Evaluation: 13:00 - Subjective Subjective: Patient seen and examined at bedside. Resting comfortably in no acute distress. Denies CP, SOB, fever/chills, N/V. Clinically improving. Stable from pulmonary standpoint. Needs home O2. Objective - Vital Signs/Intake and Output Vital Signs (last 24 hours): Temp Pulse Resp BP Pulse Ox 98.0 F 61 18 120/68 100 11/06/18 07:20 11/06/18 07:20 11/06/18 07:20 11/06/18 07:20 11/06/18 07:20 - Medications Medications: Current Medications Acetylcysteine (Acetylcysteine 20%) 4 ml INH RQ4 [facility] Last Admin: 11/06/18 12:05 Dose: Not Given Benzonatate (Tessalon Perles) 100 mg PO TID [facility] Last Admin: 11/06/18 13:13 Dose: 100 mg Famotidine (Pepcid) 20 mg PO BID [facility] Last Admin: 11/06/18 10:05 Dose: 20 mg Guaifenesin (Mucinex [place]) 600 mg PO BID [facility] Last Admin: 11/06/18 10:05 Dose: 600 mg Metronidazole (Flagyl) 500 mg in 100 mls @ 100 mls/hr IVPB Q8H [facility]; Protocol Last Admin: 11/06/18 13:13 Dose: 100 mls/hr Ipratropium [place] (Atrovent) 0.5 mg IH RQ6 PRN PRN Reason: Shortness of Breath Last Admin: 11/06/18 07:35 Dose: 0.5 mg Lactobacillus Acidophilus (Bacid Acidophilus) 1 cap PO BID [facility] Last Admin: 11/06/18 10:05 Dose: 1 cap Methylprednisolone (Solu-Medrol) 40 mg IVP Q12H [facility] Last Admin: 11/06/18 10:05 Dose: 40 mg Metoprolol Tartrate (Lopressor) 50 mg PO BID [facility] Last Admin: 11/06/18 10:04 Dose: 50 mg Mirtazapine (Remeron) 15 mg PO HS [facility] Last Admin: 11/05/18 21:20 Dose: 15 mg Nortriptyline HCl (Pamelor) 50 mg PO HS [facility] Last Admin: 11/05/18 21:20 Dose: 50 mg Pramipexole Dihydrochloride (Mirapex) 0.5 mg PO DAILY [facility] Last Admin: 11/06/18 10:05 Dose: 0.5 mg Tiotropium [place] (Spiriva) 18 mcg INH RQ24 [facility] Last Admin: 11/06/18 07:35 Dose: 18 mcg - Labs Labs: 11/04/18 06:58 11/04/18 06:58 PT 17.8 SECONDS (9.7-12.2) H 10/27/18 12:15 INR 1.6 10/27/18 12:15 APTT 33 SECONDS (21-34) 10/27/18 12:15 Assessment and Plan (1) Pneumonia Status: Acute (2) Ulcerative colitis Status: Acute
--- NOTE | 2018-11-06 16:00 | CP.PCM.PN ---
Subjective - Date & Time of Evaluation Date of Evaluation: 11/06/18 Time of Evaluation: 07:00 - Subjective Subjective: Patient seen and examined at bedside. Resting comfortably in no acute distress. Denies CP, SOB, fever/chills, N/V. Objective - Vital Signs/Intake and Output Vital Signs (last 24 hours): Temp Pulse Resp BP Pulse Ox 98.0 F 61 18 120/68 100 11/06/18 07:20 11/06/18 07:20 11/06/18 07:20 11/06/18 07:20 11/06/18 07:20 - Medications Medications: Current Medications Acetylcysteine (Acetylcysteine 20%) 4 ml INH RQ4 [facility] Last Admin: 11/06/18 12:05 Dose: Not Given Benzonatate (Tessalon Perles) 100 mg PO TID [facility] Last Admin: 11/06/18 13:13 Dose: 100 mg Famotidine (Pepcid) 20 mg PO BID [facility] Last Admin: 11/06/18 10:05 Dose: 20 mg Guaifenesin (Mucinex [place]) 600 mg PO BID [facility] Last Admin: 11/06/18 10:05 Dose: 600 mg Metronidazole (Flagyl) 500 mg in 100 mls @ 100 mls/hr IVPB Q8H [facility]; Protocol Last Admin: 11/06/18 13:13 Dose: 100 mls/hr Ipratropium [place] (Atrovent) 0.5 mg IH RQ6 PRN PRN Reason: Shortness of Breath Last Admin: 11/06/18 07:35 Dose: 0.5 mg Lactobacillus Acidophilus (Bacid Acidophilus) 1 cap PO BID [facility] Last Admin: 11/06/18 10:05 Dose: 1 cap Methylprednisolone (Solu-Medrol) 40 mg IVP Q12H [facility] Last Admin: 11/06/18 10:05 Dose: 40 mg Metoprolol Tartrate (Lopressor) 50 mg PO BID [facility] Last Admin: 11/06/18 10:04 Dose: 50 mg Mirtazapine (Remeron) 15 mg PO HS [facility] Last Admin: 11/05/18 21:20 Dose: 15 mg Nortriptyline HCl (Pamelor) 50 mg PO HS [facility] Last Admin: 11/05/18 21:20 Dose: 50 mg Pramipexole Dihydrochloride (Mirapex) 0.5 mg PO DAILY [facility] Last Admin: 11/06/18 10:05 Dose: 0.5 mg Tiotropium [place] (Spiriva) 18 mcg INH RQ24 [facility] Last Admin: 11/06/18 07:35 Dose: 18 mcg - Labs Labs: 11/04/18 06:58 11/04/18 06:58 PT 17.8 SECONDS (9.7-12.2) H 10/27/18 12:15 INR 1.6 10/27/18 12:15 APTT 33 SECONDS (21-34) 10/27/18 12:15 - Constitutional Appears: Non-toxic, Chronically Ill - Head Exam Head Exam: NORMOCEPHALIC - Eye Exam Eye Exam: absent: Scleral icterus - ENT Exam ENT Exam: Mucous Membranes Dry - Neck Exam Neck Exam: absent: Lymphadenopathy - Respiratory Exam Respiratory Exam: Decreased Breath Sounds - Cardiovascular Exam Cardiovascular Exam: REGULAR RHYTHM - GI/Abdominal Exam GI & Abdominal Exam: Distended, Soft - Rectal Exam Rectal Exam: Deferred - Exam Exam: NORMAL INSPECTION - Extremities Exam Extremities Exam: absent: Pedal Edema - Back Exam Back Exam: absent: CVA tenderness (L), CVA tenderness (R), paraspinal tenderness Assessment and Plan (1) Fever Status: Acute - Assessment and Plan (Free Text) Assessment: Patient seen and examined at bedside. Resting comfortably in no acute distress. cont rx as out pt
[2018-11-06 16:38] VITALS: BP 119/68; PULSE 80; RESP 20; TEMP 97.4; O2SAT 99
== END 2018-11-06 17:15 | disposition home or self-care (01) | DRG 190 ==
LOC: C.ER 10:38 → C.9E 13:09 → C.6T 13:42
PROVIDERS: ADMIT Family Medicine; ATTEND Family Medicine
DX: J44.0 Chronic obstructive pulmonary disease with (acute) lower respiratory infection (principal); J18.9 Pneumonia, unspecified organism; I47.1 Supraventricular tachycardia; J98.11 Atelectasis; K50.90 Crohn's disease, unspecified, without complications; K51.90 Ulcerative colitis, unspecified, without complications; J44.1 Chronic obstructive pulmonary disease with (acute) exacerbation; R09.02 Hypoxemia; B02.9 Zoster without complications; E87.6 Hypokalemia; F32.9 Major depressive disorder, single episode, unspecified; R41.0 Disorientation, unspecified; G20 Parkinson's disease; I27.20 Pulmonary hypertension, unspecified; I50.9 Heart failure, unspecified; I73.9 Peripheral vascular disease, unspecified; Z51.5 Encounter for palliative care; Z66 Do not resuscitate; Z86.718 Personal history of other venous thrombosis and embolism; Z87.442 Personal history of urinary calculi; Z87.891 Personal history of nicotine dependence; Z91.19 Patient's noncompliance with other medical treatment and regimen

== ENCOUNTER 2018-11-08 09:55 | Inpatient (IN) | payer MEDICARE, BC ==
[2018-11-08 09:55] VITALS: BMI 20.6
[2018-11-08] MEDS ORDERED: Sodium Chloride 0.9% 1,000 ML IV ONE (10:34)
--- NOTE | 2018-11-08 10:47 | C.PDOC ---
History Of Present Illness 77 y/o female presents to ED complaining of a 2 week history of SOB and generalized weakness. Patient states she is beginning to develop abdominal pain but no chest pain. Patient was just discharged on 11/06/18 and was admitted 10 d ays before that for pneumonia. Patient finished her course of antibiotics while in the hospital and was discharged with home O2. Despite that, patient is still having SOB but denies any fever, cough, nausea, vomiting, or diarrhea. Time Seen by Provider: 11/08/18 10:06 Chief Complaint (Nursing): Shortness Of Breath History Per: Patient History/Exam Limitations: no limitations Onset/Duration Of Symptoms: Days Current Symptoms Are (Timing): Still Present Past Medical History Reviewed: Historical Data, Nursing Documentation, Vital Signs Vital Signs: Last Vital Signs Temp 99 F 11/08/18 10:04 Pulse 90 11/08/18 10:04 Resp 22 11/08/18 10:40 BP 107/50 L 11/08/18 10:04 Pulse Ox 100 11/08/18 10:32 - Medical History PMH: Crohn's Disease, Kidney Stones (09-25-18 HAS A 2 MM STONE.), Chronic Pain (ulcerative colitis) Denies: Depression, Diverticulitis, Gastritis, Gall Bladder Disease, HIV, Pancreatitis, Chronic Kidney Disease - [facility] Procedures (01/28/18) (01/28/18) (01/28/18) (01/28/18) (01/28/18) CATARAC PHACOEMULS/ASPIR (09/11/13) CLOSED ENDOSCOPIC BIOPSY OF LARGE INTESTINE (02/11/14) CYSTOSCOPY NEC (11/27/06) ESOPHAGOGASTRODUODENOSCOPY [EGD] W/CLOSED BIOPSY (03/01/04) EXCISION OF ASCENDING COLON, ENDO, DIAGN (04/20/18) EXCISION OF DESCENDING COLON, ENDO, DIAGN (04/20/18) EXCISION OF LEFT LARGE INTESTINE, ENDO, DIAGN (02/14/18) EXCISION OF RECTUM, ENDO, DIAGN (04/20/18) EXCISION OF RIGHT LARGE INTESTINE, ENDO, DIAGN (02/14/18) EXCISION OF SIGMOID COLON, ENDO, DIAGN (04/20/18) EXCISION OF TRANSVERSE COLON, ENDO, DIAGN (04/20/18) FLEXIBLE SIGMOIDOSCOPY (03/26/03) INJECT/INFUSE NEC (03/16/06) INSERT LENS AT CATAR EXT (09/11/13) MAGNETIC RESONANCE IMAGING OF SPINAL CANAL (11/28/06) REMOV URETERAL DRAIN (11/27/06) RETROGRADE PYELOGRAM (07/07/14) URETERAL CATHETERIZATION (07/07/14) Family History: States: No Known Family Hx - Social History Hx Tobacco Use: No Hx Alcohol Use: Yes (WHITE WINE DURING DINNER AT TIMES) Hx Substance Use: No - Immunization History Hx Tetanus Toxoid Vaccination: Yes Hx Influenza Vaccination: No Hx Pneumococcal Vaccination: No Review Of Systems Constitutional: Positive for: Weakness (generalized). Negative for: Fever Cardiovascular: Negative for: Chest Pain Respiratory: Positive for: Shortness of Breath. Negative for: Cough Gastrointestinal: Positive for: Abdominal Pain. Negative for: Nausea, Vomiting, Diarrhea Skin: Negative for: Rash Physical Exam - Physical Exam Appears: Non-toxic, No Acute Distress Skin: Warm, Dry, No Rash Head: Atraumatic, Normacephalic Eye(s): bilateral: Normal Inspection, PERRL, EOMI Oral Mucosa: Moist Neck: Supple Chest: Symmetrical Cardiovascular: Rhythm Regular (tachycardic), No Murmur Respiratory: No Accessory Muscle Use, Other (mild crackles throughout) Gastrointestinal/Abdominal: Soft, No Tenderness Extremity: Bilateral: Atraumatic, Normal Color And Temperature, Normal ROM Neurological/Psych: Oriented x3, Normal Speech (speaking full sentences) ED Course And Treatment - Laboratory Results Result Diagrams: 11/08/18 10:46 11/08/18 10:46 O2 Sat by Pulse Oximetry: 100 (RA) Pulse Ox Interpretation: Normal - Other Rad CXR X-Ray: Read By Radiologist Interpretation: FINDINGS: LUNGS: The lungs are well inflated. There is interval development confluent airspace disease in the right mid lung and left upper lobe. There is severe pulmonary venous congestion. PLEURA: Suspect small effusions. No pneumothorax. CARDIOVASCULAR: The heart is normal in size. No aortic atherosclerotic calcification present. OSSEOUS STRUCTURES: Within normal limits for the patient's age. VISUALIZED UPPER ABDOMEN: Normal. OTHER FINDINGS: None. IMPRESSION: Findings are most compatible with developing multifocal pneumonia versus pulmonary edema superimposed on severe pulmonary venous congestion. Suspect small pleural effusions. Medical Decision Making Medical Decision Making: Plan: --Bloodwork --Urinalysis --IV fluids 1L --Chest XR 10:05 - EKG: Normal Sinus Rhythm at 87 bpm. Normal axis. Normal intervals. No ST elevations. On re-eval patient states that she feels better on O2 and with fluids, however given fever, dyspnea and tachypnea at home, and hypoxia noted on arrival to this ED- will re-admit for further management. All results discussed with patient and she is amenable to admission. PMD Dr. Zamora requested hospitalist admission during prior visit, will contact them again. 1425- Case discussed with Dr. Giancarlo Hernandez, accepts patient for admission. Would like repeat flu swab which was ordered. Also would like blood cultures redone, they have already been drawn and are pending. Disposition - Disposition Disposition: HOSPITALIZED Disposition Time: 14:30 Condition: GOOD - Clinical Impression Clinical Impression: Fever, Dyspnea, Hypoxia - Scribe Statement The provider has reviewed the documentation as recorded by the Victor Manuel Cruz Provider Attestation: All medical record entries made by the Boibberkley were at my direction and personally dictated by me. I have reviewed the chart and agree that the record accurately reflects my personal performance of the history, physical exam, medical decision making, and the department course for this patient. I have also personally directed, reviewed, and agree with the discharge instructions and disposition.
[2018-11-08] MEDS ORDERED: Sodium Chloride 0.9% 1,000 ML ONE (10:50)
[2018-11-08 10:54] LABS: MEAN CORPUSCULAR HEMOGLOBIN 32.3 pg (27.0-31.0); MEAN PLATELET VOLUME 9.2 fL (7.2-11.7); NEUT # 9.2 K/uL (1.8-7.0)
[2018-11-08 10:58] LABS: BASO % 0.4 % (0.0-2.0); EOS # 1.3 K/uL (0.0-0.7); EOS % 10.8 % (0.0-4.0); LYMPH # 1.2 K/uL (1.0-4.3); MEAN CELL VOLUME 98.3 fL (81.0-99.0); MEAN CORPUSCULAR HGB CONC 32.8 g/dL (33.0-37.0); MONO # 0.1 K/uL (0.0-0.8); NEUT % 77.8 % (50.0-75.0); RBC 3.71 Mil/uL (3.80-5.20); RED CELL DISTRIBUTION WIDTH 14.4 % (11.5-14.5); WHITE BLOOD COUNT 11.8 K/uL (4.8-10.8)
[2018-11-08 11:12] LABS: ALBUMIN 2.7 g/dL (3.5-5.0); ALT/SGPT 27 U/L (9-52); AST/SGOT 30 U/L (14-36); BLOOD UREA NITROGEN 20 mg/dL (7-17); CALCIUM 7.6 mg/dl (8.6-10.4); GFR NON-AFRICAN AMERICAN > 60
--- NOTE | 2018-11-08 11:41 | RAD ---
Date of service: 11/08/2018 HISTORY: dyspnea COMPARISON: 11/01/2018 FINDINGS: LUNGS: The lungs are well inflated. There is interval development confluent airspace disease in the right mid lung and left upper lobe. There is severe pulmonary venous congestion. PLEURA: Suspect small effusions. No pneumothorax. CARDIOVASCULAR: The heart is normal in size. No aortic atherosclerotic calcification present. OSSEOUS STRUCTURES: Within normal limits for the patient's age. VISUALIZED UPPER ABDOMEN: Normal. OTHER FINDINGS: None. IMPRESSION: Findings are most compatible with developing multifocal pneumonia versus pulmonary edema superimposed on severe pulmonary venous congestion. Suspect small pleural effusions.
[2018-11-08 11:57] LABS: VENOUS BLOOD GAS BASE EXCESS 6.9 mmol/L (0.0-2.0); VENOUS BLOOD GAS PCO2 49 mmHg (40-60); VENOUS BLOOD GAS PO2 34 mm/Hg (30-55); VENOUS BLOOD PH 7.43 (7.32-7.43)
[2018-11-08 13:59] LABS: SQUAMOUS EPITHIAL < 1 /hpf (0-5); URINE BILIRUBIN NEGATIVE (NEGATIVE); URINE BLOOD NEGATIVE (NEGATIVE); URINE CLARITY Clear (Clear); URINE COLOR Yellow (YELLOW); URINE GLUCOSE (UA) NORMAL (Normal); URINE LEUKOCYTE ESTERASE NEG Leu/uL (Negative); URINE PROTEIN NEGATIVE (NEGATIVE); URINE UROBILINOGEN NORMAL mg/dL (0.2-1.0)
[2018-11-08] MEDS: Lactobacillus Acidophilus 500 MU Cap PO SCH (19:12)
--- NOTE | 2018-11-08 19:41 | CP.PCM.HP ---
<Sofia Alvarez - Last Filed: 11/08/18 19:34> History of Present Illness - History of Present Illness History of Present Illness: cc: "I feel weak" Ms. Cano is a 77 year old female with PMH ulcerative colitis, nephrolithiasis, herpes zoster, Parkinson's, remote history of DVT with recent admission for C Diff was recently discharged on 11/06 for multifocal pneumonia. She comes today for generalized weakness and overall deconditioning. She did fill her prescriptions are prescribed and her son (who is a pharmacist) divided her medications to not be mixed up by day. However, she has not left the bed since being discharged and ran out of home oxygen after the first day since she was unaware it had to be refilled and the oxygen continuous. She has not been encouraged to exercise or get out of bed since being discharged. Sister called ambulance today after patient reported feeling too weak to even walk to the bathroom. Patient had refused NAHID on discharge. PMH: UC, nephrolithiasis, Shingles, Parkinson's DVT, C-diff, PNA PSxHx: EGD, Colonoscopy, tubal ligation All: NKDA SHx: quit smoking 15yrs ago, former 1/2ppd; social EtOH; denies drug use FHx: Noncontributory DNR/DNI: POLST on file Present on Admission - Present on Admission Any Indicators Present on Admission: No Review of Systems - Constitutional Constitutional: Malaise, Weight Loss, Weakness. absent: Chills, Excessive Sweating, Fever, Headache, Lethargy, Night Sweats - EENT Eyes: absent: Blurred Vision, Diplopia, Dry Eye, Itchy Eyes Ears: absent: Decreased Hearing, Tinnitus Nose/Mouth/Throat: absent: Nasal Congestion, Nasal Discharge, Dysphagia, Halitosis, Hoarsness, Odynophagia, Sore Throat - Cardiovascular Cardiovascular: absent: Chest Pain, Chest Pain at Rest, Chest Pain with Activity, Dyspnea, Dyspnea on Exertion, Edema, Lightheadedness, Palpitations, Syncope - Respiratory Respiratory: absent: Cough, Dyspnea, Hemoptysis, Chest Congestion - Gastrointestinal Gastrointestinal: absent: Bloating, Constipation, Diarrhea (patient admits to loose stool, last normal BM Wed on discharge), Dysphagia, Nausea, Odynophagia, Vomiting - Genitourinary Genitourinary: absent: Difficulty Urinating, Urinary Frequency, Urinary Hesitance - Musculoskeletal Musculoskeletal: absent: Arthralgias, Back Pain, Joint Swelling, Muscle Cramps, Myalgias, Neck Pain, Stiffness, Tingling - Integumentary Integumentary: Unusual Bruising. absent: Bleeding Lesions, Rash - Neurological Neurological: Abnormal Gait, Weakness. absent: Confusion, Disequilibrium, Numbness, Headaches, Tingling - Psychiatric Psychiatric: absent: Anxiety, Confusion, Depression, Hallucinations - Endocrine Endocrine: absent: Heat Intolorance, Increase in Ring/Shoe/Hat Size - Hematologic/Lymphatic Hematologic: Easy Bruising Past Patient History - Infectious Disease Hx of Infectious Diseases: None - Tetanus Immunizations Tetanus Immunization: Unknown - Past Medical History & Family History Past Medical History?: Yes - Past Social History Smoking Status: Former Smoker Alcohol: Social Drugs: Denies - CARDIAC Hx Cardiac Disorders: Yes Hx Peripheral Vascular Disease: Yes (DVT) - PULMONARY Hx Respiratory Disorders: Yes (USED TO SMOKE CIGARETTES 1/2 PPD.15 YRS AGO.SMOKED SOCIALLY.) Hx Chronic Obstructive Pulmonary Disease (COPD): Yes - NEUROLOGICAL Hx Neurological Disorder: Yes (TREMORS MAINLY TO LEFT HAND. PT ON MEDICATION FOR PARKINSON'S) - HEENT Hx HEENT Problems: No - RENAL Hx Chronic Kidney Disease: No Hx Kidney Stones: Yes (09-25-18 HAS A 2 MM STONE.) - ENDOCRINE/METABOLIC Hx Endocrine Disorders: No - HEMATOLOGICAL/ONCOLOGICAL Hx Human Immunodeficiency Virus (HIV): No - INTEGUMENTARY Hx Dermatological Problems: Yes Other/Comment: 09-25-18 SLIGHT REDDENED RASH TO RIGHT FLANK AREA. HAS PAIN. R/O SHINGLES. - MUSCULOSKELETAL/RHEUMATOLOGICAL Hx Musculoskeletal Disorders: Yes Hx Falls: Yes - GASTROINTESTINAL Hx Crohn's Disease: Yes Hx Diverticulitis: No Hx Gall Bladder Disease: No Hx Gastritis: No Hx Pancreatitis: No - GENITOURINARY/GYNECOLOGICAL Hx Genitourinary Disorders: Yes (Kidney stones last 2013,TUBAL LIGATION. C.S) - PSYCHIATRIC Hx Depression: No Hx Substance Use: No - SURGICAL HISTORY Hx Surgeries: Yes (BILATERAL CATARACT SX, TONSILLECTOMY,C/S,TUBAL LIGATION, KIDNEY STONE.) - ANESTHESIA Hx Anesthesia: No Hx Anesthesia Reactions: No Hx Malignant Hyperthermia: No Meds Allergies/Adverse Reactions: Allergies Allergy/AdvReac Type Severity Reaction Status Date / Time No Known Allergies Allergy Verified 11/08/18 10:09 Physical Exam - Constitutional Appears: Non-toxic, No Acute Distress - Head Exam Head Exam: ATRAUMATIC, NORMOCEPHALIC - Eye Exam Eye Exam: EOMI, Normal appearance, PERRL - ENT Exam ENT Exam: Mucous Membranes Moist - Respiratory Exam Respiratory Exam: Decreased Breath Sounds, Rales (on the R), Wheezes, NORMAL BREATHING PATTERN. absent: Rhonchi Additional comments: humidified O2 via NC - Cardiovascular Exam Cardiovascular Exam: REGULAR RHYTHM, +S1, +S2. absent: Gallop, Rubs, Systolic Murmur - GI/Abdominal Exam GI & Abdominal Exam: Normal Bowel Sounds, Soft. absent: Tenderness - Extremities Exam Extremities exam: Positive for: normal capillary refill, pedal pulses present. Negative for: calf tenderness - Back Exam Back exam: absent: CVA tenderness (L), CVA tenderness (R) - Neurological Exam Neurological exam: Alert, CN II-XII Intact, Oriented x3 Additional comments: muscle strength 4/5 in LE, 3/5 in UE sensation intact - Psychiatric Exam Psychiatric exam: Depressed - Skin Skin Exam: Normal Color, Warm Results - Vital Signs Recent Vital Signs: Last Vital Signs Temp 97.8 F 11/08/18 17:22 Pulse 76 11/08/18 17:22 Resp 24 11/08/18 18:27 BP 114/70 11/08/18 17:22 Pulse Ox 100 11/08/18 18:52 - Labs Result Diagrams: 11/08/18 10:46 11/08/18 10:46 Labs: Laboratory Results - last 24 hr 11/08/18 11/08/18 11/08/18 10:06 10:46 10:46 WBC 11.8 H RBC 3.71 L Hgb 12.0 Hct 36.5 MCV 98.3 MCH 32.3 H MCHC 32.8 L RDW 14.4 Plt Count 284 MPV 9.2 Neut % (Auto) 77.8 H Lymph % (Auto) 10.0 L [place] % (Auto) 1.0 Eos % (Auto) 10.8 H Baso % (Auto) 0.4 Neut # (Auto) 9.2 H Lymph # (Auto) 1.2 [place] # (Auto) 0.1 Eos # (Auto) 1.3 H Baso # (Auto) 0.0 pO2 VBG pH VBG pCO2 VBG HCO3 VBG Total CO2 VBG O2 Sat (Calc) VBG Base Excess VBG Potassium Glucose Lactate Sodium 137 Potassium 3.6 Chloride 99 Carbon Dioxide 32 H Anion Gap 10 BUN 20 H Creatinine 0.6 L Est GFR ( Amer) > 60 Est GFR (Non-Af Amer) > 60 POC Glucose (mg/dL) 80 Random Glucose 82 D Calcium 7.6 L Phosphorus 3.7 Magnesium 1.7 Total Bilirubin 0.7 AST 30 ALT 27 Alkaline Phosphatase 108 NT-Pro-B Natriuret Pep Total Protein 5.6 L Albumin 2.7 L Globulin 2.8 Albumin/Globulin Ratio 1.0 Venous Blood Potassium Urine Color Urine Clarity Urine pH Ur Specific [place] Urine Protein Urine Glucose (UA) Urine Ketones Urine Blood Urine Nitrate Urine Bilirubin Urine Urobilinogen Ur Leukocyte Esterase Urine WBC (Auto) Urine RBC (Auto) Ur Squamous Epith Cells Influenza Typ A,B (EIA) 11/08/18 11/08/18 11/08/18 11:45 13:51 14:40 WBC RBC Hgb Hct MCV MCH MCHC RDW Plt Count MPV Neut % (Auto) Lymph % (Auto) [place] % (Auto) Eos % (Auto) Baso % (Auto) Neut # (Auto) Lymph # (Auto) [place] # (Auto) Eos # (Auto) Baso # (Auto) pO2 34 VBG pH 7.43 VBG pCO2 49 VBG HCO3 29.5 VBG Total CO2 34.0 H VBG O2 Sat (Calc) 70.5 H VBG Base Excess 6.9 H VBG Potassium 3.3 L Glucose 72 Lactate 1.6 Sodium 141.0 Potassium Chloride 101.0 Carbon Dioxide Anion Gap BUN Creatinine Est GFR ( Amer) Est GFR (Non-Af Amer) POC Glucose (mg/dL) Random Glucose Calcium Phosphorus Magnesium Total Bilirubin AST ALT Alkaline Phosphatase NT-Pro-B Natriuret Pep Total Protein Albumin Globulin Albumin/Globulin Ratio Venous Blood Potassium 3.3 L Urine Color Yellow Urine Clarity Clear Urine pH 8.0 Ur Specific [place] 1.014 Urine Protein Negative Urine Glucose (UA) Normal Urine Ketones Negative Urine Blood Negative Urine Nitrate Negative Urine Bilirubin Negative Urine Urobilinogen Normal Ur Leukocyte Esterase Neg Urine WBC (Auto) 2 Urine RBC (Auto) 1 Ur Squamous Epith Cells < 1 Influenza Typ A,B (EIA) Negative for flu a/b 11/08/18 15:29 WBC RBC Hgb Hct MCV MCH MCHC RDW Plt Count MPV Neut % (Auto) Lymph % (Auto) [place] % (Auto) Eos % (Auto) Baso % (Auto) Neut # (Auto) Lymph # (Auto) [place] # (Auto) Eos # (Auto) Baso # (Auto) pO2 VBG pH VBG pCO2 VBG HCO3 VBG Total CO2 VBG O2 Sat (Calc) VBG Base Excess VBG Potassium Glucose Lactate Sodium Potassium Chloride Carbon Dioxide Anion Gap BUN Creatinine Est GFR ( Amer) Est GFR (Non-Af Amer) POC Glucose (mg/dL) Random Glucose Calcium Phosphorus Magnesium Total Bilirubin AST ALT Alkaline Phosphatase NT-Pro-B Natriuret Pep 7720 H Total Protein Albumin Globulin Albumin/Globulin Ratio Venous Blood Potassium Urine Color Urine Clarity Urine pH Ur Specific [place] Urine Protein Urine Glucose (UA) Urine Ketones Urine Blood Urine Nitrate Urine Bilirubin Urine Urobilinogen Ur Leukocyte Esterase Urine WBC (Auto) Urine RBC (Auto) Ur Squamous Epith Cells Influenza Typ A,B (EIA) Assessment & Plan - Assessment and Plan (Free Text) Assessment: 77yo F PMH UC, Parkinson's, Depresion, DVT, C.diff recently discharged for multifocal pneumonia admitted for failure to thrive. Plan: Pulmonary Edema vs. Developing Multifocal Pneumonia - CXR (11/08): developing multifocal pneumonia vs. pulm edema superimposed on severe pulm venous congestion - VBG shows CO2 retention - BNP 7720, elevated from 795 on 04/20/18 - UA neg, Influenza A, B neg - given IVF in ED, suspect fluid overload - given Lasix 20mg IVP, f/u CXR at 1pm christina. if improved, will confirm fluid overload. If not improved, will start antibiotics - not starting antibiotics at this point due to extensive antibiotics given last admission and suspicion against newly developing pneumonia. 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 Due to patient's condition, should really consider NAHID for rehab on discharge despite refusing last admission. She must be set up and educated on Home O2 for proper usage. d/w Dr. Stephani Alvarez PGY-1 - Date & Time Date: 11/08/18 Time: 15:15 <Giancarlo Hernandez - Last Filed: 11/12/18 22:28> Results - Vital Signs Recent Vital Signs: Last Vital Signs Temp 99 F 11/12/18 15:00 Pulse 72 11/12/18 15:00 Resp 20 11/12/18 15:00 BP 104/70 11/12/18 19:53 Pulse Ox 99 11/12/18 15:00 - Labs Result Diagrams: 11/12/18 06:46 11/12/18 06:46 Labs: Laboratory Results - last 24 hr 11/12/18 11/12/18 11/12/18 06:46 06:46 07:00 WBC 8.9 RBC 3.71 L Hgb 12.2 Hct 36.1 MCV 97.4 MCH 33.0 H MCHC 33.9 RDW 13.9 Plt Count 290 MPV 9.0 Neut % (Auto) 42.3 L Lymph % (Auto) 34.2 [place] % (Auto) 13.0 H Eos % (Auto) 9.8 H Baso % (Auto) 0.7 Neut # (Auto) 3.7 Lymph # (Auto) 3.0 [place] # (Auto) 1.2 H Eos # (Auto) 0.9 H Baso # (Auto) 0.1 Sodium 134 Potassium 4.0 Chloride 90 L Carbon Dioxide 37 H Anion Gap 10 BUN 34 H Creatinine 0.7 Est GFR ( Amer) > 60 Est GFR (Non-Af Amer) > 60 POC Glucose (mg/dL) 99 Random Glucose 100 D Calcium 9.0 Phosphorus 4.9 H Magnesium 1.9 Total Bilirubin 0.5 AST 24 ALT 32 Alkaline Phosphatase 123 Total Protein 6.8 Albumin 3.4 L D Globulin 3.3 Albumin/Globulin Ratio 1.0 11/12/18 11/12/18 17:04 21:46 WBC RBC Hgb Hct MCV MCH MCHC RDW Plt Count MPV Neut % (Auto) Lymph % (Auto) [place] % (Auto) Eos % (Auto) Baso % (Auto) Neut # (Auto) Lymph # (Auto) [place] # (Auto) Eos # (Auto) Baso # (Auto) Sodium Potassium Chloride Carbon Dioxide Anion Gap BUN Creatinine Est GFR ( Amer) Est GFR (Non-Af Amer) POC Glucose (mg/dL) 164 H 143 H Random Glucose Calcium Phosphorus Magnesium Total Bilirubin AST ALT Alkaline Phosphatase Total Protein Albumin Globulin Albumin/Globulin Ratio Attending/Attestation - Attestation I have personally seen and examined this patient.: Yes I have fully participated in the care of the patient.: Yes I have reviewed all pertinent clinical information: Yes Notes (Text): 11/12/18 22:28 This is a late entry. Care of this patient was gone over in detail with resident Dr. Brad Alvarez. Giancarlo Hernandez D.O.
[2018-11-09] MEDS: Tiotropium 18 mcg Cap For Inhalation INH SCH (07:57)
--- NOTE | 2018-11-09 08:16 | CP.PCM.PN ---
<Everette Daly - Last Filed: 11/09/18 21:46> Subjective - Date & Time of Evaluation Date of Evaluation: 11/09/18 Time of Evaluation: 08:00 - Subjective Subjective: PGY-[address] Giancarlo Hernandez Patient is seen and examined at bedside. Patient reports feeling well, denies shortness of breath, chest pain. Patient states she had one diarrhea yesterday, but clarifies that it was soft stool. Patient was complaining of being wet this morning, as patient urinated in bed. Patient is seen using high flow oxygen device. Patient denies fever, chills, chest pain, shortness of breath, abdominal pain, n/v/d/c or urinary symptoms, or leg pain, swelling. Objective - Vital Signs/Intake and Output Vital Signs (last 24 hours): Temp Pulse Resp BP Pulse Ox 98.8 F 77 23 110/62 95 11/09/18 04:00 11/09/18 04:00 11/09/18 07:57 11/09/18 06:00 11/09/18 04:00 - Medications Medications: Current Medications Benzonatate (Tessalon Perles) 100 mg PO TID [facility] Last Admin: 11/08/18 17:51 Dose: 100 mg Ergocalciferol (Drisdol 50,000 Intl Units Cap) 1 cap PO QWK [facility] Famotidine (Pepcid) 20 mg PO BID [facility] Last Admin: 11/08/18 17:51 Dose: 20 mg Heparin Sodium (Porcine) (Heparin) 5,000 units SC Q8 [facility] Last Admin: 11/09/18 05:58 Dose: 5,000 units Lactobacillus Acidophilus (Bacid Acidophilus) 1 cap PO BID [facility] Stop: 12/05/18 18:00 Last Admin: 11/08/18 19:12 Dose: 1 cap Metoprolol Tartrate (Lopressor) 50 mg PO BID [facility] Last Admin: 11/08/18 17:52 Dose: 50 mg Mirtazapine (Remeron) 15 mg PO HS [facility] Last Admin: 11/08/18 21:46 Dose: Not Given Nortriptyline HCl (Pamelor) 50 mg PO HS [facility] Last Admin: 11/08/18 21:46 Dose: 50 mg Oseltamivir Phosphate (Tamiflu Cap) 75 mg PO BID [facility]; Protocol Stop: 11/13/18 18:00 Last Admin: 11/08/18 17:51 Dose: 75 mg Pramipexole Dihydrochloride (Mirapex) 0.5 mg PO DAILY [facility] Prednisone (Prednisone Tab) 30 mg PO ONCE ONE Stop: 11/09/18 10:01 Prednisone (Prednisone Tab) 20 mg PO ONCE ONE Stop: 11/10/18 10:01 Prednisone (Prednisone Tab) 10 mg PO ONCE ONE Stop: 11/11/18 10:01 Tiotropium [place] (Spiriva) 18 mcg INH RQ24 [facility] Last Admin: 11/09/18 07:57 Dose: 18 mcg - Labs Labs: 11/08/18 10:46 11/08/18 10:46 - Constitutional Appears: Non-toxic, No Acute Distress - Head Exam Head Exam: ATRAUMATIC, NORMAL INSPECTION, NORMOCEPHALIC - Eye Exam Eye Exam: EOMI, Normal appearance - ENT Exam ENT Exam: Mucous Membranes Moist - Neck Exam Neck Exam: Full ROM - Respiratory Exam Respiratory Exam: Clear to Ausculation Bilateral, NORMAL BREATHING PATTERN Additional comments: crackles auscultated on lung bases bilaterally - Cardiovascular Exam Cardiovascular Exam: REGULAR RHYTHM, +S1, +S2 - GI/Abdominal Exam GI & Abdominal Exam: Soft, Normal Bowel Sounds - Extremities Exam Extremities Exam: Full ROM, Normal Inspection. absent: Calf Tenderness, Pedal Edema, Tenderness - Back Exam Back Exam: NORMAL INSPECTION - Neurological Exam Neurological Exam: Alert, Awake, CN II-XII Intact, Oriented x3 - Psychiatric Exam Psychiatric exam: Flat Affect, Normal Mood - Skin Skin Exam: Normal Color, Warm Assessment and Plan - Assessment and Plan (Free Text) Plan: Pulmonary Edema vs. Developing Multifocal Pneumonia - CXR (11/08): developing multifocal pneumonia vs. pulm edema superimposed on severe pulm venous congestion - repeat CXR: Little interval change in multifocal pneumonia versis pulmonary edema, superimposed on severe pulmonary venous congestion. - VBG shows CO2 retention - BNP 7720, elevated from 795 on 04/20/18 - UA neg, Influenza A, B neg - given IVF in ED, suspect fluid overload - given Lasix 20mg IVP, f/u CXR at 1pm christina. if improved, will confirm fluid overload. If not improved, will start antibiotics - not starting antibiotics at this point due to extensive antibiotics given last admission and suspicion against newly developing pneumonia. - extensively treated with Primaxin and metronidazole as noted below - Dr Summers - ID consult for eval to r/o PNA- f/u recs - Tamiflu 75mg po bid prophylaxis for fever - Lasix 10mg IVP at 18:00 - hold if SBP < 100 - Lasix 10mg IVP Q12H - F/U blood culture COPD - Tessalon Pearles 100mg po tid - Spiriva 18mcg INH daily - Continue O2 high flow 60% Diastolic Heart Failure, chronic - Metoprolol 50mg po bid - maintain HOB at 45 degress - strict I&Os - daily weights Parkinson's - Mirapex 0.5mg po daily Depression - Mirtazapine 15mg po hs - Nortriptyline 50mg po hs VitD deficiency - Ergocalciferol 1 cap po qwk Hx C.diff colitis - patient reports diarrhea, but on further questioning admits episodic loose stool - last normal BM was on Wed at discharge - non bloody stool at this time, will continue to monitor - C. diff toxin A and B - f/u PPx - DVT: Heparin 5000u sc q8, SCDs - GI: home Pepcid 20mg po bid, Bacid - Diet: HHD, Ensure Enlive 3 bottles, [place] - PT/OT - nursing communication for patient to be educated to call for bedpan when going and for patient to be changed if wet, with the purpose to prevent urinary infections. Plan discussed with Dr David Daly, PGY-1 <Giancarlo Hernandez - Last Filed: 11/12/18 22:28> Objective - Vital Signs/Intake and Output Vital Signs (last 24 hours): Temp Pulse Resp BP Pulse Ox 99 F 72 20 104/70 99 11/12/18 15:00 11/12/18 15:00 11/12/18 15:00 11/12/18 19:53 11/12/18 15:00 - Medications Medications: Current Medications Benzonatate (Tessalon Perles) 100 mg PO TID [facility] Last Admin: 11/12/18 19:55 Dose: 100 mg Ergocalciferol (Drisdol 50,000 Intl Units Cap) 1 cap PO QWK [facility] Last Admin: 11/09/18 10:00 Dose: 1 cap Famotidine (Pepcid) 20 mg PO BID [facility] Last Admin: 11/12/18 19:54 Dose: 20 mg Furosemide (Lasix) 10 mg IVP Q12H [facility] Last Admin: 11/12/18 19:53 Dose: 10 mg Lactobacillus Acidophilus (Bacid Acidophilus) 1 cap PO BID [facility] Stop: 12/05/18 18:00 Last Admin: 11/12/18 19:53 Dose: 1 cap Metoprolol Tartrate (Lopressor) 50 mg PO BID [facility] Last Admin: 11/12/18 22:22 Dose: 50 mg Mirtazapine (Remeron) 15 mg PO HS [facility] Last Admin: 11/12/18 22:23 Dose: 15 mg Nortriptyline HCl (Pamelor) 50 mg PO HS [facility] Last Admin: 11/12/18 22:23 Dose: 50 mg Pramipexole Dihydrochloride (Mirapex) 0.5 mg PO DAILY [facility] Last Admin: 11/12/18 10:33 Dose: 0.5 mg Tiotropium [place] (Spiriva) 18 mcg INH RQ24 [facility] Last Admin: 11/12/18 09:27 Dose: 18 mcg - Labs Labs: 11/12/18 06:46 11/12/18 06:46 Attending/Attestation - Attestation I have personally seen and examined this patient.: Yes I have fully participated in the care of the patient.: Yes I have reviewed all pertinent clinical information, including history, physical exam and plan: Yes Notes (Text): 11/12/18 22:28 This is a late entry. Care of this patient was gone over in detail with resident Dr. Toan Daly. Giancarlo Hernandez D.O.
[2018-11-09] MEDS: Lactobacillus Acidophilus 500 MU Cap PO SCH ×2 (09:59→17:34)
[2018-11-09] MEDS ORDERED: Ergocalciferol 50,000 Intl Units Cap PO SCH (10:00)
--- NOTE | 2018-11-09 16:28 | RAD ---
Date of service: 11/09/2018 HISTORY: Pulmonary congestion COMPARISON: 11/08/2018. FINDINGS: LUNGS: There is no significant interval change in confluent airspace disease in the right mid lung and left upper lobe. There is severe pulmonary venous congestion. PLEURA: Suspect small effusions. No pneumothorax CARDIOVASCULAR: The heart is normal in size. There are aortic atherosclerotic calcifications present. OSSEOUS STRUCTURES: Within normal limits for the patient's age. VISUALIZED UPPER ABDOMEN: Normal. OTHER FINDINGS: None. IMPRESSION: Little interval change in multifocal pneumonia versus pulmonary edema superimposed on severe pulmonary venous congestion. Suspect small effusions.
[2018-11-10] MEDS: Tiotropium 18 mcg Cap For Inhalation INH SCH (08:00)
[2018-11-10 08:05] LABS: BASO # 0.1 K/uL (0.0-0.2); BASO % 1.4 % (0.0-2.0); EOS # 0.3 K/uL (0.0-0.7); EOS % 2.9 % (0.0-4.0); HEMOGLOBIN 10.7 g/dL (11.0-16.0); LYMPH # 2.1 K/uL (1.0-4.3); LYMPH % 21.3 % (20.0-40.0); MEAN CORPUSCULAR HEMOGLOBIN 33.3 pg (27.0-31.0); MEAN PLATELET VOLUME 9.3 fL (7.2-11.7); MONO % 10.1 % (0.0-10.0); NEUT # 6.3 K/uL (1.8-7.0); NEUT % 64.3 % (50.0-75.0); NRBC % 0.1 % (0.0-2.0); RBC 3.22 Mil/uL (3.80-5.20); WHITE BLOOD COUNT 9.8 K/uL (4.8-10.8)
[2018-11-10 08:09] LABS: ALBUMIN 2.8 g/dL (3.5-5.0); ALT/SGPT 22 U/L (9-52); AST/SGOT 12 U/L (14-36); BLOOD UREA NITROGEN 29 mg/dL (7-17); CALCIUM 8.2 mg/dl (8.6-10.4); GFR NON-AFRICAN AMERICAN > 60
[2018-11-10] MEDS: Lactobacillus Acidophilus 500 MU Cap PO SCH ×2 (09:42→18:28)
[2018-11-10] MEDS ORDERED: Potassium Chloride 20 mEq ER Tab PO SCH (10:00)
--- NOTE | 2018-11-10 13:42 | CP.PCM.PN ---
<Everette Daly - Last Filed: 11/10/18 20:10> Subjective - Date & Time of Evaluation Date of Evaluation: 11/10/18 Time of Evaluation: 13:42 - Subjective Subjective: PGY-[address] Giancarlo Hernandez Patient is seen and examined at bedside. Patient denies any acute events overnight. Patient admits feeling well, with no complaints. Patient continues drinking nutritional supplement. Patient is using bed braun for urinating. denies any fevers, chills, chest pain, shortness of breath, n/v/d/c or urinary complaints. denies leg swelling/pain. Objective - Vital Signs/Intake and Output Vital Signs (last 24 hours): Temp Pulse Resp BP Pulse Ox 97.6 F 77 18 105/64 98 11/10/18 08:32 11/10/18 11:59 11/10/18 08:50 11/10/18 08:32 11/10/18 11:59 - Medications Medications: Current Medications Benzonatate (Tessalon Perles) 100 mg PO TID [facility] Last Admin: 11/10/18 13:30 Dose: 100 mg Ergocalciferol (Drisdol 50,000 Intl Units Cap) 1 cap PO QWK [facility] Last Admin: 11/09/18 10:00 Dose: 1 cap Famotidine (Pepcid) 20 mg PO BID [facility] Last Admin: 11/10/18 09:41 Dose: 20 mg Furosemide (Lasix) 10 mg IVP Q12H [facility] Last Admin: 11/10/18 06:04 Dose: Not Given Heparin Sodium (Porcine) (Heparin) 5,000 units SC Q8 [facility] Last Admin: 11/10/18 13:31 Dose: 5,000 units Lactobacillus Acidophilus (Bacid Acidophilus) 1 cap PO BID [facility] Stop: 12/05/18 18:00 Last Admin: 11/10/18 09:42 Dose: 1 cap Metoprolol Tartrate (Lopressor) 50 mg PO BID [facility] Last Admin: 11/10/18 09:42 Dose: Not Given Mirtazapine (Remeron) 15 mg PO HS [facility] Last Admin: 11/09/18 21:48 Dose: Not Given Nortriptyline HCl (Pamelor) 50 mg PO HS [facility] Last Admin: 11/09/18 21:48 Dose: 50 mg Oseltamivir Phosphate (Tamiflu Cap) 75 mg PO BID [facility]; Protocol Stop: 11/13/18 18:00 Last Admin: 11/10/18 09:41 Dose: 75 mg Potassium Chloride (K-Dur 20 Meq Er Tab) 40 meq PO DAILY [facility] Last Admin: 11/10/18 09:42 Dose: 40 meq Potassium Chloride (K-Dur 20 Meq Er Tab) 40 meq PO ONCE ONE Stop: 11/10/18 14:01 Last Admin: 11/10/18 13:30 Dose: 40 meq Pramipexole Dihydrochloride (Mirapex) 0.5 mg PO DAILY [facility] Last Admin: 11/10/18 09:41 Dose: 0.5 mg Prednisone (Prednisone Tab) 10 mg PO ONCE ONE Stop: 11/11/18 10:01 Tiotropium [place] (Spiriva) 18 mcg INH RQ24 [facility] Last Admin: 11/10/18 08:00 Dose: 18 mcg - Labs Labs: 11/10/18 07:42 11/10/18 07:42 - Constitutional Appears: Non-toxic, No Acute Distress, Cachectic, Chronically Ill - Head Exam Head Exam: ATRAUMATIC, NORMAL INSPECTION, NORMOCEPHALIC - Eye Exam Eye Exam: EOMI, Normal appearance - ENT Exam ENT Exam: Mucous Membranes Moist, Normal Exam Additional comments: nasal canula in place with high flow oxygen at 60% - Neck Exam Neck Exam: Full ROM, Normal Inspection - Respiratory Exam Respiratory Exam: Clear to Ausculation Bilateral, NORMAL BREATHING PATTERN. absent: Accessory Muscle Use, Rales, Rhonchi, Wheezes, Respiratory Distress - Cardiovascular Exam Cardiovascular Exam: REGULAR RHYTHM, +S1, +S2. absent: Tachycardia - GI/Abdominal Exam GI & Abdominal Exam: Soft, Normal Bowel Sounds. absent: Distended, Guarding, Tenderness - Extremities Exam Extremities Exam: Full ROM, Normal Inspection. absent: Joint Swelling, Pedal Edema, Tenderness - Back Exam Back Exam: Full ROM, NORMAL INSPECTION - Neurological Exam Neurological Exam: Alert, Awake, Oriented x3. absent: Normal Gait - Psychiatric Exam Psychiatric exam: Normal Affect, Normal Mood - Skin Skin Exam: Dry, Intact, Normal Color, Warm Assessment and Plan - Assessment and Plan (Free Text) Plan: Pulmonary Edema likely diastolic HF exarcerbation , chronic vs PNA - CXR (11/08): developing multifocal pneumonia vs. pulm edema superimposed on severe pulm venous congestion - repeat CXR: Little interval change in multifocal pneumonia versis pulmonary edema, superimposed on severe pulmonary venous congestion. - VBG shows CO2 retention - BNP 7720, elevated from 795 on 04/20/18 - UA neg, Influenza A, B neg - given IVF in ED, suspect fluid overload - given Lasix 20mg IVP, f/u CXR at 1pm christina. if improved, will confirm fluid overload. If not improved, will start antibiotics - not starting antibiotics at this point due to extensive antibiotics given last admission and suspicion against newly developing pneumonia. - extensively treated with Primaxin and metronidazole as noted below - Dr Summers - ID consult for eval to r/o PNA- f/u recs - likely acute exac COPD/CHF - cultures so far negative - overall poor prognosis - DR Rodas - Cardiology consult - evaluation for HF exarcerb - help is appreciated - will follow up recs - Tamiflu 75mg po bid prophylaxis for fever - F/U blood culture - vitals within normal limits today - Metoprolol 50mg po bid - Lasix 10mg IVP Q12H - maintain HOB at 45 degress - strict I&Os - daily weights COPD - Tessalon Pearles 100mg po tid - Spiriva 18mcg INH daily - Continue O2 high flow Parkinson's - Mirapex 0.5mg po daily Depression - Mirtazapine 15mg po hs - Nortriptyline 50mg po hs VitD deficiency - Ergocalciferol 1 cap po qwk Hx C.diff colitis - patient reports diarrhea, but on further questioning admits episodic loose stool - last normal BM was on Sun at discharge - non bloody stool at this time, will continue to monitor - C. diff toxin A and B - f/u Hypokalemia - 11/10 K 3.2 - Kdur 40meq x 1 dose - follow up am labs - replete as needed PPx - DVT: Heparin 5000u sc q8, SCDs - GI: home Pepcid 20mg po bid, Bacid - Diet: HHD, Ensure Enlive 3 bottles, [place] - PT/OT - f/u recs - nursing communication for patient to be educated to call for bedpan when going and for patient to be changed if wet, with the purpose to prevent urinary infections. DISPO: Family at bedside today, spoke with older sister lauren, and visiting brother Anastacio. Sister Lauren lives with patient and communicated to me that when patient was discharged last time from hospital back home , she used oxygen, but they did not know how to operate the machine. As per sister, EMS staff that transported the patient back to the hospital for this current admission mentioned that oxygen tank was empty and might have been left open. Patient's family asked questions about patient's conditions and about plan. family informed that patient is currently stable, and that we dont believe she has pneumonia in this admission, and that we are continuing to follow her on a daily basis as well as PT will be following her and that we ultimately believe [facility] is the best option for her to continue her treatment. will follow up with PT on recs in terms of recommendations for to go to [facility]. After talking to family, Bladimir Strange was called and there was no response. Left message that we will continue to follow up and that he can call back to nursing station. Family members mentioned that they will inform bladimir Strange about our conversation this afternoon. we will follow up with SW on 11/11 on the arrangements for [facility] if recommended. will continue to touch base with family. Plan discussed with Dr David Daly, PGY-1 <Giancarlo Hernandez - Last Filed: 11/12/18 22:27> Objective - Vital Signs/Intake and Output Vital Signs (last 24 hours): Temp Pulse Resp BP Pulse Ox 99 F 72 20 104/70 99 11/12/18 15:00 11/12/18 15:00 11/12/18 15:00 11/12/18 19:53 11/12/18 15:00 - Medications Medications: Current Medications Benzonatate (Tessalon Perles) 100 mg PO TID [facility] Last Admin: 11/12/18 19:55 Dose: 100 mg Ergocalciferol (Drisdol 50,000 Intl Units Cap) 1 cap PO QWK [facility] Last Admin: 11/09/18 10:00 Dose: 1 cap Famotidine (Pepcid) 20 mg PO BID [facility] Last Admin: 11/12/18 19:54 Dose: 20 mg Furosemide (Lasix) 10 mg IVP Q12H [facility] Last Admin: 11/12/18 19:53 Dose: 10 mg Lactobacillus Acidophilus (Bacid Acidophilus) 1 cap PO BID [facility] Stop: 12/05/18 18:00 Last Admin: 11/12/18 19:53 Dose: 1 cap Metoprolol Tartrate (Lopressor) 50 mg PO BID [facility] Last Admin: 11/12/18 22:22 Dose: 50 mg Mirtazapine (Remeron) 15 mg PO HS [facility] Last Admin: 11/12/18 22:23 Dose: 15 mg Nortriptyline HCl (Pamelor) 50 mg PO HS [facility] Last Admin: 11/12/18 22:23 Dose: 50 mg Pramipexole Dihydrochloride (Mirapex) 0.5 mg PO DAILY [facility] Last Admin: 11/12/18 10:33 Dose: 0.5 mg Tiotropium [place] (Spiriva) 18 mcg INH RQ24 [facility] Last Admin: 11/12/18 09:27 Dose: 18 mcg - Labs Labs: 11/12/18 06:46 11/12/18 06:46 Attending/Attestation - Attestation I have personally seen and examined this patient.: Yes I have fully participated in the care of the patient.: Yes I have reviewed all pertinent clinical information, including history, physical exam and plan: Yes Notes (Text): 11/12/18 22:27 This is a late entry. Care of this patient was gone over in detail with resident Dr. Toan Daly. Giancarlo Hernandez D.O.
[2018-11-10] MEDS ORDERED: Potassium Chloride 20 mEq ER Tab PO ONE (14:00)
--- NOTE | 2018-11-10 14:02 | CP.PCM.CON ---
History of Present Illness - History of Present Illness History of Present Illness: 77 year old female with PMHx of Ulcerative Colitis, Nephrolithiasis, Herpes Zoster, Parkinson's and history of DVT with recent admission for CDiff, presents to the ED with increasing cough and SOB PMHx: Ulcerative Colitis, Nephrolithiasis, Herpes Zoster, Parkinson's and history of DVT , CDiff, PSHx: EGD, Colonoscopy, tubal ligation All: NKDA SHx: former 1/2ppd; social EtOH; denies drug use FHx: Noncontributory Review of Systems - Review of Systems All systems: reviewed and no additional remarkable complaints except - Constitutional Constitutional: As Per HPI, Chills, Excessive Sweating, Fever, Lethargy, Malaise - EENT Eyes: absent: As Per HPI, Blind Spots, Blurred Vision, Change in Vision, Decreased Night Vision, Diplopia, Discharge, Dry Eye, Exophthalmos, Floaters, Irritation, Itchy Eyes, Loss of Peripheral Vision, Pain, Photophobia, Requires Corrective Lenses, Sees Flashes, Spots in Vision, Tunnel Vision, Other Visual Disturbances, Loss of Vision, Other Ears: absent: As Per HPI, Decreased Hearing, Ear Discharge, Ear Pain, Tinnitus, Abnormal Hearing, Disequilibrium, Dizziness, Other Nose/Mouth/Throat: absent: As Per HPI, Epistaxis, Nasal Congestion, Nasal Discharge, Nasal Obstruction, Nasal Trauma, Nose Pain, Post Nasal Drip, Sinus Pain, Sinus Pressure, Bleeding Gums, Change in Voice, Dental Pain, Dry Mouth, Dysphagia, Halitosis, Hoarsness, Lip Swelling, Mouth Lesions, Mouth Pain, Odynophagia, Sore Throat, Throat Swelling, Tongue Swelling, Facial Pain, Neck Pain, Neck Mass, Other - Breasts Breasts: absent: As Per HPI, Change in Shape, Mass, Pain, Nipple Discharge, Nipple Inversion, Skin Changes, Swelling, Other - Cardiovascular Cardiovascular: absent: As Per HPI, Acrocyanosis, Chest Pain, Chest Pain at Rest, Chest Pain with Activity, Claudication, Diaphoresis, Dyspnea, Dyspnea on Exertion, Edema, Irregular Heart Rhythm, Pain Radiating to Arm/Neck/Jaw, Leg Edema, Leg Ulcers, Lightheadedness, Orthopnea, Palpitations, Paroxysmal Nocturnal Dyspnea, Pedal Edema, Radiating Pain, Rapid Heart Rate, Slow Heart Rate, Syncope, Other - Respiratory Respiratory: As Per HPI, Cough, Dyspnea, Dyspnea on Exertion, Excessive Mucous Production. absent: Hemoptysis - Gastrointestinal Gastrointestinal: As Per HPI - Genitourinary Genitourinary: absent: As Per HPI, Change in Urinary Stream, Difficulty Urinating, Dysuria, Flank Pain, Hematuria, Pyuria, Nocturia, Urinary Incontinence, Urinary Frequency, Urinary Hesitance, Urinary Urgency, Voiding Freq/Small Amts, Freq UTI, Hx Renal/Bladder Calculi, Hx /Renal Surgery, Bladder Distension, Other - Reproductive: Female Reproductive:Female: absent: As Per HPI, Amenorrhea, Amenorrhea/ Control, Currently Menstual, Cycle <21 Days, Cycle >35 Days, Cycle Variable, Menses 1-7 Days, Menses >/= 8 Days, Menses Variable, Cycle > 4 Weeks Between, No Menses for 6 Months, Heavy Menses, Light Menses, Normal Menses, Spotting Between Cycles, S/P Hysterectomy, Menopausal, Post Menopausal, Premenarche, Abnormal Vaginal Bleeding, Dysmenorrhea, Dyspareunia, Genital Lesions, Genital Pruritis, Pelvic Pain, Prolapse Symptoms, Sexual Dysfunction, Vaginal Discharge, Vaginal Dryness, Vaginal Odor, Vaginal Pruritis, Other - Menstruation Menstruation: absent: As Per HPI, Amenorrhea, Amenorrhea/ Control, Currently Menstual, Cycle <21 Days, Cycle >35 Days, Cycle Variable, Menses 1-7 Days, Menses >/= 8 Days, Menses Variable, Cycle > 4 Weeks Between, No Menses for 6 Months, Heavy Menses, Light Menses, Normal Menses, Spotting Between Cycles, S/P Hysterectomy, Menopausal, Post Menopausal, Premenarche, Abnormal Vaginal Bleeding, Dysmenorrhea, Other - Musculoskeletal Musculoskeletal: absent: As Per HPI, Abnormal Gait, Arthralgias, Atrophy, Back Pain, Deformity, Joint Swelling, Limited Range of Motion, Loss of Height, Muscle Cramps, Muscle Weakness, Myalgias, Neck Pain, Numbness, Radiating Pain into Limb, Stiffness, Tingling, Other - Integumentary Integumentary: absent: As Per HPI, Acne, Alopecia, Bleeding Lesions, Change in Hair, Change in Nails, Change in Pigmentation, Changing Lesions, Dry Skin, Erythema, Furuncle, Hirsutism, Lesions, New Lesions, Non-Healing Lesions, Photosensitivity, Pruritus, Rash, Skin Pain, Skin Ulcer, Sores, Striae, Swelling, Unusual Bruising, Wounds, Jaundice, Other - Neurological Neurological: absent: As Per HPI, Abnormal Gait, Abnormal Hearing, Abnormal Movements, Abnormal Speech, Behavioral Changes, Burning Sensations, Confusion, Convulsions, Disequilibrium, Dizziness, Numbness, Focal Weakness, Frequent Falls, Headaches, Lack of Coordination, Loss of Vision, Memory Loss, Paresthesias, Radicular Pain, Restless Legs, Sensory Deficit, Syncope, Tingling, Tremor, Vertigo, Weakness, Other Visual Disturbances, Other - Psychiatric Psychiatric: absent: As Per HPI, Abnormal Sleep Pattern, Anhedonia, Anxiety, Auditory Hallucinations, Behavioral Changes, Change in Appetite, Change in Libido, Confusion, Depression, Difficulty Concentrating, Hallucinations, Homicidal Ideation, Hopelessness, Irritability, Memory Loss, Mood Swings, Panic Attacks, Paranoia, Suicidal Ideation, Visual Hallucinations, Tactile Hallucinations, Other - Endocrine Endocrine: absent: As Per HPI, Change in Body Appearance, Change in Libido, Cold Intolorance, Deepening of Voice, Excessive Sweating, Fatigue, Flushing, Heat Intolorance, Increase in Ring/Shoe/Hat Size, Palpitations, Polydipsia, Polyphagia, Polyuria, Other - Hematologic/Lymphatic Hematologic: absent: As Per HPI, Easy Bleeding, Easy Bruising, Lymphadenopathy, Other Review of Systems - Constitutional Constitutional: As Per HPI - EENT Eyes: absent: As Per HPI, Blind Spots, Blurred Vision, Change in Vision, Decreased Night Vision, Diplopia, Discharge, Dry Eye, Exophthalmos, Floaters, Irritation, Itchy Eyes, Loss of Peripheral Vision, Pain, Photophobia, Requires Corrective Lenses, Sees Flashes, Spots in Vision, Tunnel Vision, Other Visual Disturbances, Loss of Vision, Other Ears: absent: As Per HPI, Decreased Hearing, Ear Discharge, Ear Pain, Tinnitus, Abnormal Hearing, Disequilibrium, Dizziness, Other Nose/Mouth/Throat: absent: As Per HPI, Epistaxis, Nasal Congestion, Nasal Discharge, Nasal Obstruction, Nasal Trauma, Nose Pain, Post Nasal Drip, Sinus Pain, Sinus Pressure, Bleeding Gums, Change in Voice, Dental Pain, Dry Mouth, Dysphagia, Halitosis, Hoarsness, Lip Swelling, Mouth Lesions, Mouth Pain, Odynophagia, Sore Throat, Throat Swelling, Tongue Swelling, Facial Pain, Neck Pain, Neck Mass, Other - Breasts Breasts: absent: As Per HPI, Change in Shape, Mass, Pain, Nipple Discharge, Nipple Inversion, Skin Changes, Swelling, Other - Cardiovascular Cardiovascular: As Per HPI - Respiratory Respiratory: As Per HPI, Cough, Dyspnea - Gastrointestinal Gastrointestinal: As Per HPI - Genitourinary Genitourinary: absent: As Per HPI, Change in Urinary Stream, Difficulty Urinating, Dysuria, Flank Pain, Hematuria, Pyuria, Nocturia, Urinary Incontinence, Urinary Frequency, Urinary Hesitance, Urinary Urgency, Voiding Freq/Small Amts, Freq UTI, Hx Renal/Bladder Calculi, Hx /Renal Surgery, Bladder Distension, Other - Reproductive: Female Reproductive:Female: absent: As Per HPI, Amenorrhea, Amenorrhea/ Control, Currently Menstual, Cycle <21 Days, Cycle >35 Days, Cycle Variable, Menses 1-7 Days, Menses >/= 8 Days, Menses Variable, Cycle > 4 Weeks Between, No Menses for 6 Months, Heavy Menses, Light Menses, Normal Menses, Spotting Between Cycles, S/P Hysterectomy, Menopausal, Post Menopausal, Premenarche, Abnormal Vaginal Bleeding, Dysmenorrhea, Dyspareunia, Genital Lesions, Genital Pruritis, Pelvic Pain, Prolapse Symptoms, Sexual Dysfunction, Vaginal Discharge, Vaginal Dryness, Vaginal Odor, Vaginal Pruritis, Other - Menstruation Menstruation: absent: As Per HPI, Amenorrhea, Amenorrhea/ Control, Currently Menstual, Cycle <21 Days, Cycle >35 Days, Cycle Variable, Menses 1-7 Days, Menses >/= 8 Days, Menses Variable, Cycle > 4 Weeks Between, No Menses for 6 Months, Heavy Menses, Light Menses, Normal Menses, Spotting Between Cycles, S/P Hysterectomy, Menopausal, Post Menopausal, Premenarche, Abnormal Vaginal Ble eding, Dysmenorrhea, Other - Musculoskeletal Musculoskeletal: absent: As Per HPI, Abnormal Gait, Arthralgias, Atrophy, Back Pain, Deformity, Joint Swelling, Limited Range of Motion, Loss of Height, Muscle Cramps, Muscle Weakness, Myalgias, Neck Pain, Numbness, Radiating Pain into Limb, Stiffness, Tingling, Other - Integumentary Integumentary: absent: As Per HPI, Acne, Alopecia, Bleeding Lesions, Change in Hair, Change in Nails, Change in Pigmentation, Changing Lesions, Dry Skin, Erythema, Furuncle, Hirsutism, Lesions, New Lesions, Non-Healing Lesions, Photosensitivity, Pruritus, Rash, Skin Pain, Skin Ulcer, Sores, Striae, Swelling, Unusual Bruising, Wounds, Jaundice, Other - Neurological Neurological: absent: As Per HPI, Abnormal Gait, Abnormal Hearing, Abnormal Movements, Abnormal Speech, Behavioral Changes, Burning Sensations, Confusion, Convulsions, Disequilibrium, Dizziness, Numbness, Focal Weakness, Frequent Falls, Headaches, Lack of Coordination, Loss of Vision, Memory Loss, Paresthesias, Radicular Pain, Restless Legs, Sensory Deficit, Syncope, Tingling, Tremor, Vertigo, Weakness, Other Visual Disturbances, Other - Psychiatric Psychiatric: absent: As Per HPI, Abnormal Sleep Pattern, Anhedonia, Anxiety, Auditory Hallucinations, Behavioral Changes, Change in Appetite, Change in Libido, Confusion, Depression, Difficulty Concentrating, Hallucinations, Homicidal Ideation, Hopelessness, Irritability, Memory Loss, Mood Swings, Panic Attacks, Paranoia, Suicidal Ideation, Visual Hallucinations, Tactile Hallucinations, Other - Hematologic/Lymphatic Hematologic: absent: As Per HPI, Easy Bleeding, Easy Bruising, Lymphadenopathy, Other Past Patient History - Infectious Disease Hx of Infectious Diseases: None - Tetanus Immunizations Tetanus Immunization: Unknown - Past Medical History & Family History Past Medical History?: Yes - Past Social History Smoking Status: Former Smoker Alcohol: Social Drugs: Denies - CARDIAC Hx Cardiac Disorders: Yes Hx Peripheral Vascular Disease: Yes (DVT) - PULMONARY Hx Respiratory Disorders: Yes (USED TO SMOKE CIGARETTES 1/2 PPD.15 YRS AGO.SMOKED SOCIALLY.) Hx Chronic Obstructive Pulmonary Disease (COPD): Yes - NEUROLOGICAL Hx Neurological Disorder: Yes (TREMORS MAINLY TO LEFT HAND. PT ON MEDICATION FOR PARKINSON'S) - HEENT Hx HEENT Problems: No - RENAL Hx Chronic Kidney Disease: No Hx Kidney Stones: Yes (09-25-18 HAS A 2 MM STONE.) - ENDOCRINE/METABOLIC Hx Endocrine Disorders: No - HEMATOLOGICAL/ONCOLOGICAL Hx Human Immunodeficiency Virus (HIV): No - INTEGUMENTARY Hx Dermatological Problems: Yes Other/Comment: 09-25-18 SLIGHT REDDENED RASH TO RIGHT FLANK AREA. HAS PAIN. R/O SHINGLES. - MUSCULOSKELETAL/RHEUMATOLOGICAL Hx Musculoskeletal Disorders: Yes Hx Falls: Yes - GASTROINTESTINAL Hx Crohn's Disease: Yes Hx Diverticulitis: No Hx Gall Bladder Disease: No Hx Gastritis: No Hx Pancreatitis: No - GENITOURINARY/GYNECOLOGICAL Hx Genitourinary Disorders: Yes (Kidney stones last 2013,TUBAL LIGATION. C.S) - PSYCHIATRIC Hx Depression: No Hx Substance Use: No - SURGICAL HISTORY Hx Surgeries: Yes (BILATERAL CATARACT SX, TONSILLECTOMY,C/S,TUBAL LIGATION, KIDNEY STONE.) - ANESTHESIA Hx Anesthesia: No Hx Anesthesia Reactions: No Hx Malignant Hyperthermia: No Meds Allergies/Adverse Reactions: Allergies Allergy/AdvReac Type Severity Reaction Status Date / Time No Known Allergies Allergy Verified 11/08/18 10:09 - Medications Medications: Current Medications Benzonatate (Tessalon Perles) 100 mg PO TID [facility] Last Admin: 11/10/18 13:30 Dose: 100 mg Ergocalciferol (Drisdol 50,000 Intl Units Cap) 1 cap PO QWK [facility] Last Admin: 11/09/18 10:00 Dose: 1 cap Famotidine (Pepcid) 20 mg PO BID [facility] Last Admin: 11/10/18 09:41 Dose: 20 mg Furosemide (Lasix) 10 mg IVP Q12H [facility] Last Admin: 11/10/18 06:04 Dose: Not Given Heparin Sodium (Porcine) (Heparin) 5,000 units SC Q8 [facility] Last Admin: 11/10/18 13:31 Dose: 5,000 units Lactobacillus Acidophilus (Bacid Acidophilus) 1 cap PO BID [facility] Stop: 12/05/18 18:00 Last Admin: 11/10/18 09:42 Dose: 1 cap Metoprolol Tartrate (Lopressor) 50 mg PO BID [facility] Last Admin: 11/10/18 09:42 Dose: Not Given Mirtazapine (Remeron) 15 mg PO HS [facility] Last Admin: 11/09/18 21:48 Dose: Not Given Nortriptyline HCl (Pamelor) 50 mg PO HS [facility] Last Admin: 11/09/18 21:48 Dose: 50 mg Oseltamivir Phosphate (Tamiflu Cap) 75 mg PO BID [facility]; Protocol Stop: 11/13/18 18:00 Last Admin: 11/10/18 09:41 Dose: 75 mg Potassium Chloride (K-Dur 20 Meq Er Tab) 40 meq PO DAILY [facility] Last Admin: 11/10/18 09:42 Dose: 40 meq Pramipexole Dihydrochloride (Mirapex) 0.5 mg PO DAILY [facility] Last Admin: 11/10/18 09:41 Dose: 0.5 mg Prednisone (Prednisone Tab) 10 mg PO ONCE ONE Stop: 11/11/18 10:01 Tiotropium Mancos (Spiriva) 18 mcg INH RQ24 [facility] Last Admin: 11/10/18 08:00 Dose: 18 mcg Physical Exam - Constitutional Appears: Non-toxic, No Acute Distress, Cachectic, Chronically Ill - Head Exam Head Exam: ATRAUMATIC, NORMAL INSPECTION, NORMOCEPHALIC - Eye Exam Eye Exam: absent: Scleral icterus - ENT Exam ENT Exam: Mucous Membranes Dry, Normal External Ear Exam - Neck Exam Neck exam: Negative for: Lymphadenopathy - Respiratory Exam Respiratory Exam: Decreased Breath Sounds, Rales, Rhonchi - Cardiovascular Exam Cardiovascular Exam: REGULAR RHYTHM, +S1, +S2 - GI/Abdominal Exam GI & Abdominal Exam: Diminished Bowel Sounds, Soft. absent: Tenderness - Rectal Exam Rectal Exam: Deferred - Exam Exam: NORMAL INSPECTION - Extremities Exam Extremities exam: Positive for: pedal pulses present. Negative for: calf tenderness, pedal edema, tenderness - Back Exam Back exam: absent: CVA tenderness (L), CVA tenderness (R), paraspinal tenderness - Neurological Exam Neurological exam: Alert, CN II-XII Intact, Oriented x3, Reflexes Normal - Psychiatric Exam Psychiatric exam: Depressed - Skin Skin Exam: Dry Results - Vital Signs Recent Vital Signs: Last Vital Signs Temp 97.6 F 11/10/18 08:32 Pulse 75 11/10/18 13:46 Resp 18 11/10/18 08:50 BP 105/64 11/10/18 08:32 Pulse Ox 98 11/10/18 11:59 - Labs Result Diagrams: 11/10/18 07:42 11/10/18 07:42 Labs: Laboratory Results - last 24 hr 11/09/18 11/09/18 11/10/18 16:11 21:23 06:25 WBC RBC Hgb Hct MCV MCH MCHC RDW Plt Count MPV Neut % (Auto) Lymph % (Auto) [place] % (Auto) Eos % (Auto) Baso % (Auto) Neut # (Auto) Lymph # (Auto) [place] # (Auto) Eos # (Auto) Baso # (Auto) Sodium Potassium Chloride Carbon Dioxide Anion Gap BUN Creatinine Est GFR ( Amer) Est GFR (Non-Af Amer) POC Glucose (mg/dL) 153 H 237 H 130 H Random Glucose Calcium Phosphorus Magnesium Total Bilirubin AST ALT Alkaline Phosphatase Total Protein Albumin Globulin Albumin/Globulin Ratio 11/10/18 11/10/18 11/10/18 07:42 07:42 11:25 WBC 9.8 RBC 3.22 L Hgb 10.7 L Hct 31.6 L MCV 98.0 MCH 33.3 H MCHC 34.0 RDW 14.0 Plt Count 312 MPV 9.3 Neut % (Auto) 64.3 Lymph % (Auto) 21.3 [place] % (Auto) 10.1 H Eos % (Auto) 2.9 Baso % (Auto) 1.4 Neut # (Auto) 6.3 Lymph # (Auto) 2.1 [place] # (Auto) 1.0 H Eos # (Auto) 0.3 Baso # (Auto) 0.1 Sodium 135 Potassium 3.2 L Chloride 94 L Carbon Dioxide 38 H Anion Gap 7 L BUN 29 H Creatinine 0.6 L Est GFR ( Amer) > 60 Est GFR (Non-Af Amer) > 60 POC Glucose (mg/dL) 125 H Random Glucose 114 H D Calcium 8.2 L Phosphorus 3.4 Magnesium 1.9 Total Bilirubin 0.5 AST 12 L D ALT 22 Alkaline Phosphatase 104 Total Protein 5.7 L Albumin 2.8 L Globulin 2.9 Albumin/Globulin Ratio 1.0 Assessment & Plan (1) Dyspnea Status: Acute (2) Hypoxia Status: Acute (3) COPD (chronic obstructive pulmonary disease) Status: Acute (4) Diarrhea Status: Acute Priority: High (5) Ulcerative colitis Status: Acute - Assessment and Plan (Free Text) Assessment: likely acute exac COPD/CHF cultures so far negative overall ppoor prognosis
--- NOTE | 2018-11-11 07:08 | CP.PCM.PN ---
<Everette Daly - Last Filed: 11/11/18 16:02> Subjective - Date & Time of Evaluation Date of Evaluation: 11/11/18 Time of Evaluation: 08:00 - Subjective Subjective: PGY-[address] Giancarlo Hernandez Patient is seen and examined at bedside. Patient had no acute events overnight. Patient has no complaints at this time. denies shortness of breath or chest pain/palpitations. Patient continues wearing nasal conula with high flow O2 at 60%. Patients voice is faint, patient believes is because of oxygen making oral passages dry. Patient states she was able to eat mash potatoes, and continues to drink nutritional supplements. patient had a bowel movement earlier. Patient denies fever, chills, chest pain, sob, n/v/d/c, leg pain, swelling or urinary symptoms. Objective - Vital Signs/Intake and Output Vital Signs (last 24 hours): Temp Pulse Resp BP Pulse Ox 98.4 F 63 20 117/59 L 98 11/10/18 23:45 11/11/18 03:41 11/10/18 23:45 11/10/18 23:45 11/10/18 23:45 - Medications Medications: Current Medications Benzonatate (Tessalon Perles) 100 mg PO TID [facility] Last Admin: 11/10/18 18:30 Dose: 100 mg Ergocalciferol (Drisdol 50,000 Intl Units Cap) 1 cap PO QWK [facility] Last Admin: 11/09/18 10:00 Dose: 1 cap Famotidine (Pepcid) 20 mg PO BID [facility] Last Admin: 11/10/18 18:29 Dose: 20 mg Furosemide (Lasix) 10 mg IVP Q12H [facility] Last Admin: 11/10/18 18:29 Dose: 10 mg Heparin Sodium (Porcine) (Heparin) 5,000 units SC Q8 [facility] Last Admin: 11/10/18 22:09 Dose: 5,000 units Lactobacillus Acidophilus (Bacid Acidophilus) 1 cap PO BID [facility] Stop: 12/05/18 18:00 Last Admin: 11/10/18 18:28 Dose: 1 cap Metoprolol Tartrate (Lopressor) 50 mg PO BID [facility] Last Admin: 11/10/18 22:09 Dose: 50 mg Mirtazapine (Remeron) 15 mg PO HS [facility] Last Admin: 12/30/18 22:10 Dose: 15 mg Nortriptyline HCl (Pamelor) 50 mg PO HS [facility] Last Admin: 11/10/18 22:33 Dose: 50 mg Oseltamivir Phosphate (Tamiflu Cap) 75 mg PO BID [facility]; Protocol Stop: 11/13/18 18:00 Last Admin: 11/10/18 18:30 Dose: 75 mg Pramipexole Dihydrochloride (Mirapex) 0.5 mg PO DAILY [facility] Last Admin: 11/10/18 09:41 Dose: 0.5 mg Prednisone (Prednisone Tab) 10 mg PO ONCE ONE Stop: 11/11/18 10:01 Tiotropium [place] (Spiriva) 18 mcg INH RQ24 [facility] Last Admin: 11/10/18 08:00 Dose: 18 mcg - Labs Labs: 11/10/18 07:42 11/10/18 07:42 - Constitutional Appears: Non-toxic, No Acute Distress, Chronically Ill - Head Exam Head Exam: ATRAUMATIC, NORMAL INSPECTION, NORMOCEPHALIC - Eye Exam Eye Exam: EOMI, Normal appearance - ENT Exam ENT Exam: Mucous Membranes Moist, Normal Exam - Respiratory Exam Respiratory Exam: Decreased Breath Sounds, NORMAL BREATHING PATTERN. absent: Rhonchi, Wheezes, Respiratory Distress Additional comments: lower lobes b/l, mostly noted on right lung - Cardiovascular Exam Cardiovascular Exam: REGULAR RHYTHM, +S1, +S2 - GI/Abdominal Exam GI & Abdominal Exam: Soft, Normal Bowel Sounds. absent: Distended, Tenderness - Extremities Exam Extremities Exam: Full ROM, Normal Inspection. absent: Joint Swelling, Pedal Edema, Tenderness - Back Exam Back Exam: NORMAL INSPECTION - Neurological Exam Neurological Exam: Alert, Awake, Oriented x3 Neuro motor strength exam: Left Upper Extremity: 5, Right Upper Extremity: 5, Left Lower Extremity: 5, Right Lower Extremity: 5 - Psychiatric Exam Psychiatric exam: Normal Affect, Normal Mood - Skin Skin Exam: Dry, Intact, Normal Color, Warm Assessment and Plan - Assessment and Plan (Free Text) Plan: Pulmonary Edema/congestion - ? possible diastolic HF exarcerbation vs pulmonary HTN - CXR (11/08): developing multifocal pneumonia vs. pulm edema superimposed on severe pulm venous congestion - repeat CXR: Little interval change in multifocal pneumonia versis pulmonary ed kinza, superimposed on severe pulmonary venous congestion. - VBG shows CO2 retention - BNP 7720, elevated from 795 on 04/20/18 - UA neg, Influenza A, B neg - given IVF in ED, suspect fluid overload - given Lasix 20mg IVP, f/u CXR at 1pm christina. if improved, will confirm fluid overload. If not improved, will start antibiotics - not starting antibiotics at this point due to extensive antibiotics given last admission and suspicion against newly developing pneumonia. - extensively treated with Primaxin and metronidazole as noted below - Dr Summers - ID consult for eval to r/o PNA- f/u recs - likely acute exac COPD/CHF - cultures so far negative - overall poor prognosis - DR Rodas - Cardiology consult - evaluation for HF exarcerb - help is appreciated - echo last admission significant for pulmonary HTN. - stress test is negative for myocardial ischemia - Dr Avery Urbano - Pulmonology consult - Pulm HTN, rx recommendations - help is appreciated - Tamiflu 75mg po bid prophylaxis for fever - F/U blood culture - vitals within normal limits today - Metoprolol 50mg po bid - Lasix 10mg IVP Q12H - maintain HOB at 45 degress - strict I&Os - daily weights COPD - Tessalon Pearles 100mg po tid - Spiriva 18mcg INH daily - Continue O2 high flow Parkinson's - Mirapex 0.5mg po daily Depression - Mirtazapine 15mg po hs - Nortriptyline 50mg po hs VitD deficiency - Ergocalciferol 1 cap po qwk Hx C.diff colitis - patient reports diarrhea, but on further questioning admits episodic loose stool - last normal BM was on Sun at discharge - non bloody stool at this time, will continue to monitor - C. diff toxin A and B - f/u Hypokalemia - follow up am labs - replete as needed PPx - DVT: Heparin 5000u sc q8, SCDs - GI: home Pepcid 20mg po bid, Bacid - Diet: HHD, Ensure Enlive 3 bottles, [place] - PT/OT - recommending [facility] - nursing communication for patient to be educated to call for bedpan when going and for patient to be changed if wet, with the purpose to prevent urinary infections. - SW: planning for d/c with PT recs to [facility] most likely 11/13/2018 DISPO: Spoke with Son Alexandr at bedside this morning. Patient's son was informed that his mother is stable, with oxygen and lasix, infectious disease specialist and us we do not think it is PNA, and that we think it could be CHF exarcerbation. Will follow up Dr Clark goldman. Patient's son was able to ask questions regarding her mother and agrees with [facility] to continue treatment. Patient son was told that PT will come see her and we will wait on their recommendations, and we will follow up with SW for placement, and placement most likely will occur on sunday11/13/18. We will continue to follow up with Patient's son and family on updates as we move forward with patient's possible d/c to rehab for continuing treatment and PT. Plan discussed with Dr Giancarlo Daly, PGY-1 <Giancarlo Hernandez J - Last Filed: 11/12/18 22:25> Objective - Vital Signs/Intake and Output Vital Signs (last 24 hours): Temp Pulse Resp BP Pulse Ox 99 F 72 20 104/70 99 11/12/18 15:00 11/12/18 15:00 11/12/18 15:00 11/12/18 19:53 11/12/18 15:00 - Medications Medications: Current Medications Benzonatate (Tessalon Perles) 100 mg PO TID [facility] Last Admin: 11/12/18 19:55 Dose: 100 mg Ergocalciferol (Drisdol 50,000 Intl Units Cap) 1 cap PO QWK [facility] Last Admin: 11/09/18 10:00 Dose: 1 cap Famotidine (Pepcid) 20 mg PO BID [facility] Last Admin: 11/12/18 19:54 Dose: 20 mg Furosemide (Lasix) 10 mg IVP Q12H [facility] Last Admin: 11/12/18 19:53 Dose: 10 mg Lactobacillus Acidophilus (Bacid Acidophilus) 1 cap PO BID [facility] Stop: 12/05/18 18:00 Last Admin: 11/12/18 19:53 Dose: 1 cap Metoprolol Tartrate (Lopressor) 50 mg PO BID [facility] Last Admin: 11/12/18 22:22 Dose: 50 mg Mirtazapine (Remeron) 15 mg PO HS [facility] Last Admin: 01/01/19 22:23 Dose: 15 mg Nortriptyline HCl (Pamelor) 50 mg PO HS [facility] Last Admin: 11/12/18 22:23 Dose: 50 mg Pramipexole Dihydrochloride (Mirapex) 0.5 mg PO DAILY [facility] Last Admin: 11/12/18 10:33 Dose: 0.5 mg Tiotropium [place] (Spiriva) 18 mcg INH RQ24 [facility] Last Admin: 11/12/18 09:27 Dose: 18 mcg - Labs Labs: 11/12/18 06:46 11/12/18 06:46 Attending/Attestation - Attestation I have personally seen and examined this patient.: Yes I have fully participated in the care of the patient.: Yes I have reviewed all pertinent clinical information, including history, physical exam and plan: Yes Notes (Text): 11/12/18 22:25 This is a late entry. Care of this patient was gone over in detail with resident Dr. Toan Daly. Giancarlo Hernandez D.O.
--- NOTE | 2018-11-11 08:22 | CARD ---
APPROVED REPORT Date of service: 11/08/2018 EKG Measurement Heart [id number] <Conclusion> Normal sinus rhythm Possible Left atrial enlargement Nonspecific T wave abnormality Abnormal ECG
[2018-11-11] MEDS: Lactobacillus Acidophilus 500 MU Cap PO SCH ×2 (09:32→18:51)
[2018-11-11] MEDS: Tiotropium 18 mcg Cap For Inhalation INH SCH (09:38)
--- NOTE | 2018-11-11 10:51 | CP.PCM.CON ---
History of Present Illness - History of Present Illness History of Present Illness: I was asked to see patient by Dr Stephani Hernandez Patient was seen 11/11/18 1000 Patient is a 77 year old female with HTN pulmonary HTN who presents with weakness, cough, and dyspnea. Patient was recently admitted to the hosptial with cough and dsypnea. She was found to have multilobar pneumonia. She also had cardiac evaluation with echocardiogram and stress test. The echocardiogram revealed normal left ventricular function and moderate pulmonary HTN. The stress test was negative for myocardial ischemia. Review of Systems - Constitutional Constitutional: Fatigue, Weakness - EENT Eyes: absent: As Per HPI, Blind Spots, Blurred Vision, Change in Vision, Decreased Night Vision, Diplopia, Discharge, Dry Eye, Exophthalmos, Floaters, Irritation, Itchy Eyes, Loss of Peripheral Vision, Pain, Photophobia, Requires Corrective Lenses, Sees Flashes, Spots in Vision, Tunnel Vision, Other Visual Disturbances, Loss of Vision, Other Ears: absent: As Per HPI, Decreased Hearing, Ear Discharge, Ear Pain, Tinnitus, Abnormal Hearing, Disequilibrium, Dizziness, Other Nose/Mouth/Throat: absent: As Per HPI, Epistaxis, Nasal Congestion, Nasal Discharge, Nasal Obstruction, Nasal Trauma, Nose Pain, Post Nasal Drip, Sinus Pain, Sinus Pressure, Bleeding Gums, Change in Voice, Dental Pain, Dry Mouth, Dysphagia, Halitosis, Hoarsness, Lip Swelling, Mouth Lesions, Mouth Pain, Odynophagia, Sore Throat, Throat Swelling, Tongue Swelling, Facial Pain, Neck Pain, Neck Mass, Other - Breasts Breasts: absent: As Per HPI, Change in Shape, Mass, Pain, Nipple Discharge, Nipple Inversion, Skin Changes, Swelling, Other - Cardiovascular Cardiovascular: absent: As Per HPI, Acrocyanosis, Chest Pain, Chest Pain at Rest, Chest Pain with Activity, Claudication, Diaphoresis, Dyspnea, Dyspnea on Exertion, Edema, Irregular Heart Rhythm, Pain Radiating to Arm/Neck/Jaw, Leg Edema, Leg Ulcers, Lightheadedness, Orthopnea, Palpitations, Paroxysmal Nocturnal Dyspnea, Pedal Edema, Radiating Pain, Rapid Heart Rate, Slow Heart Rate, Syncope, Other - Respiratory Respiratory: Cough, Dyspnea, Excessive Mucous Production - Gastrointestinal Gastrointestinal: absent: As Per HPI, Abdominal Pain, Belching, Bloating, Change in Bowel Habits, Change in Stool Character, Coffee Ground Emesis, Constipation, Cramping, Diarrhea, Dyspepsia, Dysphagia, Early Satiety, Excessive Flatus, Fecal Incontinence, Heartburn, Hematemesis, Hematochezia, Loose Stools, Melena, N ausea, Odynophagia, Temesmus, Vomiting, Other - Genitourinary Genitourinary: absent: As Per HPI, Change in Urinary Stream, Difficulty Urinating, Dysuria, Flank Pain, Hematuria, Pyuria, Nocturia, Urinary Incontinence, Urinary Frequency, Urinary Hesitance, Urinary Urgency, Voiding Freq/Small Amts, Freq UTI, Hx Renal/Bladder Calculi, Hx /Renal Surgery, Bladder Distension, Other - Musculoskeletal Musculoskeletal: absent: As Per HPI, Abnormal Gait, Arthralgias, Atrophy, Back Pain, Deformity, Joint Swelling, Limited Range of Motion, Loss of Height, Muscle Cramps, Muscle Weakness, Myalgias, Neck Pain, Numbness, Radiating Pain into Limb, Stiffness, Tingling, Other - Integumentary Integumentary: absent: As Per HPI, Acne, Alopecia, Bleeding Lesions, Change in Hair, Change in Nails, Change in Pigmentation, Changing Lesions, Dry Skin, Erythema, Furuncle, Hirsutism, Lesions, New Lesions, Non-Healing Lesions, Photosensitivity, Pruritus, Rash, Skin Pain, Skin Ulcer, Sores, Striae, Swelling, Unusual Bruising, Wounds, Jaundice, Other - Neurological Neurological: absent: As Per HPI, Abnormal Gait, Abnormal Hearing, Abnormal Movements, Abnormal Speech, Behavioral Changes, Burning Sensations, Confusion, Convulsions, Disequilibrium, Dizziness, Numbness, Focal Weakness, Frequent Falls, Headaches, Lack of Coordination, Loss of Vision, Memory Loss, Paresthesias, Radicular Pain, Restless Legs, Sensory Deficit, Syncope, Tingling, Tremor, Vertigo, Weakness, Other Visual Disturbances, Other - Psychiatric Psychiatric: absent: As Per HPI, Abnormal Sleep Pattern, Anhedonia, Anxiety, Auditory Hallucinations, Behavioral Changes, Change in Appetite, Change in Libido, Confusion, Depression, Difficulty Concentrating, Hallucinations, Homicidal Ideation, Hopelessness, Irritability, Memory Loss, Mood Swings, Panic Attacks, Paranoia, Suicidal Ideation, Visual Hallucinations, Tactile Hallucinations, Other - Endocrine Endocrine: absent: As Per HPI, Change in Body Appearance, Change in Libido, Cold Intolorance, Deepening of Voice, Excessive Sweating, Fatigue, Flushing, Heat Intolorance, Increase in Ring/Shoe/Hat Size, Palpitations, Polydipsia, Polyphagia, Polyuria, Other - Hematologic/Lymphatic Hematologic: absent: As Per HPI, Easy Bleeding, Easy Bruising, Lymphadenopathy, Other Past Patient History - Infectious Disease Hx of Infectious Diseases: None - Tetanus Immunizations Tetanus Immunization: Unknown - Past Medical History & Family History Past Medical History?: Yes - Past Social History Smoking Status: Former Smoker Alcohol: Social Drugs: Denies - CARDIAC Hx Cardiac Disorders: Yes - PULMONARY Hx Chronic Obstructive Pulmonary Disease (COPD): Yes - NEUROLOGICAL Hx Neurological Disorder: Yes (TREMORS MAINLY TO LEFT HAND. PT ON MEDICATION FOR PARKINSON'S) - HEENT Hx HEENT Problems: No - RENAL Hx Chronic Kidney Disease: No Hx Kidney Stones: Yes (09-25-18 HAS A 2 MM STONE.) - ENDOCRINE/METABOLIC Hx Endocrine Disorders: No - HEMATOLOGICAL/ONCOLOGICAL Hx Human Immunodeficiency Virus (HIV): No - INTEGUMENTARY Hx Dermatological Problems: Yes Other/Comment: 09-25-18 SLIGHT REDDENED RASH TO RIGHT FLANK AREA. HAS PAIN. R/O SHINGLES. - MUSCULOSKELETAL/RHEUMATOLOGICAL Hx Musculoskeletal Disorders: Yes Hx Falls: Yes - GASTROINTESTINAL Hx Crohn's Disease: Yes Hx Diverticulitis: No Hx Gall Bladder Disease: No Hx Gastritis: No Hx Pancreatitis: No - GENITOURINARY/GYNECOLOGICAL Hx Genitourinary Disorders: Yes (Kidney stones last 2013,TUBAL LIGATION. C.S) - PSYCHIATRIC Hx Depression: No Hx Substance Use: No - SURGICAL HISTORY Hx Surgeries: Yes (BILATERAL CATARACT SX, TONSILLECTOMY,C/S,TUBAL LIGATION, KIDNEY STONE.) - ANESTHESIA Hx Anesthesia: No Hx Anesthesia Reactions: No Hx Malignant Hyperthermia: No Meds Allergies/Adverse Reactions: Allergies Allergy/AdvReac Type Severity Reaction Status Date / Time No Known Allergies Allergy Verified 11/08/18 10:09 - Medications Medications: Current Medications Benzonatate (Tessalon Perles) 100 mg PO TID [facility] Last Admin: 11/11/18 09:32 Dose: 100 mg Ergocalciferol (Drisdol 50,000 Intl Units Cap) 1 cap PO QWK [facility] Last Admin: 11/09/18 10:00 Dose: 1 cap Famotidine (Pepcid) 20 mg PO BID [facility] Last Admin: 11/11/18 09:32 Dose: 20 mg Furosemide (Lasix) 10 mg IVP Q12H [facility] Last Admin: 11/10/18 18:29 Dose: 10 mg Heparin Sodium (Porcine) (Heparin) 5,000 units SC Q8 [facility] Last Admin: 11/10/18 22:09 Dose: 5,000 units Lactobacillus Acidophilus (Bacid Acidophilus) 1 cap PO BID [facility] Stop: 12/05/18 18:00 Last Admin: 11/11/18 09:32 Dose: 1 cap Metoprolol Tartrate (Lopressor) 50 mg PO BID [facility] Last Admin: 11/11/18 09:32 Dose: Not Given Mirtazapine (Remeron) 15 mg PO HS [facility] Last Admin: 11/10/18 22:10 Dose: 15 mg Nortriptyline HCl (Pamelor) 50 mg PO HS [facility] Last Admin: 11/10/18 22:33 Dose: 50 mg Oseltamivir Phosphate (Tamiflu Cap) 75 mg PO BID [facility]; Protocol Stop: 11/13/18 18:00 Last Admin: 11/11/18 09:32 Dose: 75 mg Pramipexole Dihydrochloride (Mirapex) 0.5 mg PO DAILY [facility] Last Admin: 11/11/18 09:31 Dose: 0.5 mg Tiotropium [place] (Spiriva) 18 mcg INH RQ24 [facility] Last Admin: 11/10/18 08:00 Dose: 18 mcg Physical Exam - Constitutional Appears: Non-toxic - Head Exam Head Exam: NORMAL INSPECTION - Eye Exam Eye Exam: Normal appearance - ENT Exam ENT Exam: Mucous Membranes Moist, Normal Exam - Neck Exam Neck exam: Positive for: Normal Inspection - Respiratory Exam Respiratory Exam: Decreased Breath Sounds. absent: Rhonchi, Wheezes, Respiratory Distress - Cardiovascular Exam Cardiovascular Exam: REGULAR RHYTHM - GI/Abdominal Exam GI & Abdominal Exam: Normal Bowel Sounds - Rectal Exam Rectal Exam: Deferred - Extremities Exam Extremities exam: Positive for: normal inspection, pedal pulses present. Ne gative for: pedal edema - Back Exam Back exam: NORMAL INSPECTION - Neurological Exam Neurological exam: Alert, Oriented x3 - Psychiatric Exam Psychiatric exam: Normal Affect - Skin Skin Exam: Normal Color Results - Vital Signs Recent Vital Signs: Last Vital Signs Temp 97.7 F 11/11/18 07:00 Pulse 65 11/11/18 09:32 Resp 20 11/11/18 07:00 BP 108/64 11/11/18 09:32 Pulse Ox 100 11/11/18 07:00 - Labs Result Diagrams: 11/10/18 07:42 11/10/18 07:42 Labs: Laboratory Results - last 24 hr 11/10/18 11/10/18 11/10/18 11:25 17:01 21:09 POC Glucose (mg/dL) 125 H 177 H 185 H 11/11/18 06:22 POC Glucose (mg/dL) 92 - EKG Data EKG Interpreted by: Myself EKG shows normal: Sinus rhythm Assessment & Plan (1) HTN (hypertension) Assessment and Plan: blood pressure is controlled. Status: Acute (2) Dyspnea Assessment and Plan: continue current therapy. echo last admission is nromal left ventricular function and moderate pulmonary hypertension. will need pulmonary follow up. stress test negative for myocardial ischemia Status: Acute (3) Pulmonary hypertension Assessment and Plan: pulmonary follow up Status: Acute
--- NOTE | 2018-11-11 15:20 | CP.PCM.PN ---
Subjective - Date & Time of Evaluation Date of Evaluation: 11/11/18 Time of Evaluation: 05:00 - Subjective Subjective: afeb denies chest pain alert less confused NAD Objective - Vital Signs/Intake and Output Vital Signs (last 24 hours): Temp Pulse Resp BP Pulse Ox 97.7 F 65 20 108/64 100 11/11/18 07:00 11/11/18 09:32 11/11/18 07:00 11/11/18 09:32 11/11/18 07:00 - Medications Medications: Current Medications Benzonatate (Tessalon Perles) 100 mg PO TID [facility] Last Admin: 11/11/18 13:34 Dose: 100 mg Ergocalciferol (Drisdol 50,000 Intl Units Cap) 1 cap PO QWK [facility] Last Admin: 11/09/18 10:00 Dose: 1 cap Famotidine (Pepcid) 20 mg PO BID [facility] Last Admin: 11/11/18 09:32 Dose: 20 mg Furosemide (Lasix) 10 mg IVP Q12H [facility] Last Admin: 11/10/18 18:29 Dose: 10 mg Heparin Sodium (Porcine) (Heparin) 5,000 units SC Q8 [facility] Last Admin: 11/11/18 13:34 Dose: 5,000 units Lactobacillus Acidophilus (Bacid Acidophilus) 1 cap PO BID [facility] Stop: 12/05/18 18:00 Last Admin: 11/11/18 09:32 Dose: 1 cap Metoprolol Tartrate (Lopressor) 50 mg PO BID [facility] Last Admin: 11/11/18 09:32 Dose: Not Given Mirtazapine (Remeron) 15 mg PO HS [facility] Last Admin: 11/10/18 22:10 Dose: 15 mg Nortriptyline HCl (Pamelor) 50 mg PO HS [facility] Last Admin: 11/10/18 22:33 Dose: 50 mg Pramipexole Dihydrochloride (Mirapex) 0.5 mg PO DAILY [facility] Last Admin: 11/11/18 09:31 Dose: 0.5 mg Tiotropium [place] (Spiriva) 18 mcg INH RQ24 [facility] Last Admin: 11/10/18 08:00 Dose: 18 mcg - Labs Labs: 11/10/18 07:42 11/10/18 07:42 - Constitutional Appears: Non-toxic, Chronically Ill - Head Exam Head Exam: NORMOCEPHALIC - Eye Exam Eye Exam: absent: Scleral icterus - ENT Exam ENT Exam: Mucous Membranes Dry - Neck Exam Neck Exam: absent: Lymphadenopathy - Respiratory Exam Respiratory Exam: Decreased Breath Sounds, Prolonged Expiratory Phase, Rales - Cardiovascular Exam Cardiovascular Exam: REGULAR RHYTHM - GI/Abdominal Exam GI & Abdominal Exam: Distended - Rectal Exam Rectal Exam: Deferred - Exam Exam: NORMAL INSPECTION - Extremities Exam Extremities Exam: absent: Pedal Edema - Back Exam Back Exam: absent: CVA tenderness (L), CVA tenderness (R) - Neurological Exam Neurological Exam: Alert, Awake, CN II-XII Intact Assessment and Plan (1) Dyspnea Status: Acute (2) Hypoxia Status: Acute (3) COPD (chronic obstructive pulmonary disease) Status: Acute (4) Diarrhea Status: Acute (5) Ulcerative colitis Status: Acute - Assessment and Plan (Free Text) Assessment: cont supoortive care/ gentle diuresis monitor for fever diarrhea or signs of sepsis
[2018-11-11 17:19] LABS: BLOOD UREA NITROGEN 33 mg/dL (7-17); CALCIUM 8.8 mg/dl (8.6-10.4); GFR NON-AFRICAN AMERICAN > 60
[2018-11-12 07:00] LABS: BASO # 0.1 K/uL (0.0-0.2); BASO % 0.7 % (0.0-2.0); EOS # 0.9 K/uL (0.0-0.7); EOS % 9.8 % (0.0-4.0); HEMOGLOBIN 12.2 g/dL (11.0-16.0); LYMPH % 34.2 % (20.0-40.0); MEAN CELL VOLUME 97.4 fL (81.0-99.0); MEAN CORPUSCULAR HGB CONC 33.9 g/dL (33.0-37.0); MONO # 1.2 K/uL (0.0-0.8); NEUT # 3.7 K/uL (1.8-7.0); NEUT % 42.3 % (50.0-75.0); RBC 3.71 Mil/uL (3.80-5.20); RED CELL DISTRIBUTION WIDTH 13.9 % (11.5-14.5); WHITE BLOOD COUNT 8.9 K/uL (4.8-10.8)
[2018-11-12 07:34] LABS: ALBUMIN 3.4 g/dL (3.5-5.0); ALT/SGPT 32 U/L (9-52); AST/SGOT 24 U/L (14-36); BLOOD UREA NITROGEN 34 mg/dL (7-17); GFR NON-AFRICAN AMERICAN > 60
[2018-11-12] MEDS: Tiotropium 18 mcg Cap For Inhalation INH SCH (09:27)
[2018-11-12] MEDS: Lactobacillus Acidophilus 500 MU Cap PO SCH ×2 (10:34→19:53)
--- NOTE | 2018-11-12 12:24 | CP.PCM.PN ---
<Everette Daly - Last Filed: 11/12/18 22:59> Subjective - Date & Time of Evaluation Date of Evaluation: 11/12/18 Time of Evaluation: 13:00 - Subjective Subjective: PGY-[address] Giancarlo Hernandez Patient is seen and examined at bedside. Patient denies any complaints at this time. Patient reports no acute events overnight. Patient continues to use nasal canula with high flow oxygen. Patient is having bowel movements and urinating. Patient denies any fever, chills, chest pain, sob, n/v/d/c, or urinary complaints. Objective - Vital Signs/Intake and Output Vital Signs (last 24 hours): Temp Pulse Resp BP Pulse Ox 98.5 F 75 20 103/60 93 L 11/12/18 07:00 11/12/18 07:00 11/12/18 07:00 11/12/18 07:00 11/12/18 07:00 - Medications Medications: Current Medications Benzonatate (Tessalon Perles) 100 mg PO TID [facility] Last Admin: 11/12/18 10:34 Dose: 100 mg Ergocalciferol (Drisdol 50,000 Intl Units Cap) 1 cap PO QWK [facility] Last Admin: 11/09/18 10:00 Dose: 1 cap Famotidine (Pepcid) 20 mg PO BID [facility] Last Admin: 11/12/18 10:34 Dose: 20 mg Furosemide (Lasix) 10 mg IVP Q12H [facility] Last Admin: 11/12/18 06:49 Dose: 10 mg Lactobacillus Acidophilus (Bacid Acidophilus) 1 cap PO BID [facility] Stop: 12/05/18 18:00 Last Admin: 11/12/18 10:34 Dose: 1 cap Metoprolol Tartrate (Lopressor) 50 mg PO BID [facility] Last Admin: 11/12/18 10:33 Dose: 50 mg Mirtazapine (Remeron) 15 mg PO HS [facility] Last Admin: 11/11/18 22:33 Dose: 15 mg Nortriptyline HCl (Pamelor) 50 mg PO HS [facility] Last Admin: 11/11/18 22:33 Dose: 50 mg Pramipexole Dihydrochloride (Mirapex) 0.5 mg PO DAILY [facility] Last Admin: 11/12/18 10:33 Dose: 0.5 mg Tiotropium [place] (Spiriva) 18 mcg [facility]H RQ24 [facility] Last Admin: 11/12/18 09:27 Dose: 18 mcg - Labs Labs: 11/12/18 06:46 11/12/18 06:46 - Constitutional Appears: Non-toxic, No Acute Distress, Chronically Ill - Head Exam Head Exam: ATRAUMATIC, NORMAL INSPECTION, NORMOCEPHALIC - Eye Exam Eye Exam: EOMI, Normal appearance - ENT Exam ENT Exam: Mucous Membranes Moist, Normal Exam - Neck Exam Neck Exam: Full ROM, Normal Inspection - Respiratory Exam Respiratory Exam: NORMAL BREATHING PATTERN. absent: Rales, Rhonchi, Wheezes - Cardiovascular Exam Cardiovascular Exam: REGULAR RHYTHM, +S1, +S2 - GI/Abdominal Exam GI & Abdominal Exam: Soft, Normal Bowel Sounds - Extremities Exam Extremities Exam: Normal Inspection - Back Exam Back Exam: NORMAL INSPECTION Additional comments: SCDS in place b/l LE - Neurological Exam Neurological Exam: Alert, Awake, CN II-XII Intact, Oriented x3 - Psychiatric Exam Psychiatric exam: Depressed, Flat Affect - Skin Skin Exam: Dry, Intact, Normal Color, Warm Assessment and Plan - Assessment and Plan (Free Text) Plan: Pulmonary Edema/congestion - ? possible diastolic HF exarcerbation vs pulmonary HTN - CXR (11/08): developing multifocal pneumonia vs. pulm edema superimposed on severe pulm venous congestion - repeat CXR: Little interval change in multifocal pneumonia versis pulmonary edema, superimposed on severe pulmonary venous congestion. - BNP 7720, elevated from 795 on 04/20/18 - UA neg, Influenza A, B neg - given IVF in ED, suspect fluid overload - given Lasix 20mg IVP, f/u CXR at 1pm christina. if improved, will confirm fluid overload. If not improved, will start antibiotics - not starting antibiotics at this point due to extensive antibiotics given last admission and suspicion against newly developing pneumonia. - extensively treated with Primaxin and metronidazole as noted below - Dr Summers - ID consult for eval to r/o PNA- f/u recs - likely acute exac COPD/CHF - cultures so far negative - overall poor prognosis - DR Rodas - Cardiology consult - evaluation for HF exarcerb - help is appreciated - echo last admission significant for pulmonary HTN. - stress test is negative for myocardial ischemia - Dr Avery Urbano - Pulmonology consult - Pulm HTN, rx recommendations - help is appreciated - blood culture - no growth after 4 days - vitals within normal limits - Metoprolol 50mg po bid - Lasix 10mg IVP Q12H - maintain HOB at 45 degress - strict I&Os - daily weights COPD - Tessalon Pearles 100mg po tid - Spiriva 18mcg INH daily - Continue O2 high flow Parkinson's - Mirapex 0.5mg po daily Depression - Mirtazapine 15mg po hs - Nortriptyline 50mg po hs VitD deficiency - Ergocalciferol 1 cap po qwk Hx C.diff colitis - no diarrhea at this time - no abx Hypokalemia - follow up am labs - replete as needed PPx - DVT: Heparin 5000u sc q8, SCDs - GI: home Pepcid 20mg po bid, Bacid - Diet: HHD, Ensure Enlive 3 bottles, [place] - PT/OT - recommending [facility] - SW: planning for d/c with PT recs to [facility] most likely 11/13/2018 - telemetry d/c'ed DISPO: will follow with SW for patient's placement to [facility] tomorrow. Continue to update family on d/c plan to [facility]. please arrange for Home O2 with SW for when patient eventually goes home from [facility]. This could be also be arranged at [facility]. Plan discussed with Dr Giancarlo Daly, PGY-1 <Giancarlo Hernandez J - Last Filed: 11/17/18 14:00> Objective - Vital Signs/Intake and Output Vital Signs (last 24 hours): Temp Pulse Resp BP Pulse Ox 98.2 F 62 18 107/64 98 11/15/18 15:08 11/15/18 15:08 11/15/18 15:08 11/15/18 15:08 11/15/18 15:08 - Labs Labs: 11/15/18 07:40 11/15/18 07:40 Attending/Attestation - Attestation I have personally seen and examined this patient.: Yes I have fully participated in the care of the patient.: Yes I have reviewed all pertinent clinical information, including history, physical exam and plan: Yes Notes (Text): 11/17/18 14:00 This is a late entry. Care of this patient was gone over in detail with resident Dr. Daly.
--- NOTE | 2018-11-12 16:27 | CP.PCM.CON ---
History of Present Illness - History of Present Illness History of Present Illness: reason for consultation: pulmonary hypertension 77-year-old female with history of ulcerative colitis, Parkinson's disease, DVT was recently discharged from the hospital and treated multifocal pneumonia readmitted for generalized weakness. Denies fever chills, denies chest pain. Family complains patient has not been eating. echocardiogram consistent with moderate pulmonary hypertension PMH: UC, nephrolithiasis, Shingles, Parkinson's DVT, C-diff, PNA PSxHx: EGD, Colonoscopy, tubal ligation All: NKDA SHx: quit smoking 15yrs ago, former 1/2ppd; social EtOH; denies drug use FHx: Noncontributory DNR/DNI: POLST on file Review of Systems - Review of Systems All systems: reviewed and no additional remarkable complaints except (generalized weakness) Past Patient History - Infectious Disease Hx of Infectious Diseases: None - Tetanus Immunizations Tetanus Immunization: Unknown - Past Medical History & Family History Past Medical History?: Yes - Past Social History Smoking Status: Former Smoker Alcohol: Social Drugs: Denies - CARDIAC Hx Cardiac Disorders: Yes - PULMONARY Hx Chronic Obstructive Pulmonary Disease (COPD): Yes - NEUROLOGICAL Hx Neurological Disorder: Yes (TREMORS MAINLY TO LEFT HAND. PT ON MEDICATION FOR PARKINSON'S) - HEENT Hx HEENT Problems: No - RENAL Hx Chronic Kidney Disease: No Hx Kidney Stones: Yes (09-25-18 HAS A 2 MM STONE.) - ENDOCRINE/METABOLIC Hx Endocrine Disorders: No - HEMATOLOGICAL/ONCOLOGICAL Hx Human Immunodeficiency Virus (HIV): No - INTEGUMENTARY Hx Dermatological Problems: Yes Other/Comment: 09-25-18 SLIGHT REDDENED RASH TO RIGHT FLANK AREA. HAS PAIN. R/O SHINGLES. - MUSCULOSKELETAL/RHEUMATOLOGICAL Hx Musculoskeletal Disorders: Yes Hx Falls: Yes - GASTROINTESTINAL Hx Crohn's Disease: Yes Hx Diverticulitis: No Hx Gall Bladder Disease: No Hx Gastritis: No Hx Pancreatitis: No - GENITOURINARY/GYNECOLOGICAL Hx Genitourinary Disorders: Yes (Kidney stones last 2013,TUBAL LIGATION. C.S) - PSYCHIATRIC Hx Depression: No Hx Substance Use: No - SURGICAL HISTORY Hx Surgeries: Yes (BILATERAL CATARACT SX, TONSILLECTOMY,C/S,TUBAL LIGATION, KIDNEY STONE.) - ANESTHESIA Hx Anesthesia: No Hx Anesthesia Reactions: No Hx Malignant Hyperthermia: No Meds Allergies/Adverse Reactions: Allergies Allergy/AdvReac Type Severity Reaction Status Date / Time No Known Allergies Allergy Verified 11/08/18 10:09 - Medications Medications: Current Medications Benzonatate (Tessalon Perles) 100 mg PO TID [facility] Last Admin: 11/12/18 13:57 Dose: 100 mg Ergocalciferol (Drisdol 50,000 Intl Units Cap) 1 cap PO QWK [facility] Last Admin: 11/09/18 10:00 Dose: 1 cap Famotidine (Pepcid) 20 mg PO BID [facility] Last Admin: 11/12/18 10:34 Dose: 20 mg Furosemide (Lasix) 10 mg IVP Q12H [facility] Last Admin: 11/12/18 06:49 Dose: 10 mg Lactobacillus Acidophilus (Bacid Acidophilus) 1 cap PO BID [facility] Stop: 12/05/18 18:00 Last Admin: 11/12/18 10:34 Dose: 1 cap Metoprolol Tartrate (Lopressor) 50 mg PO BID [facility] Last Admin: 11/12/18 10:33 Dose: 50 mg Mirtazapine (Remeron) 15 mg PO HS [facility] Last Admin: 11/11/18 22:33 Dose: 15 mg Nortriptyline HCl (Pamelor) 50 mg PO HS [facility] Last Admin: 11/11/18 22:33 Dose: 50 mg Pramipexole Dihydrochloride (Mirapex) 0.5 mg PO DAILY [facility] Last Admin: 11/12/18 10:33 Dose: 0.5 mg Tiotropium [place] (Spiriva) 18 mcg INH RQ24 [facility] Last Admin: 11/12/18 09:27 Dose: 18 mcg Results - Vital Signs Recent Vital Signs: Last Vital Signs Temp 98.5 F 11/12/18 07:00 Pulse 68 11/12/18 13:32 Resp 20 11/12/18 14:24 BP 103/60 11/12/18 07:00 Pulse Ox 93 L 11/12/18 07:00 - Labs Result Diagrams: 11/12/18 06:46 11/12/18 06:46 Labs: Laboratory Results - last 24 hr 11/11/18 11/11/18 11/11/18 16:48 16:51 21:41 WBC RBC Hgb Hct MCV MCH MCHC RDW Plt Count MPV Neut % (Auto) Lymph % (Auto) [place] % (Auto) Eos % (Auto) Baso % (Auto) Neut # (Auto) Lymph # (Auto) [place] # (Auto) Eos # (Auto) Baso # (Auto) Sodium 131 L Potassium 4.7 Chloride 88 L Carbon Dioxide 37 H Anion Gap 11 BUN 33 H Creatinine 0.7 Est GFR ( Amer) > 60 Est GFR (Non-Af Amer) > 60 POC Glucose (mg/dL) 140 H 184 H Random Glucose 139 H D Calcium 8.8 Phosphorus Magnesium Total Bilirubin AST ALT Alkaline Phosphatase Total Protein Albumin Globulin Albumin/Globulin Ratio 11/12/18 11/12/18 11/12/18 06:46 06:46 07:00 WBC 8.9 RBC 3.71 L Hgb 12.2 Hct 36.1 MCV 97.4 MCH 33.0 H MCHC 33.9 RDW 13.9 Plt Count 290 MPV 9.0 Neut % (Auto) 42.3 L Lymph % (Auto) 34.2 [place] % (Auto) 13.0 H Eos % (Auto) 9.8 H Baso % (Auto) 0.7 Neut # (Auto) 3.7 Lymph # (Auto) 3.0 [place] # (Auto) 1.2 H Eos # (Auto) 0.9 H Baso # (Auto) 0.1 Sodium 134 Potassium 4.0 Chloride 90 L Carbon Dioxide 37 H Anion Gap 10 BUN 34 H Creatinine 0.7 Est GFR ( Amer) > 60 Est GFR (Non-Af Amer) > 60 POC Glucose (mg/dL) 99 Random Glucose 100 D Calcium 9.0 Phosphorus 4.9 H Magnesium 1.9 Total Bilirubin 0.5 AST 24 ALT 32 Alkaline Phosphatase 123 Total Protein 6.8 Albumin 3.4 L D Globulin 3.3 Albumin/Globulin Ratio 1.0 Assessment & Plan (1) Pulmonary hypertension Assessment and Plan: patient has history of smoking and underlying COPD could not be ruled out Pulmonary function test as outpatient Nebulizer treatment Continue present treatment Consider PPN On high flow oxygen Connective tissue w/u chest x-ray consistent with bilateral infiltrate Patient is high risk for bronchoscopy and lung biopsy Status: Acute (2) Ulcerative colitis Status: Acute
--- NOTE | 2018-11-12 22:09 | CP.PCM.PCO ---
Physician Communication Note - Physician Communication Note Physician Communication Note: Please see above.
[2018-11-13 07:10] LABS: BASO # 0.1 K/uL (0.0-0.2); EOS # 1.5 K/uL (0.0-0.7); EOS % 12.9 % (0.0-4.0); HEMOGLOBIN 13.5 g/dL (11.0-16.0); LYMPH # 2.2 K/uL (1.0-4.3); LYMPH % 18.4 % (20.0-40.0); MEAN CORPUSCULAR HEMOGLOBIN 32.4 pg (27.0-31.0); MEAN CORPUSCULAR HGB CONC 33.1 g/dL (33.0-37.0); MEAN PLATELET VOLUME 9.1 fL (7.2-11.7); MONO # 1.2 K/uL (0.0-0.8); MONO % 10.2 % (0.0-10.0); NEUT # 6.9 K/uL (1.8-7.0); NEUT % 57.5 % (50.0-75.0); RBC 4.17 Mil/uL (3.80-5.20); RED CELL DISTRIBUTION WIDTH 14.3 % (11.5-14.5)
[2018-11-13 08:05] LABS: ALBUMIN 3.8 g/dL (3.5-5.0); ALT/SGPT 51 U/L (9-52); AST/SGOT 48 U/L (14-36); BLOOD UREA NITROGEN 46 mg/dL (7-17); CALCIUM 9.5 mg/dl (8.6-10.4); GFR NON-AFRICAN AMERICAN > 60
[2018-11-13] MEDS: Tiotropium 18 mcg Cap For Inhalation INH SCH (08:58)
[2018-11-13] MEDS: Lactobacillus Acidophilus 500 MU Cap PO SCH ×2 (09:31→18:06)
--- NOTE | 2018-11-13 13:00 | CP.PCM.PCO ---
Physician Communication Note - Physician Communication Note Physician Communication Note: Once patient cleared for d/c, she can be d/c'd with Bipap - 10/5 at 50%
--- NOTE | 2018-11-13 14:04 | CP.PCM.PN ---
Subjective - Date & Time of Evaluation Date of Evaluation: 11/13/18 Time of Evaluation: 14:05 - Subjective Subjective: PGY-[address] Martin Patient seen and examined at bedside. No acute events overnight. Patient is set up for transfer to [place] for rehab. ENT consulted today for hoarseness and high flow O2 was stopped and placed on 3L NC. Patient denies chest pain, headache, nausea, vomiting. Objective - Vital Signs/Intake and Output Vital Signs (last 24 hours): Temp Pulse Resp BP Pulse Ox 97.4 F L 76 18 107/64 95 11/13/18 08:25 11/13/18 08:25 11/13/18 08:25 11/13/18 08:25 11/13/18 08:25 - Medications Medications: Current Medications Benzonatate (Tessalon Perles) 100 mg PO TID [facility] Last Admin: 11/13/18 09:31 Dose: 100 mg Ergocalciferol (Drisdol 50,000 Intl Units Cap) 1 cap PO QWK [facility] Last Admin: 11/09/18 10:00 Dose: 1 cap Famotidine (Pepcid) 20 mg PO BID [facility] Last Admin: 11/13/18 09:31 Dose: 20 mg Furosemide (Lasix) 10 mg IVP Q12H [facility] Last Admin: 11/13/18 06:18 Dose: 10 mg Lactobacillus Acidophilus (Bacid Acidophilus) 1 cap PO BID [facility] Stop: 12/05/18 18:00 Last Admin: 11/13/18 09:31 Dose: 1 cap Metoprolol Tartrate (Lopressor) 50 mg PO BID [facility] Last Admin: 11/13/18 09:31 Dose: 50 mg Mirtazapine (Remeron) 15 mg PO HS [facility] Last Admin: 11/12/18 22:23 Dose: 15 mg Nortriptyline HCl (Pamelor) 50 mg PO HS [facility] Last Admin: 11/12/18 22:23 Dose: 50 mg Pramipexole Dihydrochloride (Mirapex) 0.5 mg PO DAILY [facility] Last Admin: 11/13/18 09:31 Dose: 0.5 mg Tiotropium [place] (Spiriva) 18 mcg INH RQ24 [facility] Last Admin: 11/12/18 09:27 Dose: 18 mcg - Labs Labs: 11/13/18 06:59 11/13/18 06:59 - Constitutional Appears: Non-toxic, No Acute Distress - Head Exam Head Exam: ATRAUMATIC, NORMAL INSPECTION - Eye Exam Eye Exam: EOMI - ENT Exam ENT Exam: Mucous Membranes Moist - Neck Exam Neck Exam: absent: Tenderness - Respiratory Exam Respiratory Exam: Clear to Ausculation Bilateral. absent: Rales, Wheezes - Cardiovascular Exam Cardiovascular Exam: REGULAR RHYTHM, +S1, +S2 - GI/Abdominal Exam GI & Abdominal Exam: Soft, Normal Bowel Sounds. absent: Tenderness - Extremities Exam Extremities Exam: absent: Pedal Edema, Tenderness - Neurological Exam Neurological Exam: Alert, Awake, Oriented x3 - Psychiatric Exam Psychiatric exam: Normal Affect, Normal Mood - Skin Skin Exam: Dry, Intact Assessment and Plan - Assessment and Plan (Free Text) Assessment: Plan: Pulmonary Edema/congestion - ? possible diastolic HF exarcerbation vs pulmonary HTN - CXR (11/08): developing multifocal pneumonia vs. pulm edema superimposed on severe pulm venous congestion - repeat CXR: Little interval change in multifocal pneumonia versis pulmonary edema, superimposed on severe pulmonary venous congestion. - BNP 7720, elevated from 795 on 04/20/18 - UA neg, Influenza A, B neg - given IVF in ED, suspect fluid overload - given Lasix 20mg IVP, f/u CXR at 1pm christina. if improved, will confirm fluid overload. If not improved, will start antibiotics - not starting antibiotics at this point due to extensive antibiotics given last admission and suspicion against newly developing pneumonia. - extensively treated with Primaxin and metronidazole as noted below - Dr Summers - ID consult - likely acute exac COPD/CHF - cultures negative - overall poor prognosis - DR Rodas - Cardiology consult - evaluation for HF exarcerb - help is appreciated - echo last admission significant for pulmonary HTN. - stress test is negative for myocardial ischemia - Dr Avery Urbano - Pulmonology consult - Pulm HTN, rx recommendations - help is appreciated - blood culture - no growth final - vitals within normal limits - Metoprolol 50mg po bid - Lasix 10mg IVP Q12H - maintain HOB at 45 degrees - strict I&Os - daily weights Hoarseness - ENT consulted, Dr. Reyes. F/u recs. - High flow 02 changed to 3L NC - Tessalon Pearles 100mg po tid COPD - Tessalon Pearles 100mg po tid - Spiriva 18mcg INH daily - Continue O2 high flow Parkinson's - Mirapex 0.5mg po daily Depression - Mirtazapine 15mg po hs - Nortriptyline 50mg po hs VitD deficiency - Ergocalciferol 1 cap po qwk Hx C.diff colitis - no diarrhea at this time - no abx Hypokalemia - follow up am labs - replete as needed PPx - DVT: Heparin 5000u sc q8, SCDs - GI: home Pepcid 20mg po bid, Bacid - Diet: HHD, Ensure Enlive 3 bottles, [place] - PT/OT - recommending [facility] - SW: planning for d/c with PT recs to [facility] most likely 11/13/2018 - telemetry d/c'ed DISPO: will follow with SW for patient's placement to [facility] tomorrow pending okay from ENT and pulm. Continue to update family on d/c plan to [facility]. please arrange for Home O2 with SW for when patient eventually goes home from [facility]. This could be also be arranged at [facility]. Plan discussed with Dr. Veronica Lechuga, PGY-1
--- NOTE | 2018-11-13 15:24 | RAD ---
HISTORY: Repeat CXR for congestion/shortness of breath COMPARISON: Chest x-ray performed 11/09/18 TECHNIQUE: Chest, one view. FINDINGS: LUNGS: Persistent but improved right mid to upper and left upper lobe airspace disease. Mild pulmonary venous congestion. Bilateral central vascular prominence. Please note that chest x-ray has limited sensitivity for the detection of pulmonary masses. PLEURA: No significant pleural effusion identified. No definite pneumothorax . CARDIOVASCULAR: Heart size appears within normal limits. Atherosclerotic calcification present. OSSEOUS STRUCTURES: Osseous demineralization. Degenerative changes. VISUALIZED UPPER ABDOMEN: Unremarkable. OTHER FINDINGS: None. IMPRESSION: Persistent but improved right mid to upper and left upper lobe airspace disease; recommend continued follow-up to complete resolution. Mild pulmonary venous congestion. Bilateral central vascular prominence.
--- NOTE | 2018-11-13 17:07 | CP.PCM.PN ---
<Dread Harding - Last Filed: 11/13/18 17:05> Subjective - Date & Time of Evaluation Date of Evaluation: 11/13/18 Time of Evaluation: 09:25 - Subjective Subjective: PGY2 Pulm Note for Dr. Urbano Patient seen and examined at bedside this AM. Patient resting comfortably sitting upright in bed with high flow nasal cannula off her nose. Patient complains of worsening loss of voice over the last 2 days, severe today. She states that she is no longer coughing. As per daughter, patient's appetite has remained poor but she has been taking all the Ensure. Patient denies SOB, chest pain and/or palpitations. Objective - Vital Signs/Intake and Output Vital Signs (last 24 hours): Temp Pulse Resp BP Pulse Ox 97.4 F L 76 18 107/64 95 11/13/18 08:25 11/13/18 08:25 11/13/18 08:25 11/13/18 08:25 11/13/18 08:25 Intake and Output: 11/13/18 11/13/18 06:59 18:59 Intake Total 250 Balance 250 - Medications Medications: Current Medications Benzonatate (Tessalon Perles) 100 mg PO TID [facility] Last Admin: 11/13/18 14:08 Dose: 100 mg Ergocalciferol (Drisdol 50,000 Intl Units Cap) 1 cap PO QWK [facility] Last Admin: 11/09/18 10:00 Dose: 1 cap Famotidine (Pepcid) 20 mg PO BID [facility] Last Admin: 11/13/18 09:31 Dose: 20 mg Furosemide (Lasix) 10 mg IVP Q12H [facility] Last Admin: 11/13/18 06:18 Dose: 10 mg Heparin Sodium (Porcine) (Heparin) 5,000 units SC Q8 [facility] Lactobacillus Acidophilus (Bacid Acidophilus) 1 cap PO BID [facility] Stop: 12/05/18 18:00 Last Admin: 11/13/18 09:31 Dose: 1 cap Metoprolol Tartrate (Lopressor) 50 mg PO BID [facility] Last Admin: 11/13/18 09:31 Dose: 50 mg Mirtazapine (Remeron) 15 mg PO HS [facility] Last Admin: 11/12/18 22:23 Dose: 15 mg Nortriptyline HCl (Pamelor) 50 mg PO HS [facility] Last Admin: 11/12/18 22:23 Dose: 50 mg Pramipexole Dihydrochloride (Mirapex) 0.5 mg PO DAILY [facility] Last Admin: 11/13/18 09:31 Dose: 0.5 mg Tiotropium [place] (Spiriva) 18 mcg INH RQ24 [facility] Last Admin: 11/13/18 08:58 Dose: Not Given - Labs Labs: 11/13/18 06:59 11/13/18 06:59 - Constitutional Appears: Non-toxic, No Acute Distress - Head Exam Head Exam: ATRAUMATIC, NORMOCEPHALIC - Eye Exam Eye Exam: Normal appearance - ENT Exam ENT Exam: Mucous Membranes Moist Additional comments: No voice - Neck Exam Neck Exam: absent: Lymphadenopathy, Tenderness - Respiratory Exam Respiratory Exam: Clear to Ausculation Bilateral, NORMAL BREATHING PATTERN. absent: Accessory Muscle Use, Rales, Rhonchi, Wheezes, Respiratory Distress - Cardiovascular Exam Cardiovascular Exam: REGULAR RHYTHM, +S1, +S2 - GI/Abdominal Exam GI & Abdominal Exam: Soft. absent: Distended, Firm, Guarding, Rigid, Tenderness - Extremities Exam Extremities Exam: absent: Calf Tenderness, Pedal Edema - Neurological Exam Neurological Exam: Alert, Awake, Oriented x3 - Psychiatric Exam Psychiatric exam: Normal Affect, Normal Mood - Skin Skin Exam: Dry, Warm Assessment and Plan (1) Pulmonary hypertension Assessment & Plan: Pulmonary function test as outpatient --> COPD can not be ruled out due to smoking hx Nebulizer treatment Continue present treatment Discontinue high flow oxygen --> NC @3L Connective tissue w/u chest x-ray consistent with bilateral infiltrate Patient is high risk for bronchoscopy and lung biopsy Status: Acute (2) Laryngitis Assessment & Plan: Recommend ENT consult Status: Acute (3) Ulcerative colitis Status: Acute <Brock Urbano - Last Filed: 11/14/18 12:09> Objective - Vital Signs/Intake and Output Vital Signs (last 24 hours): Temp Pulse Resp BP Pulse Ox 97.3 F L 66 18 94/56 L 100 11/14/18 08:00 11/14/18 08:00 11/14/18 08:00 11/14/18 08:00 11/14/18 08:00 Intake and Output: 11/14/18 11/14/18 06:59 18:59 Intake Total 500 Output Total 600 Balance -100 - Medications Medications: Current Medications Benzonatate (Tessalon Perles) 100 mg PO TID [facility] Last Admin: 11/14/18 10:57 Dose: 100 mg Ergocalciferol (Drisdol 50,000 Intl Units Cap) 1 cap PO QWK [facility] Last Admin: 11/09/18 10:00 Dose: 1 cap Famotidine (Pepcid) 20 mg PO BID [facility] Last Admin: 11/14/18 10:57 Dose: 20 mg Furosemide (Lasix) 10 mg IVP Q12H [facility] Last Admin: 11/13/18 06:18 Dose: 10 mg Heparin Sodium (Porcine) (Heparin) 5,000 units SC Q8 [facility] Last Admin: 11/14/18 05:06 Dose: 5,000 units Lactobacillus Acidophilus (Bacid Acidophilus) 1 cap PO BID [facility] Stop: 12/05/18 18:00 Last Admin: 11/14/18 10:57 Dose: 1 cap Metoprolol Tartrate (Lopressor) 50 mg PO BID [facility] Last Admin: 11/14/18 10:55 Dose: 50 mg Mirtazapine (Remeron) 15 mg PO HS [facility] Last Admin: 11/12/18 22:23 Dose: 15 mg Nortriptyline HCl (Pamelor) 50 mg PO HS [facility] Last Admin: 11/12/18 22:23 Dose: 50 mg Pramipexole Dihydrochloride (Mirapex) 0.5 mg PO DAILY [facility] Last Admin: 11/14/18 10:57 Dose: 0.5 mg Tiotropium [place] (Spiriva) 18 mcg INH RQ24 [facility] Last Admin: 11/13/18 08:58 Dose: Not Given - Labs Labs: 11/14/18 07:15 11/14/18 07:15 Assessment and Plan (1) Pulmonary hypertension Status: Acute (2) Ulcerative colitis Status: Acute Attending/Attestation - Attestation I have personally seen and examined this patient.: Yes I have fully participated in the care of the patient.: Yes I have reviewed all pertinent clinical information, including history, physical exam and plan: Yes Notes (Text): patient seen and examined ddiscontinue high flow oxygen Continue present treatment Diuretics Consider antibiotics
[2018-11-14 07:42] LABS: BASO # 0.1 K/uL (0.0-0.2); BASO % 0.9 % (0.0-2.0); EOS # 1.5 K/uL (0.0-0.7); EOS % 9.8 % (0.0-4.0); HEMOGLOBIN 14.3 g/dL (11.0-16.0); LYMPH # 2.3 K/uL (1.0-4.3); LYMPH % 15.3 % (20.0-40.0); MEAN CELL VOLUME 98.2 fL (81.0-99.0); MEAN CORPUSCULAR HEMOGLOBIN 34.3 pg (27.0-31.0); MEAN CORPUSCULAR HGB CONC 34.9 g/dL (33.0-37.0); MEAN PLATELET VOLUME 10.3 fL (7.2-11.7); MONO # 0.9 K/uL (0.0-0.8); NEUT # 10.3 K/uL (1.8-7.0); RBC 4.15 Mil/uL (3.80-5.20); RED CELL DISTRIBUTION WIDTH 14.3 % (11.5-14.5); WHITE BLOOD COUNT 15.1 K/uL (4.8-10.8)
[2018-11-14 07:54] LABS: ALBUMIN 3.9 g/dL (3.5-5.0); ALT/SGPT 40 U/L (9-52); AST/SGOT 29 U/L (14-36); BLOOD UREA NITROGEN 56 mg/dL (7-17); CALCIUM 9.6 mg/dl (8.6-10.4); GFR NON-AFRICAN AMERICAN > 60
[2018-11-14] MEDS: Tiotropium 18 mcg Cap For Inhalation INH SCH (10:40)
[2018-11-14] MEDS: Lactobacillus Acidophilus 500 MU Cap PO SCH ×2 (10:57→18:23)
--- NOTE | 2018-11-14 12:21 | CP.PCM.PN ---
Subjective - Date & Time of Evaluation Date of Evaluation: 11/14/18 Time of Evaluation: 08:00 - Subjective Subjective: PGY-[address] Martin service Patient is seen and examined at bedside. Patient had no acute events overnight. Patient states feeling well, with no complaints at this time. Patient has nasal cannula in place with oxygen. Patient admits to drinking nutritional supplements. Regular bowel movements and urination. Patient continues to have hoarseness of her voice. Patient denies fever, chills, chest pain, shortness of breath, abdominal pain, nausea, vomiting, diarrhea, constipation, lower extremity pain or swelling. Objective - Vital Signs/Intake and Output Vital Signs (last 24 hours): Temp Pulse Resp BP Pulse Ox 97.3 F L 66 18 94/56 L 100 11/14/18 08:00 11/14/18 08:00 11/14/18 08:00 11/14/18 08:00 11/14/18 08:00 Intake and Output: 11/14/18 11/14/18 06:59 18:59 Intake Total 500 Output Total 600 Balance -100 - Medications Medications: Current Medications Benzonatate (Tessalon Perles) 100 mg PO TID [facility] Last Admin: 11/14/18 10:57 Dose: 100 mg Ergocalciferol (Drisdol 50,000 Intl Units Cap) 1 cap PO QWK [facility] Last Admin: 11/09/18 10:00 Dose: 1 cap Famotidine (Pepcid) 20 mg PO BID [facility] Last Admin: 11/14/18 10:57 Dose: 20 mg Furosemide (Lasix) 10 mg IVP Q12H [facility] Last Admin: 11/13/18 06:18 Dose: 10 mg Heparin Sodium (Porcine) (Heparin) 5,000 units SC Q8 [facility] Last Admin: 11/14/18 05:06 Dose: 5,000 units Lactobacillus Acidophilus (Bacid Acidophilus) 1 cap PO BID [facility] Stop: 12/05/18 18:00 Last Admin: 11/14/18 10:57 Dose: 1 cap Metoprolol Tartrate (Lopressor) 50 mg PO BID [facility] Last Admin: 11/14/18 10:55 Dose: 50 mg Mirtazapine (Remeron) 15 mg PO HS [facility] Last Admin: 11/12/18 22:23 Dose: 15 mg Nortriptyline HCl (Pamelor) 50 mg PO HS [facility] Last Admin: 11/12/18 22:23 Dose: 50 mg Pramipexole Dihydrochloride (Mirapex) 0.5 mg PO DAILY [facility] Last Admin: 11/14/18 10:57 Dose: 0.5 mg Tiotropium [place] (Spiriva) 18 mcg INH RQ24 [facility] Last Admin: 11/13/18 08:58 Dose: Not Given - Labs Labs: 11/14/18 07:15 11/14/18 07:15 - Constitutional Appears: Non-toxic, No Acute Distress, Chronically Ill - Head Exam Head Exam: ATRAUMATIC, NORMAL INSPECTION, NORMOCEPHALIC - Eye Exam Eye Exam: EOMI - ENT Exam ENT Exam: Mucous Membranes Dry, Normal Exam - Neck Exam Neck Exam: Full ROM, Normal Inspection - Respiratory Exam Respiratory Exam: Decreased Breath Sounds (b/l lower lobes), NORMAL BREATHING PATTERN. absent: Accessory Muscle Use, Rhonchi, Wheezes, Respiratory Distress - Cardiovascular Exam Cardiovascular Exam: REGULAR RHYTHM, +S1, +S2 - GI/Abdominal Exam GI & Abdominal Exam: Soft, Normal Bowel Sounds. absent: Distended, Tenderness - Extremities Exam Extremities Exam: Full ROM, Normal Inspection. absent: Pedal Edema, Tenderness - Neurological Exam Neurological Exam: Alert, Awake, Oriented x3 - Psychiatric Exam Psychiatric exam: Normal Affect, Normal Mood - Skin Skin Exam: Dry, Intact, Normal Color, Warm Assessment and Plan - Assessment and Plan (Free Text) Plan: Pulmonary Edema/congestion - ? possible diastolic HF exarcerbation vs pulmonary HTN - CXR (11/08): developing multifocal pneumonia vs. pulm edema superimposed on severe pulm venous congestion - repeat CXR: Little interval change in multifocal pneumonia versis pulmonary edema, superimposed on severe pulmonary venous congestion. - BNP 7720, elevated from 795 on 04/20/18 - UA neg, Influenza A, B neg - given IVF in ED, suspect fluid overload - given Lasix 20mg IVP, f/u CXR at 1pm christina. if improved, will confirm fluid overload. If not improved, will start antibiotics - not starting antibiotics at this point due to extensive antibiotics given last admission and suspicion against newly developing pneumonia. - extensively treated with Primaxin and metronidazole as noted below 11/14/17 - WBC increased from 12 to 15 - pro-calcitonin - less than 0.05 - blood cultures -f/u - previous blood culture - no growth - most likely reactive - Dr Summers - ID consult - likely acute exac COPD/CHF - cultures negative - overall poor prognosis - Dr Rodas - Cardiology consult - evaluation for HF exarcerb - help is appreciated - echo last admission significant for pulmonary HTN. - stress test is negative for myocardial ischemia - Dr Avery Urbano - Pulmonology consult - WBC rise from 8.9 to 12 to now 15. procal, blood cultures. afebrile - cont Metoprolol 50mg po bid - cont Lasix 10mg IVP Q12H - maintain HOB at 45 degrees - strict I&Os - daily weights Hoarseness - ENT consulted, Dr. Reyes- laryngitis due to recent multifocal pneumonia - 3 L nasal canula - Tessalon [place] 100mg po tid COPD - Tessalon Pearles 100mg po tid - Spiriva 18mcg INH daily - Continue O2 high flow Parkinson's - Mirapex 0.5mg po daily Depression - Mirtazapine 15mg po hs - Nortriptyline 50mg po hs VitD deficiency - Ergocalciferol 1 cap po qwk Hx C.diff colitis - no diarrhea at this time - no abx Hypokalemia - follow up am labs - replete as needed PPx - DVT: Heparin 5000u sc q8, SCDs - GI: home Pepcid 20mg po bid, Bacid - Diet: HHD, Ensure Enlive 3 bottles, [place] - PT/OT - recommending [facility] - SW: planning for d/c with PT recs to [facility] most likely 11/13/2018 - telemetry d/c'ed DISPO: If patient continues to be stable, no acute changes and labs are unchanged, patient can be d/c to subacute rehab tomorrow 11/15/18. As per , patient can be transferred to [place] when medically cleared. Bipap setting sent to [facility] placement. Plan discussed with Dr. Veronica Daly, PGY-1
--- NOTE | 2018-11-14 18:38 | CP.PCM.PN ---
Subjective - Date & Time of Evaluation Date of Evaluation: 11/14/18 Time of Evaluation: 12:00 - Subjective Subjective: Patient seen and examined at bedside this AM. Patient resting comfortably, afebrile, satting 100% on 3L NC. Patient denies cough, SOB, chest pain. A&P: 1. Pneumonia - 11/08/18 - b/l infiltrates on CXR: multifocal pneumonia vs pulmonary venous congestion - 11/13/18 - improvement of b/l infiltrates on CXR - temp 97.3, WBC 15.1 today, up from 12.0 yesterday and 8.9 the day before - get blood cx, C.diff toxin (patient had C.diff during previous admission in Oct) - start antibiotics, check pro calcitonin level 2. Laryngitis - recommend ENT consult Objective - Vital Signs/Intake and Output Vital Signs (last 24 hours): Temp Pulse Resp BP Pulse Ox 98.0 F 66 18 112/64 96 11/14/18 15:15 11/14/18 15:15 11/14/18 15:15 11/14/18 15:15 11/14/18 15:15 Intake and Output: 11/14/18 11/14/18 06:59 18:59 Intake Total 500 Output Total 600 Balance -100 - Medications Medications: Current Medications Benzonatate (Tessalon Perles) 100 mg PO TID [facility] Last Admin: 11/14/18 18:24 Dose: 100 mg Ergocalciferol (Drisdol 50,000 Intl Units Cap) 1 cap PO QWK [facility] Last Admin: 11/09/18 10:00 Dose: 1 cap Famotidine (Pepcid) 20 mg PO BID [facility] Last Admin: 11/14/18 18:27 Dose: 20 mg Furosemide (Lasix) 10 mg IVP Q12H [facility] Last Admin: 11/13/18 06:18 Dose: 10 mg Heparin Sodium (Porcine) (Heparin) 5,000 units SC Q8 [facility] Last Admin: 11/14/18 14:56 Dose: 5,000 units Lactobacillus Acidophilus (Bacid Acidophilus) 1 cap PO BID [facility] Stop: 12/05/18 18:00 Last Admin: 11/14/18 18:23 Dose: 1 cap Metoprolol Tartrate (Lopressor) 50 mg PO BID [facility] Last Admin: 11/14/18 18:23 Dose: 50 mg Mirtazapine (Remeron) 15 mg PO HS [facility] Last Admin: 11/12/18 22:23 Dose: 15 mg Nortriptyline HCl (Pamelor) 50 mg PO HS [facility] Last Admin: 11/12/18 22:23 Dose: 50 mg Pramipexole Dihydrochloride (Mirapex) 0.5 mg PO DAILY [facility] Last Admin: 11/14/18 10:57 Dose: 0.5 mg Tiotropium [place] (Spiriva) 18 mcg INH RQ24 [facility] Last Admin: 11/14/18 10:40 Dose: 18 mcg - Labs Labs: 11/14/18 07:15 11/14/18 07:15 Assessment and Plan (1) Pulmonary hypertension Status: Acute (2) Ulcerative colitis Status: Acute
--- NOTE | 2018-11-14 20:01 | OP ---
PROCEDURE DATE: 11/14/2018 PREPROCEDURE DIAGNOSIS: Hoarseness. POSTPROCEDURE DIAGNOSIS: Hoarseness. PROCEDURE: Flexible laryngoscopy. SIGNIFICANT FINDINGS: Erythema and mild edema of vocal cords. DESCRIPTION OF PROCEDURE: The patient was placed in a supine position. Flexible laryngoscope was inserted into the nasal cavity, passed to the nasopharynx, oropharynx, and hypopharynx. The pharyngeal meade, base of tongue, vallecula, epiglottis, AE folds, false cord, true cord, arytenoids, piriform sinuses were brought into view. No masses or lesions were noted. Erythema and mild edema of the vocal cords was noted. The scope was removed. The patient tolerated the procedure well. Enrrique Reyes MD
[2018-11-14 20:24] LABS: SQUAMOUS EPITHIAL < 1 /hpf (0-5); URINE BILIRUBIN NEGATIVE (NEGATIVE); URINE BLOOD NEGATIVE (NEGATIVE); URINE CLARITY Hazy (Clear); URINE COLOR Yellow (YELLOW); URINE GLUCOSE (UA) NORMAL (Normal); URINE LEUKOCYTE ESTERASE NEG Leu/uL (Negative); URINE PROTEIN NEGATIVE (NEGATIVE); URINE UROBILINOGEN NORMAL mg/dL (0.2-1.0)
[2018-11-15 07:51] LABS: BASO # 0.1 K/uL (0.0-0.2); EOS # 1.3 K/uL (0.0-0.7); EOS % 10.6 % (0.0-4.0); LYMPH # 2.4 K/uL (1.0-4.3); LYMPH % 19.8 % (20.0-40.0); MEAN CELL VOLUME 98.9 fL (81.0-99.0); MEAN CORPUSCULAR HGB CONC 33.3 g/dL (33.0-37.0); MEAN PLATELET VOLUME 9.8 fL (7.2-11.7); MONO % 8.3 % (0.0-10.0); NEUT # 7.5 K/uL (1.8-7.0); NEUT % 60.3 % (50.0-75.0); NRBC % 0.1 % (0.0-2.0); RBC 4.54 Mil/uL (3.80-5.20); WHITE BLOOD COUNT 12.4 K/uL (4.8-10.8)
[2018-11-15 07:55] VITALS: RESP 18
[2018-11-15 08:01] LABS: ALBUMIN 3.9 g/dL (3.5-5.0); ALT/SGPT 37 U/L (9-52); AST/SGOT 30 U/L (14-36); BLOOD UREA NITROGEN 58 mg/dL (7-17); CALCIUM 9.5 mg/dl (8.6-10.4); GFR NON-AFRICAN AMERICAN > 60
[2018-11-15] MEDS: Lactobacillus Acidophilus 500 MU Cap PO SCH (09:25)
[2018-11-15] MEDS ORDERED: Home Med 1 UNIT (Alendronate [Fosamax] 70 MG) PO SCH (10:00)
[2018-11-15] MEDS ORDERED: Pneumococcal 23-Valent Vaccine IM ONE (14:00)
[2018-11-15] MEDS ORDERED: Influenza Vaccine 60 MCG/0.5 ML SYR (3 yr & up) IM ONE ×3 (14:00→15:05)
[2018-11-15] MEDS ORDERED: Influenza Vaccine 60 mcg/0.5 mL SYR (4YR UP) IM ONE (15:15)
--- NOTE | 2018-11-15 16:31 | CP.PCM.DIS ---
Provider - Provider Date of Admission: 11/08/18 14:26 Attending physician: Giancarlo Hernandez MD Consults: 11/13/18 13:48 ENT [Otolaryngology Consult] Routine Consulting Provider: Enrrique Reyes Consulting Physician: Enrrique Reyes Reason for Consult: Hoarseness 11/08/18 16:28 Hospice/Home Health Aide [Case Management Referral] Routine Comment: Physician Instructions: Reason For Exam: Reason for Referral: Discharge Planning 11/08/18 18:46 Inpatient [facility] [employer] Me[employer] Referral Routine Comment: Physician Instructions: Reason For Exam: hx pneumonia, copd 11/09/18 13:59 Cardiology Consult Routine Comment: Consulting Provider: Mitchell Rodas Consulting Physician: Mitchell Rodas Reason for Consult: Likely Heart Failure Excerbation. Family Request for [place] 11/09/18 19:28 Infectious Disease Consult Routine Comment: Consulting Provider: Mandeep Summers Consulting Physician: Mandeep Summers Reason for Consult: Prev admission with Multifoc PNA effectively treated w/ abx 11/11/18 15:50 Pulmonology Consult Routine Comment: Consulting Provider: Brock Urbano Consulting Physician: Brock Urbano Reason for Consult: Pulmonary HTN, rx recommendations Time Spent in preparation of Discharge (in minutes): 180 Diagnosis - Discharge Diagnosis (1) Dyspnea Status: Acute (2) Hypoxia Status: Acute (3) COPD (chronic obstructive pulmonary disease) Status: Acute (4) HTN (hypertension) Status: Acute (5) SOB (shortness of breath) Status: Acute (6) Fluid overload Status: Acute (7) Laryngitis Status: Acute (8) Pulmonary hypertension Status: Acute Hospital Course - Lab Results Lab Results: Micro Results 11/14/18 14:08 Blood Blood Culture - Preliminary NO GROWTH AFTER 24 HOURS 11/14/18 14:08 Blood Blood Culture - Preliminary NO GROWTH AFTER 24 HOURS 11/08/18 12:15 Blood-Venous Blood Culture - Final NO GROWTH AFTER 5 DAYS 11/08/18 11:56 Blood-Venous Blood Culture - Final NO GROWTH AFTER 5 DAYS 11/08/18 11:56 Blood-Venous Gram Stain - Final TEST NOT PERFORMED Most Recent Lab Values WBC 12.4 K/uL (4.8-10.8) H 11/15/18 07:40 RBC 4.54 Mil/uL (3.80-5.20) 11/15/18 07:40 Hgb 15.0 g/dL (11.0-16.0) 11/15/18 07:40 Hct 44.9 % (34.0-47.0) 11/15/18 07:40 MCV 98.9 fL (81.0-99.0) 11/15/18 07:40 MCH 33.0 pg (27.0-31.0) H 11/15/18 07:40 MCHC 33.3 g/dL (33.0-37.0) 11/15/18 07:40 RDW 14.0 % (11.5-14.5) 11/15/18 07:40 Plt Count 228 K/uL (130-400) 11/15/18 07:40 MPV 9.8 fL (7.2-11.7) 11/15/18 07:40 Neut % (Auto) 60.3 % (50.0-75.0) 11/15/18 07:40 Lymph % (Auto) 19.8 % (20.0-40.0) L 11/15/18 07:40 [place] % (Auto) 8.3 % (0.0-10.0) 11/15/18 07:40 Eos % (Auto) 10.6 % (0.0-4.0) H 11/15/18 07:40 Baso % (Auto) 1.0 % (0.0-2.0) 11/15/18 07:40 Neut # (Auto) 7.5 K/uL (1.8-7.0) H 11/15/18 07:40 Lymph # (Auto) 2.4 K/uL (1.0-4.3) 11/15/18 07:40 [place] # (Auto) 1.0 K/uL (0.0-0.8) H 11/15/18 07:40 Eos # (Auto) 1.3 K/uL (0.0-0.7) H 11/15/18 07:40 Baso # (Auto) 0.1 K/uL (0.0-0.2) 11/15/18 07:40 pO2 34 mm/Hg (30-55) 11/08/18 11:45 VBG pH 7.43 (7.32-7.43) 11/08/18 11:45 VBG pCO2 49 mmHg (40-60) 11/08/18 11:45 VBG HCO3 29.5 mmol/L 11/08/18 11:45 VBG Total CO2 34.0 mmol/L (22-28) H 11/08/18 11:45 VBG O2 Sat (Calc) 70.5 % (40-65) H 11/08/18 11:45 VBG Base Excess 6.9 mmol/L (0.0-2.0) H 11/08/18 11:45 VBG Potassium 3.3 mmol/L (3.6-5.2) L 11/08/18 11:45 Sodium 141.0 mmol/l (132-148) 11/08/18 11:45 Chloride 101.0 mmol/L (98-107) 11/08/18 11:45 Glucose 72 mg/dl (65-105) 11/08/18 11:45 Lactate 1.6 mmol/L (0.7-2.1) 11/08/18 11:45 Sodium 132 mmol/L (132-148) 11/15/18 07:40 Potassium 3.9 mmol/L (3.6-5.2) 11/15/18 07:40 Chloride 88 mmol/L (98-107) L 11/15/18 07:40 Carbon Dioxide 37 mmol/L (22-30) H 11/15/18 07:40 Anion Gap 12 (10-20) 11/15/18 07:40 BUN 58 mg/dL (7-17) H 11/15/18 07:40 Creatinine 0.7 mg/dL (0.7-1.2) 11/15/18 07:40 Est GFR ( Amer) > 60 11/15/18 07:40 Est GFR (Non-Af Amer) > 60 11/15/18 07:40 POC Glucose (mg/dL) 158 mg/dL (65-110) H 11/15/18 11:04 Random Glucose 105 mg/dL (65-105) 11/15/18 07:40 Calcium 9.5 mg/dl (8.6-10.4) 11/15/18 07:40 Phosphorus 4.2 mg/dL (2.5-4.5) 11/15/18 07:40 Magnesium 2.3 mg/dL (1.6-2.3) 11/15/18 07:40 Total Bilirubin 0.8 mg/dL (0.2-1.3) 11/15/18 07:40 AST 30 U/L (14-36) 11/15/18 07:40 ALT 37 U/L (9-52) 11/15/18 07:40 Alkaline Phosphatase 131 U/L (38-126) H 11/15/18 07:40 NT-Pro-B Natriuret Pep 7720 pg/mL (0-900) H 11/08/18 15:29 Total Protein 7.6 g/dL (6.3-8.3) 11/15/18 07:40 Albumin 3.9 g/dL (3.5-5.0) 11/15/18 07:40 Globulin 3.7 gm/dL (2.2-3.9) 11/15/18 07:40 Albumin/Globulin Ratio 1.0 (1.0-2.1) 11/15/18 07:40 Procalcitonin < 0.05 NG/ML (0.19-0.49) L 11/14/18 14:08 Venous Blood Potassium 3.3 mmol/L (3.6-5.2) L 11/08/18 11:45 Urine Color Yellow (YELLOW) 11/14/18 20:13 Urine Clarity Hazy (Clear) 11/14/18 20:13 Urine pH 6.0 (5.0-8.0) 11/14/18 20:13 Ur Specific [place] 1.020 (1.003-1.030) 11/14/18 20:13 Urine Protein Negative mg/dL (NEGATIVE) 11/14/18 20:13 Urine Glucose (UA) Normal mg/dL (Normal) 11/14/18 20:13 Urine Ketones Negative mg/dL (NEGATIVE) 11/14/18 20:13 Urine Blood Negative (NEGATIVE) 11/14/18 20:13 Urine Nitrate Negative (NEGATIVE) 11/14/18 20:13 Urine Bilirubin Negative (NEGATIVE) 11/14/18 20:13 Urine Urobilinogen Normal mg/dL (0.2-1.0) 11/14/18 20:13 Ur Leukocyte Esterase Neg [place]/uL (Negative) 11/14/18 20:13 Urine WBC (Auto) 1 /hpf (0-5) 11/14/18 20:13 Urine RBC (Auto) 2 /hpf (0-3) 11/14/18 20:13 Ur Squamous Epith Cells < 1 /hpf (0-5) 11/14/18 20:13 Influenza Typ A,B (EIA) Negative for flu a/b (NEGATIVE) 11/08/18 14:40 - Hospital Course Hospital Course: On admission Ms. Cano is a 77 year old female with PMH ulcerative colitis, nephrolithiasis, herpes zoster, Parkinson's, remote history of DVT with recent admission for C Diff was recently discharged on 11/06 for multifocal pneumonia. She comes today for generalized weakness and overall deconditioning. She did fill her prescriptions are prescribed and her son (who is a pharmacist) divided her medications to not be mixed up by day. However, she has not left the bed since being discharged and ran out of home oxygen after the first day since she was unaware it had to be refilled and the oxygen continuous. She has not been encouraged to exercise or get out of bed since being discharged. Sister called ambulance today after patient reported feeling too weak to even walk to the bathroom. Patient had refused [facility] on discharge. On hospitalization: Patient admitted to r/o Pulmonary edema vs Developing multifocal PNA. Cxray at admission shows developing multifocal pneumonia vs. pulm edema superimposed on severe pulm venous congestion. repeat CXR: Little interval change in multifocal pneumonia versis pulmonary edema, superimposed on severe pulmonary venous congestion. VBG on admission shows CO2 retention, with BNP 7720. UA neg, Influenza A, B neg. Patient was not started on abx during this admission due to extensive abx use given last admission with primaxin and metronidazole. Steroid taper given at last admission's discharge was completed in this hospitlization. Lasix given 20mg IVP. Patient was ordered lasix 10 mg IVP Q12h as it improved her symptoms. Patient placed on high flow O2. ID and Cardiology consults made. as per cardiology, pulmonary HTN from last echo, stress test negative for ischemia. Pulmonary consult for evaluation of pulm HTN. ENT consult for eval of horaness/laryngitis. patient was placed on metoprolol, and maintianed HOB at 45 degree. Spiriva and tensalon perles for diagnosis of COPD, Mirapex for hx of parkinson's, for hx of depression, continue mirtazapine and nortriptyline. Vitamin D supplement given weekly. DVT ppx with Heparin 5000 sc q8, SCDs, GI prophylaxis with home pepcid 20mg po BID, bacid, diet: HHD, ensure 3 bottles daily. PT/OT was consulted and recommended [facility]. On Discharge: Patient is cleared for discharge per Dr. Martin and Dr Urbano to [facility] at [facility] and [facility] in [address] [place] [address] Patient is to continue taking the following medications: Ergocalciferol 50,000 U one tab by mouth once per month Fosmax 70 mg one tab by mouth once per week Tessalon Perles 100 mg one tab by mouth three times a day at 8am, 2pm, and 8pm as needed for cough. Do not chew. Lactobacillus 1 cap by mouth twice per day at 8am and 8pm Lopressor 50 mg one tab by mouth twice per day at 8am and 8pm Remerol 15 mg one tab by mouth at bedtime Nortriptyline 25 mg two tabs by mouth at bedtime Mirapex 0.5 mg one tab by mouth daily at 8am Spiriva 18 mcg inhaled once daily at 8am Bipap as needed for dyspnea or sp02 desaturation - 10/5 at 50% Follow up with primary and specialists once discharged from [facility]. Please return to ER if symptoms recur or worsen This is a brief summary of patient's hospitalization course. For more information please refer to patient's EMR. - Date & Time of H&P Date of H&P: 11/08/18 Time of H&P: 19:35 Discharge Exam - Head Exam Head Exam: ATRAUMATIC, NORMAL INSPECTION, NORMOCEPHALIC - Eye Exam Eye Exam: EOMI, Normal appearance - Respiratory Exam Respiratory Exam: Rales, NORMAL BREATHING PATTERN. absent: Accessory Muscle Use, Respiratory Distress - Cardiovascular Exam Cardiovascular Exam: REGULAR RHYTHM, +S1, +S2 - GI/Abdominal Exam GI & Abdominal Exam: Normal Bowel Sounds, Soft - Extremities Exam Extremities exam: pedal pulses present - Neurological Exam Neurological exam: Alert, CN II-XII Intact, Oriented x3 - Psychiatric Exam Psychiatric exam: Normal Affect, Normal Mood - Skin Skin Exam: Dry, Intact, Normal Color, Warm Discharge Plan - Follow Up Plan Condition: GOOD Disposition: REHAB FACILITY/REHAB UNIT Instructions: Shortness of Breath (Dyspnea) (DC), Low Salt Diet, Fever, Adult (DC), Laryngitis (DC), Laryngoscopy (DC), Hypertension (DC) Additional Instructions: Patient is cleared for discharge per Dr. Martin and Dr Urbano to [facility] at [facility] in [address] [place] [address] Patient is to continue taking the following medications: Ergocalciferol 50,000 U one tab by mouth once per month Fosmax 70 mg one tab by mouth once per week Tessalon Perles 100 mg one tab by mouth three times a day at 8am, 2pm, and 8pm as needed for cough. Do not chew. Lactobacillus 1 cap by mouth twice per day at 8am and 8pm Lopressor 50 mg one tab by mouth twice per day at 8am and 8pm Remerol 15 mg one tab by mouth at bedtime Nortriptyline 25 mg two tabs by mouth at bedtime Mirapex 0.5 mg one tab by mouth daily at 8am Spiriva 18 mcg inhaled once daily at 8am Bipap as needed for dyspnea or sp02 desaturation - 10/5 at 50% Follow up with primary and specialists once discharged from [facility]. Please return to ER if symptoms recur or worsen Referrals: Brock Urbano MD [Staff Provider] -
--- NOTE | 2018-11-15 17:46 | CP.PCM.PN ---
Subjective - Date & Time of Evaluation Date of Evaluation: 11/15/18 Time of Evaluation: 13:00 - Subjective Subjective: Patient seen and examined at bedside this AM. Patient resting comfortably, afebrile, satting 100% on 3L NC. Patient denies cough, SOB, chest pain. Her loss of voice has improved. A&P: 1. Pneumonia - 11/08/18 - b/l infiltrates on CXR: multifocal pneumonia vs pulmonary venous congestion - 11/13/18 - improvement of b/l infiltrates on CXR - temp 98.0, WBC 12.4 today, 15.1 yesterday, and 12 the day before, continue to monitor 2. Pulmonary hypertension - BNP 7720 on arrival, likely due to recent stress echo - May be due to history of ulcerative colitis, procalcitonin pending - May be due to decreased oncotic pressure secondary to malnutrition (initial albumin 2.7, protein 5.6); albumin 3.9, protein 7.8 today. - LVEF of 56.9% (10/28/18) - hold Lasix, BP is 94/56 today - continue Spiriva 3. Hyperglycemia - blood glucose 105 this AM, down from 120, patient had PO Prednisone at initial admission, continue to monitor Objective - Vital Signs/Intake and Output Vital Signs (last 24 hours): Temp Pulse Resp BP Pulse Ox 98.0 F 73 18 114/72 100 11/15/18 07:00 11/15/18 07:00 11/15/18 07:00 11/15/18 07:00 11/15/18 07:00 - Medications Medications: Current Medications Benzonatate (Tessalon Perles) 100 mg PO TID [facility] Last Admin: 11/15/18 14:40 Dose: 100 mg Ergocalciferol (Drisdol 50,000 Intl Units Cap) 1 cap PO QWK [facility] Last Admin: 11/09/18 10:00 Dose: 1 cap Famotidine (Pepcid) 20 mg PO BID [facility] Last Admin: 11/15/18 09:25 Dose: 20 mg Furosemide (Lasix) 10 mg IVP Q12H [facility] Last Admin: 11/13/18 06:18 Dose: 10 mg Heparin Sodium (Porcine) (Heparin) 5,000 units SC Q8 [facility] Last Admin: 11/15/18 14:40 Dose: 5,000 units Lactobacillus Acidophilus (Bacid Acidophilus) 1 cap PO BID [facility] Stop: 12/05/18 18:00 Last Admin: 11/15/18 09:25 Dose: 1 cap Metoprolol Tartrate (Lopressor) 50 mg PO BID [facility] Last Admin: 11/15/18 09:25 Dose: 50 mg Mirtazapine (Remeron) 15 mg PO HS [facility] Last Admin: 11/14/18 22:03 Dose: 15 mg Nortriptyline HCl (Pamelor) 50 mg PO HS [facility] Last Admin: 11/14/18 22:03 Dose: 50 mg Pramipexole Dihydrochloride (Mirapex) 0.5 mg PO DAILY [facility] Last Admin: 11/15/18 09:25 Dose: 0.5 mg Tiotropium [place] (Spiriva) 18 mcg INH RQ24 [facility] Last Admin: 11/14/18 10:40 Dose: 18 mcg - Labs Labs: 11/15/18 07:40 11/15/18 07:40 Assessment and Plan (1) Pulmonary hypertension Status: Acute (2) Ulcerative colitis Status: Acute
[2018-11-15 17:49] VITALS: BP 107/64; PULSE 62; TEMP 98.2; O2SAT 98
== END 2018-11-15 17:49 | DRG 190 ==
LOC: C.ER 09:55 → C.9E 14:26 → C.6T 16:21
PROVIDERS: ADMIT Family Medicine; ATTEND Family Medicine
PROC: 5A09457 Assistance with Respiratory Ventilation, 24-96 Consecutive Hours, Continuous Positive Airway Pressure (ICD-10-PCS; 2018-11-08)
PROC: 0CJS8ZZ Inspection of Larynx, Via Natural or Artificial Opening Endoscopic (ICD-10-PCS; principal; 2018-11-14)
DX: J44.0 Chronic obstructive pulmonary disease with (acute) lower respiratory infection (principal); J18.9 Pneumonia, unspecified organism; E87.2 Acidosis; K50.90 Crohn's disease, unspecified, without complications; I11.0 Hypertensive heart disease with heart failure; I50.9 Heart failure, unspecified; J04.0 Acute laryngitis; I73.9 Peripheral vascular disease, unspecified; I27.20 Pulmonary hypertension, unspecified; G20 Parkinson's disease; Z66 Do not resuscitate; R09.02 Hypoxemia; Z87.891 Personal history of nicotine dependence